=== PATIENT | female | born 1950 | race Caucasian/White ===

== ENCOUNTER → 2019-10-25 00:01 | Outpatient (RCR) | payer MEDICARE, OTHER, SELFPAY | LOC: ONCMED 08:42 | PROVIDERS: Visit Provider Internal Medicine Medical Oncology | DX: C50.812 Malignant neoplasm of overlapping sites of left female breast (principal); C50.811 Malignant neoplasm of overlapping sites of right female breast; C77.3 Secondary and unspecified malignant neoplasm of axilla and upper limb lymph nodes; Z17.0 Estrogen receptor positive status [ER+]; I10 Essential (primary) hypertension; E03.9 Hypothyroidism, unspecified; D64.9 Anemia, unspecified; F10.20 Alcohol dependence, uncomplicated; Z79.82 Long term (current) use of aspirin; F41.8 Other specified anxiety disorders; Z79.899 Other long term (current) drug therapy; Z85.42 Personal history of malignant neoplasm of other parts of uterus; Z87.891 Personal history of nicotine dependence; Z92.3 Personal history of irradiation | CPT/HCPCS: 36591; 80053; 82306; 82607; 83735; 83880; 84439; 84443; 85025; 99214; J1642 ==

== ENCOUNTER 2019-11-01 06:00 | Outpatient (RCR) | payer MEDICARE, OTHER, SELFPAY ==
[2019-11-01 08:26] LABS: Basophils # 0.1 10^3/uL (0.0-0.1); Basophils % 1.8 %; Eosinophils # 0.1 10^3/uL (0.0-0.8); Eosinophils % 2.3 %; Hematocrit 41.9 % (37.0-47.0); Hemoglobin 13.6 g/dL (11.5-15.3); Lymphocytes # 1.5 10^3/uL (0.8-4.8); Lymphocytes % 37.2 %; Mean Corpuscular HGB Conc 32.5 g/dL (30.0-36.0); Mean Corpuscular Volume 101.7 fL (81-99); Mean Platelet Volume 11.2 fL (7.4-10.4); Monocytes # 0.4 10^3/uL (0.2-0.9); Monocytes % 10.7 %; Neutrophils # 1.9 10^3/uL (1.8-7.7); Nucleated Red Blood Cells % 0 %; Platelet Count 119 10^3/cmm (130-400); Red Blood Count 4.12 10^6/uL (4.1-5.3); Red Cell Distribution Width 14.8 % (12.1-15.1); White Blood Count 3.9 10^3/uL (4.0-10.0)
[2019-11-01 08:40] LABS: Alanine Aminotransferase 17 U/L (0-33); Albumin Level 3.9 g/dL (3.5-5.2); Alkaline Phosphatase 105 IU/L (35-105); Anion Gap 16.8 (5-19); Aspartate Amino Transferase 37 U/L (0-32); Blood Urea Nitrogen 17 mg/dL (8-23); Calcium 10.3 mg/Dl (8.8-10.2); Carbon Dioxide 26 mmol/L (22-29); Chloride 98 mmol/L (98-107); Globulin 3.4 g/dL (1.3-4.6); Glomerular Filtration Rate 71.5 mL/min (90-130); Glucose 106 mg/dL (74-106); Potassium 3.8 mmol/L (3.5-5.1); Sodium 137 mmol/L (136-145); Total Bilirubin 0.9 mg/dL (0.15-1.2); Total Protein 7.3 g/dL (6.6-8.7)
[2019-11-01] MEDS: diphenhydrAMINE 25 mg Capsule PO (10:14)
[2019-11-01] MEDS: acetaminophen 325 mg Tablet 650 MG PO (10:15)
[2019-11-01 13:33] LABS: Magnesium 1.6 mg/dL (1.7-2.3)
--- NOTE | 2019-11-07 10:39 | ONC FU_ITS ---
Dr. Rascon Patient Follow-Up Note Patient: Bee Zheng Unit #: [id number]: 1950 Dicatated By: Tab Rascon M.D.Date of Visit:Nov 01, 2019 Onc Med Follow-up/Prog Note Chief Complaint: Bilateral breast cancer. History of Present Illness: This is a 69 year-old woman with bilateral invasive breast cancer, both locally advanced. The right breast was grade 2 infiltrating ductal carcinoma, stage at least IIB (T2, N1, M0), ER/OH positive and HER-2/bernadine negative. The left breast cancer was grade 3 infiltrating ductal carcinoma, stage at least IIA (T2, NX, M0), ER/OH positive and HER-2/bernadine positive. She had presented with gradually worsening swelling and firmness in her breasts after she had sustained a chest injury in a fall about 9 months ago. Bilateral mammograms on 03/23/2019 were BI-RADS 5, highly suggestive of malignancy. Findings included areas of dense asymmetry in the central right breast measuring 3.5 cm and in the central left breast measuring 4.5 by 3.9 cm. The right breast ultrasound showed an irregular hypoechoic mass at 12:00, middle depth, measuring 3.5 x 2.2 cm. Also noted was eccentric thickening of a lymph node in the right axilla. The left breast ultrasound showed a large amount of shadowing within the central breast mass containing calcifications at 12:00, measuring 4.6 x 3.7 cm. There were small benign-appearing lymph nodes on the left. She underwent bilateral ultrasound-guided biopsies on 04/06/2019. The left breast showed grade 3 infiltrating ductal carcinoma with a minor DCIS component. The breast prognostic profile showed ER positive at 87% and OH positive at 72%. There was overexpression of HER-2/bernadine, 3+ by IHC and amplification ratio by FISH of 2.3 with 7.0 HER-2 copies/cell. The Ki-67 was unfavorable at 22%. The right breast showed grade 2 infiltrating ductal carcinoma. A subsequent prognostic profile on the right breast biopsy showed ER positive at 87% and OH positive at 21%. That tumor was negative for overexpression of HER-2/bernadine, 1+ by IHC and amplification ratio by FISH of 1.0 with 2.4 HER-2 copies/cell. Staging PET/CT on 05/07/2019 showed FDG avid right breast lesion measuring 2.1 cm, SUV 13.7, and a solitary hypermetabolic right axillary lymph node with SUV 5.3, consistent with local metastatic disease. Other right axillary lymph nodes were too small to characterize by PET. The left breast showed 2 nearly contiguous lesions, the more dominant measuring 2.5 x 3.8 cm with SUV 8.3. The more inferior and lateral lesion measured 1.3 x 1.5 cm with SUV 11.7. Left axillary lymph nodes were too small to characterize by PET. There were no areas of uptake to suggest any other metastatic disease. A needle biopsy of the right axillary lymph node on 05/19/2019 showed metastatic carcinoma most consistent with breast primary. Given those findings and with HER-2/bernadine positive disease in the left breast, she was recommended to undergo neoadjuvant chemotherapy with TCH-P. Her medical history is otherwise significant in that she had presented in 2014 anemia, severe enough to require transfusion. This was ultimately determined to be due to endometrial cancer, for which she underwent hysterectomy/bilateral salpingo-oophorectomy. Those records are not available at this time. She indicates that there was no lymph node involvement. She apparently did receive postoperative radiation with HDR implant. There has been no evidence of recurrence of the endometrial cancer. Her other medical illnesses include hypertension and hypothyroidism. She has a history of smoking 1-2 packs of cigarettes daily for 50 years. She quit smoking in 2014. She has alcohol use of at least a 6-pack of beer daily. INTERIM HISTORY: On 06/02/2019 she began cycle 1 of neoadjuvant chemotherapy with TCH-P. She tolerated the treatment without acute toxicity. She subsequently developed pretty severe diarrhea, beginning around a 3 or 4. It lasted for 2 weeks. She continued with cycle 2 on 06/28/2019. That treatment was complicated by a pretty severe skin eruption, and she continued to have diarrhea. With cycle 3 on 07/26/2019 I did opt to omit the docetaxel. With had cycle there was no recurrence of skin eruption, but she continued to have severe diarrhea. With cycle 4, on 08/23/2019, I opted to admit the Perjeta and replace the taxane portion of her chemotherapy with Abraxane. On 08/29/2019 she was admitted to the hospital with severe pancytopenia. She continued to have diarrhea and she also developed significant liver dysfunction. She required transfusion of PRBC and platelets. She had uneventful recovery of her white blood cell count, but she continued to have severe thrombocytopenia at discharge, requiring additional outpatient platelet pheresis. I had seen her for a follow-up visit on 09/20/2019. Given the multiple toxicities she had experienced, I opted not to attempt any further chemotherapy. A restaging PET/CT on 09/24/2019 showed primary right breast carcinoma measuring 1.6 cm with SUV 4.6, significantly improved from the prior study. The solitary right axillary lymph node had resolved. The nearly contiguous left breast lesions reported to have SUV of 3.1, also representing a significant response to therapy. At her follow-up visit on 10/25/2019 she still had very limited activity, and she also continued to have significant lower extremity edema. At that point her treatment remained on hold. She is seen for a follow-up visit. She still has limited activity, but she is feeling better than she has been. She is ambulating with a walker. Her ECOG score is 2. Her appetite also is getting better. She has no fever or night sweats. She reports having some hearing loss. She has a little bit of dry cough. She has no shortness of breath or chest pain. She still occasionally has a little nausea. She has just occasional diarrhea now. Bladder function has improved with the diuretic. She is having pain in her back, particularly in the area of the shoulder blade on the left side. She is having significant neuropathy pain in her legs. Medications: Aspirin 1 Tablet (of 81 mg) Oral daily, Imodium A-D 2 Tablet (of 2 mg) Oral b.i.d. PRN, Lasix 1 Tablet (of 40 mg) Oral daily, Levothyroxine Sodium 1 (112 mcg) Tablet Oral daily, LORazepam 0.5 - 1 Tablet (of 1 mg) Oral t.i.d. PRN, Magnesium 1 Tablet Oral b.i.d., Potassium Chloride ER 2 Tablet (of 10 meq) Tablet, controlled release Oral daily, Prochlorperazine Maleate 1 Tablet (of 10 mg) Oral q 4 hours PRN Allergies: No Known Allergies. Review of Systems: Constitutional - Her energy is getting better. She is up and around at home with a walker. Her appetite is getting better, but her weight is down. No fever, chills, hot flashes, or night sweats. ECOG score is 2, ENMT - She has sinus drainage. No mouth sores. No sore throat or difficulty swallowing. Her hearing is decreased in her left ear, Hematologic/Lymphatic - She bruises easily, Respiratory - No shortness of breath. She has an occasional dry cough. No pleuritic pain or hemoptysis, Cardiovascular - No angina pain. No palpitations, Gastrointestinal - She has occasional nausea. No vomiting. No heartburn or acid reflux. She has occasional diarrhea. No blood in the stool or black stools, Genitourinary (F) - No dysuria or hematuria. No urinary frequency. No urgency or incontinence, Musculoskeletal - She has pain in her back, shoulder blades and legs, Integumentary - No skin complications, Neurologic - No headache or dizziness. No numbness/paresthesias or other focal neurologic symptoms, Psychiatric - She has some anxiety and depression. She has trouble sleeping at night. Vital Signs: Performed on Nov 01, 2019 11:10 Height - 66.00 in Temperature - 97.2 F (LOW) Pulse - 99 /min Respiration - 18 /min BP - 135/92 mm(hg) O2 Sat - 96 % Pain - 0 Fatigue - 0 Performed on Nov 01, 2019 09:26 Height - 66.00 in Weight - 176.4 lbs (HIGH) BSA - 1.90 sq.m BMI - 28.47 Temperature - 97.9 F (LOW) Pulse - 110 /min (HIGH) Respiration - 22 /min BP - 93/62 mm(hg) O2 Sat - 94 % (LOW) Pain - 2 Physical Examination: Constitutional - She still appears somewhat weak generally, but definitely improved, Eyes - Sclerae nonicteric. Conjunctivae clear, ENMT - No lesions noted in the oral cavity. Both external ear canals appear to be occluded with cerumen, Hematologic/Lymphatic - No cervical, clavicular, or axillary adenopathy, Respiratory - Lungs are clear with good air movement bilaterally, Cardiovascular - Heart rhythm is regular. She has a mild tachycardia, and she appears to have a split S1. There is no murmur, sandrine, or rub noted, Abdomen - Soft. Liver and spleen are not enlarged. There is no abdominal mass or ascites noted and there is no inguinal adenopathy, Extremities - There is just slight residual lower extremity edema, Neurologic - No focal neurologic deficits noted. Lab/Imaging: Test performed on Oct 25, 2019 11:30 Magnesium 1.2 mg/dL T4, Free 1.92 ng/dL TSH 0.56 uIU/mL Vitamin B12 571 pg/mL Vitamin D (25-Hydroxy), Total 52 ng/mL Test performed on Oct 25, 2019 10:14 Sodium 135 mmol/L Potassium 3.5 mmol/L Chloride 99 mmol/L CO2 24 mmol/L Anion Gap 15.5 BUN 11 mg/dL Creatinine 0.7 mg/dL Cr Clearance (Est) 110.2400 mL/min eGFR 83.5 mL/min Glucose 95 mg/dl Calcium 9.6 mg/dL Protein, Total 6.7 g/dL Albumin 3.6 g/dL Globulin 3.1 gm/dL Bilirubin, Total 0.8 mg/dL ALT (SGPT) 14 U/L AST (SGOT) 26 U/L Alkaline Phosphatase 91 U/L WBC 4.0 10 3/uL RBC 3.76 10 6/uL HGB 12.3 g/dL HCT 38.4 % MCV 102.1 fl MCH 32.7 pg MCHC 32.0 g/dl RDW 14.6 % Platelet Count 89 10 3/cmm MPV 11.3 fl Neutrophils 2.1 10 3/uL Lymphocytes 1.4 10 3/uL Monocytes 0.4 10 3/uL Eosinophils 0.1 10 3/uL Basophils 0.1 10 3/uL Neutrophil % 51.3 % Lymphocyte % 35.8 % Monocyte % 9.2 % Eosinophil % 2.0 % Basophils % 1.7 % Test performed on Sep 06, 2019 13:15 Platelet Pheresis, Leukored TRANSFUSED PRODUCT: LEUKRD/PLAT PHERESIS 1ST CONT COUNT: 2 ABO & Rh Type BLD TYPE A POSITIVE Impression: 1. Patient with bilateral invasive breast cancer, both locally advanced. The right breast was grade 2 infiltrating ductal carcinoma, stage at least IIB (T2, N1, M0), ER/OH positive and HER-2/bernadine negative. The left breast cancer was grade 3 infiltrating ductal carcinoma, stage at least IIA (T2, NX, M0), ER/OH positive and HER-2/bernadine positive. 2. She underwent bilateral ultrasound directed breast biopsies on 04/06/2019, and she underwent ultrasound directed needle biopsy of a right axillary lymph node on 05/19/2019. 3. She has a history of endometrial cancer for which she underwent hysterectomy/bilateral salpingo-oophorectomy and postoperative HDR implant radiation in 2014. Her other medical illnesses include: 4. Hypertension. 5. Hypothyroidism. As the left breast cancer was HER-2/bernadine positive, she was recommended to undergo neoadjuvant chemotherapy with TCH-P. She began cycle 1 on 06/02/2019. The treatment was complicated by pretty severe diarrhea, beginning about day 3 or 4 and lasting about 2 weeks. She was able to continue with cycle 2 on 06/28/2019. That treatment was further complicated by a severe skin eruption. With cycle 3 on 07/26/2019 I did opt to omit the docetaxel. She had no recurrence of the skin eruption, but she continued to have grade 3 diarrhea, and she also had moderately severe neutropenia. With cycle 4, on 08/23/2019, I opted to omit the Perjeta and reintroduce the taxanes portion of her chemotherapy in the form of Abraxane. She had significant toxicity with that treatment including severe pancytopenia, liver dysfunction, and continued diarrhea. She also developed significant neuropathy. However, she did have a significant response to treatment by clinical evaluation and by PET/CT, though with obvious residual disease in both breasts. At her follow-up visit on 10/25/2019 she still had very limited activity, and her treatment remained on hold. Since then she has had significant improvement in her lower extremity edema. She still has limited activity tolerance, but it is definitely improving. Plan: As before, I do not intend to attempt any further chemotherapy, but she will now resume treatment with single agent Herceptin at the 3-week dosing schedule, to complete a full year treatment. I have contacted Dr. Pompa to begin the process of scheduling her for bilateral mastectomy. She would then be an appropriate candidate for postoperative chest wall radiation and she also will be eligible for adjuvant hormonal therapy. Signed By: Tba Rascon M.D. <<Signature on File>>
== END 2019-11-01 23:59 | disposition home or self-care (01) ==
LOC: ONCMED 06:00
PROVIDERS: Visit Provider Internal Medicine Medical Oncology
DX: Z51.12 Encounter for antineoplastic immunotherapy (principal); C50.812 Malignant neoplasm of overlapping sites of left female breast; C50.811 Malignant neoplasm of overlapping sites of right female breast; Z17.0 Estrogen receptor positive status [ER+]; C77.3 Secondary and unspecified malignant neoplasm of axilla and upper limb lymph nodes; Z90.710 Acquired absence of both cervix and uterus; I10 Essential (primary) hypertension; E03.9 Hypothyroidism, unspecified; F10.20 Alcohol dependence, uncomplicated; G62.0 Drug-induced polyneuropathy; T45.1X5A Adverse effect of antineoplastic and immunosuppressive drugs, initial encounter; Z85.42 Personal history of malignant neoplasm of other parts of uterus; Z87.891 Personal history of nicotine dependence; Z92.3 Personal history of irradiation
CPT/HCPCS: 80053; 83735; 85025; 96413; 99214; J7050; J9355

== ENCOUNTER 2019-11-17 11:11 | Observation (INO) | payer MEDICARE, OTHER, SELFPAY ==
[2019-11-16 13:49] VITALS: BMI 28.0
[2019-11-17] VITALS (18 sets, daily range): BP systolic 105–123; BP diastolic 70–88; PULSE 78–108; RESP 12–18; TEMP 36.2–37; O2SAT 83–96
[2019-11-17] MEDS: sodium chloride 0.9% 1,000 ML 30 ML IV (07:18)
--- NOTE | 2019-11-17 07:42 | ANES.PREANES ---
Pre-Anesthetic Assessment Pre-Anesthetic Assessment: Height/Weight: Height 1.68 m Weight 78.925 kg Temp Pulse Resp BP Pulse Ox 97.2 F L 86 18 118/86 93 11/17/19 06:49 11/17/19 06:49 11/17/19 06:49 11/17/19 06:49 11/17/19 06:49 Preop Diagnosis: Bilateral Breast CA Proposed Procedure: Operation Date: 11/17/19 08:00 Proposed Procedures p Mastectomy Radial(Bilateral) - Vern Pompa MD Last intake: Intake Last Liquid Date 11/16/19 Last Liquid Time 19:00 Last Solid Date 11/16/19 Last Solid Time 17:00 Last Intake: 19:00 Social: Packs per day: 1 Pack years: 46 Comment: quit 5 y Exam: Pre-Anes Outpt Exam: alert, oriented x 3, clear to auscultation bilaterally and regular rate & rhythm Airway: Submandibular: WNL Cervical ROM: WNL MP: 1 Dentition: Chipped CV/HEM: CV/HEM: HTN Comments: borderline : : UTI Metabolic: Metabolic: Thyroid Comments: replacement 30 y Musc/skel: Musc/skel: Lower Back Pain PFSH Anesthesia PFSH: Family History (Updated 11/16/19 @ 13:43 by [email or web address]) Other Cancer Social History (Updated 11/16/19 @ 13:43 by [email or web address]) Smoking and tobacco status: former smoker Alcohol intake: current Data Anesthesia Cardiac Studies: No Data to Display
[2019-11-17] MEDS: midazolam 1 mg/mL INJ 2 mL 2 MG IVP (08:09)
--- NOTE | 2019-11-17 09:16 | PM.HPUD ---
H&P update H&P Update: DATE OF SURGERY/PROCEDURE: 11/17/19 DATE H&P PERFORMED: 11/17/19 PLANNED PROCEDURE: Operation Date: 11/17/19 08:00 Proposed Procedures p Mastectomy Radial(Bilateral) - Vern Pompa MD Full H&P Perinent History: Family History: Family History (Updated 11/16/19 @ 13:43 by Megan Manrique) Other Cancer Social History: Social History Smoking and tobacco status: former smoker Alcohol intake: current
--- NOTE | 2019-11-17 10:56 | PM.OP ---
Operative Report Date of procedure: 11/17/19 Pre-op Diagnosis: Bilateral Breast CA Post-op diagnosis: same Procedure Done: Bilateral modified radical mastectomies. Specimens removed/disposition: Bilateral breasts with associated axillary contents. Surgeon: Vern Pompa Anesthesia: General Estimated blood loss (mL): 150 Complications: None. Condition: stable Disposition: PACU Procedure: The patient was brought to the operating room and was placed in a supine position on the operating room table. General endotracheal anesthesia was induced by means of a laryngeal mask airway. The chest and axillae were prepped and draped in a sterile fashion. Attention was first directed to the right side. An elliptical incision was carried out from just lateral to the sternum, surrounding the entire nipple areolar complex and coming back together at the inferior aspect of the axilla. Cautery was used to divide the dermis and was used to maintain hemostasis throughout the procedure. Skin flaps were created both superiorly and inferiorly by elevating the skin with skin hooks and using cautery to divide the breast tissue at the junction of the breast tissue and subcutaneous fat. This was carried out down to the chest wall both superiorly and inferiorly as well as medially, encompassing all of the breast tissue. The breast was then taken off of the chest wall using cautery from a medial to lateral direction. Significant vessels seen during the dissection were ligated with ties of 2-0 Vicryl. The dissection was then carried out around the lateral edge of the pectoralis muscle and the axilla was entered. Medially, the dissection was carried out along the chest wall and the long thoracic nerve was identified. The dissection was carried out laterally and posteriorly and the thoracodorsal vessels and nerve were identified. The tissue anterior to the nerves was brought inferiorly, once again ligating vessels with ties of 2-0 Vicryl. The specimen was removed. The entire wound was irrigated and some small bleeding points were controlled with cautery. A 19 English fluted Esau drain was brought through a separate stab incision underneath the incision laterally under the axilla. The drain was sewn in at the skin using a suture of 2-0 silk. The drain was laid along the axilla and up along the anterior chest wall under the skin flaps. The dermis at the incision was brought back together using multiple inverted interrupted sutures of 3-0 Vicryl and the skin was finally approximated using skin nataly. Attention was then directed to the left side where an identical procedure was carried out. Findings were almost identical. Drain placement and closure was the same. Some triple antibiotic ointment was placed over the incisions and sterile fluff dressings and a binder were then placed. The patient was subsequently taken to the recovery room in stable condition postoperatively.
[2019-11-17] MEDS: ondansetron 2 mg/ML SDV 2 mL 4 MG IVP ×3 (11:06→21:31)
[2019-11-17 12:06] LABS: Glucose Point of Care 90 mg/dL (70-110)
[2019-11-17] MEDS: FUROsemide 40 mg Tablet PO (12:28)
[2019-11-17] MEDS: aspirin 81 mg Chew Tablet PO (12:28)
[2019-11-17] MEDS: HYDROcodone-acetaminophen 5-325 mg Tablet 2 TAB PO ×2 (12:28→16:39)
[2019-11-17] MEDS: D5-NS 0.45% + KCL 20 mEq 20 MEQ/1,000 ML BAG 100 MEQ IV ×2 (12:30→22:39)
[2019-11-17] MEDS: famotidine 20 mg/2 mL INJ IVP (12:58)
[2019-11-17] MEDS: ceFAZolin 1,000 MG in sodium chloride 0.9% (plus) 50 ML 100 MG IV (16:38)
[2019-11-17] MEDS: gabapentin 300 mg Capsule PO (18:39)
[2019-11-18 00:32] VITALS: BP 112/76; PULSE 97; RESP 19; TEMP 36.8; O2SAT 93
[2019-11-18] MEDS: ceFAZolin 1,000 MG in sodium chloride 0.9% (plus) 50 ML 100 MG IV (01:06)
[2019-11-18] MEDS: famotidine 20 mg/2 mL INJ IVP (01:07)
[2019-11-18 03:39] VITALS: BP 120/75; PULSE 96; RESP 22; TEMP 36.6; O2SAT 90
[2019-11-18] MEDS: heparin 5,000 unit/mL INJ 1 mL 5000 UNIT SUBCUT (05:32)
[2019-11-18] MEDS: TRAMadol 50 mg Tablet PO (06:34)
[2019-11-18 06:36] LABS: Glucose Point of Care 157 mg/dL (70-110)
[2019-11-18 06:36] LABS: Glucose Point of Care 155 mg/dL (70-110)
[2019-11-18 07:46] VITALS: BP 114/81; PULSE 92; RESP 18; TEMP 36.5; O2SAT 94
--- NOTE | 2019-11-18 08:55 | P.PN_ITS ---
Subjective Subjective: Interval history: The patient feels well this morning. She has had minimal pain medication. She would like to go home. She was placed on oxygen by nasal cannula last night as her oxygen saturations were around 90%, but this was completely asymptomatic. Vitals/I&O/Wt Last Vital Signs Temp 97.7 F 11/18/19 07:46 Pulse 92 11/18/19 07:46 Resp 18 11/18/19 07:46 BP 114/81 11/18/19 07:46 Pulse Ox 94 11/18/19 07:46 11/17/19 11/18/19 11/18/19 22:59 06:59 14:59 Intake Total 1080 / 1250 280 / 1530 Output Total 860 / 1080 482 / 1562 Balance 220 / 170 -202 / -32 Weight last 48 hrs Weight 174 lb Physical Exam Narrative: EXAM NARRATIVE: Lungs are clear to auscultation. I removed the patient's nasal cannula and her oxygen saturations on room air were maintained around 94 to 95%. The Esau drain bulbs have some sanguineous/serosanguineous fluid in the bulbs. The dressing was completely removed and the wounds look good. A light dressing was reapplied. A&P Assessment and plan (1) Bilateral breast cancer: The patient is status post bilateral modified radical mastectomies. She appears to be doing very well and is anxious to go home. The patient will be discharged with plans to follow-up with me in the office as an outpatient. Status: Acute Code(s): C50.911 - Malignant neoplasm of unspecified site of right female breast; C50.912 - Malignant neoplasm of unspecified site of left female breast Attestations Medical Necessity Statement*: Patient to be discharged today. Coding Level of Care Code Acute Monogram And Letter Paster for [facility] Fwd Diagnoses Bilateral breast cancer C50.911; C50.912
[2019-11-18] MEDS: magnesium oxide 400 mg tablet PO (09:24)
[2019-11-18] MEDS: aspirin 81 mg Chew Tablet PO (09:24)
[2019-11-18] MEDS: levothyroxine 112 mcg Tablet PO (09:25)
[2019-11-18 09:30] VITALS: BP 114/81; PULSE 92; RESP 18; TEMP 36.5; O2SAT 94
--- NOTE | 2019-11-30 06:34 | P.DS_ITS ---
Discharge Providers Date of Admission: 11/17/19 11:11 Date of Discharge: Date of Discharge: November 18, 2019 Attending Provider at Admission: Vern Pompa MD Attending Provider at Discharge: Vern Pompa MD Primary Care Provider: Magalie Patino Diagnoses at Discharge Discharge Diagnosis (1) Bilateral breast cancer: Status: Acute Reason for Visit Reason for Visit: Reason For Visit: Double Mastecomy Hospital Course Discharge Summary: The patient was admitted on 11/17/2019. She underwent bilateral modified radical mastectomies on the same day. Postoperatively she was placed on the medical surgical floor. She did well all night and by the following morning she was having minimal discomfort, her wounds look good, and she was anxious to go home. Arrangements were made for her to be discharged after she was instructed with respect to wound care, activity limitations, etc. Arrangements were made for her to follow-up in my office as an outpatient. Physical Exam Narrative: EXAM NARRATIVE: Vital signs are stable. Wounds look good. The Esau drains both contain some serosanguineous fluid. Discharge Data Data Completed and Pending: Completed Studies During Hospitalization Category Date Time Status Pathology: Surgic al [PTH] Routine Pth 11/17/19 11:07 Completed Vitals: Last Vital Signs Temp 97.7 F 11/18/19 09:30 Pulse 92 11/18/19 09:30 Resp 18 11/18/19 09:30 BP 114/81 11/18/19 09:30 Pulse Ox 94 11/18/19 09:30 Discharge Plan Discharge Patient Disposition: Home, Self-Care Condition: Stable Prescriptions: New tramadol 50 mg Tablet 50 mg PO Q6H PRN (Reason: Moderate Pain) Qty: 20 RF: 0 Continued furosemide 40 mg tablet 40 mg PO DAILY RF: 0 potassium chloride 10 mEq tablet extended release 20 meq PO BID RF: 0 magnesium oxide 400 mg (241.3 mg magnesium) tablet 400 mg PO DAILY RF: 0 gabapentin 300 mg capsule 300 mg PO BID RF: 0 aspirin 81 mg Tablet,Chewable 81 mg PO DAILY RF: 0 levothyroxine 112 mcg tablet 112 mcg PO DAILY RF: 0 Discharge Orders: Discharge Order (Routine); Ordered 11/18/19 Ordered By: Vern Pompa Referrals: Vern Pompa MD [Physician] - 2 weeks (You have a appointment on @ 1030am.) Discharge Diet: Advance as tolerated Discharge Activity: Resume usual activity Patient Instructions: Tramadol (By mouth), Dong-Espinal Drain Care (GEN), Mastectomy (DC) Activity Restrictions/Additional Instructions: 1. Discharge to home today. 2. Appointment to see me in 10-14 days. 3. Bandage may be removed tomorrow to shower. Keep bandage on if needed when not bathing as discussed. 4. Nursing: Please teach patient how to empty Esau drains and reconstitute bulbs. Empty Esau drains at home as needed. 5. When dressing is off daily, regularly manually massage/press on the areas around the incision to flatten out any ripples or ridges that may be developing to keep the skin flat. 6. Tramadol 50 mg 1 tablet by mouth every 6 hours as needed for pain. #20, no refills. Discharge Date/Time: 11/18/19 11:19 Discharge Attestations Time Spent in Discharge Care*: less than 30 min Quality Metrics Clinical Quality Measures During this hospital stay, did patient experience: None Coding Level of Care Code Acute Pharmacy Coordinator for [facility] Fwd Diagnoses Bilateral breast cancer C50.911; C50.912
== END 2019-11-18 11:19 | disposition home or self-care (01) ==
LOC: MEDSURG 11:12
PROVIDERS: Admitting Provider Surgery; PCP Nurse Practitioner Family; Visit Provider Surgery
PROC: (CPT 19303; principal; 2019-11-17 08:00)
DX: C50.912 Malignant neoplasm of unspecified site of left female breast (principal); C50.911 Malignant neoplasm of unspecified site of right female breast; Z79.82 Long term (current) use of aspirin; I10 Essential (primary) hypertension; Z87.891 Personal history of nicotine dependence
CPT/HCPCS: 19303; 12345; 36416; 82962; 88309; 96361; 96365; 96372; 96374; 96375; G0378; J0690; J1100; J1644; J1885; J2001; J2250; J2405; J2704; J3010; J3490; J7030

== ENCOUNTER 2019-11-22 08:21 | Outpatient (RCR) | payer MEDICARE, OTHER, SELFPAY ==
[2019-11-21 15:40] LABS: Basophils # 0.1 10^3/uL (0.0-0.1); Basophils % 1.2 %; Eosinophils # 0.1 10^3/uL (0.0-0.8); Eosinophils % 1.6 %; Hematocrit 35.9 % (37.0-47.0); Hemoglobin 11.6 g/dL (11.5-15.3); Lymphocytes # 1.2 10^3/uL (0.8-4.8); Lymphocytes % 28.6 %; Mean Corpuscular HGB Conc 32.3 g/dL (30.0-36.0); Mean Corpuscular Volume 102.3 fL (81-99); Monocytes # 0.3 10^3/uL (0.2-0.9); Monocytes % 7.6 %; Neutrophils # 2.6 10^3/uL (1.8-7.7); Neutrophils % 60.8 %; Nucleated Red Blood Cells % 0 %; Platelet Count 137 10^3/cmm (130-400); Red Blood Count 3.51 10^6/uL (4.1-5.3); Red Cell Distribution Width 13.9 % (12.1-15.1); White Blood Count 4.3 10^3/uL (4.0-10.0)
[2019-11-21 15:44] LABS: Alanine Aminotransferase 21 U/L (0-33); Albumin Level 3.8 g/dL (3.5-5.2); Alkaline Phosphatase 114 IU/L (35-105); Anion Gap 15.9 (5-19); Blood Urea Nitrogen 18 mg/dL (8-23); Calcium 10.2 mg/dL (8.5-10.5); Carbon Dioxide 30 mmol/L (22-29); Chloride 98 mmol/L (98-107); Globulin 3.2 g/dL (1.3-4.6); Glomerular Filtration Rate 62.5 mL/min (90-130); Glucose 115 mg/dL (74-106); Potassium 3.9 mmol/L (3.5-5.1); Sodium 140 mmol/L (136-145); Total Bilirubin 0.5 mg/dL (0.15-1.2)
[2019-11-21 16:03] LABS: Aspartate Amino Transferase 41 U/L (0-32)
[2019-11-22] MEDS: acetaminophen 325 mg Tablet 650 MG PO (14:55)
[2019-11-22] MEDS: sodium chloride 0.9% 250 ML 75 ML IV (14:55)
[2019-11-22] MEDS: diphenhydrAMINE 25 mg Capsule PO (14:57)
== END 2019-11-25 23:59 | disposition home or self-care (01) ==
LOC: ONCMED 08:21
PROVIDERS: PCP Nurse Practitioner Family; Visit Provider Internal Medicine Medical Oncology
DX: Z51.12 Encounter for antineoplastic immunotherapy (principal); C50.812 Malignant neoplasm of overlapping sites of left female breast; C50.811 Malignant neoplasm of overlapping sites of right female breast
CPT/HCPCS: 80053; 85025; 96413; J7050; J9355

== ENCOUNTER 2019-12-13 05:49 | Outpatient (RCR) | payer MEDICARE, OTHER, SELFPAY ==
[2019-12-12 16:15] LABS: Basophils # 0.1 10^3/uL (0.0-0.1); Basophils % 1.4 %; Eosinophils # 0.1 10^3/uL (0.0-0.8); Eosinophils % 2.8 %; Hematocrit 38.5 % (37.0-47.0); Hemoglobin 12.3 g/dL (11.5-15.3); Lymphocytes # 1.2 10^3/uL (0.8-4.8); Lymphocytes % 28.7 %; Mean Corpuscular HGB Conc 31.9 g/dL (30.0-36.0); Mean Corpuscular Hemoglobin 32.5 pg (28.0-34.0); Mean Corpuscular Volume 101.6 fL (81-99); Mean Platelet Volume 10.9 fL (7.4-10.4); Monocytes # 0.4 10^3/uL (0.2-0.9); Monocytes % 8.9 %; Neutrophils # 2.5 10^3/uL (1.8-7.7); Nucleated Red Blood Cells % 0 %; Platelet Count 164 10^3/cmm (130-400); Red Blood Count 3.79 10^6/uL (4.1-5.3); Red Cell Distribution Width 13.4 % (12.1-15.1); White Blood Count 4.3 10^3/uL (4.0-10.0)
[2019-12-12 18:55] LABS: Alanine Aminotransferase 20 U/L (0-33); Albumin Level 3.6 g/dL (3.5-5.2); Alkaline Phosphatase 138 IU/L (35-105); Anion Gap 16.1 (5-19); Aspartate Amino Transferase 33 U/L (0-32); Blood Urea Nitrogen 18 mg/dL (8-23); Calcium 10.3 mg/dL (8.5-10.5); Carbon Dioxide 28 mmol/L (22-29); Chloride 102 mmol/L (98-107); Globulin 3.7 g/dL (1.3-4.6); Glomerular Filtration Rate 49.5 mL/min (90-130); Glucose 92 mg/dL (65-115); Magnesium 1.9 mg/dL (1.7-2.3); Potassium 4.1 mmol/L (3.5-5.1); Sodium 142 mmol/L (136-145); Total Bilirubin 0.5 mg/dL (0.15-1.2); Total Protein 7.3 g/dL (6.6-8.7)
[2019-12-13] MEDS: diphenhydrAMINE 25 mg Capsule PO (15:20)
[2019-12-13] MEDS: acetaminophen 325 mg Tablet 650 MG PO (15:20)
[2019-12-13] MEDS: sodium chloride 0.9% 250 ML 75 ML IV (15:20)
--- NOTE | 2019-12-14 10:12 | ONC FU_ITS ---
[facility] Patient Note Patient: Bee Zheng Unit #: [id number]: 1950 Dictated By: Christopher KatzDate of Visit: Dec 13, 2019 Onc MED Follow-Up/Prog Note Chief Complaint: Bilateral breast cancer. History of Present Illness: Mrs Zheng is a 69 year-old woman with bilateral invasive breast cancer, both locally advanced. The right breast was grade 2 infiltrating ductal carcinoma, stage at least IIB (T2, N1, M0), ER/OR positive and HER-2/bernadine negative. The left breast cancer was grade 3 infiltrating ductal carcinoma, stage at least IIA (T2, NX, M0), ER/OR positive and HER-2/bernadine positive. She had presented with gradually worsening swelling and firmness in her breasts after she had sustained a chest injury in a fall about 9 months ago. Bilateral mammograms on 03/23/2019 were BI-RADS 5, highly suggestive of malignancy. Findings included areas of dense asymmetry in the central right breast measuring 3.5 cm and in the central left breast measuring 4.5 by 3.9 cm. The right breast ultrasound showed an irregular hypoechoic mass at 12:00, middle depth, measuring 3.5 x 2.2 cm. Also noted was eccentric thickening of a lymph node in the right axilla. The left breast ultrasound showed a large amount of shadowing within the central breast mass containing calcifications at 12:00, measuring 4.6 x 3.7 cm. There were small benign-appearing lymph nodes on the left. She underwent bilateral ultrasound-guided biopsies on 04/06/2019. The left breast showed grade 3 infiltrating ductal carcinoma with a minor DCIS component. The breast prognostic profile showed ER positive at 87% and OR positive at 72%. There was overexpression of HER-2/bernadine, 3+ by IHC and amplification ratio by FISH of 2.3 with 7.0 HER-2 copies/cell. The Ki-67 was unfavorable at 22%. The right breast showed grade 2 infiltrating ductal carcinoma. A subsequent prognostic profile on the right breast biopsy showed ER positive at 87% and OR positive at 21%. That tumor was negative for overexpression of HER-2/bernadine, 1+ by IHC and amplification ratio by FISH of 1.0 with 2.4 HER-2 copies/cell. Staging PET/CT on 05/07/2019 showed FDG avid right breast lesion measuring 2.1 cm, SUV 13.7, and a solitary hypermetabolic right axillary lymph node with SUV 5.3, consistent with local metastatic disease. Other right axillary lymph nodes were too small to characterize by PET. The left breast showed 2 nearly contiguous lesions, the more dominant measuring 2.5 x 3.8 cm with SUV 8.3. The more inferior and lateral lesion measured 1.3 x 1.5 cm with SUV 11.7. Left axillary lymph nodes were too small to characterize by PET. There were no areas of uptake to suggest any other metastatic disease. A needle biopsy of the right axillary lymph node on 05/19/2019 showed metastatic carcinoma most consistent with breast primary. Given those findings and with HER-2/bernadine positive disease in the left breast, she was recommended to undergo neoadjuvant chemotherapy with TCH-P. Her medical history is otherwise significant in that she had presented in 2014 anemia, severe enough to require transfusion. This was ultimately determined to be due to endometrial cancer, for which she underwent hysterectomy/bilateral salpingo-oophorectomy. Those records are not available at this time. She indicates that there was no lymph node involvement. She apparently did receive postoperative radiation with HDR implant. There has been no evidence of recurrence of the endometrial cancer. Her other medical illnesses include hypertension and hypothyroidism. She has a history of smoking 1-2 packs of cigarettes daily for 50 years. She quit smoking in 2014. She has alcohol use of at least a 6-pack of beer daily. INTERIM HISTORY: On 06/02/2019 she began cycle 1 of neoadjuvant chemotherapy with TCH-P. She tolerated the treatment without acute toxicity. She subsequently developed pretty severe diarrhea, beginning around a 3 or 4. It lasted for 2 weeks. She continued with cycle 2 on 06/28/2019. That treatment was complicated by a pretty severe skin eruption, and she continued to have diarrhea. With cycle 3 on 07/26/2019 I did opt to omit the docetaxel. With had cycle there was no recurrence of skin eruption, but she continued to have severe diarrhea. With cycle 4, on 08/23/2019, I opted to admit the Perjeta and replace the taxane portion of her chemotherapy with Abraxane. On 08/29/2019 she was admitted to the hospital with severe pancytopenia. She continued to have diarrhea and she also developed significant liver dysfunction. She required transfusion of PRBC and platelets. She had uneventful recovery of her white blood cell count, but she continued to have severe thrombocytopenia at discharge, requiring additional outpatient platelet pheresis. Dr Rascon had seen her for a follow-up visit on 09/20/2019. Given the multiple toxicities she had experienced, it was opted not to attempt any further chemotherapy. A restaging PET/CT on 09/24/2019 showed primary right breast carcinoma measuring 1.6 cm with SUV 4.6, significantly improved from the prior study. The solitary right axillary lymph node had resolved. The nearly contiguous left breast lesions reported to have SUV of 3.1, also representing a significant response to therapy. At her follow-up visit on 10/25/2019 she still had very limited activity, and she also continued to have significant lower extremity edema. At that point her treatment remained on hold. Mrs. Zheng resumed Herceptin on November 01, 2019. She has had 2 doses thus far. She is tolerated both of them well. On November 17, 2019 she underwent bilateral modified radical mastectomy with axillary lymph node biopsy. The pathology report from November 17, 2019 indicates the left breast and axillary contents had multifocal residual invasive ductal carcinoma grade 2/3; invasive carcinoma invades the dermis and dermal lymphatics and the nipple and adjacent skin; rare foci of ductal carcinoma in situ, solid and cribriform patterns, low nuclear grade; margins free of invasive carcinoma and ductal carcinoma in situ; 6 of 8 axillary lymph nodes positive with metastatic carcinoma. Right breast and axillary contents report focal residual invasive ductal carcinoma, grade 1/3 with extensive fibrosis; residual ductal carcinoma in situ, solid pattern, intermediate nuclear grade; small intraductal papilloma; extensive sclerosing adenosis with numerous microcalcifications; focal fibroadenomatoid change; margins free of invasive carcinoma and ductal carcinoma in situ; 8 of 8 axillary lymph nodes reported with metastatic carcinoma. Pathology reports staging as pT2, pN2a -IIIA. Mrs. Zheng is here today for follow-up. She has no new concerns. She is recovered well from surgery. She states her energy is improving. She is eating good. She is able to get around and do some things around the house as well. She denies any nausea or vomiting. She still has some residual neuropathy but she states it is getting better. She did inquire about dropping her potassium her potassium is normal at 4.1. She states she is ready to get off of some of her medications. She continues to have some intermittent lower extremity edema but it does recover well when she elevates her feet. She states is worse of course when she is up on them. She denies any diarrhea or constipation. She has had no mouth sores, sore throat or difficulty swallowing. She states her breathing is normal for her. She has no new concerns today. Her ECOG is 2. She is doing some exercises around the house try to strengthen her legs. She is still utilizing a walker to help with mobility. She states she still does feels a little weak in the legs at times but is been able to go without it further distances and has not had any near falls or falls. She states that she feels her legs are getting stronger. Past Medical History: Anemia Diverticulosis History of uterine cancer Hypertension Hypothyroidism Past Surgical History: Hernia repair Tubal ligation Mastectomy in 2019 - double mastectomy Hysterectomy/bilateral salpingo-oophorectomy in 2014 Allergies: No Known Allergies. Medications: Aspirin 1 Tablet (of 81 mg) Oral daily Imodium A-D 2 Tablet (of 2 mg) Oral b.i.d. PRN Lasix 1 Tablet (of 40 mg) Oral daily Levothyroxine Sodium 1 (112 mcg) Tablet Oral daily LORazepam 0.5 - 1 Tablet (of 1 mg) Oral t.i.d. PRN Magnesium 1 Tablet Oral b.i.d. Potassium Chloride ER 2 Tablet (of 10 meq) Tablet, controlled release Oral daily Prochlorperazine Maleate 1 Tablet (of 10 mg) Oral q 4 hours PRN traMADol HCl 1 (50 mg) Tablet Oral t.i.d. PRN Family History: Ms. Zheng's mother at age 84: cancer of unknown primary. Ms. Zheng's father at age 80: congestive heart failure. Ms. Zheng has 3 brothers: 3 . She has 4 sisters: 2 alive, 2 . Ms. Zheng's first sister's breast cancer. Father during surgery for cerebral aneurysm. Mother had lung cancer and breast cancer, and a sister has been treated for breast cancer. A sister of stroke associated with cerebral aneurysm. She had 3 brothers, all of whom also are . Social History: Ms. Zheng is and she is an huc. Ms. Zheng quit smoking 4 years ago but had smoked 1.5 packs/day for 50 years. She is an active drinker.She consumes 6 drinks/day 7 days/week. 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 She has a history of smoking 1-2 packs of cigarettes daily for 50 years. She quit smoking in 2014. She has daily alcohol use of at least a 6-pack of beer daily. she hasn't drank in town. Review Of Symptoms: Constitutional Denies fevers, chills, night sweats. Allergic/Immunologic No reactions. Eyes Denies significant visual changes. No diplopia. No amaurosis. ENMT Denies changes in hearing, sore throat, mouth sores, difficulty or changes in swallowing ability, and/or sinus drainage. Hematologic/Lymphatic Denies easy bruising or bleeding. The patient denies any tender or palpable lymph nodes. Breasts No current concerns. Respiratory Denies dyspnea on exertion, chest pain, cough or hemoptysis. Denies orthopnea. Cardiovascular Denies anginal chest pain, palpitations or orthopnea. Gastrointestinal Denies nausea, vomiting, GI bleeding, or constipation. Denies change in bowel habits and/or stool color, no heartburn or early satiety. She denies diarrhea. Genitourinary (F) No hematuria, hesitancy, incontinence, vaginal bleeding, discharge or other problems with urination. Musculoskeletal Denies joint pain, swelling or redness. No decreased range of motion. Integumentary Denies chronic rashes, inflammation, ulcerations or skin changes. Neurologic Denies headache, blurred vision, and no areas of focal weakness or numbness. Normal-assisted gait. No increase in neuropathy symptoms. Maybe some better . Psychiatric Denies insomnia, depression, kat or mood swings. Vital Signs: Performed on Dec 13, 2019 14:39 Height - 66.00 in Weight - 171.8 lbs (LOW) BSA - 1.88 sq.m BMI - 27.73 Temperature - 96.9 F (LOW) Pulse - 82 /min Respiration - 12 /min BP - 117/65 mm(hg) O2 Sat - 94 % (LOW) Pain - 0 Fatigue - 0,2 - Ambulatory/capable of all self-care, unable to perform any work activities. Up and about more than 50% of waking hours. (ECOG) Physical Examination: Constitutional Alert, oriented, no acute distress. Skin pink, warm and dry. Head Normocephalic; atraumatic. Eyes Conjunctivae and sclerae are clear and without icterus. Pupils are reactive and equal. ENMT No oral exudates, ulcers, masses, thrush or mucositis. Oropharynx clear. Tongue normal. Neck Supple without masses or thyromegaly. No jugular venous distension. Hematologic/Lymphatic No petechiae or purpura. No tender or palpable lymph nodes in the cervical or supraclavicular areas. Respiratory Lungs are clear to auscultation without rhonchi or wheezing. Cardiovascular Regular rate and rhythm of heart without murmurs,clicks, gallops or rubs. Breasts Bilateral mastectomy incisions healing well. She still has some nataly left on the incision, but no signs of infection, evisceration or drainage. She has slight seroma underneath the right incision site but it is not warm or red. Abdomen Non-tender, non-distended, no masses, ascites. Good bowel sounds noted in all quads. No guarding or rebound tenderness. No pulsatile masses. Back/Spine Non-tender to palpation. Extremities No visible deformities, no cyanosis, clubbing or edema. Musculoskeletal No tenderness or swelling, normal range of motion without obvious weakness. Integumentary No rashes or lesions. Neurologic No sensory or motor deficits, normal cerebellar function, assisted gait with walker-yolette for her. Psychiatric Alert and oriented times three. Coherent speech. Verbalizes understanding of our discussions today. Laboratory:Test performed on Nov 21, 2019 14:00 Sodium 140 mmol/L Potassium 3.9 mmol/L Chloride 98 mmol/L CO2 30 mmol/L Anion Gap 15.9 BUN 18 mg/dL Creatinine 0.9 mg/dL Cr Clearance (Est) 76.6200 mL/min eGFR 62.5 mL/min Glucose 115 mg/dL Calcium 10.2 mg/dL Protein, Total 7.0 g/dL Albumin 3.8 g/dL Globulin 3.2 g/dL Bilirubin, Total 0.5 mg/dL ALT (SGPT) 21 U/L AST (SGOT) 41 U/L Alkaline Phosphatase 114 IU/L WBC 4.3 10 3/uL RBC 3.51 10 6/uL HGB 11.6 g/dL HCT 35.9 % MCV 102.3 fL MCH 33.0 pg MCHC 32.3 g/dL RDW 13.9 % Platelet Count 137 10 3/cmm MPV 11.0 fL Neutrophils 2.6 10 3/uL Lymphocytes 1.2 10 3/uL Monocytes 0.3 10 3/uL Eosinophils 0.1 10 3/uL Basophils 0.1 10 3/uL Neutrophil % 60.8 % Lymphocyte % 28.6 % Monocyte % 7.6 % Eosinophil % 1.6 % Basophils % 1.2 % Test performed on Oct 25, 2019 11:30 NT proBNP 5134 pg/mL Magnesium 1.2 mg/dL T4, Free 1.92 ng/dL TSH 0.56 uIU/mL Vitamin B12 571 pg/mL Vitamin D (25-Hydroxy), Total 52 ng/mL Test performed on Sep 06, 2019 13:15 Platelet Pheresis, Leukored TRANSFUSED PRODUCT: LEUKRD/PLAT PHERESIS 1ST CONT COUNT: 2 ABO & Rh Type BLD TYPE A POSITIVE Impression: 1. Patient with bilateral invasive breast cancer, both locally advanced. The right breast was grade 2 infiltrating ductal carcinoma, stage at least IIB (T2, N1, M0), ER/OR positive and HER-2/bernadine negative. The left breast cancer was grade 3 infiltrating ductal carcinoma, stage at least IIA (T2, NX, M0), ER/OR positive and HER-2/bernadine positive. 2. She underwent bilateral ultrasound directed breast biopsies on 04/06/2019, and she underwent ultrasound directed needle biopsy of a right axillary lymph node on 05/19/2019. 3. She has a history of endometrial cancer for which she underwent hysterectomy/bilateral salpingo-oophorectomy and postoperative HDR implant radiation in 2014. Her other medical illnesses include: 4. Hypertension. 5. Hypothyroidism. As the left breast cancer was HER-2/bernadine positive, she was recommended to undergo neoadjuvant chemotherapy with TCH-P. She began cycle 1 on 06/02/2019. The treatment was complicated by pretty severe diarrhea, beginning about day 3 or 4 and lasting about 2 weeks. She was able to continue with cycle 2 on 06/28/2019. That treatment was further complicated by a severe skin eruption. With cycle 3 on 07/26/2019 I did opt to omit the docetaxel. She had no recurrence of the skin eruption, but she continued to have grade 3 diarrhea, and she also had moderately severe neutropenia. With cycle 4, on 08/23/2019, I opted to omit the Perjeta and reintroduce the taxanes portion of her chemotherapy in the form of Abraxane. She had significant toxicity with that treatment including severe pancytopenia, liver dysfunction, and continued diarrhea. She also developed significant neuropathy. However, she did have a significant response to treatment by clinical evaluation and by PET/CT, though with obvious residual disease in both breasts. At her follow-up visit on 10/25/2019 she still had very limited activity, and her treatment remained on hold. Since then she has had significant improvement in her lower extremity edema. She still has limited activity tolerance, but it is definitely improving. She was able to resume Herceptin on 11/01/2019 and has tolerated it well. On November 17, 2019 she underwent bilateral modified radical mastectomy with axillary lymph node biopsy per Dr Pompa ([facility] [place]). The pathology report from November 17, 2019 indicates the left breast and axillary contents had multifocal residual invasive ductal carcinoma grade 2/3; invasive carcinoma invades the dermis and dermal lymphatics and the nipple and adjacent skin; rare foci of ductal carcinoma in situ, solid and cribriform patterns, low nuclear grade; margins free of invasive carcinoma and ductal carcinoma in situ; 6 of 8 axillary lymph nodes positive with metastatic carcinoma. Right breast and axillary contents report focal residual invasive ductal carcinoma, grade 1/3 with extensive fibrosis; residual ductal carcinoma in situ, solid pattern, intermediate nuclear grade; small intraductal papilloma; extensive sclerosing adenosis with numerous microcalcifications; focal fibroadenomatoid change; margins free of invasive carcinoma and ductal carcinoma in situ; 8 of 8 axillary lymph nodes reported with metastatic carcinoma. Pathology reports staging as pT2, pN2a -IIIA. Plan: 1. Proceed with planned 3 week dosing Herceptin today. 2. I will review the pathology from the mastectomies on 11/17/[address] Rascon as she had involvment bilaterally in axillary nodes per path report. 3. Labs from 12/12/2019 were reviewed in detail and discussed with Mrs. Zheng and her family. WBC 4.3, hemoglobin 12.3, platelets 164,000 neutrophils are 2500. Creatinine 1.1 random glucose 92. Potassium 4.1 LFTs are normal. Alk phos is 138. Magnesium 1.9. 4. She may decrease her potassium to 1 tablet daily from 1 twice daily and will recheck a potassium in 3 weeks. 5. She has been encouraged to leave the magnesium the same dosing for now as her level is normal. 6. She is currently scheduled to return in 3 weeks with CBC CMP for consideration of Herceptin. I will call her with the change in plan of care after talking with Dr. Rascon if that is appropriate. She will at least need to start on adjuvant hormonal therapy as well as be referred for radiation therapy. 7. She will need baseline bone density for adjuvant hormonal therapy monitoring and postmenopausal estrogen deficiency. 8. Her last echocardiogram was on 09/21/2019 and reported an overall ejection fraction between 55 and 60%. The right ventricle is moderately enlarged moderate to severe hypokinesis of the ventricle and severe pulmonary hypertension with a pulmonary artery pressure of 66 is also noted that she had moderate to severe tricuspid regurgitation. She is only had 2 doses of Herceptin since that echocardiogram. She had had 4 doses of the Herceptin and 3 doses of Perjeta prior to that echocardiogram. 9. I will plan to call Mrs. Zheng with a new plan of care after discussing her pathology with Dr. Rascon. She is instructed to call us in the interim should questions or problems arise. ADDENDUM: After talking with Dr. Rascon I have requested a prior authorization to add Kadcyla (ado-trastuzumab emtansine) 3.6 mg/kg every 3 weeks for 14 cycles for residual disease post neoadjuvant chemotherapy and bilateral modified radical mastectomy. She will need repeat echocardiogram prior to starting the Kadcyla as it is been almost 3 months since the last one. Mrs. Soni also be started on adjuvant hormonal therapy and be referred to Dr. River for consideration of radiation. Signed By: Moises KatzNAleksandra-, [facility] Tab Rascon MD <<Signature on File>>
== END 2019-12-24 23:59 | disposition home or self-care (01) ==
LOC: ONCMED 05:49
PROVIDERS: Internal Medicine Medical Oncology; PCP Nurse Practitioner Family; Visit Provider Nurse Practitioner
DX: Z51.12 Encounter for antineoplastic immunotherapy (principal); C50.812 Malignant neoplasm of overlapping sites of left female breast; C50.111 Malignant neoplasm of central portion of right female breast; C77.3 Secondary and unspecified malignant neoplasm of axilla and upper limb lymph nodes; Z17.0 Estrogen receptor positive status [ER+]; I10 Essential (primary) hypertension; E03.9 Hypothyroidism, unspecified; F10.20 Alcohol dependence, uncomplicated; Z79.82 Long term (current) use of aspirin; Z79.891 Long term (current) use of opiate analgesic; Z79.899 Other long term (current) drug therapy; Z90.13 Acquired absence of bilateral breasts and nipples; Z87.891 Personal history of nicotine dependence; Z85.42 Personal history of malignant neoplasm of other parts of uterus; Z92.21 Personal history of antineoplastic chemotherapy
CPT/HCPCS: 36415; 80053; 83735; 85025; 96413; 99214; J7050; J9355

== ENCOUNTER 2020-01-24 06:40 | Outpatient (RCR) | payer MEDICARE, OTHER, SELFPAY ==
--- NOTE | 2019-12-28 14:38 | USCV_ITS ---
Bee Zheng Age: 69 Gender: F : 1950 Exam Date: 12/28/2019 14:55 Ordering Phys: Daniella Jones NP Technologist: Warren Ireland Exam Location: [facility] [place] Indication: HIGH RISK MEDS BP: / HR: 77 Rhythm: Sinus Technical Quality: Suboptimal MEASUREMENTS (Male / Female) Normal Values 2D ECHO LV Diastolic Diameter PLAX 3.6 cm 4.2 - 5.9 / 3.9 - 5.3 cm LV Systolic Diameter PLAX 2.3 cm IVS Diastolic Thickness 0.8 cm 0.6 - 1.0 / 0.6 - 0.9 cm IVS Systolic Thickness 1.0 cm LVPW Diastolic Thickness 0.9 cm 0.6 - 1.0 / 0.6 - 0.9 cm LVPW Systolic Thickness 1.1 cm LVOT Diameter 2.2 cm LV Ejection Fraction 2D Teich 68.7 % LV Ejection Fraction MOD 2C 53.8 % LV Ejection Fraction 2C AL 52.8 % LA Diameter 4.0 cm LA Width 3.7 cm LA Height 4.8 cm RA Width 3.2 cm RA Height 4.3 cm Aorta at Sinotubular Diameter 3.1 cm M-MODE LV Diastolic Diameter MM 4.3 cm 4.2 - 5.9 / 3.9 - 5.3 cm LV Systolic Diameter MM 2.4 cm LV Ejection Fraction MM Teich 77.1 % IVS Diastolic Thickness MM 1.0 cm 0.6 - 1.0 / 0.6 - 0.9 cm IVS Systolic Thickness MM 1.6 cm LVPW Diastolic Thickness MM 1.0 cm 0.6 - 1.0 / 0.6 - 0.9 cm LVPW Systolic Thickness MM 1.6 cm RV Diastolic Diameter MM 1.6 cm Aortic Annulus Diameter 3.4 cm LA Ao Ratio MM 1.2 FINDINGS Left Ventricle 2D examination only. The left ventricular size and function is normal. No wall motion disturbances. Ejection fraction 55 to 60%. Diastolic function not evaluated. Right Ventricle Moderately increased right ventricular size. Moderately decreased right ventricular systolic function. Right Atrium Mildly increased right atrial size. Left Atrium Mildly increased left atrial size. Mitral Valve Structurally normal mitral valve. Aortic Valve Structurally normal trileaflet aortic valve. Tricuspid Valve Structurally normal tricuspid valve. Pulmonic Valve Pulmonic valve not well visualized. Pericardium Normal pericardium without effusion. Aorta Normal ascending aorta dimension. CONCLUSIONS 2D examination only. The left ventricular size and function is normal. No wall motion disturbances. Ejection fraction 55 to 60%. Diastolic function not evaluated. Mildly increased left atrial size. Mildly increased right atrial size. Moderately increased right ventricular size. Moderately decreased right ventricular systolic function. From the previous echo dated 09/21/2019, the right heart size has decreased slightly. There is still moderate right ventricular dysfunction. The pulmonary artery is not well seen on this study. The pericardial effusion is resolved. The pulmonary artery pressure was not measured. The left ventricular function is unchanged. Dr. Yoan Harris MD (Electronically Signed) Final Date: 28 December 2019 16:28 S
[2020-01-02 11:18] LABS: Basophils # 0.1 10^3/uL (0.0-0.1); Basophils % 1.7 %; Eosinophils # 0.1 10^3/uL (0.0-0.8); Eosinophils % 2.8 %; Hematocrit 40.1 % (37.0-47.0); Hemoglobin 12.9 g/dL (11.5-15.3); Lymphocytes # 1.1 10^3/uL (0.8-4.8); Lymphocytes % 30.7 %; Mean Corpuscular HGB Conc 32.2 g/dL (30.0-36.0); Mean Corpuscular Hemoglobin 33.2 pg (28.0-34.0); Mean Corpuscular Volume 103.1 fL (81-99); Mean Platelet Volume 11.3 fL (7.4-10.4); Monocytes # 0.4 10^3/uL (0.2-0.9); Monocytes % 11.5 %; Neutrophils # 1.9 10^3/uL (1.8-7.7); Nucleated Red Blood Cells % 0 %; Platelet Count 138 10^3/cmm (130-400); Red Blood Count 3.89 10^6/uL (4.1-5.3); Red Cell Distribution Width 12.7 % (12.1-15.1); White Blood Count 3.6 10^3/uL (4.0-10.0)
[2020-01-02 11:34] LABS: Alanine Aminotransferase 24 U/L (0-33); Albumin Level 3.8 g/dL (3.5-5.2); Alkaline Phosphatase 118 IU/L (35-105); Anion Gap 14.7 (5-19); Aspartate Amino Transferase 31 U/L (0-32); Blood Urea Nitrogen 20 mg/dL (8-23); Calcium 10.2 mg/dL (8.5-10.5); Carbon Dioxide 27 mmol/L (22-29); Chloride 105 mmol/L (98-107); Globulin 2.8 g/dL (1.3-4.6); Glomerular Filtration Rate 71.5 mL/min (90-130); Glucose 82 mg/dL (65-115); Osmolality Calculated 290 mOsm/kg (285-295); Potassium 4.7 mmol/L (3.5-5.1); Sodium 142 mmol/L (136-145); Total Bilirubin 0.5 mg/dL (0.15-1.2); Total Protein 6.6 g/dL (6.6-8.7)
[2020-01-03] MEDS: sodium chloride 0.9% 250 ML 75 ML IV (11:10)
--- NOTE | 2020-01-07 10:44 | ONC FU_ITS ---
Dr. Rascon Patient Follow-Up Note Patient: Bee Zheng Unit #: [id number]: 1950 Dicatated By: Tab Rascon M.D.Date of Visit:Jan 03, 2020 Onc Med Follow-up/Prog Note Chief Complaint: Bilateral breast cancer. History of Present Illness: This is a 69 year-old woman with bilateral invasive breast cancer, both locally advanced. The right breast was grade 1 infiltrating ductal carcinoma, post treatment stage IIA (ypT1c, ypN2a, M0), ER/VT positive and HER-2/bernadine negative. The left breast cancer was grade 3 infiltrating ductal carcinoma, post treatment stage at least IB (ypT2, ypN2a, M0), ER/VT positive and HER-2/bernadine positive. She had presented with gradually worsening swelling and firmness in her breasts after she had sustained a chest injury in a fall about 9 months ago. Bilateral mammograms on 03/23/2019 were BI-RADS 5, highly suggestive of malignancy. Findings included areas of dense asymmetry in the central right breast measuring 3.5 cm and in the central left breast measuring 4.5 by 3.9 cm. The right breast ultrasound showed an irregular hypoechoic mass at 12:00, middle depth, measuring 3.5 x 2.2 cm. Also noted was eccentric thickening of a lymph node in the right axilla. The left breast ultrasound showed a large amount of shadowing within the central breast mass containing calcifications at 12:00, measuring 4.6 x 3.7 cm. There were small benign-appearing lymph nodes on the left. She underwent bilateral ultrasound-guided biopsies on 04/06/2019. The left breast showed grade 3 infiltrating ductal carcinoma with a minor DCIS component. The breast prognostic profile showed ER positive at 87% and VT positive at 72%. There was overexpression of HER-2/bernadine, 3+ by IHC and amplification ratio by FISH of 2.3 with 7.0 HER-2 copies/cell. The Ki-67 was unfavorable at 22%. The right breast showed grade 2 infiltrating ductal carcinoma. A subsequent prognostic profile on the right breast biopsy showed ER positive at 87% and VT positive at 21%. That tumor was negative for overexpression of HER-2/bernadine, 1+ by IHC and amplification ratio by FISH of 1.0 with 2.4 HER-2 copies/cell. Staging PET/CT on 05/07/2019 showed FDG avid right breast lesion measuring 2.1 cm, SUV 13.7, and a solitary hypermetabolic right axillary lymph node with SUV 5.3, consistent with local metastatic disease. Other right axillary lymph nodes were too small to characterize by PET. The left breast showed 2 nearly contiguous lesions, the more dominant measuring 2.5 x 3.8 cm with SUV 8.3. The more inferior and lateral lesion measured 1.3 x 1.5 cm with SUV 11.7. Left axillary lymph nodes were too small to characterize by PET. There were no areas of uptake to suggest any other metastatic disease. A needle biopsy of the right axillary lymph node on 05/19/2019 showed metastatic carcinoma most consistent with breast primary. Given those findings and with HER-2/bernadine positive disease in the left breast, she was recommended to undergo neoadjuvant chemotherapy with TCH-P. On 06/02/2019 she began cycle 1 of neoadjuvant chemotherapy with TCH-P. She tolerated the treatment without acute toxicity. She subsequently developed pretty severe diarrhea, beginning around a 3 or 4. It lasted for 2 weeks. She continued with cycle 2 on 06/28/2019. That treatment was complicated by a pretty severe skin eruption, and she continued to have diarrhea. With cycle 3 on 07/26/2019 I did opt to omit the docetaxel. With had cycle there was no recurrence of skin eruption, but she continued to have severe diarrhea. With cycle 4, on 08/23/2019, I opted to admit the Perjeta and replace the taxane portion of her chemotherapy with Abraxane. On 08/29/2019 she was admitted to the hospital with severe pancytopenia. She continued to have diarrhea and she also developed significant liver dysfunction. She required transfusion of PRBC and platelets. She had uneventful recovery of her white blood cell count, but she continued to have severe thrombocytopenia at discharge, requiring additional outpatient platelet pheresis. I had seen her for a follow-up visit on 09/20/2019. Given the multiple toxicities she had experienced, I opted not to attempt any further chemotherapy. A restaging PET/CT on 09/24/2019 showed primary right breast carcinoma measuring 1.6 cm with SUV 4.6, significantly improved from the prior study. The solitary right axillary lymph node had resolved. The nearly contiguous left breast lesions were reported to have SUV of 3.1, also representing a significant response to therapy. At her follow-up visit on 10/25/2019 she still had very limited activity, and she also continued to have significant lower extremity edema. At that point her treatment remained on hold. Her medical history is otherwise significant in that she had presented in 2014 anemia, severe enough to require transfusion. This was ultimately determined to be due to endometrial cancer, for which she underwent hysterectomy/bilateral salpingo-oophorectomy. Those records are not available at this time. She indicates that there was no lymph node involvement. She apparently did receive postoperative radiation with HDR implant. There has been no evidence of recurrence of the endometrial cancer. Her other medical illnesses include hypertension and hypothyroidism. She has a history of smoking 1-2 packs of cigarettes daily for 50 years. She quit smoking in 2014. She has alcohol use of at least a 6-pack of beer daily. INTERIM HISTORY: At her follow-up visit on 11/01/2019 she had recovered sufficiently to resume treatment with single agent Herceptin at a 3-week dosing schedule. She tolerated it without significant toxicity. On 11/17/2019 she underwent bilateral modified radical mastectomies. Pathology on the left breast showed grade 2 invasive ductal carcinoma, multifocal, with the largest focus measuring 2.8 cm in maximum diameter. There was invasion into the dermis, but without skin ulceration. There was a small component of nuclear grade 1 ductal carcinoma in situ. The margins were negative. There was involvement in 6 of 8 axillary lymph nodes with the largest metastatic deposit measuring 6 mm. Pathologic staging was ypT2, ypN2a. The right breast showed grade 1 invasive ductal carcinoma measuring 1.3 cm in maximum diameter. There was an extensive component of nuclear grade 2 intraductal cancer, estimated at 13 mm. The margins were uninvolved. There was involvement in 8 of 8 axillary lymph nodes with the largest metastatic deposit measuring 5 mm. Pathologic staging was ypT1c, ypN2a. She had no complications with the surgery. She was able to continue with cycle 2 of single agent Herceptin on 11/22/2019. She is seen for a follow-up visit. She has been feeling better generally. She continues to show improvement in her activity tolerance to the point that she is now ambulating pretty well with a walker. She has been able to start doing a little bit of light housework. Her ECOG score is 2. She has good appetite. She has gained weight. She does not have fever, night sweats, or hot flashes. She very seldom has cough. She does not complain of shortness of breath or chest pain. She still occasionally has watery stools. She has no other GI or complaints. She is not having any significant joint or bone pain. She does not complain of headache. She does have some ongoing problems with balance and she still has some numbness/tingling in her toes. Medications: Aspirin 1 Tablet (of 81 mg) Oral daily, Imodium A-D 2 Tablet (of 2 mg) Oral b.i.d. PRN, Lasix 1 Tablet (of 40 mg) Oral daily PRN, Levothyroxine Sodium 1 (112 mcg) Tablet Oral daily, LORazepam 0.5 - 1 Tablet (of 1 mg) Oral t.i.d. PRN, Magnesium 1 Tablet Oral b.i.d., Potassium Chloride ER 1 Tablet (of 10 meq) Tablet, controlled release Oral daily, Prochlorperazine Maleate 1 Tablet (of 10 mg) Oral q 4 hours PRN, traMADol HCl 1 (50 mg) Tablet Oral t.i.d. PRN Allergies: No Known Allergies. Review of Systems: Constitutional - Her energy level is improving. She is walking alot at home with a walker and she is doing a little bit of light house work. She feels like she is improving overall. Her appetite is good and weight is up about 7 pounds from last visit. No fever, chills, hot flashes, or night sweats. ECOG score is 2, ENMT - She sinus drainage. No mouth sores. No sore throat or difficulty swallowing, Hematologic/Lymphatic - She bruises easily, Respiratory - No shortness of breath. Occasional dry cough in the mornings. No pleuritic pain or hemoptysis, Cardiovascular - No angina pain. No palpitations, Gastrointestinal - No nausea or vomiting. No heartburn or acid reflux. No diarrhea or constipation. No blood in the stool or black stools, Genitourinary (F) - No dysuria or hematuria. No urinary frequency. No urgency or incontinence, Musculoskeletal - No joint or bone pain, Integumentary - No skin complications, Neurologic - No headache or dizziness. She has some numbness/tingling in her feet, Psychiatric - No anxiety or depression. No insomnia. Vital Signs: Performed on Jan 03, 2020 12:50 Height - 66.00 in Temperature - 97.4 F (LOW) Pulse - 63 /min Respiration - 18 /min BP - 139/91 mm(hg) O2 Sat - 95 % (LOW) Performed on Jan 03, 2020 09:23 Height - 66.00 in Weight - 178.4 lbs (HIGH) BSA - 1.91 sq.m BMI - 28.79 Temperature - 97.8 F (LOW) Pulse - 76 /min Respiration - 24 /min BP - 112/73 mm(hg) O2 Sat - 97 % Pain - 0 Physical Examination: Constitutional - She looks better generally, Eyes - Sclerae nonicteric. Conjunctivae clear, ENMT - No lesions noted in the oral cavity, Hematologic/Lymphatic - No cervical or clavicular adenopathy, Respiratory - Lungs are clear with good air movement bilaterally, Cardiovascular - Heart is regular. There is no murmur, gallop, or rub noted, Breasts - The chest wall appears well-healed bilaterally. There is no axillary adenopathy noted, Abdomen - Soft. Liver and spleen are not enlarged. There is no abdominal mass or ascites noted and there is no inguinal adenopathy, Extremities - Mild lower extremity edema, Neurologic - No focal neurologic deficits noted. Lab/Imaging: Her CBC shows hemoglobin 12.9 g, white blood cell count 3600, and platelet count 138,000. Comprehensive metabolic profile is unremarkable. Impression: 1. Patient with bilateral invasive breast cancer, both locally advanced. The right breast cancer was grade 1 infiltrating ductal carcinoma, post treatment stage IIA (ypT1c, ypN2a, M0), ER/VT positive and HER-2/bernadine negative. The left breast cancer was grade 3 infiltrating ductal carcinoma, post treatment stage at least IB (ypT2, ypN2a, M0), ER/VT positive and HER-2/bernadine positive. 2. She underwent bilateral ultrasound directed breast biopsies on 04/06/2019, and she underwent ultrasound directed needle biopsy of a right axillary lymph node on 05/19/2019. 3. She was given neoadjuvant chemotherapy with TCH-P, cycle 1 beginning on 06/02/2019. She experienced multiple toxicities including diarrhea and neuropathy, severe enough to require modifications in her treatment. The chemotherapy was stopped after 4 cycles due to toxicity. 4. As of 11/01/2019 she resumed treatment with single agent Herceptin at a 3-week dosing interval. 5. On 11/17/2019 she underwent bilateral modified radical mastectomies. Her other medical illnesses include: 6. Hypertension. 7. Hypothyroidism. 8. She has a history of endometrial cancer for which she underwent hysterectomy/bilateral salpingo-oophorectomy and postoperative HDR implant radiation in 2014. On 11/22/2019 she continued with cycle 2 of single agent Herceptin. She tolerated it well. She has continued to show gradual recovery from the chemotherapy-related toxicities. She has had further improvement in her performance status, though at this point she still has fairly limited activity. Plan: She will continue her adjuvant therapy. With residual axillary node involvement following her neoadjuvant chemotherapy, she will now begin treatment with Kadcyla as opposed to single agent Herceptin. She also will now begin adjuvant hormonal therapy with anastrozole 1 mg daily. She will need to see the radiation oncologist for chest wall radiation. She will be scheduled for a follow-up visit in 3 weeks. Signed By: Tab Rascon M.D. <<Signature on File>>
--- NOTE | 2020-01-11 13:26 | N.ONRAD NP_ITS ---
Radiation Oncology New Patient Visit Patient: Bee Zheng MR#: [id number] : 1950> Age: 69> Sex: Female> Dictated by: Dr. Miguel Casanova Date of Service: 01/11/2020 Referring Physician(s) : Dr. Vern Pompa Diagnosis: C50.812 - malignant neoplasm of overlapping sites of left female breast, Diagnosed 01/03/2020 (active), stage ib, t2, pn2a, m0, g2, her2 pos, er pos, pr p, C50.811 - malignant neoplasm of overlapping sites of right female breast, Diagnosed 01/03/2020 (active), stage ib, t1c, pn2a, m0, g1, her2 neg, er pos, pr and Z17.0 - estrogen receptor positive status [er+], Diagnosed 06/23/2019 (active). Radiotherapy to date: Summary > No prior radiation therapy. Chief Complaint / History of Present Illness: Bee Zheng is a 69-year-old lady who has bilateral breast cancer. She presented with swelling and firmness in both breasts. She underwent bilateral mammography 03/23/2019 and both breast had areas suspicious for malignancy. Ultrasound guided biopsies on 04/06/2019 confirmed invasive ductal carcinoma in both breasts. Both cancers were ER and VA positive. The cancer on the left was HER-2 positive. The cancer on the right was HER-2 negative. The patient staging PET scan showed regional disease in the lymph node as well as the disease in the breasts. No metastatic disease seen. She had a needle biopsy of a right axillary node that was positive for metastatic cancer. Systemic therapy was initiated with TCH-P. She tolerated treatment poorly and she required alterations in her regimen. She was hospitalized in August. After that hospitalization it was decided not to pursue further chemotherapy. PET/CT showed good response to treatment but there appeared to be residual disease. She underwent bilateral mastectomies on 11/17/2019. The left breast contained a 28 mm central focus of cancer as well as smaller tumor foci measuring from 3 to 17 mm. She also had intraductal carcinoma identified. Cancer invaded the dermis without skin ulceration. Margins were widely negative. 6 of 8 axillary nodes contained micrometastases with focal extranodal extension. The largest metastatic deposit was 6 mm. Lymphovascular invasion was present and dermal lymphovascular invasion was present. The right breast had a 13 mm residual cancer. Extensive intraductal disease was noted. Margins were widely negative. 8 of 8 lymph nodes were involved with macro metastases with focal extranodal extension. The largest metastatic deposit deposit was 5 mm. No lymphovascular invasion was identified. BRIAN has mild soreness in the areas of her mastectomies but otherwise she feels that she has been healing very well. She is referred for postoperative radiation. Current Medications: Anastrozole, aspirin, dexamethasone, gabapentin, imodium A-D, kadcyla, lasix, lasix, levothyroxine Sodium, lORazepam, lORazepam, magnesium, magnesium Oxide, potassium Chloride ER, potassium Chloride ER, prochlorperazine Maleate, prochlorperazine Maleate, traMADol HCl. Allergies: No Known Allergies Medical History: - Anemia, - diverticulosis, - history of uterine cancer, - hypertension, - hypothyroidism. No history of collagen vascular disease. No previous radiation therapy. Surgical History: Hernia repair, hysterectomy/bilateral salpingo-oophorectomy in 2014, We do not have the details regarding her hysterectomy. She apparently had cancer, probably cancer of the uterus. She describes having 3 sessions of brachii therapy once weekly at [facility]. As noted above, her memory of the specific treatments is very poor. mastectomy on 11/17/2019 (double mastectomy) and tubal ligation. Family History: Father is at age 80 having experienced congestive heart failure. Mother is at age 84 having experienced cancer of unknown primary. Brother is . Brother is . Brother is . Sister is having experienced breast cancer. Sister is alive. Sister is alive. Sister is . Father during surgery for cerebral aneurysm. Mother had lung cancer and breast cancer, and a sister has been treated for breast cancer. A sister of stroke associated with cerebral aneurysm. She had 3 brothers, all of whom also are . Social History: Last screened on 01/11/2020 - Yes - but has quit for 4 years. Smoked 1.5 packs/day for 50 years (75 pack years). Last screened on 01/11/2020 - Active drinker 6 drinks/day 7 days/week. Current Complaints / Review of Systems: . Vital Signs: Physical Exam: Alert, oriented, no distress. Her memory of distant past events seems poor. She seems to remember very little about the brachii therapy that she received at [facility] in [place] a few years ago. Her performance status appears to be good. She has no cervical, supraclavicular, or axillary lymphadenopathy. Lungs clear to percussion. On auscultation no rales rhonchi or wheezes. Heart rhythm regular. No murmur gallop or rub. Chest wall exam reveals bilateral mastectomy scars. They are well-healed. There is no evidence of a seroma or hematoma. There is no fluid in either axilla. No lesions on the chest wall to suggest early recurrence. No subcutaneous masses involving the chest wall. Abdomen no distention. No organomegaly or mass or tenderness. Musculoskeletal she has an excellent range of motion in both shoulders. No bone tenderness. Normal gait. Performance Status: 1 - No physically strenuous activity, but ambulatory and able to carry out light or sedentary work (e.g. office work, light house work). (ECOG) Pathology: Primary, c50.812 - malignant neoplasm of overlapping sites of left female breast, Diagnosed 01/03/2020 (active) stage ib, t2, pn2a, m0, g2, her2 pos, er pos, pr p, Primary, c50.811 - malignant neoplasm of overlapping sites of right female breast, Diagnosed 01/03/2020 (active) stage ib, t1c, pn2a, m0, g1, her2 neg, er pos, pr, Primary, z17.0 - estrogen receptor positive status [er+], Diagnosed 06/23/2019 (active) and Secondary, z85.42 - personal history of malignant neoplasm of other parts of uterus, Diagnosed 05/05/2019 (active). Lab: Test performed on 10/25/2019 11:30 AM NT proBNP - 5134 pg/ml (high), T4, Free - 1.92 ng/dl (high), Test performed on 12/12/2019 1:50 PM RBC - 3.79 10 6/ul (low), MCV - 101.6 fl (high), MPV - 10.9 fl (high), Creatinine - 1.1 mg/dl (high), Cr Clearance (Est) - 62.6900 ml/min (low), eGFR - 49.5 ml/min (low), AST (SGOT) - 33 u/l (high) and Alkaline Phosphatase - 138 iu/l (high). Imaging: See HPI Impression: Ms. Zheng has locally advanced bilateral breast cancer. She is a candidate for treatment to both chest evrdin and regional nodes because of the degree of axillary lymphadenopathy present on both sides. She will need an IMRT plan because of the need to treat the internal mammary nodes. I discussed a typical course of postoperative radiation with her. I told her that she would probably have around 6 weeks of treatment. She told me that she was only planning on having about 5 weeks of radiation. I did not get into an argument or a discussion about that. I told her we normally give a longer course of treatment than 5 weeks. I reviewed side effects and possible complications. I told her of the heart and lungs will receive some radiation and long-term problems, though possible, are not anticipated. I encouraged her to maintain the good range of motion she has in both shoulders. I discussed lymphedema as well as the possibility of needing physical therapy for loss of range of motion. I discussed the skin reaction that may occur. She wishes to proceed with treatment as recommended. Plan: Schedule Simulation. Signed by: 01/11/2020 1:25:10 PM <<Signature on File>> Time spent with patient: CPT Code: CPT Code:
--- NOTE | 2020-01-16 | CT_ITS ---
Radiation Therapy Planning CT images; total exam DLP: 597.63 mGy-cm MTDD
[2020-01-23 18:18] LABS: Alanine Aminotransferase 23 U/L (0-33); Albumin Level 3.8 g/dL (3.5-5.2); Alkaline Phosphatase 145 IU/L (35-105); Anion Gap 15.5 (5-19); Aspartate Amino Transferase 36 U/L (0-32); Blood Urea Nitrogen 15 mg/dL (8-23); Calcium 10.1 mg/dL (8.5-10.5); Carbon Dioxide 26 mmol/L (22-29); Chloride 101 mmol/L (98-107); Globulin 2.7 g/dL (1.3-4.6); Glomerular Filtration Rate 71.5 mL/min (90-130); Glucose 121 mg/dL (65-115); Osmolality Calculated 286 mOsm/kg (285-295); Potassium 3.5 mmol/L (3.5-5.1); Sodium 139 mmol/L (136-145); Total Bilirubin 0.5 mg/dL (0.15-1.2); Total Protein 6.5 g/dL (6.6-8.7)
[2020-01-23 18:27] LABS: Basophils # 0.1 10^3/uL (0.0-0.1); Basophils % 1.8 %; Eosinophils # 0.1 10^3/uL (0.0-0.8); Eosinophils % 2.3 %; Hematocrit 41.3 % (37.0-47.0); Hemoglobin 13.1 g/dL (11.5-15.3); Lymphocytes # 1.4 10^3/uL (0.8-4.8); Lymphocytes % 35.6 %; Mean Corpuscular HGB Conc 31.7 g/dL (30.0-36.0); Mean Corpuscular Hemoglobin 31.7 pg (28.0-34.0); Mean Platelet Volume 11.4 fL (7.4-10.4); Monocytes # 0.4 10^3/uL (0.2-0.9); Monocytes % 10.5 %; Neutrophils % 49.5 %; Nucleated Red Blood Cells % 0 %; Platelet Count 96 10^3/cmm (130-400); Red Blood Count 4.13 10^6/uL (4.1-5.3); Red Cell Distribution Width 13.2 % (12.1-15.1)
[2020-01-23 19:10] LABS: Slide Review Slide Review Perform
--- NOTE | 2020-01-26 10:01 | ONC FU_ITS ---
Dr. Rascon Patient Follow-Up Note Patient: Bee Zheng Unit #: [id number]: 1950 Dicatated By: Tab Rascon M.D.Date of Visit:Jan 24, 2020 Onc Med Follow-up/Prog Note Chief Complaint: Bilateral breast cancer. History of Present Illness: This is a 69 year-old woman with bilateral invasive breast cancer, both locally advanced. The right breast was grade 1 infiltrating ductal carcinoma, post treatment stage IIA (ypT1c, ypN2a, M0), ER/DC positive and HER-2/bernadine negative. The left breast cancer was grade 3 infiltrating ductal carcinoma, post treatment stage at least IB (ypT2, ypN2a, M0), ER/DC positive and HER-2/bernadine positive. She had presented with gradually worsening swelling and firmness in her breasts after she had sustained a chest injury in a fall about 9 months ago. Bilateral mammograms on 03/23/2019 were BI-RADS 5, highly suggestive of malignancy. Findings included areas of dense asymmetry in the central right breast measuring 3.5 cm and in the central left breast measuring 4.5 by 3.9 cm. The right breast ultrasound showed an irregular hypoechoic mass at 12:00, middle depth, measuring 3.5 x 2.2 cm. Also noted was eccentric thickening of a lymph node in the right axilla. The left breast ultrasound showed a large amount of shadowing within the central breast mass containing calcifications at 12:00, measuring 4.6 x 3.7 cm. There were small benign-appearing lymph nodes on the left. She underwent bilateral ultrasound-guided biopsies on 04/06/2019. The left breast showed grade 3 infiltrating ductal carcinoma with a minor DCIS component. The breast prognostic profile showed ER positive at 87% and DC positive at 72%. There was overexpression of HER-2/bernadine, 3+ by IHC and amplification ratio by FISH of 2.3 with 7.0 HER-2 copies/cell. The Ki-67 was unfavorable at 22%. The right breast showed grade 2 infiltrating ductal carcinoma. A subsequent prognostic profile on the right breast biopsy showed ER positive at 87% and DC positive at 21%. That tumor was negative for overexpression of HER-2/bernadine, 1+ by IHC and amplification ratio by FISH of 1.0 with 2.4 HER-2 copies/cell. Staging PET/CT on 05/07/2019 showed FDG avid right breast lesion measuring 2.1 cm, SUV 13.7, and a solitary hypermetabolic right axillary lymph node with SUV 5.3, consistent with local metastatic disease. Other right axillary lymph nodes were too small to characterize by PET. The left breast showed 2 nearly contiguous lesions, the more dominant measuring 2.5 x 3.8 cm with SUV 8.3. The more inferior and lateral lesion measured 1.3 x 1.5 cm with SUV 11.7. Left axillary lymph nodes were too small to characterize by PET. There were no areas of uptake to suggest any other metastatic disease. A needle biopsy of the right axillary lymph node on 05/19/2019 showed metastatic carcinoma most consistent with breast primary. Given those findings and with HER-2/bernadine positive disease in the left breast, she was recommended to undergo neoadjuvant chemotherapy with TCH-P. On 06/02/2019 she began cycle 1 of neoadjuvant chemotherapy with TCH-P. She tolerated the treatment without acute toxicity. She subsequently developed pretty severe diarrhea, beginning around a 3 or 4. It lasted for 2 weeks. She continued with cycle 2 on 06/28/2019. That treatment was complicated by a pretty severe skin eruption, and she continued to have diarrhea. With cycle 3 on 07/26/2019 I did opt to omit the docetaxel. With had cycle there was no recurrence of skin eruption, but she continued to have severe diarrhea. With cycle 4, on 08/23/2019, I opted to admit the Perjeta and replace the taxane portion of her chemotherapy with Abraxane. On 08/29/2019 she was admitted to the hospital with severe pancytopenia. She continued to have diarrhea and she also developed significant liver dysfunction. She required transfusion of PRBC and platelets. She had uneventful recovery of her white blood cell count, but she continued to have severe thrombocytopenia at discharge, requiring additional outpatient platelet pheresis. I had seen her for a follow-up visit on 09/20/2019. Given the multiple toxicities she had experienced, I opted not to attempt any further chemotherapy. A restaging PET/CT on 09/24/2019 showed primary right breast carcinoma measuring 1.6 cm with SUV 4.6, significantly improved from the prior study. The solitary right axillary lymph node had resolved. The nearly contiguous left breast lesions were reported to have SUV of 3.1, also representing a significant response to therapy. At her follow-up visit on 10/25/2019 she still had very limited activity, and she also continued to have significant lower extremity edema. At that point her treatment remained on hold. Her medical history is otherwise significant in that she had presented in 2014 anemia, severe enough to require transfusion. This was ultimately determined to be due to endometrial cancer, for which she underwent hysterectomy/bilateral salpingo-oophorectomy. Those records are not available at this time. She indicates that there was no lymph node involvement. She apparently did receive postoperative radiation with HDR implant. There has been no evidence of recurrence of the endometrial cancer. Her other medical illnesses include hypertension and hypothyroidism. She has a history of smoking 1-2 packs of cigarettes daily for 50 years. She quit smoking in 2014. She has alcohol use of at least a 6-pack of beer daily. INTERIM HISTORY: At her follow-up visit on 11/01/2019 she had recovered sufficiently to resume treatment with single agent Herceptin at a 3-week dosing schedule. She tolerated it without significant toxicity. On 11/17/2019 she underwent bilateral modified radical mastectomies. Pathology on the left breast showed grade 2 invasive ductal carcinoma, multifocal, with the largest focus measuring 2.8 cm in maximum diameter. There was invasion into the dermis, but without skin ulceration. There was a small component of nuclear grade 1 ductal carcinoma in situ. The margins were negative. There was involvement in 6 of 8 axillary lymph nodes with the largest metastatic deposit measuring 6 mm. Pathologic staging was ypT2, ypN2a. The right breast showed grade 1 invasive ductal carcinoma measuring 1.3 cm in maximum diameter. There was an extensive component of nuclear grade 2 intraductal cancer, estimated at 13 mm. The margins were uninvolved. There was involvement in 8 of 8 axillary lymph nodes with the largest metastatic deposit measuring 5 mm. Pathologic staging was ypT1c, ypN2a. She had no complications with the surgery. She was able to continue single agent Herceptin at the 3- week dosing schedue. As of 12/13/2019 she had received her 3rd cycle. During that time she did show gradual improvement in her neuropathy and performance status. As of her visit on 01/03/2020 I opted to change her systemic therapy to Kadcyla at 3.6 mg/kg by IV infusion. At that time, she also began adjuvant hormonal therapy with anastrozole 1 mg daily. She is seen for a follow-up visit. She has been feeling good generally. She is not aware of having any adverse effects from the Kadcyla infusion 3 weeks ago. She still has some weakness in her legs, but her energy/activity tolerance continues to improve. Her ECOG score is 1. She has good appetite. Her weight is up 5 pounds. She has not had fever. She has had a little bit of hot feeling since starting anastrozole. She is not having actual hot flashes or night sweating. She occasionally has a dry cough. She has no shortness of breath or chest pain. She still has occasional nausea. She has no other GI or complaints. She has no significant joint or bone pain. She has occasional spells of dizziness. Her legs are weak, but improving, as noted. She still has some numbness/tingling in her hands and feet. Medications: Aleve 1 Tablet (of 220 mg) Oral PRN, Aspirin 1 Tablet (of 81 mg) Oral daily, Imodium A-D 2 Tablet (of 2 mg) Oral b.i.d. PRN, Lasix 1 Tablet (of 40 mg) Oral daily PRN, Levothyroxine Sodium 1 (112 mcg) Tablet Oral daily, LORazepam 0.5 - 1 Tablet (of 1 mg) Oral t.i.d. PRN, Magnesium 1 Tablet Oral b.i.d., Potassium Chloride ER 1 Tablet (of 10 meq) Tablet, controlled release Oral daily, Prochlorperazine Maleate 1 Tablet (of 10 mg) Oral q 4 hours PRN, traMADol HCl 1 (50 mg) Tablet Oral t.i.d. PRN Allergies: No Known Allergies. Review of Systems: Constitutional - Her energy level is good. She is able to do house work. Appetite is good and weight is stable. No fever or chills. She is having mild hot flashes. No night sweats. ECOG score is 1, ENMT - No sinus congestion/drainage. No mouth sores. No sore throat or difficulty swallowing, Hematologic/Lymphatic - No abnormal bruising or bleeding, Respiratory - No shortness of breath. She has an occasional dry cough. No pleuritic pain or hemoptysis, Cardiovascular - No angina pain. No palpitations, Gastrointestinal - No nausea or vomiting. No heartburn or acid reflux. No diarrhea or constipation. No blood in the stool or black stools, Genitourinary (F) - No dysuria or hematuria. No urinary frequency. No urgency or incontinence, Musculoskeletal - No joint or bone pain, Integumentary - She had a recent tick bite on her left lower back, Neurologic - No headache or dizziness. She has some numbness and tingling in her hands and feet, Psychiatric - No anxiety or depression. No insomnia. Vital Signs: Performed on Jan 24, 2020 14:00 Height - 66.00 in Weight - 178.8 lbs (LOW) BSA - 1.91 sq.m BMI - 28.86 Temperature - 98.7 F Pulse - 81 /min Respiration - 24 /min BP - 120/75 mm(hg) O2 Sat - 94 % (LOW) Pain - 0 Physical Examination: Constitutional - She looks pretty good generally, Eyes - Sclerae nonicteric. Conjunctivae clear, ENMT - No lesions noted in the oral cavity, Hematologic/Lymphatic - No cervical or clavicular adenopathy, Respiratory - Lungs are clear with good air movement bilaterally, Cardiovascular - Heart is regular. There is no murmur, gallop, or rub noted, Abdomen - Soft. Liver and spleen are not enlarged. There is no abdominal mass or ascites noted and there is no inguinal adenopathy, Extremities - Slight edema, Neurologic - No focal neurologic deficits noted. Lab/Imaging: CBC shows hemoglobin 13.1 g, white blood cell count 4000, and platelet count 96,000. Comprehensive metabolic profile is unremarkable except for slight elevation of the alkaline phosphatase of 145/105 IU/L and slightly elevated SGOT at 36/32 U/L. Impression: 1. Patient with bilateral invasive breast cancer, both locally advanced. The right breast cancer was grade 1 infiltrating ductal carcinoma, post treatment stage IIA (ypT1c, ypN2a, M0), ER/DC positive and HER-2/bernadine negative. The left breast cancer was grade 3 infiltrating ductal carcinoma, post treatment stage at least IB (ypT2, ypN2a, M0), ER/DC positive and HER-2/bernadine positive. 2. She underwent bilateral ultrasound directed breast biopsies on 04/06/2019, and she underwent ultrasound directed needle biopsy of a right axillary lymph node on 05/19/2019. 3. She was given neoadjuvant chemotherapy with TCH-P, cycle 1 beginning on 06/02/2019. She experienced multiple toxicities including diarrhea and neuropathy, severe enough to require modifications in her treatment. The chemotherapy was stopped after 4 cycles due to toxicity. 4. As of 11/01/2019 she resumed treatment with single agent Herceptin at a 3-week dosing interval. 5. On 11/17/2019 she underwent bilateral modified radical mastectomies. Her other medical illnesses include: 6. Hypertension. 7. Hypothyroidism. 8. She has a history of endometrial cancer for which she underwent hysterectomy/bilateral salpingo-oophorectomy and postoperative HDR implant radiation in 2014. On 11/22/2019 she continued with cycle 2 of single agent Herceptin. She tolerated it well. She has had very gradual recovery from the chemotherapy-related toxicities. She continues to show improvement in her leg weakness and performance status. As of 01/03/2020 her systemic adjuvant therapy was changed from single agent Herceptin to Kadcyla at 3.6 mg/kg by IV infusion every 3 weeks. At that time she also started adjuvant hormonal therapy with anastrozole 1 mg daily. She has tolerated her initial infusion of Kadcyla with no adverse effects, and thus far she also appears to be tolerating the anastrozole very well. She also has been seen by the radiation oncologist for prophylactic chest wall radiation. Plan: She will proceed cycle 2 of Kadcyla. The dosage remains the same. She also continues adjuvant hormonal therapy with anastrozole 1 mg daily. She will need to see the radiation oncologist for chest wall radiation. She will be scheduled for a follow-up visit in 3 weeks. Signed By: Tab Rascon M.D. <<Signature on File>>
== END 2020-01-24 23:59 | disposition home or self-care (01) ==
LOC: ONCMED 06:40
PROVIDERS: Nurse Practitioner; Specialist; PCP Nurse Practitioner Family; Visit Provider Internal Medicine Medical Oncology
DX: Z51.12 Encounter for antineoplastic immunotherapy (principal); C50.811 Malignant neoplasm of overlapping sites of right female breast; C50.812 Malignant neoplasm of overlapping sites of left female breast; C77.3 Secondary and unspecified malignant neoplasm of axilla and upper limb lymph nodes; Z17.0 Estrogen receptor positive status [ER+]; I10 Essential (primary) hypertension; E03.9 Hypothyroidism, unspecified; F10.20 Alcohol dependence, uncomplicated; Z79.82 Long term (current) use of aspirin; Z79.899 Other long term (current) drug therapy; Z79.811 Long term (current) use of aromatase inhibitors; Z85.42 Personal history of malignant neoplasm of other parts of uterus; Z92.3 Personal history of irradiation; Z87.891 Personal history of nicotine dependence; Z90.13 Acquired absence of bilateral breasts and nipples; Z90.710 Acquired absence of both cervix and uterus
CPT/HCPCS: 36415; 77300; 77301; 77338; 80053; 85025; 93308; 96413; 99204; 99214; J7050; J9354

== ENCOUNTER 2020-02-23 06:52 | Outpatient (RCR) | payer MEDICARE, OTHER, SELFPAY ==
--- NOTE | 2020-01-31 15:52 | ONCRAD TMN_ITS ---
Radiation Oncology Weekly Treatment Management Patient: Bee Zheng MR#: [id number] : 1950 Age: 69 Sex: Female Dictated by: Dr. Norman Sierra Date of Service: 01/31/2020 Referring Physician(s) : Dr. Vern Pompa Primary Diagnosis: C50.812 - Malignant neoplasm of overlapping sites of left female breast, Diagnosed 01/03/2020 (Active) Stage IB, T2, pN2a, M0, G2, HER2 Pos, ER Pos, CO P C50.811 - Malignant neoplasm of overlapping sites of right female breast, Diagnosed 01/03/2020 (Active) Stage IB, T1c, pN2a, M0, G1, HER2 Neg, ER Pos, CO Z17.0 - Estrogen receptor positive status [ER+], Diagnosed 06/23/2019 (Active) Radiotherapy to date: Course: Chest 2019, Treatment Site: [id number], Ref. ID: Chest A, Energy: 6X, Dose/Fx (cGy): 180, #Fx: , Dose Correction (cGy): 0, Total Dose (cGy): 720, Start Date: 01/25/2020, Elapsed Days: 6 Course: Chest 2019, Treatment Site: [id number], Ref. ID: Chest B, Energy: 6X, Dose/Fx (cGy): 180, #Fx: , Dose Correction (cGy): 0, Total Dose (cGy): 720, Start Date: 01/25/2020, Elapsed Days: 6 Course: Chest 2019, Treatment Site: [id number], Ref. ID: Chest C, Energy: 6X, Dose/Fx (cGy): 180, #Fx: , Dose Correction (cGy): 0, Total Dose (cGy): 720, Start Date: 01/25/2020, Elapsed Days: 5 Current Complaints/Interval History: Current Medications: Aleve, anastrozole, aspirin, dexamethasone, gabapentin, imodium A-D, kadcyla, lasix, lasix, levothyroxine Sodium, lORazepam, lORazepam, magnesium, magnesium Oxide, potassium Chloride ER, potassium Chloride ER, prochlorperazine Maleate, prochlorperazine Maleate, traMADol HCl. Allergies: No Known Allergies Vital Signs: Performed on 01/31/2020 1:54 PM BMI - 28.795 kg/m2 (high), Height - 66.00 in, Weight - 178.4 lbs, Temperature - 98.2 f, Pulse - 86, Respiration - 18, O2 Sat - 94 % (low), Pain - 0 and BP - 100/ 70 mm(hg). Physical Exam: Appears stable, no skin erythema or desquamation. Performance Status: 1 - No physically strenuous activity, but ambulatory and able to carry out light or sedentary work (e.g. office work, light house work). (ECOG) Lab: None pending in Radiation Oncology. Imaging: No new diagnostic imaging was performed since the last weekly treatment visit. All radiation therapy related imaging (including but not limited to kV, MV, and CBCT generated images) was reviewed. Appropriate changes, if any, were made to assure accurate target localization. Impression/Plan: Tolerating treatment well with expected side effects. Continue treatment as planned. CPT: 43565 Signed by: Dr. Norman Sierra>01/31/2020 3:51:32 PM <<Signature on File>>
--- NOTE | 2020-02-07 15:38 | ONCRAD TMN_ITS ---
Radiation Oncology Weekly Treatment Management Patient: Bee Zheng MR#: [id number] : 1950> Age: 69> Sex: Female Dictated by: Dr. Norman Sierra Date of Service: 02/07/2020 Referring Physician(s) : Dr. Vern Pompa Primary Diagnosis: C50.812 - Malignant neoplasm of overlapping sites of left female breast, Diagnosed 01/03/2020 (Active) Stage IB, T2, pN2a, M0, G2, HER2 Pos, ER Pos, ME P C50.811 - Malignant neoplasm of overlapping sites of right female breast, Diagnosed 01/03/2020 (Active) Stage IB, T1c, pN2a, M0, G1, HER2 Neg, ER Pos, ME Z17.0 - Estrogen receptor positive status [ER+], Diagnosed 06/23/2019 (Active) Radiotherapy to date: Course: 2019 Treatment Site: [id number], Ref. ID: Chest A, Energy: 6X, Dose/Fx (cGy): 180, #Fx: , Dose Correction (cGy): 0, Total Dose (cGy): 1,620, Start Date: 01/25/2020, Elapsed Days: 13 Treatment Site: [id number], Ref. ID: Chest B, Energy: 6X, Dose/Fx (cGy): 180, #Fx: , , Total Dose (cGy): 1,620, Start Date: 01/25/2020, Elapsed Days: 13 Treatment Site: [id number], Ref. ID: Chest C, Energy: 6X, Dose/Fx (cGy): 180, #Fx: , Dose Correction (cGy): 0, Total Dose (cGy): 1,620, Start Date: 01/25/2020, Elapsed Days: 13 Current Complaints/Interval History: Constitutional Complains of mild fatigue. Denies lack of appetite, fever and night sweats. ENMT Complains of dysphagia which just recently started. Integumentary Has no redness to the chest wall Breasts Has no chest wall pain Cardiovascular Denies chest pain. Respiratory Complains of cough which is dry and happens occasionally. Denies dyspnea and wheezing. Current Medications: Aleve, anastrozole, aspirin, dexamethasone, gabapentin, imodium A-D, kadcyla, lasix, lasix, levothyroxine Sodium, lORazepam, lORazepam, magnesium, magnesium Oxide, potassium Chloride ER, potassium Chloride ER, prochlorperazine Maleate, prochlorperazine Maleate, traMADol HCl. Allergies: No Known Allergies Vital Signs: Performed on 02/07/2020 2:30 PM BMI - 28.407 kg/m2 (high), Height - 66.00 in, Weight - 176.0 lbs, Temperature - 98.7 f, Pulse - 90, Respiration - 20, O2 Sat - 97 %, Pain - 0 and BP - 98/ 62 mm(hg)(/low). Physical Exam: Appears stable, no skin erythema or desquamation. Performance Status: 1 - No physically strenuous activity, but ambulatory and able to carry out light or sedentary work (e.g. office work, light house work). (ECOG) Lab: None pending in Radiation Oncology. Test performed on 10/25/2019 11:30 AM NT proBNP - 5134 pg/ml (high), T4, Free - 1.92 ng/dl (high), Test performed on 12/12/2019 1:50 PM RBC - 3.79 10 6/ul (low), MCV - 101.6 fl (high), MPV - 10.9 fl (high), Creatinine - 1.1 mg/dl (high), Cr Clearance (Est) - 62.6900 ml/min (low), eGFR - 49.5 ml/min (low), AST (SGOT) - 33 u/l (high) and Alkaline Phosphatase - 138 iu/l (high). Imaging: No new diagnostic imaging was performed since the last weekly treatment visit. All radiation therapy related imaging (including but not limited to kV, MV, and CBCT generated images) was reviewed. Appropriate changes, if any, were made to assure accurate target localization. Impression/Plan: Tolerating treatment well with expected side effects. Continue treatment as planned. CPT: 22613 Signed by: Dr. Norman Sierra>02/07/2020 3:37:47 PM <<Signature on File>>
[2020-02-14 13:32] LABS: Basophils % 1.6 %; Eosinophils # 0.1 10^3/uL (0.0-0.8); Lymphocytes # 0.6 10^3/uL (0.8-4.8); Lymphocytes % 25.5 %; Mean Corpuscular HGB Conc 32.6 g/dL (30.0-36.0); Mean Corpuscular Hemoglobin 32.4 pg (28.0-34.0); Mean Corpuscular Volume 99.5 fL (81-99); Mean Platelet Volume 11.2 fL (7.4-10.4); Monocytes # 0.3 10^3/uL (0.2-0.9); Monocytes % 10.8 %; Neutrophils # 1.5 10^3/uL (1.8-7.7); Neutrophils % 59.7 %; Nucleated Red Blood Cells % 0 %; Platelet Count 57 10^3/cmm (130-400); Red Blood Count 4.32 10^6/uL (4.1-5.3); Red Cell Distribution Width 14.1 % (12.1-15.1); White Blood Count 2.5 10^3/uL (4.0-10.0)
[2020-02-14 13:45] LABS: Alanine Aminotransferase 28 U/L (0-33); Albumin Level 4.1 g/dL (3.5-5.2); Alkaline Phosphatase 117 IU/L (35-105); Anion Gap 15.5 (5-19); Aspartate Amino Transferase 49 U/L (0-32); Blood Urea Nitrogen 18 mg/dL (8-23); Carbon Dioxide 31 mmol/L (22-29); Chloride 99 mmol/L (98-107); Globulin 3.7 g/dL (1.3-4.6); Glomerular Filtration Rate 62.5 mL/min (90-130); Glucose 103 mg/dL (65-115); Osmolality Calculated 291 mOsm/kg (285-295); Potassium 3.5 mmol/L (3.5-5.1); Sodium 142 mmol/L (136-145); Total Bilirubin 1.1 mg/dL (0.15-1.2); Total Protein 7.8 g/dL (6.6-8.7)
--- NOTE | 2020-02-15 17:06 | ONCRAD TMN_ITS ---
Radiation Oncology Weekly Treatment Management Patient: Bee Zheng MR#: [id number] : 1950> Age: 69> Sex: Female Dictated by: Dr. Randolph Goins Date of Service: 02/15/2020 Referring Physician(s) : Dr. Vern Pompa Primary Diagnosis: C50.812 - Malignant neoplasm of overlapping sites of left female breast, Diagnosed 01/03/2020 (Active) Stage IB, T2, pN2a, M0, G2, HER2 Pos, ER Pos, DE P C50.811 - Malignant neoplasm of overlapping sites of right female breast, Diagnosed 01/03/2020 (Active) Stage IB, T1c, pN2a, M0, G1, HER2 Neg, ER Pos, DE Z17.0 - Estrogen receptor positive status [ER+], Diagnosed 06/23/2019 (Active) Radiotherapy to date: Course: Chest 2019, Treatment Site: [id number], Ref. ID: Chest A, Energy: 6X, Dose/Fx (cGy): 180, #Fx: , Dose Correction (cGy): 0, Total Dose (cGy): 2,520, Start Date: 01/25/2020, Elapsed Days: 21 Treatment Site: [id number], Ref. ID: Chest B, Energy: 6X, Dose/Fx (cGy): 180, #Fx: , Dose Correction (cGy): 0, Total Dose (cGy): 2,520, Start Date: 01/25/2020, Elapsed Days: 21 Treatment Site: [id number], Ref. ID: Chest C, Energy: 6X, Dose/Fx (cGy): 180, #Fx: , Dose Correction (cGy): 0, Total Dose (cGy): 2,520, Start Date: 01/25/2020, Elapsed Days: 21 Current Complaints/Interval History: Boyfriend of 20 year suddenly over the weekend. Using Auquaphor topically. PE minimal chest wall tanning. Constitutional Complains of mild fatigue. Denies lack of appetite, fever and night sweats. ENMT Denies dysphagia. Integumentary Has slight redness to the chest wall Breasts Has no chest wall pain Cardiovascular Denies chest pain. Respiratory Denies cough, dyspnea and wheezing. Current Medications: Aleve, anastrozole, aspirin, dexamethasone, gabapentin, imodium A-D, kadcyla, lasix, lasix, levothyroxine Sodium, lORazepam, lORazepam, magnesium, magnesium Oxide, potassium Chloride ER, potassium Chloride ER, prochlorperazine Maleate, prochlorperazine Maleate, traMADol HCl. Allergies: No Known Allergies Vital Signs: Performed on 02/15/2020 1:33 PM Height - 66.00 in, Weight - 175.0 lbs (low), BSA - 1.89 sq.m, BMI - 28.25, Temperature - 98.2 f (low), Pulse - 105 /min (high), Respiration - 24 /min, O2 Sat - 95 % (low), Pain - 0, BP - 115/ 71 mm(hg), Performed on 02/15/2020 2:08 PM BMI - 28.246 kg/m2 (high), Height - 66.00 in, Weight - 175.0 lbs, Temperature - 98.2 f, Pulse - 105, Respiration - 24, O2 Sat - 95 % (low), Pain - 0 and BP - 115/ 71 mm(hg). Physical Exam: Appears stable, no skin erythema or desquamation. Performance Status: 1 - No physically strenuous activity, but ambulatory and able to carry out light or sedentary work (e.g. office work, light house work). (ECOG) Lab: None pending in Radiation Oncology. Test performed on 10/25/2019 11:30 AM NT proBNP - 5134 pg/ml (high), T4, Free - 1.92 ng/dl (high), Test performed on 12/12/2019 1:50 PM RBC - 3.79 10 6/ul (low), MCV - 101.6 fl (high), MPV - 10.9 fl (high), Creatinine - 1.1 mg/dl (high), Cr Clearance (Est) - 62.6900 ml/min (low), eGFR - 49.5 ml/min (low), AST (SGOT) - 33 u/l (high) and Alkaline Phosphatase - 138 iu/l (high). Imaging: No new diagnostic imaging was performed since the last weekly treatment visit. All radiation therapy related imaging (including but not limited to kV, MV, and CBCT generated images) was reviewed. Appropriate changes, if any, were made to assure accurate target localization. Impression/Plan: Tolerating treatment well with expected side effects. Continue treatment as planned. CPT: 14767 Signed by: Dr. Randolph Goins>02/15/2020 5:05:22 PM <<Signature on File>>
--- NOTE | 2020-02-18 14:58 | ONC FU_ITS ---
Dr. Rascon Patient Follow-Up Note Patient: Bee Zheng Unit #: [id number]: 1950 Dicatated By: Tab Rascon M.D.Date of Visit:Feb 15, 2020 Onc Med Follow-up/Prog Note Chief Complaint: Bilateral breast cancer. History of Present Illness: This is a 69 year-old woman with bilateral invasive breast cancer, both locally advanced. The right breast was grade 1 infiltrating ductal carcinoma, post treatment stage IIA (ypT1c, ypN2a, M0), ER/HI positive and HER-2/bernadine negative. The left breast cancer was grade 3 infiltrating ductal carcinoma, post treatment stage at least IB (ypT2, ypN2a, M0), ER/HI positive and HER-2/bernadine positive. She had presented with gradually worsening swelling and firmness in her breasts after she had sustained a chest injury in a fall about 9 months ago. Bilateral mammograms on 03/23/2019 were BI-RADS 5, highly suggestive of malignancy. Findings included areas of dense asymmetry in the central right breast measuring 3.5 cm and in the central left breast measuring 4.5 by 3.9 cm. The right breast ultrasound showed an irregular hypoechoic mass at 12:00, middle depth, measuring 3.5 x 2.2 cm. Also noted was eccentric thickening of a lymph node in the right axilla. The left breast ultrasound showed a large amount of shadowing within the central breast mass containing calcifications at 12:00, measuring 4.6 x 3.7 cm. There were small benign-appearing lymph nodes on the left. She underwent bilateral ultrasound-guided biopsies on 04/06/2019. The left breast showed grade 3 infiltrating ductal carcinoma with a minor DCIS component. The breast prognostic profile showed ER positive at 87% and HI positive at 72%. There was overexpression of HER-2/bernadine, 3+ by IHC and amplification ratio by FISH of 2.3 with 7.0 HER-2 copies/cell. The Ki-67 was unfavorable at 22%. The right breast showed grade 2 infiltrating ductal carcinoma. A subsequent prognostic profile on the right breast biopsy showed ER positive at 87% and HI positive at 21%. That tumor was negative for overexpression of HER-2/bernadine, 1+ by IHC and amplification ratio by FISH of 1.0 with 2.4 HER-2 copies/cell. Staging PET/CT on 05/07/2019 showed FDG avid right breast lesion measuring 2.1 cm, SUV 13.7, and a solitary hypermetabolic right axillary lymph node with SUV 5.3, consistent with local metastatic disease. Other right axillary lymph nodes were too small to characterize by PET. The left breast showed 2 nearly contiguous lesions, the more dominant measuring 2.5 x 3.8 cm with SUV 8.3. The more inferior and lateral lesion measured 1.3 x 1.5 cm with SUV 11.7. Left axillary lymph nodes were too small to characterize by PET. There were no areas of uptake to suggest any other metastatic disease. A needle biopsy of the right axillary lymph node on 05/19/2019 showed metastatic carcinoma most consistent with breast primary. Given those findings and with HER-2/bernadine positive disease in the left breast, she was recommended to undergo neoadjuvant chemotherapy with TCH-P. On 06/02/2019 she began cycle 1 of neoadjuvant chemotherapy with TCH-P. She tolerated the treatment without acute toxicity. She subsequently developed pretty severe diarrhea, beginning around a 3 or 4. It lasted for 2 weeks. She continued with cycle 2 on 06/28/2019. That treatment was complicated by a pretty severe skin eruption, and she continued to have diarrhea. With cycle 3 on 07/26/2019 I did opt to omit the docetaxel. With had cycle there was no recurrence of skin eruption, but she continued to have severe diarrhea. With cycle 4, on 08/23/2019, I opted to admit the Perjeta and replace the taxane portion of her chemotherapy with Abraxane. On 08/29/2019 she was admitted to the hospital with severe pancytopenia. She continued to have diarrhea and she also developed significant liver dysfunction. She required transfusion of PRBC and platelets. She had uneventful recovery of her white blood cell count, but she continued to have severe thrombocytopenia at discharge, requiring additional outpatient platelet pheresis. I had seen her for a follow-up visit on 09/20/2019. Given the multiple toxicities she had experienced, I opted not to attempt any further chemotherapy. A restaging PET/CT on 09/24/2019 showed primary right breast carcinoma measuring 1.6 cm with SUV 4.6, significantly improved from the prior study. The solitary right axillary lymph node had resolved. The nearly contiguous left breast lesions were reported to have SUV of 3.1, also representing a significant response to therapy. At her follow-up visit on 10/25/2019 she still had very limited activity, and she also continued to have significant lower extremity edema. At that point her treatment remained on hold. Her medical history is otherwise significant in that she had presented in 2014 anemia, severe enough to require transfusion. This was ultimately determined to be due to endometrial cancer, for which she underwent hysterectomy/bilateral salpingo-oophorectomy. Those records are not available at this time. She indicates that there was no lymph node involvement. She apparently did receive postoperative radiation with HDR implant. There has been no evidence of recurrence of the endometrial cancer. Her other medical illnesses include hypertension and hypothyroidism. She has a history of smoking 1-2 packs of cigarettes daily for 50 years. She quit smoking in 2014. She has alcohol use of at least a 6-pack of beer daily. INTERIM HISTORY: At her follow-up visit on 11/01/2019 she had recovered sufficiently to resume treatment with single agent Herceptin at a 3-week dosing schedule. She tolerated it without significant toxicity. On 11/17/2019 she underwent bilateral modified radical mastectomies. Pathology on the left breast showed grade 2 invasive ductal carcinoma, multifocal, with the largest focus measuring 2.8 cm in maximum diameter. There was invasion into the dermis, but without skin ulceration. There was a small component of nuclear grade 1 ductal carcinoma in situ. The margins were negative. There was involvement in 6 of 8 axillary lymph nodes with the largest metastatic deposit measuring 6 mm. Pathologic staging was ypT2, ypN2a. The right breast showed grade 1 invasive ductal carcinoma measuring 1.3 cm in maximum diameter. There was an extensive component of nuclear grade 2 intraductal cancer, estimated at 13 mm. The margins were uninvolved. There was involvement in 8 of 8 axillary lymph nodes with the largest metastatic deposit measuring 5 mm. Pathologic staging was ypT1c, ypN2a. She had no complications with the surgery. She was able to continue single agent Herceptin at the 3- week dosing schedue. As of 12/13/2019 she had received her 3rd cycle. During that time she did show gradual improvement in her neuropathy and performance status. As of her visit on 01/03/2020 I opted to change her systemic therapy to Kadcyla at 3.6 mg/kg by IV infusion. At that time, she also began adjuvant hormonal therapy with anastrozole 1 mg daily. She tolerated the initial infusion of Kadcyla with no adverse effects. She then continued with cycle 2 on 01/24/2020. She began chest wall radiation on 01/25/2020. She is seen for a follow-up visit. She has been feeling good generally. She still has somewhat limited activity, but she is able to do light work. ECOG score is 1. Her appetite is up and down. Her weight is stable. She has not had fever or night sweats. She has occasional hot flashes. She initially had some pain in her hands after starting the anastrozole, but that has improved. She has a scratchy throat, but no mouth sores. She has occasional cough. She does not complain of shortness of breath or chest pain. She still has nausea occasionally. She has no other GI or complaints. She has headache occasionally and she occasionally has dizziness. She complains that her legs still feel heavy. Her hands tend to go to sleep. Medications: Aleve 1 Tablet (of 220 mg) Oral PRN, Aspirin 1 Tablet (of 81 mg) Oral daily, Imodium A-D 2 Tablet (of 2 mg) Oral b.i.d. PRN, Lasix 1 Tablet (of 40 mg) Oral daily PRN, Levothyroxine Sodium 1 (112 mcg) Tablet Oral daily, LORazepam 0.5 - 1 Tablet (of 1 mg) Oral t.i.d. PRN, Magnesium 1 Tablet Oral b.i.d., Potassium Chloride ER 1 Tablet (of 10 meq) Tablet, controlled release Oral daily, Prochlorperazine Maleate 1 Tablet (of 10 mg) Oral q 4 hours PRN, traMADol HCl 1 (50 mg) Tablet Oral t.i.d. PRN Allergies: No Known Allergies. Review of Systems: Constitutional - Complains of mild fatigue. Denies lack of appetite, fever and night sweats, ENMT - Denies dysphagia, Integumentary - Has slight redness to the chest wall, Breasts - Has no chest wall pain, Cardiovascular - Denies chest pain, Respiratory - Denies cough, dyspnea and wheezing, Constitutional - She generally feels good. Her energy is good. She is able to do housework. Her appetite is up and down. Her weight is stable. No fever or chills. She having mild hot flashes. No sweating. ECOG score is 1, ENMT - She has seasonal allergies. No mouth sores. No sore throat or difficulty swallowing, Hematologic/Lymphatic - No abnormal bruising or bleeding, Respiratory - No shortness of breath. No cough. No pleuritic pain or hemoptysis, Cardiovascular - No angina pain. No palpitations, Gastrointestinal - No nausea or vomiting. No heartburn or acid reflux. No diarrhea or constipation. No blood in the stool or black stools, Genitourinary (F) - No dysuria or hematuria. No urinary frequency. No urgency or incontinence, Musculoskeletal - She has persistent pain in her legs, Integumentary - No skin complications, Neurologic - No headache or dizziness. 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 She has insomnia. Vital Signs: Performed on Feb 15, 2020 14:08 Height - 66.00 in Weight - 175.0 lbs Temperature - 98.2 F Pulse - 105 Respiration - 24 BP - 115/71 mm(hg) O2 Sat - 95 % (LOW) Pain - 0 Performed on Feb 15, 2020 14:08 BMI - 28.246 kg/m2 (HIGH) Performed on Feb 15, 2020 13:33 Height - 66.00 in Weight - 175.0 lbs (LOW) BSA - 1.89 sq.m BMI - 28.25 Temperature - 98.2 F (LOW) Pulse - 105 /min (HIGH) Respiration - 24 /min BP - 115/71 mm(hg) O2 Sat - 95 % (LOW) Pain - 0 Physical Examination: Constitutional - She looks pretty good generally, Eyes - Sclerae nonicteric. Conjunctivae clear, ENMT - No lesions noted in the oral cavity, Hematologic/Lymphatic - No cervical or clavicular adenopathy, Respiratory - Lungs are clear with good air movement bilaterally, Cardiovascular - Heart rhythm is regular. There is no murmur, gallop, or rub noted, Breasts - There are no chest wall lesions noted. There is no axillary adenopathy, Abdomen - Soft. Liver and spleen are not enlarged. There is no abdominal mass or ascites noted and there is no inguinal adenopathy, Extremities - Mild edema, Neurologic - No focal neurologic deficits noted. Lab/Imaging: Test performed on Feb 14, 2020 13:17 Sodium 142 mmol/L Potassium 3.5 mmol/L Chloride 99 mmol/L CO2 31 mmol/L Anion Gap 15.5 BUN 18 mg/dL Creatinine 0.9 mg/dL Cr Clearance (Est) 77.4900 mL/min eGFR 62.5 mL/min Glucose 103 mg/dL Calcium 11.0 mg/dL Protein, Total 7.8 g/dL Albumin 4.1 g/dL Globulin 3.7 g/dL Bilirubin, Total 1.1 mg/dL ALT (SGPT) 28 U/L AST (SGOT) 49 U/L Alkaline Phosphatase 117 IU/L WBC 2.5 10 3/uL RBC 4.32 10 6/uL HGB 14.0 g/dL HCT 43.0 % MCV 99.5 fL MCH 32.4 pg MCHC 32.6 g/dL RDW 14.1 % Platelet Count 57 10 3/cmm MPV 11.2 fL Neutrophils 1.5 10 3/uL Lymphocytes 0.6 10 3/uL Monocytes 0.3 10 3/uL Eosinophils 0.1 10 3/uL Basophils 0.0 10 3/uL Neutrophil % 59.7 % Lymphocyte % 25.5 % Monocyte % 10.8 % Eosinophil % 2.0 % Basophils % 1.6 % Impression: 1. Patient with bilateral invasive breast cancer, both locally advanced. The right breast cancer was grade 1 infiltrating ductal carcinoma, post treatment stage IIA (ypT1c, ypN2a, M0), ER/HI positive and HER-2/bernadine negative. The left breast cancer was grade 3 infiltrating ductal carcinoma, post treatment stage at least IB (ypT2, ypN2a, M0), ER/HI positive and HER-2/bernadine positive. 2. She underwent bilateral ultrasound directed breast biopsies on 04/06/2019, and she underwent ultrasound directed needle biopsy of a right axillary lymph node on 05/19/2019. 3. She was given neoadjuvant chemotherapy with TCH-P, cycle 1 beginning on 06/02/2019. She experienced multiple toxicities including diarrhea and neuropathy, severe enough to require modifications in her treatment. The chemotherapy was stopped after 4 cycles due to toxicity. 4. As of 11/01/2019 she resumed treatment with single agent Herceptin at a 3-week dosing interval. 5. On 11/17/2019 she underwent bilateral modified radical mastectomies. Her other medical illnesses include: 6. Hypertension. 7. Hypothyroidism. 8. She has a history of endometrial cancer for which she underwent hysterectomy/bilateral salpingo-oophorectomy and postoperative HDR implant radiation in 2014. On 11/22/2019 she continued with cycle 2 of single agent Herceptin. She tolerated it well. She has had very gradual recovery from the chemotherapy-related toxicities. She continues to show improvement in her leg weakness and performance status. As of 01/03/2020 her systemic adjuvant therapy was changed from single agent Herceptin to Kadcyla at 3.6 mg/kg by IV infusion every 3 weeks. At that time she also started adjuvant hormonal therapy with anastrozole 1 mg daily. She has now completed 2 cycles of Kadcyla with no adverse effects, and thus far she also appears to be tolerating the anastrozole very well. She also has been seen by the radiation oncologist and she currently is undergoing prophylactic chest wall radiation. Plan: She will proceed cycle 3 of Kadcyla. The dosage remains the same. She also continues adjuvant hormonal therapy with anastrozole 1 mg daily. She continues chest wall radiation. She will be scheduled for a follow-up visit in 3 weeks. In the meantime, I will put in a request for breast prostheses and bras, as she has had bilateral mastectomy. Signed By: Tab Rascon M.D. <<Signature on File>>
--- NOTE | 2020-02-21 17:02 | ONCRAD TMN_ITS ---
Radiation Oncology Weekly Treatment Management Patient: Bee Zheng MR#: [id number] : 1950> Age: 69> Sex: Female Dictated by: Dr. Randolph Goins Date of Service: 02/21/2020 Referring Physician(s) : Dr. Vern Pompa Primary Diagnosis: C50.812 - Malignant neoplasm of overlapping sites of left female breast, Diagnosed 01/03/2020 (Active) Stage IB, T2, pN2a, M0, G2, HER2 Pos, ER Pos, MN P C50.811 - Malignant neoplasm of overlapping sites of right female breast, Diagnosed 01/03/2020 (Active) Stage IB, T1c, pN2a, M0, G1, HER2 Neg, ER Pos, MN Z17.0 - Estrogen receptor positive status [ER+], Diagnosed 06/23/2019 (Active) Radiotherapy to date: Course: Chest 2019, Treatment Site: [id number], Ref. ID: Chest A, Energy: 6X, Dose/Fx (cGy): 180, #Fx: , Dose Correction (cGy): 0, Total Dose (cGy): 3,240, Start Date: 01/25/2020, Elapsed Days: 27 Treatment Site: [id number], Ref. ID: Chest B, Energy: 6X, Dose/Fx (cGy): 180, #Fx: 18 28, Dose Correction (cGy): 0, Total Dose (cGy): 3,240, Start Date: 01/25/2020, Elapsed Days: 27 Treatment Site: [id number], Ref. ID: Chest C, Energy: 6X, Dose/Fx (cGy): 180, #Fx: 18 28, Dose Correction (cGy): 0, Total Dose (cGy): 3,240, Start Date: 01/25/2020, Elapsed Days: 27 Current Complaints/Interval History: Drinking Gatoraid and water. Using topical lotion over chest wall with less tightness experienced. No itch or burn. On chronic diuretic (Lasix?) Constitutional Complains of mild fatigue. Denies lack of appetite, fever and night sweats. ENMT Denies dysphagia. Integumentary Has redness to the chest wall Breasts Has no chest wall pain Cardiovascular Complains of edema in both feet. Denies arrhythmias and chest pain. Respiratory Denies cough, dyspnea and wheezing. Current Medications: Aleve, anastrozole, aspirin, dexamethasone, gabapentin, imodium A-D, kadcyla, lasix, lasix, levothyroxine Sodium, lORazepam, lORazepam, magnesium, magnesium Oxide, potassium Chloride ER, potassium Chloride ER, prochlorperazine Maleate, prochlorperazine Maleate, traMADol HCl. Allergies: No Known Allergies Vital Signs: Performed on 02/21/2020 2:17 PM BMI - 28.44 kg/m2 (high), Height - 66.00 in, Weight - 176.2 lbs, Temperature - 98.2 f, Pulse - 102, Respiration - 18, O2 Sat - 96 %, Pain - 0 and BP - 86/ 50 mm(hg)(low). Physical Exam: Mild chest wall erythema with min ankle fullness Performance Status: 1 - No physically strenuous activity, but ambulatory and able to carry out light or sedentary work (e.g. office work, light house work). (ECOG) Lab: None pending in Radiation Oncology. Test performed on 10/25/2019 11:30 AM NT proBNP - 5134 pg/ml (high), T4, Free - 1.92 ng/dl (high), Test performed on 02/14/2020 1:17 PM WBC - 2.5 10 3/ul (low), MCV - 99.5 fl (high), Platelet Count - 57 10 3/cmm (low), MPV - 11.2 fl (high), Neutrophils - 1.5 10 3/ul (low), Lymphocytes - 0.6 10 3/ul (low), CO2 - 31 mmol/l (high), eGFR - 62.5 ml/min (low), Calcium - 11.0 mg/dl (high), AST (SGOT) - 49 u/l (high) and Alkaline Phosphatase - 117 iu/l (high). Imaging: No new diagnostic imaging was performed since the last weekly treatment visit. All radiation therapy related imaging (including but not limited to kV, MV, and CBCT generated images) was reviewed. Appropriate changes, if any, were made to assure accurate target localization. Impression/Plan: Tolerating treatment well with expected side effects. Continue treatment as planned. In light of hypotension, she will reduce diuretic use to [id number] and monitor BP at home. We will also recheck BP here. CPT: 25226 Signed by: Dr. Randolph Goins>02/21/2020 5:00:05 PM <<Signature on File>>
== END 2020-02-23 23:59 | disposition home or self-care (01) ==
LOC: ONCMED 06:52
PROVIDERS: Internal Medicine Medical Oncology; PCP Nurse Practitioner Family; Visit Provider Radiology Radiation Oncology
DX: Z51.0 Encounter for antineoplastic radiation therapy (principal); C50.812 Malignant neoplasm of overlapping sites of left female breast; C50.811 Malignant neoplasm of overlapping sites of right female breast; C77.3 Secondary and unspecified malignant neoplasm of axilla and upper limb lymph nodes; I10 Essential (primary) hypertension; E03.9 Hypothyroidism, unspecified; Z17.0 Estrogen receptor positive status [ER+]; Z79.811 Long term (current) use of aromatase inhibitors; Z85.42 Personal history of malignant neoplasm of other parts of uterus; Z79.82 Long term (current) use of aspirin; Z90.13 Acquired absence of bilateral breasts and nipples; Z90.710 Acquired absence of both cervix and uterus; Z90.722 Acquired absence of ovaries, bilateral; Z79.899 Other long term (current) drug therapy
CPT/HCPCS: 36415; 77336; 77386; 80053; 85025; 99214

== ENCOUNTER 2020-03-23 06:46 | Outpatient (RCR) | payer MEDICARE, OTHER, SELFPAY ==
[2020-02-28 14:08] LABS: Basophils # 0.1 10^3/uL (0.0-0.1); Basophils % 2.3 %; Eosinophils # 0.1 10^3/uL (0.0-0.8); Eosinophils % 4.5 %; Hematocrit 42.4 % (37.0-47.0); Hemoglobin 13.8 g/dL (11.5-15.3); Lymphocytes # 0.4 10^3/uL (0.8-4.8); Lymphocytes % 13.2 %; Mean Corpuscular HGB Conc 32.5 g/dL (30.0-36.0); Mean Corpuscular Hemoglobin 32.9 pg (28.0-34.0); Mean Corpuscular Volume 101.2 fL (81-99); Mean Platelet Volume 11.3 fL (7.4-10.4); Monocytes # 0.4 10^3/uL (0.2-0.9); Monocytes % 13.9 %; Neutrophils # 1.8 10^3/uL (1.8-7.7); Neutrophils % 65.7 %; Nucleated Red Blood Cells % 0 %; Platelet Count 68 10^3/cmm (130-400); Red Blood Count 4.19 10^6/uL (4.1-5.3); White Blood Count 2.7 10^3/uL (4.0-10.0)
[2020-02-28 14:15] LABS: Alanine Aminotransferase 19 U/L (0-33); Albumin Level 3.9 g/dL (3.5-5.2); Alkaline Phosphatase 113 IU/L (35-105); Anion Gap 16.3 (5-19); Aspartate Amino Transferase 34 U/L (0-32); Blood Urea Nitrogen 15 mg/dL (8-23); Carbon Dioxide 26 mmol/L (22-29); Chloride 100 mmol/L (98-107); Globulin 3.3 g/dL (1.3-4.6); Glomerular Filtration Rate 62.5 mL/min (90-130); Glucose 154 mg/dL (65-115); Osmolality Calculated 287 mOsm/kg (285-295); Potassium 3.3 mmol/L (3.5-5.1); Sodium 139 mmol/L (136-145); Total Bilirubin 0.8 mg/dL (0.15-1.2); Total Protein 7.2 g/dL (6.6-8.7)
--- NOTE | 2020-02-29 15:38 | ONCRAD TMN_ITS ---
Radiation Oncology Weekly Treatment Management Patient: Bee Zheng MR#: [id number] : 1950> Age: 69> Sex: Female Dictated by: Dr. Randolph Goins Date of Service: 02/29/2020 Referring Physician(s) : Dr. Vern Pompa Primary Diagnosis: C50.812 - Malignant neoplasm of overlapping sites of left female breast, Diagnosed 01/03/2020 (Active) Stage IB, T2, pN2a, M0, G2, HER2 Pos, ER Pos, CA P C50.811 - Malignant neoplasm of overlapping sites of right female breast, Diagnosed 01/03/2020 (Active) Stage IB, T1c, pN2a, M0, G1, HER2 Neg, ER Pos, CA Z17.0 - Estrogen receptor positive status [ER+], Diagnosed 06/23/2019 (Active) Radiotherapy to date: Course: Chest 2019, Treatment Site: [id number], Ref. ID: Chest A, Energy: 6X, Dose/Fx (cGy): 180, #Fx: 28, Dose Correction (cGy): 0, Total Dose (cGy): 4,320, Start Date: 01/25/2020, Elapsed Days: 35 Treatment Site: [id number], Ref. ID: Chest B, Energy: 6X, Dose/Fx (cGy): 180, #Fx: / 28, Dose Correction (cGy): 0, Total Dose (cGy): 4,320, Start Date: 01/25/2020, Elapsed Days: 35 Treatment Site: [id number], Ref. ID: Chest C, Energy: 6X, Dose/Fx (cGy): 180, #Fx: 24 / 28, Dose Correction (cGy): 0, Total Dose (cGy): 4,320, Start Date: 01/25/2020, Elapsed Days: 35 Current Complaints/Interval History: Notes some chest wall stiffness. Some scratchy throat also noted. Mild ongoing fatigue. Constitutional Complains of mild fatigue. Denies lack of appetite, fever, night sweats and change in weight. ENMT Complains of dysphagia. Integumentary Has no redness to the chest wall. Breasts Has no chest wall pain Cardiovascular Denies chest pain. Respiratory Complains of cough related to sinus drainage. Denies dyspnea and wheezing. Current Medications: Aleve, anastrozole, aspirin, dexamethasone, gabapentin, imodium A-D, kadcyla, lasix, lasix, levothyroxine Sodium, lORazepam, lORazepam, magnesium, magnesium Oxide, potassium Chloride ER, potassium Chloride ER, prochlorperazine Maleate, prochlorperazine Maleate, traMADol HCl. Allergies: No Known Allergies Vital Signs: Performed on 02/29/2020 2:20 PM BMI - 29.214 kg/m2 (high), Height - 66.00 in, Weight - 181.0 lbs, Temperature - 98.2 f, Pulse - 94, Respiration - 20, O2 Sat - 96 %, Pain - 0 and BP - 116/ 77 mm(hg). Physical Exam: Appears stable. Mild chest wall erythema and tanning. Arms with full range of motion with no arm edema. Performance Status: 0 - Fully active, able to carry on all pre disease activities without restrictions. (ECOG) Lab: None pending in Radiation Oncology. Test performed on 10/25/2019 11:30 AM NT proBNP - 5134 pg/ml (high), T4, Free - 1.92 ng/dl (high), Test performed on 02/14/2020 1:17 PM WBC - 2.5 10 3/ul (low), MCV - 99.5 fl (high), Platelet Count - 57 10 3/cmm (low), MPV - 11.2 fl (high), Neutrophils - 1.5 10 3/ul (low), Lymphocytes - 0.6 10 3/ul (low), CO2 - 31 mmol/l (high), eGFR - 62.5 ml/min (low), Calcium - 11.0 mg/dl (high), AST (SGOT) - 49 u/l (high) and Alkaline Phosphatase - 117 iu/l (high). Imaging: No new diagnostic imaging was performed since the last weekly treatment visit. All radiation therapy related imaging (including but not limited to kV, MV, and CBCT generated images) was reviewed. Appropriate changes, if any, were made to assure accurate target localization. Impression/Plan: Tolerating treatment well with expected side effects. Continue treatment as planned. Add salt and soda gargles. CPT: 37883 Signed by: Dr. Randolph Goins>02/29/2020 3:36:39 PM <<Signature on File>>
--- NOTE | 2020-03-03 15:42 | ONC FU_ITS ---
Dr. Rascon Patient Follow-Up Note Patient: Bee Zheng Unit #: [id number]: 1950 Dicatated By: Tab Rascon M.D.Date of Visit:February 29, 2020 Onc Med Follow-up/Prog Note Chief Complaint: Bilateral breast cancer. History of Present Illness: This is a 69 year-old woman with bilateral invasive breast cancer, both locally advanced. The right breast was grade 1 infiltrating ductal carcinoma, post treatment stage IIA (ypT1c, ypN2a, M0), ER/MA positive and HER-2/bernadine negative. The left breast cancer was grade 3 infiltrating ductal carcinoma, post treatment stage at least IB (ypT2, ypN2a, M0), ER/MA positive and HER-2/bernadine positive. She had presented with gradually worsening swelling and firmness in her breasts after she had sustained a chest injury in a fall about 9 months ago. Bilateral mammograms on 03/23/2019 were BI-RADS 5, highly suggestive of malignancy. Findings included areas of dense asymmetry in the central right breast measuring 3.5 cm and in the central left breast measuring 4.5 by 3.9 cm. The right breast ultrasound showed an irregular hypoechoic mass at 12:00, middle depth, measuring 3.5 x 2.2 cm. Also noted was eccentric thickening of a lymph node in the right axilla. The left breast ultrasound showed a large amount of shadowing within the central breast mass containing calcifications at 12:00, measuring 4.6 x 3.7 cm. There were small benign-appearing lymph nodes on the left. She underwent bilateral ultrasound-guided biopsies on 04/06/2019. The left breast showed grade 3 infiltrating ductal carcinoma with a minor DCIS component. The breast prognostic profile showed ER positive at 87% and MA positive at 72%. There was overexpression of HER-2/bernadine, 3+ by IHC and amplification ratio by FISH of 2.3 with 7.0 HER-2 copies/cell. The Ki-67 was unfavorable at 22%. The right breast showed grade 2 infiltrating ductal carcinoma. A subsequent prognostic profile on the right breast biopsy showed ER positive at 87% and MA positive at 21%. That tumor was negative for overexpression of HER-2/bernadine, 1+ by IHC and amplification ratio by FISH of 1.0 with 2.4 HER-2 copies/cell. Staging PET/CT on 05/07/2019 showed FDG avid right breast lesion measuring 2.1 cm, SUV 13.7, and a solitary hypermetabolic right axillary lymph node with SUV 5.3, consistent with local metastatic disease. Other right axillary lymph nodes were too small to characterize by PET. The left breast showed 2 nearly contiguous lesions, the more dominant measuring 2.5 x 3.8 cm with SUV 8.3. The more inferior and lateral lesion measured 1.3 x 1.5 cm with SUV 11.7. Left axillary lymph nodes were too small to characterize by PET. There were no areas of uptake to suggest any other metastatic disease. A needle biopsy of the right axillary lymph node on 05/19/2019 showed metastatic carcinoma most consistent with breast primary. Given those findings and with HER-2/bernadine positive disease in the left breast, she was recommended to undergo neoadjuvant chemotherapy with TCH-P. On 06/02/2019 she began cycle 1 of neoadjuvant chemotherapy with TCH-P. She tolerated the treatment without acute toxicity. She subsequently developed pretty severe diarrhea, beginning around a 3 or 4. It lasted for 2 weeks. She continued with cycle 2 on 06/28/2019. That treatment was complicated by a pretty severe skin eruption, and she continued to have diarrhea. With cycle 3 on 07/26/2019 I did opt to omit the docetaxel. With had cycle there was no recurrence of skin eruption, but she continued to have severe diarrhea. With cycle 4, on 08/23/2019, I opted to admit the Perjeta and replace the taxane portion of her chemotherapy with Abraxane. On 08/29/2019 she was admitted to the hospital with severe pancytopenia. She continued to have diarrhea and she also developed significant liver dysfunction. She required transfusion of PRBC and platelets. She had uneventful recovery of her white blood cell count, but she continued to have severe thrombocytopenia at discharge, requiring additional outpatient platelet pheresis. I had seen her for a follow-up visit on 09/20/2019. Given the multiple toxicities she had experienced, I opted not to attempt any further chemotherapy. A restaging PET/CT on 09/24/2019 showed primary right breast carcinoma measuring 1.6 cm with SUV 4.6, significantly improved from the prior study. The solitary right axillary lymph node had resolved. The nearly contiguous left breast lesions were reported to have SUV of 3.1, also representing a significant response to therapy. At her follow-up visit on 10/25/2019 she still had very limited activity, and she also continued to have significant lower extremity edema. At that point her treatment remained on hold. Her medical history is otherwise significant in that she had presented in 2014 anemia, severe enough to require transfusion. This was ultimately determined to be due to endometrial cancer, for which she underwent hysterectomy/bilateral salpingo-oophorectomy. Those records are not available at this time. She indicates that there was no lymph node involvement. She apparently did receive postoperative radiation with HDR implant. There has been no evidence of recurrence of the endometrial cancer. Her other medical illnesses include hypertension and hypothyroidism. She has a history of smoking 1-2 packs of cigarettes daily for 50 years. She quit smoking in 2014. She has alcohol use of at least a 6-pack of beer daily. INTERIM HISTORY: At her follow-up visit on 11/01/2019 she had recovered sufficiently to resume treatment with single agent Herceptin at a 3-week dosing schedule. She tolerated it without significant toxicity. On 11/17/2019 she underwent bilateral modified radical mastectomies. Pathology on the left breast showed grade 2 invasive ductal carcinoma, multifocal, with the largest focus measuring 2.8 cm in maximum diameter. There was invasion into the dermis, but without skin ulceration. There was a small component of nuclear grade 1 ductal carcinoma in situ. The margins were negative. There was involvement in 6 of 8 axillary lymph nodes with the largest metastatic deposit measuring 6 mm. Pathologic staging was ypT2, ypN2a. The right breast showed grade 1 invasive ductal carcinoma measuring 1.3 cm in maximum diameter. There was an extensive component of nuclear grade 2 intraductal cancer, estimated at 13 mm. The margins were uninvolved. There was involvement in 8 of 8 axillary lymph nodes with the largest metastatic deposit measuring 5 mm. Pathologic staging was ypT1c, ypN2a. She had no complications with the surgery. She was able to continue single agent Herceptin at the 3- week dosing schedue. As of 12/13/2019 she had received her 3rd cycle. During that time she did show gradual improvement in her neuropathy and performance status. As of her visit on 01/03/2020 I opted to change her systemic therapy to Kadcyla at 3.6 mg/kg by IV infusion. At that time, she also began adjuvant hormonal therapy with anastrozole 1 mg daily. She tolerated the initial infusion of Kadcyla with no adverse effects. She continued with cycle 2 on 01/24/2020, and she began chest wall radiation on 01/25/2020. Her 3rd cycle of Kadcyla was delayed due to neutropenia. She is seen for a follow-up visit. She has been feeling somewhat more fatigued during the radiation. She is still doing light work. ECOG score is 1. Appetite is good. She has no fever, night sweats, or hot flashes. She has had scratchy throat. She does not complain of shortness of breath, cough, or chest pain. She has had some nausea. She has no other GI or complaints. She continues to have pain in her legs and she has some numbness in her legs and in her fingers. Medications: Aleve 1 Tablet (of 220 mg) Oral PRN, Aspirin 1 Tablet (of 81 mg) Oral daily, Imodium A-D 2 Tablet (of 2 mg) Oral b.i.d. PRN, Lasix 1 Tablet (of 40 mg) Oral daily PRN, Levothyroxine Sodium 1 (112 mcg) Tablet Oral daily, LORazepam 0.5 - 1 Tablet (of 1 mg) Oral t.i.d. PRN, Magnesium 1 Tablet Oral b.i.d., Potassium Chloride ER 1 Tablet (of 10 meq) Tablet, controlled release Oral daily, Prochlorperazine Maleate 1 Tablet (of 10 mg) Oral q 4 hours PRN, traMADol HCl 1 (50 mg) Tablet Oral t.i.d. PRN Allergies: No Known Allergies. Review of Systems: Constitutional - She has been feeling okay. Her energy level is pretty good. She is able to do work around the house. Her appetite is good and weight is up a few pounds. No fever, chills, hot flashes, or night sweats. ECOG score is 1, ENMT - She has sinus drainage. No mouth sores. No sore throat or difficulty swallowing, Hematologic/Lymphatic - She bruises easily, Respiratory - No shortness of breath. No cough. No pleuritic pain or hemoptysis, Cardiovascular - No angina pain. No palpitations, Gastrointestinal - She is having nausea with radiation. No vomiting. No heartburn or acid reflux. No diarrhea or constipation. No blood in the stool or black stools, Genitourinary (F) - No dysuria or hematuria. No urinary frequency. No urgency or incontinence, Musculoskeletal - She has some pain in her legs, Integumentary - No skin complications, Neurologic - No headache or dizziness. She has numbness and tingling in her legs and and in her fingers, Psychiatric - She has anxiety and depression. She does not sleep well, Constitutional - Complains of mild fatigue. Denies lack of appetite, fever, night sweats and change in weight, ENMT - Complains of dysphagia, Integumentary - Has no redness to the chest wall, Breasts - Has no chest wall pain, Cardiovascular - Denies chest pain, Respiratory - Complains of cough related to sinus drainage. Denies dyspnea and wheezing. Vital Signs: Performed on February 29, 2020 14:20 Height - 66.00 in Weight - 181.0 lbs Temperature - 98.2 F Pulse - 94 Respiration - 20 BP - 116/77 mm(hg) O2 Sat - 96 % Pain - 0 Performed on February 29, 2020 14:20 BMI - 29.214 kg/m2 (HIGH) Physical Examination: Constitutional - She looks pretty good generally, Eyes - Sclerae nonicteric. Conjunctivae clear, ENMT - No lesions noted in the oral cavity, Hematologic/Lymphatic - No cervical or clavicular adenopathy, Respiratory - Lungs are clear with good air movement bilaterally, Cardiovascular - Heart rhythm is regular. There is no murmur, gallop, or rub noted, Abdomen - Soft. Liver and spleen are not enlarged. There is no abdominal mass or ascites noted and there is no inguinal adenopathy, Extremities - No edema, Neurologic - No focal neurologic deficits noted. Lab/Imaging: Test performed on February 28, 2020 13:36 Sodium 139 mmol/L Potassium 3.3 mmol/L Chloride 100 mmol/L CO2 26 mmol/L Anion Gap 16.3 BUN 15 mg/dL Creatinine 0.9 mg/dL Cr Clearance (Est) 77.4900 mL/min eGFR 62.5 mL/min Glucose 154 mg/dL Calcium 10.0 mg/dL Protein, Total 7.2 g/dL Albumin 3.9 g/dL Globulin 3.3 g/dL Bilirubin, Total 0.8 mg/dL ALT (SGPT) 19 U/L AST (SGOT) 34 U/L Alkaline Phosphatase 113 IU/L WBC 2.7 10 3/uL RBC 4.19 10 6/uL HGB 13.8 g/dL HCT 42.4 % MCV 101.2 fL MCH 32.9 pg MCHC 32.5 g/dL RDW 15.0 % Platelet Count 68 10 3/cmm MPV 11.3 fL Neutrophils 1.8 10 3/uL Lymphocytes 0.4 10 3/uL Monocytes 0.4 10 3/uL Eosinophils 0.1 10 3/uL Basophils 0.1 10 3/uL Neutrophil % 65.7 % Lymphocyte % 13.2 % Monocyte % 13.9 % Eosinophil % 4.5 % Basophils % 2.3 % Impression: 1. Patient with bilateral invasive breast cancer, both locally advanced. The right breast cancer was grade 1 infiltrating ductal carcinoma, post treatment stage IIA (ypT1c, ypN2a, M0), ER/MA positive and HER-2/bernadine negative. The left breast cancer was grade 3 infiltrating ductal carcinoma, post treatment stage at least IB (ypT2, ypN2a, M0), ER/MA positive and HER-2/bernadine positive. 2. She underwent bilateral ultrasound directed breast biopsies on 04/06/2019, and she underwent ultrasound directed needle biopsy of a right axillary lymph node on 05/19/2019. 3. She was given neoadjuvant chemotherapy with TCH-P, cycle 1 beginning on 06/02/2019. She experienced multiple toxicities including diarrhea and neuropathy, severe enough to require modifications in her treatment. The chemotherapy was stopped after 4 cycles due to toxicity. 4. As of 11/01/2019 she resumed treatment with single agent Herceptin at a 3-week dosing interval. 5. On 11/17/2019 she underwent bilateral modified radical mastectomies. Her other medical illnesses include: 6. Hypertension. 7. Hypothyroidism. 8. She has a history of endometrial cancer for which she underwent hysterectomy/bilateral salpingo-oophorectomy and postoperative HDR implant radiation in 2014. On 11/22/2019 she continued with cycle 2 of single agent Herceptin. She tolerated it well. She has had very gradual recovery from the chemotherapy-related toxicities. She continues to show improvement in her leg weakness and performance status. As of 01/03/2020 her systemic adjuvant therapy was changed from single agent Herceptin to Kadcyla at 3.6 mg/kg by IV infusion every 3 weeks. At that time she also started adjuvant hormonal therapy with anastrozole 1 mg daily. She completed 2 cycles of Kadcyla with no adverse effects. She was then seen by the radiation oncologist and she began prophylactic chest wall radiation. Her 3rd cycle of Kadcyla was delayed due to neutropenia She reports having some nausea and some increased fatigue with the radiation. She continues to have moderately severe neutropenia. Plan: Her Kadcyla will remain on hold due to the neutropenia. She will continue adjuvant hormonal therapy with anastrozole 1 mg daily. She will continue her oral potassium supplement. She will be scheduled for a follow-up visit in 2 weeks. Signed By: Tab Rascon M.D. <<Signature on File>>
--- NOTE | 2020-03-06 15:56 | ONCRAD TMN_ITS ---
Radiation Oncology Weekly Treatment Management Patient: Bee Zheng MR#: [id number] : 1950> Age: 69> Sex: Female Dictated by: Dr. Randolph Goins Date of Service: 03/06/2020 Referring Physician(s) : Dr. Vern Pompa Primary Diagnosis: C50.812 - Malignant neoplasm of overlapping sites of left female breast, Diagnosed 01/03/2020 (Active) Stage IB, T2, pN2a, M0, G2, HER2 Pos, ER Pos, TN P C50.811 - Malignant neoplasm of overlapping sites of right female breast, Diagnosed 01/03/2020 (Active) Stage IB, T1c, pN2a, M0, G1, HER2 Neg, ER Pos, TN Z17.0 - Estrogen receptor positive status [ER+], Diagnosed 06/23/2019 (Active) Radiotherapy to date: Course: Chest 2019, Treatment Site: [id number], Ref. ID: Chest A, Energy: 6X, Dose/Fx (cGy): 180, #Fx: , Dose Correction (cGy): 0, Total Dose (cGy): 5,040, Start Date: 01/25/2020, End Date: 03/06/2020, Elapsed Days: 41 Treatment Site: [id number], Ref. ID: Chest B, Energy: 6X, Dose/Fx (cGy): 180, #Fx: 28, Dose Correction (cGy): 0, Total Dose (cGy): 5,040, Start Date: 01/25/2020, End Date: 03/06/2020, Elapsed Days: 41 Treatment Site: [id number], Ref. ID: Chest C, Energy: 6X, Dose/Fx (cGy): 180, #Fx: , Dose Correction (cGy): 0, Total Dose (cGy): 5,040, Start Date: 01/25/2020, End Date: 03/06/2020, Elapsed Days: 41 Current Complaints/Interval History: She notes some itching over her chest wall. No skin peeling or significant burning pain. She is eating well. She is using topical Aquaphor. She has a follow-up with Dr. Rascon next week. Constitutional Complains of mild fatigue. Denies lack of appetite, fever, night sweats and change in weight. ENMT Complains of dysphagia occasionally. Integumentary Has rednees to the chest wall Breasts Has no chest wall pain. Cardiovascular Denies chest pain. Respiratory Complains of cough occasionally. Complains of dyspnea associated with normal activity. Complains of wheezing. Current Medications: Aleve, anastrozole, aspirin, dexamethasone, gabapentin, imodium A-D, kadcyla, lasix, lasix, levothyroxine Sodium, lORazepam, lORazepam, magnesium, magnesium Oxide, potassium Chloride ER, potassium Chloride ER, prochlorperazine Maleate, prochlorperazine Maleate, traMADol HCl. Allergies: No Known Allergies Vital Signs: Performed on 03/06/2020 2:32 PM BMI - 28.762 kg/m2 (high), Height - 66.00 in, Weight - 178.2 lbs, Temperature - 98.4 f, Pulse - 102, Respiration - 20, O2 Sat - 100 %, Pain - 0 and BP - 104/ 74 mm(hg). Physical Exam she had tanning over both chest verdin erythema centrally with minimal peeling of the sternal area. Arms had full range of motion no arm edema. Performance Status: 1 - No physically strenuous activity, but ambulatory and able to carry out light or sedentary work (e.g. office work, light house work). (ECOG) Lab: None pending in Radiation Oncology. Test performed on 10/25/2019 11:30 AM NT proBNP - 5134 pg/ml (high), T4, Free - 1.92 ng/dl (high), Test performed on 02/28/2020 1:36 PM WBC - 2.7 10 3/ul (low), MCV - 101.2 fl (high), Platelet Count - 68 10 3/cmm (low), MPV - 11.3 fl (high), Lymphocytes - 0.4 10 3/ul (low), Potassium - 3.3 mmol/l (low), eGFR - 62.5 ml/min (low), Glucose - 154 mg/dl (high), AST (SGOT) - 34 u/l (high) and Alkaline Phosphatase - 113 iu/l (high). Imaging: No new diagnostic imaging was performed since the last weekly treatment visit. All radiation therapy related imaging (including but not limited to kV, MV, and CBCT generated images) was reviewed. Appropriate changes, if any, were made to assure accurate target localization. Impression/Plan she has completed bilateral chest wall radiation therapy. She has done well overall with modest skin toxicity this should resolve in the next weeks or. I advised topical Benadryl for her itch. She will see Dr. Rascon as scheduled and return here in 1 month. CPT: 52847 Signed by: Dr. Randolph Goins>03/06/2020 3:54:39 PM <<Signature on File>>
[2020-03-14 13:41] LABS: Basophils # 0.1 10^3/uL (0.0-0.1); Basophils % 1.9 %; Eosinophils # 0.5 10^3/uL (0.0-0.8); Eosinophils % 13.1 %; Hematocrit 39.8 % (37.0-47.0); Hemoglobin 13.4 g/dL (11.5-15.3); Lymphocytes # 0.3 10^3/uL (0.8-4.8); Lymphocytes % 7.8 %; Mean Corpuscular HGB Conc 33.7 g/dL (30.0-36.0); Mean Corpuscular Hemoglobin 33.3 pg (28.0-34.0); Mean Platelet Volume 11.2 fL (7.4-10.4); Monocytes # 0.7 10^3/uL (0.2-0.9); Monocytes % 18.1 %; Neutrophils # 2.1 10^3/uL (1.8-7.7); Neutrophils % 58.5 %; Nucleated Red Blood Cells % 0 %; Platelet Count 68 10^3/cmm (130-400); Red Blood Count 4.02 10^6/uL (4.1-5.3); Red Cell Distribution Width 14.8 % (12.1-15.1); White Blood Count 3.6 10^3/uL (4.0-10.0)
[2020-03-14 14:03] LABS: Alanine Aminotransferase 22 U/L (0-33); Albumin Level 3.6 g/dL (3.5-5.2); Alkaline Phosphatase 161 IU/L (35-105); Anion Gap 15.7 (5-19); Aspartate Amino Transferase 36 U/L (0-32); Blood Urea Nitrogen 23 mg/dL (8-23); Calcium 10.3 mg/dL (8.5-10.5); Carbon Dioxide 24 mmol/L (22-29); Chloride 98 mmol/L (98-107); Globulin 3.7 g/dL (1.3-4.6); Glomerular Filtration Rate 71.5 mL/min (90-130); Glucose 131 mg/dL (65-115); Osmolality Calculated 277 mOsm/kg (285-295); Potassium 3.7 mmol/L (3.5-5.1); Sodium 134 mmol/L (136-145); Total Bilirubin 0.6 mg/dL (0.15-1.2); Total Protein 7.3 g/dL (6.6-8.7)
[2020-03-14] MEDS: sodium chloride 0.9% 1,000 ML 999 ML IV (14:55)
--- NOTE | 2020-03-19 17:02 | ONC FU_ITS ---
[facility] Patient Note Patient: Bee Zheng Unit #: [id number]: 1950 Dictated By: Christopher KatzDate of Visit: March 14, 2020 Onc MED Follow-Up/Prog Note Chief Complaint: Bilateral breast cancer. History of Present Illness: Ms Zheng is a 69 year-old woman with bilateral invasive breast cancer, both locally advanced. The right breast was grade 1 infiltrating ductal carcinoma, post treatment stage IIA (ypT1c, ypN2a, M0), ER/WI positive and HER-2/bernadine negative. The left breast cancer was grade 3 infiltrating ductal carcinoma, post treatment stage at least IB (ypT2, ypN2a, M0), ER/WI positive and HER-2/bernadine positive. She had presented with gradually worsening swelling and firmness in her breasts after she had sustained a chest injury in a fall about 9 months ago. Bilateral mammograms on 03/23/2019 were BI-RADS 5, highly suggestive of malignancy. Findings included areas of dense asymmetry in the central right breast measuring 3.5 cm and in the central left breast measuring 4.5 by 3.9 cm. The right breast ultrasound showed an irregular hypoechoic mass at 12:00, middle depth, measuring 3.5 x 2.2 cm. Also noted was eccentric thickening of a lymph node in the right axilla. The left breast ultrasound showed a large amount of shadowing within the central breast mass containing calcifications at 12:00, measuring 4.6 x 3.7 cm. There were small benign-appearing lymph nodes on the left. She underwent bilateral ultrasound-guided biopsies on 04/06/2019. The left breast showed grade 3 infiltrating ductal carcinoma with a minor DCIS component. The breast prognostic profile showed ER positive at 87% and WI positive at 72%. There was overexpression of HER-2/bernadine, 3+ by IHC and amplification ratio by FISH of 2.3 with 7.0 HER-2 copies/cell. The Ki-67 was unfavorable at 22%. The right breast showed grade 2 infiltrating ductal carcinoma. A subsequent prognostic profile on the right breast biopsy showed ER positive at 87% and WI positive at 21%. That tumor was negative for overexpression of HER-2/bernadine, 1+ by IHC and amplification ratio by FISH of 1.0 with 2.4 HER-2 copies/cell. Staging PET/CT on 05/07/2019 showed FDG avid right breast lesion measuring 2.1 cm, SUV 13.7, and a solitary hypermetabolic right axillary lymph node with SUV 5.3, consistent with local metastatic disease. Other right axillary lymph nodes were too small to characterize by PET. The left breast showed 2 nearly contiguous lesions, the more dominant measuring 2.5 x 3.8 cm with SUV 8.3. The more inferior and lateral lesion measured 1.3 x 1.5 cm with SUV 11.7. Left axillary lymph nodes were too small to characterize by PET. There were no areas of uptake to suggest any other metastatic disease. A needle biopsy of the right axillary lymph node on 05/19/2019 showed metastatic carcinoma most consistent with breast primary. Given those findings and with HER-2/bernadine positive disease in the left breast, she was recommended to undergo neoadjuvant chemotherapy with TCH-P. On 06/02/2019 she began cycle 1 of neoadjuvant chemotherapy with TCH-P. She tolerated the treatment without acute toxicity. She subsequently developed pretty severe diarrhea, beginning around a 3 or 4. It lasted for 2 weeks. She continued with cycle 2 on 06/28/2019. That treatment was complicated by a pretty severe skin eruption, and she continued to have diarrhea. With cycle 3 on 07/26/2019 I did opt to omit the docetaxel. With had cycle there was no recurrence of skin eruption, but she continued to have severe diarrhea. With cycle 4, on 08/23/2019, Dr Rascon opted to admit the Perjeta and replace the taxane portion of her chemotherapy with Abraxane. On 08/29/2019 she was admitted to the hospital with severe pancytopenia. She continued to have diarrhea and she also developed significant liver dysfunction. She required transfusion of PRBC and platelets. She had uneventful recovery of her white blood cell count, but she continued to have severe thrombocytopenia at discharge, requiring additional outpatient platelet pheresis. Dr Rascon had seen her for a follow-up visit on 09/20/2019. Given the multiple toxicities she had experienced, it was opted to not attempt any further chemotherapy. A restaging PET/CT on 09/24/2019 showed primary right breast carcinoma measuring 1.6 cm with SUV 4.6, significantly improved from the prior study. The solitary right axillary lymph node had resolved. The nearly contiguous left breast lesions were reported to have SUV of 3.1, also representing a significant response to therapy. At her follow-up visit on 10/25/2019 she still had very limited activity, and she also continued to have significant lower extremity edema. At that point her treatment remained on hold. Her medical history is otherwise significant in that she had presented in 2014 anemia, severe enough to require transfusion. This was ultimately determined to be due to endometrial cancer, for which she underwent hysterectomy/bilateral salpingo-oophorectomy. Those records are not available at this time. She indicates that there was no lymph node involvement. She apparently did receive postoperative radiation with HDR implant. There has been no evidence of recurrence of the endometrial cancer. Her other medical illnesses include hypertension and hypothyroidism. She has a history of smoking 1-2 packs of cigarettes daily for 50 years. She quit smoking in 2014. She has alcohol use of at least a 6-pack of beer daily. INTERIM HISTORY: At her follow-up visit on 11/01/2019 she had recovered sufficiently to resume treatment with single agent Herceptin at a 3-week dosing schedule. She tolerated it without significant toxicity. On 11/17/2019 she underwent bilateral modified radical mastectomies. Pathology on the left breast showed grade 2 invasive ductal carcinoma, multifocal, with the largest focus measuring 2.8 cm in maximum diameter. There was invasion into the dermis, but without skin ulceration. There was a small component of nuclear grade 1 ductal carcinoma in situ. The margins were negative. There was involvement in 6 of 8 axillary lymph nodes with the largest metastatic deposit measuring 6 mm. Pathologic staging was ypT2, ypN2a. The right breast showed grade 1 invasive ductal carcinoma measuring 1.3 cm in maximum diameter. There was an extensive component of nuclear grade 2 intraductal cancer, estimated at 13 mm. The margins were uninvolved. There was involvement in 8 of 8 axillary lymph nodes with the largest metastatic deposit measuring 5 mm. Pathologic staging was ypT1c, ypN2a. She had no complications with the surgery. She was able to continue single agent Herceptin at the 3- week dosing schedue. As of 12/13/2019 she had received her 3rd cycle. During that time she did show gradual improvement in her neuropathy and performance status. As of her visit on 01/03/2020, Dr Rascon opted to change her systemic therapy to Kadcyla at 3.6 mg/kg by IV infusion. At that time, she also began adjuvant hormonal therapy with anastrozole 1 mg daily. She tolerated the initial infusion of Kadcyla with no adverse effects. She continued with cycle 2 on 01/24/2020, and she began chest wall radiation on 01/25/2020. Her 3rd cycle of Kadcyla was delayed due to neutropenia. Mrs. Zheng is here again today for follow-up. She is being considered for cycle 3 Kadcyla. She has been on hold due to blood counts. Her platelet count has been low as well as her neutrophils have been low. Her ANC on February 13 was 1.5 and then on 02/28/2020 they were 1800. Her platelet count that time was 68,000. Her last Kadcyla treatment was January 24, 2020. She states overall she feels pretty good. She is just wanting to proceed with the treatment if possible. She continues to have some weakness is difficult for her to get out of the house at times. She is still recovering from the radiation. She has had generalized weakness and requires assistance with ambulation. She is not driving herself yet either. She denies any new shortness of breath orthopnea. She has had no chest pain or palpitations. Denies any bowel or bladder concerns. She states overall she is feeling good except extremely tired and weak. She denies any fever chills or any signs of infection for at least the last 72 hours. Her ECOG is 2. Past Medical History: Anemia Diverticulosis History of uterine cancer Hypertension Hypothyroidism Past Surgical History: Hernia repair Tubal ligation Mastectomy in 2019 - double mastectomy Hysterectomy/bilateral salpingo-oophorectomy in 2014 Allergies: No Known Allergies. Medications: Aleve 1 Tablet (of 220 mg) Tablet Oral PRN Aspirin 1 Tablet (of 81 mg) Oral daily Imodium A-D 2 Tablet (of 2 mg) Oral b.i.d. PRN Lasix 1 Tablet (of 40 mg) Oral daily PRN Levothyroxine Sodium 1 (112 mcg) Tablet Oral daily LORazepam 0.5 - 1 Tablet (of 1 mg) Oral t.i.d. PRN Magnesium 1 Tablet Oral b.i.d. Potassium Chloride ER 1 Tablet (of 10 meq) Tablet, controlled release Oral daily Prochlorperazine Maleate 1 Tablet (of 10 mg) Oral q 4 hours PRN Family History: Ms. Zheng's mother at age 84: cancer of unknown primary. Ms. Zheng's father at age 80: congestive heart failure. Ms. Zheng has 3 brothers: 3 . She has 4 sisters: 2 alive, 2 . Ms. Zheng's first sister's breast cancer. Father during surgery for cerebral aneurysm. Mother had lung cancer and breast cancer, and a sister has been treated for breast cancer. A sister of stroke associated with cerebral aneurysm. She had 3 brothers, all of whom also are . Social History: Ms. 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 Ms. Zheng quit smoking 4 years ago but had smoked 1.5 packs/day for 50 years. She is an active drinker.She consumes 6 drinks/day 7 days/week. 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 She has a history of smoking 1-2 packs of cigarettes daily for 50 years. She quit smoking in 2014. She has daily alcohol use of at least a 6-pack of beer daily. she hasn't drank in town. Review Of Symptoms: Constitutional Denies fevers, chills, night sweats. Allergic/Immunologic No reactions. Eyes Denies significant visual changes. No diplopia. No amaurosis. ENMT Denies changes in hearing, sore throat, mouth sores, difficulty or changes in swallowing ability, and/or sinus drainage. Endocrine No diabetes, thyroid disease or hormone replacement. Denies hot flashes or night sweats. Hematologic/Lymphatic Denies easy bruising or bleeding. The patient denies any tender or palpable lymph nodes. Breasts No current concerns. Respiratory Denies dyspnea on exertion, chest pain, cough or hemoptysis. Denies orthopnea. Cardiovascular Denies anginal chest pain, palpitations or orthopnea. Gastrointestinal Denies nausea, vomiting, GI bleeding, or constipation. Denies change in bowel habits and/or stool color, no heartburn or early satiety. She denies diarrhea. Genitourinary (F) No hematuria, hesitancy, incontinence, vaginal bleeding, discharge or other problems with urination. Musculoskeletal Denies joint pain, swelling or redness. No decreased range of motion. Integumentary Denies chronic rashes, inflammation, ulcerations or skin changes. Neurologic Denies headache, blurred vision, and no areas of focal weakness or numbness. Normal-assisted gait. No increase in neuropathy symptoms. Maybe some better . Psychiatric Denies insomnia, depression, kat or mood swings. Vital Signs: Performed on March 14, 2020 14:29 Height - 66.00 in Weight - 175.2 lbs (LOW) BSA - 1.89 sq.m BMI - 28.28 Temperature - 97.4 F (LOW) Pulse - 103 /min (HIGH) Respiration - 22 /min BP - 104/66 mm(hg) O2 Sat - 93 % (LOW) Pain - 0,2 - Ambulatory/capable of all self-care, unable to perform any work activities. Up and about more than 50% of waking hours. (ECOG) Physical Examination: Constitutional Alert, oriented, no acute distress. Skin pink, warm and dry. Head Normocephalic; atraumatic. Eyes Conjunctivae and sclerae are clear and without icterus. Pupils are reactive and equal. ENMT No oral exudates, ulcers, masses, thrush or mucositis. Oropharynx clear. Tongue normal. Neck Supple without masses or thyromegaly. No jugular venous distension. Hematologic/Lymphatic No petechiae or purpura. No tender or palpable lymph nodes in the cervical or supraclavicular areas. Respiratory Lungs are clear to auscultation without rhonchi or wheezing. Cardiovascular Regular rate and rhythm of heart without murmurs,clicks, gallops or rubs. Chest Chest wall slightly pink from radiation field, but no peeling or exudate noted. Breasts Bilateral mastectomy incisions healing well. She still has some nataly left on the incision, but no signs of infection, evisceration or drainage. She has slight seroma underneath the right incision site but it is not warm or red. Abdomen Non-tender, non-distended, no masses, ascites. Good bowel sounds noted in all quads. No guarding or rebound tenderness. No pulsatile masses. Back/Spine Non-tender to palpation. Extremities No visible deformities, no cyanosis, clubbing or edema. Musculoskeletal No tenderness or swelling, normal range of motion without obvious weakness. Integumentary No rashes or lesions. Neurologic No sensory or motor deficits, normal cerebellar function, assisted gait with walker-yolette for her. Psychiatric Alert and oriented times three. Coherent speech. Verbalizes understanding of our discussions today. Laboratory:Test performed on March 14, 2020 13:16 Sodium 134 mmol/L Potassium 3.7 mmol/L Chloride 98 mmol/L CO2 24 mmol/L Anion Gap 15.7 BUN 23 mg/dL Creatinine 0.8 mg/dL Cr Clearance (Est) 87.1700 mL/min eGFR 71.5 mL/min Glucose 131 mg/dL Calcium 10.3 mg/dL Protein, Total 7.3 g/dL Albumin 3.6 g/dL Globulin 3.7 g/dL Bilirubin, Total 0.6 mg/dL ALT (SGPT) 22 U/L AST (SGOT) 36 U/L Alkaline Phosphatase 161 IU/L WBC 3.6 10 3/uL RBC 4.02 10 6/uL HGB 13.4 g/dL HCT 39.8 % MCV 99.0 fL MCH 33.3 pg MCHC 33.7 g/dL RDW 14.8 % Platelet Count 68 10 3/cmm MPV 11.2 fL Neutrophils 2.1 10 3/uL Lymphocytes 0.3 10 3/uL Monocytes 0.7 10 3/uL Eosinophils 0.5 10 3/uL Basophils 0.1 10 3/uL Neutrophil % 58.5 % Lymphocyte % 7.8 % Monocyte % 18.1 % Eosinophil % 13.1 % Basophils % 1.9 % Impression: 1. Patient with bilateral invasive breast cancer, both locally advanced. The right breast cancer was grade 1 infiltrating ductal carcinoma, post treatment stage IIA (ypT1c, ypN2a, M0), ER/WI positive and HER-2/bernadine negative. The left breast cancer was grade 3 infiltrating ductal carcinoma, post treatment stage at least IB (ypT2, ypN2a, M0), ER/WI positive and HER-2/bernadine positive. 2. She underwent bilateral ultrasound directed breast biopsies on 04/06/2019, and she underwent ultrasound directed needle biopsy of a right axillary lymph node on 05/19/2019. 3. She was given neoadjuvant chemotherapy with TCH-P, cycle 1 beginning on 06/02/2019. She experienced multiple toxicities including diarrhea and neuropathy, severe enough to require modifications in her treatment. The chemotherapy was stopped after 4 cycles due to toxicity. 4. As of 11/01/2019 she resumed treatment with single agent Herceptin at a 3-week dosing interval. 5. On 11/17/2019 she underwent bilateral modified radical mastectomies. Her other medical illnesses include: 6. Hypertension. 7. Hypothyroidism. 8. She has a history of endometrial cancer for which she underwent hysterectomy/bilateral salpingo-oophorectomy and postoperative HDR implant radiation in 2014. On 11/22/2019 she continued with cycle 2 of single agent Herceptin. She tolerated it well. She has had very gradual recovery from the chemotherapy-related toxicities. She continues to show improvement in her leg weakness and performance status. As of 01/03/2020 her systemic adjuvant therapy was changed from single agent Herceptin to Kadcyla at 3.6 mg/kg by IV infusion every 3 weeks. At that time she also started adjuvant hormonal therapy with anastrozole 1 mg daily. She completed 2 cycles of Kadcyla with no adverse effects. She was then seen by the radiation oncologist and she began prophylactic chest wall radiation. Her 3rd cycle of Kadcyla was delayed due to neutropenia.Her ANC is slowly recovering but now she has thrombocytopenia with a platelet count of 68,000. I did talk to the radiation therapist and she had a pretty significant chest wall/bone involvement with her radiation. Plan: 1. Her Kadcyla will remain on hold due to the neutropenia and thrombocytopenia. 2. continue adjuvant hormonal therapy with anastrozole 1 mg daily. 3. Labs from today were reviewed in detail and discussed with Ms. Zheng and a copy was given to her white count 3.6, hemoglobin 13.4, platelets 68,000 ANC is 2100. Potassium 3.7 random glucose is 131. LFTs are normal' creatinine was 0.8 and her alk phos is 161- presumably from radiation. her weight is stable and her blood pressure is stable today. We will plan to give her another 2-week break. I have asked that she have CBC CMP prior to her visit in 2 weeks and this would need to be in-home labs if at all possible as she has homebound status. It is extremely difficult for her to get out and have her labs drawn- some times to the point that she does not have them drawn and we do not have them for her visit or we have to wait for them when she does get here. She relies on family to transport her to her appointments and sometimes that is not reliable. 4. Ms. Zheng instructed to call us in the interim should she have questions or problems arise. She has no questions at this time. We discussed that the additional 2 weeks will hopefully allow her to recover from the thrombocytopenia. The neutropenia is slowly recovering. I suspect between the chemotherapy and her chest wall radiation we will see improvement in 2 weeks. Signed By: Christopher Katz-, AOCNP Tab Rascon MD <<Signature on File>>
[2020-03-23] MEDS: sodium chloride 0.9% 1,000 ML 999 ML IV (10:00)
== END 2020-03-25 23:59 | disposition home or self-care (01) ==
LOC: ONCMED 06:46
PROVIDERS: Nurse Practitioner; PCP Nurse Practitioner Family; Visit Provider Internal Medicine Medical Oncology
DX: Z51.0 Encounter for antineoplastic radiation therapy (principal); C50.812 Malignant neoplasm of overlapping sites of left female breast; C50.811 Malignant neoplasm of overlapping sites of right female breast; Z17.0 Estrogen receptor positive status [ER+]; L58.0 Acute radiodermatitis; Y84.2 Radiological procedure and radiotherapy as the cause of abnormal reaction of the patient, or of later complication, without mention of misadventure at the time of the procedure; D70.1 Agranulocytosis secondary to cancer chemotherapy; T45.1X5A Adverse effect of antineoplastic and immunosuppressive drugs, initial encounter; I10 Essential (primary) hypertension; E03.9 Hypothyroidism, unspecified; Z79.811 Long term (current) use of aromatase inhibitors; Z87.891 Personal history of nicotine dependence; Z90.13 Acquired absence of bilateral breasts and nipples; Z85.42 Personal history of malignant neoplasm of other parts of uterus; Z90.710 Acquired absence of both cervix and uterus; Z79.899 Other long term (current) drug therapy
CPT/HCPCS: 36415; 77336; 77386; 77412; 80053; 85025; 96360; 99214; J7030

== ENCOUNTER 2020-04-09 13:35 | Outpatient (CLI) | payer MEDICARE, OTHER, SELFPAY ==
--- NOTE | 2020-04-09 13:45 | CT_ITS ---
WS: [id number] CTA OF THE CHEST WITH PULMONARY EMBOLISM PROTOCOL TECHNIQUE: High-resolution contrast enhanced CTA of the chest with coronal and sagittal reformatted i tan with pulmonary embolism protocol. MIP images are also reviewed. CLINICAL INFORMATION: BILATERAL BREAST CANCER, SHORTNESS OF BREATH, COUGH COMPARISON: CTA chest September 21, 2019 DLP: 741.[address] scans at [facility] use at least one of these dose optimization techniques: automat ed exposure control; mA and/or kV adjustment per patient size (includes targeted exams where dose is matched to clinical indication); or iterative reconstruction. FINDINGS: Again seen is moderate dilatation of the main pulmonary artery trunk. Aneurysmal dilatation measures approximately 5.4 cm in maximum transverse dimension unchanged. Stable mild dilatation of the main pu lmonary arteries. Normal segmental and subsegmental pulmonary arteries. No filling defects to indicat e pulmonary embolus. Normal caliber thoracic aorta. Mild aortic calcification. No mediastinal or tereso r lymphadenopathy. Small pericardial effusion. Moderate chronic emphysematous changes. A few calcified granulomas. Small right pleural effusion is n ew from previous. Pleural thickening with patchy airspace infiltrates in the mid and upper lungs ante riorly. Recommend correlation for pneumonitis. This may be due to radiation pneumonitis. Airspace inf iltrate along the right upper lobe bronchus. Small amount of pleural fluid along the right fissure. T he visualized thoracic spine appears normal. Again seen is contrast reflux into the IVC. This can be seen with tricuspid regurgitation. Left Port -A-Cath. Adrenal glands are normal. Splenic granulomas. CT/CT angio chest PE protcl [id number] IMPRESSION: 1. Dilatation of the main pulmonary artery trunk measuring 5.4 cm in transvers e dimension is unchanged. 2. No evidence of pulmonary embolus. 3. Small right pleural effusion and small pericardial effusion are new from pr evious. 4. Fibrotic appearing airspace infiltrates in the mid and upper lungs anterior ly are new from previous and may be due to radiation pneumonitis. Additional ai rspace infiltrates along the right upper lobe bronchus. 5. No other significant changes.
[2020-04-09] MEDS: iohexol 350 mg/mL 100 mL Btl IV (14:18)
== END 2020-04-09 13:36 | disposition home or self-care (01) ==
LOC: RADWPI 13:36
PROVIDERS: PCP Nurse Practitioner Family; Visit Provider Nurse Practitioner
DX: C50.811 Malignant neoplasm of overlapping sites of right female breast (principal); C50.812 Malignant neoplasm of overlapping sites of left female breast; R06.02 Shortness of breath; R05 Cough; I28.1 Aneurysm of pulmonary artery; J90 Pleural effusion, not elsewhere classified; R91.8 Other nonspecific abnormal finding of lung field
CPT/HCPCS: 71275; Q9967

== ENCOUNTER 2020-04-17 06:49 | Outpatient (RCR) | payer MEDICARE, OTHER, SELFPAY ==
[2020-03-26 12:35] LABS: Basophils # 0.1 10^3/uL (0.0-0.1); Basophils % 1.4 %; Eosinophils # 0.7 10^3/uL (0.0-0.8); Eosinophils % 20.2 %; Hematocrit 40.6 % (37.0-47.0); Hemoglobin 13.5 g/dL (11.5-15.3); Lymphocytes # 0.4 10^3/uL (0.8-4.8); Mean Corpuscular HGB Conc 33.3 g/dL (30.0-36.0); Mean Corpuscular Volume 102.3 fL (81-99); Mean Platelet Volume 11.9 fL (7.4-10.4); Monocytes # 0.4 10^3/uL (0.2-0.9); Monocytes % 11.5 %; Neutrophils % 55.3 %; Nucleated Red Blood Cells % 0 %; Platelet Count 68 10^3/cmm (130-400); Red Blood Count 3.97 10^6/uL (4.1-5.3); Red Cell Distribution Width 16.1 % (12.1-15.1); White Blood Count 3.6 10^3/uL (4.0-10.0)
[2020-03-26 12:50] LABS: Alanine Aminotransferase 21 U/L (0-33); Alkaline Phosphatase 122 IU/L (35-105); Anion Gap 15.6 (5-19); Aspartate Amino Transferase 35 U/L (0-32); Blood Urea Nitrogen 19 mg/dL (8-23); Calcium 9.3 mg/dL (8.5-10.5); Carbon Dioxide 25 mmol/L (22-29); Chloride 100 mmol/L (98-107); Globulin 2.9 g/dL (1.3-4.6); Glomerular Filtration Rate 62.5 mL/min (90-130); Glucose 128 mg/dL (65-115); Osmolality Calculated 282 mOsm/kg (285-295); Potassium 3.6 mmol/L (3.5-5.1); Sodium 137 mmol/L (136-145); Total Bilirubin 0.7 mg/dL (0.15-1.2); Total Protein 5.9 g/dL (6.6-8.7)
--- NOTE | 2020-03-27 11:35 | ONC FU_ITS ---
[facility] Patient Note Patient: Bee Zheng Unit #: [id number]: [id number] Dictated By: Christopher KatzDate of Visit: Mar 27, 2020 Onc MED Telephone Note Ms. Zheng called in this morning with complaints of sinus/upper respiratory infection. She has a productive cough that is pretty nasty looking and greenish-brown sputum. She states she has had occasional chills but no fever. She has also required hydration last Thursday. She states that she does not feel she needs hydration today. She was due for Kadcyla today but her platelet count yesterday was 60,000 so she will be postponed again. I have called her in [facility] for her upper respiratory infection and will see how she does in feels in 1 week. I have asked that she return with a CBC CMP the day before her appointment and plan to see her back in 1 week. She was instructed to contact us in the interim should questions or problems arise. Signed By: Christopher Katz-KIAH LAMP <<Signature on File>>
[2020-03-29] MEDS: sodium chloride 0.9% 1,000 ML 999 ML IV (13:16)
[2020-04-02 16:07] LABS: Basophils # 0.1 10^3/uL (0.0-0.1); Basophils % 0.8 %; Eosinophils # 1.4 10^3/uL (0.0-0.8); Eosinophils % 21.6 %; Hemoglobin 15.5 g/dL (11.5-15.3); Lymphocytes # 0.6 10^3/uL (0.8-4.8); Mean Corpuscular HGB Conc 32.3 g/dL (30.0-36.0); Mean Corpuscular Hemoglobin 33.6 pg (28.0-34.0); Mean Corpuscular Volume 104.1 fL (81-99); Mean Platelet Volume 12.8 fL (7.4-10.4); Monocytes # 0.5 10^3/uL (0.2-0.9); Monocytes % 7.2 %; Neutrophils # 3.8 10^3/uL (1.8-7.7); Neutrophils % 60.1 %; Nucleated Red Blood Cells % 0 %; Platelet Count 64 10^3/cmm (130-400); Red Blood Count 4.61 10^6/uL (4.1-5.3); White Blood Count 6.4 10^3/uL (4.0-10.0)
[2020-04-02 16:43] LABS: Alanine Aminotransferase 23 U/L (0-33); Albumin Level 2.8 g/dL (3.5-5.2); Alkaline Phosphatase 121 IU/L (35-105); Anion Gap 19.9 (5-19); Aspartate Amino Transferase 35 U/L (0-32); Blood Urea Nitrogen 27 mg/dL (8-23); Calcium 9.8 mg/dL (8.5-10.5); Carbon Dioxide 23 mmol/L (22-29); Chloride 99 mmol/L (98-107); Globulin 3.2 g/dL (1.3-4.6); Glomerular Filtration Rate 49.5 mL/min (90-130); Glucose 133 mg/dL (65-115); Osmolality Calculated 285 mOsm/kg (285-295); Potassium 3.9 mmol/L (3.5-5.1); Sodium 138 mmol/L (136-145); Total Bilirubin 0.9 mg/dL (0.15-1.2)
[2020-04-03] MEDS: sodium chloride 0.9% 1,000 ML 999 ML IV (13:54)
[2020-04-03] MEDS: fluconazole premix 100 MG in empty flexible container 1 EACH 50 MG IV (14:02)
--- NOTE | 2020-04-07 14:48 | ONC FU_ITS ---
[facility] Patient Note Patient: Bee Zheng Unit #: [id number]: 1950 Dictated By: Christopher KatzDate of Visit: Apr 03, 2020 Onc MED Follow-Up/Prog Note Chief Complaint: Bilateral breast cancer. History of Present Illness: Ms Zheng is a 69 year-old woman with bilateral invasive breast cancer, both locally advanced. The right breast was grade 1 infiltrating ductal carcinoma, post treatment stage IIA (ypT1c, ypN2a, M0), ER/GA positive and HER-2/bernadine negative. The left breast cancer was grade 3 infiltrating ductal carcinoma, post treatment stage at least IB (ypT2, ypN2a, M0), ER/GA positive and HER-2/bernadine positive. She had presented with gradually worsening swelling and firmness in her breasts after she had sustained a chest injury in a fall about 9 months ago. Bilateral mammograms on 03/23/2019 were BI-RADS 5, highly suggestive of malignancy. Findings included areas of dense asymmetry in the central right breast measuring 3.5 cm and in the central left breast measuring 4.5 by 3.9 cm. The right breast ultrasound showed an irregular hypoechoic mass at 12:00, middle depth, measuring 3.5 x 2.2 cm. Also noted was eccentric thickening of a lymph node in the right axilla. The left breast ultrasound showed a large amount of shadowing within the central breast mass containing calcifications at 12:00, measuring 4.6 x 3.7 cm. There were small benign-appearing lymph nodes on the left. She underwent bilateral ultrasound-guided biopsies on 04/06/2019. The left breast showed grade 3 infiltrating ductal carcinoma with a minor DCIS component. The breast prognostic profile showed ER positive at 87% and GA positive at 72%. There was overexpression of HER-2/bernadine, 3+ by IHC and amplification ratio by FISH of 2.3 with 7.0 HER-2 copies/cell. The Ki-67 was unfavorable at 22%. The right breast showed grade 2 infiltrating ductal carcinoma. A subsequent prognostic profile on the right breast biopsy showed ER positive at 87% and GA positive at 21%. That tumor was negative for overexpression of HER-2/bernadine, 1+ by IHC and amplification ratio by FISH of 1.0 with 2.4 HER-2 copies/cell. Staging PET/CT on 05/07/2019 showed FDG avid right breast lesion measuring 2.1 cm, SUV 13.7, and a solitary hypermetabolic right axillary lymph node with SUV 5.3, consistent with local metastatic disease. Other right axillary lymph nodes were too small to characterize by PET. The left breast showed 2 nearly contiguous lesions, the more dominant measuring 2.5 x 3.8 cm with SUV 8.3. The more inferior and lateral lesion measured 1.3 x 1.5 cm with SUV 11.7. Left axillary lymph nodes were too small to characterize by PET. There were no areas of uptake to suggest any other metastatic disease. A needle biopsy of the right axillary lymph node on 05/19/2019 showed metastatic carcinoma most consistent with breast primary. Given those findings and with HER-2/bernadine positive disease in the left breast, she was recommended to undergo neoadjuvant chemotherapy with TCH-P. On 06/02/2019 she began cycle 1 of neoadjuvant chemotherapy with TCH-P. She tolerated the treatment without acute toxicity. She subsequently developed pretty severe diarrhea, beginning around a 3 or 4. It lasted for 2 weeks. She continued with cycle 2 on 06/28/2019. That treatment was complicated by a pretty severe skin eruption, and she continued to have diarrhea. With cycle 3 on 07/26/2019 I did opt to omit the docetaxel. With had cycle there was no recurrence of skin eruption, but she continued to have severe diarrhea. With cycle 4, on 08/23/2019, Dr Rascon opted to admit the Perjeta and replace the taxane portion of her chemotherapy with Abraxane. On 08/29/2019 she was admitted to the hospital with severe pancytopenia. She continued to have diarrhea and she also developed significant liver dysfunction. She required transfusion of PRBC and platelets. She had uneventful recovery of her white blood cell count, but she continued to have severe thrombocytopenia at discharge, requiring additional outpatient platelet pheresis. Dr Rascon had seen her for a follow-up visit on 09/20/2019. Given the multiple toxicities she had experienced, it was opted to not attempt any further chemotherapy. A restaging PET/CT on 09/24/2019 showed primary right breast carcinoma measuring 1.6 cm with SUV 4.6, significantly improved from the prior study. The solitary right axillary lymph node had resolved. The nearly contiguous left breast lesions were reported to have SUV of 3.1, also representing a significant response to therapy. At her follow-up visit on 10/25/2019 she still had very limited activity, and she also continued to have significant lower extremity edema. At that point her treatment remained on hold. Her medical history is otherwise significant in that she had presented in 2014 anemia, severe enough to require transfusion. This was ultimately determined to be due to endometrial cancer, for which she underwent hysterectomy/bilateral salpingo-oophorectomy. Those records are not available at this time. She indicates that there was no lymph node involvement. She apparently did receive postoperative radiation with HDR implant. There has been no evidence of recurrence of the endometrial cancer. Her other medical illnesses include hypertension and hypothyroidism. She has a history of smoking 1-2 packs of cigarettes daily for 50 years. She quit smoking in 2014. She has alcohol use of at least a 6-pack of beer daily. INTERIM HISTORY: At her follow-up visit on 11/01/2019 she had recovered sufficiently to resume treatment with single agent Herceptin at a 3-week dosing schedule. She tolerated it without significant toxicity. On 11/17/2019 she underwent bilateral modified radical mastectomies. Pathology on the left breast showed grade 2 invasive ductal carcinoma, multifocal, with the largest focus measuring 2.8 cm in maximum diameter. There was invasion into the dermis, but without skin ulceration. There was a small component of nuclear grade 1 ductal carcinoma in situ. The margins were negative. There was involvement in 6 of 8 axillary lymph nodes with the largest metastatic deposit measuring 6 mm. Pathologic staging was ypT2, ypN2a. The right breast showed grade 1 invasive ductal carcinoma measuring 1.3 cm in maximum diameter. There was an extensive component of nuclear grade 2 intraductal cancer, estimated at 13 mm. The margins were uninvolved. There was involvement in 8 of 8 axillary lymph nodes with the largest metastatic deposit measuring 5 mm. Pathologic staging was ypT1c, ypN2a. She had no complications with the surgery. She was able to continue single agent Herceptin at the 3- week dosing schedue. As of 12/13/2019 she had received her 3rd cycle. During that time she did show gradual improvement in her neuropathy and performance status. As of her visit on 01/03/2020, Dr Rascon opted to change her systemic therapy to Kadcyla at 3.6 mg/kg by IV infusion. At that time, she also began adjuvant hormonal therapy with anastrozole 1 mg daily. She tolerated the initial infusion of Kadcyla with no adverse effects. She continued with cycle 2 on 01/24/2020, and she began chest wall radiation on 01/25/2020. Her 3rd cycle of Kadcyla was delayed due to neutropenia. Mrs. Zheng is heretoday for follow-up. Her Kadcyla has been on hold due to blood counts. Her platelet count has been low as well as her neutrophils have been low. Her ANC on April 02 was recovered at 3800 however her platelet count is 64,000. Her last Kadcyla treatment was January 24, 2020. I spoke with Mrs. Zheng last night in regards to her blood counts to let her know that we would not plan on giving her chemotherapy today however she was having some mouth sores . She states she had some rash on her abdomen. She states she is just feeling washed out. I did request that she go ahead and come in until he could see her rash as well as her mouth. She has been getting intermittent hydration and tolerating this well. She states that she has been eating relatively good but has been draggy off and on. She states she is discounted washed out . She denies any fever or chills. She states mouth sores have been there for 2 to 3 days. She has started using some baking soda salt water and thinks this may be helping some. She states she is unsure what caused the rash on her abdomen. She states it has been itchy. She has been using Benadryl cream and oral which is relieving the itching. He states the rash is getting some better. She states it has not had any blisters or had any pain. She denies any shortness of breath orthopnea. She denies chest pain or palpitations. She states her bowels are normal for her. She denies any bladder concerns. She is had no lower extremity edema. Her ECOG is 2. Past Medical History: Anemia Diverticulosis History of uterine cancer Hypertension Hypothyroidism Past Surgical History: Hernia repair Tubal ligation Mastectomy in 2019 - double mastectomy Hysterectomy/bilateral salpingo-oophorectomy in 2014 Allergies: No Known Allergies. Medications: Aleve 1 Tablet (of 220 mg) Tablet Oral PRN Aspirin 1 Tablet (of 81 mg) Oral daily Imodium A-D 2 Tablet (of 2 mg) Oral b.i.d. PRN Lasix 1 Tablet (of 40 mg) Oral daily PRN Levothyroxine Sodium 1 (112 mcg) Tablet Oral daily LORazepam 0.5 - 1 Tablet (of 1 mg) Oral t.i.d. PRN Magnesium 1 Tablet Oral b.i.d. Potassium Chloride ER 1 Tablet (of 10 meq) Tablet, controlled release Oral daily Prochlorperazine Maleate 1 Tablet (of 10 mg) Oral q 4 hours PRN Family History: Ms. Zheng's mother at age 84: cancer of unknown primary. Ms. Zheng's father at age 80: congestive heart failure. Ms. Zheng has 3 brothers: 3 . She has 4 sisters: 2 alive, 2 . Ms. Zheng's first sister's breast cancer. Father during surgery for cerebral aneurysm. Mother had lung cancer and breast cancer, and a sister has been treated for breast cancer. A sister of stroke associated with cerebral aneurysm. She had 3 brothers, all of whom also are . 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 Ms. Zheng quit smoking 4 years ago but had smoked 1.5 packs/day for 50 years. She is an active drinker.She consumes 6 drinks/day 7 days/week. She has a history of smoking 1-2 packs of cigarettes daily for 50 years. She quit smoking in 2014. She has daily alcohol use of at least a 6-pack of beer daily. Review Of Symptoms: Constitutional Denies fevers, chills, night sweats. Allergic/Immunologic No reactions. Eyes Denies significant visual changes. No diplopia. No amaurosis. ENMT Denies changes in hearing, sore throat, difficulty or changes in swallowing ability, and/or sinus drainage. She states her mouth is tender and has been over the last 3 to 4 days but thinks it is some better today. She states her lips have been peeling some as well. Hematologic/Lymphatic Denies easy bruising or bleeding. The patient denies any tender or palpable lymph nodes. Breasts No current concerns. Respiratory Denies dyspnea on exertion, chest pain, cough or hemoptysis. Denies orthopnea. Cardiovascular Denies anginal chest pain, palpitations or orthopnea. Gastrointestinal Denies nausea, vomiting, GI bleeding, or constipation. Denies change in bowel habits and/or stool color, no heartburn or early satiety. She denies diarrhea. Genitourinary (F) No hematuria, hesitancy, incontinence, vaginal bleeding, discharge or other problems with urination. Musculoskeletal Denies joint pain, swelling or redness. No decreased range of motion. Integumentary Denies chronic rashes, inflammation, ulcerations. She states she has had a rash on her abdomen for 2 to 3 days and unsure what it is. Is not been blistery or raised. Is just been red she states it has been itchy off and on but Benadryl is relieving this. She thinks it is some better today. Neurologic Denies headache, blurred vision, and no areas of focal weakness or numbness. Normal-assisted gait. No increase in neuropathy symptoms. Maybe some better . Psychiatric Denies insomnia, depression, kat or mood swings. Vital Signs: Performed on Apr 03, 2020 13:09 Height - 66.00 in Weight - 178 lbs (HIGH) BSA - 1.90 sq.m BMI - 28.73 Temperature - 98.3 F (LOW) Pulse - 71 /min Respiration - 18 /min BP - 114/89 mm(hg) O2 Sat - 98 % Pain - 0,2 - Ambulatory/capable of all self-care, unable to perform any work activities. Up and about more than 50% of waking hours. (ECOG) Physical Examination: Constitutional Alert, oriented, no acute distress. Skin pink, warm and dry. Head Normocephalic; atraumatic. Eyes Conjunctivae and sclerae are clear and without icterus. Pupils are reactive and equal. ENMT No oral exudates, ulcers, masses, thrush or mucositis. Oropharynx clear. Tongue normal. Her mouth has white appearance on her tongue. I see no active lesions or skin peeling inside the mouth. She does have slight peeling of the lips. There is no exudate in regard to that. She has no lesions on the outside of the lip currently. Neck Supple without masses or thyromegaly. No jugular venous distension. Hematologic/Lymphatic No petechiae or purpura. No tender or palpable lymph nodes in the cervical or supraclavicular areas. Respiratory Lungs are clear to auscultation without rhonchi or wheezing. Cardiovascular Regular rate and rhythm of heart without murmurs,clicks, gallops or rubs. Chest Chest wall slightly pink from radiation field, but no peeling or exudate noted. Abdomen Non-tender, non-distended, no masses, ascites. Good bowel sounds noted in all quads. No guarding or rebound tenderness. No pulsatile masses. Back/Spine Non-tender to palpation. Extremities No visible deformities, no cyanosis, clubbing or edema. Musculoskeletal No tenderness or swelling, normal range of motion without obvious weakness. Integumentary No rashes or lesions. Neurologic No sensory or motor deficits, normal cerebellar function, normal slow gait today. Psychiatric Alert and oriented times three. Coherent speech. Verbalizes understanding of our discussions today. Laboratory:Test performed on Apr 02, 2020 13:40 WBC 6.4 10 3/uL RBC 4.61 10 6/uL HGB 15.5 g/dL HCT 48.0 % MCV 104.1 fL MCH 33.6 pg MCHC 32.3 g/dL RDW 18.0 % Platelet Count 64 10 3/cmm MPV 12.8 fL Neutrophils 3.8 10 3/uL Lymphocytes 0.6 10 3/uL Monocytes 0.5 10 3/uL Eosinophils 1.4 10 3/uL Basophils 0.1 10 3/uL Neutrophil % 60.1 % Lymphocyte % 10.0 % Monocyte % 7.2 % Eosinophil % 21.6 % Basophils % 0.8 % NRBC % 0 % Test performed on Mar 26, 2020 11:40 Sodium 137 mmol/L Potassium 3.6 mmol/L Chloride 100 mmol/L CO2 25 mmol/L Anion Gap 15.6 BUN 19 mg/dL Creatinine 0.9 mg/dL Cr Clearance (Est) 77.4900 mL/min eGFR 62.5 mL/min Glucose 128 mg/dL Calcium 9.3 mg/dL Protein, Total 5.9 g/dL Albumin 3.0 g/dL Globulin 2.9 g/dL Bilirubin, Total 0.7 mg/dL ALT (SGPT) 21 U/L AST (SGOT) 35 U/L Alkaline Phosphatase 122 IU/L Test performed on Dec 12, 2019 13:50 Magnesium 1.9 mg/dL Test performed on Oct 25, 2019 11:30 NT proBNP 5134 pg/mL T4, Free 1.92 ng/dL TSH 0.56 uIU/mL Vitamin B12 571 pg/mL Vitamin D (25-Hydroxy), Total 52 ng/mL Impression: 1. Patient with bilateral invasive breast cancer, both locally advanced. The right breast cancer was grade 1 infiltrating ductal carcinoma, post treatment stage IIA (ypT1c, ypN2a, M0), ER/GA positive and HER-2/bernadine negative. The left breast cancer was grade 3 infiltrating ductal carcinoma, post treatment stage at least IB (ypT2, ypN2a, M0), ER/GA positive and HER-2/bernadine positive. 2. She underwent bilateral ultrasound directed breast biopsies on 04/06/2019, and she underwent ultrasound directed needle biopsy of a right axillary lymph node on 05/19/2019. 3. She was given neoadjuvant chemotherapy with TCH-P, cycle 1 beginning on 06/02/2019. She experienced multiple toxicities including diarrhea and neuropathy, severe enough to require modifications in her treatment. The chemotherapy was stopped after 4 cycles due to toxicity. 4. As of 11/01/2019 she resumed treatment with single agent Herceptin at a 3-week dosing interval. 5. On 11/17/2019 she underwent bilateral modified radical mastectomies. Her other medical illnesses include: 6. Hypertension. 7. Hypothyroidism. 8. She has a history of endometrial cancer for which she underwent hysterectomy/bilateral salpingo-oophorectomy and postoperative HDR implant radiation in 2014. On 11/22/2019 she continued with cycle 2 of single agent Herceptin. She tolerated it well. She has had very gradual recovery from the chemotherapy-related toxicities. She continues to show improvement in her leg weakness and performance status. As of 01/03/2020 her systemic adjuvant therapy was changed from single agent Herceptin to Kadcyla at 3.6 mg/kg by IV infusion every 3 weeks. At that time she also started adjuvant hormonal therapy with anastrozole 1 mg daily. She completed 2 cycles of Kadcyla with no adverse effects. She was then seen by the radiation oncologist and she began prophylactic chest wall radiation. Her 3rd cycle of Kadcyla was delayed due to neutropenia.Her ANC is slowly recovering but now she has thrombocytopenia with a platelet count of 64,000. Plan: 1. Her Kadcyla will remain on hold due to the thrombocytopenia. 2. continue adjuvant hormonal therapy with anastrozole 1 mg daily. 3. Labs from today were reviewed in detail and discussed with Ms. Zheng and a copy was given to her white count 6.4, hemoglobin 15.5, platelets 64,000 ANC is 3800. Potassium 397 random glucose is 133. LFTs are normal. creatinine was 1.1 and her alk phos is 121. We will plan to give her another 2-week break. I have asked that she have CBC CMP prior to her visit in 2 weeks and this would need to be in-home labs if at all possible as she has homebound status. It is extremely difficult for her to get out and have her labs drawn- some times to the point that she does not have them drawn and we do not have them for her visit or we have to wait for them when she does get here. She relies on family to transport her to her appointments and sometimes that is not reliable. 4. Ms. Zheng instructed to call us in the interim should she have questions or problems arise. She has no questions at this time. We discussed that the additional 2 weeks will hopefully allow her to recover from the thrombocytopenia. The neutropenia has slowly recovered. 5. We did discuss calling in famciclovir for her mouth sores but she wanted to try the baking soda salt water first and promises to let us know if she has any further problems. 6. I did go ahead and give her fluconazole IV today as she does have a appearance of beginning thrush in her mouth. She did not want to take any oral antifungals at this time. 7. I have asked her to return in 1 week but this is more so to follow-up on her rash in her mouth and overall performance status rather than to presume she will be ready for chemotherapy again. If she is doing well and does not need hydration we can just wait and see her back in 2 weeks. Signed By: Siri Katz.P.-CAROLE, AOCNP Tab Rascon MD <<Signature on File>>
[2020-04-09 10:37] LABS: Basophils # 0.1 10^3/uL (0.0-0.1); Basophils % 2.1 %; Eosinophils # 0.5 10^3/uL (0.0-0.8); Eosinophils % 8.7 %; Hemoglobin 15.7 g/dL (11.5-15.3); Lymphocytes # 0.6 10^3/uL (0.8-4.8); Lymphocytes % 10.9 %; Mean Corpuscular HGB Conc 33.4 g/dL (30.0-36.0); Mean Corpuscular Hemoglobin 35.8 pg (28.0-34.0); Mean Corpuscular Volume 107.1 fL (81-99); Mean Platelet Volume 13.1 fL (7.4-10.4); Monocytes # 0.5 10^3/uL (0.2-0.9); Neutrophils # 3.7 10^3/uL (1.8-7.7); Neutrophils % 68.7 %; Nucleated Red Blood Cells % 0 %; Platelet Count 51 10^3/cmm (130-400); Red Blood Count 4.39 10^6/uL (4.1-5.3); Red Cell Distribution Width 19.6 % (12.1-15.1); White Blood Count 5.3 10^3/uL (4.0-10.0)
[2020-04-09 11:27] LABS: Alanine Aminotransferase 22 U/L (0-33); Alkaline Phosphatase 129 IU/L (35-105); Anion Gap 14.8 (5-19); Aspartate Amino Transferase 38 U/L (0-32); Blood Urea Nitrogen 15 mg/dL (8-23); Calcium 9.2 mg/dL (8.5-10.5); Carbon Dioxide 25 mmol/L (22-29); Chloride 104 mmol/L (98-107); Globulin 2.4 g/dL (1.3-4.6); Glomerular Filtration Rate 62.3 mL/min (90-130); Glucose 123 mg/dL (65-115); Osmolality Calculated 288 mOsm/kg (285-295); Potassium 3.8 mmol/L (3.5-5.1); Sodium 140 mmol/L (136-145); Total Protein 5.4 g/dL (6.6-8.7)
[2020-04-10] MEDS: sodium chloride 0.9% 1,000 ML 999 ML IV (14:48)
--- NOTE | 2020-04-10 17:18 | ONCRAD EPV_ITS ---
Radiation Oncology Established Patient Visit Patient: Page MR#: [id number] : 1950> Age: 70> Sex: Female> Dictated by: Dr. Miguel Casanova Date of Service: 04/10/2020 Referring Physician(s) : Dr. 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 ID: Chest A, Energy: 6X, Dose/Fx (cGy): 180, #Fx: , Dose Correction (cGy): 0, Total Dose (cGy): 5,040, Start Date: 01/25/2020, End Date: 03/06/2020, Elapsed Days: 41 Treatment Site: [id number], Ref. ID: Chest B, Energy: 6X, Dose/Fx (cGy): 180, #Fx: , Dose Correction (cGy): 0, Total Dose (cGy): 5,040, Start Date: 01/25/2020, End Date: 03/06/2020, Elapsed Days: 41 Treatment Site: [id number], Ref. ID: Chest C, Energy: 6X, Dose/Fx (cGy): 180, #Fx: 28, Dose Correction (cGy): 0, Total Dose (cGy): 5,040, Start Date: 01/25/2020, End Date: 03/06/2020, Elapsed Days: 41 Chief Complaint / History of PresentMsJeanine returns for follow-up. She completed bilateral chest wall as well as bilateral regional sis radiation including the internal mammary nodes on 03/06/2020. She received 5040 cGy in 28 fractions to all areas. She developed a quite substantial skin reaction and has been treating it with basic hygiene measures and Aquaphor. She states the skin is almost healed. Her general condition has been poor. About 2 weeks after completing radiation she developed worsening dyspnea. She experiences shortness of breath with almost any exertional activity. She has a mild dry cough with minimal clear sputum production. She denies having fever. She has had minimal change in her appetite but has had significant fatigue. She has received a course of antibiotics, but has not been on any steroids. She had a CT angio of the chest yesterday. Current Medications: Aleve, anastrozole, aspirin, dexamethasone, gabapentin, imodium A-D, kadcyla, lasix, lasix, levothyroxine Sodium, lORazepam, lORazepam, magnesium, magnesium Oxide, potassium Chloride ER, potassium Chloride ER, prochlorperazine Maleate, prochlorperazine Maleate. Allergies: Levaquin. Current Complaints / Review of Systems: Constitutional - Complains of moderate fatigue. Denies lack of appetite, fever and night sweats. Eyes - Denies blurred vision and double vision. ENMT - Complains of altered taste. Denies dysphagia, mouth dryness and stomatitis. Neck - Denies neck pain. Integumentary - Denies rash. Breasts - Denies pain. Cardiovascular - Complains of edema in both feet. Denies arrhythmias and chest pain. Respiratory - Complains of a mild cough which is non-productive. Complains of severe dyspnea associated with normal activity. Complains of wheezing. Gastrointestinal - Denies abdominal pain, constipation, diarrhea, heartburn / dyspepsia, melena / GI bleeding, nausea and vomiting. Genitourinary (F) - Denies dysuria, frequency, nocturia and urgency. Musculoskeletal - Complains of joint pain in both shoulders. Complains of generalized muscle weakness. Neurologic - Complains of headaches off and on. Denies dizziness. Endocrine - Complains of thyroid disease. Denies diabetes. Hematologic/Lymphatic - Denies tender or enlarged lymph nodes.. Vital Signs: Performed on 04/10/2020 1:22 PM BMI - 28.375 kg/m2 (high), Height - 66.00 in, Weight - 175.8 lbs, Temperature - 98.8 f, Pulse - 101, Respiration - 24, O2 Sat - 91 % (low), Pain - 5 and BP - 91/ 65 mm(hg). Physical Exam: General: Alert and oriented x 3. No acute distress. HEENT: Normocephalic, atraumatic. Extraocular Movements Intact: NECK: Supple without supraclavicular or jugular lymphadenopathy. No axillary nodes. LUNGS: Clear to auscultation bilaterally without rales, rhonchi or wheeze. HEART: Regular rate and rhythm, normal S1 and S2 without murmur, gallop or rub. Chest Wall: No evidence of lacal recurrence. There is an area on the right anterior chest wall that is about 2 cm in diameter. This area has healing desquamation. There is an excellent layer of new skin formed. All other areas of the chest wall and axilla show an intact covering of skin. There is no evidence of new lesions. EXTREMITIES: No lymphedema. NEUROLOGIC: Cranial nerves II ???XII are grossly intact. Normal sensation, strength 5/5 in all extremities, normal gait, no ataxia. Performance Status: 3 - Capable of only limited self-care, confined to bed or chair more than 50% of waking hours. (ECOG) Lab: None pending. Test performed on 10/25/2019 11:30 AM NT proBNP - 5134 pg/ml (high), T4, Free - 1.92 ng/dl (high), Test performed on 03/26/2020 11:40 AM eGFR - 62.5 ml/min (low), Glucose - 128 mg/dl (high), Protein, Total - 5.9 g/dl (low), Albumin - 3.0 g/dl (low), AST (SGOT) - 35 u/l (high), Alkaline Phosphatase - 122 iu/l (high), Test performed on 04/02/2020 1:40 PM HGB - 15.5 g/dl (high), HCT - 48.0 % (high), MCV - 104.1 fl (high), RDW - 18.0 % (high), Platelet Count - 64 10 3/cmm (low), MPV - 12.8 fl (high), Lymphocytes - 0.6 10 3/ul (low) and Eosinophils - 1.4 10 3/ul (high). Pathology: Primary, d70.1 - agranulocytosis secondary to cancer chemotherapy, Diagnosed 03/14/2020 (active), Primary, d69.59 - other secondary thrombocytopenia, Diagnosed 03/14/2020 (active), Primary, c50.812 - malignant neoplasm of overlapping sites of left female breast, Diagnosed 01/03/2020 (active) stage ib, t2, pn2a, m0, g2, her2 pos, er pos, pr p, Primary, c50.811 - malignant neoplasm of overlapping sites of right female breast, Diagnosed 01/03/2020 (active) stage ib, t1c, pn2a, m0, g1, her2 neg, er pos, pr, Primary, z17.0 - estrogen receptor positive status [er+], Diagnosed 06/23/2019 (active) and Secondary, z85.42 - personal history of malignant neoplasm of other parts of uterus, Diagnosed 05/05/2019 (active). Imaging: The CT angio of the chest 04/09/2020 was reviewed. As indicated by the radiologist in the formal report, there is evidence of bilateral radiation pneumonitis. The infiltrates are primarily just beneath the chest wall in the peripheral lung. No blood clots seen. Impression: No evidence of local or regional recurrence. The skin is healing extremely well. She has developed radiation pneumonitis. I will discuss placing her on oral steroids. Follow-up in 6 weeks. Signed by: 04/10/2020 5:17:14 PM <<Signature on File>> Time spent with patient: CPT Code: CPT Code:
--- NOTE | 2020-04-15 14:42 | ONC FU_ITS ---
[facility] Patient Note Patient: Bee Zheng Unit #: [id number]: 1950 Dictated By: Christopher KatzDate of Visit: Apr 10, 2020 Onc MED Follow-Up/Prog Note Chief Complaint: Bilateral breast cancer. History of Present Illness: Ms Zheng is a 69 year-old woman with bilateral invasive breast cancer, both locally advanced. The right breast was grade 1 infiltrating ductal carcinoma, post treatment stage IIA (ypT1c, ypN2a, M0), ER/WY positive and HER-2/bernadine negative. The left breast cancer was grade 3 infiltrating ductal carcinoma, post treatment stage at least IB (ypT2, ypN2a, M0), ER/WY positive and HER-2/bernadine positive. She had presented with gradually worsening swelling and firmness in her breasts after she had sustained a chest injury in a fall about 9 months ago. Bilateral mammograms on 03/23/2019 were BI-RADS 5, highly suggestive of malignancy. Findings included areas of dense asymmetry in the central right breast measuring 3.5 cm and in the central left breast measuring 4.5 by 3.9 cm. The right breast ultrasound showed an irregular hypoechoic mass at 12:00, middle depth, measuring 3.5 x 2.2 cm. Also noted was eccentric thickening of a lymph node in the right axilla. The left breast ultrasound showed a large amount of shadowing within the central breast mass containing calcifications at 12:00, measuring 4.6 x 3.7 cm. There were small benign-appearing lymph nodes on the left. She underwent bilateral ultrasound-guided biopsies on 04/06/2019. The left breast showed grade 3 infiltrating ductal carcinoma with a minor DCIS component. The breast prognostic profile showed ER positive at 87% and WY positive at 72%. There was overexpression of HER-2/bernadine, 3+ by IHC and amplification ratio by FISH of 2.3 with 7.0 HER-2 copies/cell. The Ki-67 was unfavorable at 22%. The right breast showed grade 2 infiltrating ductal carcinoma. A subsequent prognostic profile on the right breast biopsy showed ER positive at 87% and WY positive at 21%. That tumor was negative for overexpression of HER-2/bernadine, 1+ by IHC and amplification ratio by FISH of 1.0 with 2.4 HER-2 copies/cell. Staging PET/CT on 05/07/2019 showed FDG avid right breast lesion measuring 2.1 cm, SUV 13.7, and a solitary hypermetabolic right axillary lymph node with SUV 5.3, consistent with local metastatic disease. Other right axillary lymph nodes were too small to characterize by PET. The left breast showed 2 nearly contiguous lesions, the more dominant measuring 2.5 x 3.8 cm with SUV 8.3. The more inferior and lateral lesion measured 1.3 x 1.5 cm with SUV 11.7. Left axillary lymph nodes were too small to characterize by PET. There were no areas of uptake to suggest any other metastatic disease. A needle biopsy of the right axillary lymph node on 05/19/2019 showed metastatic carcinoma most consistent with breast primary. Given those findings and with HER-2/bernadine positive disease in the left breast, she was recommended to undergo neoadjuvant chemotherapy with TCH-P. On 06/02/2019 she began cycle 1 of neoadjuvant chemotherapy with TCH-P. She tolerated the treatment without acute toxicity. She subsequently developed pretty severe diarrhea, beginning around a 3 or 4. It lasted for 2 weeks. She continued with cycle 2 on 06/28/2019. That treatment was complicated by a pretty severe skin eruption, and she continued to have diarrhea. With cycle 3 on 07/26/2019 I did opt to omit the docetaxel. With had cycle there was no recurrence of skin eruption, but she continued to have severe diarrhea. With cycle 4, on 08/23/2019, Dr Rascon opted to admit the Perj[facility] and replace the taxane portion of her chemotherapy with Abraxane. On 08/29/2019 she was admitted to the hospital with severe pancytopenia. She continued to have diarrhea and she also developed significant liver dysfunction. She required transfusion of PRBC and platelets. She had uneventful recovery of her white blood cell count, but she continued to have severe thrombocytopenia at discharge, requiring additional outpatient platelet pheresis. Dr Rascon had seen her for a follow-up visit on 09/20/2019. Given the multiple toxicities she had experienced, it was opted to not attempt any further chemotherapy. A restaging PET/CT on 09/24/2019 showed primary right breast carcinoma measuring 1.6 cm with SUV 4.6, significantly improved from the prior study. The solitary right axillary lymph node had resolved. The nearly contiguous left breast lesions were reported to have SUV of 3.1, also representing a significant response to therapy. At her follow-up visit on 10/25/2019 she still had very limited activity, and she also continued to have significant lower extremity edema. At that point her treatment remained on hold. Her medical history is otherwise significant in that she had presented in 2014 anemia, severe enough to require transfusion. This was ultimately determined to be due to endometrial cancer, for which she underwent hysterectomy/bilateral salpingo-oophorectomy. Those records are not available at this time. She indicates that there was no lymph node involvement. She apparently did receive postoperative radiation with HDR implant. There has been no evidence of recurrence of the endometrial cancer. Her other medical illnesses include hypertension and hypothyroidism. She has a history of smoking 1-2 packs of cigarettes daily for 50 years. She quit smoking in 2014. She has alcohol use of at least a 6-pack of beer daily. INTERIM HISTORY: At her follow-up visit on 11/01/2019 she had recovered sufficiently to resume treatment with single agent Herceptin at a 3-week dosing schedule. She tolerated it without significant toxicity. On 11/17/2019 she underwent bilateral modified radical mastectomies. Pathology on the left breast showed grade 2 invasive ductal carcinoma, multifocal, with the largest focus measuring 2.8 cm in maximum diameter. There was invasion into the dermis, but without skin ulceration. There was a small component of nuclear grade 1 ductal carcinoma in situ. The margins were negative. There was involvement in 6 of 8 axillary lymph nodes with the largest metastatic deposit measuring 6 mm. Pathologic staging was ypT2, ypN2a. The right breast showed grade 1 invasive ductal carcinoma measuring 1.3 cm in maximum diameter. There was an extensive component of nuclear grade 2 intraductal cancer, estimated at 13 mm. The margins were uninvolved. There was involvement in 8 of 8 axillary lymph nodes with the largest metastatic deposit measuring 5 mm. Pathologic staging was ypT1c, ypN2a. She had no complications with the surgery. She was able to continue single agent Herceptin at the 3- week dosing schedue. As of 12/13/2019 she had received her 3rd cycle. During that time she did show gradual improvement in her neuropathy and performance status. As of her visit on 01/03/2020, Dr Rascon opted to change her systemic therapy to Kadcyla at 3.6 mg/kg by IV infusion. At that time, she also began adjuvant hormonal therapy with anastrozole 1 mg daily. She tolerated the initial infusion of Kadcyla with no adverse effects. She continued with cycle 2 on 01/24/2020, and she began chest wall radiation on 01/25/2020. Her 3rd cycle of Kadcyla was delayed due to neutropenia. Mrs. Zheng is here today for follow-up. Her Kadcyla has been on hold due to blood counts. Her platelet count has been low as well as her neutrophils have been low. Her ANC on April 02 was recovered at 3800 however her platelet count is 64,000. Her last Kadcyla treatment was January 24, 2020. Ms. Zheng is here today to see radiation therapy as well. She feels that she may need hydration today as well. She is trying to eat and is drinking much better at home but states she still feels little washed out and the hydration does seem to help some. Has not had any increased shortness of breath or lower extremity edema with the hydration. She did have a CT pulmonary angiogram on April 09, 2020 for increased shortness of breath. It does note that she has dilatation of the main pulmonary artery tract measuring 5.4 in transverse dimension which was unchanged. There was no evidence of pulmonary embolus. She did have a small right pleural effusion and a small pericardial effusion which are new from the previous scan. She had fiberoptic appearing airspace infiltrates in the mid and upper lungs anteriorly which are new from the previous scan and may be due to radiation pneumonitis. Additional airspace infiltrates along the right upper lobe bronchus. There were no other significant changes. Mrs. Zheng and I discussed using steroids for the possible radiation pneumonitis to try to help her breathing as she is remained short of breath. She states she thinks her breathing is some better. She states she just really does not want to do steroids because they make me loopy and put me on a trip . She denies any pain with inspiration. She denies any fever or chills. Has had occasional cough but states is nothing out of the ordinary for her. Is been nonproductive. She has no new concerns today. Her ECOG is 2. Past Medical History: Anemia Diverticulosis History of uterine cancer Hypertension Hypothyroidism Past Surgical History: Hernia repair Tubal ligation Mastectomy in 2019 - double mastectomy Hysterectomy/bilateral salpingo-oophorectomy in 2014 Allergies: Levaquin Medications: Aleve 1 Tablet (of 220 mg) Tablet Oral PRN Aspirin 1 Tablet (of 81 mg) Oral daily Imodium A-D 2 Tablet (of 2 mg) Oral b.i.d. PRN Lasix 1 Tablet (of 40 mg) Oral daily PRN Levothyroxine Sodium 1 (112 mcg) Tablet Oral daily LORazepam 0.5 - 1 Tablet (of 1 mg) Oral t.i.d. PRN Magnesium 1 Tablet Oral b.i.d. Potassium Chloride ER 1 Tablet (of 10 meq) Tablet, controlled release Oral daily Prochlorperazine Maleate 1 Tablet (of 10 mg) Oral q 4 hours PRN Family History: Ms. Zheng's mother at age 84: cancer of unknown primary. Ms. Zheng's father at age 80: congestive heart failure. Ms. Zheng has 3 brothers: 3 . She has 4 sisters: 2 alive, 2 . Ms. Zheng's first sister's breast cancer. Father during surgery for cerebral aneurysm. Mother had lung cancer and breast cancer, and a sister has been treated for breast cancer. A sister of stroke associated with cerebral aneurysm. She had 3 brothers, all of whom also are . 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 Ms. Zheng quit smoking 4 years ago but had smoked 1.5 packs/day for 50 years. She is an active drinker.She consumes 6 drinks/day 7 days/week. She has a history of smoking 1-2 packs of cigarettes daily for 50 years. She quit smoking in 2014. She has daily alcohol use of at least a 6-pack of beer daily. Review Of Symptoms: Respiratory She is having dyspnea on exertion- about the same , but denies chest pain, cough or hemoptysis. Denies orthopnea. Constitutional Denies fevers, chills, night sweats. Allergic/Immunologic No reactions. Eyes Denies significant visual changes. No diplopia. No amaurosis. ENMT Denies changes in hearing, sore throat, difficulty or changes in swallowing ability, and/or sinus drainage. She states her mouth improved from last week. Endocrine No diabetes, thyroid disease or hormone replacement. Denies hot flashes or night sweats. Hematologic/Lymphatic Denies easy bruising or bleeding. The patient denies any tender or palpable lymph nodes. Breasts No current concerns. Cardiovascular Denies anginal chest pain, palpitations or orthopnea. Gastrointestinal Denies nausea, vomiting, GI bleeding, or constipation. Denies change in bowel habits and/or stool color, no heartburn or early satiety. She denies diarrhea. Genitourinary (F) No hematuria, hesitancy, incontinence, vaginal bleeding, discharge or other problems with urination. Musculoskeletal Denies joint pain, swelling or redness. No decreased range of motion. Integumentary Denies rashes, inflammation, ulcerations or skin changes. Neurologic Denies headache, blurred vision, and no areas of focal weakness or numbness. Normal-assisted gait. No increase in neuropathy symptoms. Maybe some better . Psychiatric Denies insomnia, depression, kat or mood swings. Constitutional Complains of moderate fatigue. Denies lack of appetite, fever and night sweats. Eyes Denies blurred vision and double vision. ENMT Complains of altered taste. Denies dysphagia, mouth dryness and stomatitis. Neck Denies neck pain. Integumentary Denies rash. Breasts Denies pain. Cardiovascular Complains of edema in both feet. Denies arrhythmias and chest pain. Respiratory Complains of a mild cough which is non-productive. Complains of severe dyspnea associated with normal activity. Complains of wheezing. Gastrointestinal Denies abdominal pain, constipation, diarrhea, heartburn / dyspepsia, melena / GI bleeding, nausea and vomiting. Genitourinary (F) Denies dysuria, frequency, nocturia and urgency. Musculoskeletal Complains of joint pain in both shoulders. Complains of generalized muscle weakness. Neurologic Complains of headaches off and on. Denies dizziness. Endocrine Complains of thyroid disease. Denies diabetes. Hematologic/Lymphatic Denies tender or enlarged lymph nodes. Vital Signs: Performed on Apr 10, 2020 13:22 Height - 66.00 in Weight - 175.8 lbs Temperature - 98.8 F Pulse - 101 Respiration - 24 BP - 91/65 mm(hg) O2 Sat - 91 % (LOW) Pain - 5 Performed on Apr 10, 2020 13:22 BMI - 28.375 kg/m2 (HIGH),2 - Ambulatory/capable of all self-care, unable to perform any work activities. Up and about more than 50% of waking hours. (ECOG) Physical Examination: Constitutional Alert, oriented, no acute distress. Skin pink, warm and dry. Head Normocephalic; atraumatic. Eyes Conjunctivae and sclerae are clear and without icterus. Pupils are reactive and equal. ENMT No oral exudates, ulcers, masses, thrush or mucositis. Oropharynx clear. Tongue normal. Neck Supple without masses or thyromegaly. No jugular venous distension. Hematologic/Lymphatic No petechiae or purpura. No tender or palpable lymph nodes in the cervical or supraclavicular areas. Respiratory Lungs are clear to auscultation without rhonchi or wheezing. Cardiovascular Regular rate and rhythm of heart without murmurs,clicks, gallops or rubs. Chest Chest wall slightly pink from radiation field, but no peeling or exudate noted. Breasts bilateral mastectomy sites have healed well. Abdomen Non-tender, non-distended, no masses, ascites. Back/Spine Non-tender to palpation. Extremities No visible deformities, no cyanosis, clubbing or edema. Musculoskeletal No tenderness or swelling, normal range of motion without obvious weakness. Integumentary No rashes or lesions. Neurologic No sensory or motor deficits, normal cerebellar function, normal slow gait today. Psychiatric Alert and oriented times three. Coherent speech. Verbalizes understanding of our discussions today. Laboratory:Test performed on Apr 02, 2020 13:40 WBC 6.4 10 3/uL RBC 4.61 10 6/uL HGB 15.5 g/dL HCT 48.0 % MCV 104.1 fL MCH 33.6 pg MCHC 32.3 g/dL RDW 18.0 % Platelet Count 64 10 3/cmm MPV 12.8 fL Neutrophils 3.8 10 3/uL Lymphocytes 0.6 10 3/uL Monocytes 0.5 10 3/uL Eosinophils 1.4 10 3/uL Basophils 0.1 10 3/uL Neutrophil % 60.1 % Lymphocyte % 10.0 % Monocyte % 7.2 % Eosinophil % 21.6 % Basophils % 0.8 % NRBC % 0 % Test performed on Mar 26, 2020 11:40 Sodium 137 mmol/L Potassium 3.6 mmol/L Chloride 100 mmol/L CO2 25 mmol/L Anion Gap 15.6 BUN 19 mg/dL Creatinine 0.9 mg/dL Cr Clearance (Est) 77.4900 mL/min eGFR 62.5 mL/min Glucose 128 mg/dL Calcium 9.3 mg/dL Protein, Total 5.9 g/dL Albumin 3.0 g/dL Globulin 2.9 g/dL Bilirubin, Total 0.7 mg/dL ALT (SGPT) 21 U/L AST (SGOT) 35 U/L Alkaline Phosphatase 122 IU/L Test performed on Dec 12, 2019 13:50 Magnesium 1.9 mg/dL Test performed on Oct 25, 2019 11:30 NT proBNP 5134 pg/mL T4, Free 1.92 ng/dL TSH 0.56 uIU/mL Vitamin B12 571 pg/mL Vitamin D (25-Hydroxy), Total 52 ng/mL Impression: 1. Patient with bilateral invasive breast cancer, both locally advanced. The right breast cancer was grade 1 infiltrating ductal carcinoma, post treatment stage IIA (ypT1c, ypN2a, M0), ER/WY positive and HER-2/bernadine negative. The left breast cancer was grade 3 infiltrating ductal carcinoma, post treatment stage at least IB (ypT2, ypN2a, M0), ER/WY positive and HER-2/bernadine positive. 2. She underwent bilateral ultrasound directed breast biopsies on 04/06/2019, and she underwent ultrasound directed needle biopsy of a right axillary lymph node on 05/19/2019. 3. She was given neoadjuvant chemotherapy with TCH-P, cycle 1 beginning on 06/02/2019. She experienced multiple toxicities including diarrhea and neuropathy, severe enough to require modifications in her treatment. The chemotherapy was stopped after 4 cycles due to toxicity. 4. As of 11/01/2019 she resumed treatment with single agent Herceptin at a 3-week dosing interval. 5. On 11/17/2019 she underwent bilateral modified radical mastectomies. Her other medical illnesses include: 6. Hypertension. 7. Hypothyroidism. 8. She has a history of endometrial cancer for which she underwent hysterectomy/bilateral salpingo-oophorectomy and postoperative HDR implant radiation in 2014. On 11/22/2019 she continued with cycle 2 of single agent Herceptin. She tolerated it well. She has had very gradual recovery from the chemotherapy-related toxicities. She continues to show improvement in her leg weakness and performance status. As of 01/03/2020 her systemic adjuvant therapy was changed from single agent Herceptin to Kadcyla at 3.6 mg/kg by IV infusion every 3 weeks. At that time she also started adjuvant hormonal therapy with anastrozole 1 mg daily. She completed 2 cycles of Kadcyla with no adverse effects. She was then seen by the radiation oncologist and she began prophylactic chest wall radiation. Her 3rd cycle of Kadcyla was delayed due to neutropenia.Her ANC is slowly recovering but now she has thrombocytopenia with a platelet count of 51,000. Plan: 1. Her Kadcyla will remain on hold due to the thrombocytopenia. Platelet count is 51,000 down from 64,000 last week. 2. continue adjuvant hormonal therapy with anastrozole 1 mg daily. 3. Labs from 04/09/2020 were reviewed in detail and discussed with Ms. Zheng and a copy was given to her white count 5.3 hemoglobin 15.7 platelets 51,000 ANC is 3700. Potassium 3.8 random glucose is 123. LFTs are normal. creatinine was 0.9 and her alk phos is 129. 4. She will receive 1 L normal saline today as hydration. 5. We will plan to give her another 1-week break. I have asked that she have CBC CMP prior to her visit in 1 week and this would need to be in-home labs if at all possible as she has homebound status. It is extremely difficult for her to get out and have her labs drawn- some times to the point that she does not have them drawn and we do not have them for her visit or we have to wait for them when she does get here. She relies on family to transport her to her appointments and sometimes that is not reliable. 6. Ms. Zheng instructed to call us in the interim should she have questions or problems arise. She has no questions at this time. If her platelets have not recovered in 1 week then we will given her additional 2 weeks will hopefully allow her to recover from the thrombocytopenia. The neutropenia has slowly recovered. 7. I have asked her to return in 1 week with CBC, CMP. She may have hydration as needed then and in the interim as well. 8. Dr. Rascon had a chance to review reviewed the CTA, he recommend that Mrs. Zheng pursue steroids for the radiation pneumonitis. I did call and talk to her and she was so reluctant at first but we did discuss that we would just do a short course and if she has significant intolerance that we can try to taper off quicker as needed. She is advised that the radiation pneumonitis is most likely what is causing her shortness of breath although it is not affecting her blood counts at this point. After some discussion she did agree to try the steroids for the radiation pneumonitis. A prescription was sent to her pharmacy fot Prednisone. The prednisone dosing is 20 mg 2 tablets day 1 (40 mg), 1-1/2 tablets on day 2 (30 mg), 1 tablet on day 3 (20 mg), then 1/2 tablet (10 mg) on day 4 and 5 and if she has significant improvement in her breathing she may stop at that point otherwise she can continue until she sees us next week. Signed By: Christopher Katz-, AOCNP Tab Rascon MD <<Signature on File>>
[2020-04-16 18:45] LABS: Basophils % 0.8 %; Eosinophils % 0.6 %; Hematocrit 43.7 % (37.0-47.0); Hemoglobin 13.7 g/dL (11.5-15.3); Lymphocytes # 0.5 10^3/uL (0.8-4.8); Lymphocytes % 9.7 %; Mean Corpuscular HGB Conc 31.4 g/dL (30.0-36.0); Mean Corpuscular Hemoglobin 34.2 pg (28.0-34.0); Mean Platelet Volume 12.1 fL (7.4-10.4); Monocytes # 0.5 10^3/uL (0.2-0.9); Monocytes % 10.1 %; Neutrophils # 3.9 10^3/uL (1.8-7.7); Neutrophils % 78.6 %; Nucleated Red Blood Cells % 0 %; Platelet Count 61 10^3/cmm (130-400); Red Blood Count 4.01 10^6/uL (4.1-5.3); Red Cell Distribution Width 19.2 % (12.1-15.1); White Blood Count 4.9 10^3/uL (4.0-10.0)
[2020-04-16 19:08] LABS: Alanine Aminotransferase 30 U/L (0-33); Albumin Level 2.9 g/dL (3.5-5.2); Alkaline Phosphatase 176 IU/L (35-105); Anion Gap 16.5 (5-19); Aspartate Amino Transferase 39 U/L (0-32); Blood Urea Nitrogen 15 mg/dL (8-23); Calcium 8.8 mg/dL (8.5-10.5); Carbon Dioxide 26 mmol/L (22-29); Chloride 104 mmol/L (98-107); Globulin 3.4 g/dL (1.3-4.6); Glomerular Filtration Rate 83.2 mL/min (90-130); Glucose 151 mg/dL (65-115); Osmolality Calculated 293 mOsm/kg (285-295); Potassium 4.5 mmol/L (3.5-5.1); Sodium 142 mmol/L (136-145); Total Bilirubin 0.7 mg/dL (0.15-1.2); Total Protein 6.3 g/dL (6.6-8.7)
== END 2020-04-24 23:59 | disposition home or self-care (01) ==
LOC: ONCMED 06:49
PROVIDERS: Internal Medicine Medical Oncology; Absent Provider Specialist; PCP Nurse Practitioner Family; Visit Provider Nurse Practitioner
DX: C50.811 Malignant neoplasm of overlapping sites of right female breast (principal); C50.812 Malignant neoplasm of overlapping sites of left female breast; D70.1 Agranulocytosis secondary to cancer chemotherapy; D69.59 Other secondary thrombocytopenia; T45.1X5A Adverse effect of antineoplastic and immunosuppressive drugs, initial encounter; J70.0 Acute pulmonary manifestations due to radiation; Y84.2 Radiological procedure and radiotherapy as the cause of abnormal reaction of the patient, or of later complication, without mention of misadventure at the time of the procedure; B37.0 Candidal stomatitis; I10 Essential (primary) hypertension; E03.9 Hypothyroidism, unspecified; Z17.0 Estrogen receptor positive status [ER+]; Z87.891 Personal history of nicotine dependence; Z72.89 Other problems related to lifestyle; Z85.42 Personal history of malignant neoplasm of other parts of uterus; Z90.710 Acquired absence of both cervix and uterus; Z90.13 Acquired absence of bilateral breasts and nipples; Z90.722 Acquired absence of ovaries, bilateral; Z79.811 Long term (current) use of aromatase inhibitors; Z92.3 Personal history of irradiation; R06.02 Shortness of breath; R05 Cough; I28.1 Aneurysm of pulmonary artery; R91.8 Other nonspecific abnormal finding of lung field
CPT/HCPCS: 36415; 71275; 80053; 85025; 96360; 96365; 96368; 99214; J1450; J7030; Q9967

== ENCOUNTER 2020-05-01 06:57 | Outpatient (RCR) | payer MEDICARE, OTHER, SELFPAY ==
[2020-05-01 09:01] LABS: Basophils # 0.1 10^3/uL (0.0-0.1); Basophils % 1.5 %; Eosinophils # 0.3 10^3/uL (0.0-0.8); Eosinophils % 6.1 %; Hematocrit 42.1 % (37.0-47.0); Hemoglobin 13.8 g/dL (11.5-15.3); Lymphocytes # 0.5 10^3/uL (0.8-4.8); Lymphocytes % 10.2 %; Mean Corpuscular HGB Conc 32.8 g/dL (30.0-36.0); Mean Corpuscular Hemoglobin 35.8 pg (28.0-34.0); Mean Corpuscular Volume 109.4 fL (81-99); Monocytes # 0.5 10^3/uL (0.2-0.9); Monocytes % 10.4 %; Neutrophils # 3.3 10^3/uL (1.8-7.7); Neutrophils % 71.6 %; Nucleated Red Blood Cells % 0 %; Platelet Count 93 10^3/cmm (130-400); Red Blood Count 3.85 10^6/uL (4.1-5.3); Red Cell Distribution Width 16.9 % (12.1-15.1); White Blood Count 4.6 10^3/uL (4.0-10.0)
[2020-05-01 09:32] LABS: Alanine Aminotransferase 39 U/L (0-33); Albumin Level 3.3 g/dL (3.5-5.2); Alkaline Phosphatase 210 IU/L (35-105); Anion Gap 13.8 (5-19); Aspartate Amino Transferase 45 U/L (0-32); Blood Urea Nitrogen 16 mg/dL (8-23); Calcium 9.3 mg/dL (8.5-10.5); Carbon Dioxide 24 mmol/L (22-29); Chloride 105 mmol/L (98-107); Globulin 3.4 g/dL (1.3-4.6); Glomerular Filtration Rate 62.3 mL/min (90-130); Glucose 132 mg/dL (65-115); Osmolality Calculated 286 mOsm/kg (285-295); Potassium 3.8 mmol/L (3.5-5.1); Sodium 139 mmol/L (136-145); Total Bilirubin 0.8 mg/dL (0.15-1.2); Total Protein 6.7 g/dL (6.6-8.7)
--- NOTE | 2020-05-01 10:43 | ONC FU_ITS ---
Dr. Rascon Patient Follow-Up Note Patient: Bee Zheng Unit #: [id number]: 1950 Dicatated By: Tab Rascon M.D.Date of Visit:May 01, 2020 Onc Med Follow-up/Prog Note Chief Complaint: Bilateral breast cancer. History of Present Illness: This is a 70 year-old woman with bilateral invasive breast cancer, both locally advanced. The right breast was grade 1 infiltrating ductal carcinoma, post treatment stage IIA (ypT1c, ypN2a, M0), ER/KS positive and HER-2/bernadine negative. The left breast cancer was grade 3 infiltrating ductal carcinoma, post treatment stage at least IB (ypT2, ypN2a, M0), ER/KS positive and HER-2/bernadine positive. She had presented with gradually worsening swelling and firmness in her breasts after she had sustained a chest injury in a fall about 9 months ago. Bilateral mammograms on 03/23/2019 were BI-RADS 5, highly suggestive of malignancy. Findings included areas of dense asymmetry in the central right breast measuring 3.5 cm and in the central left breast measuring 4.5 by 3.9 cm. The right breast ultrasound showed an irregular hypoechoic mass at 12:00, middle depth, measuring 3.5 x 2.2 cm. Also noted was eccentric thickening of a lymph node in the right axilla. The left breast ultrasound showed a large amount of shadowing within the central breast mass containing calcifications at 12:00, measuring 4.6 x 3.7 cm. There were small benign-appearing lymph nodes on the left. She underwent bilateral ultrasound-guided biopsies on 04/06/2019. The left breast showed grade 3 infiltrating ductal carcinoma with a minor DCIS component. The breast prognostic profile showed ER positive at 87% and KS positive at 72%. There was overexpression of HER-2/bernadine, 3+ by IHC and amplification ratio by FISH of 2.3 with 7.0 HER-2 copies/cell. The Ki-67 was unfavorable at 22%. The right breast showed grade 2 infiltrating ductal carcinoma. A subsequent prognostic profile on the right breast biopsy showed ER positive at 87% and KS positive at 21%. That tumor was negative for overexpression of HER-2/bernadine, 1+ by IHC and amplification ratio by FISH of 1.0 with 2.4 HER-2 copies/cell. Staging PET/CT on 05/07/2019 showed FDG avid right breast lesion measuring 2.1 cm, SUV 13.7, and a solitary hypermetabolic right axillary lymph node with SUV 5.3, consistent with local metastatic disease. Other right axillary lymph nodes were too small to characterize by PET. The left breast showed 2 nearly contiguous lesions, the more dominant measuring 2.5 x 3.8 cm with SUV 8.3. The more inferior and lateral lesion measured 1.3 x 1.5 cm with SUV 11.7. Left axillary lymph nodes were too small to characterize by PET. There were no areas of uptake to suggest any other metastatic disease. A needle biopsy of the right axillary lymph node on 05/19/2019 showed metastatic carcinoma most consistent with breast primary. Given those findings and with HER-2/bernadine positive disease in the left breast, she was recommended to undergo neoadjuvant chemotherapy with TCH-P. On 06/02/2019 she began cycle 1 of neoadjuvant chemotherapy with TCH-P. She tolerated the treatment without acute toxicity. She subsequently developed pretty severe diarrhea, beginning around a 3 or 4. It lasted for 2 weeks. She continued with cycle 2 on 06/28/2019. That treatment was complicated by a pretty severe skin eruption, and she continued to have diarrhea. With cycle 3 on 07/26/2019 I did opt to omit the docetaxel. With had cycle there was no recurrence of skin eruption, but she continued to have severe diarrhea. With cycle 4, on 08/23/2019, I opted to admit the Perjeta and replace the taxane portion of her chemotherapy with Abraxane. On 08/29/2019 she was admitted to the hospital with severe pancytopenia. She continued to have diarrhea and she also developed significant liver dysfunction. She required transfusion of PRBC and platelets. She had uneventful recovery of her white blood cell count, but she continued to have severe thrombocytopenia at discharge, requiring additional outpatient platelet pheresis. I had seen her for a follow-up visit on 09/20/2019. Given the multiple toxicities she had experienced, I opted not to attempt any further chemotherapy. A restaging PET/CT on 09/24/2019 showed primary right breast carcinoma measuring 1.6 cm with SUV 4.6, significantly improved from the prior study. The solitary right axillary lymph node had resolved. The nearly contiguous left breast lesions were reported to have SUV of 3.1, also representing a significant response to therapy. At her follow-up visit on 10/25/2019 she still had very limited activity, and she also continued to have significant lower extremity edema. At that point her treatment remained on hold. Her medical history is otherwise significant in that she had presented in 2014 anemia, severe enough to require transfusion. This was ultimately determined to be due to endometrial cancer, for which she underwent hysterectomy/bilateral salpingo-oophorectomy. Those records are not available at this time. She indicates that there was no lymph node involvement. She apparently did receive postoperative radiation with HDR implant. There has been no evidence of recurrence of the endometrial cancer. Her other medical illnesses include hypertension and hypothyroidism. She has a history of smoking 1-2 packs of cigarettes daily for 50 years. She quit smoking in 2014. She has alcohol use of at least a 6-pack of beer daily. INTERIM HISTORY: At her follow-up visit on 11/01/2019 she had recovered sufficiently to resume treatment with single agent Herceptin at a 3-week dosing schedule. She tolerated it without significant toxicity. On 11/17/2019 she underwent bilateral modified radical mastectomies. Pathology on the left breast showed grade 2 invasive ductal carcinoma, multifocal, with the largest focus measuring 2.8 cm in maximum diameter. There was invasion into the dermis, but without skin ulceration. There was a small component of nuclear grade 1 ductal carcinoma in situ. The margins were negative. There was involvement in 6 of 8 axillary lymph nodes with the largest metastatic deposit measuring 6 mm. Pathologic staging was ypT2, ypN2a. The right breast showed grade 1 invasive ductal carcinoma measuring 1.3 cm in maximum diameter. There was an extensive component of nuclear grade 2 intraductal cancer, estimated at 13 mm. The margins were uninvolved. There was involvement in 8 of 8 axillary lymph nodes with the largest metastatic deposit measuring 5 mm. Pathologic staging was ypT1c, ypN2a. She had no complications with the surgery. She was able to continue single agent Herceptin at the 3- week dosing schedue. As of 12/13/2019 she had received her 3rd cycle. During that time she did show gradual improvement in her neuropathy and performance status. As of her visit on 01/03/2020 I opted to change her systemic therapy to Kadcyla at 3.6 mg/kg by IV infusion. At that time, she also began adjuvant hormonal therapy with anastrozole 1 mg daily. She tolerated the initial infusion of Kadcyla with no adverse effects. She continued with cycle 2 on 01/24/2020, and she began chest wall radiation on 01/25/2020. Her 3rd cycle of Kadcyla was delayed due to neutropenia. She went on to complete radiation on 03/06/2020, 5040 cGy to each chest wall. She had then presented with increased shortness of breath. Her CT pulmonary angiogram on 04/09/2020 showed no evidence for pulmonary embolus. She was small right pleural and pericardial effusions, which were new. The most significant finding was fibrotic appearing airspace infiltrates in the mid and upper lungs anteriorly, also new. The findings were felt to be most consistent with radiation pneumonitis. She began on steroid therapy. She is seen for a follow-up visit. She has been feeling better generally since she is been on the steroid. She had actually tapered off and stopped prednisone last week. She still has limited activity tolerance, but it is getting better. She is doing light work again. ECOG score is 1. She has good appetite. She has no fever, night sweats, or hot flashes. Within the past few days she has been a little more short of breath again. She has just occasional dry cough. She does not complain of chest pain. She has some generalized aches and pains. She sometimes has more severe pain in the hip area, but it is tolerable. She has had some nausea. She has no other GI or complaints. She has headache occasionally. She still has neuropathy in her legs. Medications: Aleve 1 Tablet (of 220 mg) Tablet Oral PRN, Aspirin 1 Tablet (of 81 mg) Oral daily, Imodium A-D 2 Tablet (of 2 mg) Oral b.i.d. PRN, Lasix 1 Tablet (of 40 mg) Oral daily PRN, Levothyroxine Sodium 1 (112 mcg) Tablet Oral daily, LORazepam 0.5 - 1 Tablet (of 1 mg) Oral t.i.d. PRN, Magnesium 1 Tablet Oral b.i.d., Potassium Chloride ER 1 Tablet (of 10 meq) Tablet, controlled release Oral daily, Prochlorperazine Maleate 1 Tablet (of 10 mg) Oral q 4 hours PRN Allergies: Levaquin Review of Systems: Constitutional - She is generally feeling okay. Her energy has improved. She is able to do light housework. She is now able to ambulate with a walker or and sometimes without it. Her appetite is good and her weight is down about 4 pounds since last visit. No fever, night sweats, or hot flashes. ECOG score is 1, ENMT - She has sinus congestion/drainage. No mouth sores. No sore throat or difficulty swallowing, Hematologic/Lymphatic - No abnormal bruising or bleeding, Respiratory - She has shortness of breath with activity. No cough. No pleuritic pain or hemoptysis, Cardiovascular - No angina pain. No palpitations, Gastrointestinal - She has some nausea this morning. No vomiting. No heartburn or acid reflux. No diarrhea or constipation. No blood in the stool or black stools, Genitourinary (F) - No dysuria or hematuria. No urinary frequency. No urgency or incontinence, Musculoskeletal - She has intermittent hip pain, mainly to her left hip. She has some generalized aches and pains, Integumentary - No skin complications, Neurologic - She has a headache today. She believes it is sinus related. No dizziness. She has neuropathy in her legs, Psychiatric - No anxiety or depression. No insomnia. Vital Signs: Performed on May 01, 2020 09:59 Height - 66.00 in Weight - 171.6 lbs (LOW) BSA - 1.87 sq.m BMI - 27.70 Temperature - 98.4 F Pulse - 86 /min Respiration - 26 /min BP - 112/46 mm(hg) O2 Sat - 94 % (LOW) Pain - 0 Physical Examination: Constitutional - She looks pretty good generally, Eyes - Sclerae nonicteric. Conjunctivae clear, ENMT - No lesions noted in the oral cavity, Hematologic/Lymphatic - No cervical or clavicular adenopathy, Respiratory - Lungs sound clear, Cardiovascular - Heart rhythm is regular. There is no murmur, gallop, or rub noted, Breasts - There are no chest wall lesions noted. There is no axillary adenopathy, Abdomen - Soft. Liver and spleen are not enlarged. There is no abdominal mass or ascites noted and there is no inguinal adenopathy, Extremities - No edema, Neurologic - No focal neurologic deficits noted. Lab/Imaging: Test performed on May 01, 2020 08:35 Sodium 139 mmol/L Potassium 3.8 mmol/L Chloride 105 mmol/L CO2 24 mmol/L Anion Gap 13.8 BUN 16 mg/dL Creatinine 0.9 mg/dL Cr Clearance (Est) 76.4300 mL/min eGFR 62.3 mL/min Glucose 132 mg/dL Calcium 9.3 mg/dL Protein, Total 6.7 g/dL Albumin 3.3 g/dL Globulin 3.4 g/dL Bilirubin, Total 0.8 mg/dL ALT (SGPT) 39 U/L AST (SGOT) 45 U/L Alkaline Phosphatase 210 IU/L WBC 4.6 10 3/uL RBC 3.85 10 6/uL HGB 13.8 g/dL HCT 42.1 % MCV 109.4 fL MCH 35.8 pg MCHC 32.8 g/dL RDW 16.9 % Platelet Count 93 10 3/cmm MPV 11.0 fL Neutrophils 3.3 10 3/uL Lymphocytes 0.5 10 3/uL Monocytes 0.5 10 3/uL Eosinophils 0.3 10 3/uL Basophils 0.1 10 3/uL Neutrophil % 71.6 % Lymphocyte % 10.2 % Monocyte % 10.4 % Eosinophil % 6.1 % Basophils % 1.5 % NRBC % 0 % Impression: 1. Patient with bilateral invasive breast cancer, both locally advanced. The right breast cancer was grade 1 infiltrating ductal carcinoma, post treatment stage IIA (ypT1c, ypN2a, M0), ER/KS positive and HER-2/bernadine negative. The left breast cancer was grade 3 infiltrating ductal carcinoma, post treatment stage at least IB (ypT2, ypN2a, M0), ER/KS positive and HER-2/bernadine positive. 2. She underwent bilateral ultrasound directed breast biopsies on 04/06/2019, and she underwent ultrasound directed needle biopsy of a right axillary lymph node on 05/19/2019. 3. She was given neoadjuvant chemotherapy with TCH-P, cycle 1 beginning on 06/02/2019. She experienced multiple toxicities including diarrhea and neuropathy, severe enough to require modifications in her treatment. The chemotherapy was stopped after 4 cycles due to toxicity. 4. As of 11/01/2019 she resumed treatment with single agent Herceptin at a 3-week dosing interval. 5. On 11/17/2019 she underwent bilateral modified radical mastectomies. Her other medical illnesses include: 6. Hypertension. 7. Hypothyroidism. 8. She has a history of endometrial cancer for which she underwent hysterectomy/bilateral salpingo-oophorectomy and postoperative HDR implant radiation in 2014. On 11/22/2019 she continued with cycle 2 of single agent Herceptin. She tolerated it well. She has had very gradual recovery from the chemotherapy-related toxicities. She continues to show improvement in her leg weakness and performance status. As of 01/03/2020 her systemic adjuvant therapy was changed from single agent Herceptin to Kadcyla at 3.6 mg/kg by IV infusion every 3 weeks. At that time she also started adjuvant hormonal therapy with anastrozole 1 mg daily. She completed 2 cycles of Kadcyla with no adverse effects. She was then seen by the radiation oncologist and she began prophylactic chest wall radiation. Her 3rd cycle of Kadcyla was delayed due to neutropenia. She went on to complete radiation on 03/06/2020, total dose 5040 cGy to each chest wall. She had then presented with increased shortness of breath, and her CT pulmonary angiogram on 04/09/2020 showed new fibrotic changes in both lungs, felt to be consistent with radiation pneumonitis. She has now completed a course of steroid therapy. During this time she has continued adjuvant hormonal therapy with anastrozole, but her Kadcyla has remained on hold. She has had some improvement in her performance status with the steroid therapy, though recently she has been a little more short of breath again. There has been an increase in her liver enzymes, which I suspect may be steroid related. Plan: She will continue adjuvant hormonal therapy with anastrozole 1 mg daily. I think it will be best to keep the Kadcyla on hold. I will have her restart prednisone at 10 mg daily. She will be scheduled for a follow-up visit in 1 month. She will have restaging CT scans prior to that visit. Signed By: Tab Rascon M.D. <<Signature on File>>
== END 2020-05-25 23:59 | disposition home or self-care (01) ==
LOC: ONCMED 06:57
PROVIDERS: PCP Nurse Practitioner Family; Visit Provider Internal Medicine Medical Oncology
DX: C50.811 Malignant neoplasm of overlapping sites of right female breast (principal); C50.812 Malignant neoplasm of overlapping sites of left female breast; Z17.0 Estrogen receptor positive status [ER+]; R94.5 Abnormal results of liver function studies; I10 Essential (primary) hypertension; E03.9 Hypothyroidism, unspecified; Z85.42 Personal history of malignant neoplasm of other parts of uterus; Z92.3 Personal history of irradiation; Z87.891 Personal history of nicotine dependence; Z90.13 Acquired absence of bilateral breasts and nipples; Z90.710 Acquired absence of both cervix and uterus; Z90.722 Acquired absence of ovaries, bilateral; Z79.811 Long term (current) use of aromatase inhibitors; Z79.899 Other long term (current) drug therapy
CPT/HCPCS: 36591; 80053; 85025; 99214

== ENCOUNTER 2020-06-04 05:30 | Outpatient (RCR) | payer MEDICARE, OTHER, SELFPAY ==
--- NOTE | 2020-05-31 09:06 | CT_ITS ---
WS: [id number] CT CHEST, ABDOMEN, AND PELVIS TECHNIQUE: Contrast-enhanced CT of the chest, abdomen, and pelvis with coronal and sagittal reformatt ed images. CLINICAL INFORMATION: BREAST CANCER, PNEUMONITIS, ELEVATED LIVER ENZYMES COMPARISON: None. DLP: 2319.[address] scans at [facility] use at least one of these dose optimization techniques: automat ed exposure control; mA and/or kV adjustment per patient size (includes targeted exams where dose is matched to clinical indication); or iterative reconstruction. CT CHEST: Again seen is moderate dilatation of the main pulmonary artery trunk. Aneurysmal dilatation measures approximately 5.4 cm in maximum transverse dimension unchanged. Stable mild dilatation of the main pu lmonary arteries. Normal caliber thoracic aorta. Mild aortic calcification. No mediastinal or hilar l ymphadenopathy. Small pericardial effusion. Moderate chronic emphysematous changes. A few calcified granulomas. No acute pulmonary infiltrates. C hronic pleural and subpleural fibrosis left upper lobe unchanged. No axillary lymphadenopathy. CT ABDOMEN AND PELVIS: Prior hysterectomy. Liver is normal. Normal portal vein and splenic vein. Cholelithiasis. Splenic granulomas. Normal GE j unction. Normal pancreas. Adrenal glands are normal. Normal renal parenchymal enhancement. No hydrone phrosis. Normal caliber abdominal aorta. Aortic calcification. Sigmoid diverticulosis. No evidence of acute diverticulitis. Stable low-attenuation collection in the right lower quadrant likely incidental seroma measuring 3.2 x 2.8 cm unchanged. No periaortic or retroperitoneal lymphadenopathy. No inguinal lymphadenopathy. CT/CT chest abd pel w con* IMPRESSION: 1. No evidence of metastatic disease in the chest abdomen or pelvis. 2. No mediastinal or hilar lymphadenopathy. No abdominal or pelvic lymphadenop athy. 3. Stable dilatation of the main pulmonary trunk described above. 4. Small pericardial effusion. 5. Cholelithiasis.
[2020-06-04 09:00] LABS: Basophils # 0.1 10^3/uL (0.0-0.1); Basophils % 1.8 %; Eosinophils # 0.1 10^3/uL (0.0-0.8); Eosinophils % 2.7 %; Hematocrit 41.6 % (37.0-47.0); Hemoglobin 13.7 g/dL (11.5-15.3); Lymphocytes # 0.7 10^3/uL (0.8-4.8); Lymphocytes % 14.8 %; Mean Corpuscular HGB Conc 32.9 g/dL (30.0-36.0); Mean Corpuscular Hemoglobin 35.6 pg (28.0-34.0); Mean Corpuscular Volume 108.1 fL (81-99); Mean Platelet Volume 10.8 fL (7.4-10.4); Monocytes # 0.7 10^3/uL (0.2-0.9); Monocytes % 15.9 %; Neutrophils # 2.83 10^3/uL (1.8-7.7); Neutrophils % 64.3 %; Nucleated Red Blood Cells % 0 %; Platelet Count 88 10^3/cmm (130-400); Red Blood Count 3.85 10^6/uL (4.1-5.3); Red Cell Distribution Width 13.4 % (12.1-15.1); White Blood Count 4.4 10^3/uL (4.0-10.0)
[2020-06-04 09:14] LABS: Alanine Aminotransferase 29 U/L (0-33); Albumin Level 3.6 g/dL (3.5-5.2); Alkaline Phosphatase 120 IU/L (35-105); Anion Gap 11.3 (5-19); Aspartate Amino Transferase 24 U/L (0-32); Blood Urea Nitrogen 12 mg/dL (8-23); Calcium 9.2 mg/dL (8.5-10.5); Carbon Dioxide 25 mmol/L (22-29); Chloride 106 mmol/L (98-107); Globulin 3.1 g/dL (1.3-4.6); Glomerular Filtration Rate 71.3 mL/min (90-130); Glucose 87 mg/dL (65-115); Osmolality Calculated 281 mOsm/kg (285-295); Potassium 4.3 mmol/L (3.5-5.1); Sodium 138 mmol/L (136-145); Total Bilirubin 0.8 mg/dL (0.15-1.2); Total Protein 6.7 g/dL (6.6-8.7)
[2020-06-04 09:50] LABS: Erythrocyte Sedimentation Rate 12 mm/hr (0-15)
--- NOTE | 2020-06-04 19:59 | ONC FU_ITS ---
Dr. Rascon Patient Follow-Up Note Patient: Bee Zheng Unit #: [id number]: 1950 Dicatated By: Tab Rascon M.D.Date of Visit:Jun 04, 2020 Onc Med Follow-up/Prog Note Chief Complaint: Bilateral breast cancer. History of Present Illness: This is a 70 year-old woman with bilateral invasive breast cancer, both locally advanced. The right breast was grade 1 infiltrating ductal carcinoma, post treatment stage IIA (ypT1c, ypN2a, M0), ER/OR positive and HER-2/bernadine negative. The left breast cancer was grade 3 infiltrating ductal carcinoma, post treatment stage at least IB (ypT2, ypN2a, M0), ER/OR positive and HER-2/bernadine positive. She had presented with gradually worsening swelling and firmness in her breasts after she had sustained a chest injury in a fall about 9 months ago. Bilateral mammograms on 03/23/2019 were BI-RADS 5, highly suggestive of malignancy. Findings included areas of dense asymmetry in the central right breast measuring 3.5 cm and in the central left breast measuring 4.5 by 3.9 cm. The right breast ultrasound showed an irregular hypoechoic mass at 12:00, middle depth, measuring 3.5 x 2.2 cm. Also noted was eccentric thickening of a lymph node in the right axilla. The left breast ultrasound showed a large amount of shadowing within the central breast mass containing calcifications at 12:00, measuring 4.6 x 3.7 cm. There were small benign-appearing lymph nodes on the left. She underwent bilateral ultrasound-guided biopsies on 04/06/2019. The left breast showed grade 3 infiltrating ductal carcinoma with a minor DCIS component. The breast prognostic profile showed ER positive at 87% and OR positive at 72%. There was overexpression of HER-2/bernadine, 3+ by IHC and amplification ratio by FISH of 2.3 with 7.0 HER-2 copies/cell. The Ki-67 was unfavorable at 22%. The right breast showed grade 2 infiltrating ductal carcinoma. A subsequent prognostic profile on the right breast biopsy showed ER positive at 87% and OR positive at 21%. That tumor was negative for overexpression of HER-2/bernadine, 1+ by IHC and amplification ratio by FISH of 1.0 with 2.4 HER-2 copies/cell. Staging PET/CT on 05/07/2019 showed FDG avid right breast lesion measuring 2.1 cm, SUV 13.7, and a solitary hypermetabolic right axillary lymph node with SUV 5.3, consistent with local metastatic disease. Other right axillary lymph nodes were too small to characterize by PET. The left breast showed 2 nearly contiguous lesions, the more dominant measuring 2.5 x 3.8 cm with SUV 8.3. The more inferior and lateral lesion measured 1.3 x 1.5 cm with SUV 11.7. Left axillary lymph nodes were too small to characterize by PET. There were no areas of uptake to suggest any other metastatic disease. A needle biopsy of the right axillary lymph node on 05/19/2019 showed metastatic carcinoma most consistent with breast primary. Given those findings and with HER-2/bernadine positive disease in the left breast, she was recommended to undergo neoadjuvant chemotherapy with TCH-P. On 06/02/2019 she began cycle 1 of neoadjuvant chemotherapy with TCH-P. She tolerated the treatment without acute toxicity. She subsequently developed pretty severe diarrhea, beginning around a 3 or 4. It lasted for 2 weeks. She continued with cycle 2 on 06/28/2019. That treatment was complicated by a pretty severe skin eruption, and she continued to have diarrhea. With cycle 3 on 07/26/2019 I did opt to omit the docetaxel. With had cycle there was no recurrence of skin eruption, but she continued to have severe diarrhea. With cycle 4, on 08/23/2019, I opted to admit the Perjeta and replace the taxane portion of her chemotherapy with Abraxane. On 08/29/2019 she was admitted to the hospital with severe pancytopenia. She continued to have diarrhea and she also developed significant liver dysfunction. She required transfusion of PRBC and platelets. She had uneventful recovery of her white blood cell count, but she continued to have severe thrombocytopenia at discharge, requiring additional outpatient platelet pheresis. I had seen her for a follow-up visit on 09/20/2019. Given the multiple toxicities she had experienced, I opted not to attempt any further chemotherapy. A restaging PET/CT on 09/24/2019 showed primary right breast carcinoma measuring 1.6 cm with SUV 4.6, significantly improved from the prior study. The solitary right axillary lymph node had resolved. The nearly contiguous left breast lesions were reported to have SUV of 3.1, also representing a significant response to therapy. At her follow-up visit on 10/25/2019 she still had very limited activity, and she also continued to have significant lower extremity edema. At that point her treatment remained on hold. Her medical history is otherwise significant in that she had presented in 2014 anemia, severe enough to require transfusion. This was ultimately determined to be due to endometrial cancer, for which she underwent hysterectomy/bilateral salpingo-oophorectomy. Those records are not available at this time. She indicates that there was no lymph node involvement. She apparently did receive postoperative radiation with HDR implant. There has been no evidence of recurrence of the endometrial cancer. Her other medical illnesses include hypertension and hypothyroidism. She has a history of smoking 1-2 packs of cigarettes daily for 50 years. She quit smoking in 2014. She has alcohol use of at least a 6-pack of beer daily. INTERIM HISTORY: At her follow-up visit on 11/01/2019 she had recovered sufficiently to resume treatment with single agent Herceptin at a 3-week dosing schedule. She tolerated it without significant toxicity. On 11/17/2019 she underwent bilateral modified radical mastectomies. Pathology on the left breast showed grade 2 invasive ductal carcinoma, multifocal, with the largest focus measuring 2.8 cm in maximum diameter. There was invasion into the dermis, but without skin ulceration. There was a small component of nuclear grade 1 ductal carcinoma in situ. The margins were negative. There was involvement in 6 of 8 axillary lymph nodes with the largest metastatic deposit measuring 6 mm. Pathologic staging was ypT2, ypN2a. The right breast showed grade 1 invasive ductal carcinoma measuring 1.3 cm in maximum diameter. There was an extensive component of nuclear grade 2 intraductal cancer, estimated at 13 mm. The margins were uninvolved. There was involvement in 8 of 8 axillary lymph nodes with the largest metastatic deposit measuring 5 mm. Pathologic staging was ypT1c, ypN2a. She had no complications with the surgery. She was able to continue single agent Herceptin at the 3- week dosing schedue. As of 12/13/2019 she had received her 3rd cycle. During that time she did show gradual improvement in her neuropathy and performance status. As of her visit on 01/03/2020 I opted to change her systemic therapy to Kadcyla at 3.6 mg/kg by IV infusion. At that time, she also began adjuvant hormonal therapy with anastrozole 1 mg daily. She tolerated the initial infusion of Kadcyla with no adverse effects. She continued with cycle 2 on 01/24/2020, and she began chest wall radiation on 01/25/2020. Her 3rd cycle of Kadcyla was delayed due to neutropenia. She went on to complete radiation on 03/06/2020, 5040 cGy to each chest wall. She had then presented with increased shortness of breath. Her CT pulmonary angiogram on 04/09/2020 showed no evidence for pulmonary embolus. She was small right pleural and pericardial effusions, which were new. The most significant finding was fibrotic appearing airspace infiltrates in the mid and upper lungs anteriorly, also new. The findings were felt to be most consistent with radiation pneumonitis. She began on steroid therapy. As of her follow-up visit on 05/01/2020, she was showing clinical improvement, and her prednisone dosage was decreased to 10 mg daily. Her restaging CT scans on 05/31/2020 showed moderate chronic emphysematous changes, with no acute pulmonary infiltrates. 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 There was also mild but stable dilatation of the main pulmonary arteries. There was no evidence of metastatic disease in the chest, abdomen, or pelvis. She is seen for a follow-up visit. She has been feeling pretty good generally, though she continues to have significant neuropathy in her legs, she feels that the pain may be getting worse. It does limit her activity, though she otherwise has too much energy. Her ECOG score is 1. Her appetite is good. She has gained weight. She has not had fever. She says she has had a few sweats. She continues to complain of shortness of breath. She has some cough associated with sinus drainage. She does not complain of chest pain. She occasionally has nausea. She has no other GI or complaints. She has sore joints. She also has some neuropathy in her hands. Medications: Aleve 1 Tablet (of 220 mg) Tablet Oral PRN, Anastrozole 1 Tablet (of 1 mg) Oral daily, Aspirin 1 Tablet (of 81 mg) Oral daily, Imodium A-D 2 Tablet (of 2 mg) Oral b.i.d. PRN, Lasix 1 Tablet (of 40 mg) Oral daily PRN, Levothyroxine Sodium 1 (112 mcg) Tablet Oral daily, LORazepam 0.5 - 1 Tablet (of 1 mg) Oral t.i.d. PRN, Magnesium 1 Tablet Oral b.i.d., Potassium Chloride ER 1 Tablet (of 10 meq) Tablet, controlled release Oral daily, Prochlorperazine Maleate 1 Tablet (of 10 mg) Oral q 4 hours PRN Allergies: Levaquin Review of Systems: Constitutional - Her energy is alot better, but her activity remains limited due to her neuropathy. She is doing all her housework. Appetite is good and weight is up about 7 pounds from last visit. No fever, night sweats, or hot flashes. ECOG score is 1, ENMT - She has chronic sinus congestion/drainage. No mouth sores. No sore throat or difficulty swallowing, Hematologic/Lymphatic - No abnormal bruising or bleeding, Respiratory - She has shortness of breath with activity. No cough. No pleuritic pain or hemoptysis, Cardiovascular - No angina pain. No palpitations, Gastrointestinal - She had some recent nausea, denies any today. No vomiting. No heartburn or acid reflux. No diarrhea or constipation. No blood in the stool or black stools, Genitourinary (F) - No dysuria or hematuria. No urinary frequency. No urgency or incontinence, Musculoskeletal - She has sore joints, Integumentary - No skin complications, Neurologic - She has occasional headaches. She gets lightheaded with positional changes. She has neuropathy in her hands and fingers, and she has painful neuropathy in her legs, Psychiatric - No anxiety or depression. No insomnia. Vital Signs: Performed on Jun 04, 2020 09:54 Height - 66.00 in Weight - 178.6 lbs (HIGH) BSA - 1.91 sq.m BMI - 28.83 Temperature - 97.5 F (LOW) Pulse - 108 /min (HIGH) Respiration - 26 /min BP - 111/70 mm(hg) O2 Sat - 93 % (LOW) Pain - 10 Physical Examination: Constitutional - She looks pretty good generally, Eyes - Sclerae nonicteric. Conjunctivae clear, ENMT - No lesions noted in the oral cavity, Hematologic/Lymphatic - No cervical, clavicular, or axillary adenopathy, Respiratory - Lungs sound clear with slightly diminished air movement bilaterally, Cardiovascular - Heart rhythm is regular. There is a mild tachycardia. There is no murmur, gallop, or rub noted, Abdomen - Soft. Liver and spleen are not enlarged. There is no abdominal mass or ascites noted and there is no inguinal adenopathy, Extremities - No edema, Neurologic - No focal neurologic deficits noted. Lab/Imaging: Test performed on Jun 04, 2020 08:43 Sodium 138 mmol/L Potassium 4.3 mmol/L Chloride 106 mmol/L CO2 25 mmol/L Anion Gap 11.3 BUN 12 mg/dL Creatinine 0.8 mg/dL Cr Clearance (Est) 85.9800 mL/min eGFR 71.3 mL/min Glucose 87 mg/dL Calcium 9.2 mg/dL Protein, Total 6.7 g/dL Albumin 3.6 g/dL Globulin 3.1 g/dL Bilirubin, Total 0.8 mg/dL ALT (SGPT) 29 U/L AST (SGOT) 24 U/L Alkaline Phosphatase 120 IU/L ESR (Sed Rate) 12 mm/hr WBC 4.4 10 3/uL RBC 3.85 10 6/uL HGB 13.7 g/dL HCT 41.6 % MCV 108.1 fL MCH 35.6 pg MCHC 32.9 g/dL RDW 13.4 % Platelet Count 88 10 3/cmm MPV 10.8 fL Neutrophils 2.83 10 3/uL Lymphocytes 0.7 10 3/uL Monocytes 0.7 10 3/uL Eosinophils 0.1 10 3/uL Basophils 0.1 10 3/uL Neutrophil % 64.3 % Lymphocyte % 14.8 % Monocyte % 15.9 % Eosinophil % 2.7 % Basophils % 1.8 % NRBC % 0 % Impression: 1. Patient with bilateral invasive breast cancer, both locally advanced. The right breast cancer was grade 1 infiltrating ductal carcinoma, post treatment stage IIA (ypT1c, ypN2a, M0), ER/OR positive and HER-2/bernadine negative. The left breast cancer was grade 3 infiltrating ductal carcinoma, post treatment stage at least IB (ypT2, ypN2a, M0), ER/OR positive and HER-2/bernadine positive. 2. She underwent bilateral ultrasound directed breast biopsies on 04/06/2019, and she underwent ultrasound directed needle biopsy of a right axillary lymph node on 05/19/2019. 3. She was given neoadjuvant chemotherapy with TCH-P, cycle 1 beginning on 06/02/2019. She experienced multiple toxicities including diarrhea and neuropathy, severe enough to require modifications in her treatment. The chemotherapy was stopped after 4 cycles due to toxicity. 4. As of 11/01/2019 she resumed treatment with single agent Herceptin at a 3-week dosing interval. 5. On 11/17/2019 she underwent bilateral modified radical mastectomies. Her other medical illnesses include: 6. Hypertension. 7. Hypothyroidism. 8. She has a history of endometrial cancer for which she underwent hysterectomy/bilateral salpingo-oophorectomy and postoperative HDR implant radiation in 2014. On 11/22/2019 she continued with cycle 2 of single agent Herceptin. She tolerated it well. She has had very gradual recovery from the chemotherapy-related toxicities. She continues to show improvement in her leg weakness and performance status. As of 01/03/2020 her systemic adjuvant therapy was changed from single agent Herceptin to Kadcyla at 3.6 mg/kg by IV infusion every 3 weeks. At that time she also started adjuvant hormonal therapy with anastrozole 1 mg daily. She completed 2 cycles of Kadcyla with no adverse effects. She was then seen by the radiation oncologist and she began prophylactic chest wall radiation. Her 3rd cycle of Kadcyla was delayed due to neutropenia. She went on to complete radiation on 03/06/2020, total dose 5040 cGy to each chest wall. She had then presented with increased shortness of breath, and her CT pulmonary angiogram on 04/09/2020 showed new fibrotic changes in both lungs, felt to be consistent with radiation pneumonitis. She has now completed a course of steroid therapy. During this time she has continued adjuvant hormonal therapy with anastrozole, but her Kadcyla has remained on hold. She had some improvement in her performance status with the steroid therapy, though recently she has been a little more short of breath again. There was an increase in her liver enzymes, but that has improved following a decrease in the prednisone dosage to 10 mg daily. She continues to have significant pain in the lower extremities, which is presumed to be neuropathic. She also continues to have some shortness of breath. Thus far she seems to be tolerating the anastrozole with no adverse effects other than I am not entirely certain that may not be contributing to her pain. Plan: She will continue adjuvant hormonal therapy with anastrozole 1 mg daily. She will continue prednisone, but I will now reduce the dosage to 5 mg daily. I will see her again in 1 month. At that time she also will be scheduled for a baseline DEXA scan, as I do not think she has had any prior evaluation for her bone health. Signed By: Tab Rascon M.D. <<Signature on File>>
== END 2020-06-25 23:59 | disposition home or self-care (01) ==
LOC: ONCMED 05:30
PROVIDERS: PCP Nurse Practitioner Family; Visit Provider Internal Medicine Medical Oncology
DX: C50.812 Malignant neoplasm of overlapping sites of left female breast (principal); C50.811 Malignant neoplasm of overlapping sites of right female breast; Z17.0 Estrogen receptor positive status [ER+]; I10 Essential (primary) hypertension; E03.9 Hypothyroidism, unspecified; Z85.41 Personal history of malignant neoplasm of cervix uteri; Z90.710 Acquired absence of both cervix and uterus; Z92.21 Personal history of antineoplastic chemotherapy; Z79.52 Long term (current) use of systemic steroids; Z79.818 Long term (current) use of other agents affecting estrogen receptors and estrogen levels
CPT/HCPCS: 36591; 71260; 74177; 80053; 85025; 85651; 99214; Q9967

== ENCOUNTER 2020-06-29 09:31 | Outpatient (CLI) | payer MEDICARE, OTHER, SELFPAY ==
--- NOTE | 2020-06-29 09:36 | XR_ITS ---
WS: [id number] SCREENING DEXA SCAN [employer] CLINICAL INFORMATION: ASYMPTOMATIC POSTMENOPAUSAL STATE, STEROID THERAPY COMPARISON: None. FINDINGS: The L1-L4 bone mineral density measures 0.889 g/cm2. This corresponds to a T score score of -2.4 and Z score of -1.3. Left femoral neck bone mineral density measures 0.835 g/cm2. This corresponds to a T score of -1.4 an d Z score of -0.4. Right femoral neck bone mineral density measures 0.847 g/cm2. This corresponds to a T score -1.3of an d Z score of -0.3. Mean femoral neck bone mineral density measures 0.841 g/cm2. This corresponds to a T score of -1.3 an d Z score of -0.3. XR/XR DEXA axial skeleton* [id number] IMPRESSION: Osteopenia approaching osteoporosis in the lumbar spine. Osteopenia in the femo ral necks. Patient's FRAX calculated 10 year probability for major osteoporotic fracture i s 26.5 % and osteoporotic hip fracture is 4.9%.
== END 2020-06-29 09:32 | disposition home or self-care (01) ==
LOC: RADWPI 09:34
PROVIDERS: PCP Nurse Practitioner Family; Visit Provider Internal Medicine Medical Oncology
DX: Z78.0 Asymptomatic menopausal state (principal); Z79.52 Long term (current) use of systemic steroids; M85.88 Other specified disorders of bone density and structure, other site
CPT/HCPCS: 77080

== ENCOUNTER 2020-07-05 06:36 | Outpatient (RCR) | payer MEDICARE, OTHER, SELFPAY ==
[2020-07-05] MEDS: alteplase 1 mg/mL SDV 2 mL 2 MG IV (10:38)
[2020-07-05 10:46] LABS: Basophils # 0.1 10^3/uL (0.0-0.1); Basophils % 2.2 %; Eosinophils # 0.1 10^3/uL (0.0-0.8); Eosinophils % 3.1 %; Hematocrit 41.1 % (37.0-47.0); Lymphocytes # 0.6 10^3/uL (0.8-4.8); Lymphocytes % 17.9 %; Mean Corpuscular HGB Conc 31.6 g/dL (30.0-36.0); Mean Corpuscular Hemoglobin 35.3 pg (28.0-34.0); Mean Corpuscular Volume 111.7 fL (81-99); Mean Platelet Volume 11.4 fL (7.4-10.4); Monocytes # 0.5 10^3/uL (0.2-0.9); Monocytes % 14.5 %; Neutrophils # 2.01 10^3/uL (1.8-7.7); Nucleated Red Blood Cells % 0 %; Platelet Count 59 10^3/cmm (130-400); Red Blood Count 3.68 10^6/uL (4.1-5.3); Red Cell Distribution Width 12.6 % (12.1-15.1); White Blood Count 3.2 10^3/uL (4.0-10.0)
[2020-07-05 11:16] LABS: Alanine Aminotransferase 25 U/L (0-33); Albumin Level 3.3 g/dL (3.5-5.2); Alkaline Phosphatase 104 IU/L (35-105); Anion Gap 12.7 (5-19); Aspartate Amino Transferase 29 U/L (0-32); Blood Urea Nitrogen 19 mg/dL (8-23); Carbon Dioxide 24 mmol/L (22-29); Chloride 105 mmol/L (98-107); Globulin 2.8 g/dL (1.3-4.6); Glomerular Filtration Rate 71.3 mL/min (90-130); Glucose 101 mg/dL (65-115); Osmolality Calculated 283 mOsm/kg (285-295); Potassium 3.7 mmol/L (3.5-5.1); Sodium 138 mmol/L (136-145); Total Bilirubin 0.6 mg/dL (0.15-1.2); Total Protein 6.1 g/dL (6.6-8.7); Vitamin B12 398 pg/mL (232-1245)
[2020-07-05 14:34] LABS: 25 Hydroxy Vitamin D 9 ng/mL (30-100); Thyroid Stimulating Hormone 2.34 uIU/mL (0.27-4.20)
--- NOTE | 2020-07-14 14:01 | ONC FU_ITS ---
[facility] Patient Note Patient: Bee Zheng Unit #: [id number]: [id number] Dictated By: Christopher KatzDate of Visit: Jul 05, 2020 Onc MED Follow-Up/Prog Note Chief Complaint: Bilateral breast cancer. History of Present Illness: Ms Zheng is a 70 year-old woman with bilateral invasive breast cancer, both locally advanced. The right breast was grade 1 infiltrating ductal carcinoma, post treatment stage IIA (ypT1c, ypN2a, M0), ER/SC positive and HER-2/bernadine negative. The left breast cancer was grade 3 infiltrating ductal carcinoma, post treatment stage at least IB (ypT2, ypN2a, M0), ER/SC positive and HER-2/bernadine positive. She had presented with gradually worsening swelling and firmness in her breasts after she had sustained a chest injury in a fall about 9 months ago. Bilateral mammograms on 03/23/2019 were BI-RADS 5, highly suggestive of malignancy. Findings included areas of dense asymmetry in the central right breast measuring 3.5 cm and in the central left breast measuring 4.5 by 3.9 cm. The right breast ultrasound showed an irregular hypoechoic mass at 12:00, middle depth, measuring 3.5 x 2.2 cm. Also noted was eccentric thickening of a lymph node in the right axilla. The left breast ultrasound showed a large amount of shadowing within the central breast mass containing calcifications at 12:00, measuring 4.6 x 3.7 cm. There were small benign-appearing lymph nodes on the left. She underwent bilateral ultrasound-guided biopsies on 04/06/2019. The left breast showed grade 3 infiltrating ductal carcinoma with a minor DCIS component. The breast prognostic profile showed ER positive at 87% and SC positive at 72%. There was overexpression of HER-2/bernadine, 3+ by IHC and amplification ratio by FISH of 2.3 with 7.0 HER-2 copies/cell. The Ki-67 was unfavorable at 22%. The right breast showed grade 2 infiltrating ductal carcinoma. A subsequent prognostic profile on the right breast biopsy showed ER positive at 87% and SC positive at 21%. That tumor was negative for overexpression of HER-2/bernadine, 1+ by IHC and amplification ratio by FISH of 1.0 with 2.4 HER-2 copies/cell. Staging PET/CT on 05/07/2019 showed FDG avid right breast lesion measuring 2.1 cm, SUV 13.7, and a solitary hypermetabolic right axillary lymph node with SUV 5.3, consistent with local metastatic disease. Other right axillary lymph nodes were too small to characterize by PET. The left breast showed 2 nearly contiguous lesions, the more dominant measuring 2.5 x 3.8 cm with SUV 8.3. The more inferior and lateral lesion measured 1.3 x 1.5 cm with SUV 11.7. Left axillary lymph nodes were too small to characterize by PET. There were no areas of uptake to suggest any other metastatic disease. A needle biopsy of the right axillary lymph node on 05/19/2019 showed metastatic carcinoma most consistent with breast primary. Given those findings and with HER-2/bernadine positive disease in the left breast, she was recommended to undergo neoadjuvant chemotherapy with TCH-P. On 06/02/2019 she began cycle 1 of neoadjuvant chemotherapy with TCH-P. She tolerated the treatment without acute toxicity. She subsequently developed pretty severe diarrhea, beginning around a 3 or 4. It lasted for 2 weeks. She continued with cycle 2 on 06/28/2019. That treatment was complicated by a pretty severe skin eruption, and she continued to have diarrhea. With cycle 3 on 07/26/2019, it was opted to omit the docetaxel. With had cycle there was no recurrence of skin eruption, but she continued to have severe diarrhea. With cycle 4, on 08/23/2019, Dr Rascon opted to admit the Perjeta and replace the taxane portion of her chemotherapy with Abraxane. On 08/29/2019 she was admitted to the hospital with severe pancytopenia. She continued to have diarrhea and she also developed significant liver dysfunction. She required transfusion of PRBC and platelets. She had uneventful recovery of her white blood cell count, but she continued to have severe thrombocytopenia at discharge, requiring additional outpatient platelet pheresis. Dr Rascon had seen her for a follow-up visit on 09/20/2019. Given the multiple toxicities she had experienced, it was opted not to attempt any further chemotherapy. A restaging PET/CT on 09/24/2019 showed primary right breast carcinoma measuring 1.6 cm with SUV 4.6, significantly improved from the prior study. The solitary right axillary lymph node had resolved. The nearly contiguous left breast lesions were reported to have SUV of 3.1, also representing a significant response to therapy. At her follow-up visit on 10/25/2019 she still had very limited activity, and she also continued to have significant lower extremity edema. At that point her treatment remained on hold. Her medical history is otherwise significant in that she had presented in 2014 anemia, severe enough to require transfusion. This was ultimately determined to be due to endometrial cancer, for which she underwent hysterectomy/bilateral salpingo-oophorectomy. Those records are not available at this time. She indicates that there was no lymph node involvement. She apparently did receive postoperative radiation with HDR implant. There has been no evidence of recurrence of the endometrial cancer. Her other medical illnesses include hypertension and hypothyroidism. She has a history of smoking 1-2 packs of cigarettes daily for 50 years. She quit smoking in 2014. She has alcohol use of at least a 6-pack of beer daily. INTERIM HISTORY: At her follow-up visit on 11/01/2019 she had recovered sufficiently to resume treatment with single agent Herceptin at a 3-week dosing schedule. She tolerated it without significant toxicity. On 11/17/2019 she underwent bilateral modified radical mastectomies. Pathology on the left breast showed grade 2 invasive ductal carcinoma, multifocal, with the largest focus measuring 2.8 cm in maximum diameter. There was invasion into the dermis, but without skin ulceration. There was a small component of nuclear grade 1 ductal carcinoma in situ. The margins were negative. There was involvement in 6 of 8 axillary lymph nodes with the largest metastatic deposit measuring 6 mm. Pathologic staging was ypT2, ypN2a. The right breast showed grade 1 invasive ductal carcinoma measuring 1.3 cm in maximum diameter. There was an extensive component of nuclear grade 2 intraductal cancer, estimated at 13 mm. The margins were uninvolved. There was involvement in 8 of 8 axillary lymph nodes with the largest metastatic deposit measuring 5 mm. Pathologic staging was ypT1c, ypN2a. She had no complications with the surgery. She was able to continue single agent Herceptin at the 3- week dosing schedue. As of 12/13/2019 she had received her 3rd cycle. During that time she did show gradual improvement in her neuropathy and performance status. As of her visit on 01/03/2020 I opted to change her systemic therapy to Kadcyla at 3.6 mg/kg by IV infusion. At that time, she also began adjuvant hormonal therapy with anastrozole 1 mg daily. She tolerated the initial infusion of Kadcyla with no adverse effects. She continued with cycle 2 on 01/24/2020, and she began chest wall radiation on 01/25/2020. Her 3rd cycle of Kadcyla was delayed due to neutropenia. She went on to complete radiation on 03/06/2020, 5040 cGy to each chest wall. She had then presented with increased shortness of breath. Her CT pulmonary angiogram on 04/09/2020 showed no evidence for pulmonary embolus. She was small right pleural and pericardial effusions, which were new. The most significant finding was fibrotic appearing airspace infiltrates in the mid and upper lungs anteriorly, also new. The findings were felt to be most consistent with radiation pneumonitis. She began on steroid therapy. As of her follow-up visit on 05/01/2020, she was showing clinical improvement, and her prednisone dosage was decreased to 10 mg daily. Her restaging CT scans on 05/31/2020 showed moderate chronic emphysematous changes, with no acute pulmonary infiltrates. 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 There was also mild but stable dilatation of the main pulmonary arteries. There was no evidence of metastatic disease in the chest, abdomen, or pelvis. Ms. Zhneg is here today for follow-up. She states overall she is feeling much better. She states she is eating better for her but is eating all the wrong things . She states she has been eating some high fat foods because that is what taste good and she has been craving them. She states she has been having some dark looking stools that are slimy . But she states she is been eating cake donuts, [employer], big max, chili, lots of tomatoes and things that she thinks would aggravate her stools. She has not noticed any shannan bleeding or blood with her bowel movements. She denies any new shortness of breath orthopnea. She states she has dyspnea but no worse than what is normal for her. She does have a cough but states is nonproductive. She states it is a smoker's cough . She has been getting up and getting around more. She is using her walker for ambulation assistance less and less. She states overall she is feeling stronger. She is very jovial today and states that she does feel good overall. She is currently on prednisone 5 mg daily and this is working well for her. She denies any joint pain. We did discuss her DEXA scan from June 29, 2020 which reveals a T score of a -2.4 of the L1-L4 bone mineral density the left femoral neck measures a T score -1.4 right femoral neck T score was -1.3. She does have documented significant osteo-porosis nearing osteopenia in the lumbar spine will see if we can obtain prior authorization to get her treated for the osteoporosis with Xgeva. Her 10-year probability by FRAX calculation for a major osteoporotic fracture is 26.5% and osteoporotic hip fracture was 4.9%. She does not tolerate nonsteroidals so therefore I do not feel that she would tolerate any kind of oral agent for osteoporosis. She states the neuropathy in her legs is stable and seems to be improving somewhat. She states it is deftly not getting worse at this point. Her ECOG is 1. Past Medical History: Anemia Diverticulosis History of uterine cancer Hypertension Hypothyroidism Past Surgical History: Hernia repair Tubal ligation Mastectomy in 2019 - double mastectomy Hysterectomy/bilateral salpingo-oophorectomy in 2014 Allergies: Levaquin Medications: Aleve 1 Tablet (of 220 mg) Tablet Oral PRN Anastrozole 1 Tablet (of 1 mg) Oral daily Aspirin 1 Tablet (of 81 mg) Oral daily Imodium A-D 2 Tablet (of 2 mg) Oral b.i.d. PRN Lasix 1 Tablet (of 40 mg) Oral daily PRN Levothyroxine Sodium 1 (112 mcg) Tablet Oral daily LORazepam 0.5 - 1 Tablet (of 1 mg) Oral t.i.d. PRN Magnesium 1 Tablet Oral b.i.d. Potassium Chloride ER 1 Tablet (of 10 meq) Tablet, controlled release Oral daily Prochlorperazine Maleate 1 Tablet (of 10 mg) Oral q 4 hours PRN Family History: Ms. Zheng's mother at age 84: cancer of unknown primary. Ms. Zheng's father at age 80: congestive heart failure. Ms. Zheng has 3 brothers: 3 . She has 4 sisters: 2 alive, 2 . Ms. Zheng's first sister's breast cancer. Father during surgery for cerebral aneurysm. Mother had lung cancer and breast cancer, and a sister has been treated for breast cancer. A sister of stroke associated with cerebral aneurysm. She had 3 brothers, all of whom also are . 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 Ms. Zheng quit smoking 4 years ago but had smoked 1.5 packs/day for 50 years. She is an active drinker.She consumes 6 drinks/day 7 days/week. She has a history of smoking 1-2 packs of cigarettes daily for 50 years. She quit smoking in 2014. She has daily alcohol use of at least a 6-pack of beer daily. Review Of Symptoms: Constitutional Denies fevers, chills, night sweats. Some fatigue but better overall. Allergic/Immunologic No reactions. Eyes Denies significant visual changes. No diplopia. No amaurosis. ENMT Denies changes in hearing, sore throat, difficulty or changes in swallowing ability, and/or sinus drainage. Endocrine No diabetes, thyroid disease or hormone replacement. Denies hot flashes or night sweats. Hematologic/Lymphatic Denies easy bruising or bleeding. The patient denies any tender or palpable lymph nodes. Breasts No current concerns. Respiratory She is having dyspnea on exertion- about the same , but denies chest pain, cough or hemoptysis. Denies orthopnea. Cardiovascular Denies anginal chest pain, palpitations or orthopnea. Gastrointestinal Denies nausea, vomiting, GI bleeding, or constipation. Denies change in bowel habits and/or stool color, no heartburn or early satiety. She denies diarrhea. She states she has had some slimy stools. Genitourinary (F) No hematuria, hesitancy, incontinence, vaginal bleeding, discharge or other problems with urination. Musculoskeletal Denies joint pain, swelling or redness. No decreased range of motion. Integumentary Denies rashes, inflammation, ulcerations or skin changes. Neurologic Denies headache, blurred vision, and no areas of focal weakness or numbness. Normal-assisted gait. No increase in neuropathy symptoms. Maybe some better . Psychiatric Denies insomnia, depression, kat or mood swings. Vital Signs: Performed on Jul 05, 2020 11:40 Height - 66.00 in Weight - 180.4 lbs (HIGH) BSA - 1.91 sq.m BMI - 29.12 Temperature - 97.0 F (LOW) Pulse - 82 /min Respiration - 18 /min BP - 115/79 mm(hg) O2 Sat - 88 % (LOW) Pain - 0,1 - No physically strenuous activity, but ambulatory and able to carry out light or sedentary work (e.g. office work, light house work). (ECOG) Physical Examination: Constitutional Alert, oriented, no acute distress. Skin pink, warm and dry. Head Normocephalic; atraumatic. Eyes Conjunctivae and sclerae are clear and without icterus. Pupils are reactive and equal. ENMT No oral exudates, ulcers, masses, thrush or mucositis. Oropharynx clear. Tongue normal. Neck Supple without masses or thyromegaly. No jugular venous distension. Hematologic/Lymphatic No petechiae or purpura. No tender or palpable lymph nodes in the cervical or supraclavicular areas. Respiratory Lungs are clear to auscultation without rhonchi or wheezing. Cardiovascular Regular rate and rhythm of heart without murmurs,clicks, gallops or rubs. Chest Chest wall slightly pink from radiation field, but no peeling or exudate noted. Breasts bilateral mastectomy sites have healed well. Abdomen Non-tender, non-distended, no masses, ascites. Back/Spine Non-tender to palpation. Extremities No visible deformities, no cyanosis, clubbing or edema. Musculoskeletal No tenderness or swelling, normal range of motion without obvious weakness. Integumentary No rashes or lesions. Neurologic No sensory or motor deficits, normal cerebellar function, normal slow gait today. Psychiatric Alert and oriented times three. Coherent speech. Verbalizes understanding of our discussions today. Laboratory:Test performed on Jul 05, 2020 10:16 Sodium 138 mmol/L Vitamin B12 398 pg/mL Potassium 3.7 mmol/L Chloride 105 mmol/L CO2 24 mmol/L Anion Gap 12.7 BUN 19 mg/dL Creatinine 0.8 mg/dL Cr Clearance (Est) 85.9800 mL/min eGFR 71.3 mL/min Glucose 101 mg/dL Calcium 9.0 mg/dL Osmolality - Calculated 283 mOsm/kg Protein, Total 6.1 g/dL Albumin 3.3 g/dL Globulin 2.8 g/dL Bilirubin, Total 0.6 mg/dL ALT (SGPT) 25 U/L AST (SGOT) 29 U/L Alkaline Phosphatase 104 IU/L WBC 3.2 10 3/uL RBC 3.68 10 6/uL HGB 13.0 g/dL HCT 41.1 % MCV 111.7 fL MCH 35.3 pg MCHC 31.6 g/dL RDW 12.6 % Platelet Count 59 10 3/cmm MPV 11.4 fL Neutrophils 2.01 10 3/uL Lymphocytes 0.6 10 3/uL Monocytes 0.5 10 3/uL Eosinophils 0.1 10 3/uL Basophils 0.1 10 3/uL Neutrophil % 62.0 % Lymphocyte % 17.9 % Monocyte % 14.5 % Eosinophil % 3.1 % Basophils % 2.2 % NRBC % 0 % Impression: 1. Patient with bilateral invasive breast cancer, both locally advanced. The right breast cancer was grade 1 infiltrating ductal carcinoma, post treatment stage IIA (ypT1c, ypN2a, M0), ER/SC positive and HER-2/bernadine negative. The left breast cancer was grade 3 infiltrating ductal carcinoma, post treatment stage at least IB (ypT2, ypN2a, M0), ER/SC positive and HER-2/bernadine positive. 2. She underwent bilateral ultrasound directed breast biopsies on 04/06/2019, and she underwent ultrasound directed needle biopsy of a right axillary lymph node on 05/19/2019. 3. She was given neoadjuvant chemotherapy with TCH-P, cycle 1 beginning on 06/02/2019. She experienced multiple toxicities including diarrhea and neuropathy, severe enough to require modifications in her treatment. The chemotherapy was stopped after 4 cycles due to toxicity. 4. As of 11/01/2019 she resumed treatment with single agent Herceptin at a 3-week dosing interval. 5. On 11/17/2019 she underwent bilateral modified radical mastectomies. Her other medical illnesses include: 6. Hypertension. 7. Hypothyroidism. 8. She has a history of endometrial cancer for which she underwent hysterectomy/bilateral salpingo-oophorectomy and postoperative HDR implant radiation in 2014. On 11/22/2019 she continued with cycle 2 of single agent Herceptin. She tolerated it well. She has had very gradual recovery from the chemotherapy-related toxicities. She continues to show improvement in her leg weakness and performance status. As of 01/03/2020 her systemic adjuvant therapy was changed from single agent Herceptin to Kadcyla at 3.6 mg/kg by IV infusion every 3 weeks. At that time she also started adjuvant hormonal therapy with anastrozole 1 mg daily. She completed 2 cycles of Kadcyla with no adverse effects. She was then seen by the radiation oncologist and she began prophylactic chest wall radiation. Her 3rd cycle of Kadcyla was delayed due to neutropenia. She went on to complete radiation on 03/06/2020, total dose 5040 cGy to each chest wall. She had then presented with increased shortness of breath, and her CT pulmonary angiogram on 04/09/2020 showed new fibrotic changes in both lungs, felt to be consistent with radiation pneumonitis. She has now completed a course of steroid therapy. During this time she has continued adjuvant hormonal therapy with anastrozole, but her Kadcyla has remained on hold. She had some improvement in her performance status with the steroid therapy, though recently she has been a little more short of breath again. There was an increase in her liver enzymes, but that improved following a decrease in the prednisone dosage to 10 mg daily. Her LFTS are now normal and her Prednisone is at 5 mg daily. She continued to have significant pain in the lower extremities, which was presumed to be neuropathic. She also continued to have some shortness of breath. Thus far she seems to be tolerating the anastrozole with no adverse effects other than it is not entirely certain that may not be contributing to her pain. She states her overall pain is improving and she does not think it is interferring with her quality of life at this time. Plan: 1. continue adjuvant hormonal therapy with anastrozole 1 mg daily. The Kadcyla remains on hold due to thrombocytopenia and neutropenia. 2. She will continue prednisone @ 5 mg daily. 3. DEXA scan from 06/29/2020 Reports a L1-L4 bone mineral density with a T score of a -2.4 left femoral neck bone mineral density T score -1.4 right femoral neck bone mineral density T score -1.3. 4. Labs from today were reviewed in detail and discussed with Ms. Zheng and a copy was given to her. White count 3.2 hemoglobin 13.0 platelets 59,000 ANC is 2000 potassium 3.7 creatinine 0.8 LFTs are normal vitamin B-12 level is normal at 398. 5. We will ask for a prior authorization for Xgeva and will plan to start this with her follow-up in 1 month. She has significant osteopenia of the L1-L4 with a T score -2.4. She also is on aromatase inhibitor and high risk for osteoporosis. She does not tolerate oral agents due to GI upset. 6. We will plan to see her back in 1 month with CBC CMP and follow-up. We will plan to initiate the Xgeva if approved at that time. 7. Mrs. Zheng instructed to contact us in the interim should questions or problems arise. She is aware that her platelet count is 59,000 although she has been low in the past she was again reminded to let us know if she has any bruising or bleeding. She did not feel the dark stools or actual blood she states is more from her high-fat diet but she is been encouraged to watch this. I did offer to do fecal testing for blood but she wanted to wait at this time. She will let us know if she feels there is any concern prior to her follow-up in 1 month. Signed By: Loly Katz, CNP Tab Rascon MD <<Signature on File>>
== END 2020-07-25 23:59 | disposition home or self-care (01) ==
LOC: ONCMED 06:36
PROVIDERS: PCP Nurse Practitioner Family; Visit Provider Nurse Practitioner
DX: C50.811 Malignant neoplasm of overlapping sites of right female breast (principal); C50.812 Malignant neoplasm of overlapping sites of left female breast; Z17.0 Estrogen receptor positive status [ER+]; D70.1 Agranulocytosis secondary to cancer chemotherapy; T45.1X5A Adverse effect of antineoplastic and immunosuppressive drugs, initial encounter; D69.59 Other secondary thrombocytopenia; I10 Essential (primary) hypertension; E03.9 Hypothyroidism, unspecified; Z85.42 Personal history of malignant neoplasm of other parts of uterus; Z92.3 Personal history of irradiation
CPT/HCPCS: 36593; 80053; 82306; 82607; 84443; 85025; 96375; 99214; J2997

== ENCOUNTER 2020-08-13 06:00 | Outpatient (RCR) | payer MEDICARE, OTHER, SELFPAY ==
[2020-08-13 09:27] LABS: Basophils # 0.1 10^3/uL (0.0-0.1); Basophils % 2.1 %; Eosinophils # 0.1 10^3/uL (0.0-0.8); Eosinophils % 2.1 %; Hematocrit 42.2 % (37.0-47.0); Lymphocytes # 0.9 10^3/uL (0.8-4.8); Mean Corpuscular HGB Conc 33.2 g/dL (30.0-36.0); Mean Corpuscular Hemoglobin 34.7 pg (28.0-34.0); Mean Corpuscular Volume 104.7 fL (81-99); Mean Platelet Volume 10.9 fL (7.4-10.4); Monocytes # 0.6 10^3/uL (0.2-0.9); Monocytes % 12.5 %; Neutrophils # 3.37 10^3/uL (1.8-7.7); Neutrophils % 65.7 %; Nucleated Red Blood Cells % 0 %; Platelet Count 102 10^3/cmm (130-400); Red Blood Count 4.03 10^6/uL (4.1-5.3); Red Cell Distribution Width 12.8 % (12.1-15.1); White Blood Count 5.1 10^3/uL (4.0-10.0)
[2020-08-13 09:54] LABS: Alanine Aminotransferase 26 U/L (0-33); Albumin Level 3.7 g/dL (3.5-5.2); Alkaline Phosphatase 142 IU/L (35-105); Aspartate Amino Transferase 31 U/L (0-32); Blood Urea Nitrogen 15 mg/dL (8-23); Calcium 10.1 mg/dL (8.5-10.5); Carbon Dioxide 25 mmol/L (22-29); Chloride 105 mmol/L (98-107); Globulin 3.2 g/dL (1.3-4.6); Glomerular Filtration Rate 62.3 mL/min (90-130); Glucose 99 mg/dL (65-115); Osmolality Calculated 291 mOsm/kg (285-295); Sodium 140 mmol/L (136-145); Total Bilirubin 0.7 mg/dL (0.15-1.2); Total Protein 6.9 g/dL (6.6-8.7)
--- NOTE | 2020-08-13 12:06 | ONCRAD EPV_ITS ---
Radiation Oncology Established Patient Visit Patient: Marce Gamboa [id number] : 1950 Age: 70 Sex: Female Dictated by: Dr. Saul Smith Date of Service: 08/13/2020 Referring Physician(s) : Dr. Vern Pompa Diagnosis: Infiltrating ductal carcinoma involving the bilateral breasts initially diagnosed 03/2019. Right Breast: Stage IIA (ypT1c ypN2a M0) grade 1 infiltrating ductal carcinoma, ER/IN positive, HER-2/bernadine negative Left breast: IB (ypT2 ypN2a M0) grade 3 infiltrating ductal carcinoma, ER/IN positive, HER-2/bernadine positive Treatment rendered: -) Neoadjuvant TCH-P systemic chemotherapy (06/02/2019-08/23/2019). With cycle 4, Perjeta was omitted and the taxane was replaced with Abraxane. Herceptin therapy later switched to Kadcyla. Systemic therapy was complicated with severe pancytopenia, peripheral neuropathy necessitating a walker to assist with ambulation, and pericardial effusion. Anastrozole was initiated 01/03/2020. -) Bilateral modified radical mastectomy (11/17/2019) -) Adjuvant radiation therapy to the bilateral anterior chest wall and draining lymphatics inclusive of the internal mammary lymph nodes (~2nd to 4th intercostal space) to an aggregate dose of 50.4 Gy/28fx (01/25/2020-03/06/2020). Treatment was complicated with presumed radiation pneumonitis and treated with steroids (V20 30%, Mean Lung dose 16 Gy). Current History: The patient is seen in follow-up, and she reports breathing better. She has no range of motion limitations in her bilateral arms, she has no lymphedema, she reports no bone pain, and no new lumps or bumps. She does however report that she has had episodic blood in her stool and she has never had a colonoscopy. Current Medications: Aleve, anastrozole, anastrozole, aspirin, calcium, cholecalciferol, dexamethasone, euthyrox, gabapentin, gas Relief, imodium A-D, kadcyla, lasix, lasix, levothyroxine Sodium, lORazepam, lORazepam, magnesium, magnesium Oxide, potassium Chloride ER, potassium Chloride ER, predniSONE, prochlorperazine Maleate, prochlorperazine Maleate. Allergies: Levaquin. Current Complaints / Review of Systems: Constitutional - Complains of mild fatigue. Denies lack of appetite, fever, night sweats and change in weight. Eyes - Denies blurred vision and double vision. ENMT - Complains of problems with hearing in the left ear. Denies dysphagia, ear pain, mouth dryness, stomatitis, altered taste and tinnitus. Neck - Denies neck pain. Integumentary - Denies rash. Breasts - No chest wall pain. Cardiovascular - Complains of edema in both legs. Denies arrhythmias and chest pain. Respiratory - Complains of cough occasionally from sinus drainage. Complains of dyspnea associated with normal activity. Denies hemoptysis and wheezing. Gastrointestinal - Complains of occasional constipation. Complains of melena / GI bleeding which can happen in the morning and it w?ill be mixed with mucus. These episodes are improving with change in diet.. Denies abdominal pain, diarrhea, heartburn / dyspepsia, nausea and vomiting. Genitourinary (F) - Complains of nocturia gets up every 2 to 3 hours per night. Denies dysuria, frequency, urgency, vaginal discharge / bleeding and vaginal spotting. Musculoskeletal - Complains of joint pain in the lower back. Denies bone pain. Neurologic - Complains of dizziness occasionally. Denies headaches. Endocrine - Complains of thyroid disease. Denies diabetes. Hematologic/Lymphatic - Denies tender or enlarged lymph nodes.. Vital Signs: Performed on 08/13/2020 9:43 AM BMI - 30.28 kg/m2 (high), Height - 66.00 in, Weight - 187.6 lbs, Temperature - 98.4 f, Pulse - 91, Respiration - 20, O2 Sat - 94 % (low), Pain - 0 and BP - 105/ 69 mm(hg). Physical Exam: General: Alert and oriented x 3. No acute distress. HEENT: Normocephalic, atraumatic. Extraocular Movements Intact: Pupils Equal, Round, Reactive to Light and Accommodation: Sclerae anicteric. Oral cavity is clear without lesions, masses or ulcers. NECK: Supple without supraclavicular or jugular lymphadenopathy. LUNGS: Clear to auscultation bilaterally without rales, rhonchi or wheeze. Cheat Wall and axillary lymph nodes: Bilateral postmastectomy surgical scars are appreciated. The patient has obvious posttreatment subcutaneous fibrosis and skin telangiectasia most prominently surrounding the bilateral mastectomy scar. There is no palpable abnormality on the anterior chest wall or bilateral axilla concerning for disease recurrence. HEART: Regular rate and rhythm, normal S1 and S2 without murmur, gallop or rub. MUSCULOSKELETAL: No tenderness or percussion pain over the axial skeleton, scapulae or pelvis. ABDOMEN: Soft, nontender, nondistended without masses or organomegaly. Bowell sounds are present. EXTREMITIES: No peripheral edema is identified. There is no apparent range of motion difficulties in her arms bilaterally. NEUROLOGIC: Cranial nerves II ???XII are grossly intact. Normal sensation, strength 5/5 in all extremities, normal gait, no ataxia. Performance Status: 1 - No physically strenuous activity, but ambulatory and able to carry out light or sedentary work (e.g. office work, light house work). (ECOG) Lab: None pending. Test performed on 07/05/2020 10:16 AM WBC - 3.2 10 3/ul (low), RBC - 3.68 10 6/ul (low), MCV - 111.7 fl (high), MCH - 35.3 pg (high), Platelet Count - 59 10 3/cmm (low), MPV - 11.4 fl (high), Lymphocytes - 0.6 10 3/ul (low), eGFR - 71.3 ml/min (low), Osmolality - Calculated - 283 mosm/kg (low), Protein, Total - 6.1 g/dl (low) and Albumin - 3.3 g/dl (low). Impression: The patient is a 70-year-old female with a history of uterine cancer (s/p surgical staging and adjuvant vaginal brachytherapy by report) and infiltrating ductal carcinoma involving the bilateral breasts that was initially diagnosed on 03/2019 (see details listed above). With regards to her bilateral breast cancer, she was treated with neoadjuvant chemotherapy, followed by bilateral mastectomy, followed by endocrine therapy plus adjuvant radiation therapy to the bilateral anterior chest wall and comprehensive draining lymphatics to a total dose of 50.4 Gy/28 fractions (completed 03/06/2020). In follow-up today, she has no clinical concern or physical exam findings suspicious for disease recurrence or significant late complications from radiation treatment. However, I recommend considering to obtain BRCA genetic testing (patient has 3 children and 10 grandchildren) and I also recommend considering to get a colonoscopy. I will discuss this case with Dr. Rascon, who is seeing the patient in follow-up after me, and obtain his opinion regarding colonoscopy and genetic testing. If Dr. Rascon agrees, these tests would be more appropriately managed through Dr. Rascon's office. From a radiation therapy perspective, I recommended that the patient follow-up with us in 1 year. Signed by: 08/13/2020 12:05:57 PM <<Signature on File>> Time spent with patient: CPT Code: CPT Code:
--- NOTE | 2020-08-17 15:07 | ONC FU_ITS ---
Dr. Rascon Patient Follow-Up Note Patient: Bee Zheng Unit #: [id number]: 1950 Dicatated By: Tab Rascon M.D.Date of Visit:Aug 13, 2020 Onc Med Follow-up/Prog Note Chief Complaint: Bilateral breast cancer. History of Present Illness: This is a 70 year-old woman with bilateral invasive breast cancer, both locally advanced. The right breast was grade 1 infiltrating ductal carcinoma, post treatment stage IIA (ypT1c, ypN2a, M0), ER/LA positive and HER-2/bernadine negative. The left breast cancer was grade 3 infiltrating ductal carcinoma, post treatment stage at least IB (ypT2, ypN2a, M0), ER/LA positive and HER-2/bernadine positive. She had presented with gradually worsening swelling and firmness in her breasts after she had sustained a chest injury in a fall about 9 months ago. Bilateral mammograms on 03/23/2019 were BI-RADS 5, highly suggestive of malignancy. Findings included areas of dense asymmetry in the central right breast measuring 3.5 cm and in the central left breast measuring 4.5 by 3.9 cm. The right breast ultrasound showed an irregular hypoechoic mass at 12:00, middle depth, measuring 3.5 x 2.2 cm. Also noted was eccentric thickening of a lymph node in the right axilla. The left breast ultrasound showed a large amount of shadowing within the central breast mass containing calcifications at 12:00, measuring 4.6 x 3.7 cm. There were small benign-appearing lymph nodes on the left. She underwent bilateral ultrasound-guided biopsies on 04/06/2019. The left breast showed grade 3 infiltrating ductal carcinoma with a minor DCIS component. The breast prognostic profile showed ER positive at 87% and LA positive at 72%. There was overexpression of HER-2/bernadine, 3+ by IHC and amplification ratio by FISH of 2.3 with 7.0 HER-2 copies/cell. The Ki-67 was unfavorable at 22%. The right breast showed grade 2 infiltrating ductal carcinoma. A subsequent prognostic profile on the right breast biopsy showed ER positive at 87% and LA positive at 21%. That tumor was negative for overexpression of HER-2/bernadine, 1+ by IHC and amplification ratio by FISH of 1.0 with 2.4 HER-2 copies/cell. Staging PET/CT on 05/07/2019 showed FDG avid right breast lesion measuring 2.1 cm, SUV 13.7, and a solitary hypermetabolic right axillary lymph node with SUV 5.3, consistent with local metastatic disease. Other right axillary lymph nodes were too small to characterize by PET. The left breast showed 2 nearly contiguous lesions, the more dominant measuring 2.5 x 3.8 cm with SUV 8.3. The more inferior and lateral lesion measured 1.3 x 1.5 cm with SUV 11.7. Left axillary lymph nodes were too small to characterize by PET. There were no areas of uptake to suggest any other metastatic disease. A needle biopsy of the right axillary lymph node on 05/19/2019 showed metastatic carcinoma most consistent with breast primary. Given those findings and with HER-2/bernadine positive disease in the left breast, she was recommended to undergo neoadjuvant chemotherapy with TCH-P. On 06/02/2019 she began cycle 1 of neoadjuvant chemotherapy with TCH-P. She tolerated the treatment without acute toxicity. She subsequently developed pretty severe diarrhea, beginning around a 3 or 4. It lasted for 2 weeks. She continued with cycle 2 on 06/28/2019. That treatment was complicated by a pretty severe skin eruption, and she continued to have diarrhea. With cycle 3 on 07/26/2019 I did opt to omit the docetaxel. With had cycle there was no recurrence of skin eruption, but she continued to have severe diarrhea. With cycle 4, on 08/23/2019, I opted to admit the Perjeta and replace the taxane portion of her chemotherapy with Abraxane. On 08/29/2019 she was admitted to the hospital with severe pancytopenia. She continued to have diarrhea and she also developed significant liver dysfunction. She required transfusion of PRBC and platelets. She had uneventful recovery of her white blood cell count, but she continued to have severe thrombocytopenia at discharge, requiring additional outpatient platelet pheresis. I had seen her for a follow-up visit on 09/20/2019. Given the multiple toxicities she had experienced, I opted not to attempt any further chemotherapy. A restaging PET/CT on 09/24/2019 showed primary right breast carcinoma measuring 1.6 cm with SUV 4.6, significantly improved from the prior study. The solitary right axillary lymph node had resolved. The nearly contiguous left breast lesions were reported to have SUV of 3.1, also representing a significant response to therapy. At her follow-up visit on 10/25/2019 she still had very limited activity, and she also continued to have significant lower extremity edema. At that point her treatment remained on hold. Her medical history is otherwise significant in that she had presented in 2014 anemia, severe enough to require transfusion. This was ultimately determined to be due to endometrial cancer, for which she underwent hysterectomy/bilateral salpingo-oophorectomy. Those records are not available at this time. She indicates that there was no lymph node involvement. She apparently did receive postoperative radiation with HDR implant. There has been no evidence of recurrence of the endometrial cancer. Her other medical illnesses include hypertension and hypothyroidism. She has a history of smoking 1-2 packs of cigarettes daily for 50 years. She quit smoking in 2014. She has alcohol use of at least a 6-pack of beer daily. INTERIM HISTORY: At her follow-up visit on 11/01/2019 she had recovered sufficiently to resume treatment with single agent Herceptin at a 3-week dosing schedule. She tolerated it without significant toxicity. On 11/17/2019 she underwent bilateral modified radical mastectomies. Pathology on the left breast showed grade 2 invasive ductal carcinoma, multifocal, with the largest focus measuring 2.8 cm in maximum diameter. There was invasion into the dermis, but without skin ulceration. There was a small component of nuclear grade 1 ductal carcinoma in situ. The margins were negative. There was involvement in 6 of 8 axillary lymph nodes with the largest metastatic deposit measuring 6 mm. Pathologic staging was ypT2, ypN2a. The right breast showed grade 1 invasive ductal carcinoma measuring 1.3 cm in maximum diameter. There was an extensive component of nuclear grade 2 intraductal cancer, estimated at 13 mm. The margins were uninvolved. There was involvement in 8 of 8 axillary lymph nodes with the largest metastatic deposit measuring 5 mm. Pathologic staging was ypT1c, ypN2a. She had no complications with the surgery. She was able to continue single agent Herceptin at the 3- week dosing schedue. As of 12/13/2019 she had received her 3rd cycle. During that time she did show gradual improvement in her neuropathy and performance status. As of her visit on 01/03/2020 I opted to change her systemic therapy to Kadcyla at 3.6 mg/kg by IV infusion. At that time, she also began adjuvant hormonal therapy with anastrozole 1 mg daily. She tolerated the initial infusion of Kadcyla with no adverse effects. She continued with cycle 2 on 01/24/2020, and she began chest wall radiation on 01/25/2020. Her 3rd cycle of Kadcyla was delayed due to neutropenia. She went on to complete radiation on 03/06/2020, 5040 cGy to each chest wall. She had then presented with increased shortness of breath. Her CT pulmonary angiogram on 04/09/2020 showed no evidence for pulmonary embolus. She was small right pleural and pericardial effusions, which were new. The most significant finding was fibrotic appearing airspace infiltrates in the mid and upper lungs anteriorly, also new. The findings were felt to be most consistent with radiation pneumonitis. She began on steroid therapy. As of her follow-up visit on 05/01/2020, she was showing clinical improvement, and her prednisone dosage was decreased to 10 mg daily. Her restaging CT scans on 05/31/2020 showed moderate chronic emphysematous changes, with no acute pulmonary infiltrates. 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 There was also mild but stable dilatation of the main pulmonary arteries. There was no evidence of metastatic disease in the chest, abdomen, or pelvis. With those findings, she continued adjuvant hormonal therapy with anastrozole. I did not attempt to restart Kadcyla or Herceptin. She is seen for a follow-up visit. She has been feeling good generally. She has good energy, though her activity is still limited. ECOG score is 1. Her appetite is good. Her weight is up 7 pounds. She does not have fever, night sweats, or hot flashes. She has no shortness of breath, cough, or chest pain. She has some nausea, which she attributes to sinus drainage. Her bowels fluctuate between constipation and diarrhea. Recently she developed some rectal bleeding. She is not having pain with it. Bladder function has been okay. Her back hurts at times. She has no other joint or bone pain. 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 Medications: Aleve 1 Tablet (of 220 mg) Tablet Oral PRN, Anastrozole 1 Tablet (of 1 mg) Oral daily, Aspirin 1 Tablet (of 81 mg) Oral daily, Imodium A-D 2 Tablet (of 2 mg) Oral b.i.d. PRN, Lasix 1 Tablet (of 40 mg) Oral daily PRN, Levothyroxine Sodium 1 (112 mcg) Tablet Oral daily, LORazepam 0.5 - 1 Tablet (of 1 mg) Oral t.i.d. PRN, Magnesium 1 Tablet Oral b.i.d., Potassium Chloride ER 1 Tablet (of 10 meq) Tablet, controlled release Oral daily, Prochlorperazine Maleate 1 Tablet (of 10 mg) Oral q 4 hours PRN Allergies: Levaquin Review of Systems: Constitutional - She has been feeling pretty good generally. Her energy is better. She is doing light work. Appetite is good. Her weight is up 7 pounds. She has no fever, night sweats, or hot flashes. ECOG score is 1, ENMT - She has sinus drainage. No mouth sores. Her throat was recently scratchy, but just for 1 dayNo difficulty swallowing, Hematologic/Lymphatic - No abnormal bruising or bleeding, Respiratory - No shortness of breath. No cough. No pleuritic pain or hemoptysis, Cardiovascular - No angina pain. No palpitations, Gastrointestinal - She has nausea with the sinus drainage. She has occasional acid reflux. Her bowels fluctuate between constipation and diarrhea. No blood in the stool or black stools, Genitourinary (F) - No dysuria or hematuria. No urinary frequency. No urgency or incontinence, Musculoskeletal - She has back pain at times, Integumentary - No skin rash, Neurologic - She very seldom has headache. She occasionally has lightheadedness. She has neuropathy in her hands and feet, Psychiatric - She has anxiety/depression. She has difficulty sleeping, Constitutional - Complains of mild fatigue. Denies lack of appetite, fever, night sweats and change in weight, Eyes - Denies blurred vision and double vision, ENMT - Complains of problems with hearing in the left ear. Denies dysphagia, ear pain, mouth dryness, stomatitis, altered taste and tinnitus, Neck - Denies neck pain, Integumentary - Denies rash, Breasts - No chest wall pain, Cardiovascular - Complains of edema in both legs. Denies arrhythmias and chest pain, Respiratory - Complains of cough occasionally from sinus drainage. Complains of dyspnea associated with normal activity. Denies hemoptysis and wheezing, Gastrointestinal - Complains of occasional constipation. Recently she has had rectal bleeding, typically in the morning and mixed with mucus. These episodes are improving with change in diet.. Denies abdominal pain, heartburn / dyspepsia, nausea and vomiting, Genitourinary (F) - Complains of nocturia gets up every 2 to 3 hours per night. Denies dysuria, frequency, urgency, vaginal discharge / bleeding and vaginal spotting, Musculoskeletal - Complains of joint pain in the lower back. Denies bone pain, Neurologic - Complains of dizziness occasionally. Denies headaches, Endocrine - Complains of thyroid disease. Denies diabetes, Hematologic/Lymphatic - Denies tender or enlarged lymph nodes. Vital Signs: Performed on Aug 13, 2020 09:43 Height - 66.00 in Weight - 187.6 lbs Temperature - 98.4 F Pulse - 91 Respiration - 20 BP - 105/69 mm(hg) O2 Sat - 94 % (LOW) Pain - 0 Performed on Aug 13, 2020 09:43 BMI - 30.28 kg/m2 (HIGH) Physical Examination: Constitutional - She looks pretty good generally, Eyes - Sclerae nonicteric. Conjunctivae clear, ENMT - No lesions noted in the oral cavity, Hematologic/Lymphatic - No cervical or clavicular adenopathy, Respiratory - Lungs sound clear, Cardiovascular - Heart rhythm is regular. There is no murmur, gallop, or rub noted, Breasts - There are no chest wall lesions noted. There is no axillary adenopathy, Abdomen - Soft. Liver and spleen are not enlarged. There is no abdominal mass or ascites noted and there is no inguinal adenopathy, Extremities - No edema, Neurologic - No focal neurologic deficits noted. Lab/Imaging: Test performed on Aug 13, 2020 09:10 Sodium 140 mmol/L TSH 4.80 uIU/mL Potassium 4.0 mmol/L Chloride 105 mmol/L CO2 25 mmol/L Anion Gap 14.0 BUN 15 mg/dL Creatinine 0.9 mg/dL Cr Clearance (Est) 76.4300 mL/min eGFR 62.3 mL/min Glucose 99 mg/dL Osmolality - Calculated 291 mOsm/kg Calcium 10.1 mg/dL Protein, Total 6.9 g/dL Albumin 3.7 g/dL Globulin 3.2 g/dL Bilirubin, Total 0.7 mg/dL ALT (SGPT) 26 U/L AST (SGOT) 31 U/L Alkaline Phosphatase 142 IU/L WBC 5.1 10 3/uL RBC 4.03 10 6/uL HGB 14.0 g/dL HCT 42.2 % MCV 104.7 fL MCH 34.7 pg MCHC 33.2 g/dL RDW 12.8 % Platelet Count 102 10 3/cmm MPV 10.9 fL Neutrophils 3.37 10 3/uL Lymphocytes 0.9 10 3/uL Monocytes 0.6 10 3/uL Eosinophils 0.1 10 3/uL Basophils 0.1 10 3/uL Neutrophil % 65.7 % Lymphocyte % 17.0 % Monocyte % 12.5 % Eosinophil % 2.1 % Basophils % 2.1 % NRBC % 0 % Impression: 1. Patient with bilateral invasive breast cancer, both locally advanced. The right breast cancer was grade 1 infiltrating ductal carcinoma, post treatment stage IIA (ypT1c, ypN2a, M0), ER/LA positive and HER-2/bernadine negative. The left breast cancer was grade 3 infiltrating ductal carcinoma, post treatment stage at least IB (ypT2, ypN2a, M0), ER/LA positive and HER-2/bernadine positive. 2. She underwent bilateral ultrasound directed breast biopsies on 04/06/2019, and she underwent ultrasound directed needle biopsy of a right axillary lymph node on 05/19/2019. 3. She was given neoadjuvant chemotherapy with TCH-P, cycle 1 beginning on 06/02/2019. She experienced multiple toxicities including diarrhea and neuropathy, severe enough to require modifications in her treatment. The chemotherapy was stopped after 4 cycles due to toxicity. 4. As of 11/01/2019 she resumed treatment with single agent Herceptin at a 3-week dosing interval. 5. On 11/17/2019 she underwent bilateral modified radical mastectomies. Her other medical illnesses include: 6. Hypertension. 7. Hypothyroidism. 8. She has a history of endometrial cancer for which she underwent hysterectomy/bilateral salpingo-oophorectomy and postoperative HDR implant radiation in 2014. On 11/22/2019 she continued with cycle 2 of single agent Herceptin. She tolerated it well. She has had very gradual recovery from the chemotherapy-related toxicities. She continues to show improvement in her leg weakness and performance status. As of 01/03/2020 her systemic adjuvant therapy was changed from single agent Herceptin to Kadcyla at 3.6 mg/kg by IV infusion every 3 weeks. At that time she also started adjuvant hormonal therapy with anastrozole 1 mg daily. She completed 2 cycles of Kadcyla with no adverse effects. She was then seen by the radiation oncologist and she began prophylactic chest wall radiation. Her 3rd cycle of Kadcyla was delayed due to neutropenia. She went on to complete radiation on 03/06/2020, total dose 5040 cGy to each chest wall. She had then presented with increased shortness of breath, and her CT pulmonary angiogram on 04/09/2020 showed new fibrotic changes in both lungs, felt to be consistent with radiation pneumonitis. She has now completed a course of steroid therapy. During this time she has continued adjuvant hormonal therapy with anastrozole, but her Kadcyla has remained on hold. She had some improvement in her performance status with the steroid therapy, though recently she has been a little more short of breath again. There was an increase in her liver enzymes, but that improved following a decrease in the prednisone dosage to 10 mg daily. During follow-up she had further decreased her prednisone dosage to 5 mg daily and she had gradual improvement in her clinical status. At this point she continues to have significant residual neuropathy, particularly in her lower extremities. She also has had recent onset of rectal bleeding. There has been no obvious recurrence/progression of the breast cancer. Plan: She will continue adjuvant hormonal therapy with anastrozole 1 mg daily. She will continue prednisone at 2.5 mg daily for another 2 weeks and then stop. I will schedule pain with Dr. Arauz for evaluation of rectal bleeding. She will be scheduled for a follow-up visit in 1 month. Signed By: Tab Rascon M.D. <<Signature on File>>
== END 2020-08-25 23:59 | disposition home or self-care (01) ==
LOC: ONCMED 06:00
PROVIDERS: PCP Nurse Practitioner Family; Visit Provider Internal Medicine Medical Oncology
DX: C50.811 Malignant neoplasm of overlapping sites of right female breast (principal); C50.812 Malignant neoplasm of overlapping sites of left female breast; K92.1 Melena; I10 Essential (primary) hypertension; E03.9 Hypothyroidism, unspecified; Z17.0 Estrogen receptor positive status [ER+]; Z79.899 Other long term (current) drug therapy; Z90.13 Acquired absence of bilateral breasts and nipples; Z79.811 Long term (current) use of aromatase inhibitors; Z85.42 Personal history of malignant neoplasm of other parts of uterus; Z90.710 Acquired absence of both cervix and uterus; Z90.722 Acquired absence of ovaries, bilateral; Z92.3 Personal history of irradiation
CPT/HCPCS: 36591; 80053; 84443; 85025; 99214

== ENCOUNTER 2020-09-17 05:51 | Outpatient (RCR) | payer MEDICARE, OTHER, SELFPAY ==
[2020-09-17 14:58] LABS: Basophils # 0.1 10^3/uL (0.0-0.1); Basophils % 1.7 %; Eosinophils # 0.2 10^3/uL (0.0-0.8); Eosinophils % 4.5 %; Hematocrit 41.6 % (37.0-47.0); Hemoglobin 13.9 g/dL (11.5-15.3); Lymphocytes # 0.7 10^3/uL (0.8-4.8); Lymphocytes % 14.8 %; Mean Corpuscular HGB Conc 33.4 g/dL (30.0-36.0); Mean Corpuscular Hemoglobin 34.8 pg (28.0-34.0); Mean Platelet Volume 10.8 fL (7.4-10.4); Monocytes # 0.6 10^3/uL (0.2-0.9); Monocytes % 12.7 %; Neutrophils # 3.09 10^3/uL (1.8-7.7); Neutrophils % 66.3 %; Nucleated Red Blood Cells % 0 %; Platelet Count 95 10^3/cmm (130-400); Red Cell Distribution Width 13.3 % (12.1-15.1); White Blood Count 4.7 10^3/uL (4.0-10.0)
[2020-09-17 15:32] LABS: Alanine Aminotransferase 16 U/L (0-33); Albumin Level 3.7 g/dL (3.5-5.2); Alkaline Phosphatase 126 IU/L (35-105); Anion Gap 14.8 (5-19); Aspartate Amino Transferase 23 U/L (0-32); Blood Urea Nitrogen 12 mg/dL (8-23); Calcium 9.8 mg/dL (8.5-10.5); Carbon Dioxide 25 mmol/L (22-29); Chloride 103 mmol/L (98-107); Globulin 3.1 g/dL (1.3-4.6); Glomerular Filtration Rate 71.3 mL/min (90-130); Glucose 93 mg/dL (65-115); Osmolality Calculated 287 mOsm/kg (285-295); Potassium 3.8 mmol/L (3.5-5.1); Sodium 139 mmol/L (136-145); Total Bilirubin 0.7 mg/dL (0.15-1.2); Total Protein 6.8 g/dL (6.6-8.7)
--- NOTE | 2020-09-18 07:39 | ONC FU_ITS ---
Dr. Rascon Patient Follow-Up Note Patient: Bee Zheng Unit #: [id number]: 1950 Dicatated By: Tab Rascon M.D.Date of Visit:Sep 17, 2020 Onc Med Follow-up/Prog Note Chief Complaint: Bilateral breast cancer. History of Present Illness: This is a 70 year-old woman with bilateral invasive breast cancer, both locally advanced. The right breast was grade 1 infiltrating ductal carcinoma, post treatment stage IIA (ypT1c, ypN2a, M0), ER/OH positive and HER-2/bernadine negative. The left breast cancer was grade 3 infiltrating ductal carcinoma, post treatment stage at least IB (ypT2, ypN2a, M0), ER/OH positive and HER-2/bernadine positive. She had presented with gradually worsening swelling and firmness in her breasts after she had sustained a chest injury in a fall about 9 months ago. Bilateral mammograms on 03/23/2019 were BI-RADS 5, highly suggestive of malignancy. Findings included areas of dense asymmetry in the central right breast measuring 3.5 cm and in the central left breast measuring 4.5 by 3.9 cm. The right breast ultrasound showed an irregular hypoechoic mass at 12:00, middle depth, measuring 3.5 x 2.2 cm. Also noted was eccentric thickening of a lymph node in the right axilla. The left breast ultrasound showed a large amount of shadowing within the central breast mass containing calcifications at 12:00, measuring 4.6 x 3.7 cm. There were small benign-appearing lymph nodes on the left. She underwent bilateral ultrasound-guided biopsies on 04/06/2019. The left breast showed grade 3 infiltrating ductal carcinoma with a minor DCIS component. The breast prognostic profile showed ER positive at 87% and OH positive at 72%. There was overexpression of HER-2/bernadine, 3+ by IHC and amplification ratio by FISH of 2.3 with 7.0 HER-2 copies/cell. The Ki-67 was unfavorable at 22%. The right breast showed grade 2 infiltrating ductal carcinoma. A subsequent prognostic profile on the right breast biopsy showed ER positive at 87% and OH positive at 21%. That tumor was negative for overexpression of HER-2/bernadine, 1+ by IHC and amplification ratio by FISH of 1.0 with 2.4 HER-2 copies/cell. Staging PET/CT on 05/07/2019 showed FDG avid right breast lesion measuring 2.1 cm, SUV 13.7, and a solitary hypermetabolic right axillary lymph node with SUV 5.3, consistent with local metastatic disease. Other right axillary lymph nodes were too small to characterize by PET. The left breast showed 2 nearly contiguous lesions, the more dominant measuring 2.5 x 3.8 cm with SUV 8.3. The more inferior and lateral lesion measured 1.3 x 1.5 cm with SUV 11.7. Left axillary lymph nodes were too small to characterize by PET. There were no areas of uptake to suggest any other metastatic disease. A needle biopsy of the right axillary lymph node on 05/19/2019 showed metastatic carcinoma most consistent with breast primary. Given those findings and with HER-2/bernadine positive disease in the left breast, she was recommended to undergo neoadjuvant chemotherapy with TCH-P. On 06/02/2019 she began cycle 1 of neoadjuvant chemotherapy with TCH-P. She tolerated the treatment without acute toxicity. She subsequently developed pretty severe diarrhea, beginning around a 3 or 4. It lasted for 2 weeks. She continued with cycle 2 on 06/28/2019. That treatment was complicated by a pretty severe skin eruption, and she continued to have diarrhea. With cycle 3 on 07/26/2019 I did opt to omit the docetaxel. With had cycle there was no recurrence of skin eruption, but she continued to have severe diarrhea. With cycle 4, on 08/23/2019, I opted to admit the Perjeta and replace the taxane portion of her chemotherapy with Abraxane. On 08/29/2019 she was admitted to the hospital with severe pancytopenia. She continued to have diarrhea and she also developed significant liver dysfunction. She required transfusion of PRBC and platelets. She had uneventful recovery of her white blood cell count, but she continued to have severe thrombocytopenia at discharge, requiring additional outpatient platelet pheresis. I had seen her for a follow-up visit on 09/20/2019. Given the multiple toxicities she had experienced, I opted not to attempt any further chemotherapy. A restaging PET/CT on 09/24/2019 showed primary right breast carcinoma measuring 1.6 cm with SUV 4.6, significantly improved from the prior study. The solitary right axillary lymph node had resolved. The nearly contiguous left breast lesions were reported to have SUV of 3.1, also representing a significant response to therapy. At her follow-up visit on 10/25/2019 she still had very limited activity, and she also continued to have significant lower extremity edema. At that point her treatment remained on hold. Her medical history is otherwise significant in that she had presented in 2014 anemia, severe enough to require transfusion. This was ultimately determined to be due to endometrial cancer, for which she underwent hysterectomy/bilateral salpingo-oophorectomy. Those records are not available at this time. She indicates that there was no lymph node involvement. She apparently did receive postoperative radiation with HDR implant. There has been no evidence of recurrence of the endometrial cancer. Her other medical illnesses include hypertension and hypothyroidism. She has a history of smoking 1-2 packs of cigarettes daily for 50 years. She quit smoking in 2014. She has alcohol use of at least a 6-pack of beer daily. INTERIM HISTORY: At her follow-up visit on 11/01/2019 she had recovered sufficiently to resume treatment with single agent Herceptin at a 3-week dosing schedule. She tolerated it without significant toxicity. On 11/17/2019 she underwent bilateral modified radical mastectomies. Pathology on the left breast showed grade 2 invasive ductal carcinoma, multifocal, with the largest focus measuring 2.8 cm in maximum diameter. There was invasion into the dermis, but without skin ulceration. There was a small component of nuclear grade 1 ductal carcinoma in situ. The margins were negative. There was involvement in 6 of 8 axillary lymph nodes with the largest metastatic deposit measuring 6 mm. Pathologic staging was ypT2, ypN2a. The right breast showed grade 1 invasive ductal carcinoma measuring 1.3 cm in maximum diameter. There was an extensive component of nuclear grade 2 intraductal cancer, estimated at 13 mm. The margins were uninvolved. There was involvement in 8 of 8 axillary lymph nodes with the largest metastatic deposit measuring 5 mm. Pathologic staging was ypT1c, ypN2a. She had no complications with the surgery. She was able to continue single agent Herceptin at the 3- week dosing schedue. As of 12/13/2019 she had received her 3rd cycle. During that time she did show gradual improvement in her neuropathy and performance status. As of her visit on 01/03/2020 I opted to change her systemic therapy to Kadcyla at 3.6 mg/kg by IV infusion. At that time, she also began adjuvant hormonal therapy with anastrozole 1 mg daily. She tolerated the initial infusion of Kadcyla with no adverse effects. She continued with cycle 2 on 01/24/2020, and she began chest wall radiation on 01/25/2020. Her 3rd cycle of Kadcyla was delayed due to neutropenia. She went on to complete radiation on 03/06/2020, 5040 cGy to each chest wall. She had then presented with increased shortness of breath. Her CT pulmonary angiogram on 04/09/2020 showed no evidence for pulmonary embolus. She was small right pleural and pericardial effusions, which were new. The most significant finding was fibrotic appearing airspace infiltrates in the mid and upper lungs anteriorly, also new. The findings were felt to be most consistent with radiation pneumonitis. She began on steroid therapy. As of her follow-up visit on 05/01/2020, she was showing clinical improvement, and her prednisone dosage was decreased to 10 mg daily. Her restaging CT scans on 05/31/2020 showed moderate chronic emphysematous changes, with no acute pulmonary infiltrates. 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 There was also mild but stable dilatation of the main pulmonary arteries. There was no evidence of metastatic disease in the chest, abdomen, or pelvis. With those findings, she continued adjuvant hormonal therapy with anastrozole. I did not attempt to restart Kadcyla or Herceptin. During follow-up her prednisone dosage was gradually tapered. At her scheduled visit on 08/13/2020 she reported new onset of rectal bleeding. She was referred to Dr. Pompa to have that evaluated. She is seen for a follow-up visit. She has been feeling pretty good. She has now tapered off prednisone. She continues, though, to have limited activity. Her ECOG score is 1. She has good appetite. She has no fever, night sweats, or hot flashes. She still has some shortness of breath, but her breathing is better than it was. She has occasional nonproductive cough. She does not complain of chest pain. She continues to have some diarrhea. She is still having some red blood in the stool, though not as much. She is scheduled to have a colonoscopy on 27 September. She has no complaints. She has no significant joint or bone pain. She has had some headaches. She continues to have neuropathy in her legs/feet and to a lesser extent in her hands. She says her legs feel like weight. Medications: Aleve 1 Tablet (of 220 mg) Tablet Oral PRN, Anastrozole 1 Tablet (of 1 mg) Oral daily, Calcium + D3 1 Tablet Oral daily, Imodium A-D 2 Tablet (of 2 mg) Oral b.i.d. PRN, Lasix 1 Tablet (of 40 mg) Oral daily PRN, Levothyroxine Sodium 1 (112 mcg) Tablet Oral daily, Potassium Chloride ER 1 Tablet (of 10 meq) Tablet, controlled release Oral daily, Prochlorperazine Maleate 1 Tablet (of 10 mg) Oral q 4 hours PRN Allergies: Levaquin Review of Systems: Constitutional - Her energy is pretty good but she still has limited activity. Appetite is good and weight is stable. No fever, night sweats, or hot flashes. ECOG score is 1, ENMT - She has sinus drainage. No mouth sores. No sore throat or difficulty swallowing, Hematologic/Lymphatic - No abnormal bruising or bleeding, Respiratory - She has shortness of breath, but her breathing is better than it was. She has nonproductive cough. No pleuritic pain or hemoptysis, Cardiovascular - No angina pain. No palpitations, Gastrointestinal - No nausea or vomiting. She has acid reflux. She has occasional diarrhea, and she is still having some red blood in the stool, though not as much, Genitourinary (F) - No dysuria or hematuria. No urinary frequency. No urgency or incontinence, Musculoskeletal - No joint or bone pain, Integumentary - No skin rash, Neurologic - She has had some headaches. No dizziness. She has neuropathy in her legs/feet and to lesser extent in her hands. She has her legs still feel like weight, Psychiatric - No anxiety or depression. She has difficulty sleeping. Vital Signs: Performed on Sep 17, 2020 15:55 Height - 66.00 in Weight - 183.4 lbs (LOW) BSA - 1.93 sq.m BMI - 29.60 Temperature - 97.6 F (LOW) Pulse - 106 /min (HIGH) Respiration - 16 /min BP - 105/72 mm(hg) O2 Sat - 93 % (LOW) Pain - 0 Physical Examination: Constitutional - She looks pretty good generally, Eyes - Sclerae nonicteric. Conjunctivae clear, ENMT - No lesions noted in the oral cavity, Hematologic/Lymphatic - No cervical or clavicular adenopathy, Respiratory - Lungs sound clear, Cardiovascular - Heart rhythm is irregular. There is no murmur, gallop, or rub noted, Breasts - There is mild soft tissue swelling in the chest wall bilaterally. There are no chest wall lesions noted. There is no axillary adenopathy, Abdomen - Soft. Liver and spleen are not enlarged. There is no abdominal mass or ascites noted and there is no inguinal adenopathy, Extremities - No edema, Integumentary - No skin eruption, Neurologic - There is weakness and both legs. She does not appear to have any focal neurologic deficit. Lab/Imaging: Test performed on Sep 17, 2020 14:37 Sodium 139 mmol/L Potassium 3.8 mmol/L Chloride 103 mmol/L CO2 25 mmol/L Anion Gap 14.8 BUN 12 mg/dL Creatinine 0.8 mg/dL Cr Clearance (Est) 85.9800 mL/min eGFR 71.3 mL/min Glucose 93 mg/dL Osmolality - Calculated 287 mOsm/kg Calcium 9.8 mg/dL Protein, Total 6.8 g/dL Albumin 3.7 g/dL Globulin 3.1 g/dL Bilirubin, Total 0.7 mg/dL ALT (SGPT) 16 U/L AST (SGOT) 23 U/L Alkaline Phosphatase 126 IU/L WBC 4.7 10 3/uL RBC 4.00 10 6/uL HGB 13.9 g/dL HCT 41.6 % MCV 104.0 fL MCH 34.8 pg MCHC 33.4 g/dL RDW 13.3 % Platelet Count 95 10 3/cmm MPV 10.8 fL Neutrophils 3.09 10 3/uL Lymphocytes 0.7 10 3/uL Monocytes 0.6 10 3/uL Eosinophils 0.2 10 3/uL Basophils 0.1 10 3/uL Neutrophil % 66.3 % Lymphocyte % 14.8 % Monocyte % 12.7 % Eosinophil % 4.5 % Basophils % 1.7 % NRBC % 0 % Impression: 1. Patient with bilateral invasive breast cancer, both locally advanced. The right breast cancer was grade 1 infiltrating ductal carcinoma, post treatment stage IIA (ypT1c, ypN2a, M0), ER/OH positive and HER-2/bernadine negative. The left breast cancer was grade 3 infiltrating ductal carcinoma, post treatment stage at least IB (ypT2, ypN2a, M0), ER/OH positive and HER-2/bernadine positive. 2. She underwent bilateral ultrasound directed breast biopsies on 04/06/2019, and she underwent ultrasound directed needle biopsy of a right axillary lymph node on 05/19/2019. 3. She was given neoadjuvant chemotherapy with TCH-P, cycle 1 beginning on 06/02/2019. She experienced multiple toxicities including diarrhea and neuropathy, severe enough to require modifications in her treatment. The chemotherapy was stopped after 4 cycles due to toxicity. 4. As of 11/01/2019 she resumed treatment with single agent Herceptin at a 3-week dosing interval. 5. On 11/17/2019 she underwent bilateral modified radical mastectomies. Her other medical illnesses include: 6. Hypertension. 7. Hypothyroidism. 8. She has a history of endometrial cancer for which she underwent hysterectomy/bilateral salpingo-oophorectomy and postoperative HDR implant radiation in 2014. On 11/22/2019 she continued with cycle 2 of single agent Herceptin. She tolerated it well. She has had very gradual recovery from the chemotherapy-related toxicities. She continues to show improvement in her leg weakness and performance status. As of 01/03/2020 her systemic adjuvant therapy was changed from single agent Herceptin to Kadcyla at 3.6 mg/kg by IV infusion every 3 weeks. At that time she also started adjuvant hormonal therapy with anastrozole 1 mg daily. She completed 2 cycles of Kadcyla with no adverse effects. She was then seen by the radiation oncologist and she began prophylactic chest wall radiation. Her 3rd cycle of Kadcyla was delayed due to neutropenia. She went on to complete radiation on 03/06/2020, total dose 5040 cGy to each chest wall. She had then presented with increased shortness of breath, and her CT pulmonary angiogram on 04/09/2020 showed new fibrotic changes in both lungs, felt to be consistent with radiation pneumonitis. She has now completed a course of steroid therapy. During this time she has continued adjuvant hormonal therapy with anastrozole, but her Kadcyla has remained on hold. She had some improvement in her performance status with the steroid therapy, though recently she has been a little more short of breath again. There was an increase in her liver enzymes, but that improved following a decrease in the prednisone dosage to 10 mg daily. During follow-up she continued her adjuvant hormonal therapy with anastrozole, and she was tapered off prednisone. At her scheduled visit on 08/13/2020 she reported new onset of rectal bleeding, and she is scheduled to have colonoscopy with Dr. Pompa next week. 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 There has been no evidence of recurrence/progression of the breast cancer. Plan: She will continue adjuvant hormonal therapy with anastrozole 1 mg daily. She will be undergoing colonoscopy next week for evaluation of the rectal bleeding. I will see her again in 1 month. Signed By: Tab Rascon M.D. <<Signature on File>>
== END 2020-09-24 23:59 | disposition home or self-care (01) ==
LOC: ONCMED 05:51
PROVIDERS: PCP Nurse Practitioner Family; Visit Provider Internal Medicine Medical Oncology
DX: C50.811 Malignant neoplasm of overlapping sites of right female breast (principal); C50.812 Malignant neoplasm of overlapping sites of left female breast; Z17.0 Estrogen receptor positive status [ER+]; D70.1 Agranulocytosis secondary to cancer chemotherapy; T45.1X5A Adverse effect of antineoplastic and immunosuppressive drugs, initial encounter; D69.59 Other secondary thrombocytopenia; I10 Essential (primary) hypertension; E03.9 Hypothyroidism, unspecified; Z85.42 Personal history of malignant neoplasm of other parts of uterus; Z90.710 Acquired absence of both cervix and uterus; Z79.818 Long term (current) use of other agents affecting estrogen receptors and estrogen levels
CPT/HCPCS: 36591; 80053; 85025; 99214

== ENCOUNTER → 2020-09-22 08:13 | Outpatient (BNVA) | payer MEDICARE, OTHER, SELFPAY | PROVIDERS: PCP Nurse Practitioner Family; Visit Provider Surgery | DX: Z20.828 Contact with and (suspected) exposure to other viral communicable diseases (principal); Z01.812 Encounter for preprocedural laboratory examination | CPT/HCPCS: 87635 ==

== ENCOUNTER 2020-09-27 06:01 | Day surgery (SDC) | payer MEDICARE, OTHER, SELFPAY ==
[2020-09-25 12:21] VITALS: BMI 29.8
[2020-09-27 06:20] VITALS: BP 102/69; PULSE 104; RESP 18; TEMP 36.1; O2SAT 93
--- NOTE | 2020-09-27 06:41 | W.PM.OPSUD ---
Surgery/Procedure H&P Update DATE OF PROCEDURE: September 27, 2020 DATE H&P PERFORMED: 09/11/20 H&P UPDATE INFORMATION: No changes to prior documentation PREOP DIAGNOSIS: Bilateral Breast CA PLANNED PROCEDURE: Operation Date: 09/27/20 07:00 Proposed Procedures p Colonoscopy 26147 K92.1 R19.7(Not Applicable) - Vern Pompa MD
--- NOTE | 2020-09-27 06:48 | P.ANESASSM_ITS ---
Pre-Anesthetic Assessment Pre-Anesthetic Assessment: Height/Weight: Height 1.68 m Weight 83.915 kg Temp Pulse Resp BP Pulse Ox 97 F L 104 H 18 102/69 93 09/27/20 06:20 09/27/20 06:20 09/27/20 06:20 09/27/20 06:20 09/27/20 06:20 Preop Diagnosis: Bilateral Breast CA Proposed Procedure: Operation Date: 09/27/20 07:00 Proposed Procedures p Colonoscopy 07363 K92.1 R19.7(Not Applicable) - Vern Pompa MD Familial anesthetic complications: denies Was Beta Denis taken within 24 hours: N/A Last intake: Intake Last Liquid Date 09/26/20 Last Liquid Time 20:00 Last Solid Date 09/25/20 Last Solid Time 20:00 Last Intake: 00:00 Social: Social History: No alcohol and No tobacco (quit 6 years ago ) Exam: Pre-Anes Outpt Exam: alert, oriented x 3 and clear to auscultation bilaterally Airway: Submandibular: WNL Cervical ROM: WNL MP: 3 Dentition: Other (upper denture ) Pulmonary: Pulmonary: None reported (sinus drainage ) CV/HEM: CV/HEM: None reported : : UTI (bladder infection 1 year ago ) Hepatic: Hepatic: None reported GI: GI: None reported Metabolic: Metabolic: Thyroid (hypo) Musc/skel: Comments: neuropathy in hands in feet Neuropsych: Neuropsych: None reported Anesthetic Plan: ASA status: 2 Anesthesia: Anesthesia Evaluation and MAC PFSH Anesthesia PFSH: Surgical History (Updated 11/18/19 @ 08:58 by Vern Pompa MD) Status post bilateral mastectomy Family History (Updated 11/16/19 @ 13:43 by [facility]) Other Cancer Social History (Updated 11/16/19 @ 13:43 by [employer] [employer]) Smoking and tobacco status: former smoker Alcohol intake: current Data Anesthesia Cardiac Studies: No Data to Display
[2020-09-27] MEDS: sodium chloride 0.9% 1,000 ML 30 ML IV (06:51)
--- NOTE | 2020-09-27 06:53 | P.ANESASSM_ITS ---
Pre-Anesthetic Assessment Pre-Anesthetic Assessment: Height/Weight: Height 1.68 m Weight 83.915 kg Temp Pulse Resp BP Pulse Ox 97 F L 104 H 18 102/69 93 09/27/20 06:20 09/27/20 06:20 09/27/20 06:20 09/27/20 06:20 09/27/20 06:20 Preop Diagnosis: Bilateral Breast CA Proposed Procedure: Operation Date: 09/27/20 07:00 Proposed Procedures p Colonoscopy 39723 K92.1 R19.7(Not Applicable) - Vern Pompa MD Familial anesthetic complications: PONV Was Beta Denis taken within 24 hours: N/A Last intake: Intake Last Liquid Date 09/26/20 Last Liquid Time 20:00 Last Solid Date 09/25/20 Last Solid Time 20:00 Social: Social History: No alcohol and No tobacco Comment: former smoker Exam: Pre-Anes Outpt Exam: alert, oriented x 3, clear to auscultation bilaterally and regular rate & rhythm Airway: Cervical ROM: WNL MP: 3 Dentition: Full GI: GI: GERD Metabolic: Metabolic: Thyroid Musc/skel: Musc/skel: Fibromyalgia Anesthetic Plan: ASA status: 2 Anesthesia: MAC Risk of > 500 ml blood loss (7ml/kg in children): No Meds/Allergies Current Medications: Current Medications Generic Name Dose Route Start Last Admin Trade Name Freq PRN Reason Stop Dose Admin Sodium Chloride 1,000 mls @ 30 ml s/hr 09/27/20 06:15 09/27/20 06:51 Sodium Chloride 0.9% IV 09/28/20 06:14 30 mls/hr .Q24H RADHA Administration PFSH Anesthesia PFSH: Surgical History (Updated 11/18/19 @ 08:58 by Vern Pompa MD) Status post bilateral mastectomy Family History (Updated 11/16/19 @ 13:43 by [employer]) Other Cancer Social History (Updated 11/16/19 @ 13:43 by [employer]) Smoking and tobacco status: former smoker Alcohol intake: current Data Anesthesia Cardiac Studies: No Data to Display
[2020-09-27 07:23] VITALS: BP 92/49; PULSE 95; RESP 16; TEMP 36.3; O2SAT 91
--- NOTE | 2020-09-27 07:29 | ANE.PACU2 ---
Inpatient post-anesthesia follow up: Airway intact: Yes Vital signs: Temperature 97.4 F Pulse Rate 95 Respiratory Rate 16 Blood Pressure 92/49 Pulse Oximetry 91 Oxygen Delivery Me thod Nasal Cannula Oxygen Flow Rate 2 Fraction of Inspir ed Oxygen Hydration adequate: Yes Nausea and vomiting: No Pain level: 1 Mental status: Baseline
[2020-09-27 07:38] VITALS: BP 95/60; PULSE 88; RESP 16; TEMP 36.2; O2SAT 94
== END 2020-09-27 08:00 | disposition home or self-care (01) ==
PROVIDERS: PCP Nurse Practitioner Family; Visit Provider Surgery
PROC: 0DJD8ZZ Inspection of Lower Intestinal Tract, Via Natural or Artificial Opening Endoscopic (ICD-10-PCS; CPT 45378; principal; 2020-09-27 07:00)
DX: K52.9 Noninfective gastroenteritis and colitis, unspecified (principal); K57.30 Diverticulosis of large intestine without perforation or abscess without bleeding; K21.9 Gastro-esophageal reflux disease without esophagitis; M79.7 Fibromyalgia; Z87.891 Personal history of nicotine dependence; I10 Essential (primary) hypertension; Z85.3 Personal history of malignant neoplasm of breast
CPT/HCPCS: 12345; 45380; 88305; J2704; J7030; T1015-U1

== ENCOUNTER 2020-10-16 06:11 | Outpatient (RCR) | payer MEDICARE, OTHER, SELFPAY ==
[2020-10-16 10:28] LABS: Basophils # 0.1 10^3/uL (0.0-0.1); Basophils % 1.5 %; Eosinophils % 16.7 %; Hematocrit 41.8 % (37.0-47.0); Hemoglobin 13.8 g/dL (11.5-15.3); Lymphocytes # 0.6 10^3/uL (0.8-4.8); Lymphocytes % 9.6 %; Mean Corpuscular Hemoglobin 34.5 pg (28.0-34.0); Mean Corpuscular Volume 104.5 fL (81-99); Mean Platelet Volume 10.7 fL (7.4-10.4); Monocytes # 0.6 10^3/uL (0.2-0.9); Monocytes % 9.2 %; Neutrophils % 62.7 %; Nucleated Red Blood Cells % 0 %; Platelet Count 116 10^3/cmm (130-400); Red Cell Distribution Width 13.9 % (12.1-15.1); White Blood Count 6.1 10^3/uL (4.0-10.0)
[2020-10-16 10:46] LABS: Alanine Aminotransferase 7 U/L (0-33); Albumin Level 2.9 g/dL (3.5-5.2); Alkaline Phosphatase 99 IU/L (35-105); Anion Gap 14.1 (5-19); Aspartate Amino Transferase 15 U/L (0-32); Blood Urea Nitrogen 11 mg/dL (8-23); Calcium 8.7 mg/dL (8.5-10.5); Carbon Dioxide 27 mmol/L (22-29); Chloride 96 mmol/L (98-107); Globulin 3.7 g/dL (1.3-4.6); Glomerular Filtration Rate 49.4 mL/min (90-130); Glucose 93 mg/dL (65-115); Osmolality Calculated 277 mOsm/kg (285-295); Potassium 3.1 mmol/L (3.5-5.1); Sodium 134 mmol/L (136-145); Total Protein 6.6 g/dL (6.6-8.7)
[2020-10-16] MEDS: famotidine 20 mg/2 mL INJ IVP (12:57)
[2020-10-16] MEDS: ondansetron 2 mg/ML SDV 2 mL 8 MG IV (12:58)
[2020-10-16] MEDS: metroNIDAZOLE IV 500 MG/100 ML PREMIX 100 MG IV (13:15)
[2020-10-16] MEDS: sodium chloride 0.9% 1,000 ML 999 ML IV (14:00)
--- NOTE | 2020-10-21 20:38 | ONC FU_ITS ---
[facility] Patient Note Patient: Bee Zheng Unit #: [id number]: 1950 Dictated By: Christopher KatzDate of Visit: Oct 16, 2020 Onc MED Follow-Up/Prog Note Chief Complaint: Bilateral breast cancer. History of Present Illness: Ms Zheng is a 70 year-old woman with bilateral invasive breast cancer, both locally advanced. The right breast was grade 1 infiltrating ductal carcinoma, post treatment stage IIA (ypT1c, ypN2a, M0), ER/SD positive and HER-2/bernadine negative. The left breast cancer was grade 3 infiltrating ductal carcinoma, post treatment stage at least IB (ypT2, ypN2a, M0), ER/SD positive and HER-2/bernadine positive. She had presented with gradually worsening swelling and firmness in her breasts after she had sustained a chest injury in a fall about 9 months ago. Bilateral mammograms on 03/23/2019 were BI-RADS 5, highly suggestive of malignancy. Findings included areas of dense asymmetry in the central right breast measuring 3.5 cm and in the central left breast measuring 4.5 by 3.9 cm. The right breast ultrasound showed an irregular hypoechoic mass at 12:00, middle depth, measuring 3.5 x 2.2 cm. Also noted was eccentric thickening of a lymph node in the right axilla. The left breast ultrasound showed a large amount of shadowing within the central breast mass containing calcifications at 12:00, measuring 4.6 x 3.7 cm. There were small benign-appearing lymph nodes on the left. She underwent bilateral ultrasound-guided biopsies on 04/06/2019. The left breast showed grade 3 infiltrating ductal carcinoma with a minor DCIS component. The breast prognostic profile showed ER positive at 87% and SD positive at 72%. There was overexpression of HER-2/bernadine, 3+ by IHC and amplification ratio by FISH of 2.3 with 7.0 HER-2 copies/cell. The Ki-67 was unfavorable at 22%. The right breast showed grade 2 infiltrating ductal carcinoma. A subsequent prognostic profile on the right breast biopsy showed ER positive at 87% and SD positive at 21%. That tumor was negative for overexpression of HER-2/bernadine, 1+ by IHC and amplification ratio by FISH of 1.0 with 2.4 HER-2 copies/cell. Staging PET/CT on 05/07/2019 showed FDG avid right breast lesion measuring 2.1 cm, SUV 13.7, and a solitary hypermetabolic right axillary lymph node with SUV 5.3, consistent with local metastatic disease. Other right axillary lymph nodes were too small to characterize by PET. The left breast showed 2 nearly contiguous lesions, the more dominant measuring 2.5 x 3.8 cm with SUV 8.3. The more inferior and lateral lesion measured 1.3 x 1.5 cm with SUV 11.7. Left axillary lymph nodes were too small to characterize by PET. There were no areas of uptake to suggest any other metastatic disease. A needle biopsy of the right axillary lymph node on 05/19/2019 showed metastatic carcinoma most consistent with breast primary. Given those findings and with HER-2/bernadine positive disease in the left breast, she was recommended to undergo neoadjuvant chemotherapy with TCH-P. On 06/02/2019 she began cycle 1 of neoadjuvant chemotherapy with TCH-P. She tolerated the treatment without acute toxicity. She subsequently developed pretty severe diarrhea, beginning around a 3 or 4. It lasted for 2 weeks. She continued with cycle 2 on 06/28/2019. That treatment was complicated by a pretty severe skin eruption, and she continued to have diarrhea. With cycle 3 on 07/26/2019 I did opt to omit the docetaxel. With had cycle there was no recurrence of skin eruption, but she continued to have severe diarrhea. With cycle 4, on 08/23/2019, I opted to admit the Perjeta and replace the taxane portion of her chemotherapy with Abraxane. On 08/29/2019 she was admitted to the hospital with severe pancytopenia. She continued to have diarrhea and she also developed significant liver dysfunction. She required transfusion of PRBC and platelets. She had uneventful recovery of her white blood cell count, but she continued to have severe thrombocytopenia at discharge, requiring additional outpatient platelet pheresis. Dr Rascon had seen her for a follow-up visit on 09/20/2019. Given the multiple toxicities she had experienced, it was opted not to attempt any further chemotherapy. A restaging PET/CT on 09/24/2019 showed primary right breast carcinoma measuring 1.6 cm with SUV 4.6, significantly improved from the prior study. The solitary right axillary lymph node had resolved. The nearly contiguous left breast lesions were reported to have SUV of 3.1, also representing a significant response to therapy. At her follow-up visit on 10/25/2019 she still had very limited activity, and she also continued to have significant lower extremity edema. At that point her treatment remained on hold. Her medical history is otherwise significant in that she had presented in 2014 anemia, severe enough to require transfusion. This was ultimately determined to be due to endometrial cancer, for which she underwent hysterectomy/bilateral salpingo-oophorectomy. Those records are not available at this time. She indicates that there was no lymph node involvement. She apparently did receive postoperative radiation with HDR implant. There has been no evidence of recurrence of the endometrial cancer. Her other medical illnesses include hypertension and hypothyroidism. She has a history of smoking 1-2 packs of cigarettes daily for 50 years. She quit smoking in 2014. She has alcohol use of at least a 6-pack of beer daily. INTERIM HISTORY: At her follow-up visit on 11/01/2019 she had recovered sufficiently to resume treatment with single agent Herceptin at a 3-week dosing schedule. She tolerated it without significant toxicity. On 11/17/2019 she underwent bilateral modified radical mastectomies. Pathology on the left breast showed grade 2 invasive ductal carcinoma, multifocal, with the largest focus measuring 2.8 cm in maximum diameter. There was invasion into the dermis, but without skin ulceration. There was a small component of nuclear grade 1 ductal carcinoma in situ. The margins were negative. There was involvement in 6 of 8 axillary lymph nodes with the largest metastatic deposit measuring 6 mm. Pathologic staging was ypT2, ypN2a. The right breast showed grade 1 invasive ductal carcinoma measuring 1.3 cm in maximum diameter. There was an extensive component of nuclear grade 2 intraductal cancer, estimated at 13 mm. The margins were uninvolved. There was involvement in 8 of 8 axillary lymph nodes with the largest metastatic deposit measuring 5 mm. Pathologic staging was ypT1c, ypN2a. She had no complications with the surgery. She was able to continue single agent Herceptin at the 3- week dosing schedue. As of 12/13/2019 she had received her 3rd cycle. During that time she did show gradual improvement in her neuropathy and performance status. As of her visit on 01/03/2020 I opted to change her systemic therapy to Kadcyla at 3.6 mg/kg by IV infusion. At that time, she also began adjuvant hormonal therapy with anastrozole 1 mg daily. She tolerated the initial infusion of Kadcyla with no adverse effects. She continued with cycle 2 on 01/24/2020, and she began chest wall radiation on 01/25/2020. Her 3rd cycle of Kadcyla was delayed due to neutropenia. She went on to complete radiation on 03/06/2020, 5040 cGy to each chest wall. She had then presented with increased shortness of breath. Her CT pulmonary angiogram on 04/09/2020 showed no evidence for pulmonary embolus. She was small right pleural and pericardial effusions, which were new. The most significant finding was fibrotic appearing airspace infiltrates in the mid and upper lungs anteriorly, also new. The findings were felt to be most consistent with radiation pneumonitis. She began on steroid therapy. As of her follow-up visit on 05/01/2020, she was showing clinical improvement, and her prednisone dosage was decreased to 10 mg daily. Her restaging CT scans on 05/31/2020 showed moderate chronic emphysematous changes, with no acute pulmonary infiltrates. 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 There was also mild but stable dilatation of the main pulmonary arteries. There was no evidence of metastatic disease in the chest, abdomen, or pelvis. With those findings, she continued adjuvant hormonal therapy with anastrozole. I did not attempt to restart Kadcyla or Herceptin. During follow-up her prednisone dosage was gradually tapered. At her scheduled visit on 08/13/2020 she reported new onset of rectal bleeding. She was referred to Dr. Pompa to have that evaluated. Ms Zheng is here today for followup. She has had persistent diarrhea since her last visit. She did have colonoscopy with Dr. Pompa on 09/27/2020. The endoscopic diagnosis were diverticulosis without perforation or abscess without bleeding and colitis. 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 She had also had [facility] diagnostic testing. Her results have returned and she has negative results. This was a multicancer profile. This means that she is negative for BRCA 1 and 2 with no other abnormal genes identified. She denies any new pain or fever. She states that she just cannot stop the diarrhea. She has had persistent nausea as well but thinks that is related to the diarrhea. She states she has been taking 2 Imodium tian-ish-dnosifx which slows it down a little but it just comes right back . She denies any fever or chills. She denies any new pain. She denies lower extremity edema because she takes Lasix once a week . Her ECOG is 2. Past Medical History: Anemia Diverticulosis History of uterine cancer Hypertension Hypothyroidism Past Surgical History: Hernia repair Tubal ligation Mastectomy in 2019 - double mastectomy Hysterectomy/bilateral salpingo-oophorectomy in 2014 Allergies: Levaquin Medications: Anastrozole 1 Tablet (of 1 mg) Oral daily Calcium + D3 1 Tablet Oral daily Imodium A-D 2 Tablet (of 2 mg) Oral b.i.d. PRN Lasix 1 Tablet (of 40 mg) Oral daily PRN Levothyroxine Sodium 1 (112 mcg) Tablet Oral daily Potassium Chloride ER 1 Tablet (of 10 meq) Tablet, controlled release Oral daily Prochlorperazine Maleate 1 Tablet (of 10 mg) Oral q 4 hours PRN Family History: Ms. Zheng's mother at age 84: cancer of unknown primary. Ms. Zheng's father at age 80: congestive heart failure. Ms. Zheng has 3 brothers: 3 . She has 4 sisters: 2 alive, 2 . Ms. Zheng's first sister's breast cancer. Father during surgery for cerebral aneurysm. Mother had lung cancer and breast cancer, and a sister has been treated for breast cancer. A sister of stroke associated with cerebral aneurysm. She had 3 brothers, all of whom also are . 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 Ms. Zheng quit smoking 5 years ago but had smoked 1.5 packs/day for 50 years. She is an active drinker.She consumes 6 drinks/day 7 days/week. She has a history of smoking 1-2 packs of cigarettes daily for 50 years. She quit smoking in 2014. She has daily alcohol use of at least a 6-pack of beer daily. Review Of Symptoms: Constitutional Denies fevers, chills, night sweats. Some fatigue but better overall. Allergic/Immunologic No reactions. Eyes Denies significant visual changes. No diplopia. No amaurosis. ENMT Denies changes in hearing, sore throat, difficulty or changes in swallowing ability, and/or sinus drainage. Hematologic/Lymphatic Denies easy bruising or bleeding. The patient denies any tender or palpable lymph nodes. Breasts No current concerns. Respiratory She is having dyspnea on exertion- about the same , but denies chest pain, cough or hemoptysis. Denies orthopnea. Cardiovascular Denies anginal chest pain, palpitations or orthopnea. Gastrointestinal Persistent diarrhea and nausea since colonoscopy on 09/27/2020. Her weight is down 6 pounds since her last visit at the end of August 2020. Genitourinary (F) No hematuria, hesitancy, incontinence, vaginal bleeding, discharge or other problems with urination. Musculoskeletal Denies joint pain, swelling or redness. No decreased range of motion. Integumentary Denies rashes, inflammation, ulcerations or skin changes. Neurologic Denies headache, blurred vision, and no areas of focal weakness or numbness. Normal-assisted gait. No increase in neuropathy symptoms. Psychiatric Denies insomnia, depression, kat or mood swings. Vital Signs: Performed on Oct 16, 2020 12:04 Height - 66.00 in Weight - 177.8 lbs (LOW) BSA - 1.90 sq.m BMI - 28.70 Temperature - 97.8 F (LOW) Pulse - 80 /min Respiration - 18 /min BP - 107/65 mm(hg) O2 Sat - 95 % (LOW) Pain - 0,1 - No physically strenuous activity, but ambulatory and able to carry out light or sedentary work (e.g. office work, light house work). (ECOG) Physical Examination: Constitutional Alert, oriented, no acute distress. Skin pink, warm and dry. Head Normocephalic; atraumatic. Eyes Conjunctivae and sclerae are clear and without icterus. Pupils are reactive and equal. ENMT No oral exudates, ulcers, masses, thrush or mucositis. Oropharynx clear. Tongue normal. Neck Supple without masses or thyromegaly. No jugular venous distension. Hematologic/Lymphatic No petechiae or purpura. No tender or palpable lymph nodes in the cervical or supraclavicular areas. Respiratory Lungs are clear to auscultation without rhonchi or wheezing. Cardiovascular Regular rate and rhythm of heart without murmurs,clicks, gallops or rubs. Abdomen Non-tender, non-distended, no masses, ascites. Back/Spine Non-tender to palpation. Extremities No visible deformities, no cyanosis, clubbing or edema. Musculoskeletal No tenderness or swelling, normal range of motion without obvious weakness. Integumentary No rashes or lesions. Neurologic No sensory or motor deficits, normal cerebellar function, normal slow gait today. Psychiatric Alert and oriented times three. Coherent speech. Verbalizes understanding of our discussions today. Laboratory:Test performed on Oct 16, 2020 10:10 Sodium 134 mmol/L Potassium 3.1 mmol/L Chloride 96 mmol/L CO2 27 mmol/L Anion Gap 14.1 BUN 11 mg/dL Creatinine 1.1 mg/dL Cr Clearance (Est) 62.5300 mL/min eGFR 49.4 mL/min Glucose 93 mg/dL Osmolality - Calculated 277 mOsm/kg Calcium 8.7 mg/dL Protein, Total 6.6 g/dL Albumin 2.9 g/dL Globulin 3.7 g/dL Bilirubin, Total 1.0 mg/dL ALT (SGPT) 7 U/L AST (SGOT) 15 U/L Alkaline Phosphatase 99 IU/L WBC 6.1 10 3/uL RBC 4.00 10 6/uL HGB 13.8 g/dL HCT 41.8 % MCV 104.5 fL MCH 34.5 pg MCHC 33.0 g/dL RDW 13.9 % Platelet Count 116 10 3/cmm MPV 10.7 fL Neutrophils 3.80 10 3/uL Lymphocytes 0.6 10 3/uL Monocytes 0.6 10 3/uL Eosinophils 1.0 10 3/uL Basophils 0.1 10 3/uL Neutrophil % 62.7 % Lymphocyte % 9.6 % Monocyte % 9.2 % Eosinophil % 16.7 % Basophils % 1.5 % NRBC % 0 % Impression: 1. Patient with bilateral invasive breast cancer, both locally advanced. The right breast cancer was grade 1 infiltrating ductal carcinoma, post treatment stage IIA (ypT1c, ypN2a, M0), ER/SD positive and HER-2/bernadine negative. The left breast cancer was grade 3 infiltrating ductal carcinoma, post treatment stage at least IB (ypT2, ypN2a, M0), ER/SD positive and HER-2/bernadine positive. 2. She underwent bilateral ultrasound directed breast biopsies on 04/06/2019, and she underwent ultrasound directed needle biopsy of a right axillary lymph node on 05/19/2019. 3. She was given neoadjuvant chemotherapy with TCH-P, cycle 1 beginning on 06/02/2019. She experienced multiple toxicities including diarrhea and neuropathy, severe enough to require modifications in her treatment. The chemotherapy was stopped after 4 cycles due to toxicity. 4. As of 11/01/2019 she resumed treatment with single agent Herceptin at a 3-week dosing interval. 5. On 11/17/2019 she underwent bilateral modified radical mastectomies. Her other medical illnesses include: 6. Hypertension. 7. Hypothyroidism. 8. She has a history of endometrial cancer for which she underwent hysterectomy/bilateral salpingo-oophorectomy and postoperative HDR implant radiation in 2014. On 11/22/2019 she continued with cycle 2 of single agent Herceptin. She tolerated it well. She has had very gradual recovery from the chemotherapy-related toxicities. She continues to show improvement in her leg weakness and performance status. As of 01/03/2020 her systemic adjuvant therapy was changed from single agent Herceptin to Kadcyla at 3.6 mg/kg by IV infusion every 3 weeks. At that time she also started adjuvant hormonal therapy with anastrozole 1 mg daily. She completed 2 cycles of Kadcyla with no adverse effects. She was then seen by the radiation oncologist and she began prophylactic chest wall radiation. Her 3rd cycle of Kadcyla was delayed due to neutropenia. She went on to complete radiation on 03/06/2020, total dose 5040 cGy to each chest wall. She had then presented with increased shortness of breath, and her CT pulmonary angiogram on 04/09/2020 showed new fibrotic changes in both lungs, felt to be consistent with radiation pneumonitis. She has now completed a course of steroid therapy. During this time she has continued adjuvant hormonal therapy with anastrozole, but her Kadcyla has remained on hold. She had some improvement in her performance status with the steroid therapy, though recently she has been a little more short of breath again. There was an increase in her liver enzymes, but that improved following a decrease in the prednisone dosage to 10 mg daily. During follow-up she continued her adjuvant hormonal therapy with anastrozole, and she was tapered off prednisone. At her scheduled visit on 08/13/2020 she reported new onset of rectal bleeding, and she is scheduled to have colonoscopy with Dr. Pompa next week. 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 There has been no evidence of recurrence/progression of the breast cancer. Plan: 1. She was offered hydration today to include normal saline, Zofran, IV Flagyl. 2. We will also start her on oral Flagyl and Lomotil. She was also given written instructions that she can try adding the Imodium and Lomotil alternating if needed. We also discussed blackberry juice. 3. We will also send in a prescription for refill of her Compazine for nausea. 4. Labs from today reviewed in detail discussed with Ms. Zheng and a copy was given to her. WBC 6.1, hemoglobin 13.8, platelets 116,000, ANC is 3800. Potassium 3.1 creatinine 1.1 calcium 8.7 albumin 2.9 LFTs are normal. We also discussed her [facility] report and a copy was given to her. 5. She states her potassium is low because she had not been taking it. She states she will resume it today. 6. I have asked her not to take her Lasix once a week if she is not having any edema or if she continues to have the significant diarrhea when she is due for her next Lasix. We discussed the reason being concerns for dehydration. 7. I encouraged her hydration daily if needed but she states she thinks that she will be okay . She is planning a trip over the holidays and is concerned that she may not build to make it due to the diarrhea. 8. Ms. Zheng was instructed to contact us before at noon due to the holiday if her diarrhea has not improved. 9. For follow-up of her breast cancer we will plan to see her back in a month with CBC CMP. She is instructed to contact us in interim if questions or problems arise. 10. She states she has almost finished antibiotics given to her by Dr. Pompa after her colonoscopy. She states the diarrhea has not been any better or worse since taking those antibiotics as well. Signed By: Christopher Katz-, AOCNP Tab Rascon MD <<Signature on File>>
== END 2020-10-25 23:59 | disposition home or self-care (01) ==
LOC: ONCMED 06:11
PROVIDERS: PCP Nurse Practitioner Family; Visit Provider Nurse Practitioner
DX: C50.811 Malignant neoplasm of overlapping sites of right female breast (principal); C50.812 Malignant neoplasm of overlapping sites of left female breast; Z17.0 Estrogen receptor positive status [ER+]; D70.1 Agranulocytosis secondary to cancer chemotherapy; T45.1X5A Adverse effect of antineoplastic and immunosuppressive drugs, initial encounter; D69.59 Other secondary thrombocytopenia; I10 Essential (primary) hypertension; E03.9 Hypothyroidism, unspecified; Z92.21 Personal history of antineoplastic chemotherapy; Z79.899 Other long term (current) drug therapy
CPT/HCPCS: 80053; 85025; 96361; 96365; 96367; 96375; 99214; J1100; J2405; J3490; J7030; S0030

== ENCOUNTER 2020-11-20 11:09 | Outpatient (CLI) | payer MEDICARE, OTHER, SELFPAY ==
[2020-11-20] MEDS: sodium chloride 0.9% 1,000 ML 999 ML IV (12:00)
[2020-11-20 12:01] LABS: Basophils # 0.1 10^3/uL (0.0-0.1); Basophils % 1.5 %; Eosinophils # 0.1 10^3/uL (0.0-0.8); Eosinophils % 3.3 %; Hematocrit 41.1 % (37.0-47.0); Hemoglobin 13.8 g/dL (11.5-15.3); Lymphocytes # 0.4 10^3/uL (0.8-4.8); Lymphocytes % 10.8 %; Mean Corpuscular HGB Conc 33.6 g/dL (30.0-36.0); Mean Corpuscular Hemoglobin 34.8 pg (28.0-34.0); Mean Corpuscular Volume 103.8 fL (81-99); Mean Platelet Volume 11.2 fL (7.4-10.4); Monocytes # 0.6 10^3/uL (0.2-0.9); Monocytes % 14.8 %; Neutrophils # 2.76 10^3/uL (1.8-7.7); Neutrophils % 69.3 %; Nucleated Red Blood Cells % 0 %; Platelet Count 107 10^3/cmm (130-400); Red Blood Count 3.96 10^6/uL (4.1-5.3); Red Cell Distribution Width 13.9 % (12.1-15.1)
[2020-11-20 12:27] LABS: Alanine Aminotransferase 7 U/L (0-33); Albumin Level 3.1 g/dL (3.5-5.2); Alkaline Phosphatase 117 IU/L (35-105); Aspartate Amino Transferase 17 U/L (0-32); Blood Urea Nitrogen 12 mg/dL (8-23); Calcium 9.4 mg/dL (8.5-10.5); Carbon Dioxide 26 mmol/L (22-29); Chloride 99 mmol/L (98-107); Glomerular Filtration Rate 62.3 mL/min (90-130); Glucose 105 mg/dL (65-115); Osmolality Calculated 280 mOsm/kg (285-295); Sodium 135 mmol/L (136-145); Total Bilirubin 0.8 mg/dL (0.15-1.2); Total Protein 7.1 g/dL (6.6-8.7)
== END 2020-11-20 11:10 | disposition home or self-care (01) ==
PROVIDERS: Internal Medicine Medical Oncology; PCP Nurse Practitioner Family; Visit Provider Nurse Practitioner
DX: C50.811 Malignant neoplasm of overlapping sites of right female breast (principal); C50.812 Malignant neoplasm of overlapping sites of left female breast; Z17.0 Estrogen receptor positive status [ER+]; R19.7 Diarrhea, unspecified; R63.4 Abnormal weight loss; D69.59 Other secondary thrombocytopenia; D70.1 Agranulocytosis secondary to cancer chemotherapy; T45.1X5A Adverse effect of antineoplastic and immunosuppressive drugs, initial encounter
CPT/HCPCS: 36415; 80053; 85025; 87493; 87506; 96360; J7030

== ENCOUNTER 2020-12-03 06:01 | Outpatient (CLI) | payer MEDICARE, OTHER, SELFPAY ==
--- NOTE | 2020-12-04 07:31 | ONC FU_ITS ---
Dr. Rascon Patient Follow-Up Note Patient: Bee Zheng Unit #: [id number]: 1950 Dicatated By: Tab Rascon M.D.Date of Visit:Dec 03, 2020 Onc Med Follow-up/Prog Note Chief Complaint: Bilateral breast cancer. History of Present Illness: This is a 70 year-old woman with bilateral invasive breast cancer, both locally advanced. The right breast was grade 1 infiltrating ductal carcinoma, post treatment stage IIA (ypT1c, ypN2a, M0), ER/NE positive and HER-2/bernadine negative. The left breast cancer was grade 3 infiltrating ductal carcinoma, post treatment stage at least IB (ypT2, ypN2a, M0), ER/NE positive and HER-2/bernadine positive. She had presented with gradually worsening swelling and firmness in her breasts after she had sustained a chest injury in a fall about 9 months ago. Bilateral mammograms on 03/23/2019 were BI-RADS 5, highly suggestive of malignancy. Findings included areas of dense asymmetry in the central right breast measuring 3.5 cm and in the central left breast measuring 4.5 by 3.9 cm. The right breast ultrasound showed an irregular hypoechoic mass at 12:00, middle depth, measuring 3.5 x 2.2 cm. Also noted was eccentric thickening of a lymph node in the right axilla. The left breast ultrasound showed a large amount of shadowing within the central breast mass containing calcifications at 12:00, measuring 4.6 x 3.7 cm. There were small benign-appearing lymph nodes on the left. She underwent bilateral ultrasound-guided biopsies on 04/06/2019. The left breast showed grade 3 infiltrating ductal carcinoma with a minor DCIS component. The breast prognostic profile showed ER positive at 87% and NE positive at 72%. There was overexpression of HER-2/bernadine, 3+ by IHC and amplification ratio by FISH of 2.3 with 7.0 HER-2 copies/cell. The Ki-67 was unfavorable at 22%. The right breast showed grade 2 infiltrating ductal carcinoma. A subsequent prognostic profile on the right breast biopsy showed ER positive at 87% and NE positive at 21%. That tumor was negative for overexpression of HER-2/bernadine, 1+ by IHC and amplification ratio by FISH of 1.0 with 2.4 HER-2 copies/cell. Staging PET/CT on 05/07/2019 showed FDG avid right breast lesion measuring 2.1 cm, SUV 13.7, and a solitary hypermetabolic right axillary lymph node with SUV 5.3, consistent with local metastatic disease. Other right axillary lymph nodes were too small to characterize by PET. The left breast showed 2 nearly contiguous lesions, the more dominant measuring 2.5 x 3.8 cm with SUV 8.3. The more inferior and lateral lesion measured 1.3 x 1.5 cm with SUV 11.7. Left axillary lymph nodes were too small to characterize by PET. There were no areas of uptake to suggest any other metastatic disease. A needle biopsy of the right axillary lymph node on 05/19/2019 showed metastatic carcinoma most consistent with breast primary. Given those findings and with HER-2/bernadine positive disease in the left breast, she was recommended to undergo neoadjuvant chemotherapy with TCH-P. On 06/02/2019 she began cycle 1 of neoadjuvant chemotherapy with TCH-P. She tolerated the treatment without acute toxicity. She subsequently developed pretty severe diarrhea, beginning around a 3 or 4. It lasted for 2 weeks. She continued with cycle 2 on 06/28/2019. That treatment was complicated by a pretty severe skin eruption, and she continued to have diarrhea. With cycle 3 on 07/26/2019 I did opt to omit the docetaxel. With had cycle there was no recurrence of skin eruption, but she continued to have severe diarrhea. With cycle 4, on 08/23/2019, I opted to admit the Perjeta and replace the taxane portion of her chemotherapy with Abraxane. On 08/29/2019 she was admitted to the hospital with severe pancytopenia. She continued to have diarrhea and she also developed significant liver dysfunction. She required transfusion of PRBC and platelets. She had uneventful recovery of her white blood cell count, but she continued to have severe thrombocytopenia at discharge, requiring additional outpatient platelet pheresis. I had seen her for a follow-up visit on 09/20/2019. Given the multiple toxicities she had experienced, I opted not to attempt any further chemotherapy. A restaging PET/CT on 09/24/2019 showed primary right breast carcinoma measuring 1.6 cm with SUV 4.6, significantly improved from the prior study. The solitary right axillary lymph node had resolved. The nearly contiguous left breast lesions were reported to have SUV of 3.1, also representing a significant response to therapy. At her follow-up visit on 10/25/2019 she still had very limited activity, and she also continued to have significant lower extremity edema. At that point her treatment remained on hold. Her medical history is otherwise significant in that she had presented in 2014 anemia, severe enough to require transfusion. This was ultimately determined to be due to endometrial cancer, for which she underwent hysterectomy/bilateral salpingo-oophorectomy. Those records are not available at this time. She indicates that there was no lymph node involvement. She apparently did receive postoperative radiation with HDR implant. There has been no evidence of recurrence of the endometrial cancer. At her follow-up visit on 11/01/2019 she had recovered sufficiently to resume treatment with single agent Herceptin at a 3-week dosing schedule. She tolerated it without significant toxicity. On 11/17/2019 she underwent bilateral modified radical mastectomies. Pathology on the left breast showed grade 2 invasive ductal carcinoma, multifocal, with the largest focus measuring 2.8 cm in maximum diameter. There was invasion into the dermis, but without skin ulceration. There was a small component of nuclear grade 1 ductal carcinoma in situ. The margins were negative. There was involvement in 6 of 8 axillary lymph nodes with the largest metastatic deposit measuring 6 mm. Pathologic staging was ypT2, ypN2a. The right breast showed grade 1 invasive ductal carcinoma measuring 1.3 cm in maximum diameter. There was an extensive component of nuclear grade 2 intraductal cancer, estimated at 13 mm. The margins were uninvolved. There was involvement in 8 of 8 axillary lymph nodes with the largest metastatic deposit measuring 5 mm. Pathologic staging was ypT1c, ypN2a. She had no complications with the surgery. She was able to continue single agent Herceptin at the 3- week dosing schedue. As of 12/13/2019 she had received her 3rd cycle. During that time she did show gradual improvement in her neuropathy and performance status. As of her visit on 01/03/2020 I opted to change her systemic therapy to Kadcyla at 3.6 mg/kg by IV infusion. At that time, she also began adjuvant hormonal therapy with anastrozole 1 mg daily. She tolerated the initial infusion of Kadcyla with no adverse effects. She continued with cycle 2 on 01/24/2020, and she began chest wall radiation on 01/25/2020. Her 3rd cycle of Kadcyla was delayed due to neutropenia. She went on to complete radiation on 03/06/2020, 5040 cGy to each chest wall. She had then presented with increased shortness of breath. Her CT pulmonary angiogram on 04/09/2020 showed no evidence for pulmonary embolus. She was small right pleural and pericardial effusions, which were new. The most significant finding was fibrotic appearing airspace infiltrates in the mid and upper lungs anteriorly, also new. The findings were felt to be most consistent with radiation pneumonitis. She began on steroid therapy. As of her follow-up visit on 05/01/2020, she was showing clinical improvement, and her prednisone dosage was decreased to 10 mg daily. Her restaging CT scans on 05/31/2020 showed moderate chronic emphysematous changes, with no acute pulmonary infiltrates. 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 There was also mild but stable dilatation of the main pulmonary arteries. There was no evidence of metastatic disease in the chest, abdomen, or pelvis. With those findings, she continued adjuvant hormonal therapy with anastrozole. I did not attempt to restart Kadcyla or Herceptin. During follow-up her prednisone dosage was gradually tapered. At her scheduled visit on 08/13/2020 she reported new onset of rectal bleeding. Colonoscopy by Dr. Pompa was unrevealing. Her other medical illnesses include hypertension and hypothyroidism. She has a history of smoking 1-2 packs of cigarettes daily for 50 years. She quit smoking in 2014. She has alcohol use of at least a 6-pack of beer daily. INTERIM HISTORY: She has been feeling pretty good generally. She still uses a walker with ambulation, but she is able to do light work. ECOG score is 1. Her appetite comes and goes. Her weight is back down about 10 pounds. She does not have fever, night sweats, or hot flashes. She says she always has sinus drainage and she has nonproductive cough. Her breathing is getting better. She does not complain of chest pain. She still occasionally has nausea. The rectal bleeding seems to have completely resolved, but she has continued to have diarrhea. It is manageable with Lomotil, but she has been having to take 2 tablets 4 times a day. She continues to have some aching in her joints. She has just occasional headache and she occasionally has lightheadedness. She continues to have neuropathy in her hands and in her legs/feet. She is seen for a follow-up visit. She has been feeling pretty good. She has now tapered off prednisone. She continues, though, to have limited activity. Her ECOG score is 1. She has good appetite. She has no fever, night sweats, or hot flashes. She still has some shortness of breath, but her breathing is better than it was. She has occasional nonproductive cough. She does not complain of chest pain. She continues to have some diarrhea. She is still having some red blood in the stool, though not as much. She is scheduled to have a colonoscopy on 27 September. She has no complaints. She has no significant joint or bone pain. She has had some headaches. She continues to have neuropathy in her legs/feet and to a lesser extent in her hands. She says her legs feel like weight. Medications: Anastrozole 1 Tablet (of 1 mg) Oral daily, Calcium + D3 1 Tablet Oral daily, Imodium A-D 2 Tablet (of 2 mg) Oral b.i.d. PRN, Lasix 1 Tablet (of 40 mg) Oral daily PRN, Levothyroxine Sodium 1 (112 mcg) Tablet Oral daily, Potassium Chloride ER 1 Tablet (of 10 meq) Tablet, controlled release Oral daily, Prochlorperazine Maleate 1 Tablet (of 10 mg) Oral q 4 hours PRN Allergies: Levaquin Vital Signs: Performed on Dec 03, 2020 12:29 Height - 66.00 in Weight - 165.2 lbs (LOW) BSA - 1.84 sq.m BMI - 26.66 Temperature - 98.0 F (LOW) Pulse - 96 /min Respiration - 18 /min BP - 118/69 mm(hg) O2 Sat - 96 % Pain - 0 Fatigue - 5 Physical Examination: Constitutional - She looks pretty good generally, Eyes - Sclerae nonicteric. Conjunctivae clear, ENMT - No lesions noted in the oral cavity, Hematologic/Lymphatic - No cervical or clavicular adenopathy, Respiratory - Lungs sound clear, Cardiovascular - Heart rhythm is irregular. There is no murmur, gallop, or rub noted, Breasts - There are no chest wall lesions noted. There is no axillary adenopathy, Abdomen - Soft. Liver and spleen are not enlarged. There is no abdominal mass or ascites noted and there is no inguinal adenopathy, Extremities - There are mild venous stasis changes bilaterally. There is slight edema, Neurologic - There is weakness and both legs. She does not appear to have any focal neurologic deficit. Lab/Imaging: Test performed on Nov 20, 2020 11:34 Sodium 135 mmol/L Potassium 4.0 mmol/L Chloride 99 mmol/L CO2 26 mmol/L Anion Gap 14.0 BUN 12 mg/dL Creatinine 0.9 mg/dL Cr Clearance (Est) 76.4300 mL/min eGFR 62.3 mL/min Glucose 105 mg/dL Osmolality - Calculated 280 mOsm/kg Calcium 9.4 mg/dL Protein, Total 7.1 g/dL Albumin 3.1 g/dL Globulin 4.0 g/dL Bilirubin, Total 0.8 mg/dL ALT (SGPT) 7 U/L AST (SGOT) 17 U/L Alkaline Phosphatase 117 IU/L WBC 4.0 10 3/uL RBC 3.96 10 6/uL HGB 13.8 g/dL HCT 41.1 % MCV 103.8 fL MCH 34.8 pg MCHC 33.6 g/dL RDW 13.9 % Platelet Count 107 10 3/cmm MPV 11.2 fL Neutrophils 2.76 10 3/uL Lymphocytes 0.4 10 3/uL Monocytes 0.6 10 3/uL Eosinophils 0.1 10 3/uL Basophils 0.1 10 3/uL Neutrophil % 69.3 % Lymphocyte % 10.8 % Monocyte % 14.8 % Eosinophil % 3.3 % Basophils % 1.5 % NRBC % 0 % Problem List: 1. Bilateral invasive breast cancer, both locally advanced. The right breast cancer was grade 1 infiltrating ductal carcinoma, post treatment stage IIA (ypT1c, ypN2a, M0), ER/NE positive and HER-2/bernadine negative. The left breast cancer was grade 3 infiltrating ductal carcinoma, post treatment stage at least IB (ypT2, ypN2a, M0), ER/NE positive and HER-2/bernadine positive. 2. She underwent bilateral ultrasound directed breast biopsies on 04/06/2019, and she underwent ultrasound directed needle biopsy of a right axillary lymph node on 05/19/2019. 3. She was given neoadjuvant chemotherapy with TCH-P, cycle 1 beginning on 06/02/2019. She experienced multiple toxicities including diarrhea and neuropathy, severe enough to require modifications in her treatment. The chemotherapy was stopped after 4 cycles due to toxicity. 4. As of 11/01/2019 she resumed treatment with single agent Herceptin at a 3-week dosing interval. 5. On 11/17/2019 she underwent modified radical mastectomy bilaterally. 6. Hypertension. 7. Hypothyroidism. 8. She has a history of endometrial cancer for which she underwent hysterectomy/bilateral salpingo-oophorectomy and postoperative HDR implant radiation in 2014. Problems Addressed with this Encounter and Plan: 1. Bilateral invasive breast cancer, both locally advanced. The right breast cancer was grade 1 infiltrating ductal carcinoma, post treatment stage IIA (ypT1c, ypN2a, M0), ER/NE positive and HER-2/bernadine negative. The left breast cancer was grade 3 infiltrating ductal carcinoma, post treatment stage at least IB (ypT2, ypN2a, M0), ER/NE positive and HER-2/bernadine positive. She underwent bilateral ultrasound directed breast biopsies on 04/06/2019, and she underwent ultrasound directed needle biopsy of a right axillary lymph node on 05/19/2019. Her subsequent breast cancer treatment included: 1. Neoadjuvant chemotherapy with TCH-P for 4 cycles 08/23/2019, stopped due to multiple toxicities, including peripheral neuropathy.. 2. Herceptin monotherapy beginning 11/01/2019. 3. Modified radical mastectomy bilaterally on 11/17/2019. 4. Adjuvant hormonal therapy with anastrozole 1 mg daily beginning 01/03/2020. 5. Kadcyla for 2 cycles, on 01/03/2020 and 01/24/2020, stopped due to toxicity. 6. Prophylactic chest wall radiation, completed on 03/06/2020 to 5040 cGy to each chest wall. She continues to have somewhat marginal performance status, but thus far she has tolerated the anastrozole with no significant adverse effects, and thus far there has been no evidence of recurrence of the breast cancer. She will continue anastrozole 1 mg daily. She will be scheduled for a follow-up visit in 3 months. 2. She has treatment related peripheral neuropathy. She has significant disability associated with it. She continues symptomatic/supportive treatment. 3. She has ongoing problems with diarrhea following her chemotherapy. A specific cause has not been determined. Her stool was negative for C. difficile and for enteric pathogens. She has been managing it adequately with Lomotil, though she has been having to take 2 tablets 4 times a day. As such, I will have her try a bile acid sequestering agent. 4. She had suspected radiation pneumonitis. She has been able to taper off prednisone. Signed By: Tab Rascon M.D. <<Signature on File>>
== END 2020-12-03 06:02 | disposition home or self-care (01) ==
LOC: ONCMED 06:03
PROVIDERS: PCP Nurse Practitioner Family; Visit Provider Internal Medicine Medical Oncology
DX: C50.811 Malignant neoplasm of overlapping sites of right female breast (principal); C50.812 Malignant neoplasm of overlapping sites of left female breast; Z17.0 Estrogen receptor positive status [ER+]; D70.1 Agranulocytosis secondary to cancer chemotherapy; G62.0 Drug-induced polyneuropathy; T45.1X5A Adverse effect of antineoplastic and immunosuppressive drugs, initial encounter; D69.59 Other secondary thrombocytopenia; I10 Essential (primary) hypertension; E03.9 Hypothyroidism, unspecified; Z90.11 Acquired absence of right breast and nipple; Z90.12 Acquired absence of left breast and nipple; Z85.41 Personal history of malignant neoplasm of cervix uteri; Z90.710 Acquired absence of both cervix and uterus; Z79.811 Long term (current) use of aromatase inhibitors
CPT/HCPCS: 99214

== ENCOUNTER 2021-01-04 08:46 | Outpatient (CLI) | payer MEDICARE, OTHER, SELFPAY | END 2021-01-04 08:47 | disposition home or self-care (01) | PROVIDERS: PCP Nurse Practitioner Family; Visit Provider Internal Medicine Medical Oncology | DX: Z45.2 Encounter for adjustment and management of vascular access device (principal) | CPT/HCPCS: 96523 ==

== ENCOUNTER 2021-02-08 08:42 | Outpatient (CLI) | payer MEDICARE, OTHER, SELFPAY | END 2021-02-08 08:43 | disposition home or self-care (01) | PROVIDERS: PCP Nurse Practitioner Family; Visit Provider Nurse Practitioner | DX: Z45.2 Encounter for adjustment and management of vascular access device (principal) | CPT/HCPCS: 96523 ==

== ENCOUNTER 2021-03-07 12:05 | Outpatient (CLI) | payer MEDICARE, OTHER, SELFPAY ==
[2021-03-07 12:57] LABS: Basophils # 0.1 10^3/uL (0.0-0.1); Basophils % 2.4 %; Eosinophils # 0.1 10^3/uL (0.0-0.8); Eosinophils % 3.7 %; Hematocrit 38.7 % (37.0-47.0); Hemoglobin 12.5 g/dL (11.5-15.3); Lymphocytes # 0.6 10^3/uL (0.8-4.8); Lymphocytes % 16.5 %; Mean Corpuscular HGB Conc 32.3 g/dL (30.0-36.0); Mean Corpuscular Hemoglobin 33.7 pg (28.0-34.0); Mean Corpuscular Volume 104.3 fL (81-99); Mean Platelet Volume 10.9 fL (7.4-10.4); Monocytes # 0.4 10^3/uL (0.2-0.9); Monocytes % 11.7 %; Neutrophils # 2.45 10^3/uL (1.8-7.7); Neutrophils % 65.4 %; Nucleated Red Blood Cells % 0 %; Platelet Count 99 10^3/cmm (130-400); Red Blood Count 3.71 10^6/uL (4.1-5.3); Red Cell Distribution Width 13.1 % (12.1-15.1); White Blood Count 3.8 10^3/uL (4.0-10.0)
[2021-03-07 13:32] LABS: Alanine Aminotransferase 14 U/L (0-33); Albumin Level 3.5 g/dL (3.5-5.2); Alkaline Phosphatase 165 IU/L (35-105); Anion Gap 13.2 (5-19); Aspartate Amino Transferase 24 U/L (0-32); Blood Urea Nitrogen 14 mg/dL (8-23); Calcium 9.1 mg/dL (8.5-10.5); Carbon Dioxide 25 mmol/L (22-29); Chloride 103 mmol/L (98-107); Globulin 3.8 g/dL (1.3-4.6); Glomerular Filtration Rate 71.3 mL/min (90-130); Glucose 87 mg/dL (65-115); Osmolality Calculated 284 mOsm/kg (285-295); Potassium 4.2 mmol/L (3.5-5.1); Sodium 137 mmol/L (136-145); Total Bilirubin 0.7 mg/dL (0.15-1.2); Total Protein 7.3 g/dL (6.6-8.7)
--- NOTE | 2021-03-10 09:50 | ONC FU_ITS ---
Dr. Rascon Patient Follow-Up Note Patient: Bee Zheng Unit #: [id number]: 1950 Dicatated By: Tab Rascon M.D.Date of Visit:March 07, 2021 Onc Med Follow-up/Prog Note Chief Complaint: Bilateral breast cancer. History of Present Illness: This is a 70 year-old woman with bilateral invasive breast cancer, both locally advanced. The right breast was grade 1 infiltrating ductal carcinoma, post treatment stage IIA (ypT1c, ypN2a, M0), ER/MN positive and HER-2/bernadine negative. The left breast cancer was grade 3 infiltrating ductal carcinoma, post treatment stage at least IB (ypT2, ypN2a, M0), ER/MN positive and HER-2/bernadine positive. She had presented with gradually worsening swelling and firmness in her breasts after she had sustained a chest injury in a fall about 9 months ago. Bilateral mammograms on 03/23/2019 were BI-RADS 5, highly suggestive of malignancy. Findings included areas of dense asymmetry in the central right breast measuring 3.5 cm and in the central left breast measuring 4.5 by 3.9 cm. The right breast ultrasound showed an irregular hypoechoic mass at 12:00, middle depth, measuring 3.5 x 2.2 cm. Also noted was eccentric thickening of a lymph node in the right axilla. The left breast ultrasound showed a large amount of shadowing within the central breast mass containing calcifications at 12:00, measuring 4.6 x 3.7 cm. There were small benign-appearing lymph nodes on the left. She underwent bilateral ultrasound-guided biopsies on 04/06/2019. The left breast showed grade 3 infiltrating ductal carcinoma with a minor DCIS component. The breast prognostic profile showed ER positive at 87% and MN positive at 72%. There was overexpression of HER-2/bernadine, 3+ by IHC and amplification ratio by FISH of 2.3 with 7.0 HER-2 copies/cell. The Ki-67 was unfavorable at 22%. The right breast showed grade 2 infiltrating ductal carcinoma. A subsequent prognostic profile on the right breast biopsy showed ER positive at 87% and MN positive at 21%. That tumor was negative for overexpression of HER-2/bernadine, 1+ by IHC and amplification ratio by FISH of 1.0 with 2.4 HER-2 copies/cell. Staging PET/CT on 05/07/2019 showed FDG avid right breast lesion measuring 2.1 cm, SUV 13.7, and a solitary hypermetabolic right axillary lymph node with SUV 5.3, consistent with local metastatic disease. Other right axillary lymph nodes were too small to characterize by PET. The left breast showed 2 nearly contiguous lesions, the more dominant measuring 2.5 x 3.8 cm with SUV 8.3. The more inferior and lateral lesion measured 1.3 x 1.5 cm with SUV 11.7. Left axillary lymph nodes were too small to characterize by PET. There were no areas of uptake to suggest any other metastatic disease. A needle biopsy of the right axillary lymph node on 05/19/2019 showed metastatic carcinoma most consistent with breast primary. Given those findings and with HER-2/bernadine positive disease in the left breast, she was recommended to undergo neoadjuvant chemotherapy with TCH-P. On 06/02/2019 she began cycle 1 of neoadjuvant chemotherapy with TCH-P. She tolerated the treatment without acute toxicity. She subsequently developed pretty severe diarrhea, beginning around a 3 or 4. It lasted for 2 weeks. She continued with cycle 2 on 06/28/2019. That treatment was complicated by a pretty severe skin eruption, and she continued to have diarrhea. With cycle 3 on 07/26/2019 I did opt to omit the docetaxel. With had cycle there was no recurrence of skin eruption, but she continued to have severe diarrhea. With cycle 4, on 08/23/2019, I opted to admit the Perjeta and replace the taxane portion of her chemotherapy with Abraxane. On 08/29/2019 she was admitted to the hospital with severe pancytopenia. She continued to have diarrhea and she also developed significant liver dysfunction. She required transfusion of PRBC and platelets. She had uneventful recovery of her white blood cell count, but she continued to have severe thrombocytopenia at discharge, requiring additional outpatient platelet pheresis. I had seen her for a follow-up visit on 09/20/2019. Given the multiple toxicities she had experienced, I opted not to attempt any further chemotherapy. A restaging PET/CT on 09/24/2019 showed primary right breast carcinoma measuring 1.6 cm with SUV 4.6, significantly improved from the prior study. The solitary right axillary lymph node had resolved. The nearly contiguous left breast lesions were reported to have SUV of 3.1, also representing a significant response to therapy. At her follow-up visit on 10/25/2019 she still had very limited activity, and she also continued to have significant lower extremity edema. At that point her treatment remained on hold. Her medical history is otherwise significant in that she had presented in 2014 anemia, severe enough to require transfusion. This was ultimately determined to be due to endometrial cancer, for which she underwent hysterectomy/bilateral salpingo-oophorectomy. Those records are not available at this time. She indicates that there was no lymph node involvement. She apparently did receive postoperative radiation with HDR implant. There has been no evidence of recurrence of the endometrial cancer. At her follow-up visit on 11/01/2019 she had recovered sufficiently to resume treatment with single agent Herceptin at a 3-week dosing schedule. She tolerated it without significant toxicity. On 11/17/2019 she underwent bilateral modified radical mastectomies. Pathology on the left breast showed grade 2 invasive ductal carcinoma, multifocal, with the largest focus measuring 2.8 cm in maximum diameter. There was invasion into the dermis, but without skin ulceration. There was a small component of nuclear grade 1 ductal carcinoma in situ. The margins were negative. There was involvement in 6 of 8 axillary lymph nodes with the largest metastatic deposit measuring 6 mm. Pathologic staging was ypT2, ypN2a. The right breast showed grade 1 invasive ductal carcinoma measuring 1.3 cm in maximum diameter. There was an extensive component of nuclear grade 2 intraductal cancer, estimated at 13 mm. The margins were uninvolved. There was involvement in 8 of 8 axillary lymph nodes with the largest metastatic deposit measuring 5 mm. Pathologic staging was ypT1c, ypN2a. She had no complications with the surgery. She was able to continue single agent Herceptin at the 3- week dosing schedue. As of 12/13/2019 she had received her 3rd cycle. During that time she did show gradual improvement in her neuropathy and performance status. As of her visit on 01/03/2020 I opted to change her systemic therapy to Kadcyla at 3.6 mg/kg by IV infusion. At that time, she also began adjuvant hormonal therapy with anastrozole 1 mg daily. She tolerated the initial infusion of Kadcyla with no adverse effects. She continued with cycle 2 on 01/24/2020, and she began chest wall radiation on 01/25/2020. Her 3rd cycle of Kadcyla was delayed due to neutropenia. She went on to complete radiation on 03/06/2020, 5040 cGy to each chest wall. She had then presented with increased shortness of breath. Her CT pulmonary angiogram on 04/09/2020 showed no evidence for pulmonary embolus. She was small right pleural and pericardial effusions, which were new. The most significant finding was fibrotic appearing airspace infiltrates in the mid and upper lungs anteriorly, also new. The findings were felt to be most consistent with radiation pneumonitis. She began on steroid therapy. As of her follow-up visit on 05/01/2020, she was showing clinical improvement, and her prednisone dosage was decreased to 10 mg daily. Her restaging CT scans on 05/31/2020 showed moderate chronic emphysematous changes, with no acute pulmonary infiltrates. 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 There was also mild but stable dilatation of the main pulmonary arteries. There was no evidence of metastatic disease in the chest, abdomen, or pelvis. With those findings, she continued adjuvant hormonal therapy with anastrozole. I did not attempt to restart Kadcyla or Herceptin. During follow-up her prednisone dosage was gradually tapered. At her scheduled visit on 08/13/2020 she reported new onset of rectal bleeding. Colonoscopy by Dr. Pompa was unrevealing. Her other medical illnesses include hypertension and hypothyroidism. She has a history of smoking 1-2 packs of cigarettes daily for 50 years. She quit smoking in 2014. She has alcohol use of at least a 6-pack of beer daily. INTERIM HISTORY: She is seen for a follow-up visit. She has been feeling pretty good generally. She still complains that her legs are wobbly and she has limited activity tolerance. She is able to do light work. ECOG score is 1. Her appetite lately has been better. She does not have fever, night sweats, or hot flashes. She has some sinus drainage and cough. She does not complain of shortness of breath or chest pain. She still has intermittent diarrhea, sometimes with red blood in the stool. She just attributes it to being irritated. She has no other GI or complaints. She sometimes has a twinge in her back. She has no other joint or bone pain. She has just occasional headache. She only rarely has dizziness. She does complain that the neuropathy in her legs is bad. Medications: Anastrozole 1 Tablet (of 1 mg) Oral daily, Calcium + D3 1 Tablet Oral daily, Imodium A-D 2 Tablet (of 2 mg) Oral b.i.d. PRN, Lasix 1 Tablet (of 40 mg) Oral daily PRN, Levothyroxine Sodium 1 (112 mcg) Tablet Oral daily, Potassium Chloride ER 1 Tablet (of 10 meq) Tablet, controlled release Oral daily, Prochlorperazine Maleate 1 Tablet (of 10 mg) Oral q 4 hours PRN Allergies: Levaquin Vital Signs: Performed on March 07, 2021 13:59 Height - 66.00 in Weight - 171 lbs (HIGH) BSA - 1.87 sq.m BMI - 27.60 Temperature - 97.9 F (LOW) Pulse - 109 /min (HIGH) Respiration - 18 /min BP - 109/69 mm(hg) O2 Sat - 98 % Pain - 0 Fatigue - 0 Physical Examination: Constitutional - She looks pretty good generally, Eyes - Sclerae nonicteric. Conjunctivae clear, ENMT - No lesions noted in the oral cavity, Hematologic/Lymphatic - No cervical, clavicular, or axillary adenopathy, Respiratory - Lungs sound clear, Cardiovascular - Heart rhythm is irregular. There is no murmur, gallop, or rub noted, Abdomen - Soft. Liver and spleen are not enlarged. There is no abdominal mass or ascites noted and there is no inguinal adenopathy, Extremities - There are mild venous stasis changes bilaterally. There is no edema, Neurologic - She still has weakness in both legs. There are no focal neurologic deficits noted. Lab/Imaging: Test performed on March 07, 2021 12:30 Sodium 137 mmol/L TSH 7.00 uIU/mL Potassium 4.2 mmol/L Chloride 103 mmol/L CO2 25 mmol/L Anion Gap 13.2 BUN 14 mg/dL Creatinine 0.8 mg/dL Cr Clearance (Est) 85.9800 mL/min eGFR 71.3 mL/min Glucose 87 mg/dL Osmolality - Calculated 284 mOsm/kg Calcium 9.1 mg/dL Protein, Total 7.3 g/dL Albumin 3.5 g/dL Globulin 3.8 g/dL Bilirubin, Total 0.7 mg/dL ALT (SGPT) 14 U/L AST (SGOT) 24 U/L Alkaline Phosphatase 165 IU/L WBC 3.8 10 3/uL RBC 3.71 10 6/uL HGB 12.5 g/dL HCT 38.7 % MCV 104.3 fL MCH 33.7 pg MCHC 32.3 g/dL RDW 13.1 % Platelet Count 99 10 3/cmm MPV 10.9 fL Neutrophils 2.45 10 3/uL Lymphocytes 0.6 10 3/uL Monocytes 0.4 10 3/uL Eosinophils 0.1 10 3/uL Basophils 0.1 10 3/uL Neutrophil % 65.4 % Lymphocyte % 16.5 % Monocyte % 11.7 % Eosinophil % 3.7 % Basophils % 2.4 % NRBC % 0 % Problem List: 1. Bilateral invasive breast cancer, both locally advanced. The right breast cancer was grade 1 infiltrating ductal carcinoma, post treatment stage IIA (ypT1c, ypN2a, M0), ER/MN positive and HER-2/bernadine negative. The left breast cancer was grade 3 infiltrating ductal carcinoma, post treatment stage at least IB (ypT2, ypN2a, M0), ER/MN positive and HER-2/bernadine positive. The chemotherapy was stopped after 4 cycles due to toxicity. 3. On 11/17/2019 she underwent modified radical mastectomy bilaterally. 4. She has residual chemotherapy related neuropathy. 5. Hypertension. 6. Hypothyroidism. 7. She has a history of endometrial cancer for which she underwent hysterectomy/bilateral salpingo-oophorectomy and postoperative HDR implant radiation in 2014. Problems Addressed with this Encounter and Plan: 1. Patient with bilateral invasive breast cancer, both locally advanced. The right breast cancer was grade 1 infiltrating ductal carcinoma, post treatment stage IIA (ypT1c, ypN2a, M0), ER/MN positive and HER-2/bernadine negative. The left breast cancer was grade 3 infiltrating ductal carcinoma, post treatment stage at least IB (ypT2, ypN2a, M0), ER/MN positive and HER-2/bernadine positive. She underwent bilateral ultrasound directed breast biopsies on 04/06/2019, and she underwent ultrasound directed needle biopsy of a right axillary lymph node on 05/19/2019. Her subsequent breast cancer treatment included: 1. Neoadjuvant chemotherapy with TCH-P for 4 cycles 08/23/2019, stopped due to multiple toxicities, including peripheral neuropathy.. 2. Herceptin monotherapy beginning 11/01/2019. 3. Modified radical mastectomy bilaterally on 11/17/2019. 4. Adjuvant hormonal therapy with anastrozole 1 mg daily beginning 01/03/2020. 5. Kadcyla for 2 cycles, on 01/03/2020 and 01/24/2020, stopped due to toxicity. 6. Prophylactic chest wall radiation, completed on 03/06/2020 to 5040 cGy to each chest wall. During followup she has continued to have somewhat marginal performance status, but she does appear to be showing gradual improvement. Thus far she has tolerated the anastrozole with no significant adverse effects, and thus far there has been no evidence of recurrence of the breast cancer. She will continue her adjuvant hormonal therapy with anastrozole 1 mg daily. She will be scheduled for a follow-up visit in 3 months. 2. She has treatment related peripheral neuropathy with associated disability. She continues symptomatic/supportive treatment. 3. She has continued diarrhea following her chemotherapy, and she has some associated rectal bleeding. Colonoscopy was unrevealing. She is getting some benefit with a bile acid sequestering agent. 4. She had suspected radiation pneumonitis. She was able to taper off prednisone with no recurrence of symptoms. 5. She has hypothyroidism and her TSH is mildly elevated. Her levothyroxine dosage will be increased to 125 mcg daily. Signed By: Tab Rascon M.D. <<Signature on File>>
== END 2021-03-07 12:06 | disposition home or self-care (01) ==
LOC: ONCMED 12:06
PROVIDERS: PCP Nurse Practitioner Family; Visit Provider Internal Medicine Medical Oncology
DX: C50.811 Malignant neoplasm of overlapping sites of right female breast (principal); C50.812 Malignant neoplasm of overlapping sites of left female breast; Z17.0 Estrogen receptor positive status [ER+]; Z90.11 Acquired absence of right breast and nipple; Z90.12 Acquired absence of left breast and nipple; G62.0 Drug-induced polyneuropathy; T45.1X5A Adverse effect of antineoplastic and immunosuppressive drugs, initial encounter; I10 Essential (primary) hypertension; E03.9 Hypothyroidism, unspecified; Z85.41 Personal history of malignant neoplasm of cervix uteri; Z79.899 Other long term (current) drug therapy; Z79.811 Long term (current) use of aromatase inhibitors
CPT/HCPCS: 36591; 80053; 84443; 85025; 99214

== ENCOUNTER 2021-04-12 08:56 | Outpatient (CLI) | payer MEDICARE, OTHER, SELFPAY | END 2021-04-12 08:57 | disposition home or self-care (01) | LOC: ONCMED 08:57 | PROVIDERS: PCP Nurse Practitioner Family; Visit Provider Internal Medicine Medical Oncology | DX: C50.811 Malignant neoplasm of overlapping sites of right female breast (principal); C50.812 Malignant neoplasm of overlapping sites of left female breast; Z17.0 Estrogen receptor positive status [ER+]; Z79.899 Other long term (current) drug therapy | CPT/HCPCS: 36593; 96523 ==

== ENCOUNTER 2021-05-01 13:36 | Emergency (ER) | payer MEDICARE, OTHER, SELFPAY ==
[2021-05-01 14:33] VITALS: BP 85/58; PULSE 90; RESP 18; TEMP 37.1; O2SAT 95; BMI 25.3
[2021-05-01 14:38] VITALS: BP 98/56; PULSE 100; RESP 18; O2SAT 94
--- NOTE | 2021-05-01 14:49 | W.ED.NAVMDI ---
Documented by User: Norman Morgan MD 05/01/21 17:44 HPI - Nausea/Vomiting/Diarrhea General: Chief complaint: Nausea/Vomiting/Diarrhea Stated complaint: fatigued, vomitting, dizziness, low bp Time Seen by Provider: 05/01/21 14:40 History of Present Illness: HPI Narrative: This patient is a 71-year-old female that underwent bilateral mastectomy related breast cancer. Patient has a long history of chronic diarrhea issues and low blood pressures related to her chronic medical conditions. Patient is followed by GI and oncology patient states her blood pressure has been running little bit lower than normal. Patient's normal blood pressures range in the mid to upper 80s systolic. Patient was just seen by GI this couple days ago blood pressure was 88 systolic. She states that the specialist and the PCP have not been worried about her blood pressures. Patient states this morning it felt like it was in the 70s. Patient denies any chest pain or shortness of breath and actually looks pretty healthy at the time for her chronic conditions. Patient states she is on chronic medications for her chronic diarrhea. States she has had diarrhea for over a year since having radiation therapies. For cancer. Will do medical evaluation treat as needed Associated nausea: No Associated symtoms: Denies anxiety, change in vision, chest pain, dysuria, fatigue, headache(s), nausea or palpitations Review of Systems General: Reports: 10 or more systems reviewed and unremarkable except in HPI and below Const: Denies: fever(s), chills, body aches or fatigue Eyes: Denies: change in vision or blurry vision ENMT: Denies: throat pain, hoarseness or mouth pain Card: Denies: chest pain, palpitations, irregular heart rhythm, edema, swelling of feet/ankles or lightheadedness Resp: Denies: dyspnea, productive cough, non-productive cough, wheezing or pain on inspiration GI: Denies: abdominal pain, nausea or vomiting : Denies: flank pain, difficulty voiding, dysuria, urinary frequency, urinary urgency or urinary hesitancy Musc: Denies: neck pain, back pain, extremity pain, extremity swelling, joint pain, joint swelling, joint redness, joint warmth or limited range of motion Skin/Breast: Denies: rash, pruritus, erythema or skin tenderness Neuro: Denies: headache(s), numbness in extremities or weakness in extremities Psych: Denies: anxiety or depression PFSH ED PFSH: Surgical History Status post bilateral mastectomy Family History Other Cancer Social History Smoking and tobacco status: former smoker Alcohol intake: current Physical Exam Const: COMMON NORMALS: no acute distress, average body habitus, patient oriented x3, no limitations, healthy appearing, alert and well nourished HENMT: COMMON NORMALS: normocephalic, atraumatic, hearing grossly normal bilaterally, external ears normal, EAC's normal, TM's normal bilaterally, Normal external nose present, Normal nasal mucous membranes and turbinates present, moist oral mucous membranes, oropharynx normal, dentition normal and gingiva normal HEAD & SCALP: normocephalic and atraumatic NOSE: Normal external nose present and Normal nasal mucous membranes and turbinates present EXTERNAL EAR: Yes external ears normal EXTERNAL AUDITORY CANAL: EAC's normal TYMPANIC MEMBRANE: TM's normal bilaterally Neck/C-Spine: COMMON NORMALS: full ROM, no lymphadenopathy, supple, no meningeal signs, no JVD, Thyroid normal and No carotid bruits THYROID: Thyroid normal Chest: COMMONS NORMALS: normal inspection of the chest, normal palpation of entire chest wall, normal inspection of the breasts and normal palpation of the breasts Breast/axilla inspection: Yes normal inspection of the breasts BREAST/AXILLA PALPATION: Yes normal palpation of the breasts Resp: COMMON NORMALS: normal respiratory effort, No retractions, No use of accessory muscles, clear to auscultation bilaterally and percussion normal AUSCULTATION: clear to auscultation bilaterally PERCUSSION: percussion normal Cardio: COMMON NORMALS: no JVD, regular rate, regular rhythm, S1 normal heart sound present, S2 normal heart sound present, No gallops present (Cardio), No clicks present (Cardio), No murmurs present (Cardio), No rub (Cardio) and Peripheral pulses 2+ throughout RATE: regular rate RHYTHM: regular rhythm HEART SOUNDS: S1 normal heart sound present and S2 normal heart sound present PERIPHERAL PULSES: Peripheral pulses 2+ throughout GI: COMMON NORMALS: Normal to inspection, nondistended, normoactive bowel sounds present, Soft to palpation, non-tender, No hepatosplenomegaly present, no masses and no bruits PALPATION: Yes Soft to palpation and Yes No hepatosplenomegaly present Back/Pelvis: COMMON NORMALS: thoracic and lumbar spine normal to inspection, no thoracic nor lumbar tenderness, thoraco-lumbar ROM normal and straight leg raise negative bilaterally Extremity: COMMON NORMALS: normal to inspection, full ROM, capillary refill normal, no joint enlargement, no clubbing, cyanosis or edema, no calf tenderness and no pedal edema Neuro: COMMON NORMALS: patient oriented x3 SENSORIUM/ORIENTATION: Yes alert MENINGEAL SIGNS: Yes no meningeal signs Course Reevaluation(s): Reevaluation #1: Blood pressure check in bilateral arms. Right arm 89/61. Left arm 88/64. No signs of orthostasis. Right ankle check for comparison 102/56. Most likely with chronic low blood pressure readings in the mid 80s is related to double mastectomy. Patient be normal blood pressures for this patient. We will continue to monitor. Time: 15:18 Consultations: Consultation #1: Care transferred to Dr. Linn for shift change Time: 17:43 Vital Signs: Vital signs: Vital Signs Temperature 98.8 F 05/01/21 14:33 Pulse Rate 100 05/01/21 14:38 Respiratory Rate 18 05/01/21 14:38 Blood Pressure 98/56 05/01/21 14:38 Pulse Oximetry 94 05/01/21 14:38 MDM - Nausea/Vomiting/Diarrhea Lab Data: Labs: Lab Results 05/01/21 05/01/21 Range/Units 15:21 15:21 WBC 6.9 (4.0-10.0) 10^3/ uL RBC 3.65 L (4.1-5.3) 10^6/u L Hgb 12.6 (11.5-15.3) g/dL Hct 40.2 (37.0-47.0) % MCV 110.1 H (81-99) fL MCH 34.5 H (28.0-34.0) pg MCHC 31.3 (30.0-36.0) g/dL RDW 16.0 H (12.1-15.1) % Plt Count 100 L (130-400) 10^3/c mm MPV 10.6 H (7.4-10.4) fL Neut % (Auto) 71.6 % Lymph % (Auto) 12.3 % [place] % (Auto) 11.4 % Eos % (Auto) 2.5 % Baso % (Auto) 1.6 % Neut # (Auto) 4.97 (1.8-7.7) 10^3/u L Lymph # (Auto) 0.9 (0.8-4.8) 10^3/u L [place] # (Auto) 0.8 (0.2-0.9) 10^3/u L Eos # (Auto) 0.2 (0.0-0.8) 10^3/u L Baso # (Auto) 0.1 (0.0-0.1) 10^3/u L Nucleated RBC % (a uto) 0 % Nucleated RBCs # 0.0 /100WBC Sodium 135 L (136-145) mmol/L Potassium 3.8 (3.5-5.1) mmol/L Chloride 102 (98-107) mmol/L Carbon Dioxide 23 (22-29) mmol/L Anion Gap 13.8 (5-19) BUN 11 (8-23) mg/dL Creatinine 0.9 (0.5-0.9) mg/dL GFR Calculation 62.1 L (90-130) mL/min Glucose 85 (65-115) mg/dL Calculated Osmolal ity 279 L (285-295) mOsm/k g Calcium 8.0 L (8.5-10.5) mg/dL Total Bilirubin 0.6 (0.15-1.2) mg/dL AST 27 (0-32) U/L ALT 8 (0-33) U/L Alkaline Phosphata se 142 H (35-105) IU/L Total Protein 5.9 L (6.6-8.7) g/dL Albumin 2.2 L (3.5-5.2) g/dL Globulin 3.7 (1.3-4.6) g/dL Lipase 19 (13-60) U/L Discharge Plan Discharge Patient Disposition: Home Clinical Impression: Dizziness, Chronic diarrhea, Bilateral breast cancer Condition: Stable Prescriptions: No Action pantoprazole 40 mg tablet,delayed release (DR/EC) 40 mg PO QAM Qty: 90 RF: 3 ciprofloxacin HCl [Cipro] 500 mg tablet 500 mg PO BID 7 Days Qty: 14 RF: 0 metronidazole [Flagyl] 500 mg tablet 500 mg PO BID 7 Days Qty: 14 RF: 0 anastrozole 1 mg Tablet 1 mg PO DAILY RF: 0 Euthyrox 125 mcg tablet 125 mcg PO DAILY RF: 0 furosemide 40 mg tablet 40 mg PO DAILY PRN (Reason: swelling) RF: 0 potassium chloride 10 mEq tablet extended release 20 meq PO BID PRN (Reason: with lasix) RF: 0 gabapentin 300 mg capsule 300 mg PO BID RF: 0 Discharge Orders: Discharge ED (Routine); Ordered 05/01/21 Ordered By: Arsen Linn Referrals: Magalie Patino FNP [Primary Care Provider] - Discharge Diet: Usual diet Discharge Activity: Increase activity as tolerated Patient Instructions: Syncope (ED) Coding Level of Care Code ED Medical Reimbursement Manager for Chg Fwd Exam Comprehensive Documented by User: Arsen Linn MD 05/01/21 18:22 HPI - Nausea/Vomiting/Diarrhea General: Chief complaint: Nausea/Vomiting/Diarrhea Stated complaint: fatigued, vomitting, dizziness, low bp Time Seen by Provider: 05/01/21 14:40 PFS ED PFSH: Surgical History Status post bilateral mastectomy Family History Other Cancer Social History Smoking and tobacco status: former smoker Alcohol intake: current Course Vital Signs: Vital signs: Vital Signs Temperature 98.8 F 05/01/21 14:33 Pulse Rate 100 05/01/21 14:38 Respiratory Rate 18 05/01/21 14:38 Blood Pressure 98/56 05/01/21 14:38 Pulse Oximetry 94 05/01/21 14:38 MDM - Nausea/Vomiting/Diarrhea MDM Narrative: Medical decision making narrative: Patient was unable to provide a urine sample and refused straight cath. White count is not elevated. She denies dysuria and frequency. She admits that she has not been drinking enough water recently. Albumin level is low. I suspect hypovolemia is the etiology of her worsening lightheadedness and orthostasis. She admits that she passed out twice. She was offered admission and further work-up, however she prefers to go home. In my presence, she was able to stand up and walk around the room without feeling lightheadedness after receiving fluid bolus. At this time, I feel the risk of cardiac etiology to her syncope is low. She was discharged home in stable condition knowing she is always welcome back in the emergency department if her symptoms get worse before patient follow-up. Lab Data: Labs: Lab Results 05/01/21 05/01/21 Range/Units 15:21 15:21 WBC 6.9 (4.0-10.0) 10^3/ uL RBC 3.65 L (4.1-5.3) 10^6/u L Hgb 12.6 (11.5-15.3) g/dL Hct 40.2 (37.0-47.0) % MCV 110.1 H (81-99) fL MCH 34.5 H (28.0-34.0) pg MCHC 31.3 (30.0-36.0) g/dL RDW 16.0 H (12.1-15.1) % Plt Count 100 L (130-400) 10^3/c mm MPV 10.6 H (7.4-10.4) fL Neut % (Auto) 71.6 % Lymph % (Auto) 12.3 % [place] % (Auto) 11.4 % Eos % (Auto) 2.5 % Baso % (Auto) 1.6 % Neut # (Auto) 4.97 (1.8-7.7) 10^3/u L Lymph # (Auto) 0.9 (0.8-4.8) 10^3/u L [place] # (Auto) 0.8 (0.2-0.9) 10^3/u L Eos # (Auto) 0.2 (0.0-0.8) 10^3/u L Baso # (Auto) 0.1 (0.0-0.1) 10^3/u L Nucleated RBC % (a uto) 0 % Nucleated RBCs # 0.0 /100WBC Sodium 135 L (136-145) mmol/L Potassium 3.8 (3.5-5.1) mmol/L Chloride 102 (98-107) mmol/L Carbon Dioxide 23 (22-29) mmol/L Anion Gap 13.8 (5-19) BUN 11 (8-23) mg/dL Creatinine 0.9 (0.5-0.9) mg/dL GFR Calculation 62.1 L (90-130) mL/min Glucose 85 (65-115) mg/dL Calculated Osmolal ity 279 L (285-295) mOsm/k g Calcium 8.0 L (8.5-10.5) mg/dL Total Bilirubin 0.6 (0.15-1.2) mg/dL AST 27 (0-32) U/L ALT 8 (0-33) U/L Alkaline Phosphata se 142 H (35-105) IU/L Total Protein 5.9 L (6.6-8.7) g/dL Albumin 2.2 L (3.5-5.2) g/dL Globulin 3.7 (1.3-4.6) g/dL Lipase 19 (13-60) U/L Discharge Plan Discharge Patient Disposition: Home Clinical Impression: Dizziness, Chronic diarrhea, Bilateral breast cancer Condition: Stable Prescriptions: No Action pantoprazole 40 mg tablet,delayed release (DR/EC) 40 mg PO QAM Qty: 90 RF: 3 ciprofloxacin HCl [Cipro] 500 mg tablet 500 mg PO BID 7 Days Qty: 14 RF: 0 metronidazole [Flagyl] 500 mg tablet 500 mg PO BID 7 Days Qty: 14 RF: 0 anastrozole 1 mg Tablet 1 mg PO DAILY RF: 0 Euthyrox 125 mcg tablet 125 mcg PO DAILY RF: 0 furosemide 40 mg tablet 40 mg PO DAILY PRN (Reason: swelling) RF: 0 potassium chloride 10 mEq tablet extended release 20 meq PO BID PRN (Reason: with lasix) RF: 0 gabapentin 300 mg capsule 300 mg PO BID RF: 0 Discharge Orders: Discharge ED (Routine); Ordered 05/01/21 Ordered By: Arsen Linn Referrals: Magalie Patino FNP [Primary Care Provider] - Discharge Diet: Usual diet Discharge Activity: Increase activity as tolerated Patient Instructions: Syncope (ED) Coding Level of Care Code ED Medical Reimbursement Manager for Chg Fwd Exam Comprehensive
--- NOTE | 2021-05-01 15:12 | PC.NURSE ---
Blood pressure : Left arm 88/64 Right arm 89/61 Right ankle 102/56
[2021-05-01] MEDS: ondansetron 2 mg/ML SDV 2 mL 4 MG IVP (15:35)
[2021-05-01] MEDS: sodium chloride 0.9% 1,000 ML 999 ML IV (15:35)
[2021-05-01 15:38] LABS: Basophils # 0.1 10^3/uL (0.0-0.1); Basophils % 1.6 %; Eosinophils # 0.2 10^3/uL (0.0-0.8); Eosinophils % 2.5 %; Hematocrit 40.2 % (37.0-47.0); Hemoglobin 12.6 g/dL (11.5-15.3); Lymphocytes # 0.9 10^3/uL (0.8-4.8); Lymphocytes % 12.3 %; Mean Corpuscular HGB Conc 31.3 g/dL (30.0-36.0); Mean Corpuscular Hemoglobin 34.5 pg (28.0-34.0); Mean Corpuscular Volume 110.1 fL (81-99); Mean Platelet Volume 10.6 fL (7.4-10.4); Monocytes # 0.8 10^3/uL (0.2-0.9); Monocytes % 11.4 %; Neutrophils # 4.97 10^3/uL (1.8-7.7); Neutrophils % 71.6 %; Nucleated Red Blood Cells % 0 %; Platelet Count 100 10^3/cmm (130-400); Red Blood Count 3.65 10^6/uL (4.1-5.3); White Blood Count 6.9 10^3/uL (4.0-10.0)
[2021-05-01 16:23] LABS: Alanine Aminotransferase 8 U/L (0-33); Albumin Level 2.2 g/dL (3.5-5.2); Alkaline Phosphatase 142 IU/L (35-105); Blood Urea Nitrogen 11 mg/dL (8-23); Carbon Dioxide 23 mmol/L (22-29); Chloride 102 mmol/L (98-107); Globulin 3.7 g/dL (1.3-4.6); Glomerular Filtration Rate 62.1 mL/min (90-130); Glucose 85 mg/dL (65-115); Lipase 19 U/L (13-60); Osmolality Calculated 279 mOsm/kg (285-295); Sodium 135 mmol/L (136-145); Total Bilirubin 0.6 mg/dL (0.15-1.2); Total Protein 5.9 g/dL (6.6-8.7)
[2021-05-01 16:30] LABS: Anion Gap 13.8 (5-19); Aspartate Amino Transferase 27 U/L (0-32); Potassium 3.8 mmol/L (3.5-5.1)
[2021-05-01 18:08] VITALS: BP 112/87; PULSE 72; RESP 18; O2SAT 94
[2021-05-01 18:34] VITALS: BP 112/87; PULSE 67; RESP 20; TEMP 36.6; O2SAT 94
== END 2021-05-01 18:38 | disposition home or self-care (01) ==
PROVIDERS: Emergency Provider Emergency Medicine; PCP Nurse Practitioner Family
DX: R42 Dizziness and giddiness (principal); K52.9 Noninfective gastroenteritis and colitis, unspecified; C50.912 Malignant neoplasm of unspecified site of left female breast; C50.911 Malignant neoplasm of unspecified site of right female breast; Z87.891 Personal history of nicotine dependence
CPT/HCPCS: 80053; 83690; 85025; 96361; 96374; 99284; J2405; J7030

== ENCOUNTER 2021-05-02 17:45 | Inpatient (IN) | payer MEDICARE, OTHER, SELFPAY ==
[2021-05-02] VITALS (16 sets, daily range): BP systolic 54–151; BP diastolic 37–70; PULSE 109–127; RESP 20–31; TEMP 36.4; O2SAT 30–96; BMI 25.3; BMI 27.0
--- NOTE | 2021-05-02 17:51 | XRR_ITS ---
PROCEDURE INFORMATION: Exam: XR Chest Exam date and time: 05/02/2021 5:51 PM Age: 71 years old Clinical indication: Cough; Additional info: Reduced breath sounds TECHNIQUE: Imaging protocol: XR of the chest. Views: 1 view. COMPARISON: CT chest abd pel w con* 05/31/2020 10:38 AM FINDINGS: Lungs: Unremarkable. No consolidation. Pleural spaces: Unremarkable. No pleural effusion. No pneumothorax. Heart/Mediastinum: Unremarkable. No cardiomegaly. Bones/joints: Unremarkable. A left central line is present extending to the SVC. XR/XR chest 1V portable [id number] IMPRESSION: No acute findings. Left central line in the SVC
--- NOTE | 2021-05-02 17:52 | ECG_ITS ---
[facility] Test Date: 2021-05-03 Pat Name: Bee Zheng Department: Room: ICU07 Gender: Female [employer]man: : 1950 Requested By: Driss Turpin Order Number: [id number] Reading MD: CHRISTIANE CRUZ Measurements Intervals [place] Rate: 106 P: 53 [place]: 165 QRS: 147 QRSD: 127 T: -38 QT: 359 QTc: 477 Interpretive Statements SINUS TACHYCARDIA WITH OCCASIONAL VENTRICULAR PREMATURE COMPLEXES POSSIBLE LEFT ATRIAL ENLARGEMENT [-0.1mV P WAVE IN V1/V2] MARKED RIGHT AXIS DEVIATION [QRS AXIS > 100] RIGHT BUNDLE BRANCH BLOCK [120+ ms QRS DURATION, UPRIGHT V1, 40+ ms S IN I/aVL/V4/V5/V6] SEPTAL MYOCARDIAL INFARCTION [40+ ms Q WAVE IN V1/V2], OF INDETERMINATE AGE MODERATE T-WAVE ABNORMALITY, CONSIDER INFERIOR ISCHEMIA [-0.1+ mV T WAVE IN II/aVF] Compared to ECG 05/02/2021 19:55:53 T-wave abnormality now present Possible ischemia now present Myocardial infarct finding still present Electronically Signed On 05-03-2021 14:27:19 CDT by CHRISTIANE CRUZ [id number]
[2021-05-02] MEDS: sodium chloride 0.9% 1,000 ML 999 ML IV ×2 (18:10→19:55)
[2021-05-02 18:24] LABS: ABG PCO2 26.3 mmHg (35-45); ABG PH Result 7.31 (7.35-7.45); Arterial Blood Gas Hematocrit 37.6 % (37-47); Base Excess ABG -11.4 mmol/L (-2.0-2.0); Blood Gas Allen Test Pos; Blood Gas Operator Identificat ED; Blood Gas Sample Site Radial, left; Blood Gas Sample Type Arterial; HCO3 ABG 13.2 mmol/L (22-26); HGB O2 Sat 93.9 % (95-100); Methemoglobin 0.8 % (0.4-1.5); Oxygen Device NRB; PO2 ABG 91.5 mmHg (80.0-100.0); Total Hemoglobin 12.3 g/dL (12-16)
[2021-05-02 18:31] LABS: Basophils # 0.1 10^3/uL (0.0-0.1); Basophils % 0.8 %; Eosinophils % 0.2 %; Hematocrit 40.1 % (37.0-47.0); Hemoglobin 12.5 g/dL (11.5-15.3); Lymphocytes # 1.4 10^3/uL (0.8-4.8); Lymphocytes % 16.4 %; Mean Corpuscular HGB Conc 31.2 g/dL (30.0-36.0); Mean Corpuscular Hemoglobin 34.3 pg (28.0-34.0); Mean Corpuscular Volume 110.2 fL (81-99); Mean Platelet Volume 10.4 fL (7.4-10.4); Monocytes # 0.7 10^3/uL (0.2-0.9); Monocytes % 8.4 %; Neutrophils # 6.07 10^3/uL (1.8-7.7); Neutrophils % 72.8 %; Nucleated Red Blood Cells % 0.2 %; Platelet Count 126 10^3/cmm (130-400); Red Blood Count 3.64 10^6/uL (4.1-5.3); Red Cell Distribution Width 16.4 % (12.1-15.1); White Blood Count 8.4 10^3/uL (4.0-10.0)
--- NOTE | 2021-05-02 19:01 | CTR_ITS ---
PROCEDURE INFORMATION: Exam: CTA Chest With Contrast Exam date and time: 05/02/2021 7:01 PM Age: 71 years old Clinical indication: Abdominal tenderness; Shortness of breath and tachypnea; Prior surgery; Surgery type: Mastectomy, hyst, hernia; Patient HX: HX. Breast cancer and uterine cancer. Currently on chemo pill; Additional info: Dyspnea/ tachy/ hypotension. Pe? Pna? TECHNIQUE: Imaging protocol: Computed tomographic angiography of the chest with contrast. 3D rendering (Not supervised by radiologist): MIP and/or 3D reconstructed images were created by the technologist. Radiation optimization: All CT scans at this facility use at least one of these dose optimization techniques: automated exposure control; mA and/or kV adjustment per patient size (includes targeted exams where dose is matched to clinical indication); or iterative reconstruction. Contrast material: VISI 320; Contrast volume: 95 ml; Contrast route: INTRAVENOUS (IV); COMPARISON: 1. CT angio chest PE protcl [id number] 04/09/2020 2:01 PM 2. CTA Chest-Pulmonary Emb [id number] 08/28/2019 10:59:39 AM RADIATION DOSE METRICS: Total DLP (mGy-cm): 1295.67 FINDINGS: Tubes, catheters and devices: There is infusion port catheter in place with its tip in the superior vena cava. Pulmonary arteries: There are large filling defects in bilateral lower lobe segmental branches in keeping with acute pulmonary embolism. There is marked dilatation of the main pulmonary artery segment consistent with pulmonary hypertension which is not significantly changed from the prior examinations. Aorta: There is no thoracic aortic aneurysm or dissection. Veins: There is reflux of contrast into the IVC and hepatic veins which suggest right heart dysfunction. Lungs: There are calcified granulomas in the right lung. Pleural spaces: There is a small right pleural effusion. Heart: There is a small pericardial effusion similar to previous. Lymph nodes: There are calcified hilar and mediastinal lymph nodes in keeping with old granulomatous disease. Bones/joints: Unremarkable. No acute fracture. Soft tissues: There is some scarring along the anterior chest wall on both sides likely related to prior radiation therapy. The more acute appearing radiation pneumonitis on 04/09/2020 has resolved. There are bilateral mastectomies. IMPRESSION: 1. Acute bilateral pulmonary emboli. 2. Severe right heart strain. 3. Chronic pulmonary hypertension not significantly changed from previous. 4. Small right pleural effusion. 5. Small pericardial effusion. 6. Old granulomatous disease. 7. No pulmonary metastasis are identified. COMMENTS: THIS REPORT CONTAINS FINDINGS THAT MAY BE CRITICAL TO PATIENT CARE. The findings were verbally communicated via telephone conference with ELIZA PROCTOR at 8:16 PM CDT on 05/02/2021. The findings were acknowledged and understood. PROCEDURE INFORMATION: Exam: CT Abdomen And Pelvis With Contrast Exam date and time: 05/02/2021 7:01 PM Age: 71 years old Clinical indication: Abdominal tenderness; Shortness of breath and tachypnea; Prior surgery; Surgery type: Mastectomy, hyst, hernia; Patient HX: HX. Breast cancer and uterine cancer. Currently on chemo pill; Additional info: Dyspnea/ tachy/ hypotension. Pe? Pna? TECHNIQUE: Imaging protocol: Computed tomography of the abdomen and pelvis with contrast. Radiation optimization: All CT scans at this facility use at least one of these dose optimization techniques: automated exposure control; mA and/or kV adjustment per patient size (includes targeted exams where dose is matched to clinical indication); or iterative reconstruction. Contrast material: VISI 320; Contrast volume: 95 ml; Contrast route: INTRAVENOUS (IV); COMPARISON: CT chest abd pel w con* 05/31/2020 10:38:13 AM RADIATION DOSE METRICS: Total DLP (mGy-cm): 1295.67 FINDINGS: Liver: There is a diffuse decrease in hepatic parenchymal density, consistent with moderate fatty infiltration. There is mild periportal edema of uncertain significance. Gallbladder and bile ducts: Multiple calcified gallstones are present. There is diffuse nonspecific gallbladder wall thickening. Gallbladder wall thickening is increased compared with 05/31/2020. There is no biliary tract dilatation. Pancreas: The pancreas is normal. Spleen: The spleen demonstrates punctate calcifications, consistent with remote granulomatous organism exposure. Adrenal glands: The adrenal glands are normal. Kidneys and ureters: There is a right renal collecting system calcification. The left kidney is normal. There is no evidence of hydronephrosis. There is no stone along the course of either ureter. Stomach and bowel: There is mild diffuse edema of the colon wall which is nonspecific. No diverticulitis is identified. Appendix: A normal appendix is identified. Intraperitoneal space: There is a small amount of free intraperitoneal fluid present. Vasculature: The aorta demonstrates moderate atherosclerotic calcification. There is no evidence of an abdominal aortic aneurysm. Lymph nodes: There is no evidence of lymphadenopathy. Urinary bladder: Unremarkable as visualized. Reproductive: There has been a hysterectomy. There is a 3 cm sized cyst in the right side of the pelvis there is a right lateral chest wall which could represent adnexal cyst not significantly changed from previous. Bones/joints: The lumbar spine demonstrates mild degenerative changes at multiple levels. Soft tissues: Unremarkable. CT/CT angio chest w abd pel w con IMPRESSION: 1. Fatty liver. 2. Cholelithiasis 3. Moderate diffuse gallbladder wall thickening increased from previous. 4. Ascites 5. Mild periportal edema of uncertain significance. 6. Question of mild edema of the colonic wall of uncertain significance. Radiation Dose CTDIVOL = (mGy): DLP = 1295.67~1295.67 (mGy-cm)
[2021-05-02 19:02] LABS: Troponin(5th) Baseline 104 ng/L (0-10)
[2021-05-02 19:03] LABS: Alanine Aminotransferase 11 U/L (0-33); Albumin Level 2.2 g/dL (3.5-5.2); Alkaline Phosphatase 147 IU/L (35-105); Aspartate Amino Transferase 42 U/L (0-32); Blood Urea Nitrogen 15 mg/dL (8-23); Calcium 7.8 mg/dL (8.5-10.5); Carbon Dioxide 16 mmol/L (22-29); Chloride 100 mmol/L (98-107); Globulin 3.4 g/dL (1.3-4.6); Glucose 195 mg/dL (65-115); Osmolality Calculated 286 mOsm/kg (285-295); Sodium 135 mmol/L (136-145); Total Bilirubin 0.9 mg/dL (0.15-1.2); Total Protein 5.6 g/dL (6.6-8.7)
[2021-05-02] MEDS: piperacillin-tazobactam 3.375 GM in sodium chloride 0.9% (plus) 50 ML IV (19:28)
[2021-05-02 19:35] LABS: Blood Urine Neg (Negative); Glucose Urine UA Norm (Normal); Ketones Urine Negative (Negative); Protein Urine 1+ (Negative); Urine Appearance Hazy (CLEAR); Urine Color Amber (Yellow); pH Urine 5 (5-7)
[2021-05-02 19:36] LABS: Add Urine Culture? No; Add Urine Microscopic? YES; Bacteria Urine 3+ /hpf; Bilirubin Urine 1+ (Negative); Leukocyte Esterase Urine 1+ (Negative); Nitrate Urine Positive (Negative); Squamous Epithelial Cell Urine 0-4 /hpf (0-5); Urobilinogen Urine 1 mg/dL (Negative); WBC Urine 0-4 /hpf (0-5)
[2021-05-02] MEDS: iodixanol 320 mg/mL 100mL Btl IV (19:45)
[2021-05-02 19:50] LABS: NT Pro B Type Natriuretic Pept > 7000 pg/mL (0-125)
--- NOTE | 2021-05-02 19:51 | PC.NURSE ---
i assumed care of this patient at 1900 05/02/21 from BK Cummings
--- NOTE | 2021-05-02 19:52 | ECG_ITS ---
[facility] Test Date: 2021-05-02 Pat Name: Bee Zheng Department: Room: Gender: Female [employer] Machine: : 1950 Requested By: Driss Turpin Order Number: [id number] Roxanne MD: Oralia Berumen M.D. Measurements Intervals [place] Rate: 116 P: 65 [place]: 123 QRS: 164 QRSD: 145 T: -18 QT: 361 QTc: 502 Interpretive Statements SINUS TACHYCARDIA WITH OCCASIONAL VENTRICULAR PREMATURE COMPLEXES MARKED RIGHT AXIS DEVIATION [QRS AXIS > 100] RIGHT BUNDLE BRANCH BLOCK [120+ ms QRS DURATION, UPRIGHT V1, 40+ ms S IN I/aVL/V4/V5/V6] SEPTAL MYOCARDIAL INFARCTION [40+ ms Q WAVE IN V1/V2], OF INDETERMINATE AGE Compared to ECG 08/29/2019 13:51:49 Ventricular premature complex(es) now present Myocardial infarct finding now present Electronically Signed On 05-03-2021 6:32:04 CDT by Oralia Berumen M.D. [id number]
--- NOTE | 2021-05-02 20:08 | P.CONIM_ITS ---
Providers/Reason For Consult Consulting Physician/Specialty*: Cardiology Reason for Consult*: Abnormal EKG, abnormal cardiac markers Primary Care Provider: FABY Howard History of Present Illness History of Present Illness Bee Zheng is a 71 year old female past medical history significant for metastatic invasive ductal carcinoma of the breast chronic diarrhea status post chemotherapy and radiation presented with chest pressure tachycardic and hypotensive. She was in acute renal failure most likely prerenal type. She was thought to be dehydrated given bolus of IV fluid. Initial cardiac markers at the baseline of 106 it is the reason we have been asked to see the patient. Patient denies any prior history of heart problem she gives no history of some chest pressure but not chest pain. CT scan with the PE protocol was consistent with bilateral pulmonary embolism. After IV fluids she is feeling much better currently denies chest pain. Twelve-lead EKG is consistent with a right bundle branch block otherwise no significant ST-T ST changes. Review of Systems Musc: Denies: joint warmth Meds/Allergies Home Medications and Allergies Home Medications Medication Instructions Recorded Confirmed Last Taken Type furosemide 40 mg PO DAILY PRN 11/16/19 05/01/21 09/26/20 History gabapentin 300 mg PO BID 11/16/19 05/01/21 05/01/21 History potassium chloride 20 meq PO BID PRN 11/16/19 05/01/21 09/26/20 History anastrozole 1 mg PO DAILY 09/25/20 05/01/21 05/01/21 History pantoprazole 40 mg tablet,delayed 40 mg PO QAM #90 tab 04/23/21 05/01/21 05/01/21 Rx release ciprofloxacin HCl 500 mg tablet 500 mg PO BID 7 Days #14 tab 04/24/21 05/01/21 05/01/21 Rx metronidazole 500 mg tablet 500 mg PO BID 7 Days #14 tab 04/24/21 05/01/21 05/01/21 Rx levothyroxine [Euthyrox] 125 mcg PO DAILY 05/01/21 05/01/21 05/01/21 01:00 History Allergies Allergy/AdvReac Type Severity Reaction Status Date / Time No Known Allergies Allergy Verified 05/02/21 17:57 PFSH Acute PFSH: Surgical History Status post bilateral mastectomy Family History Other Cancer Social History Smoking and tobacco status: former smoker Alcohol intake: current Vitals/I&O/Wt Last Vital Signs Pulse 115 H 05/02/21 20:03 Resp 24 H 05/02/21 20:03 BP 54/37 05/02/21 20:03 Pulse Ox 92 05/02/21 20:03 05/02/21 05/02/21 05/02/21 06:59 14:59 22:59 Intake Total 1050 / 1050 Balance 1050 / 1050 Weight last 48 hrs Weight 157 lb Physical Exam Narrative: EXAM NARRATIVE: GENERAL: Patient is alert, awake and oriented x3. Mildly distressed NECK: No jugular vein distension. HEENT: No cyanosis. No icterus. No pallor. HEART: Regular S1 and S2. No murmur, rub or gallop. LUNGS: Decreased breath bilaterally. ABDOMEN: Soft, nontender and nondistended. Positive bowel sounds. No guarding, rebound or tenderness. CENTRAL NERVOUS SYSTEM: Grossly nonfocal. EXTREMITIES: Lower extremities without edema bilaterally. Data Micro: Micro: Microbiology 05/02/21 18:52 Blood Culture - Pr eliminary Blood SPECIMEN [facility] 05/02/21 18:20 Blood Culture - Pr eliminary Blood SPECIMEN [facility] A&P Assessment and plan (1) Chest pressure: Most likely secondary to pulmonary embolism. Troponin I06 generation 5 co uld be due to right ventricle strain, advised echocardiogram and starting heparin as per PE protocol. Aspirin statin advised. Most likely this is noncardiac type II cardiac markers bump however we will continue to monitor her. Currently she is chest pain-free. Further plan will be advised as per progress of the patient. Status: Acute (2) Pulmonary embolism: Patient is being started on IV heparin. Echocardiogram to assess RV strain depending upon her criteria for TPA or embolectomy per the plan will be advised as per medicine and ER Status: Acute Qualifiers: Pulmonary embolism type: unspecified Acute cor pulmonale presence: unspecified Chronicity: acute Qualified Code(s): I26.99 - Other pulmonary embolism without acute cor pulmonale (3) Hypotension: Most likely due to dehydration chronic diarrhea and volume depletion. Continue IV fluid and pressor Status: Acute Qualifiers: Hypotension type: unspecified hypotension type Qualified Code(s): I95.9 - Hypotension, unspecified Consult Attestations Medical Necessity Statement: Patient require continuation hospitalization for above defined care. Coding Level of Care Code New Pt Acute Student Assistance Counselor for [facility] Fwd Patient Type New History Detailed Exam Detailed Medical Decision Making Moderate Complexity Diagnoses Chest pressure R07.89 Pulmonary embolism I26.99 Pulmonary embolism type: unspecified Acute cor pulmonale presence: unspecified Chronicity: acute Hypotension I95.9 Hypotension type: unspecified hypotension type
[2021-05-02] MEDS: vancomycin 1,000 MG in sodium chloride 0.9% 250 ML 250 MG IV (20:13)
--- NOTE | 2021-05-02 20:31 | W.ED.CHESTPA ---
HPI - Chest Pain General: Chief Complaint: Chest Pain Stated Complaint: WEAKNESS/ CANCER PT Time Seen by Provider: 05/02/21 17:51 History of Present Illness: HPI narrative: The patient is a 71-year-old female with past medical history breast cancer who has gone through radiation and chemotherapy and is on anastrozole. She was seen here yesterday for hypotension and given a liter of fluids and discharge. Today she comes in severely hypotensive and altered. She complains of chest pain. Patient's daughter says she runs hypotensive with systolic in the 90s and that hypotension is normal for her. Says she has been feeling heaviness in her chest that started earlier today. Heart rate on arrival was 140 sinus tachycardia. Review of Systems General: Reports: ROS unobtainable due to mental status (Initial alteration of mental status did not answer all questions appropriat) PFSH ED PFSH: Medical History (Updated 05/02/21 @ 22:53 by Cyndi Chicas MD) Bilateral breast cancer 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 Is with Dr. Rascon. Right breast was grade 1 stage IIa (ypT1c, YPN2A, M0), ER/[place] positive and HER-2/nu negative. Left breast was grade 3 stage at least 1B (ypT2, YPN2A, M0), ER/[place] positive and HER-2/bernadine positive. Chemotherapy stopped after 4 cycles due to toxicity. Had modified radical mastectomy bilaterally and underwent prophylactic chest wall radiation. Chronic diarrhea Drug-induced peripheral neuropathy Chemotherapy History of blood transfusion History of DVT (deep vein thrombosis) Left lower extremity, approximately 10 years ago, preceded first cancer diagnosis History of endometrial cancer Status post hysterectomy and bilateral salpingo-oophorectomy with postoperative HDR implant radiation in 2014 Hypothyroidism Port-A-Cath in place Post-radiation pneumonitis Surgical History History of colonoscopy (~09/2020) History of hernia repair History of hysterectomy Status post bilateral mastectomy Family History (Updated 05/02/21 @ 22:50 by Cyndi Chicas MD) Mother Cancer Denies family history of Clotting disorder Social History (Updated 05/02/21 @ 22:51 by Cyndi Chicas MD) Smoking and tobacco status: former smoker Alcohol intake: former Former alcohol use details: Previously drank beer regularly but none in about a year Substance/Drug Use: never Lives independently: Yes Household members: none Physical Exam Narrative: EXAM NARRATIVE: Acutely altered mental status. Able to answer some questions but unclear if she is answering them appropriately. General pallor. After a liter of fluids her pallor improved and she was alert and oriented x3. HENMT: COMMON NORMALS: normocephalic, external ears normal and Normal external nose present HEAD & SCALP: normal to inspection and normocephalic NOSE: Normal external nose present EXTERNAL EAR: Yes external ears normal MOUTH: Normal oral and palatal mucosa present THROAT: posterior oropharynx normal Eye: COMMON NORMALS: Equal, round and reactive pupils present and EOMs intact bilaterally GENERAL EYE: appearance normal, both eyes and all related structures PUPIL: Yes Equal, round and reactive pupils present Neck/C-Spine: COMMON NORMALS: full ROM, no lymphadenopathy, no meningeal signs and no JVD GENERAL: Yes normal visual inspection Lymph: LYMPHATIC: no lymphadenopathy noted Chest: COMMONS NORMALS: normal inspection of the chest and normal palpation of entire chest wall Cardio: COMMON NORMALS: no JVD GI: COMMON NORMALS: Normal to inspection, nondistended, normoactive bowel sounds present, Soft to palpation, non-tender and no masses INSPECTION: Yes normal to inspection PALPATION: Yes Soft to palpation : COMMON NORMALS: Yes no CVA tenderness BLADDER/KIDNEY EXAM: Yes no CVA tenderness Back/Pelvis: COMMON NORMALS: no CVA tenderness, thoracic and lumbar spine normal to inspection, no thoracic nor lumbar tenderness and thoraco-lumbar ROM normal Extremity: COMMON NORMALS: normal to inspection, full ROM, capillary refill normal, no joint enlargement and no pedal edema GENERAL: Yes normal exam except as noted Neuro: MENINGEAL SIGNS: Yes no meningeal signs Course Vital Signs: Vital signs: Vital Signs Pulse Rate 112 H 05/02/21 23:04 Respiratory Rate 24 H 05/02/21 23:04 Blood Pressure 151/53 05/02/21 23:04 Pulse Oximetry 94 05/02/21 23:04 MDM - Chest Pain MDM Narrative: Medical decision making narrative: The patient initially came to the ED hypotensive and altered requiring nonrebreather to saturate in the upper 90s. Her family member reports she has cancer of the breast and has been through chemo and radiation with resultant chronic severe diarrhea. Also notes that she has not taken much in in the past 2 to 3 days and visited the ER yesterday for IV fluids and was discharged. Also noted she is chronically hypertensive with systolic in the 90s being her baseline. She was given a liter of IV fluids along with beginning blood work which greatly improved her color and mental status as well as blood pressure to 120s over 80s. She was now able to talk to me and told me that she had heaviness in her chest in the middle. Troponin came back elevated over 100 which was concerning and got Dr. Fernando involved who recommended no acute intervention. She went to CT and after arrival she was again hypotensive severely. She was started on Levophed. CT report showed bilateral PEs with severe right heart strain. She is significantly hypotensive as well which qualifies for TPA administration. She was started on heparin and TPA was also ordered as well as I discussed with Dr. Markham pulmonology who came into to see the patient and administer the TPA himself. Dr. Chicas was also involved in this patient's care and helped children counselor her the risks and benefits of her condition, admitting here versus transferring. I also did a lot of discussing the risks, benefits, and alternatives of all procedures and transfer with the patient and her family. I initially called [facility] and got a helicopter on standby as I thought she was clinically significant enough to need transfer if stable to [facility]. I discussed the risks of TPA with her bleeding being the most clinically significant 1 and she understood and accept the risks of that. After administration of 50 mg her blood pressure began to improve as well the patient started to feel somewhat better. Helicopter arrived and I discussed with the patient transfer. Dr. Markham felt we could care for the patient here and we do have an ICU bed available. Discussed that with the patient and her family that if all goes well we could treat her here just fine but if there is a complication such as worsening PE burden or bleed she would be better at [facility]. She understands and accepts the risks of this including hemorrhage and and wishes to stay here and be admitted. Her blood pressure continued to be stabilized and her condition continued to improve. Dr. Chicas accepted to the ICU. Patient is in stable condition and pending admission. Lab Data: Labs: Lab Results 05/02/21 05/02/21 05/02/21 Range/Units 18:14 18:20 18:20 WBC 8.4 (4.0-10.0) 10^3/ uL RBC 3.64 L (4.1-5.3) 10^6/u L Hgb 12.5 (11.5-15.3) g/dL Hct 40.1 (37.0-47.0) % MCV 110.2 H (81-99) fL MCH 34.3 H (28.0-34.0) pg MCHC 31.2 (30.0-36.0) g/dL RDW 16.4 H (12.1-15.1) % Plt Count 126 L (130-400) 10^3/c mm MPV 10.4 (7.4-10.4) fL Neut % (Auto) 72.8 % Lymph % (Auto) 16.4 % [place] % (Auto) 8.4 % Eos % (Auto) 0.2 % Baso % (Auto) 0.8 % Neut # (Auto) 6.07 (1.8-7.7) 10^3/u L Lymph # (Auto) 1.4 (0.8-4.8) 10^3/u L [place] # (Auto) 0.7 (0.2-0.9) 10^3/u L Eos # (Auto) 0.0 (0.0-0.8) 10^3/u L Baso # (Auto) 0.1 (0.0-0.1) 10^3/u L Nucleated RBC % (a uto) 0.2 % Nucleated RBCs # 0.0 /100WBC PT 16.50 H (12.1-14.9) SECO NDS INR 1.30 H (0.8-1.2) Specimen Type Arterial Sample Site Radial, left ABG pH 7.31 L (7.35-7.45) ABG pCO2 26.3 L (35-45) mmHg ABG pO2 91.5 (80.0-100.0) mmH g ABG HCO3 13.2 L (22-26) mmol/L ABG Base Excess -11.4 L (-2.0-2.0) mmol/ L Stevenson Test Pos Hematocrit 37.6 (37-47) % Hgb O2 Saturation 93.9 L (95-100) % Carboxyhemoglobin 1.0 (0.4-20.1) %THgb Methemoglobin 0.8 (0.4-1.5) % Total Hemoglobin 12.3 (12-16) g/dL O2 Delivery Device Nrb O2 Liters/Min 10.0 % Architectural Drafter ID Ed Sodium (136-145) mmol/L Potassium (3.5-5.1) mmol/L Chloride (98-107) mmol/L Carbon Dioxide (22-29) mmol/L Anion Gap (5-19) BUN (8-23) mg/dL Creatinine (0.5-0.9) mg/dL GFR Calculation (90-130) mL/min Glucose (65-115) mg/dL Calculated Osmolal ity (285-295) mOsm/k g Lactic Acid (0.5-2.2) mmol/L Calcium (8.5-10.5) mg/dL Total Bilirubin (0.15-1.2) mg/dL AST (0-32) U/L ALT (0-33) U/L Alkaline Phosphata se (35-105) IU/L Troponin T Baselin e (0-10) ng/L Troponin T 120 Min [place] (0-10) ng/L Delta Troponin T (0-10) ABS# NT-Pro-B Natriuret Pep (0-125) pg/mL Total Protein (6.6-8.7) g/dL Albumin (3.5-5.2) g/dL Globulin (1.3-4.6) g/dL Procalcitonin (0-0.5) ng/mL TSH (0.27-4.20) uIU/ mL Urine Color (Yellow) Urine Appearance (CLEAR) Urine pH (5-7) Ur Specific Gravit y (1.005-1.030) Urine Protein (Negative) Urine Glucose (UA) (Normal) Urine Ketones (Negative) Urine Blood (Negative) Urine Nitrate (Negative) Urine Bilirubin (Negative) Urine Urobilinogen (Negative) mg/dL Ur Leukocyte Paulina ase (Negative) Urine RBC (0-2) /hpf Urine WBC (0-5) /hpf Ur Squamous Epith Cells (0-5) /hpf Amorphous Sediment Urine Bacteria (NONE) /hpf 05/02/21 05/02/21 05/02/21 Range/Units 18:20 18:20 18:44 WBC (4.0-10.0) 10^3/ uL RBC (4.1-5.3) 10^6/u L Hgb (11.5-15.3) g/dL Hct (37.0-47.0) % MCV (81-99) fL MCH (28.0-34.0) pg MCHC (30.0-36.0) g/dL RDW (12.1-15.1) % Plt Count (130-400) 10^3/c mm MPV (7.4-10.4) fL Neut % (Auto) % Lymph % (Auto) % [place] % (Auto) % Eos % (Auto) % Baso % (Auto) % Neut # (Auto) (1.8-7.7) 10^3/u L Lymph # (Auto) (0.8-4.8) 10^3/u L [place] # (Auto) (0.2-0.9) 10^3/u L Eos # (Auto) (0.0-0.8) 10^3/u L Baso # (Auto) (0.0-0.1) 10^3/u L Nucleated RBC % (a uto) % Nucleated RBCs # /100WBC PT (12.1-14.9) SECO NDS INR (0.8-1.2) Specimen Type Sample Site ABG pH (7.35-7.45) ABG pCO2 (35-45) mmHg ABG pO2 (80.0-100.0) mmH g ABG HCO3 (22-26) mmol/L ABG Base Excess (-2.0-2.0) mmol/ L Stevenson Test Hematocrit (37-47) % Hgb O2 Saturation (95-100) % Carboxyhemoglobin (0.4-20.1) %THgb Methemoglobin (0.4-1.5) % Total Hemoglobin (12-16) g/dL O2 Delivery Device O2 Liters/Min % Architectural Drafter ID Sodium 135 L (136-145) mmol/L Potassium 4.0 (3.5-5.1) mmol/L Chloride 100 (98-107) mmol/L Carbon Dioxide 16 L (22-29) mmol/L Anion Gap 23.0 H (5-19) BUN 15 (8-23) mg/dL Creatinine 1.6 H (0.5-0.9) mg/dL GFR Calculation 32.0 L (90-130) mL/min Glucose 195 H (65-115) mg/dL Calculated Osmolal ity 286 (285-295) mOsm/k g Lactic Acid (0.5-2.2) mmol/L Calcium 7.8 L (8.5-10.5) mg/dL Total Bilirubin 0.9 (0.15-1.2) mg/dL AST 42 H (0-32) U/L ALT 11 (0-33) U/L Alkaline Phosphata se 147 H (35-105) IU/L Troponin T Baselin e 104 H* (0-10) ng/L Troponin T 120 Min [place] (0-10) ng/L Delta Troponin T (0-10) ABS# NT-Pro-B Natriuret Pep > 7000 H (0-125) pg/mL Total Protein 5.6 L (6.6-8.7) g/dL Albumin 2.2 L (3.5-5.2) g/dL Globulin 3.4 (1.3-4.6) g/dL Procalcitonin (0-0.5) ng/mL TSH 1.40 (0.27-4.20) uIU/ mL Urine Color Rena (Yellow) Urine Appearance Hazy A (CLEAR) Urine pH 5 (5-7) Ur Specific Gravit y 1.020 (1.005-1.030) Urine Protein 1+ H (Negative) Urine Glucose (UA) Norm (Normal) Urine Ketones Negative (Negative) Urine Blood Neg (Negative) Urine Nitrate Positive H (Negative) Urine Bilirubin 1+ H (Negative) Urine Urobilinogen 1 H (Negative) mg/dL Ur Leukocyte Paulina ase 1+ H (Negative) Urine RBC None (0-2) /hpf Urine WBC 0-4 H (0-5) /hpf Ur Squamous Epith Cells 0-4 H (0-5) /hpf Amorphous Sediment Not Reportable Urine Bacteria 3+ H (NONE) /hpf 05/02/21 05/02/21 05/02/21 Range/Units 20:30 20:30 20:30 WBC (4.0-10.0) 10^3/ uL RBC (4.1-5.3) 10^6/u L Hgb (11.5-15.3) g/dL Hct (37.0-47.0) % MCV (81-99) fL MCH (28.0-34.0) pg MCHC (30.0-36.0) g/dL RDW (12.1-15.1) % Plt Count (130-400) 10^3/c mm MPV (7.4-10.4) fL Neut % (Auto) % Lymph % (Auto) % [place] % (Auto) % Eos % (Auto) % Baso % (Auto) % Neut # (Auto) (1.8-7.7) 10^3/u L Lymph # (Auto) (0.8-4.8) 10^3/u L [place] # (Auto) (0.2-0.9) 10^3/u L Eos # (Auto) (0.0-0.8) 10^3/u L Baso # (Auto) (0.0-0.1) 10^3/u L Nucleated RBC % (a uto) % Nucleated RBCs # /100WBC PT (12.1-14.9) SECO NDS INR (0.8-1.2) Specimen Type Sample Site ABG pH (7.35-7.45) ABG pCO2 (35-45) mmHg ABG pO2 (80.0-100.0) mmH g ABG HCO3 (22-26) mmol/L ABG Base Excess (-2.0-2.0) mmol/ L Stevenson Test Hematocrit (37-47) % Hgb O2 Saturation (95-100) % Carboxyhemoglobin (0.4-20.1) %THgb Methemoglobin (0.4-1.5) % Total Hemoglobin (12-16) g/dL O2 Delivery Device O2 Liters/Min % Architectural Drafter ID Sodium (136-145) mmol/L Potassium (3.5-5.1) mmol/L Chloride (98-107) mmol/L Carbon Dioxide (22-29) mmol/L Anion Gap (5-19) BUN (8-23) mg/dL Creatinine (0.5-0.9) mg/dL GFR Calculation (90-130) mL/min Glucose (65-115) mg/dL Calculated Osmolal ity (285-295) mOsm/k g Lactic Acid 6.1 H* (0.5-2.2) mmol/L Calcium (8.5-10.5) mg/dL Total Bilirubin (0.15-1.2) mg/dL AST (0-32) U/L ALT (0-33) U/L Alkaline Phosphata se (35-105) IU/L Troponin T Baselin e (0-10) ng/L Troponin T 120 Min [place] 119.9 H (0-10) ng/L Delta Troponin T 15.9 H* (0-10) ABS# NT-Pro-B Natriuret Pep (0-125) pg/mL Total Protein (6.6-8.7) g/dL Albumin (3.5-5.2) g/dL Globulin (1.3-4.6) g/dL Procalcitonin 0.24 (0-0.5) ng/mL TSH (0.27-4.20) uIU/ mL Urine Color (Yellow) Urine Appearance (CLEAR) Urine pH (5-7) Ur Specific Gravit y (1.005-1.030) Urine Protein (Negative) Urine Glucose (UA) (Normal) Urine Ketones (Negative) Urine Blood (Negative) Urine Nitrate (Negative) Urine Bilirubin (Negative) Urine Urobilinogen (Negative) mg/dL Ur Leukocyte Paulina ase (Negative) Urine RBC (0-2) /hpf Urine WBC (0-5) /hpf Ur Squamous Epith Cells (0-5) /hpf Amorphous Sediment Urine Bacteria (NONE) /hpf 05/02/21 Range/Units 20:30 WBC (4.0-10.0) 10^3/ uL RBC (4.1-5.3) 10^6/u L Hgb (11.5-15.3) g/dL Hct (37.0-47.0) % MCV (81-99) fL MCH (28.0-34.0) pg MCHC (30.0-36.0) g/dL RDW (12.1-15.1) % Plt Count 97 L (130-400) 10^3/c mm MPV (7.4-10.4) fL Neut % (Auto) % Lymph % (Auto) % [place] % (Auto) % Eos % (Auto) % Baso % (Auto) % Neut # (Auto) (1.8-7.7) 10^3/u L Lymph # (Auto) (0.8-4.8) 10^3/u L [place] # (Auto) (0.2-0.9) 10^3/u L Eos # (Auto) (0.0-0.8) 10^3/u L Baso # (Auto) (0.0-0.1) 10^3/u L Nucleated RBC % (a uto) % Nucleated RBCs # /100WBC PT (12.1-14.9) SECO NDS INR (0.8-1.2) Specimen Type Sample Site ABG pH (7.35-7.45) ABG pCO2 (35-45) mmHg ABG pO2 (80.0-100.0) mmH g ABG HCO3 (22-26) mmol/L ABG Base Excess (-2.0-2.0) mmol/ L Stevenson Test Hematocrit (37-47) % Hgb O2 Saturation (95-100) % Carboxyhemoglobin (0.4-20.1) %THgb Methemoglobin (0.4-1.5) % Total Hemoglobin (12-16) g/dL O2 Delivery Device O2 Liters/Min % Architectural Drafter ID Sodium (136-145) mmol/L Potassium (3.5-5.1) mmol/L Chloride (98-107) mmol/L Carbon Dioxide (22-29) mmol/L Anion Gap (5-19) BUN (8-23) mg/dL Creatinine (0.5-0.9) mg/dL GFR Calculation (90-130) mL/min Glucose (65-115) mg/dL Calculated Osmolal ity (285-295) mOsm/k g Lactic Acid (0.5-2.2) mmol/L Calcium (8.5-10.5) mg/dL Total Bilirubin (0.15-1.2) mg/dL AST (0-32) U/L ALT (0-33) U/L Alkaline Phosphata se (35-105) IU/L Troponin T Baselin e (0-10) ng/L Troponin T 120 Min [place] (0-10) ng/L Delta Troponin T (0-10) ABS# NT-Pro-B Natriuret Pep (0-125) pg/mL Total Protein (6.6-8.7) g/dL Albumin (3.5-5.2) g/dL Globulin (1.3-4.6) g/dL Procalcitonin (0-0.5) ng/mL TSH (0.27-4.20) uIU/ mL Urine Color (Yellow) Urine Appearance (CLEAR) Urine pH (5-7) Ur Specific Gravit y (1.005-1.030) Urine Protein (Negative) Urine Glucose (UA) (Normal) Urine Ketones (Negative) Urine Blood (Negative) Urine Nitrate (Negative) Urine Bilirubin (Negative) Urine Urobilinogen (Negative) mg/dL Ur Leukocyte Paulina ase (Negative) Urine RBC (0-2) /hpf Urine WBC (0-5) /hpf Ur Squamous Epith Cells (0-5) /hpf Amorphous Sediment Urine Bacteria (NONE) /hpf Critical Care Time Critical Care Time: Critical Care Time: Yes Total Critical Care Time: 120 Attestation: The patient has bilateral PEs with significant severe right heart strain requiring oxygen. She was given multiple fluid boluses, pressors, heparin, and TPA. Discussion with multiple specialists, cardiology, pulmonology, hospitalist and eventually admitted to the ICU. She has significant hypotension as well and there is a clinically significant likelihood that she was going to pass away if not treated immediately Discharge Plan Discharge Patient Disposition: Admitted As Inpatient Admit Provider: Cyndi Chicas Coding Level of Care Code ED Boilermaking Supervisor for g Fwd Exam Comprehensive
[2021-05-02 20:47] LABS: Platelet Count 97 10^3/cmm (130-400)
--- NOTE | 2021-05-02 20:57 | PC.NURSE ---
LEVOPHED TITRATED BY DR BARROSO
--- NOTE | 2021-05-02 20:58 | PC.NURSE ---
LEVOPHED TITRATED BY DR BARROSO TO 18 MCG/MIN
[2021-05-02 21:09] LABS: Troponin 5 2HR 119.9 ng/L (0-10)
[2021-05-02 21:10] LABS: Lactic Sepsis W/Reflex 6.1 mmol/L (0.5-2.2); Troponin 5 2HR Delta 15.9 ABS# (0-10)
--- NOTE | 2021-05-02 21:16 | P.HP_ITS ---
Providers/Chief Complaint Admitting Physician: Cyndi Chicas MD Primary Care Provider: FABY Howard Chief Complaint: WEAKNESS/ CANCER PT History of Present Illness Bee Zheng is a 71 year old female who presented to the emergency room with chest pressure. On arrival she was tachycardic. Initial blood pressure was 120s but subsequently dropped significantly. She was hypoxic requiring oxygen therapy. Work-up was ensued. She received a couple liters of fluid. EKG show ed nonspecific changes but no ST elevation. Initial troponin was 100. BNP was greater than 7000. CTA of the chest was done and ended up showing bilateral PE with severe right heart strain. She continued to be tachycardic and hypotensive despite fluids. Lactic acid was elevated. She was requiring oxygen therapy. Ultimately decision was made, after extensive discussion with patient and her da ughter, to administer TPA. Cardiology and pulmonology had seen the patient in the emergency room. She required initiation of pressors. She does have a history of breast cancer and is on anastrozole. About 10 years ago she had a blood clot in her right lower extremity. This preceded her initial cancer diagnosis. She had been in the emergency room the evening before feeling weak and dizzy and with low blood pressures. She received some fluids, improved and opted to go home. She has chronic diarrhea. She just completed a course of Cipro and Flagyl for this. Beyond medical issues related to breast cancer, has hypothyroidism. History is obtained from combination of patient and her daug hter. Patient has had waxing mentation in the emergency room. She is being admitted to the ICU in improved but continued critical condition. In addition to TPA she has received Lovenox. Current Levophed is at 20 mics. Received I believe 2-1/2 L of saline. Review of Systems Const: Denies: fever(s) or chills Eyes: Denies: change in vision ENMT: Denies: nasal congestion or epistaxis Card: Reports: chest pain, palpitations, edema and lightheadedness; Denies: syncope Resp: Reports: dyspnea and pain on inspiration; Denies: productive cough, non-productive cough or hemoptysis GI: Reports: abdominal pain, nausea, vomiting, diarrhea (not worse than baseline) and other (Occasional blood with wiping only); Denies: constipation, hematochezia or melena : Denies: difficulty voiding or hematuria Musc: Reports: muscle cramps, muscle weakness and other (Generalized aches and pains, nothing acute, denies calf pain) Skin/Breast: Denies: rash or sores Neuro: Reports: headache(s), numbness in extremities (Along with pain due to neuropathy) and weakness in extremities (General rather than focal); Denies: frequent falls Psych: Denies: anxiety or depression Joel/Lymph: Denies: easy bruising or easy bleeding Medications/Allergies Home Medications Medication Instructions Recorded Confirmed Last Taken Type furosemide 40 mg PO DAILY PRN 11/16/19 05/01/21 09/26/20 History gabapentin 300 mg PO BID 11/16/19 05/01/21 05/01/21 History potassium chloride 20 meq PO BID PRN 11/16/19 05/01/21 09/26/20 History anastrozole 1 mg PO DAILY 09/25/20 05/01/21 05/01/21 History pantoprazole 40 mg tablet,delayed 40 mg PO QAM #90 tab 04/23/21 05/01/21 05/01/21 Rx release ciprofloxacin HCl 500 mg tablet 500 mg PO BID 7 Days #14 tab 04/24/21 05/01/21 05/01/21 Rx metronidazole 500 mg tablet 500 mg PO BID 7 Days #14 tab 04/24/21 05/01/21 05/01/21 Rx levothyroxine [Euthyrox] 125 mcg PO DAILY 05/01/21 05/01/21 05/01/21 01:00 History Allergies Allergy/AdvReac Type Severity Reaction Status Date / Time No Known Allergies Allergy Verified 05/02/21 17:57 PFSH Acute PFSH: Medical History (Updated 05/02/21 @ 22:53 by Cyndi Chicas MD) Bilateral breast cancer 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 Is with Dr. Rascon. Right breast was grade 1 stage IIa (ypT1c, YPN2A, M0), ER/MT positive and HER-2/nu negative. Left breast was grade 3 stage at least 1B (ypT2, YPN2A, M0), ER/MT positive and HER-2/bernadine positive. Chemotherapy stopped after 4 cycles due to toxicity. Had modified radical mastectomy bilaterally and underwent prophylactic chest wall radiation. Chronic diarrhea Drug-induced peripheral neuropathy Chemotherapy History of blood transfusion History of DVT (deep vein thrombosis) Left lower extremity, approximately 10 years ago, preceded first cancer diagnosis History of endometrial cancer Status post hysterectomy and bilateral salpingo-oophorectomy with postoperative HDR implant radiation in 2014 Hypothyroidism Port-A-Cath in place Post-radiation pneumonitis Surgical History History of colonoscopy (~09/2020) History of hernia repair History of hysterectomy Status post bilateral mastectomy Family History (Updated 05/02/21 @ 22:50 by Cyndi Chicas MD) Mother Cancer Denies family history of Clotting disorder Social History (Updated 05/02/21 @ 22:51 by Cyndi Chicas MD) Smoking and tobacco status: former smoker Alcohol intake: former Former alcohol use details: Previously drank beer r egularly but none in about a year Substance/Drug Use: never Lives independently: Yes Household members: none Vitals/I&O/Wt Last Vital Signs Pulse 117 H 05/02/21 20:56 Resp 28 H 05/02/21 20:56 BP 99/52 05/02/21 20:56 Pulse Ox 93 05/02/21 20:56 05/02/21 05/02/21 05/02/21 06:59 14:59 22:59 Intake Total 1066.574 / 1066.574 Balance 1066.574 / 1066.574 Weight last 48 hrs Weight 71.214 kg Physical Exam Narrative: EXAM NARRATIVE: Constitutional: Patient is awake, slow to answer questions, extremely pale and ill-appearing HEENT: Normocephalic, pupils are reactive, eye make-up is intact, clear nasopharynx, oropharynx with moist mucous membranes, no petechiae noted Neck: Supple Respiratory: Tachypneic, shallow respirations, no rales rhonchi or wheezes, supraclavicular retractions mild Cardiovascular: Tachycardic, distant heart sounds, no murmurs, capillary refill right at 3 seconds, peripheral pulses are equal but weak, central pulses 2+, no mottling, distal extremities cool to touch, no bruits appreciated Abdomen: Soft, mild tenderness and upper quadrants without rebound or guarding, bowel sounds are present : Normal external genitalia Extremities: Chest wall is tender to palpation over Port-A-Cath site and sternum, status post bilateral mastectomy, edema noted to right lower extremity compared to left lower extremity, no palpable cords, no erythematous or acutely swollen joints appreciated Skin: Dry, pale, no acute sores or rashes identified Neuro: Lethargic, oriented to person and to place but not necessarily to the severity of current situation, not able to answer all questions due to waxing mentation but when does answer for the most part appropriate, face is symmetric, extraocular movements are grossly intact, toes are downgoing, handgrip equal, moves both lower extremities Psych: Cooperative Urinary Catheter Management^: Rothman: Cath Placed During This Visit: yes Urinary Catheter Date of Insertion: 05/02/21 Urinary Catheter Time of Insertion: 21:14 Data : 05/02/21 20:30 05/02/21 18:20 Micro: Microbiology 05/02/21 18:52 Blood Culture - Preliminary Blood SPECIMEN COLLECTED 05/02/21 18:20 Blood Culture - Preliminary Blood SPECIMEN COLLECTED Other data: EKG: Per my interpretation sinus tachycardia, PVCs, no ST segment elevation, nonspecific changes Prior or outside records reviewed: Reviewed previous available [email or web address] records Discussed with other providers: Discussed with ED provider, cardiology, pulmonology A&P Assessment and plan (1) Obstructive cardiovascular shock: With persistent hypotension, tachycardia, elevation in troponin/BNP/lactic acid/creatinine, low platelets, alteration in mental status Status: Acute (2) Acute massive pulmonary embolism: Status post TPA Status: Acute (3) Pulmonary hypertension: Present for some time exacerbated by above Status: Acute (4) Bilateral breast cancer: Has been on anastrozole, follows with Dr. Rascon Status: Acute Qualifiers: Breast location: unspecified site of breast Estrogen receptor status: positive Patient sex: female Qualified Code(s): C50.911 - Malignant neoplasm of unspecified site of right female breast; C50.912 - Malignant neoplasm of unspecified site of left female breast; Z17.0 - Estrogen receptor positive status [ER+] (5) Chronic diarrhea: Status: Chronic Additional A&P Information Abnormal urinalysis Swollen right lower extremity Port-A-Cath Musculoskeletal chest pain from prior surgeries, Port-A-Cath in addition to pain from embolism/shock Inpatient admission ICU care Dr. Markham to follow Continue TPA Receiving Lovenox Continue pressor support, wean as able Given extent of pulmonary hypertension right ventricular strain currently holding further fluids Monitor renal function closely Monitor for signs of bleeding Serial neuro exams PPI Lactobacillus Hold further Cipro and Flagyl Check stool studies Received vancomycin and Zosyn in the emergency room, for now we will monitor and repeat urinalysis after Rothman placement Blood cultures were collected in the emergency room Will have to stop anastrozole Check ultrasound of lower extremities Hold home medications currently with the exception of levothyroxine Supportive care otherwise Had multiple discussions with patient as well as her daughter explaining the clinical situation of PE with shock and risk of without aggressive intervention. Both were given opportunities to ask questions several times. Discussed TPA including risk of bleeding including severe potentially life- threatening bleeding versus the benefit of breaking up the clot so that she does not succumb to PE. Reviewed no epistaxis, hematuria. Has some bright red blood with wiping after bowel movements only of late. Had a colonoscopy in September of this year. Platelet count is in the 90s. After careful discussion with myself, two ER physicians, pulmonology, patient and daughter informed decision was made received with TPA administration. Considerations were given to transfer to outside facility but patient ultimately did not want to be transferred and wanted to stay here. With aggressive care administered in the emergency room she began to stabilize the continues to require critical care management and is at high risk of acute clinical decline necessitating even more aggressive intervention. CODE STATUS was discussed and patient would not want any long-term ventilator dependence or repeated resuscitation but she is okay with short-term intervention including if necessary intubation and CPR. Full code order has been entered. Currently anticipate disposition home though of course will depend on clinical status Lines/tubes: Has a Rothman due to critical nature of current condition, has a port but we are not presently accessing it CODE STATUS: Full code presently that would not want long-term measures Attestations Medical Necessity Statement*: Anticipated stay greater than two midnights inpatient critically ill with PE associated with cardiogenic shock necessitating TPA and other care as indicated. At high risk of without such critical care intervention. Critical Care Time: The high probability of a clinically significant, sudden or life threatening deterioration of the patient's cardiopulmonary system(s) required my full and direct attention, intervention and personal management. The critical care time is as shown. This time is in addition to time spent performing any reported procedures but includes the following: [x] Data and vital sign review and interpretation [x] Patient assessment, examination and intervention [x] Documentation [x] Medication orders and management Critical Care Time (min): 90 Coding Level of Care Code Acute Photographic Laboratory Technician for Chg Fwd Diagnoses Obstructive cardiovascular shock R57.8 Acute massive pulmonary embolism I26.99 Pulmonary hypertension I27.20 Bilateral breast cancer C50.911; C50.912; Z17.0 Breast location: unspecified site of breast Estrogen receptor status: positive Patient sex: female Chronic diarrhea K52.9
[2021-05-02 21:24] LABS: Procalcitonin 0.24 ng/mL (0-0.5)
--- NOTE | 2021-05-02 22:00 | PM.CONSULT ---
Providers/Reason For Consult Consulting Physician/Specialty*: Pulmonary critical care medicine Reason for Consult*: Obstructive shock in the setting of pulmonary embolism Primary Care Provider: FABY Howard History of Present Illness History of Present Illness Bee Zheng is a 71 year old female with a history of bilateral breast cancer status post bilateral modified mastectomies. She had also received chemotherapy and radiation. The patient has a previous history of DVT in her left lower extremity as well and used to be on Coumadin. The patient presented to the hospital today with chest pain, hypotension and altered mental status. It appears that the patient was seen in the emergency department yesterday and was given IV fluid and sent home with a presumed diagnosis of dehydration from chronic diarrhea. According to the chart review, her systolic blood pressure run in the 90s. Today however in the emergency room the patient her blood pressure systolic in the 60s. The patient was tachycardic in the 140s. She initially underwent work-up for a cardiac etiology for her chest pain. However when a CT angiogram of the chest was obtained the patient was found to have bilateral PEs in bilateral lower lobe segmental pulmonary arteries. Her lactic acid level was 6. I was emergently consulted for evaluation of intravenous TPA administration. I had evaluated the patient in the emergency department. The patient was arousable however she was clearly lethargic. Her blood pressure was in the 60s with a heart rate in the 1 teens. Bedside ultrasound revealed severely dilated right ventricle with septal bowing towards the left ventricle both during systole and diastole. The left ventricular cavity was slitlike. There was no blood clot in bilateral veins. Interestingly, her previous chart review also revealed that the pulmonary hypertension is not new for the patient. She has had several CT scans in the past which showed significantly dilated right ventricle. Her pulmonary artery diameter was 5.7 cm in 2020. An echocardiogram obtained in 2019 estimated the pulmonary artery systolic pressure to be 69 mmHg. Interestingly, the patient has never undergone any work-up for pulmonary hypertension. The patient has past medical history of smoking, emphysema which is present on the previous CT scans as well. Based on the information available, I have decided that the patient was suffering from massive pulmonary embolism and would benefit from systemic thrombolysis. I had given her 50 mg of TPA over 20 minutes as bolus followed by another 35 mg over an hour. The patient does not have any history of metastatic lesion in the brain, brain aneurysm, previous stroke, any GI bleed. Prior to initiation of the TPA I had discussed the possible risk including intracranial bleeding with the patient and her daughter. The patient was also requiring 18 mcg of Levophed to obtain adequate blood pressure. After the initiation of the TPA, the patient's blood pressure improved further. Her mental status improved and the patient was able to have a conversation with me. She did not complain of chest discomfort anymore. Review of Systems Narrative: Unable to obtain a complete review of systems because of her clinical condition. Meds/Allergies Home Medications and Allergies Home Medications Medication Instructions Recorded Confirmed Last Taken Type furosemide 40 mg PO DAILY PRN 11/16/19 05/01/21 09/26/20 History gabapentin 300 mg PO BID 11/16/19 05/01/21 05/01/21 History potassium chloride 20 meq PO BID PRN 11/16/19 05/01/21 09/26/20 History anastrozole 1 mg PO DAILY 09/25/20 05/01/21 05/01/21 History pantoprazole 40 mg tablet,delayed 40 mg PO QAM #90 tab 04/23/21 05/01/21 05/01/21 Rx release ciprofloxacin HCl 500 mg tablet 500 mg PO BID 7 Days #14 tab 04/24/21 05/01/21 05/01/21 Rx metronidazole 500 mg tablet 500 mg PO BID 7 Days #14 tab 04/24/21 05/01/21 05/01/21 Rx levothyroxine [Euthyrox] 125 mcg PO DAILY 05/01/21 05/01/21 05/01/21 01:00 History Allergies Allergy/AdvReac Type Severity Reaction Status Date / Time No Known Allergies Allergy Verified 05/02/21 17:57 Current Medications Current Medications Generic Name Dose Route Start Last Admin Trade Name Freq PRN Reason Stop Dose Admin Norepinephrine Bitartrate 4 mg 254 mls @ 0 mls/hr 05/02/21 20:30 05/02/21 21:40 / Dextrose IV 20 mcg/min .Q0M RADHA 76.2 mls/hr Titration Protocol Per Protocol PFSH Acute PFSH: Medical History Bilateral breast cancer 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 Is with Dr. Rascon. Right breast was grade 1 stage IIa (ypT1c, YPN2A, M0), ER/ME positive and HER-2/nu negative. Left breast was grade 3 stage at least 1B (ypT2, YPN2A, M0), ER/ME positive and HER-2/bernadine positive. Chemotherapy stopped after 4 cycles due to toxicity. Had modified radical mastectomy bilaterally and underwent prophylactic chest wall radiation. Chronic diarrhea Drug-induced peripheral neuropathy Chemotherapy History of blood transfusion History of endometrial cancer Status post hysterectomy and bilateral salpingo-oophorectomy with postoperative HDR implant radiation in 2014 Hypothyroidism Post-radiation pneumonitis Surgical History History of colonoscopy (~09/2020) History of hernia repair History of hysterectomy Status post bilateral mastectomy Family History Other Cancer Social History Smoking and tobacco status: former smoker Alcohol intake: current Vitals/I&O/Wt Last Vital Signs Pulse 117 H 05/02/21 21:29 Resp 24 H 05/02/21 21:29 BP 109/54 05/02/21 21:29 Pulse Ox 95 05/02/21 21:29 05/02/21 05/02/21 05/02/21 06:59 14:59 22:59 Intake Total 1114.580 / 1114.580 Balance 1114.580 / 1114.580 Weight last 48 hrs Weight 157 lb Physical Exam Narrative: EXAM NARRATIVE: General: Patient is awake alert and oriented after administration of the TPA Neck: Positive JVD Respiratory: Auscultation: Reduced breath sound bilaterally, no crackles wheezing or rhonchi Cardiovascular: Tachycardia, S1-S2 present, pansystolic murmur in the tricuspid area, positive right ventricular heave, no peripheral edema. Abdomen: Soft, nontender, nondistended, positive bowel sound Musculoskeletal: No obvious joint deformity Skin: No rash Neuro: Mental status is normal, no gross cranial nerve deficit, normal motor and coordination. Urinary Catheter Management^: Rothman: Cath Placed During This Visit: yes Urinary Catheter Date of Insertion: 05/02/21 Urinary Catheter Time of Insertion: 21:14 Data Micro: Micro: Microbiology 05/02/21 18:52 Blood Culture - Pr eliminary Blood SPECIMEN COLLEC WHITNEY 05/02/21 18:20 Blood Culture - Pr eliminary Blood SPECIMEN COLLEC WHITNEY Other Data: Attestation for Other Data: I personally reviewed and interpreted the following: Other data: I have reviewed the patient's laboratory, microbiologic and radiology data. Please see the HPI for detail. A&P Assessment and plan (1) Acute massive pulmonary embolism: The patient has massive pulmonary embolism characterized by hemodynamic instability and lactic acidosis. Currently the patient is on 18 mcg of Levophed. She has received 50 mg of TPA. We are starting her on Lovenox. The patient is looking clinically much better than how she did. She is able to provide a complete history which she was unable to before. Her MAP is greater than 65. At this point, I am not going to give her any more TPA. Although, the recommended doses 100 mg in 2 hours. The data behind this is not very strong. It is likely, that the same amount of benefit could be obtained with a smaller dose. In addition, the clot burden is not extensive. I believe the reason the patient decompensated so quickly even without having anatomic saddle embolus is the presence of previous pulmonary hypertension which has been not been diagnosed. Because of the location of the blood clots the patient is not a candidate for catheter directed embolectomy. And since she has already received systemic TPA she does not need catheter directed thrombolysis at this time. However, if the patient does not show sustained improvement over the next 4 to 6 hours, I will likely give the left over 50 mg of TPA. We need to avoid giving IV fluid to this patient. I have discussed the risk of having bleeding including intracranial bleed with the patient and the family. We will keep a close on a her in the ICU. The patient will likely need lifelong anticoagulation in the future. Status: Acute (2) Pulmonary hypertension: The patient likely has significant pulmonary hypertension. The etiology of this is unclear to me. Once the patient is out of the acute phase, she will need further work-up for this pulmonary hypertension in the future. Status: Acute (3) Obstructive cardiovascular shock: I am hoping that the TPA will help with resolution of the obstructive shock in the near future. Status: Acute (4) Bilateral breast cancer: The patient is under the care of Dr. Rascon for the metastatic breast cancer. Status: Acute Coding Level of Care Code Acute Booster Pump Operator for Dawood Barrientos Diagnoses Acute massive pulmonary embolism I26.99 Pulmonary hypertension I27.20 Obstructive cardiovascular shock R57.8 Bilateral breast cancer C50.911; C50.912
[2021-05-02] MEDS: enoxaparin 80 mg/0.8 mL Syringe 70 MG SUBCUT (22:08)
[2021-05-02 22:32] LABS: Reflex Lactate Order REFLEX LACTIC ORDERD
--- NOTE | 2021-05-02 23:28 | PC.NURSE ---
called report to ICU nurse
--- NOTE | 2021-05-02 23:28 | PC.NURSE ---
verbal consent for TPA was obtained from patient with Dr. Markham and myself at bedside. Was given emergently
--- NOTE | 2021-05-02 23:37 | PC.NURSE ---
PTarrived at 2330 via stretcher from ER with staff x2. Pt AAOx4. VSS. Levophed infusing at 20mcg/min. Rothman cath draining clear raul urine to BSD. Makes all needs known. Pt repositioned in bed. No issues noted at this time. Will monitor.
--- NOTE | 2021-05-02 23:52 | ECG_ITS ---
[facility] Test Date: 2021-05-02 Pat Name: Bee Zheng Department: Room: Gender: Female Third Shift Lieutenant: : 1950 Requested By: Driss Turpin Order Number: [id number] Roxanne MD: Oralia Berumen M.D. Measurements Intervals Natalia Rate: 119 P: 72 LA: 114 QRS: 161 QRSD: 146 T: -20 QT: 334 QTc: 471 Interpretive Statements SINUS TACHYCARDIA WITH SHORT LA INTERVAL WITH FREQUENT VENTRICULAR PREMATURE COMPLEXES MARKED RIGHT AXIS DEVIATION [QRS AXIS > 100] RIGHT BUNDLE BRANCH BLOCK [120+ ms QRS DURATION, UPRIGHT V1, 40+ ms S IN I/aVL/V4/V5/V6] SEPTAL MYOCARDIAL INFARCTION [40+ ms Q WAVE IN V1/V2], OF INDETERMINATE AGE Compared to ECG 08/29/2019 13:51:49 Ventricular premature complex(es) now present Short LA interval now present Myocardial infarct finding now present Electronically Signed On 05-03-2021 6:32:28 CDT by Oralia Berumen M.D. [email or web address]
[2021-05-03] VITALS (144 sets, daily range): BP systolic 71–136; BP diastolic 37–87; PULSE 97–130; RESP 4–32; TEMP 36.3–36.6; O2SAT 77–98
[2021-05-03 00:26] LABS: Lactic Acid level (Lactate) 4.7 mmol/L (0.5-2.2)
--- NOTE | 2021-05-03 01:37 | PC.NURSE ---
SPO2 88% on 3LNC. Fio2 increased to 3.5LNC. Hob raised. Will monitor.
--- NOTE | 2021-05-03 01:57 | PC.NURSE ---
FIO2 increased to 4LNC. Pt sleeping with mouth wide open.
[2021-05-03 04:25] LABS: Basophils % 0.5 %; Hematocrit 57.4 % (37.0-47.0); Hemoglobin 18.8 g/dL (11.5-15.3); Lymphocytes # 0.9 10^3/uL (0.8-4.8); Lymphocytes % 10.9 %; Mean Corpuscular HGB Conc 32.8 g/dL (30.0-36.0); Mean Corpuscular Hemoglobin 34.4 pg (28.0-34.0); Mean Corpuscular Volume 105.1 fL (81-99); Mean Platelet Volume 10.8 fL (7.4-10.4); Monocytes # 0.5 10^3/uL (0.2-0.9); Monocytes % 6.4 %; Neutrophils # 6.45 10^3/uL (1.8-7.7); Neutrophils % 80.8 %; Nucleated Red Blood Cells % 0 %; Platelet Count 60 10^3/cmm (130-400); Red Blood Count 5.46 10^6/uL (4.1-5.3); Red Cell Distribution Width 16.7 % (12.1-15.1)
--- NOTE | 2021-05-03 04:48 | PC.NURSE ---
Per Dr. Markham, wean levophed to map >65 as quick as possible to prevent high bp's and increased chance of intracranial bleed.
[2021-05-03 05:01] LABS: Slide Review Slide Review Perform
[2021-05-03 05:29] LABS: Alanine Aminotransferase 100 U/L (0-33); Albumin Level 1.9 g/dL (3.5-5.2); Alkaline Phosphatase 155 IU/L (35-105); Blood Urea Nitrogen 17 mg/dL (8-23); Calcium 7.8 mg/dL (8.5-10.5); Carbon Dioxide 12 mmol/L (22-29); Chloride 105 mmol/L (98-107); Glomerular Filtration Rate 27.9 mL/min (90-130); Glucose 147 mg/dL (65-115); Osmolality Calculated 280 mOsm/kg (285-295); Sodium 133 mmol/L (136-145); Total Protein 5.9 g/dL (6.6-8.7)
[2021-05-03 05:30] LABS: Anion Gap 19.9 (5-19); Aspartate Amino Transferase 486 U/L (0-32); Potassium 3.9 mmol/L (3.5-5.1)
--- NOTE | 2021-05-03 06:22 | PC.NURSE ---
US completed of BLE. BP cuff moved to L leg d/t possible thrombus in R greater saphenous vein and R popliteal. No other issues noted. Levophed decreased to 10mcg/min, MAP 80, BP 95/73.
--- NOTE | 2021-05-03 08:03 | USCV_ITS ---
Bee Zheng Age: 71 Gender: F : 1950 Exam Date: 05/03/2021 09:50 Ordering Phys: Patel Jain MD Technologist: Warren Ireland Exam Location: [facility] [place] Indication: BP: 108 / 72 HR: 100 Rhythm: Sinus Technical Quality: Technically difficult study MEASUREMENTS (Male / Female) Normal Values 2D ECHO LVOT Diameter 2.0 cm LA Diameter 3.2 cm LA Width 3.9 cm LA Height 4.4 cm RA Width 3.4 cm RA Height 4.8 cm M-MODE LV Diastolic Diameter MM 4.7 cm 4.2 - 5.9 / 3.9 - 5.3 cm LV Systolic Diameter MM 3.2 cm LV Ejection Fraction MM Teich 60.5 % IVS Diastolic Thickness MM 1.0 cm 0.6 - 1.0 / 0.6 - 0.9 cm IVS Systolic Thickness MM 2.0 cm LVPW Diastolic Thickness MM 1.3 cm 0.6 - 1.0 / 0.6 - 0.9 cm LVPW Systolic Thickness MM 1.8 cm RV Diastolic Diameter MM 1.8 cm DOPPLER AV Peak Velocity 106.0 cm/s LVOT Peak Velocity 46.0 cm/s AV Area Cont Eq vti 2.4 cm squared AV Area Cont Eq pk 1.4 cm squared MV Area PHT 14.7 cm squared Mitral E to A Ratio 1.3 MV E' Velocity 47.0 cm/s Mitral E to LV E' Septal Ratio 5.4 TR Peak Velocity 250.0 cm/s TR Peak Gradient 25.0 mmHg Right Atrial Pressure 15.0 mmHg Pulmonary Artery Systolic Pressu 40.0 mmHg FINDINGS Left Ventricle Very limited quality echocardiogram. Grossly LV systolic function appears to be normal however accurate assessment not possible because of poor visualization Right Ventricle Not visualized Right Atrium Not well visualized Left Atrium Not well visualized Mitral Valve Not well visualized Aortic Valve Not well visualized Tricuspid Valve Not visualized Pulmonic Valve Not visualized Pericardium Small pericardial effusion is seen Aorta Not visualized CONCLUSIONS Very limited quality echocardiogram because of poor ultrasonic windows and inability to visualze cardiac structures.Grossly LV systolic function appears to be normal however accurate assessment not possible because of poor visualization Small pericardial effusion is seen Recommend limited echocardiogram with contrast for better visualization Colton Garcia MD (Electronically Signed) Final Date: 03 May 2021 14:56 S
[2021-05-03] MEDS: lactobacillus 1 Tablet 1 TAB PO ×2 (08:43→17:56)
[2021-05-03] MEDS: pantoprazole DR 40 mg Tablet PO (08:43)
--- NOTE | 2021-05-03 09:51 | P.PN_ITS ---
Subjective Subjective: Interval history: She is doing somewhat better. She is having some cough. Some phlegm production, denies hemoptysis. Denies chest pain. Is not lightheaded. Vitals/I&O/Wt Last Vital Signs Temp 97.4 F L 05/03/21 05:06 Pulse 100 05/03/21 09:06 Resp 24 H 05/03/21 09:06 BP 85/63 05/03/21 09:06 Pulse Ox 95 05/03/21 08:00 05/02/21 05/03/21 05/03/21 22:59 06:59 14:59 Intake Total 1114.580 / 8697.809 3804.567 / 2941.147 Output Total 150 / 150 Balance 1114.580 / 2418.307 3736.567 / 2791.147 Weight last 48 hrs Weight 76.204 kg Weight 75.977 kg Weight 71.214 kg Physical Exam Const: COMMON NORMALS: no acute distress, patient oriented x3 and alert GENERAL APPEARANCE: cooperative and comfortable ORIENTATION/CONSCIOUSNESS: Yes awake HENMT: COMMON NORMALS: oropharynx normal Neck/C-Spine: COMMON NORMALS: no JVD Resp: COMMON NORMALS: normal respiratory effort and clear to auscultation bilaterally AUSCULTATION: clear to auscultation bilaterally Cardio: COMMON NORMALS: no JVD, regular rhythm, S1 normal heart sound present, S2 normal heart sound present and No murmurs present (Cardio) RHYTHM: regular rhythm HEART SOUNDS: S1 normal heart sound present and S2 normal heart sound present GI: COMMON NORMALS: Normal to inspection, nondistended, normoactive bowel sounds present, Soft to palpation and non-tender PALPATION: Yes Soft to palpation Extremity: COMMON NORMALS: no joint enlargement GENERAL: Yes edema (1+) Neuro: COMMON NORMALS: patient oriented x3 and moves all extremities SENSORIUM/ORIENTATION: Yes alert Skin: COMMON NORMALS: no rashes or lesions noted GENERAL SKIN EXAM: no rashes or lesions noted Urinary Catheter Management^: Rothman: Cath Placed During This Visit: yes Reason for Continuing Indwelling Catheter: Accurate Measurement of Urinary Output in Critically Ill Patients Urinary Catheter Date of Insertion: 05/02/21 Urinary Catheter Time of Insertion: 21:14 Data : 05/03/21 03:45 05/03/21 03:45 Micro: Microbiology 05/02/21 18:52 Blood Culture - Preliminary Blood SPECIMEN COLLECTED 05/02/21 18:20 Blood Culture - Preliminary Blood SPECIMEN COLLECTED A&P Assessment and plan (1) Obstructive cardiovascular shock: Improving gradually. Down to 10mg Levophed. Continue to wean as t olerating. Repeat LA Multiorgan injury: YORDY, worsening liver parameters, troponin elevation with ri ght heart strain. Monitor kidney, liver parameters. Denies chest pain. Monitor for decompensated heart failure. Avoid fluid overload. Status: Acute (2) Acute massive pulmonary embolism: Status post TPA Recheck CBC, as hemoglobin appears to be higher than yesterday, 18.8. Appears to be spurious result. Noted platelet decreased to 60,000. History of fluctuating platelet levels. Acute DVT noted on right leg. Some blood streaks noted in the brown loose stool this morning. Currently has Lovenox on board. Acute kidney injury, creatinine clearance decreased below 30. Does not need additional dose of Lovenox until this evening. Would likely switch over to heparin drip without bolus, however, will recheck C BC now and again later in the afternoon to see if additional anticoagulation is safe. With low platelets, acute DVT, hemodynamically significant PE, some blood in the stool, will need IVC filter. We are reaching out to interventional cardiology. Status: Acute (3) Pulmonary hypertension: Present for some time exacerbated by above Status: Acute (4) Bilateral breast cancer: Has been on anastrozole, follows with Dr. Rascon Status: Acute Qualifiers: Breast location: unspecified site of breast Estrogen receptor status: positive Patient sex: female Qualified Code(s): C50.911 - Malignant neoplasm of unspecified site of right female breast; C50.912 - Malignant neoplasm of unspecified site of left female breast; Z17.0 - Estrogen receptor positive status [ER+] (5) Chronic diarrhea: Status: Chronic Additional A&P Information Streaks in stool: Noted this morning in loose brown stool. No external hemorrhoids were seen. Recheck blood counts. Cautious anticoagulation, if blood counts remained steady, no further bleeding, with regards to anticoagulation with transition to heparin drip without bolus, if any recurrence of bleeding, decline in hemoglobin, may not be able to tolerate anticoagulation. If bleeding, platelets remain low, transfuse. Abnormal urinalysis Swollen right lower extremity Port-A-Cath Musculoskeletal chest pain from prior surgeries, Port-A-Cath in addition to pain from embolism/shock Attestations Medical Necessity Statement*: Continue admission for assessment management of hemodynamically significant PE, status post TPA, anticoagulation, in the setting of thrombocytopenia, possible GI bleed, multiple organ injury. Coding Level of Care Code Acute Pharmacy Benefit Manager for [facility] Fwd Diagnoses Obstructive cardiovascular shock R57.8 Acute massive pulmonary embolism I26.99 Pulmonary hypertension I27.20 Bilateral breast cancer C50.911; C50.912; Z17.0 Breast location: unspecified site of breast Estrogen receptor status: positive Patient sex: female Chronic diarrhea K52.9
[2021-05-03 11:06] LABS: Lactate (Lactic Acid level) 3.1 mmol/L (0.5-2.2)
[2021-05-03 11:25] LABS: Basophils # 0.2 10^3/uL (0.0-0.1); Basophils % 1.7 %; Eosinophils % 0.3 %; Hematocrit 40.4 % (37.0-47.0); Hemoglobin 12.1 g/dL (11.5-15.3); Lymphocytes # 1.7 10^3/uL (0.8-4.8); Lymphocytes % 16.4 %; Mean Corpuscular Hemoglobin 34.3 pg (28.0-34.0); Mean Corpuscular Volume 114.4 fL (81-99); Mean Platelet Volume 10.8 fL (7.4-10.4); Monocytes % 9.7 %; Neutrophils # 7.48 10^3/uL (1.8-7.7); Neutrophils % 71.2 %; Nucleated Red Blood Cells % 0 %; Platelet Count 119 10^3/cmm (130-400); Red Blood Count 3.53 10^6/uL (4.1-5.3); Red Cell Distribution Width 16.3 % (12.1-15.1); White Blood Count 10.5 10^3/uL (4.0-10.0)
--- NOTE | 2021-05-03 13:39 | PM.PN ---
Subjective Subjective: Interval history: Patient had TPA last night for hemodynamically significant pulmonary embolism. She has right popliteal peroneal great saphenous vein near saphenofemoral junction DVT. She has GI bleed on anticoagulation Vitals/I&O/Wt Last Vital Signs Temp 97.4 F L 05/03/21 05:06 Pulse 101 H 05/03/21 13:00 Resp 22 H 05/03/21 13:00 BP 105/63 05/03/21 13:00 Pulse Ox 96 05/03/21 13:00 05/02/21 05/03/21 05/03/21 22:59 06:59 14:59 Intake Total 1114.580 / 7250.710 0564.567 / 2941.147 202.946 / 202.946 Output Total 150 / 150 Balance 1114.580 / 6901.535 0713.567 / 2791.147 202.946 / 202.946 Weight last 48 hrs Weight 168 lb Weight 167 lb 8 oz Weight 157 lb Physical Exam Narrative: EXAM NARRATIVE: GENERAL: Patient is alert, awake and oriented x3. Not in distress NECK: No jugular vein distension. HEENT: No cyanosis. No icterus. No pallor. HEART: Regular S1 and S2. No murmur, rub or gallop. LUNGS: Decreased breath bilaterally. ABDOMEN: Soft, nontender and nondistended. Positive bowel sounds. No guarding, rebound or tenderness. CENTRAL NERVOUS SYSTEM: Grossly nonfocal. EXTREMITIES: Lower extremities without edema bilaterally. Urinary Catheter Management^: Rothman: Cath Placed During This Visit: yes Reason for Continuing Indwelling Catheter: Accurate Measurement of Urinary Output in Critically Ill Patients Urinary Catheter Date of Insertion: 05/02/21 Urinary Catheter Time of Insertion: 21:14 Data : 05/03/21 10:30 05/03/21 03:45 Micro: Microbiology 05/02/21 18:52 Blood Culture - Preliminary Blood SPECIMEN COLLECTED 05/02/21 18:20 Blood Culture - Preliminary Blood SPECIMEN COLLECTED A&P Assessment and plan (1) Chest pressure: Currently denies any chest pain. Status: Acute (2) Pulmonary embolism: Patient had TPA last night feeling better however on anticoagulation he started having GI bleed. Patient has underlying malignancy with hypercoagulable state. She has a right dilated ventricle acute on chronic right-sided failure with pulmonary hypertension. She has right popliteal and great saphenous vein DVT at the junction of saphenous and femoral vein. Pulmonary and medicine think that patient cannot take anticoagulation in between further GI bleed. She is at high risk of another thromboembolic pulmonary embolism phenomenon which may can be catastrophic and detrimental for the patient. It is the reason we have been asked for IVC filter placement. I concur with the findings and suggestion. I have detailed discussion with the patient and her daughter by bedside. I have explained all risk benefit and alternative for the procedure. I have explained the risk for another pulmonary embolism while performing the procedure due to any clot which can get loose, she understand the risk for clogging up of IVC filter. She understand the risk for pulmonary embolism while retrieval which we are planning in 3 to 4 months, she understand the risk of laceration of the IVC leading to bleeding worse case scenario . She understand the risk for infection hematoma bruising. She understand the risk for contrast-induced nephropathy leading to transient or permanent dialysis. She would like to proceed with it. Status: Acute Qualifiers: Acute cor pulmonale presence: unspecified Chronicity: acute Pulmonary embolism type: unspecified Qualified Code(s): I26.99 - Other pulmonary embolism without acute cor pulmonale (3) Hypotension: Patient is on pressor and slowly improving. I will kept her also on IV fluid. Status: Acute Qualifiers: Hypotension type: unspecified hypotension type Qualified Code(s): I95.9 - Hypotension, unspecified Attestations Medical Necessity Statement*: Patient require continuation hospitalization for above defined care. Coding Level of Care Code Established Pt Acute Variety Lathe Operator for [facility] Fwd Patient Type Established History Detailed Exam Detailed Medical Decision Making Moderate Complexity Diagnoses Chest pressure R07.89 Pulmonary embolism I26.99 Acute cor pulmonale presence: unspecified Chronicity: acute Pulmonary embolism type: unspecified Hypotension I95.9 Hypotension type: unspecified hypotension type
--- NOTE | 2021-05-03 15:52 | XACV_ITS ---
Ht: 165 cm Wt: 76 kg BSA: 1.89 m2 Gender: Female : 1950 Exam Type: Invasive Peripheral Vascular Procedure(s): Procedure Description: Peripheral vascular Intervention Procedure Description: PV IVC Filter Placement Exam Priority: Routine Abdominal Interventional Findings Indication for IVC filter: Inability to take anticoagulation due to GI bleed anemia. High risk for pulmonary embolism. After careful explaining all risk benefit and alternative for the procedure under sterilized condition through left common femoral venous approach using pigtail venogram was performed. Renal veins were identified. Using [employer] Galt celect IVC filter device IVC filter was delivered below the renal veins. Procedure remained successful. We are planning to take out IVC filter in 3 months once patient will be able to tolerate anticoagulation. . Recommendations Using Perclose left common femoral vein was sutured. Good hemostasis achieved. Usual post IVC filter care. Follow-up with cardiology in 7 days. Follow-up with Dr. Fernando in 3 months for IVC filter retrieval assessment.. Access Site Site: Left Femoral vein Sheath Size: 6 Fr Hemost... Method: Perclose ([employer]) Hemost... Success: Successful Procedure Details Findings Procedure Consent Obtained. Pre-Procedure Time Out. Identified patient by full name and date of as verbalized by the patient/guarantor. Does the consent match the physician's order: Yes. Accurate & Complete Informed Consent: Yes. Inpatient/Outpatient History & Physical on Chart: Yes. If H&P is completed, is and addenduem needed: No; If yes, is the addendum complete: N/A. Visualize and Verify Site with Patient/Guarantor: N/A. Relevant Radiology Images available: N/A. Pre-op teaching completed and patient verbalized understanding. The risks, benefits, and alternatives of sedation and/or procedure were discussed by physician. The patient agrees to continue. Procedure started. Correct patient, site and procedure confirmed by cath team. PERRLA. Strong, equal hand packaging operator bilaterally. Lungs clear x 5 lobes. Pt has Levophed running at 10 mcg/min. Pt arrived with pacheco catheter in place. IV Site on Arrival: 18 gauge in the left anticubital. IV Site on Arrival: 20 gauge in the right anticubital. Oxygen started at 4liters/min via nasal canula. bilateral groins was prepped with chloroprep then draped in the usual sterile fashion. Physician arrived. Physician scrubbed in. Immediate Pre-Procedure Time Out. Correct Patient: Yes; Correct Procedure: Yes; Correct Site: Yes; Correct Patient Position: Yes; Correct Supplies: Yes; Dried Flammable Prep: Yes; Blood Products Available: N/A;. Lidocaine 1% infiltrated to the left groin. Venous access obtained with a micropuncture set. Blood pressure cuff on pt left lower leg. Wire and needle out. Venous access obtained with a micropuncture set. A 6 [place] Angled Pig catheter in over wire. Abdominal aortogram performed in AP @ 10 mL/sec for a total of 30 mL. Abdominal aortogram performed in AP @ 10 mL/sec for a total of 30 mL. Abdominal aortogram performed in AP @ 10 mL/sec for a total of 30 mL. Catheter removed over the standard wire. Short 6 fr sheath exchanged for IVC filter sheath. [employer] [place] IVC filter loaded and inserted. IVC filter deployed. Lot # [id number]. 2 Perclose ([employer]) was successful obtaining hemostatsis at the Left Femoral vein insertion site. 2 Perclose placed without complications. No signs or symptoms of hematoma noted. Sterile dressing applied per usual sterile fashion. Levophed decreased to 5 mcg/min. NS bolus total 560 ml. NS now running at 100 ml/hr. Post Procedure: Pulses reassessed and unchanged. PERRLA. Strong, equal hand packaging operator bilaterally. No VTE prophylaxis required. Medication's Wasted: Heparin = 1000 units. Total IV fluids: 560 mL. Contrast type used: Omnipaque 300 mgI/mL, 500 mL bottle. Post-op diagnosis: DVT, IVC filter placement. Complications: none. Estimated blood loss: 5mL-10mL. Procedure completed. Patient transferred by bed to ICU. Vital chart was stopped. Procedure Medications Start: 4:14 PM Stop: 4:14 PM Medication: Versed Amount: 1 mg Route: I.V. Start: 4:14 PM Stop: 4:14 PM Medication: Fentanyl Amount: 25 mcg Route: I.V. Start: 4:19 PM Stop: 4:19 PM Medication: 0.9% Saline Amount: 250 ml Route: I.V. bolus Start: 4:25 PM Stop: 4:25 PM Medication: Versed Amount: 1 mg Route: I.V. Start: 4:25 PM Stop: 4:25 PM Medication: Fentanyl Amount: 25 mcg Route: I.V. I, the attending physician, have reviewed and verified all procedure medications. Yes, all medications given per verbal order Report Signatures Finalized by Etta Fernando MD on 05/17/2021 08:10 PM
[2021-05-03] MEDS: FUROsemide 10 mg/mL SDV 4mL 40 MG IVP (15:54)
--- NOTE | 2021-05-03 16:02 | PC.NURSE ---
transfer per bed to catheterization laboratory technician for procedure
--- NOTE | 2021-05-03 16:11 | P.HPUD_ITS ---
Surgery/Procedure H&P Update DATE OF PROCEDURE: May 03, 2021 DATE H&P PERFORMED: 05/03/21 H&P UPDATE INFORMATION: I have reviewed H&P completed within last 30 days, I have examined patient prior to procedure and No changes to prior documentation PREOP DIAGNOSIS: IVC filter placement for inability to take anticoagulation in a hemodynamic PLANNED PROCEDURE: Inability to take anticoagulation and hemodynamically signif icant pulmonary embolism PATIENT REASSESSED PRIOR TO SEDATION, WITH NO CHANGE NOTED: Yes PHYSICAL EXAM: alert, oriented x 3 and clear to auscultation bilaterally AIRWAY EVAL/ANESTHESIA PLAN: ASA II, Risks, benefits & alternatives of sedation and/or procedure discussed and Patient agrees to continue as planned
[2021-05-03 16:39] LABS: Basophils # 0.1 10^3/uL (0.0-0.1); Basophils % 1.3 %; Eosinophils # 0.1 10^3/uL (0.0-0.8); Eosinophils % 0.9 %; Hematocrit 36.3 % (37.0-47.0); Hemoglobin 11.8 g/dL (11.5-15.3); Lymphocytes # 1.1 10^3/uL (0.8-4.8); Lymphocytes % 11.1 %; Mean Corpuscular HGB Conc 32.5 g/dL (30.0-36.0); Mean Corpuscular Hemoglobin 34.2 pg (28.0-34.0); Mean Corpuscular Volume 105.2 fL (81-99); Mean Platelet Volume 11.1 fL (7.4-10.4); Monocytes # 0.9 10^3/uL (0.2-0.9); Monocytes % 8.7 %; Neutrophils # 7.95 10^3/uL (1.8-7.7); Neutrophils % 77.4 %; Nucleated Red Blood Cells % 0.2 %; Platelet Count 122 10^3/cmm (130-400); Red Blood Count 3.45 10^6/uL (4.1-5.3); Red Cell Distribution Width 15.9 % (12.1-15.1); White Blood Count 10.3 10^3/uL (4.0-10.0)
--- NOTE | 2021-05-03 17:52 | PM.PN ---
Subjective Subjective: Interval history: The patient was seen and examined in the ICU. She is awake alert oriented and able to have a conversation without having any significant shortness of breath. She is only on 2 L oxygen saturating in the mid to high 90s. The patient was on 10 mics of Levophed with a MAP more than 75. I performed a bedside ultrasound. The patient is still has echocardiographic evidence of right-sided pressure and volume overload. However, the septal bowing towards the left ventricle is reduced compared to how it was before the TPA last night. The patient had mild GI bleed today. DVT study revealed acute mobile thrombus near the saphenofemoral junction. The patient is going to undergo IVC filter placement today. She had received a dose of Lovenox at 10 PM last night which will be adequate for her till 10 PM tonight. Her GFR is less than 30. The patient was hypotensive likely more than 4 to 6 hours which is contributing to acute tubular necrosis. The patient would not get better with IV fluid. The kidney has to get better on its own. In the meantime, it would be extremely crucial to maintain her volume status. Medications: Reviewed: Yes Vitals/I&O/Wt Last Vital Signs Temp 98 F 05/03/21 14:00 Pulse 130 H 05/03/21 17:15 Resp 24 H 05/03/21 17:15 BP 94/79 05/03/21 17:15 Pulse Ox 98 05/03/21 15:45 05/03/21 05/03/21 05/03/21 06:59 14:59 22:59 Intake Total 1826.567 / 2941.147 202.946 / 202.946 200 / 402.946 Output Total 150 / 150 Balance 1676.567 / 2791.147 202.946 / 202.946 200 / 402.946 Weight last 48 hrs Weight 168 lb Weight 167 lb 8 oz Weight 157 lb Physical Exam Narrative: EXAM NARRATIVE: General: Patient is awake alert and oriented, in no distress Neck: Positive JVD Respiratory: Auscultation: Reduced breath sound bilaterally, no crackles wheezing or rhonchi Cardiovascular: Tachycardia, S1-S2 present, pansystolic murmur in the tricuspid area, positive right ventricular heave, no peripheral edema Abdomen: Soft, nontender, nondistended, positive bowel sound Musculoskeletal: No obvious joint deformity Skin: No rash Neuro: Mental status is normal, no gross cranial nerve deficit, normal motor and coordination. Urinary Catheter Management^: Rothman: Cath Placed During This Visit: yes Reason for Continuing Indwelling Catheter: Accurate Measurement of Urinary Output in Critically Ill Patients Urinary Catheter Date of Insertion: 05/02/21 Urinary Catheter Time of Insertion: 21:14 Data : 05/03/21 16:26 05/03/21 03:45 Micro: Microbiology 05/02/21 18:52 Blood Culture - Preliminary Blood SPECIMEN COLLECTED 05/02/21 18:20 Blood Culture - Preliminary Blood SPECIMEN COLLECTED Attestation for Other Data: I personally reviewed and interpreted the following: Other data: I have reviewed the patient's laboratory, microbiologic and radiologic data. A&P Assessment and plan (1) Acute massive pulmonary embolism: The patient is status post TPA. Today the patient looks much better. Her norepinephrine requirement has come down. The tachycardia is also better. The patient had one episode of bloodstained stool. Her hemoglobin has been stable. The patient is several liters fluid positive which could have contributed to mild dilutional anemia compared to the admission hemoglobin. The patient needs anticoagulation. We will start heparin drip without bolus. I would strongly recommend against giving the patient any IV fluid at this point. The patient has evidence of both pressure and volume overloaded right ventricle. Although there has been some improvement in the LV cavity size after TPA, continuation of IV fluid will likely result in further interventricular septal deviation to the left ventricle leading to impaired blood filling of the left ventricle during diastole as well as diastolic dysfunction. The patient is in fact getting a significant amount of IV fluid through the Levophed. And will also get heparin drip that will also contribute to positive fluid balance. The patient also has YORDY likely secondary to acute tubular necrosis. The patient will retain fluid till the kidney function starts getting better. In fact, I have given the patient a dose of Lasix. She may need further doses of Lasix. The patient can continue with oral hydration if there is any concern for dehydration. IV fluid can further complicate the patient's recovery in the setting of severe pulmonary hypertension as well as obstructive shock secondary to pulmonary embolism. Status: Acute (2) Pulmonary hypertension: The patient likely has significant pulmonary hypertension. The etiology of this is unclear to me. Once the patient is out of the acute phase, she will need further work-up for this pulmonary hypertension in the future. Status: Acute (3) Obstructive cardiovascular shock: The patient is status post TPA. We will titrate down the Levophed with a goal map of 65. Status: Acute (4) Metabolic acidosis: This is secondary to acute kidney injury. I have started the patient on oral bicarb. If the bicarb level drops further, we may need a concentrated bicarb drip to reduce volume. Status: Acute (5) Bilateral breast cancer: The patient is under the care of Dr. Rascon for the metastatic breast cancer. Status: Acute Attestations Medical Necessity Statement*: Will defer to the primary team Coding Level of Care Code Acute Operations Analyst for [facility] Fwd Diagnoses Acute massive pulmonary embolism I26.99 Pulmonary hypertension I27.20 Obstructive cardiovascular shock R57.8 Metabolic acidosis E87.2 Bilateral breast cancer C50.911; C50.912
[2021-05-03] MEDS: sodium chloride 0.45% 1,000 ML 100 ML IV (17:56)
[2021-05-03] MEDS: heparin drip 25,000 UNIT/500 ML PREMIX 21 UNIT IV (19:40)
--- NOTE | 2021-05-03 19:43 | PC.NURSE ---
heparin gtt started per MD orders with no bolus. Started at 21ml/h per protocol. PTT ordered for 6 hours. O2 incresed to 3LNC due to decreased o2 sats. Will monitor.
[2021-05-03] MEDS: sodium bicarbonate 650 mg Tablet PO (20:45)
--- NOTE | 2021-05-03 22:34 | PC.NURSE ---
BP 71/44, levophed increased to 6mcg/min.
--- NOTE | 2021-05-03 23:36 | USCV_ITS ---
Bee Zheng Age: 71 Gender: F : 1950 Exam Date: 05/03/2021 06:05 Ordering Phys: Cyndi Chicas MD Technologist: Lucrecia Velasquez Exam Location: [facility] [place] Indication: PE WITH RT HEART STRAIN HISTORY: PE PROCEDURES: The venous duplex Doppler examination of both lower extremities was performed in the standard fashion. The following venous structures were evaluated: common femoral vein, profunda vein, proximal portion of the greater saphenous vein, superficial femoral vein, and the popliteal vein. In addition, the posterior tibial and peroneal trunk were evaluated. Serial compression, augmentation maneuvers, and spectral Doppler flow evaluation were performed. FINDINGS: RT proximal GSV has very mobile thrombus at the junction with CFV. The right common and superficial femoral vein are adequately visualized with no evidence of deep vein thrombosis. Evidence of acute partial deep vein thrombosis in the right popliteal vein with abnormal flow dynamics. Evidence of acute occlusive deep vein thrombosis in the right posterior tibial vein with abnormal flow dynamics. Lt lower ext has no obvious DVT or superficial thrombus. CONCLUSIONS Acute DVT right popliteal and Peroneal veins. Acute right GSV thrombosis at junction of CFV. Nurse Soham notified after completion of the exam. Dr. Whit Hughes DO (Electronically Signed) Final Date: 03 May 2021 09:03 S
[2021-05-04] VITALS (61 sets, daily range): BP systolic 78–117; BP diastolic 45–83; PULSE 93–123; RESP 16–35; TEMP 36.2–36.7; O2SAT 79–97
[2021-05-04 02:25] LABS: Basophils # 0.1 10^3/uL (0.0-0.1); Basophils % 1.5 %; Eosinophils % 0.4 %; Hematocrit 33.5 % (37.0-47.0); Lymphocytes # 1.2 10^3/uL (0.8-4.8); Lymphocytes % 16.5 %; Mean Corpuscular HGB Conc 32.8 g/dL (30.0-36.0); Mean Corpuscular Hemoglobin 34.5 pg (28.0-34.0); Mean Platelet Volume 11.1 fL (7.4-10.4); Monocytes % 12.8 %; Neutrophils # 5.13 10^3/uL (1.8-7.7); Neutrophils % 68.4 %; Nucleated Red Blood Cells % 0.3 %; Platelet Count 121 10^3/cmm (130-400); Red Blood Count 3.19 10^6/uL (4.1-5.3); Red Cell Distribution Width 15.9 % (12.1-15.1); White Blood Count 7.5 10^3/uL (4.0-10.0)
[2021-05-04 02:42] LABS: INR 1.48 (0.8-1.2)
[2021-05-04 02:44] LABS: Alanine Aminotransferase 81 U/L (0-33); Albumin Level 1.8 g/dL (3.5-5.2); Alkaline Phosphatase 122 IU/L (35-105); Anion Gap 13.8 (5-19); Aspartate Amino Transferase 174 U/L (0-32); Blood Urea Nitrogen 16 mg/dL (8-23); Calcium 7.4 mg/dL (8.5-10.5); Carbon Dioxide 20 mmol/L (22-29); Chloride 103 mmol/L (98-107); Globulin 3.3 g/dL (1.3-4.6); Glomerular Filtration Rate 34.4 mL/min (90-130); Glucose 98 mg/dL (65-115); Osmolality Calculated 279 mOsm/kg (285-295); Phosphorus 3.9 mg/dL (2.5-4.5); Sodium 134 mmol/L (136-145); Total Bilirubin 0.6 mg/dL (0.15-1.2); Total Protein 5.1 g/dL (6.6-8.7)
[2021-05-04 02:48] LABS: Potassium 2.8 mmol/L (3.5-5.1)
[2021-05-04 02:50] LABS: Partial Thromboplastin Time 111.1 SECONDS (23.9-36.7)
[2021-05-04] MEDS: potassium chloride ER 20 mEq Tablet 60 MEQ PO (03:26)
[2021-05-04] MEDS: magnesium sulfate premix 2 GM/50 ML PIGGYBACK IV ×2 (03:27→20:46)
--- NOTE | 2021-05-04 06:22 | PC.NURSE ---
PT resting in bed. Heparin infusing per protocol. K and mg repleted overnight per Dr. Markham. Labs ordered to recheck electrolytes ordered. Levophed infusing at 6mcg/min. VSS. Multiple small, liquid BM's overnight. Excellent UOP. Dressing to L groin c/d/i. Denies any pain. AAOx4. Will monitor.
[2021-05-04 07:57] LABS: Partial Thromboplastin Time 77.1 SECONDS (23.9-36.7)
--- NOTE | 2021-05-04 08:04 | PC.NURSE ---
ptt 79 decreased heparin per protocol
[2021-05-04] MEDS: pantoprazole DR 40 mg Tablet PO (08:42)
[2021-05-04] MEDS: sodium bicarbonate 650 mg Tablet PO ×3 (08:42→20:45)
[2021-05-04] MEDS: lactobacillus 1 Tablet 1 TAB PO ×2 (08:42→17:24)
--- NOTE | 2021-05-04 08:43 | PC.NURSE ---
loose bm with streaks of red noted pericare done linen change
--- NOTE | 2021-05-04 09:19 | PM.PN ---
Subjective Subjective: Interval history: She reports she is feeling better. Denies chest pain or pressure. Occasional cough. No phlegm production. No hemoptysis. Not feeling dizzy. A little bit, but finds the food is not the best tasting for her. Got somewhat nauseated after oral potassium. Vitals/I&O/Wt Last Vital Signs Temp 97.2 F L 05/04/21 04:00 Pulse 107 H 05/04/21 08:30 Resp 26 H 05/04/21 08:30 BP 95/72 05/04/21 08:30 Pulse Ox 93 05/04/21 08:30 05/03/21 05/04/21 05/04/21 22:59 06:59 14:59 Intake Total 652.258 / 855.204 671.125 / 1526.329 250 / 250 Output Total 1950 / 1950 475 / 2425 Balance -1297.742 / -1094.796 196.125 / -898.671 250 / 250 Weight last 48 hrs Weight 74.928 kg Weight 76.204 kg Weight 75.977 kg Weight 71.214 kg Physical Exam Const: COMMON NORMALS: no acute distress, patient oriented x3 and alert GENERAL APPEARANCE: cooperative and comfortable ORIENTATION/CONSCIOUSNESS: Yes awake HENMT: COMMON NORMALS: oropharynx normal Neck/C-Spine: COMMON NORMALS: no JVD Resp: COMMON NORMALS: normal respiratory effort and clear to auscultation bilaterally AUSCULTATION: clear to auscultation bilaterally Cardio: COMMON NORMALS: no JVD, regular rhythm, S1 normal heart sound present, S2 normal heart sound present and No murmurs present (Cardio) RHYTHM: regular rhythm HEART SOUNDS: S1 normal heart sound present and S2 normal heart sound present GI: COMMON NORMALS: Normal to inspection, nondistended, normoactive bowel sounds present, Soft to palpation and non-tender PALPATION: Yes Soft to palpation Extremity: COMMON NORMALS: no joint enlargement and no pedal edema Neuro: COMMON NORMALS: patient oriented x3 and moves all extremities SENSORIUM/ORIENTATION: Yes alert Skin: COMMON NORMALS: no rashes or lesions noted GENERAL SKIN EXAM: no rashes or lesions noted Urinary Catheter Management^: Rothman: Cath Placed During This Visit: yes Reason for Continuing Indwelling Catheter: Accurate Measurement of Urinary Output in Critically Ill Patients Urinary Catheter Date of Insertion: 05/02/21 Urinary Catheter Time of Insertion: 21:14 Data : 05/04/21 02:10 05/04/21 02:10 Micro: Microbiology 05/02/21 18:52 Blood Culture - Preliminary Blood NEGATIVE TO DATE 05/02/21 18:20 Blood Culture - Preliminary Blood NEGATIVE TO DATE A&P Assessment and plan (1) Obstructive cardiovascular shock: Trending down on Levophed. Currently down to 6 MCG, blood pressure looks good, and likely will be able to wean down further. Improving gradually. Down to 10mg Levophed. Continue to wean as tolerating. Repeat LA decreasing Multiorgan injury: Improving with improving YORDY, improving liver parameters. Noted troponin elevation with right heart strain. Denies chest pain. Echocardiogram not good quality, grossly LV systolic function appears normal. Small pericardial effusion. Monitor kidney, liver parameters. Denies chest pain. Monitor for decompensated heart failure. Avoid fluid overload. Status: Acute (2) Acute massive pulmonary embolism: Status post TPA VTE noted in right lower extremity. Status post IVC filter placement 05/03. Continues on heparin drip without bolus. Some streaks of blood noted and loose stools. Hemoglobin with mild decline to 11. Discussed additional risks of bleeding, in case worsening of bleeding, may not be able to tolerate anticoagulation. She has had a colonoscopy before without identifiable cause. Monitor. Platelets today are better up to 121,000. Status: Acute (3) Pulmonary hypertension: Present for some time exacerbated by above Status: Acute (4) Bilateral breast cancer: Has been on anastrozole, follows with Dr. Rascon She told me yesterday in case she was having further complications with therapy she was considering stopping cancer treatments knowing that cancer might come back. Status: Acute Qualifiers: Breast location: unspecified site of breast Estrogen receptor status: positive Patient sex: female Qualified Code(s): C50.911 - Malignant neoplasm of unspecified site of right female breast; C50.912 - Malignant neoplasm of unspecified site of left female breast; Z17.0 - Estrogen receptor positive status [ER+] (5) Chronic diarrhea: Status: Chronic Additional A&P Information Blood streaks in stool: Monitor stools, hemoglobin. Hypokalemia: Replaced. She asks for IV replacement if possible if further replacement needed. Hypomagnesemia: Replaced. Abnormal urinalysis: So far no urinary symptoms. Monitor. Repeat as needed. Right lower extremity DVT Swollen right lower extremity: Improved Port-A-Cath Musculoskeletal chest pain from prior surgeries, Port-A-Cath in addition to pain from embolism/shock Attestations Medical Necessity Statement*: Continue admission for assessment management of shock, weaning of pressors, hemodynamically significant PE, in the setting of thrombocytopenia, blood streaks in stool, multiple organ injury, now improving, with underlying pulmonary hypertension at risk of right heart failure, replacement of severe electrolyte deficiencies. Critical Care Time: In addition to noncritical issues 38 minutes critical care time spent on assessment management of shock, hemodynamic support with pressor, pressor adjustment, volume status assessment, reassessment of multiple organ injury, anticoagulation in the setting of thrombocytopenia, reassessment of hemoglobin, discussed with call center operator, nursing staff, patient. Coding Level of Care Code Acute Art Glass Designer for Dawood Barrientos Diagnoses Obstructive cardiovascular shock R57.8 Acute massive pulmonary embolism I26.99 Pulmonary hypertension I27.20 Bilateral breast cancer C50.911; C50.912; Z17.0 Breast location: unspecified site of breast Estrogen receptor status: positive Patient sex: female Chronic diarrhea K52.9
[2021-05-04 11:22] LABS: Anion Gap 12.8 (5-19); Blood Urea Nitrogen 18 mg/dL (8-23); Calcium 7.3 mg/dL (8.5-10.5); Carbon Dioxide 21 mmol/L (22-29); Chloride 102 mmol/L (98-107); Glomerular Filtration Rate 40.6 mL/min (90-130); Glucose 106 mg/dL (65-115); Magnesium 1.5 mg/dL (1.7-2.3); Osmolality Calculated 276 mOsm/kg (285-295); Potassium 3.8 mmol/L (3.5-5.1); Sodium 132 mmol/L (136-145)
[2021-05-04 16:46] LABS: Partial Thromboplastin Time 55.4 SECONDS (23.9-36.7)
--- NOTE | 2021-05-04 20:54 | PM.PN ---
Subjective Subjective: Interval history: Patient is overall doing well. Underwent IVC filter placement with Dr Fernando yesterday. Femoral access site is normal Vitals/I&O/Wt Last Vital Signs Temp 98 F 05/04/21 14:00 Pulse 101 H 05/04/21 18:30 Resp 20 H 05/04/21 18:30 BP 86/55 05/04/21 18:30 Pulse Ox 96 05/04/21 18:30 05/04/21 05/04/21 05/04/21 06:59 14:59 22:59 Intake Total 671.125 / 1526.329 548.819 / 548.819 190.830 / 739.649 Output Total 475 / 2425 250 / 250 Balance 196.125 / -898.671 548.819 / 548.819 -59.170 / 489.649 Weight last 48 hrs Weight 165 lb 3 oz Weight 168 lb Weight 167 lb 8 oz Physical Exam Narrative: EXAM NARRATIVE: GENERAL: Patient is alert, awake and oriented x3. Not in distress NECK: No jugular vein distension. HEENT: No cyanosis. No icterus. No pallor. HEART: Regular S1 and S2. No murmur, rub or gallop. LUNGS: Decreased breath bilaterally. ABDOMEN: Soft, nontender and nondistended. Positive bowel sounds. No guarding, rebound or tenderness. CENTRAL NERVOUS SYSTEM: Grossly nonfocal. EXTREMITIES: Lower extremities without edema bilaterally. Urinary Catheter Management^: Rothman: Cath Placed During This Visit: yes Reason for Continuing Indwelling Catheter: Accurate Measurement of Urinary Output in Critically Ill Patients Urinary Catheter Date of Insertion: 05/02/21 Urinary Catheter Time of Insertion: 21:14 Data : 05/05/21 04:13 05/05/21 04:13 Micro: Microbiology 05/02/21 18:52 Blood Culture - Preliminary Blood NEGATIVE TO DATE 05/02/21 18:20 Blood Culture - Preliminary Blood NEGATIVE TO DATE A&P Assessment and plan (1) Chest pressure: Currently denies any chest pain. Status: Acute (2) Pulmonary embolism: Patient had TPA however on anticoagulation GI bleed noted. Patient has underlying malignancy with hypercoagulable state. She has a right dilated ventricle acute on chronic right-sided failure with pulmonary hypertension. She has right popliteal and great saphenous vein DVT at the junction of saphenous and femoral vein. Given possible GI bleed and the need for anticoagulation, IVC filter was successfully placed yesterday. She has done well after. Femoral access site is normal. No more GI bleed episodes. Hemoglobin is stable. Status: Acute Qualifiers: Pulmonary embolism type: unspecified Chronicity: acute Acute cor pulmonale presence: unspecified Qualified Code(s): I26.99 - Other pulmonary embolism without acute cor pulmonale (3) Hypotension: Patient is on pressor and slowly improving. Status: Acute Qualifiers: Hypotension type: unspecified hypotension type Qualified Code(s): I95.9 - Hypotension, unspecified Attestations Medical Necessity Statement*: Care expected to cross 2 midnights. Coding Level of Care Code Acute Banquet Kitchen Supervisor for Dawood Barrientos Diagnoses Chest pressure R07.89 Pulmonary embolism I26.99 Pulmonary embolism type: unspecified Chronicity: acute Acute cor pulmonale presence: unspecified Hypotension I95.9 Hypotension type: unspecified hypotension type
[2021-05-04] MEDS: temazepam 15 mg Capsule PO (23:38)
[2021-05-04] MEDS: heparin drip 25,000 UNIT/500 ML PREMIX 16 UNIT IV (23:43)
[2021-05-05] VITALS (49 sets, daily range): BP systolic 62–114; BP diastolic 45–79; PULSE 89–108; RESP 19–36; TEMP 36.7–36.8; O2SAT 85–97; BMI 27.5
[2021-05-05 05:05] LABS: Basophils # 0.1 10^3/uL (0.0-0.1); Basophils % 1.1 %; Eosinophils # 0.1 10^3/uL (0.0-0.8); Eosinophils % 1.4 %; Hematocrit 34.8 % (37.0-47.0); Hemoglobin 11.2 g/dL (11.5-15.3); Mean Corpuscular HGB Conc 32.2 g/dL (30.0-36.0); Mean Corpuscular Hemoglobin 34.7 pg (28.0-34.0); Mean Corpuscular Volume 107.7 fL (81-99); Mean Platelet Volume 11.5 fL (7.4-10.4); Monocytes # 0.7 10^3/uL (0.2-0.9); Monocytes % 10.6 %; Neutrophils # 4.38 10^3/uL (1.8-7.7); Neutrophils % 70.3 %; Nucleated Red Blood Cells % 0 %; Platelet Count 104 10^3/cmm (130-400); Red Blood Count 3.23 10^6/uL (4.1-5.3); Red Cell Distribution Width 16.1 % (12.1-15.1); White Blood Count 6.2 10^3/uL (4.0-10.0)
[2021-05-05 05:14] LABS: Alanine Aminotransferase 68 U/L (0-33); Albumin Level 1.8 g/dL (3.5-5.2); Alkaline Phosphatase 132 IU/L (35-105); Anion Gap 10.5 (5-19); Aspartate Amino Transferase 96 U/L (0-32); Blood Urea Nitrogen 19 mg/dL (8-23); Calcium 7.6 mg/dL (8.5-10.5); Carbon Dioxide 23 mmol/L (22-29); Chloride 103 mmol/L (98-107); Globulin 3.2 g/dL (1.3-4.6); Glomerular Filtration Rate 44.5 mL/min (90-130); Glucose 106 mg/dL (65-115); Magnesium 1.8 mg/dL (1.7-2.3); Osmolality Calculated 279 mOsm/kg (285-295); Potassium 3.5 mmol/L (3.5-5.1); Sodium 133 mmol/L (136-145); Total Bilirubin 0.5 mg/dL (0.15-1.2)
[2021-05-05 05:55] LABS: Partial Thromboplastin Time 49.7 SECONDS (23.9-36.7)
[2021-05-05] MEDS: lactobacillus 1 Tablet 1 TAB PO ×2 (08:16→17:03)
[2021-05-05] MEDS: sodium bicarbonate 650 mg Tablet PO ×2 (08:16→15:02)
[2021-05-05] MEDS: pantoprazole DR 40 mg Tablet PO (08:16)
--- NOTE | 2021-05-05 09:08 | P.PN_ITS ---
Subjective Subjective: Interval history: Overall she states she is doing better. She says her breathing is comfortable. Denies chest pain. She is still had loose stool, most recently denies any blood streaks in there. Denies abdominal pain. Vitals/I&O/Wt Last Vital Signs Temp 98.0 F 05/05/21 07:30 Pulse 92 05/05/21 08:00 Resp 22 H 05/05/21 08:00 BP 93/63 05/05/21 08:00 Pulse Ox 95 05/05/21 08:00 05/04/21 05/05/21 05/05/21 22:59 06:59 14:59 Intake Total 255.181 / 804.000 558.685 / 1362.685 24.003 / 24.003 Output Total 250 / 250 225 / 475 Balance 5.181 / 554.000 333.685 / 887.685 24.003 / 24.003 Weight last 48 hrs Weight 77.337 kg Weight 74.928 kg Physical Exam Const: COMMON NORMALS: no acute distress, patient oriented x3 and alert GENERAL APPEARANCE: cooperative and comfortable ORIENTATION/CONSCIOUSNESS: Yes awake HENMT: COMMON NORMALS: oropharynx normal Neck/C-Spine: COMMON NORMALS: no JVD Resp: COMMON NORMALS: normal respiratory effort and clear to auscultation bilaterally AUSCULTATION: clear to auscultation bilaterally Cardio: COMMON NORMALS: no JVD, regular rhythm, S1 normal heart sound present, S2 normal heart sound present and No murmurs present (Cardio) RHYTHM: regular rhythm HEART SOUNDS: S1 normal heart sound present and S2 normal heart sound present GI: COMMON NORMALS: Normal to inspection, nondistended, normoactive bowel sounds present, Soft to palpation and non-tender PALPATION: Yes Soft to palpation Extremity: COMMON NORMALS: no joint enlargement and no pedal edema GENERAL: Yes edema (1+) Neuro: COMMON NORMALS: patient oriented x3 and moves all extremities SENSORIUM/ORIENTATION: Yes alert Skin: COMMON NORMALS: no rashes or lesions noted GENERAL SKIN EXAM: no rashes or lesions noted Urinary Catheter Management^: Rothman: Cath Placed During This Visit: yes Reason for Continuing Indwelling Catheter: Accurate Measurement of Urinary Outpu t in Critically Ill Patients Urinary Catheter Date of Insertion: 05/02/21 Urinary Catheter Time of Insertion: 21:14 Data : 05/05/21 04:13 05/05/21 04:13 A&P Assessment and plan (1) Obstructive cardiovascular shock: Has been weaning down on Levophed and was transiently off of it last night but had to be restarted. Currently down to 3.5 MCG and hopefully should be able to wean down further and wean off. Multiorgan injury improving with improving YORDY, improving liver parameters. Noted troponin elevation with right heart strain. Denies chest pain. Ech ocardiogram not good quality, grossly LV systolic function appears normal. Small pericardial effusion. Monitor kidney, liver parameters. Denies chest pain. Monitor for decompensated heart failure. Avoid fluid overload. Status: Acute (2) Acute massive pulmonary embolism: Status post TPA VTE noted in right lower extremity. Status post IVC filter placement 05/03. Continues on heparin drip without bolus. Some streaks of blood noted and loose stools. Hemoglobin with mild decline stabilized at 11. Monitor. Platelets fluctuating but better up to 104,000. Status: Acute (3) Pulmonary hypertension: Present for some time exacerbated by above Status: Acute (4) Bilateral breast cancer: Has been on anastrozole, follows with Dr. Rascon She told me yesterday in case she was having further complications with therapy she was considering stopping cancer treatments knowing that cancer might come back. Status: Acute Qualifiers: Breast location: unspecified site of breast Estrogen receptor status: positive Patient sex: female Qualified Code(s): C50.911 - Malignant neoplasm of unspecified site of right female breast; C50.912 - Malignant neoplasm of unspecified site of left female breast; Z17.0 - Estrogen receptor positive status [ER+] (5) Chronic diarrhea: Check C diff. Add fiber. Status: Chronic Additional A&P Information Blood streaks in stool: So far better. Monitor stools, hemoglobin. Hypokalemia: Replaced. She asks for IV replacement if possible if further replacement needed. Hypomagnesemia: Replaced. Abnormal urinalysis: So far no urinary symptoms. Monitor. Repeat as needed. Right lower extremity DVT Swollen right lower extremity: Improved Port-A-Cath Musculoskeletal chest pain from prior surgeries, Port-A-Cath in addition to pain from embolism/shock Attestations Medical Necessity Statement*: Continue admission for hemodynamic support in obstructive shock, hemodynamically significant PE, improving multiple organ injury. Coding Level of Care Code Acute Tar [employer] Ammonia Pump Operator for Chg Fwd Diagnoses Obstructive cardiovascular shock R57.8 Acute massive pulmonary embolism I26.99 Pulmonary hypertension I27.20 Bilateral breast cancer C50.911; C50.912; Z17.0 Breast location: unspecified site of breast Estrogen receptor status: positive Patient sex: female Chronic diarrhea K52.9
--- NOTE | 2021-05-05 14:27 | PC.SOCIAL ---
IMM Update Pg.2 of IMM updated and reviewed with patient and family at bedside, who verbalized understanding. Copy provided.
[2021-05-05 19:09] LABS: Partial Thromboplastin Time 57.2 SECONDS (23.9-36.7)
--- NOTE | 2021-05-05 19:30 | P.PN_ITS ---
Subjective Subjective: Interval history: The patient is doing well. On minimal amount of intermittent pressor support. All blood works are getting better. Medications: Reviewed: Yes Vitals/I&O/Wt Last Vital Signs Temp 98.1 F 05/05/21 17:00 Pulse 99 05/05/21 18:30 Resp 25 H 05/05/21 18:30 BP 87/63 05/05/21 18:30 Pulse Ox 95 05/05/21 18:00 05/05/21 05/05/21 05/05/21 06:59 14:59 22:59 Intake Total 558.685 / 1362.685 405.184 / 405.184 Output Total 225 / 475 225 / 225 Balance 333.685 / 887.685 405.184 / 405.184 -225 / 180.184 Weight last 48 hrs Weight 170 lb 8 oz Weight 165 lb 3 oz Physical Exam Narrative: EXAM NARRATIVE: General: Patient is awake alert and oriented, in no distress Neck: Positive JVD Respiratory: Auscultation: Reduced breath sound bilaterally, no crackles wheezing or rhonchi Cardiovascular: Tachycardia, S1-S2 present, pansystolic murmur in the tricuspid area, positive right ventricular heave, no peripheral edema Abdomen: Soft, nontender, nondistended, positive bowel sound Musculoskeletal: No obvious joint deformity Skin: No rash Neuro: Mental status is normal, no gross cranial nerve deficit, normal motor and coordination. Urinary Catheter Management^: Rothman: Cath Placed During This Visit: yes Reason for Continuing Indwelling Catheter: Accurate Measurement of Urinary Output in Critically Ill Patients Urinary Catheter Date of Insertion: 05/02/21 Urinary Catheter Time of Insertion: 21:14 Data : 05/05/21 04:13 05/05/21 04:13 Micro: Microbiology 05/05/21 09:30 C.difficile Toxin B Gene (PCR) - Final Stool Attestation for Other Data: I personally reviewed and interpreted the following: Other data: I have reviewed the patient's laboratory microbiologic and radiologic data. The C. difficile PCR was negative A&P Assessment and plan (1) Acute massive pulmonary embolism: The patient has done well through the acute phase. The patient can be started on oral anticoagulation at this time. She is requiring very minimal amount of pressor support. If she continues to require that, we can start the patient on small dose of midodrine. Status: Acute (2) Pulmonary hypertension: The patient likely has significant pulmonary hypertension. The etiology of this is unclear to me. Once the patient is out of the acute phase, she will need further work-up for this pulmonary hypertension in the future. I am starting the patient on Lasix 20 mg twice a day. This could be adjusted based on her urine output and switch to once a day regimen. Status: Acute (3) Obstructive cardiovascular shock: The patient is status post TPA. Target a map of 60 or systolic blood pressure of 90. Status: Acute (4) Metabolic acidosis: This is resolved. I am discontinuing the bicarb supplementation today. Status: Acute (5) Bilateral breast cancer: The patient is under the care of Dr. Rascon for the metastatic breast cancer. I will follow up with her as outpatient. Status: Acute Attestations Medical Necessity Statement*: Will defer to the primary team Coding Level of Care Code Acute Supervisor [employer] for Dawood Kernsd Diagnoses Acute massive pulmonary embolism I26.99 Pulmonary hypertension I27.20 Obstructive cardiovascular shock R57.8 Metabolic acidosis E87.2 Bilateral breast cancer C50.911; C50.912
[2021-05-05] MEDS: FUROsemide 20 mg Tablet PO (20:42)
[2021-05-05] MEDS: acetaminophen 325 mg Tablet 650 MG PO (20:44)
[2021-05-05] MEDS: temazepam 15 mg Capsule PO (20:44)
[2021-05-06] VITALS (32 sets, daily range): BP systolic 76–103; BP diastolic 54–70; PULSE 81–107; RESP 14–33; TEMP 36.4–37.1; O2SAT 88–96; BMI 27.9
[2021-05-06 03:41] LABS: Basophils # 0.1 10^3/uL (0.0-0.1); Basophils % 1.7 %; Eosinophils # 0.2 10^3/uL (0.0-0.8); Eosinophils % 3.5 %; Hematocrit 35.8 % (37.0-47.0); Hemoglobin 11.2 g/dL (11.5-15.3); Lymphocytes % 18.5 %; Mean Corpuscular HGB Conc 31.3 g/dL (30.0-36.0); Mean Corpuscular Hemoglobin 33.9 pg (28.0-34.0); Mean Corpuscular Volume 108.5 fL (81-99); Mean Platelet Volume 10.8 fL (7.4-10.4); Monocytes # 0.5 10^3/uL (0.2-0.9); Monocytes % 8.4 %; Neutrophils # 3.68 10^3/uL (1.8-7.7); Neutrophils % 67.5 %; Nucleated Red Blood Cells % 0 %; Platelet Count 92 10^3/cmm (130-400); Red Cell Distribution Width 16.1 % (12.1-15.1); White Blood Count 5.5 10^3/uL (4.0-10.0)
[2021-05-06 04:00] LABS: Partial Thromboplastin Time 61.7 SECONDS (23.9-36.7)
[2021-05-06 04:05] LABS: Alanine Aminotransferase 58 U/L (0-33); Albumin Level 1.8 g/dL (3.5-5.2); Alkaline Phosphatase 213 IU/L (35-105); Aspartate Amino Transferase 70 U/L (0-32); Blood Urea Nitrogen 15 mg/dL (8-23); Calcium 7.7 mg/dL (8.5-10.5); Carbon Dioxide 26 mmol/L (22-29); Chloride 103 mmol/L (98-107); Globulin 3.6 g/dL (1.3-4.6); Glucose 93 mg/dL (65-115); Osmolality Calculated 285 mOsm/kg (285-295); Sodium 137 mmol/L (136-145); Total Bilirubin 0.4 mg/dL (0.15-1.2); Total Protein 5.4 g/dL (6.6-8.7)
[2021-05-06 04:08] LABS: Anion Gap 11.3 (5-19); Potassium 3.3 mmol/L (3.5-5.1)
[2021-05-06] MEDS: heparin drip 25,000 UNIT/500 ML PREMIX 18 UNIT IV (04:30)
[2021-05-06] MEDS: lactobacillus 1 Tablet 1 TAB PO ×2 (10:06→17:44)
[2021-05-06] MEDS: pantoprazole DR 40 mg Tablet PO (10:07)
--- NOTE | 2021-05-06 10:46 | PC.NURSE ---
0800. awakened easily for breakfast.
--- NOTE | 2021-05-06 10:47 | PC.NURSE ---
0900 2 bowel movements after breakfast, green in color and mucoid.
[2021-05-06] MEDS: loperamide 2 mg Capsule 4 MG PO (11:34)
--- NOTE | 2021-05-06 13:02 | PC.CHAP ---
Pastoral Care Encounter/Spiritual Assessment Type of Contact [] Declined dental assistant medical assistant visit [] Patient/Family/Request visit [] Outpatient visit [x] Follow-up visit [] Physician referral [] Code/Alert [] Routine visit [] Staff referral [] Actively dying [] Patient sleeping [] Family support [] [] Out of room [] Palliative care [] [] Receiving care in room [] Pre-surgical visit [] Trauma [] Long length of stay [] ICU visit [] Other: Relational/Emotional Strength [] Patient feels connected with others/family/visitors/staff [] Distress [] Loneliness/isolation [] Abandonment Spirituality of Patient [] Person of Stormy [] Attends Restoration of their Stormy [] Believes in Prayer [] Reads Bible or Sikh materials [] There are Spiritual issues to be addressed Medical Advisor Interventions [] Prayer [] Active listening [] Non-anxious presence [] Spiritual/emotional support [] Crisis/trauma care [] Spiritual counseling [] Bereavement support [] Provided bereavement packet [] Provided Bible/devotional materials [] Provided toy/stuffed animal, coloring book to patient or family member [] Provided Communion [] Anointing/[place] [] Salvation [] Completed spiritual assessment [] Other: Impact on Illness or Injury [] Angry [] Fearful [] Anxious [] Often cries [] Exhaustion [] Unable to work [] Unable to attend anabaptist [] Unable to walk/stand [] Unable to read [] Unable to drive [] Unable to eat/drink [] Unable to sleep [] Unable to be with family [] Patient intubated [] Other: Summary Time spent with patient
--- NOTE | 2021-05-06 14:01 | PM.PN ---
Subjective Subjective: Interval history: Is a 71-year-old female admitted to the ICU after a pulmonary malaise and status post TPA. Patient is noted to be fluid overloaded. Also had YORDY likely secondary to ATN as well as GI bleed. He does follow with oncology with history of metastatic breast cancer. She does have complaints of diarrhea today. Otherwise feels okay. Vitals/I&O/Wt Last Vital Signs Temp 98.0 F 05/06/21 12:00 Pulse 101 H 05/06/21 12:00 Resp 24 H 05/06/21 12:00 BP 99/65 05/06/21 12:00 Pulse Ox 95 05/06/21 12:00 05/05/21 05/06/21 05/06/21 22:59 06:59 14:59 Intake Total 73.279 / 478.463 272.4 / 750.863 354.3 / 354.3 Output Total 225 / 225 900 / 1125 600 / 600 Balance -151.721 / 253.463 -627.6 / -374.137 -245.7 / -245.7 Weight last 48 hrs Weight 173 lb Weight 170 lb 8 oz Physical Exam Const: COMMON NORMALS: no acute distress Neck/C-Spine: COMMON NORMALS: no JVD Resp: COMMON NORMALS: normal respiratory effort and No retractions Cardio: COMMON NORMALS: no JVD and regular rate RATE: regular rate GI: COMMON NORMALS: Normal to inspection, nondistended, normoactive bowel sounds present and Soft to palpation PALPATION: Yes Soft to palpation Extremity: COMMON NORMALS: normal to inspection and full ROM Urinary Catheter Management^: Rothman: Cath Placed During This Visit: yes Reason for Continuing Indwelling Catheter: Accurate Measurement of Urinary Output in Critically Ill Patients Urinary Catheter Date of Insertion: 05/02/21 Urinary Catheter Time of Insertion: 21:14 Data : 05/06/21 03:33 05/06/21 03:33 Micro: Microbiology 05/05/21 09:30 C.difficile Toxin B Gene (PCR) - Final Stool A&P Assessment and plan (1) Pulmonary embolism: Status post TPA treatment. IVC filter placed. Hemoglobin as well as stool for blood Status: Acute Qualifiers: Pulmonary embolism type: unspecified Chronicity: acute Acute cor pulmonale presence: unspecified Qualified Code(s): I26.99 - Other pulmonary embolism without acute cor pulmonale (2) Bilateral breast cancer: Follows with oncology. Has been on anastrozole Status: Acute (3) Obstructive cardiovascular shock: Resolved Status: Acute (4) Pulmonary hypertension: Status: Acute (5) Chronic diarrhea: Negative for C. difficile add Imodium Status: Chronic (6) Hypotension: Status: Acute Qualifiers: Hypotension type: unspecified hypotension type Qualified Code(s): I95.9 - Hypotension, unspecified Attestations Medical Necessity Statement*: Bee Zheng's hospital stay will require greater than 2 midnights for pe Coding Level of Care Code Acute Childcare Administrator for Chg Fwd Diagnoses Pulmonary embolism I26.99 Pulmonary embolism type: unspecified Chronicity: acute Acute cor pulmonale presence: unspecified Bilateral breast cancer C50.911; C50.912 Obstructive cardiovascular shock R57.8 Pulmonary hypertension I27.20 Chronic diarrhea K52.9 Hypotension I95.9 Hypotension type: unspecified hypotension type
--- NOTE | 2021-05-06 15:56 | PC.NUTR ---
Nutrition follow up: Discussed meal preferences and supplements. Pt refused supplements at this time. Requesting grits and grayson in AM. Likes desserts. Recommend to provide pt preferences as appropriate and encourage po intakes of meals. Notifed Dr. Dawson of wt trending up--likely fluid related as meal intakes poor. See RD assessments for further details.
[2021-05-06 16:27] LABS: Partial Thromboplastin Time 54.2 SECONDS (23.9-36.7)
[2021-05-06 18:34] LABS: Blood Urea Nitrogen 14 mg/dL (8-23); Calcium 7.5 mg/dL (8.5-10.5); Carbon Dioxide 23 mmol/L (22-29); Chloride 102 mmol/L (98-107); Glomerular Filtration Rate 71.1 mL/min (90-130); Glucose 111 mg/dL (65-115); Osmolality Calculated 277 mOsm/kg (285-295); Sodium 133 mmol/L (136-145)
[2021-05-06 18:35] LABS: Anion Gap 11.3 (5-19); Potassium 3.3 mmol/L (3.5-5.1)
[2021-05-06] MEDS: apixaban 5 mg Tablet 10 MG PO (21:11)
[2021-05-07] VITALS (33 sets, daily range): BP systolic 80–111; BP diastolic 53–85; PULSE 90–112; RESP 18–36; TEMP 36.6–36.7; O2SAT 86–96
[2021-05-07] MEDS: acetaminophen 325 mg Tablet 650 MG PO ×2 (01:49→15:21)
[2021-05-07 04:34] LABS: Alanine Aminotransferase 43 U/L (0-33); Albumin Level 1.8 g/dL (3.5-5.2); Alkaline Phosphatase 214 IU/L (35-105); Anion Gap 10.1 (5-19); Aspartate Amino Transferase 41 U/L (0-32); Blood Urea Nitrogen 15 mg/dL (8-23); Calcium 7.7 mg/dL (8.5-10.5); Carbon Dioxide 27 mmol/L (22-29); Chloride 105 mmol/L (98-107); Globulin 3.7 g/dL (1.3-4.6); Glomerular Filtration Rate 62.1 mL/min (90-130); Glucose 105 mg/dL (65-115); Osmolality Calculated 289 mOsm/kg (285-295); Potassium 3.1 mmol/L (3.5-5.1); Sodium 139 mmol/L (136-145); Total Bilirubin 0.4 mg/dL (0.15-1.2); Total Protein 5.5 g/dL (6.6-8.7)
--- NOTE | 2021-05-07 07:00 | PC.NURSE ---
bedside report received from Pinky BOURGEOIS. Levophed currently at 2mcg/min infusing through port access with no difficulty.
[2021-05-07] MEDS: FUROsemide 20 mg Tablet PO (08:17)
[2021-05-07] MEDS: apixaban 5 mg Tablet 10 MG PO ×2 (08:17→20:29)
[2021-05-07] MEDS: lactobacillus 1 Tablet 1 TAB PO ×2 (08:17→17:37)
[2021-05-07] MEDS: pantoprazole DR 40 mg Tablet PO (08:17)
[2021-05-07] MEDS: potassium chloride ER 20 mEq Tablet 40 MEQ PO (10:03)
[2021-05-07] MEDS: loperamide 2 mg Capsule 4 MG PO (10:03)
--- NOTE | 2021-05-07 11:15 | PC.SOCIAL ---
IMM Update Updated pt of their medicare rights. Verbalized understanding. Gave pt a copy and placed initialed, timed and dated copy in chart.
--- NOTE | 2021-05-07 17:02 | P.PN_ITS ---
Subjective Subjective: Interval history: 71-year-old female admitted to the ICU after a pulmonary emboli and status post TPA. Patient is noted to be fluid overloaded. Also had YORDY likely secondary to ATN as well as GI bleed. she does follow with oncology with history of metastatic breast cancer. wants to go home on O2 denies cp, or fevers Medications: Reviewed: Yes Vitals/I&O/Wt Last Vital Signs Temp 97.8 F 05/07/21 14:00 Pulse 107 H 05/07/21 14:00 Resp 19 H 05/07/21 14:00 BP 85/64 05/07/21 14:00 Pulse Ox 94 05/07/21 14:00 05/07/21 05/07/21 05/07/21 06:59 14:59 22:59 Intake Total 160 / 160 Output Total 100 / 1150 1000 / 1000 Balance -100 / -466.751 -840 / -840 Weight last 48 hrs Weight 173 lb Physical Exam Const: COMMON NORMALS: no acute distress and patient oriented x3 Resp: COMMON NORMALS: normal respiratory effort and No retractions Cardio: COMMON NORMALS: regular rate and regular rhythm RATE: regular rate RHYTHM: regular rhythm GI: COMMON NORMALS: Normal to inspection, nondistended, normoactive bowel sounds present and Soft to palpation PALPATION: Yes Soft to palpation Neuro: COMMON NORMALS: patient oriented x3 Psych: COMMON NORMALS: mental status grossly normal Urinary Catheter Management^: Rothman: Cath Placed During This Visit: yes Reason for Continuing Indwelling Catheter: Accurate Measurement of Urinary Output in Critically Ill Patients Urinary Catheter Date of Insertion: 05/02/21 Urinary Catheter Time of Insertion: 21:14 Data : 05/06/21 03:33 05/07/21 03:15 A&P Assessment and plan (1) Pulmonary embolism: stable IVC filter placed continue eliquis Status: Acute Qualifiers: Pulmonary embolism type: unspecified Chronicity: acute Acute cor pulmonale presence: unspecified Qualified Code(s): I26.99 - Other pulmonary embolism without acute cor pulmonale (2) Obstructive cardiovascular shock: resolved Status: Acute (3) Bilateral breast cancer: followup with Oncology Status: Acute (4) Hypotension: resolved Status: Acute Qualifiers: Hypotension type: unspecified hypotension type Qualified Code(s): I95.9 - Hypotension, unspecified Attestations Medical Necessity Statement*: Bee Zheng's hospital stay will require greater than 2 midnights for hypoxemia Coding Level of Care Code Acute Rn Plastic Surgery for Chg Fwd Diagnoses Pulmonary embolism I26.99 Pulmonary embolism type: unspecified Chronicity: acute Acute cor pulmonale presence: unspecified Obstructive cardiovascular shock R57.8 Bilateral breast cancer C50.911; C50.912 Hypotension I95.9 Hypotension type: unspecified hypotension type
[2021-05-08] VITALS (26 sets, daily range): BP systolic 88–146; BP diastolic 53–112; PULSE 95–117; RESP 12–27; TEMP 36.4–36.9; O2SAT 91–98
[2021-05-08] MEDS: pantoprazole DR 40 mg Tablet PO (08:38)
[2021-05-08] MEDS: FUROsemide 20 mg Tablet PO (08:38)
[2021-05-08] MEDS: lactobacillus 1 Tablet 1 TAB PO ×2 (08:38→18:35)
[2021-05-08] MEDS: apixaban 5 mg Tablet 10 MG PO ×2 (08:38→20:43)
--- NOTE | 2021-05-08 09:20 | PC.CHAP ---
Pastoral Care Encounter/Spiritual Assessment Type of Contact [] Declined computer programmer chief visit [] Patient/Family/Request visit [] Outpatient visit [] Follow-up visit [] Physician referral [] Code/Alert [x] Routine visit [] Staff referral [] Actively dying [] Patient sleeping [] Family support [] [] Out of room [] Palliative care [] [] Receiving care in room [] Pre-surgical visit [] Trauma [] Long length of stay [x] ICU visit [] Other: Relational/Emotional Strength [] Patient feels connected with others/family/visitors/staff [] Distress [] Loneliness/isolation [] Abandonment Spirituality of Patient [] Person of Stormy [] Attends Confucianist of their Stormy [] Believes in Prayer [] Reads Bible or Mandaen materials [] There are Spiritual issues to be addressed Pbx Inspector Interventions [x Prayer [x] Active listening [x Non-anxious presence [x] Spiritual/emotional support [] Crisis/trauma care [] Spiritual counseling [] Bereavement support [] Provided bereavement packet [] Provided Bible/devotional materials [] Provided toy/stuffed animal, coloring book to patient or family member [] Provided Communion [] Anointing/[place] [] Salvation [x] Completed spiritual assessment [] Other: Impact on Illness or Injury [] Angry [] Fearful [] Anxious [] Often cries [] Exhaustion [] Unable to work [] Unable to attend hindu [] Unable to walk/stand [] Unable to read [] Unable to drive [] Unable to eat/drink [] Unable to sleep [] Unable to be with family [] Patient intubated [] Other: Summary patient in quite mood, deep in thought. Time spent with patient 5 min
[2021-05-08 10:26] LABS: Basophils # 0.1 10^3/uL (0.0-0.1); Basophils % 1.5 %; Eosinophils # 0.1 10^3/uL (0.0-0.8); Eosinophils % 2.2 %; Hemoglobin 12.3 g/dL (11.5-15.3); Lymphocytes # 0.6 10^3/uL (0.8-4.8); Lymphocytes % 11.6 %; Mean Corpuscular HGB Conc 31.5 g/dL (30.0-36.0); Mean Corpuscular Hemoglobin 34.6 pg (28.0-34.0); Mean Corpuscular Volume 109.6 fL (81-99); Mean Platelet Volume 11.4 fL (7.4-10.4); Monocytes # 0.4 10^3/uL (0.2-0.9); Monocytes % 7.3 %; Neutrophils # 4.23 10^3/uL (1.8-7.7); Neutrophils % 76.9 %; Nucleated Red Blood Cells % 0 %; Platelet Count 97 10^3/cmm (130-400); Red Blood Count 3.56 10^6/uL (4.1-5.3); Red Cell Distribution Width 16.9 % (12.1-15.1); White Blood Count 5.5 10^3/uL (4.0-10.0)
[2021-05-08 10:41] LABS: Alanine Aminotransferase 31 U/L (0-33); Albumin Level 2.1 g/dL (3.5-5.2); Alkaline Phosphatase 212 IU/L (35-105); Anion Gap 12.8 (5-19); Aspartate Amino Transferase 25 U/L (0-32); Blood Urea Nitrogen 14 mg/dL (8-23); Calcium 7.9 mg/dL (8.5-10.5); Carbon Dioxide 25 mmol/L (22-29); Chloride 104 mmol/L (98-107); Globulin 3.5 g/dL (1.3-4.6); Glomerular Filtration Rate 49.2 mL/min (90-130); Glucose 83 mg/dL (65-115); Magnesium 1.1 mg/dL (1.7-2.3); Osmolality Calculated 286 mOsm/kg (285-295); Potassium 3.8 mmol/L (3.5-5.1); Sodium 138 mmol/L (136-145); Total Bilirubin 0.5 mg/dL (0.15-1.2); Total Protein 5.6 g/dL (6.6-8.7)
--- NOTE | 2021-05-08 15:14 | PM.PN ---
Subjective Subjective: Interval history: 71-year-old female admitted to the ICU after a pulmonary emboli and status post TPA. Patient is noted to be fluid overloaded. Also had YORDY likely secondary to ATN as well as GI bleed. she does follow with oncology with history of metastatic breast cancer. wants to go home on O2 denies cp, or fevers wants to go home Vitals/I&O/Wt Last Vital Signs Temp 97.9 F 05/08/21 10:00 Pulse 106 H 05/08/21 14:00 Resp 26 H 05/08/21 14:00 BP 146/109 05/08/21 14:00 Pulse Ox 95 05/08/21 14:00 05/08/21 05/08/21 05/08/21 06:59 14:59 22:59 Intake Total 150 / 413.061 120 / 120 Balance 150 / -886.939 120 / 120 Weight last 48 hrs Weight 167 lb Physical Exam Const: COMMON NORMALS: no acute distress and patient oriented x3 Resp: COMMON NORMALS: normal respiratory effort and No retractions Cardio: COMMON NORMALS: regular rate and regular rhythm RATE: regular rate RHYTHM: regular rhythm GI: COMMON NORMALS: Soft to palpation and non-tender PALPATION: Yes Soft to palpation Neuro: COMMON NORMALS: patient oriented x3 Psych: COMMON NORMALS: mental status grossly normal Urinary Catheter Management^: Rothman: Cath Placed During This Visit: yes Reason for Continuing Indwelling Catheter: Accurate Measurement of Urinary Output in Critically Ill Patients Urinary Catheter Date of Insertion: 05/02/21 Urinary Catheter Time of Insertion: 21:14 Data : 05/08/21 10:05 05/08/21 10:05 Micro: Microbiology 05/02/21 18:52 Blood Culture - Final Blood NO GROWTH AFTER 5 DAYS 05/02/21 18:20 Blood Culture - Final Blood NO GROWTH AFTER 5 DAYS A&P Assessment and plan (1) Pulmonary embolism: Status: Acute Qualifiers: Pulmonary embolism type: unspecified Chronicity: acute Acute cor pulmonale presence: unspecified Qualified Code(s): I26.99 - Other pulmonary embolism without acute cor pulmonale (2) Bilateral breast cancer: Status: Acute (3) Obstructive cardiovascular shock: Status: Acute (4) Pulmonary hypertension: Status: Acute Additional A&P Information #PE -- stable IVC filter placed continue eliquis #hypoxemia --taper O2 #weakness --PT #bilateral breast cancer --oncology followup Attestations Medical Necessity Statement*: Bee Zheng's hospital stay will require greater than 2 midnights for PE Coding Level of Care Code Acute Cardiac Rehabilitation Specialist for Chg Fwd Diagnoses Pulmonary embolism I26.99 Pulmonary embolism type: unspecified Chronicity: acute Acute cor pulmonale presence: unspecified Bilateral breast cancer C50.911; C50.912 Obstructive cardiovascular shock R57.8 Pulmonary hypertension I27.20
--- NOTE | 2021-05-08 21:25 | PC.NURSE ---
report called to [facility] on med surg, patient AO x4, follows commands, no c/o at this time
--- NOTE | 2021-05-08 22:02 | PC.NURSE ---
patient transferred to [facility] surg
[2021-05-09] VITALS (9 sets, daily range): BP systolic 80–110; BP diastolic 53–72; PULSE 91–100; RESP 16–20; TEMP 36.4–36.8; O2SAT 92–96
[2021-05-09 06:41] LABS: Basophils # 0.1 10^3/uL (0.0-0.1); Basophils % 1.7 %; Eosinophils # 0.1 10^3/uL (0.0-0.8); Eosinophils % 2.2 %; Hematocrit 36.2 % (37.0-47.0); Hemoglobin 11.4 g/dL (11.5-15.3); Lymphocytes # 0.5 10^3/uL (0.8-4.8); Lymphocytes % 13.3 %; Mean Corpuscular HGB Conc 31.5 g/dL (30.0-36.0); Mean Corpuscular Hemoglobin 34.3 pg (28.0-34.0); Mean Platelet Volume 11.6 fL (7.4-10.4); Monocytes # 0.4 10^3/uL (0.2-0.9); Monocytes % 9.8 %; Neutrophils # 2.96 10^3/uL (1.8-7.7); Neutrophils % 72.8 %; Nucleated Red Blood Cells % 0 %; Platelet Count 81 10^3/cmm (130-400); Red Blood Count 3.32 10^6/uL (4.1-5.3); Red Cell Distribution Width 17.1 % (12.1-15.1); White Blood Count 4.1 10^3/uL (4.0-10.0)
[2021-05-09 06:54] LABS: Alanine Aminotransferase 26 U/L (0-33); Albumin Level 1.9 g/dL (3.5-5.2); Alkaline Phosphatase 171 IU/L (35-105); Anion Gap 13.7 (5-19); Aspartate Amino Transferase 24 U/L (0-32); Blood Urea Nitrogen 15 mg/dL (8-23); Calcium 7.7 mg/dL (8.5-10.5); Carbon Dioxide 24 mmol/L (22-29); Chloride 104 mmol/L (98-107); Globulin 3.3 g/dL (1.3-4.6); Glomerular Filtration Rate 62.1 mL/min (90-130); Glucose 79 mg/dL (65-115); Osmolality Calculated 286 mOsm/kg (285-295); Potassium 3.7 mmol/L (3.5-5.1); Sodium 138 mmol/L (136-145); Total Bilirubin 0.5 mg/dL (0.15-1.2); Total Protein 5.2 g/dL (6.6-8.7)
[2021-05-09] MEDS: FUROsemide 20 mg Tablet PO (08:38)
[2021-05-09] MEDS: pantoprazole DR 40 mg Tablet PO ×2 (08:38→17:39)
[2021-05-09] MEDS: lactobacillus 1 Tablet 1 TAB PO ×2 (08:39→17:39)
[2021-05-09] MEDS: apixaban 5 mg Tablet 10 MG PO ×2 (08:39→20:11)
--- NOTE | 2021-05-09 09:06 | PC.SOCIAL ---
IMM Update Pg. 2 of IMM Updated and reviewed with patient, who verbalized understanding. Copy provided.
--- NOTE | 2021-05-09 10:00 | PC.NURSE ---
rcvd verbal order from Dr Dawson for stool culture. content writer put order in.
--- NOTE | 2021-05-09 11:02 | PM.PN ---
Subjective Subjective: Interval history: 71-year-old female admitted to the ICU after a pulmonary emboli and status post TPA. Patient is noted to be fluid overloaded. Also had YORDY likely secondary to ATN as well as GI bleed. she does follow with oncology with history of metastatic breast cancer. Overnight staff reported bloody stools. Stat H&H ordered. Patient does report having lightheadedness but states this is unchanged from before. Blood pressure has been stable. As well as heart rate. Her last colonoscopy is described as during September. Medications: Reviewed: Yes Vitals/I&O/Wt Last Vital Signs Temp 97.6 F 05/09/21 07:16 Pulse 98 05/09/21 07:16 Resp 20 H 05/09/21 07:16 BP 80/53 05/09/21 07:16 Pulse Ox 95 05/09/21 07:16 05/08/21 05/09/21 05/09/21 22:59 06:59 14:59 Intake Total 540 / 760 120 / 120 Output Total 300 / 300 350 / 650 Balance -300 / -80 190 / 110 120 / 120 Weight last 48 hrs Weight 167 lb 4.8 oz Weight 167 lb Physical Exam Const: COMMON NORMALS: no acute distress and patient oriented x3 Neck/C-Spine: COMMON NORMALS: no JVD Chest: OTHER: port Resp: COMMON NORMALS: normal respiratory effort and No retractions Cardio: COMMON NORMALS: no JVD, regular rate and regular rhythm RATE: regular rate RHYTHM: regular rhythm GI: COMMON NORMALS: Soft to palpation and non-tender PALPATION: Yes Soft to palpation Neuro: COMMON NORMALS: patient oriented x3 Psych: ATTITUDE: Yes calm and Yes engaged ACTIVITY/MOTOR BEHAVIOR: Yes appropriate eye contact Urinary Catheter Management^: Rothman: Cath Placed During This Visit: yes Reason for Continuing Indwelling Catheter: Accurate Measurement of Urinary Output in Critically Ill Patients Urinary Catheter Date of Insertion: 05/02/21 Urinary Catheter Time of Insertion: 21:14 Data : 05/09/21 05:45 05/09/21 05:45 A&P Assessment and plan (1) Metabolic acidosis: Status: Acute (2) Pulmonary embolism: Status: Acute Qualifiers: Pulmonary embolism type: unspecified Chronicity: acute Acute cor pulmonale presence: unspecified Qualified Code(s): I26.99 - Other pulmonary embolism without acute cor pulmonale (3) Bilateral breast cancer: Status: Acute (4) Obstructive cardiovascular shock: Status: Acute (5) Pulmonary hypertension: Status: Acute (6) Chronic diarrhea: Status: Chronic (7) Bloody stool: Status: Acute Additional A&P Information #PE -- stable IVC filter placed continue eliquis #blood stools --check FOBT, monitor vitals --may need to hold eliquis --on PPI #hypoxemia --taper O2 #weakness --PT #bilateral breast cancer --oncology followup Attestations Medical Necessity Statement*: Bee Zheng's hospital stay will require greater than 2 midnights for PE Coding Level of Care Code Acute Stenciling Machine Tender for Chg Fwd Diagnoses Metabolic acidosis E87.2 Pulmonary embolism I26.99 Pulmonary embolism type: unspecified Chronicity: acute Acute cor pulmonale presence: unspecified Bilateral breast cancer C50.911; C50.912 Obstructive cardiovascular shock R57.8 Pulmonary hypertension I27.20 Chronic diarrhea K52.9 Bloody stool K92.1
--- NOTE | 2021-05-09 17:50 | PC.NURSE ---
moved patient to [id number]
[2021-05-10] VITALS (11 sets, daily range): BP systolic 84–111; BP diastolic 57–76; PULSE 90–97; RESP 16–18; TEMP 36.4–37.2; O2SAT 92–98
[2021-05-10] MEDS: apixaban 5 mg Tablet 10 MG PO (08:46)
[2021-05-10] MEDS: lactobacillus 1 Tablet 1 TAB PO ×2 (08:46→18:29)
[2021-05-10] MEDS: pantoprazole DR 40 mg Tablet PO (08:46)
[2021-05-10] MEDS: FUROsemide 20 mg Tablet PO (08:46)
--- NOTE | 2021-05-10 13:00 | CT_ITS ---
WS: [id number] CT ABDOMEN AND PELVIS WITH CONTRAST HISTORY: gi bleed, chronic diarrhea, history of colitis TECHNIQUE: Imaging performed of the abdomen and pelvis with IV contrast. Single phase imaging of the abdomen. Coronal and sagittal reformats are submitted. All CT scans at [facility] use at least one of these dose optimization techniques: automated exposure control; mA and/or kV adjustment per patient size (includes targeted exams where dose is matched to clinical indication); or iterativ e reconstruction. IV CONTRAST: Omnipaque 300; 95 mL IV. Oral contrast: Yes. DLP: 1375.08 mGy.cm COMPARISON: 05/02/2021 Lower thorax: Small bilateral pleural effusions have mildly increased since 05/02/2021. Continued RIGHT heart strain. RIGHT heart is enlarged. Moderate circumferential pericardial effusion. No hiatal altaf ia. Liver/biliary system: Surface of the liver is irregular from cirrhosis. No mass identified or bile du ct dilatation. Normal portal vein. Gallbladder: Normally distended gallbladder with several stones layering. Pancreas: Pancreatic atrophy. Small amount of fluid adjacent to the pancreatic tail. Spleen: Normal size spleen with several granulomata. Adrenal glands: Normal. Right kidney: Mild diffuse cortical thinning. No obstruction or mass. Left kidney: Mild cortical thinning with no obstruction or mass. Aorta: Mild atherosclerosis with no aneurysm. IVC filter at the level of the renal veins. Lymphadenopathy: None. Free fluid: There is a small amount of free fluid adjacent to the liver and extending along the parac olic gutters. Mild mesenteric edema. Small amount of free fluid extends into the pelvis bilaterally. Free fluid is new. GI tract: Abnormal appearance to the GI tract since the prior study. There is moderate mucosal enhanc ement and several long segment areas of the colon. Mucosal enhancement fecal retention in the ascendi ng colon. More normal appearance of the transverse colon. There is increase fluid with circumferentia l mucosal enhancement and shagginess of the wall and edema involving the descending and sigmoid colon to the rectum. There is adjacent pericolonic inflammation and edema. Abdominal wall: Unremarkable abdominal wall. No hernia. Pelvis: Rothman catheter in a nondistended bladder. There are several foci of air in the urinary bladde r. Bones: Unremarkable. CT/CT abdomen pelvis w con* [id number] IMPRESSION: 1. New mucosal edema with increased enhancement of the mucosa in the ascending and descending colon to the level of the rectum. Mucosal edema or shagginess t he wall. Consider pseudomembranous colitis and other etiologies of colitis. 2. Small but increasing bilateral pleural effusions. 3. Small but slightly increased pericardial effusion. 4. New ascites and mesenteric edema and anasarca. 5. Cholelithiasis. 6. Cirrhosis. 7. No free air. Notified Ngozi Dawson MD at 05/10/2021 3:55 PM.
--- NOTE | 2021-05-10 13:22 | P.PN_ITS ---
Subjective Subjective: Interval history: 71-year-old female admitted to the ICU after a pulmonary emboli and status post TPA. Patient is noted to be fluid overloaded. Also had YORDY likely secondary to ATN as well as GI bleed. she does follow with oncology with history of metastatic breast cancer. she has been transferred out of ICU she has had history of diarrhea and hematochezia last colonoscopy was 10/14 she has reported blood in stool denies abd pain, dizziness, cp, or SOB Medications: Reviewed: Yes Vitals/I&O/Wt Last Vital Signs Temp 97.5 F L 05/10/21 11:39 Pulse 91 05/10/21 11:39 Resp 17 05/10/21 11:39 BP 84/57 05/10/21 11:39 Pulse Ox 95 05/10/21 11:39 05/09/21 05/10/21 05/10/21 22:59 06:59 14:59 Intake Total 220 / 460 240 / 240 Output Total 300 / 300 400 / 700 Balance -80 / 160 -400 / -240 240 / 240 Weight last 48 hrs Weight 169 lb 7 oz Weight 167 lb 4.8 oz Physical Exam Const: COMMON NORMALS: no acute distress and patient oriented x3 Chest: OTHER: previous surgical scars noted Resp: COMMON NORMALS: normal respiratory effort, No retractions and No use of accessory muscles Cardio: COMMON NORMALS: regular rate and regular rhythm RATE: regular rate RHYTHM: regular rhythm GI: COMMON NORMALS: Soft to palpation and non-tender PALPATION: Yes Soft to palpation Extremity: COMMON NORMALS: normal to inspection Neuro: COMMON NORMALS: patient oriented x3 Psych: ATTITUDE: Yes calm Urinary Catheter Management^: Rothman: Cath Placed During This Visit: yes Reason for Continuing Indwelling Catheter: Other Urinary Catheter Date of Insertion: 05/02/21 Urinary Catheter Time of Insertion: 21:14 Data : 05/09/21 05:45 05/09/21 05:45 Micro: Microbiology 05/09/21 12:22 Occult Blood (FIT) - Final Stool Routine Collection A&P Assessment and plan (1) Pulmonary embolism: Status: Acute Qualifiers: Pulmonary embolism type: unspecified Chronicity: acute Acute cor pulmonale presence: unspecified Qualified Code(s): I26.99 - Other pulmonary embolism without acute cor pulmonale (2) Bilateral breast cancer: Status: Acute (3) Bloody stool: Status: Acute (4) Chronic diarrhea: Status: Chronic Additional A&P Information #PE --O2 requirements about the same IVC filter placed continue eliquis #hematochezia --hold eliquis --awaiting CBC, INR --start IVF, --change PPI to IV --add carafate --may need to move back to ICU --she may need further evaluation for causes of lower GI bleed including colonoscopy #hypoxemia --taper O2 #weakness --PT #bilateral breast cancer --oncology followup --discussed with Dr. Rascon, had curative treatment Attestations Medical Necessity Statement*: Bee Zheng's hospital stay will require greater than 2 midnights for PE Coding Level of Care Code Acute Machine Package Sealer for Chg Fwd Diagnoses Pulmonary embolism I26.99 Pulmonary embolism type: unspecified Chronicity: acute Acute cor pulmonale presence: unspecified Bilateral breast cancer C50.911; C50.912 Bloody stool K92.1 Chronic diarrhea K52.9
[2021-05-10] MEDS: sodium chloride 0.9% 1,000 ML 100 ML IV (13:25)
[2021-05-10] MEDS: sucralfate 1 gm Tablet PO ×3 (13:30→21:13)
[2021-05-10 14:25] LABS: Basophils # 0.1 10^3/uL (0.0-0.1); Basophils % 2.5 %; Eosinophils # 0.1 10^3/uL (0.0-0.8); Hematocrit 34.6 % (37.0-47.0); Hemoglobin 10.9 g/dL (11.5-15.3); Lymphocytes # 0.4 10^3/uL (0.8-4.8); Lymphocytes % 18.2 %; Mean Corpuscular HGB Conc 31.5 g/dL (30.0-36.0); Mean Corpuscular Hemoglobin 34.3 pg (28.0-34.0); Mean Corpuscular Volume 108.8 fL (81-99); Mean Platelet Volume 11.5 fL (7.4-10.4); Monocytes # 0.3 10^3/uL (0.2-0.9); Neutrophils # 1.46 10^3/uL (1.8-7.7); Neutrophils % 61.9 %; Nucleated Red Blood Cells % 0 %; Platelet Count 100 10^3/cmm (130-400); Red Blood Count 3.18 10^6/uL (4.1-5.3); Red Cell Distribution Width 16.7 % (12.1-15.1); White Blood Count 2.4 10^3/uL (4.0-10.0)
--- NOTE | 2021-05-10 14:27 | P.CONIM_ITS ---
Providers/Reason For Consult Consulting Physician/Specialty*: Internal medicine/endoscopy Reason for Consult*: Hematochezia Attending Physician: Ngozi Dawson MD Primary Care Provider: FABY Howard History of Present Illness History of Present Illness Bee Zheng is a 71 year old female who has had a fairly busy hospital stay of of late. She was originally admitted and diagnosed with pulmonary emboli for which she received TPA. She was in preparation for discharge soon, having been placed on Eliquis. She began to have some hematochezia, the amount of which is a bit unclear. She had a colonoscopy that was not complete in September. According to the notes it was not completed because of what sounds like a redundant sigmoid colon. She did have some diverticuli and some colitis on said colonoscopy. She denies abdominal cramping or pain. She states to me that the last bloody stool she had was about 3 in the morning. Review of Systems General: Reports: 10 or more systems reviewed and unremarkable except in HPI and below Meds/Allergies Home Medications and Allergies Home Medications Medication Instructions Recorded Confirmed Last Taken Type furosemide 40 mg PO DAILY PRN 11/16/19 05/03/21 09/26/20 History gabapentin 300 mg PO BID 11/16/19 05/03/21 05/01/21 History potassium chloride 20 meq PO BID PRN 11/16/19 05/03/21 09/26/20 History anastrozole 1 mg PO DAILY 09/25/20 05/03/21 05/01/21 History levothyroxine [Euthyrox] 125 mcg PO DAILY 05/01/21 05/03/21 05/01/21 01:00 History Allergies Allergy/AdvReac Type Severity Reaction Status Date / Time No Known Allergies Allergy Verified 05/02/21 17:57 Current Medications Current Medications Generic Name Dose Route Start Last Admin Trade Name Freq PRN Reason Stop Dose Admin Acetaminophen 650 mg 05/02/21 23:36 05/07/21 15:21 Acetaminophen 325 Mg Tablet PO 650 mg Q6H PRN Administration MILD PAIN Apixaban 10 mg 05/06/21 21:00 05/10/21 08:46 Apixaban 5 Mg Tablet PO 10 mg BID@0900,2100 RADHA Administration Norepinephrine Bitartrate 4 mg 254 mls @ 0 mls/hr 05/02/21 20:30 05/09/21 09:41 / Dextrose IV Infused .Q0M RADHA Titration Protocol Per Protocol Sodium Chloride 1,000 mls @ 100 mls/hr 05/10/21 13:00 05/10/21 13:25 Sodium Chloride 0.9% IV 100 mls/hr .Q10H RADHA Administration Lactobacillus Acidophilus 1 tab 05/03/21 09:00 05/10/21 08:46 Lactobacillus 1 Tablet PO 1 tab BID RADHA Administration Loperamide HCl 4 mg 05/06/21 10:43 05/07/21 10:03 Loperamide 2 Mg Capsule PO 4 mg QID PRN Administration DIARRHEA Sucralfate 1 gm 05/10/21 13:15 05/10/21 13:30 Sucralfate 1 Gm Tablet PO 1 gm QID RADHA Administration PFSH Acute PFSH: Medical History (Updated 05/09/21 @ 11:05 by Ngozi Dawson MD) Bilateral breast cancer 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 Is with Dr. Rascon. Right breast was grade 1 stage IIa (ypT1c, YPN2A, M0), ER/TX positive and HER-2/nu negative. Left breast was grade 3 stage at least 1B (ypT2, YPN2A, M0), ER/TX positive and HER-2/bernadine positive. Chemotherapy stopped after 4 cycles due to toxicity. Had modified radical mastectomy bilaterally and underwent prophylactic chest wall radiation. Chronic diarrhea Drug-induced peripheral neuropathy Chemotherapy History of blood transfusion History of DVT (deep vein thrombosis) Left lower extremity, approximately 10 years ago, preceded first cancer alisia gnosis History of endometrial cancer Status post hysterectomy and bilateral salpingo-oophorectomy with postoperative HDR implant radiation in 2014 Hypothyroidism Port-A-Cath in place Post-radiation pneumonitis Surgical History History of colonoscopy (~09/2020) History of hernia repair History of hysterectomy Status post bilateral mastectomy Family History (Updated 05/02/21 @ 22:50 by Cyndi Chicas MD) Mother Cancer Denies family history of Clotting disorder Social History (Updated 05/02/21 @ 22:51 by Cyndi Chicas MD) Smoking and tobacco status: former smoker Alcohol intake: former Former alcohol use details: Previously drank beer regularly but none in about a year Substance/Drug Use: never Lives independently: Yes Household members: none Vitals/I&O/Wt Last Vital Signs Temp 98.9 F 05/10/21 13:41 Pulse 91 05/10/21 13:41 Resp 16 05/10/21 13:41 BP 111/76 05/10/21 13:41 Pulse Ox 95 05/10/21 13:41 05/09/21 05/10/21 05/10/21 22:59 06:59 14:59 Intake Total 220 / 460 480 / 480 Output Total 300 / 300 400 / 700 Balance -80 / 160 -400 / -240 480 / 480 Weight last 48 hrs Weight 169 lb 7 oz Weight 167 lb 4.8 oz Physical Exam Narrative: EXAM NARRATIVE: She is comfortable and in no distress. She is pretty weak with her low blood pressure. Resp: COMMON NORMALS: normal respiratory effort, No retractions, No use of accessory muscles, clear to auscultation bilaterally and percussion normal AUSCULTATION: clear to auscultation bilaterally PERCUSSION: percussion normal GI: COMMON NORMALS: Normal to inspection, nondistended, normoactive bowel sounds present, Soft to palpation, non-tender, No hepatosplenomegaly present, no masses and no bruits PALPATION: Yes Soft to palpation and Yes No hepatosplenomegaly present Urinary Catheter Management^: Rothman: Cath Placed During This Visit: yes Reason for Continuing Indwelling Catheter: Other Urinary Catheter Date of Insertion: 05/02/21 Urinary Catheter Time of Insertion: 21:14 Data Micro: Micro: Microbiology 05/09/21 12:22 Occult Blood (FIT) - Final Stool Routine Col lection A&P Assessment and plan (1) Bloody stool: Given her stable hemoglobin, this does not seem to be to busy. I appreciate that we need to know what the source of bleeding is. Unfortunately in something so intermittent, the source is often elusive. She is a bit cardiov ascularly unstable right now with low blood pressures., Though we know she is not profoundly anemic. My plan is to watch her over the weekend, let the hospitalist team work on her blood pressure and fluid status. And we will plan on doing a colonoscopy on Thursday morning. If her status changes and she bleeds profusely over the weekend obviously we will expedite that exam. Status: Acute (2) Pulmonary embolism: Status: Acute Qualifiers: Pulmonary embolism type: unspecified Chronicity: acute Acute cor pulmonale presence: unspecified Qualified Code(s): I26.99 - Other pulmonary embolism without acute cor pulmonale Coding Level of Care Code Acute Manager Social Work for Chg Fwd Exam Expanded Problem Focused Diagnoses Bloody stool K92.1 Pulmonary embolism I26.99 Pulmonary embolism type: unspecified Chronicity: acute Acute cor pulmonale presence: unspecified Comment Please allow Ericka white this note
[2021-05-10 14:35] LABS: Alanine Aminotransferase 21 U/L (0-33); Albumin Level 2.1 g/dL (3.5-5.2); Alkaline Phosphatase 157 IU/L (35-105); Aspartate Amino Transferase 20 U/L (0-32); Blood Urea Nitrogen 13 mg/dL (8-23); Calcium 7.5 mg/dL (8.5-10.5); Carbon Dioxide 28 mmol/L (22-29); Chloride 100 mmol/L (98-107); Globulin 3.4 g/dL (1.3-4.6); Glucose 103 mg/dL (65-115); Magnesium 1.1 mg/dL (1.7-2.3); Osmolality Calculated 282 mOsm/kg (285-295); Sodium 136 mmol/L (136-145); Total Bilirubin 0.5 mg/dL (0.15-1.2); Total Protein 5.5 g/dL (6.6-8.7)
[2021-05-10] MEDS: iohexol 300 mg/mL 100 mL Btl IV (15:30)
[2021-05-10] MEDS: iohexol 300 mg/mL 50 mL Btl PO (15:30)
[2021-05-10 16:28] LABS: INR 1.81 (0.8-1.2)
[2021-05-10] MEDS: magnesium oxide 400 mg tablet PO (18:29)
[2021-05-10] MEDS: metroNIDAZOLE IV 500 MG/100 ML PREMIX 100 MG IV (18:40)
[2021-05-10] MEDS: pantoprazole 40 mg SDV IVP (21:34)
[2021-05-11] VITALS (11 sets, daily range): BP systolic 100–125; BP diastolic 64–86; PULSE 79–96; RESP 17–18; TEMP 36.4–36.6; O2SAT 91–96
[2021-05-11] MEDS: metroNIDAZOLE IV 500 MG/100 ML PREMIX 100 MG IV ×3 (02:13→17:49)
[2021-05-11] MEDS: sodium chloride 0.9% 1,000 ML 75 ML IV ×2 (02:15→17:58)
--- NOTE | 2021-05-11 08:33 | PC.SOCIAL ---
IMM updated Pg 2 of IMM updated and reviewed with pt. She verbalized an understanding. No questions, copy provided.
[2021-05-11] MEDS: magnesium oxide 400 mg tablet PO (09:02)
[2021-05-11] MEDS: lactobacillus 1 Tablet 1 TAB PO ×2 (09:02→17:50)
[2021-05-11] MEDS: potassium chloride ER 20 mEq Tablet 40 MEQ PO (09:03)
[2021-05-11] MEDS: sucralfate 1 gm Tablet PO ×4 (09:03→21:11)
[2021-05-11 09:38] LABS: Basophils # 0.1 10^3/uL (0.0-0.1); Basophils % 2.8 %; Eosinophils # 0.1 10^3/uL (0.0-0.8); Eosinophils % 4.9 %; Hemoglobin 11.9 g/dL (11.5-15.3); Lymphocytes # 0.3 10^3/uL (0.8-4.8); Lymphocytes % 13.4 %; Mean Corpuscular HGB Conc 31.3 g/dL (30.0-36.0); Mean Corpuscular Hemoglobin 34.3 pg (28.0-34.0); Mean Corpuscular Volume 109.5 fL (81-99); Mean Platelet Volume 11.3 fL (7.4-10.4); Monocytes # 0.2 10^3/uL (0.2-0.9); Monocytes % 9.3 %; Neutrophils # 1.71 10^3/uL (1.8-7.7); Neutrophils % 69.2 %; Nucleated Red Blood Cells % 0 %; Platelet Count 102 10^3/cmm (130-400); Red Blood Count 3.47 10^6/uL (4.1-5.3); Red Cell Distribution Width 16.9 % (12.1-15.1); White Blood Count 2.5 10^3/uL (4.0-10.0)
[2021-05-11] MEDS: pantoprazole 40 mg SDV IVP ×2 (09:55→21:11)
--- NOTE | 2021-05-11 17:33 | P.PN_ITS ---
Subjective Subjective: Interval history: noted improvement in bloody diarrhea however did have an episode today. Medications: Reviewed: Yes Vitals/I&O/Wt Last Vital Signs Temp 97.5 F L 05/11/21 16:00 Pulse 90 05/11/21 16:00 Resp 18 05/11/21 16:00 BP 102/68 05/11/21 16:00 Pulse Ox 96 05/11/21 16:00 05/11/21 05/11/21 05/11/21 06:59 14:59 22:59 Intake Total 900.7579 / 2081.0909 360 / 360 1100 / 1460 Balance 900.7579 / 1481.0909 360 / 360 1100 / 1460 Weight last 48 hrs Weight 76.289 kg Weight 76.856 kg Physical Exam Narrative: EXAM NARRATIVE: Constitutional: Patient is awake, slow to answer questions, extremely pale and ill-appearing HEENT: Normocephalic, pupils are reactive, eye make-up is intact, clear nasophar ynx, oropharynx with moist mucous membranes, no petechiae noted Neck: Supple Respiratory: Tachypneic, shallow respirations, no rales rhonchi or wheezes, supraclavicular retractions mild Cardiovascular: Tachycardic, distant heart sounds, no murmurs, capillary refill right at 3 seconds, peripheral pulses are equal but weak, central pulses 2+, no mottling, distal extremities cool to touch, no bruits appreciated Abdomen: Soft, mild tenderness and upper quadrants without rebound or guarding, bowel sounds are present : Normal external genitalia Extremities: Chest wall is tender to palpation over Port-A-Cath site and sternum, status post bilateral mastectomy, edema noted to right lower extremity compared to left lower extremity, no palpable cords, no erythematous or acutely swollen joints appreciated Skin: Dry, pale, no acute sores or rashes identified Neuro: Lethargic, oriented to person and to place but not necessarily to the severity of current situation, not able to answer all questions due to waxing mentation but when does answer for the most part appropriate, face is symmetric, extraocular movements are grossly intact, toes are downgoing, handgrip equal, moves both lower extremities Psych: Cooperative Const: COMMON NORMALS: no acute distress, patient oriented x3 and alert GE NERAL APPEARANCE: cooperative and comfortable ORIENTATION/CONSCIOUSNESS: Yes awake HENMT: COMMON NORMALS: oropharynx normal Neck/C-Spine: COMMON NORMALS: no JVD Chest: OTHER: port Resp: COMMON NORMALS: normal respiratory effort, No retractions and clear to auscultation bilaterally AUSCULTATION: clear to auscultation bilaterally Cardio: COMMON NORMALS: no JVD, regular rate, regular rhythm, S1 normal heart sound present, S2 normal heart sound present and No murmurs present (Cardio) RATE: regular rate RHYTHM: regular rhythm HEART SOUNDS: S1 normal heart sound present and S2 normal heart sound present GI: COMMON NORMALS: Normal to inspection, nondistended, normoactive bowel soun ds present, Soft to palpation and non-tender PALPATION: Yes Soft to palpation Extremity: COMMON NORMALS: normal to inspection, full ROM, no joint enlargement and no pedal edema GENERAL: Yes edema (1+) Neuro: COMMON NORMALS: patient oriented x3 and moves all extremities SENSO RIUM/ORIENTATION: Yes alert Psych: COMMON NORMALS: mental status grossly normal ATTITUDE: Yes calm and Yes engaged ACTIVITY/MOTOR BEHAVIOR: Yes appropriate eye contact Skin: COMMON NORMALS: no rashes or lesions noted GENERAL SKIN EXAM: no rashes or lesions noted Urinary Catheter Management^: Rothman: Cath Placed During This Visit: yes Reason for Continuing Indwelling Catheter: Other Urinary Catheter Date of Insertion: 05/02/21 Urinary Catheter Time of Insertion: 21:14 Data : 05/11/21 08:29 05/10/21 13:25 Micro: Microbiology 05/10/21 21:17 Enteric Pathogens (PCR) - Final Stool Routine Collection 05/10/21 21:17 C.difficile Toxin B Gene (PCR) - Final Stool Routine Collection 05/10/21 21:17 Stool Lactoferrin - Final Stool A&P Assessment and plan (1) Pulmonary embolism: stable IVC filter placed continue eliquis Status: Acute Qualifiers: Pulmonary embolism type: unspecified Chronicity: acute Acute cor pulmonale presence: unspecified Qualified Code(s): I26.99 - Other pulmonary embolism without acute cor pulmonale (2) Bilateral breast cancer: followup with Oncology Status: Acute (3) Bloody stool: Status: Acute (4) Chronic diarrhea: Status: Chronic Additional A&P Information #PE --O2 requirements about the same -- IVC filter placed -- continue eliquis #hematochezia -- hold anticoagulation if worsening h/h -- Monitor h/h #Hypokalemia -- Replace. #hypoxemia --taper O2 #weakness --PT #bilateral breast cancer --oncology followup --discussed with Dr. Rascon, had curative treatment Attestations Medical Necessity Statement*: Continue hospitalization for management of bloody diarrhea Time Spent in Patient Care: Greater than 35 minutes (>than 50% of time spent in counselling and/or direct pt care on unit) . 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
[2021-05-12] VITALS (9 sets, daily range): BP systolic 94–117; BP diastolic 61–73; PULSE 82–92; RESP 17–18; TEMP 36.4–36.6; O2SAT 93–98
--- NOTE | 2021-05-12 00:58 | ECG_ITS ---
[facility] ED Test Date: 2021-05-12 Pat Name: Bee Zheng Department: Room: 277 Gender: Female [employer]: : 1950 Requested By: Shanti Tsang Order Number: [id number] Roxanne MD: Oralia Berumen M.D. Measurements Intervals Bunn Rate: 86 P: 68 GA: 138 QRS: 153 QRSD: 130 T: -3 QT: 439 QTc: 526 Interpretive Statements SINUS RHYTHM RIGHT BUNDLE BRANCH BLOCK AND POSSIBLE RIGHT VENTRICULAR HYPERTROPHY [RBBB, 1.5 mV R IN V1, RAD] LEFT POSTERIOR FASCICULAR BLOCK [QRS AXIS > 109, INFERIOR Q] Compared to ECG 05/03/2021 00:43:18 Left posterior fascicular block now present Sinus tachycardia no longer present Ventricular premature complex(es) no longer present Right-axis deviation no longer present Myocardial infarct finding no longer present T-wave abnormality no longer present Possible ischemia no longer present Electronically Signed On 05-14-2021 16:45:45 CDT by Oralia Berumen M.D. [id number]
[2021-05-12] MEDS: metroNIDAZOLE IV 500 MG/100 ML PREMIX 100 MG IV ×3 (03:10→17:39)
[2021-05-12 07:17] LABS: Basophils # 0.1 10^3/uL (0.0-0.1); Basophils % 1.9 %; Eosinophils # 0.1 10^3/uL (0.0-0.8); Eosinophils % 3.7 %; Hematocrit 34.8 % (37.0-47.0); Hemoglobin 10.8 g/dL (11.5-15.3); Lymphocytes # 0.4 10^3/uL (0.8-4.8); Lymphocytes % 10.9 %; Mean Corpuscular Hemoglobin 34.2 pg (28.0-34.0); Mean Corpuscular Volume 110.1 fL (81-99); Monocytes # 0.3 10^3/uL (0.2-0.9); Monocytes % 8.8 %; Neutrophils % 74.4 %; Nucleated Red Blood Cells % 0 %; Platelet Count 111 10^3/cmm (130-400); Red Blood Count 3.16 10^6/uL (4.1-5.3); Red Cell Distribution Width 16.9 % (12.1-15.1); White Blood Count 3.8 10^3/uL (4.0-10.0)
[2021-05-12] MEDS: sodium chloride 0.9% 1,000 ML 75 ML IV (07:31)
[2021-05-12] MEDS: sucralfate 1 gm Tablet PO ×4 (08:47→23:42)
[2021-05-12] MEDS: pantoprazole 40 mg SDV IVP ×2 (08:47→20:38)
[2021-05-12] MEDS: lactobacillus 1 Tablet 1 TAB PO ×2 (08:47→17:38)
[2021-05-12] MEDS: potassium chloride ER 20 mEq Tablet 40 MEQ PO (08:47)
--- NOTE | 2021-05-12 11:42 | PM.PN ---
Subjective Subjective: Interval history: Noted improvement in diarrhea Medications: Reviewed: Yes Vitals/I&O/Wt Last Vital Signs Temp 97.6 F 05/12/21 11:13 Pulse 92 05/12/21 11:13 Resp 17 05/12/21 11:13 BP 105/69 05/12/21 11:13 Pulse Ox 98 05/12/21 11:13 05/11/21 05/12/21 05/12/21 22:59 06:59 14:59 Intake Total 1679 / 2039 240 / 2280 1679 / 1680 Output Total 250 / 250 Balance 16790 / 1680 Weight last 48 hrs Weight 77.247 kg Weight 76.289 kg Physical Exam Const: COMMON NORMALS: no acute distress, patient oriented x3 and alert GENERAL APPEARANCE: cooperative and comfortable ORIENTATION/CONSCIOUSNESS: Yes awake HENMT: COMMON NORMALS: oropharynx normal Neck/C-Spine: COMMON NORMALS: no JVD Chest: OTHER: port Resp: COMMON NORMALS: normal respiratory effort, No retractions and clear to auscultation bilaterally AUSCULTATION: clear to auscultation bilaterally Cardio: COMMON NORMALS: no JVD, regular rate, regular rhythm, S1 normal heart sound present, S2 normal heart sound present and No murmurs present (Cardio) RATE: regular rate RHYTHM: regular rhythm HEART SOUNDS: S1 normal heart sound present and S2 normal heart sound present GI: COMMON NORMALS: Normal to inspection, nondistended, normoactive bowel sounds present, Soft to palpation and non-tender PALPATION: Yes Soft to palpation Extremity: COMMON NORMALS: normal to inspection, full ROM, no joint enlargement and no pedal edema GENERAL: Yes edema (1+) Neuro: COMMON NORMALS: patient oriented x3 and moves all extremities SENSORIUM/ORIENTATION: Yes alert Psych: COMMON NORMALS: mental status grossly normal ATTITUDE: Yes calm and Yes engaged ACTIVITY/MOTOR BEHAVIOR: Yes appropriate eye contact Skin: COMMON NORMALS: no rashes or lesions noted GENERAL SKIN EXAM: no rashes or lesions noted Urinary Catheter Management^: Rothman: Cath Placed During This Visit: yes Reason for Continuing Indwelling Catheter: Acute Urinary Retention or Obstruction Urinary Catheter Date of Insertion: 05/02/21 Urinary Catheter Time of Insertion: 21:14 Data : 05/12/21 06:59 05/10/21 13:25 Micro: Microbiology 05/10/21 21:17 Enteric Pathogens (PCR) - Final Stool Routine Collection A&P Assessment and plan (1) Pulmonary embolism: stable IVC filter placed continue eliquis Status: Acute Qualifiers: Pulmonary embolism type: unspecified Chronicity: acute Acute cor pulmonale presence: unspecified Qualified Code(s): I26.99 - Other pulmonary embolism without acute cor pulmonale (2) Bilateral breast cancer: followup with Oncology Status: Acute (3) Bloody stool: CT abd/pelvis - pseudomembranous coliitis C-dfif negative On flagyl Improving Status: Acute (4) Chronic diarrhea: Status: Chronic Additional A&P Information #hematochezia -- hold anticoagulation if worsening h/h -- Monitor h/h -- Improving -- S/p scope #Hypokalemia -- Replace. -- BMP now #hypoxemia --taper O2 #weakness --PT #bilateral breast cancer --oncology followup --discussed with Dr. Rascon, had curative treatment Attestations Medical Necessity Statement*: Further hospitalization for management of diarrhea Time Spent in Patient Care: Greater than 35 minutes (>than 50% of time spent in counselling and/or direct pt care on unit). Coding Level of Care Code Acute [employer] Fwd Diagnoses Pulmonary embolism I26.99 Pulmonary embolism type: unspecified Chronicity: acute Acute cor pulmonale presence: unspecified Bilateral breast cancer C50.911; C50.912 Bloody stool K92.1 Chronic diarrhea K52.9
[2021-05-12] MEDS: magnesium citrate Btl 296 mL PO ×2 (13:12→17:38)
[2021-05-12] MEDS: bisacodyl 5 mg Tablet 15 MG PO (14:02)
[2021-05-12 14:56] LABS: Anion Gap 12.7 (5-19); Blood Urea Nitrogen 10 mg/dL (8-23); Carbon Dioxide 22 mmol/L (22-29); Chloride 103 mmol/L (98-107); Glomerular Filtration Rate 62.1 mL/min (90-130); Glucose 71 mg/dL (65-115); Osmolality Calculated 276 mOsm/kg (285-295); Potassium 3.7 mmol/L (3.5-5.1); Sodium 134 mmol/L (136-145)
--- NOTE | 2021-05-12 18:15 | PC.NURSE ---
notified Dr Wen that patient's urine output was 100ml for shift.
[2021-05-12] MEDS: sodium chloride 0.9% 500 ML IV (18:58)
[2021-05-12] MEDS: ondansetron 2 mg/ML SDV 2 mL 4 MG IVP (20:37)
[2021-05-13] VITALS (13 sets, daily range): BP systolic 85–132; BP diastolic 55–84; PULSE 76–91; RESP 14–18; TEMP 36.1–37.1; O2SAT 91–99
[2021-05-13] MEDS: ondansetron 2 mg/ML SDV 2 mL 4 MG IVP (03:46)
[2021-05-13] MEDS: metroNIDAZOLE IV 500 MG/100 ML PREMIX 100 MG IV ×3 (03:47→18:08)
[2021-05-13] MEDS: sodium chloride 0.9% 1,000 ML 75 ML IV ×2 (03:49→09:00)
[2021-05-13 06:08] LABS: Basophils # 0.1 10^3/uL (0.0-0.1); Basophils % 2.7 %; Eosinophils # 0.2 10^3/uL (0.0-0.8); Hematocrit 32.6 % (37.0-47.0); Lymphocytes # 0.6 10^3/uL (0.8-4.8); Lymphocytes % 17.4 %; Mean Corpuscular HGB Conc 30.7 g/dL (30.0-36.0); Mean Corpuscular Hemoglobin 34.1 pg (28.0-34.0); Mean Corpuscular Volume 111.3 fL (81-99); Mean Platelet Volume 10.9 fL (7.4-10.4); Monocytes # 0.3 10^3/uL (0.2-0.9); Monocytes % 10.2 %; Neutrophils # 2.11 10^3/uL (1.8-7.7); Neutrophils % 63.1 %; Nucleated Red Blood Cells % 0 %; Platelet Count 110 10^3/cmm (130-400); Red Blood Count 2.93 10^6/uL (4.1-5.3); White Blood Count 3.3 10^3/uL (4.0-10.0)
[2021-05-13 06:34] LABS: Procalcitonin 0.11 ng/mL (0-0.5)
[2021-05-13 06:50] LABS: Alanine Aminotransferase 13 U/L (0-33); Albumin Level 1.9 g/dL (3.5-5.2); Alkaline Phosphatase 127 IU/L (35-105); Anion Gap 11.5 (5-19); Aspartate Amino Transferase 15 U/L (0-32); Blood Urea Nitrogen 10 mg/dL (8-23); Calcium 7.7 mg/dL (8.5-10.5); Carbon Dioxide 21 mmol/L (22-29); Chloride 109 mmol/L (98-107); Globulin 3.1 g/dL (1.3-4.6); Glomerular Filtration Rate 62.1 mL/min (90-130); Glucose 65 mg/dL (65-115); Magnesium 1.6 mg/dL (1.7-2.3); Osmolality Calculated 283 mOsm/kg (285-295); Potassium 3.5 mmol/L (3.5-5.1); Sodium 138 mmol/L (136-145); Total Bilirubin 0.4 mg/dL (0.15-1.2)
[2021-05-13] MEDS: pantoprazole 40 mg SDV IVP ×2 (08:59→21:59)
--- NOTE | 2021-05-13 09:28 | ANES.PREANE2 ---
Pre-Anesthetic Assessment Pre-Anesthetic Assessment: Height/Weight: Height 1.68 m Weight 79.152 kg Temp Pulse Resp BP Pulse Ox 98.0 F 88 18 102/63 95 05/13/21 08:00 05/13/21 08:00 05/13/21 08:00 05/13/21 08:00 05/13/21 08:00 Preop Diagnosis: IVC filter placement for inability to take anticoagulation in a hemodynamic Proposed Procedure: Operation Date: 05/03/21 16:30 Proposed Procedures p IVC Filter Insertion(Not Applicable) - Etta Fernando MD Operation Date: 05/13/21 10:45 Proposed Procedures p Colonoscopy(Not Applicable) - Mahin Duarte MD Familial anesthetic complications: None Was Beta Denis taken within 24 hours: N/A Was Clonidine taken within 24 hours: N/A Last intake: NPO > 8 hrs Social: Social History: No alcohol and No tobacco Exam: Pre-Anes Outpt Exam: alert, oriented x 3, clear to auscultation bilaterally and regular rate & rhythm Airway: Cervical ROM: WNL MP: 2 Dentition: False (uppers) Pulmonary: Comments: Acute PE w/ right heart strain with admission s/p IVC filter and TPA, now starting eliquis. On 5 L NC CV/HEM: Comments: Chronic pulmonary HTN Metabolic: Metabolic: Thyroid Anesthetic Plan: ASA status: 3 Anesthesia: MAC Other Pertinent Information: hx breast cancer Meds/Allergies Current Medications: Current Medications Generic Name Dose Route Start Last Admin Trade Name Freq PRN Reason Stop Dose Admin Acetaminophen 650 mg 05/02/21 23:36 05/07/21 15:21 Acetaminophen 32 5 Mg Tablet PO 650 mg Q6H PRN Administration MILD PAIN Apixaban 10 mg 05/06/21 21:00 05/10/21 08:46 Apixaban 5 Mg Ta blet PO 10 mg BID@0900,2100 RADHA Administration Norepinephrine Bit artrate 4 mg 254 mls @ 0 mls/h r 05/02/21 20:30 05/09/21 09:41 / Dextrose IV Infused .Q0M RADHA Titration Protocol Per Protocol Sodium Chloride 1,000 mls @ 75 ml s/hr 05/10/21 13:00 05/13/21 09:00 Sodium Chloride 0.9% IV 75 mls/hr .[id number] RADHA Administration Metronidazole 500 mg in 100 mls @ 100 mls/hr 05/10/21 18:00 05/13/21 09:09 Flagyl Iv IV 100 mls/hr Q8H RADHA Administration Protocol Lactobacillus Acid ophilus 1 tab 05/03/21 09:00 05/12/21 17:38 Lactobacillus 1 Tablet PO 1 tab BID RADHA Administration Loperamide HCl 4 mg 05/06/21 10:43 05/07/21 10:03 Loperamide 2 Mg Capsule PO 4 mg QID PRN Administration DIARRHEA Ondansetron HCl 4 mg 05/02/21 23:36 05/13/21 03:46 Ondansetron 2 Mg /Ml Sdv 2 Ml IVP 4 mg Q6H PRN Administration NAUSEA AND VOMITI NG Pantoprazole Sodiu m 40 mg 05/10/21 21:00 05/13/21 08:59 Pantoprazole 40 Mg Sdv IVP 40 mg Q12H RADHA Administration Potassium Chloride 40 meq 05/11/21 09:00 05/12/21 08:47 Potassium Chlori de Er 20 Meq Table t PO 40 meq DAILY RADHA Administration Sucralfate 1 gm 05/10/21 13:15 05/12/21 23:42 Sucralfate 1 Gm Tablet PO 1 gm QID RADHA Administration PFSH Anesthesia PFSH: Medical History (Updated 05/09/21 @ 11:05 by Ngozi Dawson MD) Bilateral breast cancer 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 Is with Dr. Rascon. Right breast was grade 1 stage IIa (ypT1c, YPN2A, M0), ER/OK positive and HER-2/nu negative. Left breast was grade 3 stage at least 1B (ypT2, YPN2A, M0), ER/OK positive and HER-2/bernadine positive. Chemotherapy stopped after 4 cycles due to toxicity. Had modified radical mastectomy bilaterally and underwent prophylactic chest wall radiation. Chronic diarrhea Drug-induced peripheral neuropathy Chemotherapy History of blood transfusion History of DVT (deep vein thrombosis) Left lower extremity, approximately 10 years ago, preceded first cancer diagnosis History of endometrial cancer Status post hysterectomy and bilateral salpingo-oophorectomy with postoperative HDR implant radiation in 2014 Hypothyroidism Port-A-Cath in place Post-radiation pneumonitis Surgical History History of colonoscopy (~09/2020) History of hernia repair History of hysterectomy Status post bilateral mastectomy Family History (Updated 05/02/21 @ 22:50 by Cyndi Chicas MD) Mother Cancer Denies family history of Clotting disorder Social History (Updated 05/02/21 @ 22:51 by Cyndi Chicas MD) Smoking and tobacco status: former smoker Alcohol intake: former Former alcohol use details: Previously drank beer regularly but none in about a year Lives independently: Yes Household members: none Data Anesthesia CBC & Chem 7: 05/13/21 05:36 05/13/21 05:36 Other Labs: Laboratory Results - last 48 hr 05/11/21 05/12/21 05/12/21 08:29 06:59 13:52 WBC 2.5 L 3.8 L RBC 3.47 L 3.16 L Hgb 11.9 10.8 L Hct 38.0 34.8 L MCV 109.5 H 110.1 H MCH 34.3 H 34.2 H MCHC 31.3 31.0 RDW 16.9 H 16.9 H Plt Count 102 L 111 L MPV 11.3 H 11.0 H Neut % (Auto) 69.2 74.4 Lymph % (Auto) 13.4 10.9 [place] % (Auto) 9.3 8.8 Eos % (Auto) 4.9 3.7 Baso % (Auto) 2.8 1.9 Neut # (Auto) 1.71 L 2.80 Lymph # (Auto) 0.3 L 0.4 L [place] # (Auto) 0.2 0.3 Eos # (Auto) 0.1 0.1 Baso # (Auto) 0.1 0.1 Nucleated RBC % (auto) 0 0 Nucleated RBCs # 0.0 0.0 Sodium 134 L Potassium 3.7 Chloride 103 Carbon Dioxide 22 Anion Gap 12.7 BUN 10 Creatinine 0.9 GFR Calculation 62.1 L Glucose 71 Calculated Osmolality 276 L Calcium 8.0 L Magnesium Total Bilirubin AST ALT Alkaline Phosphatase Total Protein Albumin Globulin Procalcitonin 05/13/21 05/13/21 05:36 05:36 WBC 3.3 L RBC 2.93 L Hgb 10.0 L Hct 32.6 L MCV 111.3 H MCH 34.1 H MCHC 30.7 RDW 17.0 H Plt Count 110 L MPV 10.9 H Neut % (Auto) 63.1 Lymph % (Auto) 17.4 [place] % (Auto) 10.2 Eos % (Auto) 6.0 Baso % (Auto) 2.7 Neut # (Auto) 2.11 Lymph # (Auto) 0.6 L [place] # (Auto) 0.3 Eos # (Auto) 0.2 Baso # (Auto) 0.1 Nucleated RBC % (auto) 0 Nucleated RBCs # 0.0 Sodium 138 Potassium 3.5 Chloride 109 H Carbon Dioxide 21 L Anion Gap 11.5 BUN 10 Creatinine 0.9 GFR Calculation 62.1 L Glucose 65 Calculated Osmolality 283 L Calcium 7.7 L Magnesium 1.6 L Total Bilirubin 0.4 AST 15 ALT 13 Alkaline Phosphatase 127 H Total Protein 5.0 L Albumin 1.9 L Globulin 3.1 Procalcitonin 0.11 Cardiac Studies: Echocardiogram 05/03/21
[2021-05-13] MEDS: sodium chloride 0.9% 1,000 ML 30 ML IV (10:05)
--- NOTE | 2021-05-13 11:52 | ANE.PACU2 ---
Inpatient post-anesthesia follow up: Airway intact: Yes Vital signs: Temperature 97.8 F Pulse Rate 79 Respiratory Rate 18 Blood Pressure 108/79 Pulse Oximetry 97 Oxygen Delivery Me thod [ Nasal Cannula Current Rate & Del shmuel] Oxygen Delivery Me thod Nasal Cannula Oxygen Flow Rate [ Current Rate 4 & Delivery] Oxygen Flow Rate 4 Fraction of Inspir ed Oxygen Hydration adequate: Yes Nausea and vomiting: No Pain level: 1 Mental status: Baseline
--- NOTE | 2021-05-13 12:04 | PC.NURSE ---
Rcvd report from Olimpia in GI. patient returning to floor soon.
--- NOTE | 2021-05-13 12:32 | PC.NURSE ---
patient arrived on floor. newswriter notified GI that is still in chart and newswriter is unable to transfer orders. Poonam said she will notified
[2021-05-13] MEDS: potassium chloride ER 20 mEq Tablet 40 MEQ PO (12:34)
[2021-05-13] MEDS: lactobacillus 1 Tablet 1 TAB PO ×2 (12:34→18:08)
[2021-05-13] MEDS: sucralfate 1 gm Tablet PO ×3 (12:34→21:55)
--- NOTE | 2021-05-13 15:05 | PC.SOCIAL ---
IMM Update Updated pt of medicare rights via phone call verbalized understanding. Place initialed, signed, dated copy in chart.
--- NOTE | 2021-05-13 16:04 | P.PN_ITS ---
Subjective Subjective: Interval history: Patient was seen and examined this morning, no acute events overnight, s/p colonoscopy today. Medications: Reviewed: Yes Vitals/I&O/Wt Last Vital Signs Temp 97.3 F L 05/13/21 12:00 Pulse 76 05/13/21 12:00 Resp 18 05/13/21 12:00 BP 127/84 05/13/21 12:00 Pulse Ox 93 05/13/21 11:58 05/13/21 05/13/21 05/13/21 06:59 14:59 22:59 Intake Total 60 / 3320 1688.75 / 1688.75 Output Total 150 / 250 Balance -90 / 3070 1688.75 / 1688.75 Weight last 48 hrs Weight 79.152 kg Weight 77.247 kg Physical Exam Const: COMMON NORMALS: patient oriented x3 HENMT: COMMON NORMALS: normocephalic and atraumatic HEAD & SCALP: normocephalic and atraumatic Chest: CHEST: Yes Symmetrical chest wall rise Resp: COMMON NORMALS: normal respiratory effort and clear to auscultation bilaterally EFFORT & INSPECTION: Yes symmetric chest movement AUSCULTATION: clear to auscultation bilaterally Cardio: COMMON NORMALS: regular rate, regular rhythm, S1 normal heart sound present, S2 normal heart sound present, No gallops present (Cardio), No murmurs present (Cardio), No rub (Cardio) and Peripheral pulses 2+ throughout RATE: regular rate RHYTHM: regular rhythm HEART SOUNDS: S1 normal heart sound present and S2 normal heart sound present PERIPHERAL PULSES: Peripheral pulses 2+ throughout GI: COMMON NORMALS: Normal to inspection, nondistended, normoactive bowel sounds present, Soft to palpation, non-tender, No hepatosplenomegaly present and no masses AUSCULTATION: Yes normoactive bowel sounds PALPATION: Yes Soft to palpation and Yes No hepatosplenomegaly present RECTAL EXAM: deferred Extremity: COMMON NORMALS: no clubbing, cyanosis or edema and no pedal edema Neuro: COMMON NORMALS: patient oriented x3 Urinary Catheter Management^: Rothman: Cath Placed During This Visit: yes Reason for Continuing Indwelling Catheter: Accurate Measurement of Urinary Output in Critically Ill Patients Urinary Catheter Date of Insertion: 05/02/21 Urinary Catheter Time of Insertion: 21:14 Data : 05/13/21 05:36 05/13/21 05:36 A&P Assessment and plan (1) Pulmonary embolism: stable IVC filter placed continue eliquis Status: Acute Qualifiers: Pulmonary embolism type: unspecified Chronicity: acute Acute cor pulmonale presence: unspecified Qualified Code(s): I26.99 - Other pulmonary embolism without acute cor pulmonale (2) Bilateral breast cancer: followup with Oncology Status: Acute (3) Bloody stool: CT abd/pelvis - pseudomembranous coliitis C-dfif negative On flagyl Improving Status: Acute (4) Chronic diarrhea: Status: Chronic Additional A&P Information #hematochezia -- hold anticoagulation if worsening h/h -- Monitor h/h -- Improving -- S/p scope : Moderate diffuse inflammation was seen, throughout the colon, colonic mucosa is erythematous, granular and friable, with spontaneous mucosal bleeding. #Hypokalemia -- Replace. -- BMP now #hypoxemia --taper O2 #weakness --PT #bilateral breast cancer --oncology followup --discussed with Dr. 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
[2021-05-14] VITALS (10 sets, daily range): BP systolic 91–122; BP diastolic 55–68; PULSE 75–93; RESP 14–17; TEMP 35.8–36.6; O2SAT 90–98
[2021-05-14] MEDS: metroNIDAZOLE IV 500 MG/100 ML PREMIX 100 MG IV (02:01)
[2021-05-14 06:44] LABS: Basophils % 0.8 %; Hematocrit 35.1 % (37.0-47.0); Hemoglobin 10.8 g/dL (11.5-15.3); Lymphocytes # 0.5 10^3/uL (0.8-4.8); Lymphocytes % 10.2 %; Mean Corpuscular HGB Conc 30.8 g/dL (30.0-36.0); Mean Corpuscular Hemoglobin 34.4 pg (28.0-34.0); Mean Corpuscular Volume 111.8 fL (81-99); Mean Platelet Volume 10.6 fL (7.4-10.4); Monocytes # 0.3 10^3/uL (0.2-0.9); Monocytes % 5.5 %; Neutrophils % 82.9 %; Nucleated Red Blood Cells % 0 %; Platelet Count 132 10^3/cmm (130-400); Red Blood Count 3.14 10^6/uL (4.1-5.3); Red Cell Distribution Width 16.9 % (12.1-15.1); White Blood Count 5.3 10^3/uL (4.0-10.0)
[2021-05-14 07:15] LABS: Anion Gap 14.3 (5-19); Blood Urea Nitrogen 10 mg/dL (8-23); Carbon Dioxide 19 mmol/L (22-29); Chloride 107 mmol/L (98-107); Glucose 99 mg/dL (65-115); Osmolality Calculated 281 mOsm/kg (285-295); Potassium 4.3 mmol/L (3.5-5.1); Sodium 136 mmol/L (136-145)
[2021-05-14] MEDS: sucralfate 1 gm Tablet PO ×4 (07:56→20:24)
[2021-05-14] MEDS: piperacillin-tazobactam 3.375 GM in sodium chloride 0.9% (plus) 100 ML IV ×3 (07:56→23:46)
[2021-05-14] MEDS: lactobacillus 1 Tablet 1 TAB PO ×2 (07:56→17:44)
[2021-05-14] MEDS: apixaban 5 mg Tablet 10 MG PO ×2 (07:57→20:24)
[2021-05-14] MEDS: pantoprazole 40 mg SDV IVP ×2 (07:57→22:09)
[2021-05-14] MEDS: potassium chloride ER 20 mEq Tablet 40 MEQ PO (07:57)
--- NOTE | 2021-05-14 12:06 | P.PN_ITS ---
Subjective Subjective: Interval history: Patient was seen and examined this morning, no acute events overnight, denies any abdominal pain , nausea , vomiting. Continue to remain afebrile. H&H has remained stable. Her other vitals and labs have been reviewed. Medications: Reviewed: Yes Vitals/I&O/Wt Last Vital Signs Temp 96.4 F L 05/14/21 10:36 Pulse 80 05/14/21 10:36 Resp 17 05/14/21 10:36 BP 100/68 05/14/21 10:36 Pulse Ox 93 05/14/21 10:36 05/13/21 05/14/21 05/14/21 22:59 06:59 14:59 Intake Total 786.25 / 2715.00 730 / 3445.00 360 / 360 Output Total 250 / 250 375 / 625 Balance 536.25 / 2465.00 355 / 2820.00 360 / 360 Weight last 48 hrs Weight 77.428 kg Weight 79.152 kg Physical Exam Const: COMMON NORMALS: patient oriented x3 HENMT: COMMON NORMALS: normocephalic and atraumatic HEAD & SCALP: normocephalic and atraumatic Chest: CHEST: Yes Symmetrical chest wall rise Resp: COMMON NORMALS: normal respiratory effort and clear to auscultation bilaterally EFFORT & INSPECTION: Yes symmetric chest movement AUSCULTATION: clear to auscultation bilaterally Cardio: COMMON NORMALS: regular rate, regular rhythm, S1 normal heart sound present, S2 normal heart sound present, No gallops present (Cardio), No murmurs present (Cardio), No rub (Cardio) and Peripheral pulses 2+ throughout RATE: regular rate RHYTHM: regular rhythm HEART SOUNDS: S1 normal heart sound present and S2 normal heart sound present PERIPHERAL PULSES: Peripheral pulses 2+ throughout GI: COMMON NORMALS: Normal to inspection, nondistended, normoactive bowel sounds present, Soft to palpation, non-tender, No hepatosplenomegaly present and no masses AUSCULTATION: Yes normoactive bowel sounds PALPATION: Yes Soft to palpation and Yes No hepatosplenomegaly present RECTAL EXAM: deferred Extremity: COMMON NORMALS: no clubbing, cyanosis or edema and no pedal edema Neuro: COMMON NORMALS: patient oriented x3 Urinary Catheter Management^: Rothman: Cath Placed During This Visit: yes Reason for Continuing Indwelling Catheter: Other Urinary Catheter Date of Insertion: 05/02/21 Urinary Catheter Time of Insertion: 21:14 Data : 05/14/21 06:30 05/14/21 06:30 A&P Assessment and plan (1) Pulmonary embolism: stable IVC filter placed continue eliquis Status: Acute Qualifiers: Pulmonary embolism type: unspecified Chronicity: acute Acute cor pulmonale presence: unspecified Qualified Code(s): I26.99 - Other pulmonary embolism without acute cor pulmonale (2) Bilateral breast cancer: followup with Oncology Status: Acute (3) Bloody stool: CT abd/pelvis - pseudomembranous coliitis C-dfif negative Initially on flagyl has been switched to zosyn Improving Status: Acute (4) Chronic diarrhea: Status: Chronic Additional A&P Information #hematochezia -- hold anticoagulation if worsening h/h -- Monitor h/h -- Improving -- S/p scope : Moderate diffuse inflammation was seen, throughout the colon, colonic mucosa is erythematous, granular and friable, with spontaneous mucosal bleeding. -She was started on solumedrol 60 mg i.v q6 h daily but has been stopped. #Hypokalemia -- Replace. -- BMP now #hypoxemia --taper O2 #weakness --PT #bilateral breast cancer --oncology followup --discussed with Dr. Rascon, had curative treatment Attestations Medical Necessity Statement*: Patient needs to be in hospital for the management of acute P/E and DVT and the need for monitoring of hematochezia as she is on full anticoagulation. 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
--- NOTE | 2021-05-14 16:25 | PC.NURSE ---
Notified Dr Gamez that patient had 150ml output today.
[2021-05-15] VITALS (13 sets, daily range): BP systolic 82–131; BP diastolic 52–78; PULSE 78–101; RESP 14–18; TEMP 35.8–36.9; O2SAT 92–98
[2021-05-15 02:56] LABS: Basophils # 0.1 10^3/uL (0.0-0.1); Basophils % 1.6 %; Eosinophils # 0.3 10^3/uL (0.0-0.8); Eosinophils % 5.9 %; Hematocrit 32.5 % (37.0-47.0); Lymphocytes # 0.7 10^3/uL (0.8-4.8); Lymphocytes % 14.9 %; Mean Corpuscular HGB Conc 30.8 g/dL (30.0-36.0); Mean Corpuscular Hemoglobin 34.1 pg (28.0-34.0); Mean Corpuscular Volume 110.9 fL (81-99); Mean Platelet Volume 10.2 fL (7.4-10.4); Monocytes # 0.6 10^3/uL (0.2-0.9); Monocytes % 11.9 %; Neutrophils # 3.22 10^3/uL (1.8-7.7); Neutrophils % 65.1 %; Nucleated Red Blood Cells % 0 %; Platelet Count 159 10^3/cmm (130-400); Red Blood Count 2.93 10^6/uL (4.1-5.3); Red Cell Distribution Width 16.9 % (12.1-15.1)
[2021-05-15 03:17] LABS: Alanine Aminotransferase 12 U/L (0-33); Albumin Level 1.9 g/dL (3.5-5.2); Alkaline Phosphatase 111 IU/L (35-105); Aspartate Amino Transferase 15 U/L (0-32); Blood Urea Nitrogen 10 mg/dL (8-23); C Reactive Protein 6.3 mg/L (0.0-4.9); Calcium 7.5 mg/dL (8.5-10.5); Carbon Dioxide 22 mmol/L (22-29); Chloride 107 mmol/L (98-107); Globulin 3.1 g/dL (1.3-4.6); Glomerular Filtration Rate 49.2 mL/min (90-130); Glucose 89 mg/dL (65-115); Osmolality Calculated 281 mOsm/kg (285-295); Sodium 136 mmol/L (136-145); Total Bilirubin 0.4 mg/dL (0.15-1.2)
[2021-05-15 03:55] LABS: Erythrocyte Sedimentation Rate 12 mm/hr (0-15)
[2021-05-15] MEDS: apixaban 5 mg Tablet 10 MG PO ×2 (09:26→20:21)
[2021-05-15] MEDS: lactobacillus 1 Tablet 1 TAB PO ×2 (09:26→17:10)
[2021-05-15] MEDS: potassium chloride ER 20 mEq Tablet 40 MEQ PO (09:27)
[2021-05-15] MEDS: piperacillin-tazobactam 3.375 GM in sodium chloride 0.9% (plus) 100 ML IV ×2 (09:27→15:25)
[2021-05-15] MEDS: pantoprazole 40 mg SDV IVP ×2 (09:27→22:19)
[2021-05-15] MEDS: sucralfate 1 gm Tablet PO ×4 (09:27→20:22)
[2021-05-15] MEDS: levothyroxine 125 mcg Tablet PO (09:48)
--- NOTE | 2021-05-15 11:27 | PC.NURSE ---
BM 200ML OF BLOODY STOOL NOTED
--- NOTE | 2021-05-15 11:55 | PM.PN ---
Subjective Subjective: Interval history: Patient was seen and examined this morning, she has continued to have bloody stool atleat 3/4 times.H/H is hanging around . Her other vitals and labs have been reviewed. Medications: Reviewed: Yes Vitals/I&O/Wt Last Vital Signs Temp 97.6 F 05/15/21 11:30 Pulse 90 05/15/21 11:30 Resp 18 05/15/21 11:30 BP 100/64 05/15/21 11:30 Pulse Ox 92 05/15/21 11:30 05/14/21 05/15/21 05/15/21 22:59 06:59 14:59 Intake Total 600 / 1300 920 / 2220 600 / 600 Output Total 175 / 175 325 / 500 200 / 200 Balance 425 / 1125 595 / 1720 400 / 400 Weight last 48 hrs Weight 78.608 kg Weight 77.428 kg Physical Exam Const: COMMON NORMALS: patient oriented x3 HENMT: COMMON NORMALS: normocephalic and atraumatic HEAD & SCALP: normocephalic and atraumatic Chest: CHEST: Yes Symmetrical chest wall rise Resp: COMMON NORMALS: normal respiratory effort and clear to auscultation bilaterally EFFORT & INSPECTION: Yes symmetric chest movement AUSCULTATION: clear to auscultation bilaterally Cardio: COMMON NORMALS: regular rate, regular rhythm, S1 normal heart sound present, S2 normal heart sound present, No gallops present (Cardio), No murmurs present (Cardio), No rub (Cardio) and Peripheral pulses 2+ throughout RATE: regular rate RHYTHM: regular rhythm HEART SOUNDS: S1 normal heart sound present and S2 normal heart sound present PERIPHERAL PULSES: Peripheral pulses 2+ throughout GI: COMMON NORMALS: Normal to inspection, nondistended, normoactive bowel sounds present, Soft to palpation, non-tender, No hepatosplenomegaly present and no masses AUSCULTATION: Yes normoactive bowel sounds PALPATION: Yes Soft to palpation and Yes No hepatosplenomegaly present RECTAL EXAM: deferred Extremity: COMMON NORMALS: no clubbing, cyanosis or edema and no pedal edema Neuro: COMMON NORMALS: patient oriented x3 Urinary Catheter Management^: Rothman: Cath Placed During This Visit: yes Reason for Continuing Indwelling Catheter: Acute Urinary Retention or Obstruction Urinary Catheter Date of Insertion: 05/02/21 Urinary Catheter Time of Insertion: 21:14 Data : 05/15/21 02:44 05/15/21 02:44 A&P Assessment and plan (1) Pulmonary embolism: stable IVC filter placed continue eliquis Status: Acute Qualifiers: Pulmonary embolism type: unspecified Chronicity: acute Acute cor pulmonale presence: unspecified Qualified Code(s): I26.99 - Other pulmonary embolism without acute cor pulmonale (2) Bilateral breast cancer: followup with Oncology Status: Acute (3) Bloody stool: CT abd/pelvis - pseudomembranous coliitis C-dfif negative Initially on flagyl has been switched to zosyn Status: Acute (4) Chronic diarrhea: Status: Chronic Additional A&P Information #hematochezia -- hold anticoagulation if worsening h/h -- Monitor h/h -- Improving -- S/p scope : Moderate diffuse inflammation was seen, throughout the colon, colonic mucosa is erythematous, granular and friable, with spontaneous mucosal bleeding. -She was started on solumedrol 60 mg i.v q6 h daily but has been stopped. #Hypokalemia -- Replace. -- BMP now #hypoxemia --taper O2 #weakness --PT #bilateral breast cancer --oncology followup --discussed with Dr. Rascon, had curative treatment Attestations Medical Necessity Statement*: Patient needs to be in hospital for the management of management of colitis, PE, anemia, hematochezia. Coding Level of Care Code Acute Crutcher Helper for Chg Fwd Diagnoses Pulmonary embolism I26.99 Pulmonary embolism type: unspecified Chronicity: acute Acute cor pulmonale presence: unspecified Bilateral breast cancer C50.911; C50.912 Bloody stool K92.1 Chronic diarrhea K52.9
[2021-05-15] MEDS: sodium chloride 0.9% 1,000 ML 30 ML IV (13:29)
--- NOTE | 2021-05-15 13:37 | PC.SOCIAL ---
IMM updated Pg 2 of IMM updated and reviewed with pt. She verbalized an understanding. No questions, copy provided.
[2021-05-15] MEDS: loperamide 2 mg Capsule 4 MG PO (20:20)
[2021-05-16] VITALS (7 sets, daily range): BP systolic 90–102; BP diastolic 62–67; PULSE 71–90; RESP 16–22; TEMP 36.3–36.6; O2SAT 86–97
[2021-05-16] MEDS: piperacillin-tazobactam 3.375 GM in sodium chloride 0.9% (plus) 100 ML IV ×2 (00:24→08:10)
[2021-05-16] MEDS: levothyroxine 125 mcg Tablet PO (05:50)
[2021-05-16] MEDS: loperamide 2 mg Capsule 4 MG PO ×2 (08:02→12:38)
[2021-05-16] MEDS: potassium chloride ER 20 mEq Tablet 40 MEQ PO (08:02)
[2021-05-16] MEDS: lactobacillus 1 Tablet 1 TAB PO (08:02)
[2021-05-16] MEDS: pantoprazole 40 mg SDV IVP (08:02)
[2021-05-16] MEDS: apixaban 5 mg Tablet 10 MG PO (08:02)
[2021-05-16] MEDS: sucralfate 1 gm Tablet PO ×2 (08:02→12:38)
[2021-05-16] MEDS: sodium chloride 0.9% 1,000 ML 75 ML IV (08:11)
[2021-05-16 08:49] LABS: Basophils # 0.1 10^3/uL (0.0-0.1); Basophils % 2.7 %; Eosinophils # 0.3 10^3/uL (0.0-0.8); Eosinophils % 7.2 %; Hematocrit 33.2 % (37.0-47.0); Hemoglobin 10.4 g/dL (11.5-15.3); Lymphocytes # 0.6 10^3/uL (0.8-4.8); Lymphocytes % 14.9 %; Mean Corpuscular HGB Conc 31.3 g/dL (30.0-36.0); Mean Corpuscular Hemoglobin 34.3 pg (28.0-34.0); Mean Corpuscular Volume 109.6 fL (81-99); Mean Platelet Volume 10.6 fL (7.4-10.4); Monocytes # 0.4 10^3/uL (0.2-0.9); Monocytes % 9.9 %; Neutrophils # 2.68 10^3/uL (1.8-7.7); Neutrophils % 64.6 %; Nucleated Red Blood Cells % 0 %; Platelet Count 133 10^3/cmm (130-400); Red Blood Count 3.03 10^6/uL (4.1-5.3); Red Cell Distribution Width 16.9 % (12.1-15.1); White Blood Count 4.2 10^3/uL (4.0-10.0)
[2021-05-16 08:57] LABS: Alanine Aminotransferase 10 U/L (0-33); Alkaline Phosphatase 98 IU/L (35-105); Anion Gap 11.5 (5-19); Aspartate Amino Transferase 15 U/L (0-32); Blood Urea Nitrogen 7 mg/dL (8-23); Calcium 7.6 mg/dL (8.5-10.5); Carbon Dioxide 21 mmol/L (22-29); Chloride 106 mmol/L (98-107); Glucose 73 mg/dL (65-115); Osmolality Calculated 277 mOsm/kg (285-295); Potassium 3.5 mmol/L (3.5-5.1); Sodium 135 mmol/L (136-145); Total Bilirubin 0.4 mg/dL (0.15-1.2)
[2021-05-16 10:10] LABS: Slide Review Slide Review Perform
--- NOTE | 2021-05-16 11:20 | P.DS_ITS ---
Discharge Providers Date of Admission: 05/02/21 22:10 Date of Discharge: May 16, 2021 Attending Provider at Admission: Cyndi Chicas MD Attending Provider at Discharge: Navdeep Gamez MD Primary Care Provider: FABY Howard Diagnoses at Discharge Discharge Diagnosis (1) Pulmonary embolism: Status: Acute Qualifiers: Pulmonary embolism type: unspecified Chronicity: acute Acute cor pulmonale presence: unspecified Qualified Code(s): I26.99 - Other pulmonary embolism without acute cor pulmonale (2) Bilateral breast cancer: Status: Acute (3) Bloody stool: Status: Acute (4) Chronic diarrhea: Status: Chronic Reason for Visit Reason for Visit: WEAKNESS/ CANCER PT Physical Exam Urinary Catheter Management^: Rothman: Cath Placed During This Visit: yes Reason for Continuing Indwelling Catheter: Acute Urinary Retention or Obstruction Urinary Catheter Date of Insertion: 05/02/21 Urinary Catheter Time of Insertion: 21:14 Discharge Data Data Completed and Pending: Completed Studies During Hospitalization Category Date Time Status CT abdomen pelvis w con* [id number] Rout ine Cat Scan 05/10/21 13:[address] angio chest w abd pel w con Stat Cat Scan 05/02/21 19:01 Completed XR chest 1V [place]y ble [id number] Urgent Exams 05/02/21 17:51 Completed Pathology: Surgic al [PTH] Routine Pth 05/13/21 11:56 [place] [id number] Routin e Ultrasound 05/03/21 23:36 Completed CV. echo complete * [id number] Routine Ultrasound 05/03/21 08:03 Completed Pending at discharge Category Date Time Status PHOTO MANAGER request for service Routin e Exams 05/03/21 15:52 Taken Labs from last 24 hours 05/16/21 05/16/21 08:23 08:23 WBC 4.2 RBC 3.03 L Hgb 10.4 L Hct 33.2 L MCV 109.6 H MCH 34.3 H MCHC 31.3 RDW 16.9 H Plt Count 133 MPV 10.6 H Neut % (Auto) 64.6 Lymph % (Auto) 14.9 [place] % (Auto) 9.9 Eos % (Auto) 7.2 Baso % (Auto) 2.7 Neut # (Auto) 2.68 Lymph # (Auto) 0.6 L [place] # (Auto) 0.4 Eos # (Auto) 0.3 Baso # (Auto) 0.1 Nucleated RBC % (a uto) 0 Nucleated RBCs # 0.0 Sodium 135 L Potassium 3.5 Chloride 106 Carbon Dioxide 21 L Anion Gap 11.5 BUN 7 L Creatinine 1.0 H GFR Calculation 55.0 L Glucose 73 Calculated Osmolal ity 277 L Calcium 7.6 L Total Bilirubin 0.4 AST 15 ALT 10 Alkaline Phosphata se 98 Total Protein 5.0 L Albumin 2.0 L Globulin 3.0 Vitals: Last Vital Signs Temp 97.8 F 05/16/21 07:42 Pulse 90 05/16/21 11:10 Resp 22 H 05/16/21 07:42 BP 91/62 05/16/21 07:42 Pulse Ox 94 05/16/21 11:10 Discharge Plan Discharge Patient Disposition: Home Condition: Stable Prescriptions: New Protonix 40 mg tablet,delayed release (DR/EC) 40 mg PO BID Qty: 60 RF: 1 Eliquis 5 mg tablet 5 mg PO BID Qty: 60 RF: 3 Continued anastrozole 1 mg Tablet 1 mg PO DAILY RF: 0 levothyroxine [Euthyrox] 125 mcg tablet 125 mcg PO DAILY RF: 0 furosemide 40 mg tablet 40 mg PO DAILY PRN (Reason: swelling) RF: 0 potassium chloride 10 mEq tablet extended release 20 meq PO BID PRN (Reason: with lasix) RF: 0 gabapentin 300 mg capsule 300 mg PO BID RF: 0 Other Ambulatory Orders: Complete Blood Count w/Auto (Routine) Timeframe: 1 Week Location: Determined by Patient Ordered By: Navdeep Gamez Referrals: [facility] [place] Home Care ([facility]) [Outside] Mahin Duarte MD [Physician] - 2 weeks Discharge Diet: Regular Patient Instructions: Opioid Safety Coding Level of Care Code Acute Chg [facility] note Diagnoses Pulmonary embolism I26.99 Pulmonary embolism type: unspecified Chronicity: acute Acute cor pulmonale presence: unspecified Bilateral breast cancer C50.911; C50.912 Bloody stool K92.1 Chronic diarrhea K52.9
--- NOTE | 2021-05-21 13:12 | W.PM.OPSFHP ---
Same Day Surgery H&P Indication for Procedure/HPI DATE OF PROCEDURE: May 21, 2021 CHIEF COMPLAINT/INDICATIONFOR SURGICAL PROCEDURE: Hematochezia PREOP DIAGNOSIS: IVC filter placement for inability to take anticoagulation in a hemodynamic PLANNED PROCEDRUE: Operation Date: 05/03/21 16:30 Proposed Procedures p IVC Filter Insertion(Not Applicable) - Etta Fernando MD Operation Date: 05/13/21 10:45 Proposed Procedures p Colonoscopy(Not Applicable) - Mahin Duarte MD Medications/Allergies* Home Medications Medication Instructions Recorded Confirmed Type furosemide 40 mg PO DAILY PRN 11/16/19 05/03/21 History gabapentin 300 mg PO BID 11/16/19 05/03/21 History potassium chloride 20 meq PO BID PRN 11/16/19 05/03/21 History anastrozole 1 mg PO DAILY 09/25/20 05/03/21 History levothyroxine [Euthyrox] 125 mcg PO DAILY 05/01/21 05/03/21 History Allergies/Adverse Reactions Allergy/AdvReac Type Severity Reaction Status Date / Time codeine Allergy Unknown Unknown Verified 05/20/21 15:19 sulfa Allergy Unknown Unknown Uncoded 05/20/21 15:19 Pertinent History/Comorbid Conditions* Medical History (Updated 05/20/21 @ 21:51 by Navdeep Gamez MD) Acute massive pulmonary embolism (05/02/21) Bilateral breast cancer 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 Is with Dr. Rascon. Right breast was grade 1 stage IIa (ypT1c, YPN2A, M0), ER/ID positive and HER-2/nu negative. Left breast was grade 3 stage at least 1B (ypT2, YPN2A, M0), ER/ID positive and HER-2/bernadine positive. Chemotherapy stopped after 4 cycles due to toxicity. Had modified radical mastectomy bilaterally and underwent prophylactic chest wall radiation. Bilateral breast cancer Bloody stool Chest pressure Chronic diarrhea Drug-induced peripheral neuropathy Chemotherapy History of blood transfusion History of DVT (deep vein thrombosis) Left lower extremity, approximately 10 years ago, preceded first cancer diagnosis History of endometrial cancer Status post hysterectomy and bilateral salpingo-oophorectomy with postoperative HDR implant radiation in 2014 Hypotension Hypothyroidism Metabolic acidosis Obstructive cardiovascular shock Port-A-Cath in place Post-radiation pneumonitis Pulmonary embolism (05/02/21) Pulmonary hypertension Surgical History (Updated 05/02/21 @ 21:29 by Cyndi Chicas MD) History of colonoscopy (~09/2020) History of hernia repair History of hysterectomy Status post bilateral mastectomy Family History (Updated 05/02/21 @ 22:50 by Cyndi Chicas MD) Cancer Mother Denies family history of Clotting disorder Social History Alcohol intake: former Former alcohol use details: Previously drank beer regularly but none in about a year Lives independently: Yes Household members: none Pertinent Exam Findings alert, oriented x 3, clear to auscultation bilaterally, regular rate & rhythm, operative site marked and procedure specific exam findings Recommendations Surgery/Procedure today Coding Level of Care Code Acute Verifying Specialist for Dawood Barrientos
== END 2021-05-16 14:40 | disposition home health service (06) | DRG 175 ==
LOC: ER 18:20 → ICU 22:11 → MEDSURG 05-08 21:44
PROVIDERS: Hospitalist; Internal Medicine; Internal Medicine Cardiovascular Disease; Internal Medicine Critical Care Medicine; Student in an Organized Health Care Education/Training Program; Admitting Provider Hospitalist; Emergency Provider Family Medicine; PCP Nurse Practitioner Family; Visit Provider Internal Medicine
PROC: (CPT 37191; principal; 2021-05-03 16:30)
PROC: 0DJD8ZZ Inspection of Lower Intestinal Tract, Via Natural or Artificial Opening Endoscopic (ICD-10-PCS; CPT 45378; principal; 2021-05-13 10:45)
DX: I26.99 Other pulmonary embolism without acute cor pulmonale (principal); N17.0 Acute kidney failure with tubular necrosis; R57.0 Cardiogenic shock; K92.1 Melena; I82.431 Acute embolism and thrombosis of right popliteal vein; I82.890 Acute embolism and thrombosis of other specified veins; E87.2 Acidosis; I31.3 Pericardial effusion (noninflammatory); R18.8 Other ascites; K51.40 Inflammatory polyps of colon without complications; A04.72 Enterocolitis due to Clostridium difficile, not specified as recurrent; K52.9 Noninfective gastroenteritis and colitis, unspecified; I27.20 Pulmonary hypertension, unspecified; I95.9 Hypotension, unspecified; E87.6 Hypokalemia; E83.42 Hypomagnesemia; D64.9 Anemia, unspecified; D69.6 Thrombocytopenia, unspecified; I51.89 Other ill-defined heart diseases; E87.70 Fluid overload, unspecified; R09.02 Hypoxemia; J43.9 Emphysema, unspecified; C50.912 Malignant neoplasm of unspecified site of left female breast; C50.911 Malignant neoplasm of unspecified site of right female breast; E03.9 Hypothyroidism, unspecified; R41.82 Altered mental status, unspecified; Z79.811 Long term (current) use of aromatase inhibitors; Z86.718 Personal history of other venous thrombosis and embolism; Z87.891 Personal history of nicotine dependence; Z17.0 Estrogen receptor positive status [ER+]; Z90.13 Acquired absence of bilateral breasts and nipples; Z92.3 Personal history of irradiation; Z85.42 Personal history of malignant neoplasm of other parts of uterus; Z90.710 Acquired absence of both cervix and uterus; Z95.9 Presence of cardiac and vascular implant and graft, unspecified; Z92.21 Personal history of antineoplastic chemotherapy
CPT/HCPCS: 36010; 36415; 36591; 36600; 37191; 45380; 45385; 51702; 71045; 71275; 74177; 80048; 80053; 81001; 82274; 82805; 83605; 83630; 83690; 83735; 83880; 84100; 84145; 84443; 84484; 85025; 85049; 85610; 85651; 85730; 86140; 87040; 87493; 87506; 88305; 93005; 93306; 93970; 94664; 96361; 96365; 96366; 96367; 96372; 96374; 96375; 97110; 97162; 97530; 99284; 99291; C1760; C1769; C1880; C1887; C1894; C9113; J1644; J1650; J1940; J2250; J2405; J2543; J2704; J2930; J2997; J3010; J3370; J3475; J7030; J7040; J7050; Q9967; S0030

== ENCOUNTER 2021-05-20 10:41 | Outpatient (CLI) | payer MEDICARE, OTHER, SELFPAY ==
[2021-05-20 10:55] LABS: Basophils # 0.1 10^3/uL (0.0-0.1); Basophils % 1.6 %; Eosinophils % 0.5 %; Hematocrit 33.3 % (37.0-47.0); Hemoglobin 10.7 g/dL (11.5-15.3); Lymphocytes # 0.6 10^3/uL (0.8-4.8); Mean Corpuscular HGB Conc 32.1 g/dL (30.0-36.0); Mean Corpuscular Hemoglobin 35.2 pg (28.0-34.0); Mean Corpuscular Volume 109.5 fL (81-99); Mean Platelet Volume 10.8 fL (7.4-10.4); Monocytes # 0.3 10^3/uL (0.2-0.9); Monocytes % 6.9 %; Neutrophils # 2.85 10^3/uL (1.8-7.7); Neutrophils % 75.2 %; Nucleated Red Blood Cells % 0 %; Platelet Count 114 10^3/cmm (130-400); Red Blood Count 3.04 10^6/uL (4.1-5.3); Red Cell Distribution Width 18.5 % (12.1-15.1); White Blood Count 3.8 10^3/uL (4.0-10.0)
--- NOTE | 2021-05-20 21:49 | P.DS_ITS ---
Discharge Providers Date of Discharge: May 20, 2021 Attending Provider at Discharge: Navdeep Gamez MD Primary Care Provider: FABY Howard Diagnoses at Discharge Discharge Diagnosis (1) Acute massive pulmonary embolism: Status: Acute (2) History of DVT (deep vein thrombosis): Status: Acute Permanent problem details: Left lower extremity, approximately 10 years ago, preceded first cancer diagnosis (3) Anemia: Status: Acute (4) Hypothyroidism: Status: Acute (5) Bloody stool: Status: Acute (6) Chronic diarrhea: Status: Acute Reason for Visit Reason for Visit: other pulmonary embolism w/out acute Hospital Course Hospital Course 71 year old female with pmh of Ca Breast ( Infiltrating ductal carcinoma, b/l ) , hypothyroidism, endometrial cancer ( Status post hysterectomy and bilateral salpingo-oophorectomy with postoperative HDR implant radiation in 2014) , h/o dvt came to the ER with c/o chest pressure. On arrival she was tachycardic.Initial blood pressure was 120s but subsequently dropped significantly. She was hypoxic requiring oxygen therapy.She received a couple liters of fluid. EKG showed nonspecific changes but no ST elevation. Initial troponin was 100. BNP was greater than 7000. CTA of the chest was done and ended up showing bilateral PE with severe right heart strain. She continued to be tachycardic and hypotensive despite fluids. Lactic acid was elevated. She was requiring oxygen therapy. Ultimately decision was made, after extensive discussion with patient and her daughter, to administer TPA. Cardiology and pulmonology was on board . She required initiation of pressors. She does have a history of breast cancer and is on anastrozole. About 10 years ago she had a blood clot in her right lower extremity.She was admitted for the management of Ac massive pulmonary embolism with obstructive shock.During the hospital stay she was also found to have right popliteal peroneal great saphenous vein near saphenofemoral junction DVT, after initiation of anticoagulation ( lovenox awitched to heparin ) she developed G/I Bleed and hence cardiology came in board for IVC Filter placement.s/p IVC filter placement on 05/03.During the hospital stay she continued to have bloody stool for which she underwent colonoscopy after brief interruption in anticoagulation, colonoscopy was suggestive of possible U/C Moderate diffuse inflammation was seen, throughout the colon, colonic mucosa is erythematous, granular and friable, with spontaneous mucosal bleeding.for which she was also kept briefly on steriods which was later discontinued C.T abdomen commented the possibility of PMC ( Pseudomembarneros collitis ). She was kept on I.V Abxs which included initially metronidazole and ciprofloxacin it was later switched to zosyn as she recently was on metro and cipro as outpatient, I,V abxs were aimed at both Possible PMC as well possible U/C Flare details of biopsy result is pending.C.Diff was negative.She has h/o chronic diarrhea.Prior to discharge her anticoagulation was reinstated she was discharged on eliquis at the time of discharge her H/H was stable. At the time of discharge she was also requiring 4 Ls oxygen likely 2/2 to Recent acute p/e possibility of pulmonary hypertension cannot be ruled out .She responded well to the above medical management and is being discharged in stable condition.She will continue to follow cardiology, pcp , oncology as well as pulmonary medicine as outpatient. Physical Exam Const: COMMON NORMALS: patient oriented x3 HENMT: COMMON NORMALS: normocephalic and atraumatic HEAD & SCALP: normocephalic and atraumatic Resp: COMMON NORMALS: No use of accessory muscles and clear to auscultation bilaterally AUSCULTATION: clear to auscultation bilaterally Cardio: COMMON NORMALS: regular rate, regular rhythm, S1 normal heart sound present, S2 normal heart sound present, No gallops present (Cardio), No murmurs present (Cardio), No rub (Cardio) and Peripheral pulses 2+ throughout RATE: regular rate RHYTHM: regular rhythm HEART SOUNDS: S1 normal heart sound present and S2 normal heart sound present PERIPHERAL PULSES: Peripheral pulses 2+ throughout GI: COMMON NORMALS: Normal to inspection, nondistended, normoactive bowel gilmar nds present, Soft to palpation, non-tender, No hepatosplenomegaly present and no masses AUSCULTATION: Yes normoactive bowel sounds PALPATION: Yes Soft to palpation and Yes No hepatosplenomegaly present RECTAL EXAM: deferred Extremity: COMMON NORMALS: no clubbing, cyanosis or edema and no pedal edema Neuro: COMMON NORMALS: patient oriented x3 Discharge Data Data Completed and Pending: Labs from last 24 hours 05/20/21 10:20 WBC 3.8 L RBC 3.04 L Hgb 10.7 L Hct 33.3 L MCV 109.5 H MCH 35.2 H MCHC 32.1 RDW 18.5 H Plt Count 114 L MPV 10.8 H Neut % (Auto) 75.2 Lymph % (Auto) 15.0 [place] % (Auto) 6.9 Eos % (Auto) 0.5 Baso % (Auto) 1.6 Neut # (Auto) 2.85 Lymph # (Auto) 0.6 L [place] # (Auto) 0.3 Eos # (Auto) 0.0 Baso # (Auto) 0.1 Nucleated RBC % (a uto) 0 Nucleated RBCs # 0.0 Discharge Plan Discharge Prescriptions: No Action anastrozole 1 mg Tablet 1 mg PO DAILY RF: 0 levothyroxine [Euthyrox] 125 mcg tablet 125 mcg PO DAILY RF: 0 furosemide 40 mg tablet 40 mg PO DAILY PRN (Reason: swelling) RF: 0 potassium chloride 10 mEq tablet extended release 20 meq PO BID PRN (Reason: with lasix) RF: 0 gabapentin 300 mg capsule 300 mg PO BID RF: 0 Protonix 40 mg tablet,delayed release (DR/EC) 40 mg PO BID Qty: 60 RF: 1 Eliquis 5 mg tablet 5 mg PO BID Qty: 60 RF: 3 Lactobacillus acidoph-L.bulgar 1 million cell Tablet 1 tab PO BID 7 Days Qty: 14 RF: 0 Discharge Attestations Time Spent in Discharge Care*: greater than 30 min Specific Discharge Activities: educating patient, educating and/or supporting family/caregiver, discussing with pcp/other providers, discussing with case filler/social workers/dc planners, documenting/other paperwork and evaluating patient/reviewing data Status at Discharge: Cognitive status at discharge: cognitively intact , Behavioral status at discharge: cooperative , Functional status at discharge: independent ambulation Overall status at discharge: patient is back to baseline Quality Metrics Clinical Quality Measures During this hospital stay, did patient experience: None Coding Level of Care Code Acute Chg [facility] note Diagnoses Acute massive pulmonary embolism I26.99 History of DVT (deep vein thrombosis) Z86.718 Anemia D64.9 Hypothyroidism E03.9 Bloody stool K92.1 Chronic diarrhea K52.9
== END 2021-05-20 10:42 | disposition home or self-care (01) ==
LOC: LAB 10:42
PROVIDERS: PCP Nurse Practitioner Family; Visit Provider Internal Medicine
DX: I26.99 Other pulmonary embolism without acute cor pulmonale (principal)
CPT/HCPCS: 85025

== ENCOUNTER 2021-07-08 13:38 | Outpatient (CLI) | payer MEDICARE, OTHER, SELFPAY ==
[2021-07-08 14:50] LABS: Basophils % 0.3 %; Eosinophils % 0.2 %; Hematocrit 32.7 % (37.0-47.0); Hemoglobin 10.2 g/dL (11.5-15.3); Lymphocytes # 0.2 10^3/uL (0.8-4.8); Lymphocytes % 3.2 %; Mean Corpuscular HGB Conc 31.2 g/dL (30.0-36.0); Mean Corpuscular Volume 105.8 fl (81-99); Mean Platelet Volume 11.5 fL (7.4-10.4); Monocytes # 0.1 10^3/uL (0.2-0.9); Monocytes % 1.8 %; Neutrophils # 6.06 10^3/uL (1.8-7.7); Neutrophils % 93.1 %; Nucleated Red Blood Cells % 0 %; Platelet Count 146 10^3/cmm (130-400); Red Blood Count 3.09 10^6/uL (4.1-5.3); Red Cell Distribution Width 14.1 % (12.1-15.1); White Blood Count 6.5 10^3/uL (4.0-10.0)
[2021-07-08 15:06] LABS: Alanine Aminotransferase 18 U/L (0-33); Albumin Level 2.8 g/dL (3.5-5.2); Alkaline Phosphatase 187 IU/L (35-105); Anion Gap 17.2 (5-19); Aspartate Amino Transferase 17 U/L (0-32); Blood Urea Nitrogen 30 mg/dL (8-23); Carbon Dioxide 21 mmol/L (22-29); Chloride 103 mmol/L (98-107); Globulin 2.4 g/dL (1.3-4.6); Glomerular Filtration Rate 37.3 mL/min (90-130); Glucose 121 mg/dL (65-115); Osmolality Calculated 293 mOsm/kg (285-295); Potassium 3.2 mmol/L (3.5-5.1); Sodium 138 mmol/L (136-145); Thyroid Stimulating Hormone 0.48 uIU/mL (0.27-4.20); Total Bilirubin 0.6 mg/dL (0.15-1.2); Total Protein 5.2 g/dL (6.6-8.7)
== END 2021-07-08 13:39 | disposition home or self-care (01) ==
PROVIDERS: PCP Nurse Practitioner Family; Visit Provider Internal Medicine Hematology & Oncology
DX: C50.811 Malignant neoplasm of overlapping sites of right female breast (principal); Z17.0 Estrogen receptor positive status [ER+]; D64.9 Anemia, unspecified; Z86.718 Personal history of other venous thrombosis and embolism
CPT/HCPCS: 36591; 80053; 84443; 85025

== ENCOUNTER 2021-07-09 06:04 | Outpatient (CLI) | payer MEDICARE, OTHER, SELFPAY ==
--- NOTE | 2021-07-09 15:40 | ONC FU_ITS ---
Dr. Rascon Patient Follow-Up Note Patient: Bee Zheng Unit #: [id number]: 1950 Dicatated By: Tab Rascon M.D.Date of Visit:Jul 09, 2021 Onc Med Follow-up/Prog Note Chief Complaint: Bilateral breast cancer. History of Present Illness: This is a 70 year-old woman with bilateral invasive breast cancer, both locally advanced. The right breast was grade 1 infiltrating ductal carcinoma, post treatment stage IIA (ypT1c, ypN2a, M0), ER/AL positive and HER-2/bernadine negative. The left breast cancer was grade 3 infiltrating ductal carcinoma, post treatment stage at least IB (ypT2, ypN2a, M0), ER/AL positive and HER-2/bernadine positive. She had presented with gradually worsening swelling and firmness in her breasts after she had sustained a chest injury in a fall about 9 months ago. Bilateral mammograms on 03/23/2019 were BI-RADS 5, highly suggestive of malignancy. Findings included areas of dense asymmetry in the central right breast measuring 3.5 cm and in the central left breast measuring 4.5 by 3.9 cm. The right breast ultrasound showed an irregular hypoechoic mass at 12:00, middle depth, measuring 3.5 x 2.2 cm. Also noted was eccentric thickening of a lymph node in the right axilla. The left breast ultrasound showed a large amount of shadowing within the central breast mass containing calcifications at 12:00, measuring 4.6 x 3.7 cm. There were small benign-appearing lymph nodes on the left. She underwent bilateral ultrasound-guided biopsies on 04/06/2019. The left breast showed grade 3 infiltrating ductal carcinoma with a minor DCIS component. The breast prognostic profile showed ER positive at 87% and AL positive at 72%. There was overexpression of HER-2/bernadine, 3+ by IHC and amplification ratio by FISH of 2.3 with 7.0 HER-2 copies/cell. The Ki-67 was unfavorable at 22%. The right breast showed grade 2 infiltrating ductal carcinoma. A subsequent prognostic profile on the right breast biopsy showed ER positive at 87% and AL positive at 21%. That tumor was negative for overexpression of HER-2/bernadine, 1+ by IHC and amplification ratio by FISH of 1.0 with 2.4 HER-2 copies/cell. Staging PET/CT on 05/07/2019 showed FDG avid right breast lesion measuring 2.1 cm, SUV 13.7, and a solitary hypermetabolic right axillary lymph node with SUV 5.3, consistent with local metastatic disease. Other right axillary lymph nodes were too small to characterize by PET. The left breast showed 2 nearly contiguous lesions, the more dominant measuring 2.5 x 3.8 cm with SUV 8.3. The more inferior and lateral lesion measured 1.3 x 1.5 cm with SUV 11.7. Left axillary lymph nodes were too small to characterize by PET. There were no areas of uptake to suggest any other metastatic disease. A needle biopsy of the right axillary lymph node on 05/19/2019 showed metastatic carcinoma most consistent with breast primary. Given those findings and with HER-2/bernadine positive disease in the left breast, she was recommended to undergo neoadjuvant chemotherapy with TCH-P. On 06/02/2019 she began cycle 1 of neoadjuvant chemotherapy with TCH-P. She tolerated the treatment without acute toxicity. She subsequently developed pretty severe diarrhea, beginning around a 3 or 4. It lasted for 2 weeks. She continued with cycle 2 on 06/28/2019. That treatment was complicated by a pretty severe skin eruption, and she continued to have diarrhea. With cycle 3 on 07/26/2019 I did opt to omit the docetaxel. With had cycle there was no recurrence of skin eruption, but she continued to have severe diarrhea. With cycle 4, on 08/23/2019, I opted to admit the Perjeta and replace the taxane portion of her chemotherapy with Abraxane. On 08/29/2019 she was admitted to the hospital with severe pancytopenia. She continued to have diarrhea and she also developed significant liver dysfunction. She required transfusion of PRBC and platelets. She had uneventful recovery of her white blood cell count, but she continued to have severe thrombocytopenia at discharge, requiring additional outpatient platelet pheresis. I had seen her for a follow-up visit on 09/20/2019. Given the multiple toxicities she had experienced, I opted not to attempt any further chemotherapy. A restaging PET/CT on 09/24/2019 showed primary right breast carcinoma measuring 1.6 cm with SUV 4.6, significantly improved from the prior study. The solitary right axillary lymph node had resolved. The nearly contiguous left breast lesions were reported to have SUV of 3.1, also representing a significant response to therapy. At her follow-up visit on 10/25/2019 she still had very limited activity, and she also continued to have significant lower extremity edema. At that point her treatment remained on hold. Her medical history is otherwise significant in that she had presented in 2014 anemia, severe enough to require transfusion. This was ultimately determined to be due to endometrial cancer, for which she underwent hysterectomy/bilateral salpingo-oophorectomy. Those records are not available at this time. She indicates that there was no lymph node involvement. She apparently did receive postoperative radiation with HDR implant. There has been no evidence of recurrence of the endometrial cancer. At her follow-up visit on 11/01/2019 she had recovered sufficiently to resume treatment with single agent Herceptin at a 3-week dosing schedule. She tolerated it without significant toxicity. On 11/17/2019 she underwent bilateral modified radical mastectomies. Pathology on the left breast showed grade 2 invasive ductal carcinoma, multifocal, with the largest focus measuring 2.8 cm in maximum diameter. There was invasion into the dermis, but without skin ulceration. There was a small component of nuclear grade 1 ductal carcinoma in situ. The margins were negative. There was involvement in 6 of 8 axillary lymph nodes with the largest metastatic deposit measuring 6 mm. Pathologic staging was ypT2, ypN2a. The right breast showed grade 1 invasive ductal carcinoma measuring 1.3 cm in maximum diameter. There was an extensive component of nuclear grade 2 intraductal cancer, estimated at 13 mm. The margins were uninvolved. There was involvement in 8 of 8 axillary lymph nodes with the largest metastatic deposit measuring 5 mm. Pathologic staging was ypT1c, ypN2a. She had no complications with the surgery. She was able to continue single agent Herceptin at the 3- week dosing schedue. As of 12/13/2019 she had received her 3rd cycle. During that time she did show gradual improvement in her neuropathy and performance status. As of her visit on 01/03/2020 I opted to change her systemic therapy to Kadcyla at 3.6 mg/kg by IV infusion. At that time, she also began adjuvant hormonal therapy with anastrozole 1 mg daily. She tolerated the initial infusion of Kadcyla with no adverse effects. She continued with cycle 2 on 01/24/2020, and she began chest wall radiation on 01/25/2020. Her 3rd cycle of Kadcyla was delayed due to neutropenia. She went on to complete radiation on 03/06/2020, 5040 cGy to each chest wall. She had then presented with increased shortness of breath. Her CT pulmonary angiogram on 04/09/2020 showed no evidence for pulmonary embolus. She was small right pleural and pericardial effusions, which were new. The most significant finding was fibrotic appearing airspace infiltrates in the mid and upper lungs anteriorly, also new. The findings were felt to be most consistent with radiation pneumonitis. She began on steroid therapy. As of her follow-up visit on 05/01/2020, she was showing clinical improvement, and her prednisone dosage was decreased to 10 mg daily. Her restaging CT scans on 05/31/2020 showed moderate chronic emphysematous changes, with no acute pulmonary infiltrates. 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 There was also mild but stable dilatation of the main pulmonary arteries. There was no evidence of metastatic disease in the chest, abdomen, or pelvis. With those findings, she continued adjuvant hormonal therapy with anastrozole. I did not attempt to restart Kadcyla or Herceptin. During follow-up her prednisone dosage was gradually tapered. At her scheduled visit on 08/13/2020 she reported new onset of rectal bleeding. Colonoscopy by Dr. Pompa was unrevealing. As of her follow-up visit on 03/07/2021 she continued to have somewhat marginal performance status. She was still having some diarrhea and some neuropathy symptoms, but there was no evidence of recurrence of her breast cancer. She continued adjuvant hormonal therapy with anastrozole 1 mg daily. Her other medical illnesses include hypertension and hypothyroidism. She has a history of smoking 1-2 packs of cigarettes daily for 50 years. She quit smoking in 2014. She has alcohol use of at least a 6-pack of beer daily. INTERIM HISTORY: On 05/02/2021 she was admitted to the hospital with extensive bilateral pulmonary emboli. There was associated severe right heart strain, and she was treated with TPA followed by Lovenox. Her further clinical course was complicated by acute GI bleeding, for which she underwent placement of IVC filter. A repeat colonoscopy on 05/13/2021 showed a couple of tiny sessile polyps in the mid transverse colon. There is moderate diffuse inflammation involving the entire colon. Biopsy showed severe chronic active colitis with cryptitis and crypt abscesses. A splenic flexure polyp was noted to be an inflammatory polyp. On 05/16/2021 she was discharged home on anticoagulation with apixaban 5 mg twice daily. During subsequent follow-up with Dr. Duarte she was started on steroid therapy for the colitis with subsequent addition of mesalamine. She is seen now for a follow-up visit. She continues to have significant fatigue, though she is able to do some housework. Her ECOG score is 1. She has had good appetite on the prednisone. She does not have fever or night sweats. She has some sinus drainage and a dry cough. Her breathing is still labored with activity, but overall it has improved. She has not been having chest pain. She sometimes has nausea. She still has some diarrhea with her bowels fluctuating between squirty and somewhat formed stools. Lately they have not been as good as they had been. She has not been aware of any more blood in the stool, though. Bladder function has been okay. She continues to have pain and weakness in her legs associated with the neuropathy. Medications: Anastrozole 1 Tablet (of 1 mg) Oral daily, Apixaban 1 Tablet (of 5 mg) Oral b.i.d., Calcium + D3 1 Tablet Oral daily, Imodium A-D 2 Tablet (of 2 mg) Oral b.i.d. PRN, Lasix 1 Tablet (of 40 mg) Oral daily PRN, Levothyroxine Sodium 1 (112 mcg) Tablet Oral daily, Mesalamine (1.2 g) Tablet, enteric coated Oral daily, Potassium Chloride ER 1 Tablet (of 10 meq) Tablet, controlled release Oral daily, Prochlorperazine Maleate 1 Tablet (of 10 mg) Oral q 4 hours PRN Allergies: Levaquin Vital Signs: Performed on Jul 09, 2021 09:38 Height - 66.00 in Weight - 150 lbs (LOW) BSA - 1.77 sq.m BMI - 24.21 Temperature - 97.9 F (LOW) Pulse - 120 /min (HIGH) Respiration - 20 /min BP - 115/77 mm(hg) Pain - 0 Fatigue - 0 Physical Examination: Constitutional - She appears somewhat weak generally, Eyes - Sclerae nonicteric. Conjunctivae clear, ENMT - No lesions noted in the oral cavity, Hematologic/Lymphatic - No cervical or clavicular adenopathy, Respiratory - Lungs sound clear, Cardiovascular - Heart rhythm appears regular with mild tachycardia. There is no murmur noted. She appears to have either a split S1 or an S4 gallop, Breasts - There are no chest wall lesions noted. There is no axillary adenopathy, Abdomen - Soft. Liver and spleen are not enlarged. There is no abdominal mass or ascites noted and there is no inguinal adenopathy, Extremities - There are mild venous stasis changes bilaterally. There is mild lower extremity edema. There is a fairly large area of purpura on the right lower leg. There are small purpuric lesions on both arms, Neurologic - She has weakness in both legs. There are no focal neurologic deficits noted. Lab/Imaging: CBC shows hemoglobin 10.2 g, white blood cell count 6500, and platelet count 146,000. Comprehensive metabolic profile shows some decline in renal function with BUN 30 and creatinine 1.4 mg/dL. Bilirubin, SGOT, and SGPT are normal. The alkaline phosphatase is mildly elevated at 187/105 IU/L. TSH is in the low normal range at 0.48 ???IU/mL. Problem List: 1. Bilateral invasive breast cancer, both locally advanced. The right breast cancer was grade 1 infiltrating ductal carcinoma, post treatment stage IIA (ypT1c, ypN2a, M0), ER/AL positive and HER-2/bernadine negative. The left breast cancer was grade 3 infiltrating ductal carcinoma, post treatment stage at least IB (ypT2, ypN2a, M0), ER/AL positive and HER-2/bernadine positive. The chemotherapy was stopped after 4 cycles due to toxicity. She underwent modified radical mastectomy bilaterally on 11/17/2019. 3. She has residual chemotherapy related neuropathy. 4. She had persistent diarrhea following the chemotherapy, and she ultimately was diagnosed with ulcerative colitis. 5. She was hospitalized with extensive bilateral pulmonary emboli in April 2021. She remains on anticoagulation with apixaban. 6. She had acute GI bleed following treatment with TPA, requiring placement of inferior vena cava filter. 7. Hypertension. 8. Hypothyroidism. 9. She has a history of endometrial cancer for which she underwent hysterectomy/bilateral salpingo-oophorectomy and postoperative HDR implant radiation in 2014. Problems Addressed with this Encounter and Plan: 1. Patient with bilateral invasive breast cancer, both locally advanced. The right breast cancer was grade 1 infiltrating ductal carcinoma, post treatment stage IIA (ypT1c, ypN2a, M0), ER/AL positive and HER-2/bernadine negative. The left breast cancer was grade 3 infiltrating ductal carcinoma, post treatment stage at least IB (ypT2, ypN2a, M0), ER/AL positive and HER-2/bernadine positive. She underwent bilateral ultrasound directed breast biopsies on 04/06/2019, and she underwent ultrasound directed needle biopsy of a right axillary lymph node on 05/19/2019. Her subsequent breast cancer treatment included: 1. Neoadjuvant chemotherapy with TCH-P for 4 cycles 08/23/2019, stopped due to multiple toxicities, including peripheral neuropathy.. 2. Herceptin monotherapy beginning 11/01/2019. 3. Modified radical mastectomy bilaterally on 11/17/2019. 4. Adjuvant hormonal therapy with anastrozole 1 mg daily beginning 01/03/2020. 5. Kadcyla for 2 cycles, on 01/03/2020 and 01/24/2020, stopped due to toxicity. 6. Prophylactic chest wall radiation, completed on 03/06/2020 to 5040 cGy to each chest wall. During followup she has continued to have somewhat marginal performance status and she has had a complicated clinical course. Thus far there has been no evidence of recurrence of the breast cancer. She continues adjuvant hormonal therapy with anastrozole 1 mg daily. I will see her again in 3 months. 2. She has treatment related peripheral neuropathy with associated disability. She continues symptomatic management with gabapentin. 3. She had continued diarrhea following her chemotherapy, and she had some associated rectal bleeding. Her initial colonoscopy was unrevealing, but on repeat colonoscopy in April 2021 she was found to have evidence of ulcerative colitis. She is currently on treatment with prednisone and mesalamine. 4. In April 2021 she was hospitalized with extensive bilateral pulmonary emboli. She had associated right heart strain, and she did receive TPA. She is now on anticoagulation with apixaban. She continues to have shortness of breath and lower extremity edema, and I suspect she has a component of congestive heart failure. I am going to repeat her echocardiogram. She will have further evaluation as indicated. Signed By: Tab Rascon M.D. <<Signature on File>>
== END 2021-07-09 06:05 | disposition home or self-care (01) ==
PROVIDERS: PCP Nurse Practitioner Family; Visit Provider Internal Medicine Medical Oncology
DX: C50.112 Malignant neoplasm of central portion of left female breast (principal); C50.811 Malignant neoplasm of overlapping sites of right female breast; Z17.0 Estrogen receptor positive status [ER+]; G62.0 Drug-induced polyneuropathy; R60.1 Generalized edema; T45.1X5S Adverse effect of antineoplastic and immunosuppressive drugs, sequela; K52.1 Toxic gastroenteritis and colitis; K62.5 Hemorrhage of anus and rectum; Z79.52 Long term (current) use of systemic steroids; Z86.711 Personal history of pulmonary embolism; Z79.01 Long term (current) use of anticoagulants; Z79.899 Other long term (current) drug therapy; Z79.811 Long term (current) use of aromatase inhibitors
CPT/HCPCS: 99214

== ENCOUNTER 2021-08-02 15:37 | Outpatient (CLI) | payer MEDICARE, OTHER, SELFPAY ==
--- NOTE | 2021-08-02 15:45 | USCV_ITS ---
Bee Zheng Age: 71 Gender: F : 1950 Exam Date: 08/02/2021 16:10 Ordering Phys: Oralia Berumen MD ([email or web address]) Technologist: Gris Aguilar [place] [facility] [place]: Cor pulmonale, sob, edema BP: 116 / 88 HR: 90 Rhythm: Sinus Technical Quality: Technically difficult study MEASUREMENTS (Male / Female) Normal Values 2D ECHO LV Diastolic Diameter PLAX 3.1 cm 4.2 - 5.9 / 3.9 - 5.3 cm LV Systolic Diameter PLAX 1.2 cm IVS Diastolic Thickness 1.4 cm 0.6 - 1.0 / 0.6 - 0.9 cm IVS Systolic Thickness 1.4 cm LVPW Diastolic Thickness 1.1 cm 0.6 - 1.0 / 0.6 - 0.9 cm LVPW Systolic Thickness 1.4 cm LVOT Diameter 1.9 cm LV Ejection Fraction 2D Teich 91.6 % LV Ejection Fraction MOD 2C 67.4 % LV Ejection Fraction 2C AL 66.4 % LA Diameter 2.9 cm LA Width 2.9 cm LA Height 6.0 cm RA Width 4.1 cm RA Height 4.6 cm Aorta at Sinotubular Diameter 2.9 cm DOPPLER AV Peak Velocity 131.0 cm/s LVOT Peak Velocity 75.0 cm/s AV Area Cont Eq vti 2.0 cm squared AV Area Cont Eq pk 1.7 cm squared MV Peak Velocity 106.0 cm/s MV Area PHT 3.8 cm squared Mitral E to A Ratio 0.6 MV E' Velocity 60.0 cm/s TR Peak Velocity 88.3 cm/s TR Peak Gradient 3.1 mmHg Right Atrial Pressure 3.0 mmHg Pulmonary Artery Systolic Pressu 6.1 mmHg PV Peak Velocity 65.0 cm/s RV Acceleration Time 0.1 s RV Ejection Time 0.2 s RV AcT/ET 0.5 FINDINGS Left Ventricle Normal left ventricular cavity size. Normal left ventricular systolic function. Left ventricular ejection fraction is estimated at 55-60 %. No diagnostic regional wall motion abnormality. Abnormal septal motion. Grade I diastolic dysfunction (abnormal relaxation filling pattern), normal to mildly elevated filling pressures. Right Ventricle Probably normal right ventricle size and systolic function. Right ventricular systolic pressure 8 mmHg. Right Atrium Right atrium not well visualized. Left Atrium Left atrium not well visualized. Mitral Valve Mildly thickened mitral valve. Aortic Valve Mildly thickened and calcified probably trileaflet aortic valve. No aortic valve stenosis. No significant aortic valve regurgitation. Tricuspid Valve Structurally normal tricuspid valve. Trace tricuspid valve regurgitation. Pulmonic Valve Pulmonic valve not well visualized. Possibly dilated pulmonary artery measured at 4 cm. Pericardium No pericardial effusion. Echo free space anterior to the right ventricle likely represents a fat pad. Aorta Normal-sized aortic root and ascending aorta. Normal-sized inferior vena cava. CONCLUSIONS 1. This is a technically difficult study inspite of using Optison was used prior per protocol. 2. Normal left ventricular cavity size and systolic function. Left ventricular ejection fraction is estimated at 55-60 %. No diagnostic regional wall motion abnormality. Abnormal septal motion. Grade I diastolic dysfunction (abnormal relaxation filling pattern), normal to mildly elevated filling pressures. 3. Probably normal right ventricle size and systolic function. 4. Possibly dilated pulmonary artery measured at 4 cm. 5. Direct comparison to previous study is not possible due to technically difficult study. Oralia Berumen MD (Electronically Signed) Final Date: 05 August 2021 19:24 S
[2021-08-02] MEDS: perflutren protein-a microsphr 0.22 mg/mL SDV 3 mL IV (17:06)
== END 2021-08-02 15:38 | disposition home or self-care (01) ==
LOC: US 15:40
PROVIDERS: PCP Nurse Practitioner Family; Visit Provider Internal Medicine Medical Oncology
DX: I50.9 Heart failure, unspecified (principal); R06.02 Shortness of breath; R60.0 Localized edema; I51.9 Heart disease, unspecified
CPT/HCPCS: C8929

== ENCOUNTER 2021-08-16 11:02 | Outpatient (CLI) | payer MEDICARE, OTHER, SELFPAY ==
[2021-08-16 12:38] LABS: Basophils % 0.3 %; Eosinophils % 0.6 %; Hematocrit 32.8 % (37.0-47.0); Hemoglobin 9.7 g/dL (11.5-15.3); Lymphocytes # 0.4 10^3/uL (0.8-4.8); Lymphocytes % 5.8 %; Mean Corpuscular HGB Conc 29.6 g/dL (30.0-36.0); Mean Corpuscular Hemoglobin 28.5 pg (28.0-34.0); Mean Corpuscular Volume 96.5 fl (81-99); Monocytes # 0.4 10^3/uL (0.2-0.9); Monocytes % 5.6 %; Neutrophils # 6.27 10^3/uL (1.8-7.7); Neutrophils % 86.3 %; Nucleated Red Blood Cells % 0 %; Platelet Count 149 10^3/cmm (130-400); Red Cell Distribution Width 15.8 % (12.1-15.1); White Blood Count 7.3 10^3/uL (4.0-10.0)
[2021-08-16 13:24] LABS: Alanine Aminotransferase 19 U/L (0-33); Albumin Level 2.9 g/dL (3.5-5.2); Alkaline Phosphatase 211 IU/L (35-105); Anion Gap 13.1 (5-19); Aspartate Amino Transferase 19 U/L (0-32); Blood Urea Nitrogen 22 mg/dL (8-23); Calcium 8.6 mg/dL (8.5-10.5); Carbon Dioxide 28 mmol/L (22-29); Chloride 99 mmol/L (98-107); Ferritin 47 ng/mL (15-150); Globulin 2.4 g/dL (1.3-4.6); Glucose 84 mg/dL (65-115); Iron 37 ug/dL (37-145); Lactate Dehydrogenase 263 U/L (135-214); NT Pro B Type Natriuretic Pept 3116 pg/mL (0-125); Osmolality Calculated 287 mOsm/kg (285-295); Percent Saturation 13.8 % (20-50); Potassium 3.1 mmol/L (3.5-5.1); Sodium 137 mmol/L (136-145); Total Iron Binding Capacity 268 mcg/dl; Total Protein 5.3 g/dL (6.6-8.7); Unsaturated Iron Binding 231 ug/dL (112-347)
[2021-08-17 07:53] LABS: CA 27.29 67 U/mL (<38)
[2021-08-19 10:22] LABS: Erythrocyte Sedimentation Rate 6 mm/hr (0-15)
== END 2021-08-16 11:03 | disposition home or self-care (01) ==
LOC: ONCMED 11:03
PROVIDERS: PCP Nurse Practitioner Family; Visit Provider Internal Medicine Medical Oncology
DX: C50.812 Malignant neoplasm of overlapping sites of left female breast (principal); C50.811 Malignant neoplasm of overlapping sites of right female breast; Z17.0 Estrogen receptor positive status [ER+]; D69.59 Other secondary thrombocytopenia; D70.1 Agranulocytosis secondary to cancer chemotherapy; T45.1X5D Adverse effect of antineoplastic and immunosuppressive drugs, subsequent encounter; I10 Essential (primary) hypertension
CPT/HCPCS: 36591; 80053; 82728; 83540; 83550; 83615; 83880; 85025; 85651; 86300

== ENCOUNTER 2021-08-19 06:52 | Outpatient (CLI) | payer MEDICARE, OTHER, SELFPAY ==
--- NOTE | 2021-08-19 20:31 | ONC FU_ITS ---
Dr. Rascon Patient Follow-Up Note Patient: Bee Zheng Unit #: [id number]: 1950 Dicatated By: Tab Rascon M.D.Date of Visit:Aug 19, 2021 Onc Med Follow-up/Prog Note Chief Complaint: Bilateral breast cancer. History of Present Illness: This is a 70 year-old woman with bilateral invasive breast cancer, both locally advanced. The right breast was grade 1 infiltrating ductal carcinoma, post treatment stage IIA (ypT1c, ypN2a, M0), ER/NH positive and HER-2/bernadine negative. The left breast cancer was grade 3 infiltrating ductal carcinoma, post treatment stage at least IB (ypT2, ypN2a, M0), ER/NH positive and HER-2/bernadine positive. She had presented with gradually worsening swelling and firmness in her breasts after she had sustained a chest injury in a fall about 9 months ago. Bilateral mammograms on 03/23/2019 were BI-RADS 5, highly suggestive of malignancy. Findings included areas of dense asymmetry in the central right breast measuring 3.5 cm and in the central left breast measuring 4.5 by 3.9 cm. The right breast ultrasound showed an irregular hypoechoic mass at 12:00, middle depth, measuring 3.5 x 2.2 cm. Also noted was eccentric thickening of a lymph node in the right axilla. The left breast ultrasound showed a large amount of shadowing within the central breast mass containing calcifications at 12:00, measuring 4.6 x 3.7 cm. There were small benign-appearing lymph nodes on the left. She underwent bilateral ultrasound-guided biopsies on 04/06/2019. The left breast showed grade 3 infiltrating ductal carcinoma with a minor DCIS component. The breast prognostic profile showed ER positive at 87% and NH positive at 72%. There was overexpression of HER-2/bernadine, 3+ by IHC and amplification ratio by FISH of 2.3 with 7.0 HER-2 copies/cell. The Ki-67 was unfavorable at 22%. The right breast showed grade 2 infiltrating ductal carcinoma. A subsequent prognostic profile on the right breast biopsy showed ER positive at 87% and NH positive at 21%. That tumor was negative for overexpression of HER-2/bernadine, 1+ by IHC and amplification ratio by FISH of 1.0 with 2.4 HER-2 copies/cell. Staging PET/CT on 05/07/2019 showed FDG avid right breast lesion measuring 2.1 cm, SUV 13.7, and a solitary hypermetabolic right axillary lymph node with SUV 5.3, consistent with local metastatic disease. Other right axillary lymph nodes were too small to characterize by PET. The left breast showed 2 nearly contiguous lesions, the more dominant measuring 2.5 x 3.8 cm with SUV 8.3. The more inferior and lateral lesion measured 1.3 x 1.5 cm with SUV 11.7. Left axillary lymph nodes were too small to characterize by PET. There were no areas of uptake to suggest any other metastatic disease. A needle biopsy of the right axillary lymph node on 05/19/2019 showed metastatic carcinoma most consistent with breast primary. Given those findings and with HER-2/bernadine positive disease in the left breast, she was recommended to undergo neoadjuvant chemotherapy with TCH-P. On 06/02/2019 she began cycle 1 of neoadjuvant chemotherapy with TCH-P. She tolerated the treatment without acute toxicity. She subsequently developed pretty severe diarrhea, beginning around a 3 or 4. It lasted for 2 weeks. She continued with cycle 2 on 06/28/2019. That treatment was complicated by a pretty severe skin eruption, and she continued to have diarrhea. With cycle 3 on 07/26/2019 I did opt to omit the docetaxel. With had cycle there was no recurrence of skin eruption, but she continued to have severe diarrhea. With cycle 4, on 08/23/2019, I opted to admit the Perjeta and replace the taxane portion of her chemotherapy with Abraxane. On 08/29/2019 she was admitted to the hospital with severe pancytopenia. She continued to have diarrhea and she also developed significant liver dysfunction. She required transfusion of PRBC and platelets. She had uneventful recovery of her white blood cell count, but she continued to have severe thrombocytopenia at discharge, requiring additional outpatient platelet pheresis. I had seen her for a follow-up visit on 09/20/2019. Given the multiple toxicities she had experienced, I opted not to attempt any further chemotherapy. A restaging PET/CT on 09/24/2019 showed primary right breast carcinoma measuring 1.6 cm with SUV 4.6, significantly improved from the prior study. The solitary right axillary lymph node had resolved. The nearly contiguous left breast lesions were reported to have SUV of 3.1, also representing a significant response to therapy. At her follow-up visit on 10/25/2019 she still had very limited activity, and she also continued to have significant lower extremity edema. At that point her treatment remained on hold. Her medical history is otherwise significant in that she had presented in 2014 anemia, severe enough to require transfusion. This was ultimately determined to be due to endometrial cancer, for which she underwent hysterectomy/bilateral salpingo-oophorectomy. Those records are not available at this time. She indicates that there was no lymph node involvement. She apparently did receive postoperative radiation with HDR implant. There has been no evidence of recurrence of the endometrial cancer. At her follow-up visit on 11/01/2019 she had recovered sufficiently to resume treatment with single agent Herceptin at a 3-week dosing schedule. She tolerated it without significant toxicity. On 11/17/2019 she underwent bilateral modified radical mastectomies. Pathology on the left breast showed grade 2 invasive ductal carcinoma, multifocal, with the largest focus measuring 2.8 cm in maximum diameter. There was invasion into the dermis, but without skin ulceration. There was a small component of nuclear grade 1 ductal carcinoma in situ. The margins were negative. There was involvement in 6 of 8 axillary lymph nodes with the largest metastatic deposit measuring 6 mm. Pathologic staging was ypT2, ypN2a. The right breast showed grade 1 invasive ductal carcinoma measuring 1.3 cm in maximum diameter. There was an extensive component of nuclear grade 2 intraductal cancer, estimated at 13 mm. The margins were uninvolved. There was involvement in 8 of 8 axillary lymph nodes with the largest metastatic deposit measuring 5 mm. Pathologic staging was ypT1c, ypN2a. She had no complications with the surgery. She was able to continue single agent Herceptin at the 3- week dosing schedue. As of 12/13/2019 she had received her 3rd cycle. During that time she did show gradual improvement in her neuropathy and performance status. As of her visit on 01/03/2020 I opted to change her systemic therapy to Kadcyla at 3.6 mg/kg by IV infusion. At that time, she also began adjuvant hormonal therapy with anastrozole 1 mg daily. She tolerated the initial infusion of Kadcyla with no adverse effects. She continued with cycle 2 on 01/24/2020, and she began chest wall radiation on 01/25/2020. Her 3rd cycle of Kadcyla was delayed due to neutropenia. She went on to complete radiation on 03/06/2020, 5040 cGy to each chest wall. She had then presented with increased shortness of breath. Her CT pulmonary angiogram on 04/09/2020 showed no evidence for pulmonary embolus. She was small right pleural and pericardial effusions, which were new. The most significant finding was fibrotic appearing airspace infiltrates in the mid and upper lungs anteriorly, also new. The findings were felt to be most consistent with radiation pneumonitis. She began on steroid therapy. As of her follow-up visit on 05/01/2020, she was showing clinical improvement, and her prednisone dosage was decreased to 10 mg daily. Her restaging CT scans on 05/31/2020 showed moderate chronic emphysematous changes, with no acute pulmonary infiltrates. 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 There was also mild but stable dilatation of the main pulmonary arteries. There was no evidence of metastatic disease in the chest, abdomen, or pelvis. With those findings, she continued adjuvant hormonal therapy with anastrozole. I did not attempt to restart Kadcyla or Herceptin. During follow-up her prednisone dosage was gradually tapered. At her scheduled visit on 08/13/2020 she reported new onset of rectal bleeding. Colonoscopy by Dr. Pompa was unrevealing. As of her follow-up visit on 03/07/2021 she continued to have somewhat marginal performance status. She was still having some diarrhea and some neuropathy symptoms, but there was no evidence of recurrence of her breast cancer. She continued adjuvant hormonal therapy with anastrozole 1 mg daily. Her other medical illnesses include hypertension and hypothyroidism. She has a history of smoking 1-2 packs of cigarettes daily for 50 years. She quit smoking in 2014. She has alcohol use of at least a 6-pack of beer daily. INTERIM HISTORY: On 05/02/2021 she was admitted to the hospital with extensive bilateral pulmonary emboli. There was associated severe right heart strain, and she was treated with TPA followed by Lovenox. Her further clinical course was complicated by acute GI bleeding, for which she underwent placement of IVC filter. A repeat colonoscopy on 05/13/2021 showed a couple of tiny sessile polyps in the mid transverse colon. There is moderate diffuse inflammation involving the entire colon. Biopsy showed severe chronic active colitis with cryptitis and crypt abscesses. A splenic flexure polyp was noted to be an inflammatory polyp. On 05/16/2021 she was discharged home on anticoagulation with apixaban 5 mg twice daily. During subsequent follow-up with Dr. Duarte she was started on steroid therapy for the colitis with subsequent addition of mesalamine. At her follow-up visit on 07/09/2021 she had no obvious recurrence of breast cancer, which she was having more swelling and more shortness of breath. Her repeat echocardiogram on 08/02/2021 showed normal left ventricular systolic function with estimated ejection fraction 55 to 60%. There was grade 1 diastolic dysfunction. There was no pericardial effusion. She is seen for a follow-up visit. She continues to complain that she is weak and shaky. She is still able to do housework. ECOG score is 1. Her appetite is variable. She has been losing weight gradually. She does not have fever or night sweats. She has some cough associated with sinus drainage. She is short of breath with activity. She is using oxygen at night. She does not complain of chest pain. She occasionally has nausea. She continues to have diarrhea. Bladder function has been okay. She has weakness and she has neuropathy pain in both legs. She sometimes gets lightheaded. Medications: Anastrozole 1 Tablet (of 1 mg) Oral daily, Apixaban 1 Tablet (of 5 mg) Oral b.i.d., Calcium + D3 1 Tablet Oral daily, Furosemide (40 mg) Tablet Oral Take as Directed, Imodium A-D 2 Tablet (of 2 mg) Oral b.i.d. PRN, Lasix 1 Tablet (of 40 mg) Oral every am, Levothyroxine Sodium 1 (112 mcg) Tablet Oral daily, Mesalamine (1.2 g) Tablet, enteric coated Oral daily, Potassium Chloride ER 1 Tablet (of 10 meq) Tablet, controlled release Oral daily, Prochlorperazine Maleate 1 Tablet (of 10 mg) Oral q 4 hours PRN Allergies: Levaquin Vital Signs: Performed on Aug 19, 2021 16:31 Height - 66.00 in Weight - 148.8 lbs (LOW) BSA - 1.76 sq.m BMI - 24.02 Temperature - 98.4 F Pulse - 105 /min (HIGH) Respiration - 18 /min BP - 92/64 mm(hg) O2 Sat - 95 % (LOW) Pain - 0 Fatigue - 5 Physical Examination: Constitutional - She appears generally weak and she appears short of breath with effort, Eyes - Sclerae nonicteric. Conjunctivae clear, ENMT - No lesions noted in the oral cavity, Hematologic/Lymphatic - No cervical or clavicular adenopathy, Respiratory - Lungs sound clear, Cardiovascular - Heart rhythm is irregular with mild tachycardia. There is no murmur noted, Breasts - There are no chest wall lesions noted. There is no axillary adenopathy, Abdomen - Soft. Liver and spleen are not enlarged. There is no abdominal mass or ascites noted and there is no inguinal adenopathy, Extremities - There are mild venous stasis changes bilaterally. There is 2+ lower extremity edema, Neurologic - She has weakness in both legs. There are no focal neurologic deficits noted. Lab/Imaging: Test performed on Aug 16, 2021 11:27 NT proBNP 3116 pg/mL Ferritin 47 ng/mL Iron 37 mcg/dL LDH (Total) 263 U/L Sodium 137 mmol/L Iron Binding Capacity (TIBC) 268 mcg/dl Potassium 3.1 mmol/L % Iron Saturation 13.8 % Chloride 99 mmol/L CO2 28 mmol/L UIBC 231 mcg/dL Anion Gap 13.1 BUN 22 mg/dL Creatinine 1.0 mg/dL Cr Clearance (Est) 57.0300 mL/min eGFR 55.0 mL/min Glucose 84 mg/dL Osmolality - Calculated 287 mOsm/kg Calcium 8.6 mg/dL Protein, Total 5.3 g/dL Albumin 2.9 g/dL Globulin 2.4 g/dL Bilirubin, Total 1.0 mg/dL ALT (SGPT) 19 U/L AST (SGOT) 19 U/L Alkaline Phosphatase 211 IU/L WBC 7.3 10 3/uL RBC 3.40 10 6/uL HGB 9.7 g/dL HCT 32.8 % MCV 96.5 fl MCH 28.5 pg MCHC 29.6 g/dL RDW 15.8 % Platelet Count 149 10 3/cmm MPV 12.0 fL Neutrophils 6.27 10 3/uL Lymphocytes 0.4 10 3/uL Monocytes 0.4 10 3/uL Eosinophils 0.0 10 3/uL Basophils 0.0 10 3/uL Neutrophil % 86.3 % Lymphocyte % 5.8 % Monocyte % 5.6 % Eosinophil % 0.6 % Basophils % 0.3 % NRBC % 0 % CA 27.29 67 U/mL Problem List: 1. Bilateral invasive breast cancer, both locally advanced. The right breast cancer was grade 1 infiltrating ductal carcinoma, post treatment stage IIA (ypT1c, ypN2a, M0), ER/NH positive and HER-2/bernadine negative. The left breast cancer was grade 3 infiltrating ductal carcinoma, post treatment stage at least IB (ypT2, ypN2a, M0), ER/NH positive and HER-2/bernadine positive. The chemotherapy was stopped after 4 cycles due to toxicity. She underwent modified radical mastectomy bilaterally on 11/17/2019. 3. She has residual chemotherapy related neuropathy. 4. She had persistent diarrhea following the chemotherapy, and she ultimately was diagnosed with ulcerative colitis. 5. She was hospitalized with extensive bilateral pulmonary emboli in April 2021. She remains on anticoagulation with apixaban. 6. She had acute GI bleed following treatment with TPA, requiring placement of inferior vena cava filter. 7. Hypertension. 8. Hypothyroidism. 9. She has a history of endometrial cancer for which she underwent hysterectomy/bilateral salpingo-oophorectomy and postoperative HDR implant radiation in 2014. Problems Addressed with this Encounter and Plan: 1. Patient with bilateral invasive breast cancer, both locally advanced. The right breast cancer was grade 1 infiltrating ductal carcinoma, post treatment stage IIA (ypT1c, ypN2a, M0), ER/NH positive and HER-2/bernadine negative. The left breast cancer was grade 3 infiltrating ductal carcinoma, post treatment stage at least IB (ypT2, ypN2a, M0), ER/NH positive and HER-2/bernadine positive. She underwent bilateral ultrasound directed breast biopsies on 04/06/2019, and she underwent ultrasound directed needle biopsy of a right axillary lymph node on 05/19/2019. Her subsequent breast cancer treatment included: 1. Neoadjuvant chemotherapy with TCH-P for 4 cycles 08/23/2019, stopped due to multiple toxicities, including peripheral neuropathy.. 2. Herceptin monotherapy beginning 11/01/2019. 3. Modified radical mastectomy bilaterally on 11/17/2019. 4. Adjuvant hormonal therapy with anastrozole 1 mg daily beginning 01/03/2020. 5. Kadcyla for 2 cycles, on 01/03/2020 and 01/24/2020, stopped due to toxicity. 6. Prophylactic chest wall radiation, completed on 03/06/2020 to 5040 cGy to each chest wall. During followup she has continued to have somewhat marginal performance status and she has had a complicated clinical course. Thus far there has been no evidence of recurrence of the breast cancer. She continues adjuvant hormonal therapy with anastrozole 1 mg daily. 2. She has treatment related peripheral neuropathy with associated disability. She continues symptomatic management with gabapentin. 3. She had continued diarrhea following her chemotherapy, and she had some associated rectal bleeding. Her initial colonoscopy was unrevealing, but on repeat colonoscopy in April 2021 she was found to have evidence of ulcerative colitis. She has been on treatment with prednisone and mesalamine, but she continues to have diarrhea and she has associated hypokalemia. 4. In April 2021 she was hospitalized with extensive bilateral pulmonary emboli. She had associated right heart strain, and she did receive TPA. She remains on anticoagulation with apixaban. She has since then continued to complain of shortness of breath. Her repeat echocardiogram shows normal left ventricular function and there is just grade 1 diastolic dysfunction. However, her NT-pro-B GUARD MANAGER level is significantly elevated at 3116 pg/mL, consistent with congestive heart failure, and I will make arranges now for her to see a threshing operator. 5. She has gradually worsening anemia. Her serum iron studies show transferrin saturation low at 13.8% and her ferritin is also relatively low at 47 ng/mL, consistent with iron deficiency. She will begin oral iron supplementation with ferrous sulfate. If she does not tolerate it or have adequate response, she will be given the option to have parenteral iron replacement. She will be scheduled for a follow-up visit in 1 month. Signed By: Tab Rascon M.D. <<Signature on File>>
== END 2021-08-19 06:53 | disposition home or self-care (01) ==
LOC: ONCMED 06:53
PROVIDERS: PCP Nurse Practitioner Family; Visit Provider Internal Medicine Medical Oncology
DX: C50.811 Malignant neoplasm of overlapping sites of right female breast (principal); C50.812 Malignant neoplasm of overlapping sites of left female breast; Z17.0 Estrogen receptor positive status [ER+]; K51.90 Ulcerative colitis, unspecified, without complications; I26.99 Other pulmonary embolism without acute cor pulmonale; Z79.01 Long term (current) use of anticoagulants; I10 Essential (primary) hypertension; E03.9 Hypothyroidism, unspecified; Z85.42 Personal history of malignant neoplasm of other parts of uterus; Z92.21 Personal history of antineoplastic chemotherapy; Z79.811 Long term (current) use of aromatase inhibitors
CPT/HCPCS: 99215

== ENCOUNTER 2021-08-19 08:28 | Outpatient (CLI) | payer MEDICARE, OTHER, SELFPAY ==
--- NOTE | 2021-08-19 08:35 | NM_ITS ---
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 TECHNIQUE: Ventilation: 32.9 mCi of Technetium 99 DTPA aerosol inhaled. Perfusion: 5.5 mCi of technetium 99m MAA IV. There is significant deposition of radionuclide centrally on the ventilatory portion. Heterogeneous m inimal distribution of radionuclide otherwise throughout both lungs due to poor ventilation. Moderate elevation of the LEFT hemidiaphragm is unchanged. The perfusion examination is much improved as comp ared to the ventilatory portion. There is heterogeneous uptake and matched defects greatest in the LE FT posterior lobe. There is a single wedge-shaped area which may not be matched seen on the LEFT late ral projection in the upper lung field. NM/IL pul vent and perfus* [id number] IMPRESSION: 1. Single wedge-shaped defect in the posterior LEFT upper lobe. Indeterminate but suspicious for pulmonary embolism. 2. Otherwise chronic elevation of the LEFT hemidiaphragm.
--- NOTE | 2021-08-19 08:59 | XR_ITS ---
WS: [id number] Exam: XR chest 2V* [id number] Date/Time of Exam: 08/19/2021 9:23 AM Reason For Exam: FOLLOW UP VQ SCAN/EVAL CHRONIC THROMBOEMBOLIC PULMONARY HTN Comparison 05/02/2021. The lungs are fully expanded and clear. Chronic elevation of the left diaphragm. Heart size is top li mits normal. Left subclavian central line ends in the lower one third of the SVC in good position. No pleural effusions are seen. An IVC filter is noted. XR/XR chest 2V* [id number] IMPRESSION: 1. No acute cardiopulmonary process. 2. Left subclavian port in satisfactory position.
== END 2021-08-19 08:29 | disposition home or self-care (01) ==
PROVIDERS: PCP Nurse Practitioner Family; Visit Provider Internal Medicine Critical Care Medicine
DX: I27.20 Pulmonary hypertension, unspecified (principal)
CPT/HCPCS: 71046; 78014; A9540; A9567

== ENCOUNTER → 2021-08-22 09:30 | Outpatient (BNVA) | payer MEDICARE, OTHER, SELFPAY | PROVIDERS: PCP Nurse Practitioner Family; Referring Provider Internal Medicine Critical Care Medicine; Visit Provider Internal Medicine Cardiovascular Disease | DX: I50.810 Right heart failure, unspecified (principal); Z01.812 Encounter for preprocedural laboratory examination; Z20.822 Contact with and (suspected) exposure to COVID-19 | CPT/HCPCS: 80048; 85025; 85610; 87635 ==

== ENCOUNTER 2021-08-27 07:33 | Outpatient (CLI) | payer MEDICARE, OTHER, SELFPAY ==
[2021-08-27] VITALS (11 sets, daily range): BP systolic 79–103; BP diastolic 57–74; PULSE 77–105; RESP 16–20; TEMP 36.8–36.9; O2SAT 2–99; BMI 24.7
--- NOTE | 2021-08-27 07:30 | XACV_ITS ---
Ht: 168 cm Wt: 69 kg BSA: 1.81 m2 Gender: Female : 1950 Any Known Allergies: Sulfa Exam Priority: Routine Procedure(s): Procedure Description: Diagnostic procedure Procedure Description: Right Heart Catheterization Procedure Description: O2 saturation [id number], Fernando; Diagnostic Cath Status: Elective Diagnostic Findings * No disease noted in the Left Main, Left Anterior Descending, Right, or Circumflex coronary arteries. * Coronary angiography shows right dominance. Conclusions 1. Right heart cathPulmonary capillary wedge pressure 10 mmHg Right ventricle 52/2 mm Hg Pulmonary artery mean pressure 46 mmHg Right atrial pressure 6 mmHgNo reversibility was noted Cardiac output by Galen 3 L Cardiac index 2.0No significant stepup noted. 2. IVC filter retrieval through right internal jugular vein. After taking access with 6 Maltese sheath, right heart cath was performed. Short 6 Maltese sheath was then exchanged with a long IVC filter removal kit sheath. Snare was introduced through IVC filter retrieval sheath. IVC filter was gently then removed from the body. Patient tolerated procedure well without any complication. Long IVC filter retrieval sheath was removed out of the body and from right internal jugular. Hemostasis was achieved by holding manual pressure. Patient tolerated procedure well without any complication. Please see detailed in the main body of the note. 3. No disease noted in the Left Main, Left Anterior Descending, Right, or Circumflex coronary arteries. Recommendations * Usual post-cath care. Resume anticoagulation from tonight. Pressures Phase:Rest RV : 52 / 2 / 5 @ 8:18:00 AM PA : 76 / 34 ( 51 ) @ 8:03:00 AM 64 / 36 ( 46 ) @ 8:07:00 AM 58 / 31 ( 42 ) @ 8:11:00 AM 56 / 31 ( 41 ) @ 8:15:00 AM 54 / 29 ( 39 ) @ 8:15:00 AM RA : a wave = 7 v wave = 8 mean = 6 @ 8:18:00 AM PCW : a wave = 15 v wave = 13 mean = 10 @ 8:03:00 AM O2 Content Phase:Rest PA : O2 Content O2: 44.0 @ 8:07:00 AM Saturations Phase:Rest AO : 85 @ 8:03:00 AM RA : 49 @ 8:15:00 AM RV : 45 @ 8:11:00 AM PA : 44 @ 8:07:00 AM Cardiac Output Phase:Rest Galen : 3 @ 10:46:41 AM Galen Cardiac Index: 2 @ 10:46:41 AM Flow Phase:Rest Qp : 3 @ 10:46:41 AM Qs : 3 @ 10:46:41 AM Clinical Evaluation EBL: 5mL-10mL Procedural Details Procedure Consent Obtained. Pre-Procedure Time Out. Identified patient by full name and date of as verbalized by the patient/guarantor. Does the consent match the physician's order: Yes. Accurate & Complete Informed Consent: Yes. Inpatient/Outpatient History & Physical on Chart: Yes. If H&P is completed, is and addenduem needed: Yes; If yes, is the addendum complete: Yes. Visualize and Verify Site with Patient/Guarantor: N/A. Relevant Radiology Images available: Yes. Pre-op teaching completed and patient verbalized understanding. The risks, benefits, and alternatives of sedation and/or procedure were discussed by physician. The patient agrees to continue. Procedure started. IV Site on Arrival: 20 gauge in the left anticubital. IV Fluids: 0.9% NaCl at KVO. 0 mL infused prior to packing house laborer. Pre Procedural Pulses: bilateral radial was 1+. Pre Procedural Pulses: bilateral posterior tibial was Doppled. Pre Procedural Pulses: right dorsalis pedis was 2+. Pre Procedural Pulses: left dorsalis pedis was Doppled. Oxygen started at 2liters/min via nasal canula. right jugular was prepped with chloroprep then draped in the usual sterile fashion. Physician notified. Baseline sample Acquired. HR: 86 BPM. Physician arrived. Jey Jeff scrubbing and Shania Tello RN circulating. Physician scrubbed in. Immediate Pre-Procedure Time Out. Correct Patient: Yes; Correct Procedure: Yes; Correct Site: Yes; Correct Patient Position: Yes; Correct Supplies: Yes; Dried Flammable Prep: Yes; Blood Products Available: N/A;. Using ultrasound to obtain jugular access. Lidocaine 1% infiltrated to the right jugular. Venous access obtained with a micropuncture set. [place] MON catheter inserted. Oximetry samples were obtained. Normal venous range: 60-85%. Normal arterial range: 95-100%. Pressure measurements obtained. Respiratory called to pickling grader O2 sats. [place] out. wire inserted through the sheath. 6Fr sheath removed and 12Fr dilator inserted. Dilator removed. IVC retrieval system inserted OTW. IVC Filter removed at this time. Sheath out. Manual Pressure held. Physician scrubbed out. PERRLA. Strong, equal hand kitchen hand bilaterally. No VTE prophylaxis required. Medication's Wasted: Lidocaine 1% = 7 mL. Medication's Wasted: Heparin = 1000 u. Total IV fluids: 310 mL. Complications: none. Estimated blood loss: 5mL-10mL. Procedure completed. Patient transferred by stretcher to Outpatient Surgery. Access Site Site: Right Jugular vein Sheath Size: 6 Fr Hemostasis Success: Unsuccessful Procedure Medications Start: 9:43 AM Stop: 9:43 AM Medication: Versed 1 mg and Fentanyl 25 mcg Amount: 1 Route: I.V. Start: 9:45 AM Stop: 9:45 AM Medication: Versed Amount: 1 mg Route: I.V. Start: 9:50 AM Stop: 9:50 AM Medication: Versed Amount: 1 mg Route: I.V. Start: 10:03 AM Stop: 10:03 AM Medication: Nitrogylcerin Amount: 2 Sprays Route: S.L. Start: 10:08 AM Stop: 10:08 AM Medication: Nitrogylcerin Amount: 2 Sprays Route: S.L. Start: 10:08 AM Stop: 10:08 AM Medication: Versed Amount: 1 mg Route: I.V. Start: 10:17 AM Stop: 10:17 AM Medication: 0.9% Saline Amount: 200 ml Route: I.V. bolus Start: 10:22 AM Stop: 10:22 AM Medication: Versed Amount: 1 mg Route: I.V. I, the attending physician, have reviewed and verified all procedure medications. Yes, all medications given per verbal order History/Risk Factors Hypertension: No Dyslipidemia: No Peripheral Arterial Disease (PAD): No Myocardial Infarction (OR): No Obesity: No Renal Disease: No Tobacco Use: Former Prior Interventions PCI: No CABG: No Valve Surgery: No Report Signatures Finalized by Etta Fernando MD on 09/08/2021 07:24 PM
[2021-08-27 10:24] LABS: Arterial Blood Gas Hematocrit 26.2 % (37-47); Blood Gas Operator Identificat PULM ARTERY; Blood Gas Sample Site Not specified; Blood Gas Sample Type Not specified; Carboxyhemoglobin 1.5 %THgb (0.4-20.1); HGB O2 Sat 42.9 % (95-100); Methemoglobin 0.9 % (0.4-1.5); Total Hemoglobin 8.6 g/dL (12-16)
--- NOTE | 2021-08-27 11:16 | PC.NURSE ---
Cardiac cath flowsheet Right venous access site documentation on cardiac cath flowsheet is referring to right jugular. Patient transferred to PACU for recovery, report given to BK Milton. Site slightly bruised, dressing clean dry and intact without evidence of bleeding or hematoma. Pt HOB at 45 degrees and educated on bedrest status and head elevation.
--- NOTE | 2021-08-27 11:21 | SUR.PHASEII ---
1055 PT IN RECOVERY RM 12, ON MONITOR, HEAD OF BED AT 45 DEGREE, BED REST
--- NOTE | 2021-08-27 12:20 | P.HP_ITS ---
Same Day Surgery H&P Indication for Procedure/HPI DATE OF PROCEDURE: August 27, 2021 Patient underwent IVC filter removal and right heart cath noted to have precapillary moderate pulmonary hypertension which was reversible. IVC filter was removed without any complication. Advised patient to start taking Eliquis from this evening. She will be discharged home. Advised to follow-up with Dr. Berumen in 7 to 10 days. CHIEF COMPLAINT/INDICATIONFOR SURGICAL PROCEDURE: IVC filter removal/right heart cath/pulmonary function PREOP DIAGNOSIS: IVC filter removal/right heart cath for pulmonary hypertension PLANNED PROCEDRUE: Operation Date: 08/27/21 08:30 Proposed Procedures p Cardiac Catheterization(Right) - Etta Fernando MD Medications/Allergies* Home Medications Medication Instructions Recorded Confirmed Type gabapentin 300 mg PO BID 11/16/19 08/27/21 History anastrozole 1 mg PO DAILY 09/25/20 08/26/21 History levothyroxine [Euthyrox] 125 mcg PO DAILY 05/01/21 08/26/21 History furosemide 40 mg tablet 40 mg PO DAILY 08/08/21 08/26/21 History potassium chloride 10 mEq 20 meq PO BID 08/08/21 08/27/21 History tablet,extended release acetaminophen 650 mg PO Q6H PRN 08/26/21 08/26/21 History Allergies/Adverse Reactions Allergy/AdvReac Type Severity Reaction Status Date / Time codeine Allergy Unknown unknown Verified 08/26/21 12:41 sulfa Allergy Unknown unknown Uncoded 08/08/21 09:24 Pertinent History/Comorbid Conditions* Medical History (Updated 08/08/21 @ 10:06 by Devante Markham MD) Acute massive pulmonary embolism (05/02/21) Bilateral breast cancer 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 Is with Dr. Rascon. Right breast was grade 1 stage IIa (ypT1c, YPN2A, M0), ER/RI positive and HER-2/nu negative. Left breast was grade 3 stage at least 1B (ypT2, YPN2A, M0), ER/RI positive and HER-2/bernadine positive. Chemotherapy stopped after 4 cycles due to toxicity. Had modified radical mastectomy bilaterally and underwent prophylactic chest wall radiation. Bilateral breast cancer Bloody stool Chest pressure Chronic diarrhea Drug-induced peripheral neuropathy Chemotherapy History of blood transfusion History of DVT (deep vein thrombosis) Left lower extremity, approximately 10 years ago, preceded first cancer diagnosis History of endometrial cancer Status post hysterectomy and bilateral salpingo-oophorectomy with postoperative HDR implant radiation in 2014 Hypotension Hypothyroidism Metabolic acidosis Obstructive cardiovascular shock Port-A-Cath in place Post-radiation pneumonitis Pulmonary embolism (05/02/21) Pulmonary hypertension Surgical History (Updated 05/22/21 @ 13:17 by Oralia Berumen MD) History of colonoscopy (~09/2020) History of hernia repair History of hysterectomy Status post bilateral mastectomy Family History (Updated 05/02/21 @ 22:50 by Cyndi Chicas MD) Cancer Mother Denies family history of Clotting disorder Social History Quit status (tobacco): has quit using tobacco Year quit tobacco: 2010 Former quit date comment: Hx of 1.5 PPD x 40 Years Second hand smoke exposure: No Smoking risk assessment/counseling performed?: No Alcohol intake: former Former alcohol use details: Previously drank beer regularly but none in about a year Counseling given: No Counseling given: No Lives independently: Yes Household members: none History of recent travel: No Current gender identity: Female Pertinent Exam Findings alert, oriented x 3 and clear to auscultation bilaterally Recommendations Surgery/Procedure today Coding Level of Care Code 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
== END 2021-08-27 14:15 | disposition home or self-care (01) ==
PROVIDERS: PCP Nurse Practitioner Family; Visit Provider Internal Medicine Cardiovascular Disease
PROC: (CPT 37193; principal; 2021-08-27 08:30)
DX: Z45.89 Encounter for adjustment and management of other implanted devices (principal); Z95.828 Presence of other vascular implants and grafts; I27.20 Pulmonary hypertension, unspecified; E03.9 Hypothyroidism, unspecified; Z87.891 Personal history of nicotine dependence; Z86.711 Personal history of pulmonary embolism
CPT/HCPCS: 36415; 37193; 82810; 93451; C1751; C1769; J1644; J2250; J3010; J3490

== ENCOUNTER 2021-09-24 14:00 | Outpatient (CLI) | payer MEDICARE, OTHER, SELFPAY ==
[2021-09-24 15:11] LABS: Basophils % 0.1 %; Hematocrit 31.8 % (37.0-47.0); Hemoglobin 9.3 g/dL (11.5-15.3); Lymphocytes # 0.4 10^3/uL (0.8-4.8); Lymphocytes % 2.5 %; Mean Corpuscular HGB Conc 29.2 g/dL (30.0-36.0); Mean Corpuscular Hemoglobin 26.4 pg (28.0-34.0); Mean Corpuscular Volume 90.3 fl (81-99); Mean Platelet Volume 10.9 fL (7.4-10.4); Monocytes # 0.2 10^3/uL (0.2-0.9); Monocytes % 1.5 %; Neutrophils % 94.8 %; Nucleated Red Blood Cells % 0 %; Platelet Count 181 10^3/cmm (130-400); Red Blood Count 3.52 10^6/uL (4.1-5.3); Red Cell Distribution Width 17.9 % (12.1-15.1); White Blood Count 14.1 10^3/uL (4.0-10.0)
[2021-09-24 16:16] LABS: Alanine Aminotransferase 14 U/L (0-33); Albumin Level 2.9 g/dL (3.5-5.2); Alkaline Phosphatase 133 IU/L (35-105); Anion Gap 18.2 (5-19); Aspartate Amino Transferase 13 U/L (0-32); Blood Urea Nitrogen 27 mg/dL (8-23); CA 15-3 30.6 U/mL (0-25); Calcium 8.1 mg/dL (8.5-10.5); Carbon Dioxide 22 mmol/L (22-29); Chloride 102 mmol/L (98-107); Globulin 1.7 g/dL (1.3-4.6); Glomerular Filtration Rate 40.6 mL/min (90-130); Glucose 176 mg/dL (65-115); Iron 17 ug/dL (37-145); Magnesium 1.4 mg/dL (1.7-2.3); Osmolality Calculated 297 mOsm/kg (285-295); Percent Saturation 5.8 % (20-50); Potassium 3.2 mmol/L (3.5-5.1); Sodium 139 mmol/L (136-145); Total Bilirubin 0.5 mg/dL (0.15-1.2); Total Iron Binding Capacity 289 mcg/dl; Total Protein 4.6 g/dL (6.6-8.7); Unsaturated Iron Binding 272 ug/dL (112-347)
== END 2021-09-24 14:01 | disposition home or self-care (01) ==
PROVIDERS: PCP Nurse Practitioner Family; Visit Provider Internal Medicine Medical Oncology
DX: C50.812 Malignant neoplasm of overlapping sites of left female breast (principal); C50.811 Malignant neoplasm of overlapping sites of right female breast; Z17.0 Estrogen receptor positive status [ER+]; D70.1 Agranulocytosis secondary to cancer chemotherapy; T45.1X5A Adverse effect of antineoplastic and immunosuppressive drugs, initial encounter; D69.59 Other secondary thrombocytopenia; D50.9 Iron deficiency anemia, unspecified; Z79.899 Other long term (current) drug therapy
CPT/HCPCS: 36591; 80053; 83540; 83550; 83735; 85025; 86300

== ENCOUNTER 2021-09-26 06:32 | Outpatient (CLI) | payer MEDICARE, OTHER, SELFPAY ==
[2021-09-26] MEDS: sodium chloride 0.9% 100 mL Bag IV (09:15)
[2021-09-26] MEDS: ferric carboxy (PYXIS) 750 mg/15 mL INJ IV (09:20)
--- NOTE | 2021-09-29 09:20 | ONC FU_ITS ---
Dr. Rascon Patient Follow-Up Note Patient: Bee Zheng Unit #: [id number]: 1950 Dicatated By: Tab Rascon M.D.Date of Visit:Sep 26, 2021 Onc Med Follow-up/Prog Note Chief Complaint: Bilateral breast cancer. History of Present Illness: This is a 71 year-old woman with bilateral invasive breast cancer, both locally advanced. The right breast was grade 1 infiltrating ductal carcinoma, post treatment stage IIA (ypT1c, ypN2a, M0), ER/OH positive and HER-2/bernadine negative. The left breast cancer was grade 3 infiltrating ductal carcinoma, post treatment stage at least IB (ypT2, ypN2a, M0), ER/OH positive and HER-2/bernadine positive. She had presented with gradually worsening swelling and firmness in her breasts after she had sustained a chest injury in a fall about 9 months ago. Bilateral mammograms on 03/23/2019 were BI-RADS 5, highly suggestive of malignancy. Findings included areas of dense asymmetry in the central right breast measuring 3.5 cm and in the central left breast measuring 4.5 by 3.9 cm. The right breast ultrasound showed an irregular hypoechoic mass at 12:00, middle depth, measuring 3.5 x 2.2 cm. Also noted was eccentric thickening of a lymph node in the right axilla. The left breast ultrasound showed a large amount of shadowing within the central breast mass containing calcifications at 12:00, measuring 4.6 x 3.7 cm. There were small benign-appearing lymph nodes on the left. She underwent bilateral ultrasound-guided biopsies on 04/06/2019. The left breast showed grade 3 infiltrating ductal carcinoma with a minor DCIS component. The breast prognostic profile showed ER positive at 87% and OH positive at 72%. There was overexpression of HER-2/bernadine, 3+ by IHC and amplification ratio by FISH of 2.3 with 7.0 HER-2 copies/cell. The Ki-67 was unfavorable at 22%. The right breast showed grade 2 infiltrating ductal carcinoma. A subsequent prognostic profile on the right breast biopsy showed ER positive at 87% and OH positive at 21%. That tumor was negative for overexpression of HER-2/bernadine, 1+ by IHC and amplification ratio by FISH of 1.0 with 2.4 HER-2 copies/cell. Staging PET/CT on 05/07/2019 showed FDG avid right breast lesion measuring 2.1 cm, SUV 13.7, and a solitary hypermetabolic right axillary lymph node with SUV 5.3, consistent with local metastatic disease. Other right axillary lymph nodes were too small to characterize by PET. The left breast showed 2 nearly contiguous lesions, the more dominant measuring 2.5 x 3.8 cm with SUV 8.3. The more inferior and lateral lesion measured 1.3 x 1.5 cm with SUV 11.7. Left axillary lymph nodes were too small to characterize by PET. There were no areas of uptake to suggest any other metastatic disease. A needle biopsy of the right axillary lymph node on 05/19/2019 showed metastatic carcinoma most consistent with breast primary. Given those findings and with HER-2/bernadine positive disease in the left breast, she was recommended to undergo neoadjuvant chemotherapy with TCH-P. On 06/02/2019 she began cycle 1 of neoadjuvant chemotherapy with TCH-P. She tolerated the treatment without acute toxicity. She subsequently developed pretty severe diarrhea, beginning around a 3 or 4. It lasted for 2 weeks. She continued with cycle 2 on 06/28/2019. That treatment was complicated by a pretty severe skin eruption, and she continued to have diarrhea. With cycle 3 on 07/26/2019 I did opt to omit the docetaxel. With had cycle there was no recurrence of skin eruption, but she continued to have severe diarrhea. With cycle 4, on 08/23/2019, I opted to admit the Perjeta and replace the taxane portion of her chemotherapy with Abraxane. On 08/29/2019 she was admitted to the hospital with severe pancytopenia. She continued to have diarrhea and she also developed significant liver dysfunction. She required transfusion of PRBC and platelets. She had uneventful recovery of her white blood cell count, but she continued to have severe thrombocytopenia at discharge, requiring additional outpatient platelet pheresis. I had seen her for a follow-up visit on 09/20/2019. Given the multiple toxicities she had experienced, I opted not to attempt any further chemotherapy. A restaging PET/CT on 09/24/2019 showed primary right breast carcinoma measuring 1.6 cm with SUV 4.6, significantly improved from the prior study. The solitary right axillary lymph node had resolved. The nearly contiguous left breast lesions were reported to have SUV of 3.1, also representing a significant response to therapy. At her follow-up visit on 10/25/2019 she still had very limited activity, and she also continued to have significant lower extremity edema. At that point her treatment remained on hold. Her medical history is otherwise significant in that she had presented in 2014 anemia, severe enough to require transfusion. This was ultimately determined to be due to endometrial cancer, for which she underwent hysterectomy/bilateral salpingo-oophorectomy. Those records are not available at this time. She indicates that there was no lymph node involvement. She apparently did receive postoperative radiation with HDR implant. There has been no evidence of recurrence of the endometrial cancer. At her follow-up visit on 11/01/2019 she had recovered sufficiently to resume treatment with single agent Herceptin at a 3-week dosing schedule. She tolerated it without significant toxicity. On 11/17/2019 she underwent bilateral modified radical mastectomies. Pathology on the left breast showed grade 2 invasive ductal carcinoma, multifocal, with the largest focus measuring 2.8 cm in maximum diameter. There was invasion into the dermis, but without skin ulceration. There was a small component of nuclear grade 1 ductal carcinoma in situ. The margins were negative. There was involvement in 6 of 8 axillary lymph nodes with the largest metastatic deposit measuring 6 mm. Pathologic staging was ypT2, ypN2a. The right breast showed grade 1 invasive ductal carcinoma measuring 1.3 cm in maximum diameter. There was an extensive component of nuclear grade 2 intraductal cancer, estimated at 13 mm. The margins were uninvolved. There was involvement in 8 of 8 axillary lymph nodes with the largest metastatic deposit measuring 5 mm. Pathologic staging was ypT1c, ypN2a. She had no complications with the surgery. She was able to continue single agent Herceptin at the 3- week dosing schedue. As of 12/13/2019 she had received her 3rd cycle. During that time she did show gradual improvement in her neuropathy and performance status. As of her visit on 01/03/2020 I opted to change her systemic therapy to Kadcyla at 3.6 mg/kg by IV infusion. At that time, she also began adjuvant hormonal therapy with anastrozole 1 mg daily. She tolerated the initial infusion of Kadcyla with no adverse effects. She continued with cycle 2 on 01/24/2020, and she began chest wall radiation on 01/25/2020. Her 3rd cycle of Kadcyla was delayed due to neutropenia. She went on to complete radiation on 03/06/2020, 5040 cGy to each chest wall. She had then presented with increased shortness of breath. Her CT pulmonary angiogram on 04/09/2020 showed no evidence for pulmonary embolus. She was small right pleural and pericardial effusions, which were new. The most significant finding was fibrotic appearing airspace infiltrates in the mid and upper lungs anteriorly, also new. The findings were felt to be most consistent with radiation pneumonitis. She began on steroid therapy. As of her follow-up visit on 05/01/2020, she was showing clinical improvement, and her prednisone dosage was decreased to 10 mg daily. Her restaging CT scans on 05/31/2020 showed moderate chronic emphysematous changes, with no acute pulmonary infiltrates. 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 There was also mild but stable dilatation of the main pulmonary arteries. There was no evidence of metastatic disease in the chest, abdomen, or pelvis. With those findings, she continued adjuvant hormonal therapy with anastrozole. I did not attempt to restart Kadcyla or Herceptin. During follow-up her prednisone dosage was gradually tapered. At her scheduled visit on 08/13/2020 she reported new onset of rectal bleeding. Colonoscopy by Dr. Pompa was unrevealing. As of her follow-up visit on 03/07/2021 she continued to have somewhat marginal performance status. She was still having some diarrhea and some neuropathy symptoms, but there was no evidence of recurrence of her breast cancer. She continued adjuvant hormonal therapy with anastrozole 1 mg daily. Her other medical illnesses include hypertension and hypothyroidism. She has a history of smoking 1-2 packs of cigarettes daily for 50 years. She quit smoking in 2014. She has alcohol use of at least a 6-pack of beer daily. INTERIM HISTORY: On 05/02/2021 she was admitted to the hospital with extensive bilateral pulmonary emboli. There was associated severe right heart strain, and she was treated with TPA followed by Lovenox. Her further clinical course was complicated by acute GI bleeding, for which she underwent placement of IVC filter. A repeat colonoscopy on 05/13/2021 showed a couple of tiny sessile polyps in the mid transverse colon. There is moderate diffuse inflammation involving the entire colon. Biopsy showed severe chronic active colitis with cryptitis and crypt abscesses. A splenic flexure polyp was noted to be an inflammatory polyp. On 05/16/2021 she was discharged home on anticoagulation with apixaban 5 mg twice daily. During subsequent follow-up with Dr. Duarte she was started on steroid therapy for the colitis with subsequent addition of mesalamine. At her follow-up visit on 07/09/2021 she had no obvious recurrence of breast cancer, which she was having more swelling and more shortness of breath. Her repeat echocardiogram on 08/02/2021 showed normal left ventricular systolic function with estimated ejection fraction 55 to 60%. There was grade 1 diastolic dysfunction. There was no pericardial effusion. In the absence of any evidence of recurrence of the breast cancer, she continued adjuvant hormonal therapy with anastrozole 1 mg daily. She is seen for a follow-up visit. She continues to have limited activity, but she is able to ambulate with a walker and she is able to do housework. ECOG score is 1. Recently her swelling has been getting worse and she has been more prone to falling. She says she just gets lightheaded and goes down. She has good appetite. She does not have fever, night sweats, or hot flashes. She has sinus drainage and a dry cough. She is short of breath with activity. She does not complain of chest pain. She occasionally has nausea. She continues to have diarrhea, and that did get worse with her oral iron supplement. She has not been aware of any improvement with the mesalamine and prednisone. She has no complaints. She has no significant joint or bone pain. She does not complain of headache. She has residual neuropathy in her hands and in her legs and feet. She is also having more difficulty with memory/cognitive function. Medications: Anastrozole 1 Tablet (of 1 mg) Oral daily, Apixaban 1 Tablet (of 5 mg) Oral b.i.d., Calcium + D3 1 Tablet Oral daily, Furosemide (40 mg) Tablet Oral Take as Directed, Imodium A-D 2 Tablet (of 2 mg) Oral b.i.d. PRN, Lasix 1 Tablet (of 40 mg) Oral every am, Levothyroxine Sodium 1 (112 mcg) Tablet Oral daily, Mesalamine (1.2 g) Tablet, enteric coated Oral daily, Potassium Chloride ER 1 Tablet (of 10 meq) Tablet, controlled release Oral daily, Prochlorperazine Maleate 1 Tablet (of 10 mg) Oral q 4 hours PRN Allergies: Levaquin Vital Signs: Performed on Sep 26, 2021 09:36 Height - 66.00 in Weight - 154.8 lbs (HIGH) BSA - 1.79 sq.m BMI - 24.99 Temperature - 97.2 F (LOW) Pulse - 112 /min (HIGH) Respiration - 18 /min BP - 102/71 mm(hg) O2 Sat - 95 % (LOW) Pain - 0 Fatigue - 5 Physical Examination: Constitutional - She appears somewhat weak generally, Eyes - Sclerae nonicteric. Conjunctivae clear, ENMT - No lesions noted in the oral cavity, Hematologic/Lymphatic - No cervical or clavicular adenopathy, Respiratory - Lungs sound clear, Cardiovascular - Heart rhythm is irregular. There is no murmur, gallop, or rub noted, Breasts - There are no chest wall lesions noted. There is no axillary adenopathy, Abdomen - Soft. Liver and spleen are not enlarged. There is no abdominal mass or ascites noted and there is no inguinal adenopathy, Extremities - There are mild venous stasis changes bilaterally. There is 2 to 3+ lower extremity edema, Integumentary - There is an abrasion over the right knee and there is a large area of ecchymosis on the right leg, Neurologic - She has weakness in both legs. There are no focal neurologic deficits noted. Lab/Imaging: Test performed on Sep 24, 2021 14:48 Iron 17 mcg/dL Magnesium 1.4 mg/dL Sodium 139 mmol/L Iron Binding Capacity (TIBC) 289 mcg/dl Potassium 3.2 mmol/L % Iron Saturation 5.8 % Chloride 102 mmol/L CO2 22 mmol/L UIBC 272 mcg/dL Anion Gap 18.2 BUN 27 mg/dL Creatinine 1.3 mg/dL Cr Clearance (Est) 43.5200 mL/min eGFR 40.6 mL/min Glucose 176 mg/dL Osmolality - Calculated 297 mOsm/kg Calcium 8.1 mg/dL Protein, Total 4.6 g/dL Albumin 2.9 g/dL Globulin 1.7 g/dL Bilirubin, Total 0.5 mg/dL ALT (SGPT) 14 U/L AST (SGOT) 13 U/L Alkaline Phosphatase 133 IU/L WBC 14.1 10 3/uL RBC 3.52 10 6/uL HGB 9.3 g/dL HCT 31.8 % MCV 90.3 fl MCH 26.4 pg MCHC 29.2 g/dL RDW 17.9 % Platelet Count 181 10 3/cmm MPV 10.9 fL Neutrophils 13.40 10 3/uL Lymphocytes 0.4 10 3/uL Monocytes 0.2 10 3/uL Eosinophils 0.0 10 3/uL Basophils 0.0 10 3/uL Neutrophil % 94.8 % Lymphocyte % 2.5 % Monocyte % 1.5 % Eosinophil % 0.0 % Basophils % 0.1 % NRBC % 0 % CA 15-3 30.6 U/mL Problem List: 1. Bilateral invasive breast cancer, both locally advanced. The right breast cancer was grade 1 infiltrating ductal carcinoma, post treatment stage IIA (ypT1c, ypN2a, M0), ER/OH positive and HER-2/bernadine negative. The left breast cancer was grade 3 infiltrating ductal carcinoma, post treatment stage at least IB (ypT2, ypN2a, M0), ER/OH positive and HER-2/bernadine positive. The chemotherapy was stopped after 4 cycles due to toxicity. She underwent modified radical mastectomy bilaterally on 11/17/2019. 3. She has residual chemotherapy related neuropathy. 4. She had persistent diarrhea following the chemotherapy, and she ultimately was diagnosed with ulcerative colitis. 5. She was hospitalized with extensive bilateral pulmonary emboli in April 2021. She remains on anticoagulation with apixaban. 6. She had acute GI bleed following treatment with TPA, requiring placement of inferior vena cava filter. 7. Hypertension. 8. Hypothyroidism. 9. She has a history of endometrial cancer for which she underwent hysterectomy/bilateral salpingo-oophorectomy and postoperative HDR implant radiation in 2014. Problems Addressed with this Encounter and Plan: 1. Patient with bilateral invasive breast cancer, both locally advanced. The right breast cancer was grade 1 infiltrating ductal carcinoma, post treatment stage IIA (ypT1c, ypN2a, M0), ER/OH positive and HER-2/bernadine negative. The left breast cancer was grade 3 infiltrating ductal carcinoma, post treatment stage at least IB (ypT2, ypN2a, M0), ER/OH positive and HER-2/bernadine positive. She underwent bilateral ultrasound directed breast biopsies on 04/06/2019, and she underwent ultrasound directed needle biopsy of a right axillary lymph node on 05/19/2019. Her subsequent breast cancer treatment included: 1. Neoadjuvant chemotherapy with TCH-P for 4 cycles 08/23/2019, stopped due to multiple toxicities, including peripheral neuropathy.. 2. Herceptin monotherapy beginning 11/01/2019. 3. Modified radical mastectomy bilaterally on 11/17/2019. 4. Adjuvant hormonal therapy with anastrozole 1 mg daily beginning 01/03/2020. 5. Kadcyla for 2 cycles, on 01/03/2020 and 01/24/2020, stopped due to toxicity. 6. Prophylactic chest wall radiation, completed on 03/06/2020 to 5040 cGy to each chest wall. During followup she has ar there has been no evidence of recurrence of the breast cancer. She continues adjuvant hormonal therapy with anastrozole 1 mg daily. Has ongoing problems with neuropathy in the lower extremities and persistent lower extremity edema. She has limited activity and recently she has been more prone to falling. As such, her overall condition remains poor, but she appears to be tolerating the anastrozole with no apparent side effects and thus far there has been no evidence of recurrence of the breast cancer. As such, she continues adjuvant hormonal therapy with anastrozole 1 mg daily. I will see her again in 1 month. 2. She has treatment related peripheral neuropathy with associated disability. She continues symptomatic management with gabapentin. 3. She has had ongoing problems with diarrhea following her chemotherapy, and at one point she also had some associated rectal bleeding. Her initial colonoscopy was unrevealing, but on repeat colonoscopy in April 2021 she was found to have evidence of ulcerative colitis. She began on treatment with prednisone and mesalamine but with no obvious symptomatic beneft. At this point she prefers to stop the mesalamine. With her swelling getting worse, I also will now have her taper off prednisone. 4. In April 2021 she was hospitalized with extensive bilateral pulmonary emboli. She had associated right heart strain, and she did receive TPA. She remains on anticoagulation with apixaban. Her repeat echocardiogram showed normal left ventricular function and just mild (grade 1) diastolic dysfunction. However, her NT-pro-B INSTALLMENT LOAN COLLECTOR level was significantly elevated at 3116 pg/mL, consistent with congestive heart failure. At this point she continues on diuretic therapy with furosemide, though management is somewhat problematic due to borderline renal function and to relatively low blood pressure. 5. She has iron deficiency anemia. She was not able to tolerate oral iron supplements due to GI side effects. As such, she will be given parenteral iron replacement with 2 infusions of Injectafer, subject to verification of insurance coverage. Signed By: Tab Rascon M.D. <<Signature on File>>
== END 2021-09-26 06:33 | disposition home or self-care (01) ==
LOC: ONCMED 06:36
PROVIDERS: PCP Nurse Practitioner Family; Visit Provider Internal Medicine Medical Oncology
DX: C50.811 Malignant neoplasm of overlapping sites of right female breast (principal); C50.812 Malignant neoplasm of overlapping sites of left female breast; Z17.0 Estrogen receptor positive status [ER+]; G62.0 Drug-induced polyneuropathy; K52.1 Toxic gastroenteritis and colitis; T45.1X5A Adverse effect of antineoplastic and immunosuppressive drugs, initial encounter; I26.99 Other pulmonary embolism without acute cor pulmonale; Z79.01 Long term (current) use of anticoagulants; D50.0 Iron deficiency anemia secondary to blood loss (chronic); Z79.899 Other long term (current) drug therapy; I10 Essential (primary) hypertension; E03.9 Hypothyroidism, unspecified; Z85.42 Personal history of malignant neoplasm of other parts of uterus; Z90.710 Acquired absence of both cervix and uterus; Z92.21 Personal history of antineoplastic chemotherapy; Z92.3 Personal history of irradiation; Z79.818 Long term (current) use of other agents affecting estrogen receptors and estrogen levels
CPT/HCPCS: 96365; 99214; J1439

== ENCOUNTER → 2021-10-02 15:16 | Outpatient (BNVA) | payer MEDICARE, OTHER, SELFPAY | PROVIDERS: PCP Nurse Practitioner Family; Visit Provider Internal Medicine Critical Care Medicine | DX: Z01.812 Encounter for preprocedural laboratory examination (principal); Z20.822 Contact with and (suspected) exposure to COVID-19 | CPT/HCPCS: 87635 ==

== ENCOUNTER 2021-10-03 06:37 | Outpatient (CLI) | payer MEDICARE, OTHER, SELFPAY ==
[2021-10-03] MEDS: ferric carboxy (IVPB) 750 MG in sodium chloride 0.9% (100 ml) 100 ML 460 MG IV (14:55)
== END 2021-10-03 06:38 | disposition home or self-care (01) ==
LOC: ONCMED 06:37
PROVIDERS: PCP Nurse Practitioner Family; Visit Provider Internal Medicine Medical Oncology
DX: D50.9 Iron deficiency anemia, unspecified (principal)
CPT/HCPCS: 96365; J1439

== ENCOUNTER 2021-10-08 07:02 | Outpatient (CLI) | payer MEDICARE, OTHER, SELFPAY ==
--- NOTE | 2021-10-08 12:50 | PFTS_ITS ---
Date of Study:10/08/21 Date of Dictation: 10/11/21 MECHANICS: Pre-bronchodilator forced vital capacity (FVC) is reduced. Pre-bronchodilator forced expiratory volume in one second (FEV1) is moderately reduced 58%. FEV1/FVC is reduced. There is no postbronchodilator study. FLOW VOLUME LOOP: Sloping of expiratory limb suggestive of airway obstruction LUNG VOLUMES: Not measured DIFFUSING CAPACITY FOR CARBON MONOXIDE: Moderately reduced 54% . INTERPRETATION: The prebronchodilator spirometry shows moderate obstruction. Gas transfer is moderately reduced. Lung volumes not measured. Correlate clinically. MTDD
== END 2021-10-08 07:03 | disposition home or self-care (01) ==
LOC: RT 07:03
PROVIDERS: PCP Nurse Practitioner Family; Visit Provider Internal Medicine Critical Care Medicine
DX: I27.20 Pulmonary hypertension, unspecified (principal)
CPT/HCPCS: 94010; 94729

== ENCOUNTER 2021-10-21 15:55 | Inpatient (IN) | payer MEDICARE, OTHER, SELFPAY ==
[2021-10-21] VITALS (7 sets, daily range): BP systolic 87–108; BP diastolic 56–79; PULSE 78–122; RESP 20; TEMP 36.7; O2SAT 94–99; BMI 24.8; BMI 26.9
--- NOTE | 2021-10-21 16:36 | XRR_ITS ---
PROCEDURE INFORMATION: Exam: XR Chest Exam date and time: 10/21/2021 4:36 PM Age: 71 years old Clinical indication: Shortness of breath; Prior surgery; Surgery date: 6+ months; Surgery type: Mastectomy; Patient HX: Uterine and breast cancer, swelling in bilateral legs with fluid blisters on feet with no history of injury, burn etc. ; Additional info: Dyspnea/cough TECHNIQUE: Imaging protocol: XR of the chest. Views: 1 view. COMPARISON: CR XR chest 2V* [id number] 08/19/2021 9:24 AM FINDINGS: Tubes, catheters and devices: Stable left [id number]. Lungs: Changes of emphysema with interstitial scarring in both lungs. Multiple calcified granulomas in both lungs. No consolidation. Pleural spaces: Unremarkable. No pleural effusion. No pneumothorax. Heart/Mediastinum: Stable dextrocardia with left aortic arch. Diaphragm: Stable chronic elevation of the left diaphragm. Bones/joints: Unremarkable. XR/XR chest 1V portable [id number] IMPRESSION: No acute finding.
--- NOTE | 2021-10-21 16:36 | USCV_ITS ---
Bee Zheng Age: 71 Gender: F : 1950 Exam Date: 10/21/2021 16:52 Ordering Phys: Torsten Bravo DO Technologist: Sara Carter Exam Location: [facility] [place]_ Indication: BLE SWELLING AND PAIN HISTORY: Lower extremity swelling. Lower extremity pain. PROCEDURES: Venous duplex imaging was performed in bilateral lower extremities. The following venous structures were evaluated: common femoral vein, profunda vein, proximal portion of the greater saphenous vein, superficial femoral vein, and the popliteal vein. In addition, the posterior tibial and peroneal trunk were evaluated. Serial compression, augmentation maneuvers, and spectral Doppler flow evaluation were performed. FINDINGS: No evidence of DVT seen in any vessel visualized at this time. Edema seen in Bilat legs CONCLUSIONS No evidence of right lower extremity DVT. No evidence of left lower extremity DVT. Subcutaneous edema Bilateral legs Adithya Stanley MD (Electronically Signed) Final Date: 21 October 2021 17:07 S
--- NOTE | 2021-10-21 17:12 | ED_ITS ---
Documented by User: Torsten Bravo DO 10/22/21 06:50 HPI - Extremity Problem General: Chief complaint: Extremity Injury, Lower Stated complaint: PITTING EDEMA Time Seen by Provider: 10/21/21 16:10 History of Present Illness: HPI Narrative: 71-year-old female presents emergency room with bilateral lower extremity edema. Patient had fluid blisters develop on dorsum of feet she put some socks on ruptured both of them. They hudson ve been there for some time she had difficult time ambulating. Patient has history of breast cancer and is currently being seen by oncology. She denies any difficulty breathing she denies any chest pain. MD Complaint: extremity pain Onset (ago): day(s) Pain Consistency: intermittent Location: left, right and lower extremity Quality: aching Radiation: none Relieving factors: elevation Exacerbating factors: weight bearing, walking and other (dependent positioning) Associated symptoms: Reports other; Deny arthralgias, chest pain, fever(s), myalgias, rash or short of breath Review of Systems Const: Denies: fever(s) ENMT: Denies: throat pain, ear or mastoid pain, nasal discharge or nasal congestion Card: Denies: chest pain Resp: Denies: dyspnea, productive cough or non-productive cough GI: Denies: abdominal pain, nausea, vomiting, hematemesis, coffee ground emesis, diarrhea, constipation, bloating, hematochezia or melena : Denies: flank pain, difficulty voiding, dysuria, urinary frequency or urinary urgency Skin/Breast: Denies: rash PFSH ED PFSH: Medical History Acute massive pulmonary embolism (05/02/21) Anemia Bilateral breast cancer 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 Is with Dr. Rascon. Right breast was grade 1 stage IIa (ypT1c, YPN2A, M0), ER/ MS positive and HER-2/nu negative. Left breast was grade 3 stage at least 1B (ypT2, YPN2A, M0), ER/MS positive and HER-2/bernadine positive. Chemotherapy stopped after 4 cycles due to toxicity. Had modified radical mastectomy bilaterally and underwent prophylactic chest wall radiation. Bilateral breast cancer Bloody stool Chest pressure Chronic diarrhea Drug-induced peripheral neuropathy Chemotherapy History of blood transfusion History of DVT (deep vein thrombosis) Left lower extremity, approximately 10 years ago, preceded first cancer diagnosis History of endometrial cancer Status post hysterectomy and bilateral salpingo-oophorectomy with postoperative HDR implant radiation in 2014 Hypotension Hypothyroidism Metabolic acidosis Obstructive cardiovascular shock Port-A-Cath in place Post-radiation pneumonitis Pulmonary embolism (05/02/21) Pulmonary hypertension Surgical History History of colonoscopy (~09/2020) History of hernia repair History of hysterectomy S/P insertion of IVC (inferior vena caval) filter Status post bilateral mastectomy Family History Mother Cancer Denies family history of Clotting disorder Social History Quit status (tobacco): has quit using tobacco Year quit tobacco: 2010 Former quit date comment: Hx of 1.5 PPD x 40 Years Second hand smoke exposure: No Smoking risk assessment/counseling performed?: No Alcohol intake: former Former alcohol use details: Previously drank beer regularly but none in about a year Counseling given: No Counseling given: No Lives independently: Yes Household members: none History of recent travel: No Current gender identity: Female Physical Exam Const: GENERAL APPEARANCE: cooperative and comfortable ORIENTATION/CONSCIOUSNESS: Yes awake, Yes oriented to person, Yes oriented to place and Yes oriented to time HENMT: COMMON NORMALS: normocephalic, atraumatic and hearing grossly normal bilaterally HEAD & SCALP: normocephalic and atraumatic Neck/C-Spine: COMMON NORMALS: no JVD Resp: COMMON NORMALS: normal respiratory effort, No retractions, No use of accessory muscles and clear to auscultation bilaterally AUSCULTATION: clear to auscultation bilaterally Cardio: COMMON NORMALS: no JVD, regular rate, regular rhythm and No murmurs present (Cardio) RATE: regular rate RHYTHM: regular rhythm GI: COMMON NORMALS: Soft to palpation and No hepatosplenomegaly present AUSCULTATION: Yes normoactive bowel sounds PALPATION: Yes Soft to palpation, No Tenderness to palpation present (GI), No Guarding due to palpation present (GI) and Yes No hepatosplenomegaly present Extremity: GENERAL: Yes edema (3+ bilateral lower extremities) Neuro: SENSORIUM/ORIENTATION: Yes oriented to person, Yes oriented to place and Yes oriented to time Skin: COMMON NORMALS: no rashes or lesions noted GENERAL SKIN EXAM: no rashes or lesions noted Course Vital Signs: Vital signs: Vital Signs Temperature 97.6 F 10/22/21 04:00 Pulse Rate 75 10/22/21 04:00 Respiratory Rate 16 10/22/21 04:00 Blood Pressure 82/50 10/22/21 04:00 Pulse Oximetry 96 10/22/21 04:00 MDM - Extremity (Nontraumatic) MDM Narrative: Medical decision making narrative: Care turned over Dr. Stack see his note for diagnosis disposition Lab Data: Labs: Lab Results 10/21/21 10/21/21 10/21/21 17:45 17:45 17:45 WBC 6.8 10^3/uL 10^3/ uL (4.0-10.0) RBC 3.31 10^6/uL L 10 ^6/uL (4.1-5.3) Hgb 9.9 g/dL L g/dL (11.5-15.3) Hct 32.8 % L % (37.0-47.0) MCV 99.1 fl H fl (81-99) MCH 29.9 pg pg (28.0-34.0) MCHC 30.2 g/dL g/dL (30.0-36.0) RDW 23.1 % H % (12.1-15.1) Plt Count 97 10^3/cmm L 10^ 3/cmm (130-400) MPV 11.0 fL H fL (7.4-10.4) Neut % (Auto) 90.7 % % Lymph % (Auto) 3.7 % % [place] % (Auto) 2.9 % % Eos % (Auto) 0.3 % % Baso % (Auto) 0.6 % % Neut # (Auto) 6.18 10^3/uL 10^3 /uL (1.8-7.7) Lymph # (Auto) 0.3 10^3/uL L 10^ 3/uL (0.8-4.8) [place] # (Auto) 0.2 10^3/uL 10^3/ uL (0.2-0.9) Eos # (Auto) 0.0 10^3/uL 10^3/ uL (0.0-0.8) Baso # (Auto) 0.0 10^3/uL 10^3/ uL (0.0-0.1) Nucleated RBC % (a uto) 0 % % Nucleated RBCs # 0.0 /100WBC /100W BC Sodium 132 mmol/L L mmol /L (136-145) Potassium 3.2 mmol/L L mmol /L (3.5-5.1) Chloride 96 mmol/L L mmol/ L (98-107) Carbon Dioxide 22 mmol/L mmol/L (22-29) Anion Gap 17.2 (5-19) BUN 30 mg/dL H mg/dL (8-23) Creatinine 1.4 mg/dL H mg/dL (0.5-0.9) GFR Calculation 37.3 mL/min L mL/ min (90-130) Glucose 109 mg/dL mg/dL (65-115) Calculated Osmolal ity 281 mOsm/kg L mOs m/kg (285-295) Calcium 7.3 mg/dL L mg/dL (8.5-10.5) Total Bilirubin 1.0 mg/dL mg/dL (0.15-1.2) AST 9 U/L U/L (0-32) ALT 9 U/L U/L (0-33) Alkaline Phosphata se 176 IU/L H IU/L (35-105) NT-Pro-B Natriuret Pep 5547 pg/mL H pg/m L (0-125) Total Protein 4.7 g/dL L g/dL (6.6-8.7) Albumin 1.9 g/dL L g/dL (3.5-5.2) Globulin 2.8 g/dL g/dL (1.3-4.6) Urine Color Urine Appearance Urine pH Ur Specific Gravit y Urine Protein Urine Glucose (UA) Urine Ketones Urine Blood Urine Nitrate Urine Bilirubin Urine Urobilinogen Ur Leukocyte Paulina ase Urine RBC Urine WBC Ur Squamous Epith Cells Amorphous Sediment Urine Bacteria 10/21/21 18:33 WBC RBC Hgb Hct MCV MCH MCHC RDW Plt Count MPV Neut % (Auto) Lymph % (Auto) [place] % (Auto) Eos % (Auto) Baso % (Auto) Neut # (Auto) Lymph # (Auto) [place] # (Auto) Eos # (Auto) Baso # (Auto) Nucleated RBC % (a uto) Nucleated RBCs # Sodium Potassium Chloride Carbon Dioxide Anion Gap BUN Creatinine GFR Calculation Glucose Calculated Osmolal ity Calcium Total Bilirubin AST ALT Alkaline Phosphata se NT-Pro-B Natriuret Pep Total Protein Albumin Globulin Urine Color Yellow (Yellow) Urine Appearance Sl hazy (CLEAR) Urine pH 5 (5-7) Ur Specific Gravit y 1.020 (1.005-1.030) Urine Protein Neg (Negative) Urine Glucose (UA) Norm (Normal) Urine Ketones Negative (Negative) Urine Blood Neg (Negative) Urine Nitrate Negative (Negative) Urine Bilirubin 1+ H (Negative) Urine Urobilinogen 1 mg/dL H mg/dL (Negative) Ur Leukocyte Paulina ase 2+ H (Negative) Urine RBC None /hpf /hpf (0-2) Urine WBC 15-25 /hpf H /hpf (0-5) Ur Squamous Epith Cells 5-10 /hpf H /hpf (0-5) Amorphous Sediment Not Reportable Urine Bacteria 2+ /hpf H /hpf (NONE) Discharge Plan Discharge Patient Disposition: Admitted As Inpatient Admit Provider: Shanti Tsang Clinical Impression: Lower extremity edema, Weakness Condition: Stable Coding Level of Care Code ED Social And Human Services Assistant for Chg Fwd Exam Comprehensive Documented by User: Jayme Stack MD 10/21/21 21:01 HPI - Extremity Problem General: Chief complaint: Extremity Injury, Lower Stated complaint: PITTING EDEMA Time Seen by Provider: 10/21/21 16:10 PFS ED PFSH: Medical History Acute massive pulmonary embolism (05/02/21) Anemia Bilateral breast cancer 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 Is with Dr. Rascon. Right breast was grade 1 stage IIa (ypT1c, YPN2A, M0), ER/MS positive and HER-2/nu negative. Left breast was grade 3 stage at least 1B (ypT2, YPN2A, M0), ER/MS positive and HER-2/bernadine positive. Chemotherapy stopped after 4 cycles due to toxicity. Had modified radical mastectomy bilaterally and underwent prophylactic chest wall radiation. Bilateral breast cancer Bloody stool Chest pressure Chronic diarrhea Drug-induced peripheral neuropathy Chemotherapy History of blood transfusion History of DVT (deep vein thrombosis) Left lower extremity, approximately 10 years ago, preceded first cancer diagnosis History of endometrial cancer Status post hysterectomy and bilateral salpingo-oophorectomy with postoperative HDR implant radiation in 2014 Hypotension Hypothyroidism Metabolic acidosis Obstructive cardiovascular shock Port-A-Cath in place Post-radiation pneumonitis Pulmonary embolism (05/02/21) Pulmonary hypertension Surgical History History of colonoscopy (~09/2020) History of hernia repair History of hysterectomy S/P insertion of IVC (inferior vena caval) filter Status post bilateral mastectomy Family History Mother Cancer Denies family history of Clotting disorder Social History Quit status (tobacco): has quit using tobacco Year quit tobacco: 2010 Former quit date comment: Hx of 1.5 PPD x 40 Years Second hand smoke exposure: No Smoking risk assessment/counseling performed?: No Alcohol intake: former Former alcohol use details: Previously drank beer regularly but none in about a year Counseling given: No Counseling given: No Lives independently: Yes Household members: none History of recent travel: No Current gender identity: Female Course Vital Signs: Vital signs: Vital Signs Temperature 97.6 F 10/22/21 04:00 Pulse Rate 75 10/22/21 04:00 Respiratory Rate 16 10/22/21 04:00 Blood Pressure 82/50 10/22/21 04:00 Pulse Oximetry 96 10/22/21 04:00 MDM - Extremity (Nontraumatic) MDM Narrative: Medical decision making narrative: Patient presents here with lower extremity edema severe in nature no signs of a cellulitis no DVT patient's not able to walk take care of herself spoke to hospitalist will admit at this time she has no one at home is able to take care of her either. Patient given IV Lasix here. Lab Data: Labs: Lab Results 10/21/21 10/21/21 10/21/21 17:45 17:45 17:45 WBC 6.8 10^3/uL 10^3/ uL (4.0-10.0) RBC 3.31 10^6/uL L 10 ^6/uL (4.1-5.3) Hgb 9.9 g/dL L g/dL (11.5-15.3) Hct 32.8 % L % (37.0-47.0) MCV 99.1 fl H fl (81-99) MCH 29.9 pg pg (28.0-34.0) MCHC 30.2 g/dL g/dL (30.0-36.0) RDW 23.1 % H % (12.1-15.1) Plt Count 97 10^3/cmm L 10^ 3/cmm (130-400) MPV 11.0 fL H fL (7.4-10.4) Neut % (Auto) 90.7 % % Lymph % (Auto) 3.7 % % [place] % (Auto) 2.9 % % Eos % (Auto) 0.3 % % Baso % (Auto) 0.6 % % Neut # (Auto) 6.18 10^3/uL 10^3 /uL (1.8-7.7) Lymph # (Auto) 0.3 10^3/uL L 10^ 3/uL (0.8-4.8) [place] # (Auto) 0.2 10^3/uL 10^3/ uL (0.2-0.9) Eos # (Auto) 0.0 10^3/uL 10^3/ uL (0.0-0.8) Baso # (Auto) 0.0 10^3/uL 10^3/ uL (0.0-0.1) Nucleated RBC % (a uto) 0 % % Nucleated RBCs # 0.0 /100WBC /100W BC Sodium 132 mmol/L L mmol /L (136-145) Potassium 3.2 mmol/L L mmol /L (3.5-5.1) Chloride 96 mmol/L L mmol/ L (98-107) Carbon Dioxide 22 mmol/L mmol/L (22-29) Anion Gap 17.2 (5-19) BUN 30 mg/dL H mg/dL (8-23) Creatinine 1.4 mg/dL H mg/dL (0.5-0.9) GFR Calculation 37.3 mL/min L mL/ min (90-130) Glucose 109 mg/dL mg/dL (65-115) Calculated Osmolal ity 281 mOsm/kg L mOs m/kg (285-295) Calcium 7.3 mg/dL L mg/dL (8.5-10.5) Total Bilirubin 1.0 mg/dL mg/dL (0.15-1.2) AST 9 U/L U/L (0-32) ALT 9 U/L U/L (0-33) Alkaline Phosphata se 176 IU/L H IU/L (35-105) NT-Pro-B Natriuret Pep 5547 pg/mL H pg/m L (0-125) Total Protein 4.7 g/dL L g/dL (6.6-8.7) Albumin 1.9 g/dL L g/dL (3.5-5.2) Globulin 2.8 g/dL g/dL (1.3-4.6) Urine Color Urine Appearance Urine pH Ur Specific Gravit y Urine Protein Urine Glucose (UA) Urine Ketones Urine Blood Urine Nitrate Urine Bilirubin Urine Urobilinogen Ur Leukocyte Paulina ase Urine RBC Urine WBC Ur Squamous Epith Cells Amorphous Sediment Urine Bacteria 10/21/21 18:33 WBC RBC Hgb Hct MCV MCH MCHC RDW Plt Count MPV Neut % (Auto) Lymph % (Auto) [place] % (Auto) Eos % (Auto) Baso % (Auto) Neut # (Auto) Lymph # (Auto) [place] # (Auto) Eos # (Auto) Baso # (Auto) Nucleated RBC % (a uto) Nucleated RBCs # Sodium Potassium Chloride Carbon Dioxide Anion Gap BUN Creatinine GFR Calculation Glucose Calculated Osmolal ity Calcium Total Bilirubin AST ALT Alkaline Phosphata se NT-Pro-B Natriuret Pep Total Protein Albumin Globulin Urine Color Yellow (Yellow) Urine Appearance Sl hazy (CLEAR) Urine pH 5 (5-7) Ur Specific Gravit y 1.020 (1.005-1.030) Urine Protein Neg (Negative) Urine Glucose (UA) Norm (Normal) Urine Ketones Negative (Negative) Urine Blood Neg (Negative) Urine Nitrate Negative (Negative) Urine Bilirubin 1+ H (Negative) Urine Urobilinogen 1 mg/dL H mg/dL (Negative) Ur Leukocyte Paulina ase 2+ H (Negative) Urine RBC None /hpf /hpf (0-2) Urine WBC 15-25 /hpf H /hpf (0-5) Ur Squamous Epith Cells 5-10 /hpf H /hpf (0-5) Amorphous Sediment Not Reportable Urine Bacteria 2+ /hpf H /hpf (NONE) EKG Data^: EKG 1: Attestation: I personally reviewed and interpreted this EKG as follows: EKG interpretation date: 10/21/21 EKG interpretation time: 19:14 Interpretation: sinus tach hr [address] or t wave abnormalities qrs 115 qtc 413 Discharge Plan Discharge Patient Disposition: Admitted As Inpatient Admit Provider: Shanti Tsang Clinical Impression: Lower extremity edema, Weakness Condition: Stable Coding Level of Care Code ED Social And Human Services Assistant for Chg Fwd Exam Comprehensive
--- NOTE | 2021-10-21 17:32 | ECG_ITS ---
[facility] Test Date: 2021-10-21 Pat Name: Bee Zheng Department: Room: Gender: Female Chief Operations Officer: : 1950 Requested By: Torsten Lockhart Order Number: [id number] Roxanne MD: Oralia Berumen M.D. Measurements Intervals [place] Rate: 103 P: 43 [place]: 123 QRS: 151 QRSD: 115 T: 3 QT: 353 QTc: 463 Interpretive Statements SINUS TACHYCARDIA POSSIBLE RIGHT VENTRICULAR HYPERTROPHY [SOME/ALL OF: PROMINENT R IN V1, LATE TRANSITION, RAD, YVETTE, SSS] Compared to ECG 05/12/2021 01:48:21 Sinus rhythm no longer present Left posterior fascicular block no longer present Electronically Signed On 10-21-2021 22:19:18 GRINDING MACHINE TENDER by Oralia Berumen M.D. [id number]
[2021-10-21 18:00] LABS: Basophils % 0.6 %; Eosinophils % 0.3 %; Hematocrit 32.8 % (37.0-47.0); Hemoglobin 9.9 g/dL (11.5-15.3); Lymphocytes # 0.3 10^3/uL (0.8-4.8); Lymphocytes % 3.7 %; Mean Corpuscular HGB Conc 30.2 g/dL (30.0-36.0); Mean Corpuscular Hemoglobin 29.9 pg (28.0-34.0); Mean Corpuscular Volume 99.1 fl (81-99); Monocytes # 0.2 10^3/uL (0.2-0.9); Monocytes % 2.9 %; Neutrophils # 6.18 10^3/uL (1.8-7.7); Neutrophils % 90.7 %; Nucleated Red Blood Cells % 0 %; Platelet Count 97 10^3/cmm (130-400); Red Blood Count 3.31 10^6/uL (4.1-5.3); Red Cell Distribution Width 23.1 % (12.1-15.1); White Blood Count 6.8 10^3/uL (4.0-10.0)
[2021-10-21 18:26] LABS: Alanine Aminotransferase 9 U/L (0-33); Albumin Level 1.9 g/dL (3.5-5.2); Alkaline Phosphatase 176 IU/L (35-105); Anion Gap 17.2 (5-19); Aspartate Amino Transferase 9 U/L (0-32); Blood Urea Nitrogen 30 mg/dL (8-23); Calcium 7.3 mg/dL (8.5-10.5); Carbon Dioxide 22 mmol/L (22-29); Chloride 96 mmol/L (98-107); Creatinine Clr Calc Pharmacy 38.0308; Globulin 2.8 g/dL (1.3-4.6); Glomerular Filtration Rate 37.3 mL/min (90-130); Glucose 109 mg/dL (65-115); Osmolality Calculated 281 mOsm/kg (285-295); Potassium 3.2 mmol/L (3.5-5.1); Sodium 132 mmol/L (136-145); Total Protein 4.7 g/dL (6.6-8.7)
[2021-10-21 19:06] LABS: Urine Appearance SL Hazy (CLEAR); Urine Color Yellow (Yellow)
[2021-10-21 19:07] LABS: Add Urine Culture? Yes; Add Urine Microscopic? YES; Bacteria Urine 2+ /hpf; Bilirubin Urine 1+ (Negative); Blood Urine Neg (Negative); Glucose Urine UA Norm (Normal); Ketones Urine Negative (Negative); Leukocyte Esterase Urine 2+ (Negative); Nitrate Urine Negative (Negative); Protein Urine Neg (Negative); Urobilinogen Urine 1 mg/dL (Negative); WBC Urine 15-25 /hpf (0-5); pH Urine 5 (5-7)
[2021-10-21 19:27] LABS: NT Pro B Type Natriuretic Pept 5547 pg/mL (0-125)
[2021-10-21] MEDS: FUROsemide 10 mg/mL SDV 10mL 60 MG IVP (21:09)
--- NOTE | 2021-10-21 22:40 | PC.NURSE ---
pt originally refusing indwelling pacheco catheter placement. After lasix adm, pt requesting pacheco catheter. vo obtained from Dr Stack. Pt tolerated procedure well. Pt cleaned from stool and urine incontinence
[2021-10-22] VITALS (9 sets, daily range): BP systolic 74–105; BP diastolic 45–58; PULSE 75–108; RESP 16–21; TEMP 36.4–36.9; O2SAT 92–98
[2021-10-22] MEDS: FUROsemide 10 mg/mL SDV 4mL 40 MG IVP ×2 (06:00→12:39)
[2021-10-22] MEDS: acetaminophen 325 mg Tablet 650 MG PO (06:06)
--- NOTE | 2021-10-22 08:18 | P.HP_ITS ---
Providers/Chief Complaint Admitting Physician: Shanti Tsang MD Primary Care Provider: FABY Howard Chief Complaint: PITTING EDEMA History of Present Illness Bee Zheng is a 71 year old female with breast cancer, currently on anastrozole, history of massive pulmonary embolism requiring TPA April 2021 subsequent placement of an IVC filter which has been removed in August 2021, on Xarelto 20 mg daily at this time. Prior evidence of RV strain noted at the time which is since resolved on a subsequent echo. Follows as an outpatient with pulmonary service due to persistent dyspnea and lower extremity edema. Has undergone right and left heart catheterization in August 2021 which was without any evidence of significant coronary artery disease. Right heart cath showed mean pulmonary pressure of 46. Her Lasix dose was recently increased to 40 mg p.o. twice daily. She has additionally recently been diagnosed with ulcerative colitis and started on 20 mg of p.o. prednisone daily with development of mata facies as documented on outpatient follow-ups. Sildenafil 20 mg 3 times a day was added for pulmonary hypertension. She uses supplemental oxygen at home usually 2 L/min. Her recent PFT as outpatient showed moderate obstructive defect. Presented to the emergency room overnight due to worsening lower extremity edema, now additionally with development of skin blisters over the dorsum of her feet after she tried to place some socks. Her superficial ulcerations are currently painful, and she is having a difficult time ambulating. Lower extremity Duplay was negative for any venous thromboembolism. B/L dorsalis pedis pulses are currently palpable Review of Systems General: Reports: 10 or more systems reviewed and unremarkable except in HPI and below Const: Denies: fever(s), chills or body aches Eyes: Denies: change in vision, blurry vision or photophobia ENMT: Reports: hoarseness; Denies: throat pain, enlarged tonsils, odynophagia or nasal congestion Card: Denies: chest pain, palpitations, irregular heart rhythm, edema, swelling of feet/ankles, lightheadedness, pre-syncope, dyspnea on exertion or orthopnea Resp: Denies: dyspnea, productive cough, non-productive cough, wheezing, stridor, pain on inspiration, change in phlegm color, hemoptysis or chest congestion GI: Denies: abdominal pain, nausea, vomiting, hematemesis, coffee ground emesis, dysphagia, heartburn, diarrhea, constipation, GI cramping, change in stool character, hematochezia or melena : Denies: flank pain, difficulty voiding, dysuria, urinary frequency, uri nary urgency, urinary hesitancy or hematuria Musc: Denies: neck pain, back pain, extremity pain, joint swelling, joint warmth or deformity Neuro: Denies: headache(s), numbness in extremities, weakness in extremities, sensory changes, difficulty walking, frequent falls, dizziness, vertigo, behavioral changes, Slurred speech present or seizure-like activity Psych: Denies: anxiety, depression, suicidal ideation or homicidal ideation Endo: Denies: polyuria, polydipsia, tired all the time, cold intolerance or hot flashes Joel/Lymph: Denies: easy bruising or easy bleeding Medications/Allergies Home Medications Medication Instructions Recorded Confirmed Last Taken Type gabapentin 300 mg PO BID 11/16/19 10/01/21 08/26/21 17:00 History anastrozole 1 mg PO DAILY 09/25/20 10/01/21 08/26/21 09:00 History levothyroxine [Euthyrox] 125 mcg PO DAILY 05/01/21 10/01/21 08/26/21 09:00 History mesalamine 1.2 gram tablet,delayed 3.6 g PO DAILY 56 Days #90 tab 06/18/21 10/01/21 08/26/21 09:00 Rx release furosemide 40 mg tablet 40 mg PO DAILY 08/08/21 10/01/21 08/26/21 09:00 History potassium chloride 10 mEq 20 meq PO BID 08/08/21 10/01/21 08/26/21 17:00 History tablet,extended release acetaminophen 650 mg PO Q6H PRN 08/26/21 10/01/21 Unknown History pantoprazole 40 mg tablet,delayed 40 mg PO BID #60 tab 09/02/21 10/01/21 Unknown Rx release sildenafil (pulm.hypertension) 20 20 mg PO TID 30 Days #90 tab 09/11/21 10/01/21 Unknown Rx mg tablet metoprolol succinate 25 mg 12.5 mg PO DAILY #45 tab 10/01/21 10/01/21 Unknown Rx tablet,extended release 24 hr prednisone 20 mg tablet 20 mg PO DAILY tab 10/01/21 10/01/21 Unknown History rivaroxaban 20 mg tablet 20 mg PO DAILY #90 tab 10/21/21 Unknown Rx Allergies Allergy/AdvReac Type Severity Reaction Status Date / Time No Known Allergies Allergy Verified 10/21/21 16:04 PFSH Acute PFSH: Medical History Acute massive pulmonary embolism (05/02/21) Anemia Bilateral breast cancer 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 Is [facility] Dr. Rascon. Right breast was grade 1 stage IIa (ypT1c, YPN2A, M0), ER/W[place] positive and HER-2/nu negative. Left breast was grade 3 stage at least 1B (ypT2, YPN2A, M0), ER/W[place] positive and HER-2/bernadine positive. Chemotherapy stopped after 4 cycles due to toxicity. Had modified radical mastectomy bila terally and underwent prophylactic chest wall radiation. Bilateral breast cancer Bloody stool Chest pressure Chronic diarrhea Drug-induced peripheral neuropathy Chemotherapy History of blood transfusion History of DVT (deep vein thrombosis) Left lower extremity, approximately 10 years ago, preceded first cancer diagnosis History of endometrial cancer Status post hysterectomy and bilateral salpingo-oophorectomy with postoperative HDR implant radiation in 2014 Hypotension Hypothyroidism Metabolic acidosis Obstructive cardiovascular shock Port-A-Cath in place Post-radiation pneumonitis Pulmonary embolism (05/02/21) Pulmonary hypertension Surgical History History of colonoscopy (~09/2020) History of hernia repair History of hysterectomy S/P insertion of IVC (inferior vena caval) filter Status post bilateral mastectomy Family History Mother Cancer Denies family history of Clotting disorder Social History Quit status (tobacco): has quit using tobacco Year quit tobacco: 2010 Former quit date comment: Hx of 1.5 PPD x 40 Years Second hand smoke exposure: No Smoking risk assessment/counseling performed?: No Alcohol intake: former Former alcohol use details: Previously drank beer regularly but none in about a year Counseling given: No Counseling given: No Lives independently: Yes Household members: none History of recent travel: No Current gender identity: Female Vitals/I&O/Wt Last Vital Signs Temp 97.8 F 12/28/21 07:56 Pulse 108 H 10/22/21 07:56 Resp 16 10/22/21 07:56 BP 74/48 10/22/21 07:56 Pulse Ox 92 10/22/21 07:56 10/21/21 10/22/21 10/22/21 22:59 06:59 14:59 Output Total 950 / 950 Balance -950 / -950 Weight last 48 hrs Weight 75.778 kg Weight 69.853 kg Physical Exam Narrative: EXAM NARRATIVE: General: No acute distress, AO x3 HEENT: PERRLA, pupils bilaterally equal and reactive, pallors not present Chest: Normal vesicular breath sounds, no added sounds, equal good air entry bilaterally CVS: S1-S2 regular, no murmurs, no tachycardia, no gallops, no rubs Abdomen: Soft, nontender, no organomegaly, bowel sounds present Neuro: No focal deficits, no facial deformity, AO x3, power 5/5 in all limbs Extremities: superficial ulceration involving the dorsum of feet, healthy s/c tissue at base, no gross signs of surrounding cellulitis Urinary Catheter Management^: Rothman: Cath Placed During This Visit: yes Urinary Catheter Date of Insertion: 10/21/21 Urinary Catheter Time of Insertion: 22:40 Data : 10/21/21 17:45 10/21/21 17:45 Micro: Microbiology 10/21/21 17:45 Blood Culture - Preliminary Blood SPECIMEN COLLECTED 10/21/21 17:40 Blood Culture - Preliminary Blood SPECIMEN COLLECTED Other data: Date of Service: 08/27/21 Procedure(s): PORTRAIT STUDIO PHOTOGRAPHER request for service Conclusions 1. Right heart cathPulmonary capillary wedge pressure 10 mmHg Right ventricle 52/2 mm Hg Pulmonary artery mean pressure 46 mmHg Right atrial pressure 6 mmHgNo reversibility was noted Cardiac output by Galen 3 L Cardiac index 2.0No significant stepup noted. 2. IVC filter retrieval through right internal jugular vein. After taking access with 6 [place] sheath, right heart cath was performed. Short 6 [place] sheath was then exchanged with a long IVC filter removal kit sheath. Snare was introduced through IVC filter retrieval sheath. IVC filter was gently then removed from the body. Patient tolerated procedure well without any complication. Long IVC filter retrieval sheath was removed out of the body and from right internal jugular. Hemostasis was achieved by holding manual pressure. Patient tolerated procedure well without any complication. Please see detailed in the main body of the note. 3. No disease noted in the Left Main, Left Anterior Descending, Right, or Circumflex coronary arteries. Date of Service: 08/02/21 Procedure(s): CV. echo wo/w contrast [id number] CONCLUSIONS 1. This is a technically difficult study inspite of using Optison was used prior per protocol. 2. Normal left ventricular cavity size and systolic function. Left ventricular ejection fraction is estimated at 55-60 %. No diagnostic regional wall motion abnormality. Abnormal septal motion. Grade I diastolic dysfunction (abnormal relaxation filling pattern), normal to mildly elevated filling pressures. 3. Probably normal right ventricle size and systolic function. 4. Possibly dilated pulmonary artery measured at 4 cm. 5. Direct comparison to previous study is not possible due to technically difficult study. A&P Assessment and plan (1) Lower extremity edema: Status: Acute (2) Pulmonary embolism: Status: Acute Qualifiers: Pulmonary embolism type: unspecified Chronicity: acute Acute cor pulmonale presence: unspecified Qualified Code(s): I26.99 - Other pulmonary embolism without acute cor pulmonale (3) Pulmonary hypertension: Status: Acute Additional A&P Information Patient with chronic lower extremity edema, history of PE, pulmonary hypertension presenting with worsening lower extremity swelling in spite of increased dose of Lasix at home recently. Bilateral lower extremity pitting edema noted. Additionally patient presented to ER due to development of skin blisters some of which have peeled off [place] exposed skin which is currently painful for the patient. Lower extremity Doppler performed in the ER negative for VTE. Dorsalis pedis is currently palpable bilaterally Admit to MedSurg and observation. Lasix 40 mg IV every 12 hours to help with lower extremity edema Recent echocardiogram August 2021 with normal systolic function, estimated EF 55 to 60%, grade 1 diastolic dysfunction normal to mildly elevated filling pressures. Status post left and right heart cath, results as above. Monitor urine output, kidney function, local wound care for superficial ulcerations. Attestations Medical Necessity Statement*: Anticipate less than 2 midnight stay for management of worsening lower extremity edema, resulted skin changes, no current signs of cellulitis Coding Level of Care Code Acute Horse Trekking Guide for [facility] Diagnoses Lower extremity edema R60.0 Pulmonary embolism I26.99 Pulmonary embolism type: unspecified Chronicity: acute Acute cor pulmonale presence: unspecified Pulmonary hypertension I27.20
--- NOTE | 2021-10-22 08:30 | PC.NURSE ---
Discussed with patient to have family member bring home medication list or all pill bottles up to the hospital so staff could update home medication list, patient verbalized understanding and called son to bring them.
[2021-10-22] MEDS: predniSONE 20 mg Tablet PO (08:39)
[2021-10-22] MEDS: gabapentin 300 mg Capsule PO ×2 (08:39→17:23)
[2021-10-22] MEDS: levothyroxine 125 mcg Tablet PO (08:39)
[2021-10-22] MEDS: pantoprazole DR 40 mg Tablet PO ×2 (08:39→17:23)
[2021-10-22] MEDS: metoprolol succinate ER (24 HR) 25 mg Tablet 12.5 MG PO (08:39)
[2021-10-22] MEDS: rivaroxaban 10 mg Tablet 20 MG PO (08:39)
[2021-10-22] MEDS: anastrozole 1 mg Tablet PO (09:16)
--- NOTE | 2021-10-22 11:39 | PC.NURSE ---
Pharmacy personnel in to see patient attempting to update home medication list, patients son brought in pills but they were not in bottles, no medication list, pharmacy attempting to call daughter to see if she has list or bottles.
--- NOTE | 2021-10-22 12:08 | PM.MISC ---
Miscellaneous Note Note: We will add albumin for third spacing Decrease dose of Lasix secondary to hyperkalemia Concern for pyoderma gangrenosum We will add topical bacitracin She is currently on steroids Patient was laying comfortably Was complaining of fatigue and lethargy Third spacing evident Multiple rash on her extremities [place] shaped wound on right dorsal foot with superficial skin sloughing no active signs of cellulitis, no active signs of necrotic tissue no signs of vascular compromise Foot is warm bilaterally Onychomycosis Soft abdomen bowel sound present Plan Decrease dose of Lasix to daily instead of twice a day Add albumin twice a day regimen Patient is refusing half-way or [facility], she wants to go home wants to participate with physical therapy during hospitalization Hypokalemia: Repleted Acute on chronic kidney disease secondary to low blood pressure and third spacing, anticipating provement with albumin and diuretic regimen No active flare of ulcerative colitis Abnormal UA however source seems contaminant No signs of DVT
[2021-10-22] MEDS: potassium chloride ER 20 mEq Tablet 40 MEQ PO (12:39)
[2021-10-22 12:53] LABS: Estmated Average Glucose 100; Hemoglobin A1C 5.1 % (4.0-6.0)
--- NOTE | 2021-10-22 12:54 | PC.PHAR ---
pt is trying to switch to a cheaper medication and filled xarelto to [facility]illy - pt is still taking eliquis as of 10/22/21. Per Dr. Mckeon, pt is to continue Prednisone 20mg once daily. added back to home med list per doctor orders.
[2021-10-22] MEDS: bacitracin ointment 28 gm 1 APPLIC TOPICAL ×2 (14:39→21:49)
[2021-10-22 17:02] LABS: Glucose Point of Care 128 mg/dL (70-110)
[2021-10-22 21:38] LABS: Glucose Point of Care 148 mg/dL (70-110)
[2021-10-23 04:00] VITALS: BP 90/55; PULSE 82; RESP 19; TEMP 36.6; O2SAT 94
[2021-10-23] MEDS: acetaminophen 325 mg Tablet 650 MG PO (06:06)
[2021-10-23 06:56] LABS: Glucose Point of Care 78 mg/dL (70-110)
[2021-10-23 06:56] LABS: Basophils % 0.2 %; Eosinophils % 0.2 %; Hematocrit 27.3 % (37.0-47.0); Hemoglobin 8.2 g/dL (11.5-15.3); Lymphocytes # 0.3 10^3/uL (0.8-4.8); Lymphocytes % 7.1 %; Mean Corpuscular Hemoglobin 29.7 pg (28.0-34.0); Mean Corpuscular Volume 98.9 fl (81-99); Mean Platelet Volume 11.6 fL (7.4-10.4); Monocytes # 0.3 10^3/uL (0.2-0.9); Monocytes % 5.8 %; Neutrophils # 3.97 10^3/uL (1.8-7.7); Nucleated Red Blood Cells % 0 %; Platelet Count 93 10^3/cmm (130-400); Red Blood Count 2.76 10^6/uL (4.1-5.3); Red Cell Distribution Width 22.5 % (12.1-15.1); White Blood Count 4.7 10^3/uL (4.0-10.0)
[2021-10-23 07:20] LABS: Alanine Aminotransferase 7 U/L (0-33); Albumin Level 2.1 g/dL (3.5-5.2); Alkaline Phosphatase 177 IU/L (35-105); Anion Gap 10.8 (5-19); Aspartate Amino Transferase 9 U/L (0-32); Blood Urea Nitrogen 22 mg/dL (8-23); Calcium 7.3 mg/dL (8.5-10.5); Carbon Dioxide 29 mmol/L (22-29); Chloride 100 mmol/L (98-107); Globulin 2.2 g/dL (1.3-4.6); Glomerular Filtration Rate 62.1 mL/min (90-130); Glucose 81 mg/dL (65-115); Osmolality Calculated 286 mOsm/kg (285-295); Sodium 137 mmol/L (136-145); Total Bilirubin 0.8 mg/dL (0.15-1.2); Total Protein 4.3 g/dL (6.6-8.7)
[2021-10-23 07:39] LABS: Potassium 2.8 mmol/L (3.5-5.1)
--- NOTE | 2021-10-23 07:42 | PC.NURSE ---
Critical results called by lab of potassium of 2.8 reported to physician.
[2021-10-23 08:00] VITALS: BP 89/57; PULSE 92; RESP 18; TEMP 36.6; O2SAT 96
[2021-10-23] MEDS: NON-FORMULARY MEDICATION (Sildenafil (Pulm.Hypertension) 20 mg tablet) 20 EACH PO ×3 (09:10→21:43)
[2021-10-23] MEDS: predniSONE 20 mg Tablet PO (09:10)
[2021-10-23] MEDS: anastrozole 1 mg Tablet PO (09:11)
[2021-10-23] MEDS: gabapentin 300 mg Capsule PO ×2 (09:12→17:52)
[2021-10-23] MEDS: pantoprazole DR 40 mg Tablet PO ×2 (09:12→17:52)
[2021-10-23] MEDS: rivaroxaban 10 mg Tablet 20 MG PO (09:12)
[2021-10-23] MEDS: levothyroxine 125 mcg Tablet PO (09:12)
--- NOTE | 2021-10-23 09:15 | USCV_ITS ---
Bee Zheng Age: 71 Gender: F : 1950 Exam Date: 10/23/2021 10:02 Ordering Phys: Etta Mckeon MD Technologist: CONSTANTIN Exam Location: [facility] – [place] Indication: SWELLING HISTORY: Upper extremity swelling. PROCEDURES: Venous duplex imaging was performed in only the left upper extremity. The following venous structures were evaluated: internal jugular vein, subclavian vein, axillary vein, and brachial veins. In addition, the basilic vein, cephalic vein, radial vein, and ulnar vein. FINDINGS: Normal 2-D, color Doppler and phasicity noted in the left upper extremity venous system extending from the left internal jugular vein through the main forearm. No thrombosis or occlusion noted. CONCLUSIONS No evidence of thrombus of the left upper extremity veins. Adithya Stanley MD (Electronically Signed) Final Date: 23 October 2021 11:44 S
[2021-10-23 11:28] LABS: Glucose Point of Care 107 mg/dL (70-110)
[2021-10-23 12:00] VITALS: BP 128/78; PULSE 86; RESP 18; TEMP 36.6
--- NOTE | 2021-10-23 12:08 | PM.PN ---
Subjective Subjective: Interval history: Swelling has improved with albumin, blood pressure low today as well, she will get albumin today Afebrile Hold Lasix today because of persistent hypotension, hypokalemia hypomagnesemia repleted Patient is agreeable to go to a senior care, PT to see her today Wound looks clean No DVT We will get left upper arm venous Doppler Vitals/I&O/Wt Last Vital Signs Temp 98 F 10/23/21 08:00 Pulse 92 10/23/21 08:00 Resp 18 10/23/21 08:00 BP 89/57 10/23/21 08:00 Pulse Ox 96 10/23/21 08:00 10/22/21 10/23/21 10/23/21 22:59 06:59 14:59 Intake Total 580 / 820 240 / 1060 Output Total 1200 / 1200 400 / 1600 150 / 150 Balance -620 / -380 -160 / -540 -150 / -150 Weight last 48 hrs Weight 75.778 kg Weight 69.853 kg Physical Exam Narrative: EXAM NARRATIVE: Patient is laying supine Complaining of fatigue and lethargy Agreeable to go to senior care Currently saturating well on 2 L, patient states that she at home takes 4 L Anasarca Third spacing Dorsum edema slightly improved Right foot dorsal surface wound seems to be showing good granulation tissue around the edges, base is clean no signs of infection EOMI, PERRLA nonfocal neuro exam Urinary Catheter Management^: Rothman: Cath Placed During This Visit: yes, but has since been removed by the nurse Reason for Continuing Indwelling Catheter: Decision to DC Catheter Urinary Catheter Date of Insertion: 10/21/21 Urinary Catheter Time of Insertion: 22:40 Date Urinary Catheter Removed: 10/23/21 Time Urinary Catheter Discontinued: 11:17 Data : 10/23/21 05:59 10/23/21 05:59 Micro: Microbiology 10/21/21 17:45 Blood Culture - Preliminary Blood NEGATIVE TO DATE 10/21/21 17:40 Blood Culture - Preliminary Blood NEGATIVE TO DATE 10/21/21 18:33 Urine Culture - Preliminary Urine,Clean Catch Gram Negative Rods A&P Assessment and plan (1) Lower extremity edema: Status: Acute (2) Weakness: Status: Acute (3) S/P insertion of IVC (inferior vena caval) filter: Status: Acute (4) Pulmonary embolism: Status: Acute Qualifiers: Pulmonary embolism type: unspecified Chronicity: acute Acute cor pulmonale presence: unspecified Qualified Code(s): I26.99 - Other pulmonary embolism without acute cor pulmonale (5) UC (ulcerative colitis): Status: Acute (6) Hypokalemia: Status: Acute (7) Hypomagnesemia: Status: Acute Additional A&P Information Third spacing causing anasarca Lower extremity edema Slight improvement with albumin Hold Lasix today Right foot wound: No active signs of prodromal gangrene or infection, clean base, with good signs of healing tissue, high deform gel. Compression wraps Hypokalemia, hypomagnesemia: Repleted No signs of DVT of legs We will get left upper arm venous Doppler to rule out DVT We will request arterial Doppler of extremities EF 55 to 60% with diastolic dysfunction clean vessels as per recent left heart cath, right heart cath consistent with pulmonary hypertension mean arterial pressure 46 mmHg Ulcerative colitis no recent flare, recently her steroids were tapered off Discontinue her steroids which I started for concern of pyoderma gangrenosum, she does not have typical features Full code Placement to a senior care PT evaluation Dietary optimization Continue Eliquis which she takes for PE Attestations Medical Necessity Statement*: Awaiting placement Time Spent in Patient Care: 16 - 35 minutes Coding Level of Care Code Acute Parks And Recreation Manager for Chg Fwd Diagnoses Lower extremity edema R60.0 Weakness R53.1 S/P insertion of IVC (inferior vena caval) filter Z95.828 Pulmonary embolism I26.99 Pulmonary embolism type: unspecified Chronicity: acute Acute cor pulmonale presence: unspecified UC (ulcerative colitis) K51.90 Hypokalemia E87.6 Hypomagnesemia E83.42
--- NOTE | 2021-10-23 12:15 | USCV_ITS ---
Bee Zheng Age: 71 Gender: F : 1950 Exam Date: 10/23/2021 16:22 Ordering Phys: Etta Mckeon MD Technologist: Lucrecia Velasquez Exam Location: [facility] – [place] Indication: ULCERS BILATERAL FEET Risk Factors: Unknown Previous Vascular Surgery: Unknown RIGHT LEFT Waveform Velocity (cm/s) Velocity (cm/s) Waveform Biphasic 117.0 Iliac Prox 89.0 Biphasic Biphasic 81.7 Iliac Mid 72.5 Biphasic Biphasic 61.3 Iliac Distal 59.8 Biphasic Biphasic 45.8 ORACLE HRMS DEVELOPER 51.5 Biphasic Biphasic SFA Prox Biphasic 68.7 78.0 Biphasic 66.1 SFA Mid 66.3 Biphasic Biphasic 50.9 SFA Dist 72.4 Biphasic Biphasic 58.5 POP 49.9 Biphasic Monophasic 43.2 CAREER PLACEMENT SERVICES COUNSELOR 39.0 Monophasic FINDINGS COULD NOT GET TO DPA ON EITHER FOOT. COULD NOT DO JEY S Patent iliac, femoral, popliteal, and posterior tibial arteries bilaterally. Minimal plaques are noted in the iliac femoral and popliteal arteries Dorsalis pedis artery could not be assessed because of the dressing CONCLUSIONS Patent above-mentioned vessels bilaterally Mild diffuse plaques in the iliac, femoral and popliteal arteries bilaterally. Dorsalis pedis artery could not be visualized. Possibly no significant arterial obstruction, based on the above findings. Dr Laura Hutchins MD FAC (Electronically Signed) Final Date: 23 October 2021 19:44 S
[2021-10-23] MEDS: magnesium sulfate premix 2 GM/50 ML PIGGYBACK IV (12:21)
[2021-10-23] MEDS: lidocaine 1% 5 ML in potassium chloride premix 100 ML 25 ML IV (12:22)
[2021-10-23 15:50] VITALS: BP 99/65; PULSE 55; RESP 18; TEMP 37; O2SAT 90
[2021-10-23 17:00] LABS: Glucose Point of Care 104 mg/dL (70-110)
[2021-10-23 20:00] VITALS: BP 95/59; PULSE 103; RESP 18; TEMP 36.4; O2SAT 103
[2021-10-23 21:53] LABS: Glucose Point of Care 180 mg/dL (70-110)
[2021-10-24] VITALS (13 sets, daily range): BP systolic 92–124; BP diastolic 55–74; PULSE 70–111; RESP 15–22; TEMP 36.5–37.1; O2SAT 89–96
[2021-10-24 06:19] LABS: Basophils % 0.2 %; Hemoglobin 7.9 g/dL (11.5-15.3); Lymphocytes # 0.3 10^3/uL (0.8-4.8); Lymphocytes % 5.4 %; Mean Corpuscular HGB Conc 30.4 g/dL (30.0-36.0); Mean Corpuscular Hemoglobin 29.8 pg (28.0-34.0); Mean Corpuscular Volume 98.1 fl (81-99); Mean Platelet Volume 11.8 fL (7.4-10.4); Monocytes # 0.2 10^3/uL (0.2-0.9); Monocytes % 4.4 %; Neutrophils # 4.51 10^3/uL (1.8-7.7); Neutrophils % 87.3 %; Nucleated Red Blood Cells % 0 %; Platelet Count 110 10^3/cmm (130-400); Red Blood Count 2.65 10^6/uL (4.1-5.3); Red Cell Distribution Width 22.6 % (12.1-15.1); White Blood Count 5.2 10^3/uL (4.0-10.0)
[2021-10-24 06:43] LABS: Anion Gap 12.3 (5-19); Blood Urea Nitrogen 20 mg/dL (8-23); Calcium 7.9 mg/dL (8.5-10.5); Carbon Dioxide 29 mmol/L (22-29); Chloride 100 mmol/L (98-107); Glomerular Filtration Rate 71.1 mL/min (90-130); Glucose 103 mg/dL (65-115); Magnesium 1.4 mg/dL (1.7-2.3); Osmolality Calculated 289 mOsm/kg (285-295); Potassium 3.3 mmol/L (3.5-5.1); Sodium 138 mmol/L (136-145)
[2021-10-24 06:44] LABS: Glucose Point of Care 102 mg/dL (70-110)
[2021-10-24] MEDS: gabapentin 300 mg Capsule PO ×2 (09:01→17:37)
[2021-10-24] MEDS: levothyroxine 125 mcg Tablet PO (09:01)
[2021-10-24] MEDS: pantoprazole DR 40 mg Tablet PO ×2 (09:01→17:37)
[2021-10-24] MEDS: rivaroxaban 10 mg Tablet 20 MG PO (09:02)
[2021-10-24] MEDS: potassium chloride ER 20 mEq Tablet 40 MEQ PO ×2 (09:02→20:34)
[2021-10-24] MEDS: anastrozole 1 mg Tablet PO (09:03)
[2021-10-24] MEDS: bacitracin ointment 28 gm 1 APPLIC TOPICAL (09:03)
[2021-10-24] MEDS: NON-FORMULARY MEDICATION (Sildenafil (Pulm.Hypertension) 20 mg tablet) 20 EACH PO ×2 (09:04→20:33)
--- NOTE | 2021-10-24 09:44 | P.PN_ITS ---
Subjective Subjective: Interval history: Hemoglobin 7.9, still hypotensive, systolic blood pressure improved with albumin We will check FOBT Concerning history of ulcer colitis we will give 1 unit PRBC hold xeralto No overnight events patient is feeling better Able to work with physical therapy Awaiting placement Vitals/I&O/Wt Last Vital Signs Temp 97.9 F 10/24/21 07:36 Pulse 93 10/24/21 07:36 Resp 18 10/24/21 07:36 BP 124/62 10/24/21 07:36 Pulse Ox 95 10/24/21 07:36 10/23/21 10/24/21 10/24/21 22:59 06:59 14:59 Intake Total 325 / 475 240 / 715 Balance 325 / 325 240 / 565 Physical Exam Narrative: EXAM NARRATIVE: No overnight events less edematous extremities as compared to day of admission In good spirits, nonfocal neuro exam EOMI, PERRLA Abdomen soft S1, S2 Variable Third spacing signs improving Right foot wound seems to have good granulation tissue and clean base, no signs of infection Urinary Catheter Management^: Rothman: Cath Placed During This Visit: yes, but has since been removed by the nurse Reason for Continuing Indwelling Catheter: Decision to DC Catheter Urinary Catheter Date of Insertion: 10/21/21 Urinary Catheter Time of Insertion: 22:40 Date Urinary Catheter Removed: 10/23/21 Time Urinary Catheter Discontinued: 11:17 Data : 10/24/21 05:44 10/24/21 05:44 Micro: Microbiology 10/21/21 18:33 Urine Culture - Final Urine,Clean Catch Escherichia coli A&P Assessment and plan (1) Hypomagnesemia: Status: Acute (2) Hypokalemia: Status: Acute (3) Lower extremity edema: Status: Acute (4) Weakness: Status: Acute (5) Pulmonary embolism: Status: Acute Qualifiers: Acute cor pulmonale presence: unspecified Chronicity: acute Pulmonary embolism type: unspecified Qualified Code(s): I26.99 - Other pulmonary embolism without acute cor pulmonale (6) S/P insertion of IVC (inferior vena caval) filter: Status: Acute (7) Pulmonary hypertension: Status: Acute (8) UC (ulcerative colitis): Status: Acute (9) Anemia: Status: Acute Additional A&P Information Acute on chronic normocytic anemia Blood loss anemia Active lower GI bleed Blood noted by the patient Has history of ulcerative colitis We will give 1 unit PRBC Hold anticoagulating agent Patient wants to keep her anticoagulating agent, I told her to check her CBC within next 4 to 5 days and if stable can resume her anticoagulating agent IVC filter has been removed She was recently weaned off of steroids Left upper arm no signs of DVT No signs of DVT of lower extremities Extremity edema improving with albumin Right foot wound seems to be showing good granulation tissue, clean base no signs of infection Continue wound dressing with topical antibiotics Hypomagnesemia, hypokalemia, repleted Pulmonary hypertension: Currently requiring 2 L, at home uses 4 L of oxygen Full code Consistent carb diet Sliding scale Awaiting placement Attestations Medical Necessity Statement*: Continue medical management Time Spent in Patient Care: less than 15 minutes Coding Level of Care Code Acute Advisor To Command In Combat for g Fwd Diagnoses Hypomagnesemia E83.42 Hypokalemia E87.6 Lower extremity edema R60.0 Weakness R53.1 Pulmonary embolism I26.99 Acute cor pulmonale presence: unspecified Chronicity: acute Pulmonary embolism type: unspecified S/P insertion of IVC (inferior vena caval) filter Z95.828 Pulmonary hypertension I27.20 UC (ulcerative colitis) K51.90 Anemia D64.9
[2021-10-24 11:34] LABS: Glucose Point of Care 105 mg/dL (70-110)
[2021-10-24] MEDS: sodium chloride 0.9% (100 ml) 100 ML 50 ML (15:04)
--- NOTE | 2021-10-24 15:17 | PC.OT ---
Patient reports with low HGB lvls of 7.9. Patient receiving transfusion upon therapist arrival. Patient to hold therapy until HGB reported increased lvls.
[2021-10-24 17:17] LABS: Glucose Point of Care 90 mg/dL (70-110)
[2021-10-24] MEDS: FUROsemide 10 mg/mL SDV 10mL 60 MG IVP (17:47)
--- NOTE | 2021-10-24 17:51 | PC.NURSE ---
notified Dr Mckeon that patient received blood and she now has SOB and HR of 114. Do you want to give her some Lasix? Blood just finished Per Dr Mckeon, Lasix 60 mg ivp Java Jsf Developer put order in. Patient is requesting something more than Tylenol for pain and something for her cough. Dr Mckeon notified.
[2021-10-24] MEDS: acetaminophen 325 mg Tablet 650 MG PO (20:34)
[2021-10-24 20:43] LABS: Hemoglobin 10.4 g/dL (11.5-15.3); Mean Corpuscular HGB Conc 30.6 g/dL (30.0-36.0); Mean Corpuscular Hemoglobin 29.8 pg (28.0-34.0); Mean Corpuscular Volume 97.4 fl (81-99); Mean Platelet Volume 10.7 fL (7.4-10.4); Platelet Count 129 10^3/cmm (130-400); Red Blood Count 3.49 10^6/uL (4.1-5.3); Red Cell Distribution Width 23.2 % (12.1-15.1); White Blood Count 8.8 10^3/uL (4.0-10.0)
[2021-10-24 21:09] LABS: Absolute Segmented Neutrophil 7.7 10/cmm (1.6-7.1); Segmented Neutrophils 88 %; Total Cells Counted 100 (0-100)
[2021-10-24 21:10] LABS: Absolute Neutrophil 7.7 10^3/cmm (1.4-6.5); Eosinophils 0 %; Lymphocytes 4 %; Lymphocytes Absolute 0.5 10^3/cmm (1.2-3.4); Monocytes Absolute 0.5 10^3/cmm (0.1-0.6); Platelet Estimate Decreased (Normal)
--- NOTE | 2021-10-24 21:10 | PC.NURSE ---
i reported high pulse 109 to nurse
[2021-10-24 21:31] LABS: Glucose Point of Care 99 mg/dL (70-110)
[2021-10-25] VITALS: BP 104/68; PULSE 70; RESP 16; TEMP 36.7; O2SAT 92
[2021-10-25 04:00] VITALS: BP 100/64; PULSE 92; RESP 16; TEMP 36.6; O2SAT 92
[2021-10-25] MEDS: FUROsemide 10 mg/mL SDV 2mL 20 MG IVP ×2 (06:28→10:46)
[2021-10-25] MEDS: ondansetron 2 mg/ML SDV 2 mL 4 MG IVP (06:28)
[2021-10-25 06:46] LABS: Basophils % 0.3 %; Eosinophils % 0.5 %; Hematocrit 32.3 % (37.0-47.0); Hemoglobin 9.9 g/dL (11.5-15.3); Lymphocytes # 0.4 10^3/uL (0.8-4.8); Lymphocytes % 6.2 %; Mean Corpuscular HGB Conc 30.7 g/dL (30.0-36.0); Mean Corpuscular Hemoglobin 29.6 pg (28.0-34.0); Mean Corpuscular Volume 96.4 fl (81-99); Mean Platelet Volume 10.9 fL (7.4-10.4); Monocytes # 0.2 10^3/uL (0.2-0.9); Monocytes % 3.2 %; Neutrophils # 5.15 10^3/uL (1.8-7.7); Neutrophils % 83.6 %; Nucleated Red Blood Cells % 0 %; Platelet Count 115 10^3/cmm (130-400); Red Blood Count 3.35 10^6/uL (4.1-5.3); Red Cell Distribution Width 23.3 % (12.1-15.1); White Blood Count 6.2 10^3/uL (4.0-10.0)
[2021-10-25 06:50] LABS: Glucose Point of Care 65 mg/dL (70-110)
[2021-10-25 07:15] LABS: Anion Gap 12.7 (5-19); Blood Urea Nitrogen 19 mg/dL (8-23); Calcium 7.7 mg/dL (8.5-10.5); Carbon Dioxide 29 mmol/L (22-29); Chloride 103 mmol/L (98-107); Glucose 72 mg/dL (65-115); Osmolality Calculated 293 mOsm/kg (285-295); Potassium 3.7 mmol/L (3.5-5.1); Sodium 141 mmol/L (136-145)
[2021-10-25 07:48] LABS: Slide Review Slide Review Perform
[2021-10-25 08:00] VITALS: BP 115/76; PULSE 76; RESP 22; TEMP 36.5; O2SAT 97
[2021-10-25 08:22] LABS: Glucose Point of Care 93 mg/dL (70-110)
[2021-10-25 09:03] VITALS: PULSE 70; RESP 16; O2SAT 92
--- NOTE | 2021-10-25 10:19 | PM.PN ---
Subjective Subjective: Interval history: Patient was resting comfortably however she is extremely ptotic and fatigued currently requiring 2 L of oxygen, overnight she became fluid overloaded experienced wheezing and received IV Lasix Patient is stating that she has been using bedpan, she did not have enough strength to get out of bed with physical therapy she was only able to get out of bed and sit in a chair, she is maximal assist She has a wound on the dorsum of her right foot which is opened showing good signs of healing with deconditioning, electrolyte imbalance she does not have enough strength to take care of herself at home, she will need rehab She is getting hydroferra wound care dressing along with topical and oral antibiotic Status post 1 unit PRBC Intermittent hematochezia with history of ulcerative colitis I did speak with the patient and her son that she might need hourly sign language interpreter for her ulcerative colitis history and hematochezia, she is not interested to be transferred to any other hospital or see hourly sign language interpreter for now Vitals/I&O/Wt Last Vital Signs Temp 97.7 F 10/25/21 08:00 Pulse 70 10/25/21 09:03 Resp 16 10/25/21 09:03 BP 115/76 10/25/21 08:00 Pulse Ox 92 10/25/21 09:03 10/24/21 10/25/21 10/25/21 22:59 06:59 14:59 Intake Total 450 / 502 240 / 742 240 / 240 Balance 450 / 502 240 / 742 240 / 240 Physical Exam Narrative: EXAM NARRATIVE: Patient was resting comfortably however extremely deconditioned Saturating well on 2 L nasal cannula Skin wrinkling noted however she has wheezing on lung auscultation No acute respiratory distress No conversational dyspnea Abdomen soft Lower extremity edema Multiple skin ulcers Right dorsal foot blister open, superficial layer has been sloughed off, clean wound no signs of cellulitis, EOMI, PERRLA Nonfocal neuro exam Urinary Catheter Management^: Rothman: Cath Placed During This Visit: yes, but has since been removed by the nurse Reason for Continuing Indwelling Catheter: Decision to DC Catheter Urinary Catheter Date of Insertion: 10/21/21 Urinary Catheter Time of Insertion: 22:40 Date Urinary Catheter Removed: 10/23/21 Time Urinary Catheter Discontinued: 11:17 Data : 10/25/21 05:43 10/25/21 05:43 Micro: Microbiology 10/25/21 00:15 Occult Blood (FIT) - Final Stool Routine Collection A&P Assessment and plan (1) Anemia: Status: Acute (2) Hypomagnesemia: Status: Acute (3) Hypokalemia: Status: Acute (4) Lower extremity edema: Status: Acute (5) Weakness: Status: Acute (6) Pulmonary embolism: Status: Acute Qualifiers: Pulmonary embolism type: unspecified Chronicity: acute Acute cor pulmonale presence: unspecified Qualified Code(s): I26.99 - Other pulmonary embolism without acute cor pulmonale (7) S/P insertion of IVC (inferior vena caval) filter: Status: Acute (8) Pulmonary hypertension: Status: Acute (9) UC (ulcerative colitis): Status: Acute (10) Hematochezia: Status: Acute (11) Physical deconditioning: Status: Acute (12) Wound of right foot: Status: Acute Additional A&P Information Hematochezia related to ulcerative colitis Acute on chronic normocytic anemia Status post 1 unit PRBC on 10/24 Patient will need gastroenterology, she is not interested to follow-up or get transferred at this point Her Blood pressure has slightly improved Hypokalemia: Hypomagnesemia: Repleted History of PE status post IVC filter placement currently on rivaroxaban: I would recommend holding her rivaroxaban for at least 2 weeks, patient does not want to discontinue her anticoagulating agent for her risk of stroke Left upper arm edema however no signs of DVT Looks like improved Albuminemia: Status post IV albumin during hospitalization Right foot wound no signs of pyoderma gangrenosum, it seems superficial skin sloughing of her blister, no active signs of infection, for empirical coverage am giving her doxycycline and topical bacitracin Hydrofera Blue wound care dressing Chronic hypoxia: At home uses 4 L currently doing well on 2 L Extremely deconditioned will need rehab Carb diet Full code DVT prophylaxis: Holding anticoagulating agent: SCDs Awaiting placement Attestations Medical Necessity Statement*: Continue medical management, awaiting placement Time Spent in Patient Care: 16 - 35 minutes Coding Level of Care Code Acute Gate Person for Oneliag Fwsarath Diagnoses Anemia D64.9 Hypomagnesemia E83.42 Hypokalemia E87.6 Lower extremity edema R60.0 Weakness R53.1 Pulmonary embolism I26.99 Pulmonary embolism type: unspecified Chronicity: acute Acute cor pulmonale presence: unspecified S/P insertion of IVC (inferior vena caval) filter Z95.828 Pulmonary hypertension I27.20 UC (ulcerative colitis) K51.90 Hematochezia K92.1 Physical deconditioning R53.81 Wound of right foot S91.301A
[2021-10-25] MEDS: NON-FORMULARY MEDICATION (Sildenafil (Pulm.Hypertension) 20 mg tablet) 20 EACH PO (10:33)
[2021-10-25] MEDS: pantoprazole DR 40 mg Tablet PO (10:33)
[2021-10-25] MEDS: gabapentin 300 mg Capsule PO (10:33)
[2021-10-25] MEDS: bacitracin ointment 28 gm 1 APPLIC TOPICAL (10:34)
[2021-10-25] MEDS: levothyroxine 125 mcg Tablet PO (10:34)
[2021-10-25 11:23] LABS: Glucose Point of Care 89 mg/dL (70-110)
--- NOTE | 2021-10-25 11:42 | P.DS_ITS ---
Discharge Providers Date of Admission: 10/22/21 14:40 Date of Discharge: October 25, 2021 Attending Provider at Admission: Shanti Tsang MD Attending Provider at Discharge: Etta Mckeon MD Primary Care Provider: FABY Howard Diagnoses at Discharge Discharge Diagnosis (1) Anemia: Status: Acute (2) Hypomagnesemia: Status: Acute (3) Hypokalemia: Status: Acute (4) Lower extremity edema: Status: Acute (5) Weakness: Status: Acute (6) Pulmonary embolism: Status: Acute Qualifiers: Pulmonary embolism type: unspecified Chronicity: acute Acute cor pulmonale presence: unspecified Qualified Code(s): I26.99 - Other pulmonary embolism without acute cor pulmonale (7) S/P insertion of IVC (inferior vena caval) filter: Status: Acute (8) Pulmonary hypertension: Status: Acute (9) UC (ulcerative colitis): Status: Acute (10) Hematochezia: Status: Acute (11) Physical deconditioning: Status: Acute (12) Wound of right foot: Status: Acute Reason for Visit Reason for Visit: PITTING EDEMA Hospital Course Hospital Course History of Present Illness Dr. Sharan Massey Marce is a 71 year old female with breast cancer, currently on anastrozole, history of massive pulmonary embolism requiring TPA April 2021 subsequent placement of an IVC filter which has been removed in August 2021, on Xarelto 20 mg daily at this time. Prior evidence of RV strain noted at the time which is since resolved on a subsequent echo. Follows as an outpatient with pulmonary service due to persistent dyspnea and lower extremity edema. Has undergone right and left heart catheterization in August 2021 which was without any evidence of significant coronary artery disease. Right heart cath showed mean pulmonary pressure of 46. Her Lasix dose was recently increased to 40 mg p.o. twice daily. She has additionally recently been diagnosed with ulcerative colitis and started on 20 mg of p.o. prednisone daily with development of mata facies as documented on outpatient follow-ups. Sildenafil 20 mg 3 times a day was added for pulmonary hypertension. She uses supplemental oxygen at home usually 2 L/min. Her recent PFT as outpatient showed moderate obstructive defect. Presented to the emergency room overnight due to worsening lower extremity edema, now additionally with development of skin blisters over the dorsum of her feet after she tried to place some socks. Her superficial ulcerations are currently painful, and she is having a difficult time ambulating. Lower extremity Duplay was negative for any venous thromboembolism. B/L dorsalis pedis pulses are currently palpable Hospital course Admitted for management evaluation of her open blister, her blister had no signs of infection, no sign of DVT or arterial ischemia venous arterial Doppler were obtained. She was given doxycycline and topical bacitracin and Hydrofera Blue wound care dressing. With compression wraps her leg swelling did improve. For her hypoalbuminemia, low blood pressure and third spacing she was given albumin for 48 hours every 12hrs IV bags. Her third spacing did improve. Her Lasix was held secondary to severe electrolyte imbalance. Her potassium, magnesium were repleted aggressively. Her hemoglobin gradually declined, she was having hematochezia however no active diarrhea. Her stools were formed. She recently finished steroid taper. She was given 1 unit PRBC on 10/24 which improved her blood pressure. Afterwards she did require IV Lasix. At home she uses 4 L of oxygen during this hospitalization she did well on 2 L. Have counseled patient to see a aerospace project manager, our general surgeons would not do colonoscopy for ulcerative colitis patients and there is no acute indication. I have asked her to hold her anticoagulating agent for next 2 weeks recheck CBC and if it stays above 9 she can resume anticoagulating agent. She does not want to stop her anticoagulating agent. She is extremely tired and fatigued not able to ambulate without any assistance, PT recommended rehab. She has been accepted at [facility]. Son updated. She will get Lasix, potassium, magnesium, calcium supplementation, holding anticoagulant agent for 2 weeks, recheck CBC, will need wound care clinic appointment, she has history of pulmonary hypertension mean arterial pressure of pulmonary vessel 46 mmHg, no signs of coronary artery disease, she check sildenafil 20 mg 3 times a day. She has moderate COPD. Physical Exam Narrative: EXAM NARRATIVE: Patient was resting comfortably however extremely deconditioned Saturating well on 2 L nasal cannula Skin wrinkling noted however she has wheezing on lung auscultation No acute respiratory distress No conversational dyspnea Abdomen soft Lower extremity edema Multiple skin ulcers Right dorsal foot blister open, superficial layer has been sloughed off, clean wound no signs of cellulitis, EOMI, PERRLA Nonfocal neuro exam Urinary Catheter Management^: Rothman: Cath Placed During This Visit: yes, but has since been removed by the nurse Reason for Continuing Indwelling Catheter: Decision to DC Catheter Urinary Catheter Date of Insertion: 10/21/21 Urinary Catheter Time of Insertion: 22:40 Date Urinary Catheter Removed: 10/23/21 Time Urinary Catheter Discontinued: 11:17 Discharge Data Data Completed and Pending: Completed Studies During Hospitalization Category Date Time Status XR chest 1V laney ble [id number] Stat Exams 10/21/21 16:36 [place] [address] Rout ine Ultrasound 10/23/21 12:15 [place] [address] Stat Ultrasound 10/21/21 16:36 Completed US venous duplex upper extremity LT [CV venous duplex Ultrasound 10/23/21 09:15 [place] [id number]] Rout ine Pending at discharge Category Date Time Status Basic Metabolic P nathan AM LABS Lab 10/26/21 04:00 Ordered Blood Culture Sta t Lab 10/21/21 17:45 Results Complete Blood Co unt w/Auto AM LABS Lab 10/26/21 04:00 Ordered Magnesium AM LABS Lab 10/26/21 04:00 Ordered Labs from last 24 hours 10/25/21 10/25/21 10/25/21 11:17 08:20 06:36 WBC RBC Hgb Hct MCV MCH MCHC RDW Plt Count MPV Neut % (Auto) Lymph % (Auto) [place] % (Auto) Eos % (Auto) Baso % (Auto) Neut # (Auto) Lymph # (Auto) [place] # (Auto) Eos # (Auto) Baso # (Auto) Nucleated RBC % (a uto) Total Counted Atypical Lymphs % Absolute Neutrophi ls Segmented Neutroph ils Abs Segm Neuts (Ma n) Band Neutrophils Abs Band Neuts (Ma n) Absolute Lymphocyt es Lymphocytes (Manua l) Monocytes (Manual) Absolute Monocytes Eosinophils (Manua l) Absolute Eosinophi ls Basophils (Manual) Absolute Basophils Nucleated RBCs # Platelet Estimate Sodium Potassium Chloride Carbon Dioxide Anion Gap BUN Creatinine GFR Calculation Glucose POC Glucose 89 93 65 L Calculated Osmolal ity Calcium Blood Type Rho(D) Type Antibody Screen Crossmatch 10/25/21 10/25/21 10/24/21 05:43 05:43 21:27 WBC 6.2 RBC 3.35 L Hgb 9.9 L Hct 32.3 L MCV 96.4 MCH 29.6 MCHC 30.7 RDW 23.3 H Plt Count 115 L MPV 10.9 H Neut % (Auto) 83.6 Lymph % (Auto) 6.2 [place] % (Auto) 3.2 Eos % (Auto) 0.5 Baso % (Auto) 0.3 Neut # (Auto) 5.15 Lymph # (Auto) 0.4 L [place] # (Auto) 0.2 Eos # (Auto) 0.0 Baso # (Auto) 0.0 Nucleated RBC % (a uto) 0 Total Counted Atypical Lymphs % Absolute Neutrophi ls Segmented Neutroph ils Abs Segm Neuts (Ma n) Band Neutrophils Abs Band Neuts (Ma n) Absolute Lymphocyt es Lymphocytes (Man[place] l) Monocytes (Manual) Absolute Monocytes Eosinophils (Manua l) Absolute Eosinophi ls Basophils (Manual) Absolute Basophils Nucleated RBCs # 0.0 Platelet Estimate Sodium 141 Potassium 3.7 Chloride 103 Carbon Dioxide 29 Anion Gap 12.7 BUN 19 Creatinine 0.7 GFR Calculation 83.0 L Glucose 72 POC Glucose 99 Calculated Osmolal ity 293 Calcium 7.7 L Blood Type Rho(D) Type Antibody Screen Crossmatch 10/24/21 10/24/21 10/24/21 20:28 17:12 11:16 WBC 8.8 RBC 3.49 L Hgb 10.4 L D Hct 34.0 L D MCV 97.4 MCH 29.8 MCHC 30.6 RDW 23.2 H Plt Count 129 L MPV 10.7 H Neut % (Auto) Lymph % (Auto) [place] % (Auto) Eos % (Auto) Baso % (Auto) Neut # (Auto) Lymph # (Auto) [place] # (Auto) Eos # (Auto) Baso # (Auto) Nucleated RBC % (a uto) Total Counted 100 Atypical Lymphs % 2.0 Absolute Neutrophi ls 7.7 H Segmented Neutroph ils 88 Abs Segm Neuts (Ma n) 7.7 H Band Neutrophils 0.0 Abs Band Neuts (Ma n) 0.0 Absolute Lymphocyt es 0.5 L Lymphocytes (Manua l) 4 Monocytes (Manual) 6.0 Absolute Monocytes 0.5 Eosinophils (Manua l) 0 Absolute Eosinophi ls 0.0 Basophils (Manual) 0.0 Absolute Basophils 0.0 Nucleated RBCs # Platelet Estimate Decreased L Sodium Potassium Chloride Carbon Dioxide Anion Gap BUN Creatinine GFR Calculation Glucose POC Glucose 90 Calculated Osmolal ity Calcium Blood Type A Positive Rho(D) Type Positive Antibody Screen Negative Crossmatch See Detail Vitals: Last Vital Signs Temp 97.7 F 10/25/21 08:00 Pulse 70 10/25/21 09:03 Resp 16 10/25/21 09:03 BP 115/76 10/25/21 08:00 Pulse Ox 92 10/25/21 09:03 Discharge Plan Discharge Patient Disposition: Xfer SNF Condition: Stable Prescriptions: New Calcium 500 With D 500 mg(1,250mg) -400 unit tablet 1 tab PO DAILY Qty: 60 RF: 0 magnesium oxide 400 mg magnesium tablet 400 mg PO BID 10 Days Qty: 20 RF: 0 doxycycline hyclate 100 mg tablet 100 mg PO BID 3 Days Qty: 6 RF: 0 nugdwqvkel-[id number] vera 500-10 unit-mg/gram ointment 1 g topical TID Qty: 28 RF: 0 Continued metoprolol succinate 25 mg tablet extended release 24 hr 12.5 mg PO DAILY Qty: 45 RF: 3 sildenafil (pulm.hypertension) 20 mg tablet 20 mg PO TID 30 Days Qty: 90 RF: 3 anastrozole 1 mg Tablet 1 mg PO DAILY RF: 0 levothyroxine [Euthyrox] 125 mcg tablet 125 mcg PO DAILY RF: 0 acetaminophen 650 mg Tablet 650 mg PO Q6H PRN (Reason: Pain) RF: 0 loperamide 2 mg Capsule 4 mg PO BID PRN (Reason: Diarrhea) RF: 0 pantoprazole 40 mg tablet,delayed release (DR/EC) 40 mg PO DAILY RF: 0 Probiotic 3 billion cell Capsule 3,000 mmu cells PO DAILY RF: 0 gabapentin 300 mg capsule 300 mg PO TID RF: 0 furosemide 40 mg tablet 80 mg PO DAILY RF: 0 potassium chloride 10 mEq tablet extended release 20 meq PO BID RF: 0 Held Eliquis 5 mg tablet 5 mg PO BID MDD see pharmacy comment RF: 0 Hold Instructions: Resume on 11/08/21. Resume if hemoglobin above 9, You can use either Xarelto or Eliquis whichever is cheaper for you Discontinued prednisone 20 mg Tablet 20 mg PO DAILY MDD see pharmacy comment RF: 0 Discharge Orders: Discharge Order (Routine); Ordered 10/25/21 Ordered By: Etta Mckeon Other Ambulatory Orders: Complete Blood Count w/Auto (Routine) Timeframe: 3 Days Location: Determined by Patient Ordered By: Etta Mckeon Referrals: [facility] [Outside] Magalie Patino FNP [Primary Care Provider] - 2 weeks [facility], [Staff Physician] - 1 week Discharge Diet: Cardiac Discharge Activity: Increase activity as tolerated and As per PT/OT instructions Patient Instructions: Opioid Safety Activity Restrictions/Additional Instructions: Please take your blood thinner only if your hemoglobin stays above 9 weeks, you have been given 1 unit of blood for bleeding related to ulcerative colitis, in case there is worsening of bleeding he will need aerospace project manager most likely in [place] Discharge Attestations Time Spent in Discharge Care*: less than 30 min Status at Discharge: Cognitive status at discharge: cognitively intact , Behavioral status at discharge: cooperative , Quality Metrics Clinical Quality Measures During this hospital stay, did patient experience: None Coding Level of Care Code Acute Chg FW DC note Diagnoses Anemia D64.9 Hypomagnesemia E83.42 Hypokalemia E87.6 Lower extremity edema R60.0 Weakness R53.1 Pulmonary embolism I26.99 Pulmonary embolism type: unspecified Chronicity: acute Acute cor pulmonale presence: unspecified S/P insertion of IVC (inferior vena caval) filter Z95.828 Pulmonary hypertension I27.20 UC (ulcerative colitis) K51.90 Hematochezia K92.1 Physical deconditioning R53.81 Wound of right foot S91.301A
--- NOTE | 2021-10-25 11:50 | PC.SOCIAL ---
IMM update IMM updated with patient. Verbalized an understanding. Copy Pg 2 provided. Initialled, dated, timed, and placed in chart.
[2021-10-25 12:00] VITALS: BP 121/69; PULSE 72; RESP 15; TEMP 36.6; O2SAT 94
--- NOTE | 2021-10-25 12:48 | PC.NURSE ---
Report called to Adriano Ballard 10/25/2021 at 1244
[2021-10-25 13:40] LABS: Adenovirus Not Detected (NOT DETECT); Chlamydia Pneumoniae Not Detected (NOT DETECT); Coronavirus 229E,HKU1,NL63,OC4 Not Detected (NOT DETECT); Human Metapneumovirus Detected (NOT DETECT); Human Rhinovirus/Enterovirus Not Detected (NOT DETECT); Influenza A Not Detected (NOT DETECT); Influenza A H1 Not Detected (NOT DETECT); Influenza A H1-2009 Not Detected (NOT DETECT); Influenza A H3 Not Detected (NOT DETECT); Influenza B Not Detected (NOT DETECT); Mycoplasma Pneumoniae Not Detected (NOT DETECT); Parainfluenza Virus Type 1 Not Detected (NOT DETECT); Parainfluenza Virus Type 2 Not Detected (NOT DETECT); Parainfluenza Virus Type 3 Not Detected (NOT DETECT); Parainfluenza Virus Type 4 Not Detected (NOT DETECT); Respiratory Syncytial Virus A Not Detected (NOT DETECT); Respiratory Syncytial Virus B Not Detected (NOT DETECT); SARS-COV-2 Not Detected (NOT DETECT)
[2021-10-25 13:51] LABS: Human Metapneumovirus Detected (NOT DETECT); Human Rhinovirus/Enterovirus Not Detected (NOT DETECT); Results from GEN
[2021-10-25] MEDS: anastrozole 1 mg Tablet PO (13:59)
--- NOTE | 2021-10-25 14:24 | PC.NURSE ---
patient taken to SNF via wheelchair and Oxygen. SNF staff borrowed our oxygen tank. paperwork given to SNF staff.
[2021-10-25 14:25] VITALS: BP 121/69; PULSE 72; RESP 15; TEMP 36.6; O2SAT 94
== END 2021-10-25 14:26 | disposition skilled nursing facility (03) | DRG 948 ==
LOC: ER 21:05 → MEDSURG 21:54
PROVIDERS: Family Medicine; Admitting Provider Student in an Organized Health Care Education/Training Program; Emergency Provider Emergency Medicine; PCP Nurse Practitioner Family; Visit Provider Internal Medicine
DX: R60.0 Localized edema (principal); K92.1 Melena; N17.9 Acute kidney failure, unspecified; C50.912 Malignant neoplasm of unspecified site of left female breast; C50.911 Malignant neoplasm of unspecified site of right female breast; Z17.0 Estrogen receptor positive status [ER+]; Z86.711 Personal history of pulmonary embolism; D50.0 Iron deficiency anemia secondary to blood loss (chronic); Z79.811 Long term (current) use of aromatase inhibitors; Z90.13 Acquired absence of bilateral breasts and nipples; Z92.3 Personal history of irradiation; Z92.21 Personal history of antineoplastic chemotherapy; G62.2 Polyneuropathy due to other toxic agents; T45.1X5D Adverse effect of antineoplastic and immunosuppressive drugs, subsequent encounter; Z86.718 Personal history of other venous thrombosis and embolism; Z85.42 Personal history of malignant neoplasm of other parts of uterus; Z90.710 Acquired absence of both cervix and uterus; Z90.722 Acquired absence of ovaries, bilateral; E03.9 Hypothyroidism, unspecified; Z95.828 Presence of other vascular implants and grafts; I27.20 Pulmonary hypertension, unspecified; J44.9 Chronic obstructive pulmonary disease, unspecified; S90.821A Blister (nonthermal), right foot, initial encounter; X58.XXXA Exposure to other specified factors, initial encounter; E83.42 Hypomagnesemia; N18.9 Chronic kidney disease, unspecified; E87.5 Hyperkalemia; Z99.81 Dependence on supplemental oxygen; Z87.891 Personal history of nicotine dependence
CPT/HCPCS: 36415; 36416; 36430; 36591; 51701; 51702; 71045; 80048; 80053; 81001; 82274; 82962; 83036; 83735; 83880; 85007; 85025; 85027; 86850; 86900; 86920; 87040; 87077; 87086; 87186; 87635; 87801; 93005; 93925; 93970; 93971; 96374; 97110; 97140; 97161; 97165; 97530; 97535; 99285; G0378; J1940; J2405; J3475; J3480; J7512; J8999; P9016; P9047

== ENCOUNTER 2021-11-07 14:01 | Outpatient (CLI) | payer MEDICARE, OTHER, SELFPAY ==
[2021-11-07 14:39] LABS: Basophils # 0.1 10^3/uL (0.0-0.1); Basophils % 0.8 %; Eosinophils # 0.1 10^3/uL (0.0-0.8); Eosinophils % 1.1 %; Hematocrit 32.1 % (37.0-47.0); Hemoglobin 9.9 g/dL (11.5-15.3); Lymphocytes # 0.6 10^3/uL (0.8-4.8); Lymphocytes % 8.7 %; Mean Corpuscular HGB Conc 30.8 g/dL (30.0-36.0); Mean Corpuscular Hemoglobin 31.4 pg (28.0-34.0); Mean Corpuscular Volume 101.9 fl (81-99); Mean Platelet Volume 11.2 fL (7.4-10.4); Monocytes # 0.8 10^3/uL (0.2-0.9); Monocytes % 10.7 %; Neutrophils # 5.74 10^3/uL (1.8-7.7); Neutrophils % 77.8 %; Nucleated Red Blood Cells % 0 %; Platelet Count 121 10^3/cmm (130-400); Red Blood Count 3.15 10^6/uL (4.1-5.3); Red Cell Distribution Width 20.8 % (12.1-15.1); White Blood Count 7.4 10^3/uL (4.0-10.0)
[2021-11-07 14:56] LABS: Alanine Aminotransferase 11 U/L (0-33); Albumin Level 2.5 g/dL (3.5-5.2); Alkaline Phosphatase 348 IU/L (35-105); Anion Gap 13.3 (5-19); Aspartate Amino Transferase 24 U/L (0-32); Blood Urea Nitrogen 12 mg/dL (8-23); Calcium 7.6 mg/dL (8.5-10.5); Carbon Dioxide 31 mmol/L (22-29); Chloride 98 mmol/L (98-107); Globulin 2.4 g/dL (1.3-4.6); Glucose 114 mg/dL (65-115); Osmolality Calculated 289 mOsm/kg (285-295); Potassium 3.3 mmol/L (3.5-5.1); Sodium 139 mmol/L (136-145); Total Bilirubin 0.6 mg/dL (0.15-1.2); Total Protein 4.9 g/dL (6.6-8.7)
[2021-11-07 15:44] LABS: Ferritin 808 ng/mL (15-150); Iron 65 ug/dL (37-145); Percent Saturation 50.3 % (20-50); Total Iron Binding Capacity 129 mcg/dl; Unsaturated Iron Binding 64 ug/dL (112-347)
--- NOTE | 2021-11-07 18:53 | ONC FU_ITS ---
Dr. Rascon Patient Follow-Up Note Patient: Bee Zheng Unit #: [id number]: 1950 Dicatated By: Tab Rascon M.D.Date of Visit:Nov 07, 2021 Onc Med Follow-up/Prog Note Chief Complaint: Bilateral breast cancer. History of Present Illness: This is a 71 year-old woman with bilateral invasive breast cancer, both locally advanced. The right breast was grade 1 infiltrating ductal carcinoma, post treatment stage IIA (ypT1c, ypN2a, M0), ER/ND positive and HER-2/bernadine negative. The left breast cancer was grade 3 infiltrating ductal carcinoma, post treatment stage at least IB (ypT2, ypN2a, M0), ER/ND positive and HER-2/bernadine positive. She had presented with gradually worsening swelling and firmness in her breasts after she had sustained a chest injury in a fall about 9 months ago. Bilateral mammograms on 03/23/2019 were BI-RADS 5, highly suggestive of malignancy. Findings included areas of dense asymmetry in the central right breast measuring 3.5 cm and in the central left breast measuring 4.5 by 3.9 cm. The right breast ultrasound showed an irregular hypoechoic mass at 12:00, middle depth, measuring 3.5 x 2.2 cm. Also noted was eccentric thickening of a lymph node in the right axilla. The left breast ultrasound showed a large amount of shadowing within the central breast mass containing calcifications at 12:00, measuring 4.6 x 3.7 cm. There were small benign-appearing lymph nodes on the left. She underwent bilateral ultrasound-guided biopsies on 04/06/2019. The left breast showed grade 3 infiltrating ductal carcinoma with a minor DCIS component. The breast prognostic profile showed ER positive at 87% and ND positive at 72%. There was overexpression of HER-2/bernadine, 3+ by IHC and amplification ratio by FISH of 2.3 with 7.0 HER-2 copies/cell. The Ki-67 was unfavorable at 22%. The right breast showed grade 2 infiltrating ductal carcinoma. A subsequent prognostic profile on the right breast biopsy showed ER positive at 87% and ND positive at 21%. That tumor was negative for overexpression of HER-2/bernadine, 1+ by IHC and amplification ratio by FISH of 1.0 with 2.4 HER-2 copies/cell. Staging PET/CT on 05/07/2019 showed FDG avid right breast lesion measuring 2.1 cm, SUV 13.7, and a solitary hypermetabolic right axillary lymph node with SUV 5.3, consistent with local metastatic disease. Other right axillary lymph nodes were too small to characterize by PET. The left breast showed 2 nearly contiguous lesions, the more dominant measuring 2.5 x 3.8 cm with SUV 8.3. The more inferior and lateral lesion measured 1.3 x 1.5 cm with SUV 11.7. Left axillary lymph nodes were too small to characterize by PET. There were no areas of uptake to suggest any other metastatic disease. A needle biopsy of the right axillary lymph node on 05/19/2019 showed metastatic carcinoma most consistent with breast primary. Given those findings and with HER-2/bernadine positive disease in the left breast, she was recommended to undergo neoadjuvant chemotherapy with TCH-P. On 06/02/2019 she began cycle 1 of neoadjuvant chemotherapy with TCH-P. She tolerated the treatment without acute toxicity. She subsequently developed pretty severe diarrhea, beginning around a 3 or 4. It lasted for 2 weeks. She continued with cycle 2 on 06/28/2019. That treatment was complicated by a pretty severe skin eruption, and she continued to have diarrhea. With cycle 3 on 07/26/2019 I did opt to omit the docetaxel. With had cycle there was no recurrence of skin eruption, but she continued to have severe diarrhea. With cycle 4, on 08/23/2019, I opted to admit the Perjeta and replace the taxane portion of her chemotherapy with Abraxane. On 08/29/2019 she was admitted to the hospital with severe pancytopenia. She continued to have diarrhea and she also developed significant liver dysfunction. She required transfusion of PRBC and platelets. She had uneventful recovery of her white blood cell count, but she continued to have severe thrombocytopenia at discharge, requiring additional outpatient platelet pheresis. I had seen her for a follow-up visit on 09/20/2019. Given the multiple toxicities she had experienced, I opted not to attempt any further chemotherapy. A restaging PET/CT on 09/24/2019 showed primary right breast carcinoma measuring 1.6 cm with SUV 4.6, significantly improved from the prior study. The solitary right axillary lymph node had resolved. The nearly contiguous left breast lesions were reported to have SUV of 3.1, also representing a significant response to therapy. At her follow-up visit on 10/25/2019 she still had very limited activity, and she also continued to have significant lower extremity edema. At that point her treatment remained on hold. Her medical history is otherwise significant in that she had presented in 2014 anemia, severe enough to require transfusion. This was ultimately determined to be due to endometrial cancer, for which she underwent hysterectomy/bilateral salpingo-oophorectomy. Those records are not available at this time. She indicates that there was no lymph node involvement. She apparently did receive postoperative radiation with HDR implant. There has been no evidence of recurrence of the endometrial cancer. At her follow-up visit on 11/01/2019 she had recovered sufficiently to resume treatment with single agent Herceptin at a 3-week dosing schedule. She tolerated it without significant toxicity. On 11/17/2019 she underwent bilateral modified radical mastectomies. Pathology on the left breast showed grade 2 invasive ductal carcinoma, multifocal, with the largest focus measuring 2.8 cm in maximum diameter. There was invasion into the dermis, but without skin ulceration. There was a small component of nuclear grade 1 ductal carcinoma in situ. The margins were negative. There was involvement in 6 of 8 axillary lymph nodes with the largest metastatic deposit measuring 6 mm. Pathologic staging was ypT2, ypN2a. The right breast showed grade 1 invasive ductal carcinoma measuring 1.3 cm in maximum diameter. There was an extensive component of nuclear grade 2 intraductal cancer, estimated at 13 mm. The margins were uninvolved. There was involvement in 8 of 8 axillary lymph nodes with the largest metastatic deposit measuring 5 mm. Pathologic staging was ypT1c, ypN2a. She had no complications with the surgery. She was able to continue single agent Herceptin at the 3- week dosing schedue. As of 12/13/2019 she had received her 3rd cycle. During that time she did show gradual improvement in her neuropathy and performance status. As of her visit on 01/03/2020 I opted to change her systemic therapy to Kadcyla at 3.6 mg/kg by IV infusion. At that time, she also began adjuvant hormonal therapy with anastrozole 1 mg daily. She tolerated the initial infusion of Kadcyla with no adverse effects. She continued with cycle 2 on 01/24/2020, and she began chest wall radiation on 01/25/2020. Her 3rd cycle of Kadcyla was delayed due to neutropenia. She went on to complete radiation on 03/06/2020, 5040 cGy to each chest wall. She had then presented with increased shortness of breath. Her CT pulmonary angiogram on 04/09/2020 showed no evidence for pulmonary embolus. She was small right pleural and pericardial effusions, which were new. The most significant finding was fibrotic appearing airspace infiltrates in the mid and upper lungs anteriorly, also new. The findings were felt to be most consistent with radiation pneumonitis. She began on steroid therapy. As of her follow-up visit on 05/01/2020, she was showing clinical improvement, and her prednisone dosage was decreased to 10 mg daily. Her restaging CT scans on 05/31/2020 showed moderate chronic emphysematous changes, with no acute pulmonary infiltrates. 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 There was also mild but stable dilatation of the main pulmonary arteries. There was no evidence of metastatic disease in the chest, abdomen, or pelvis. With those findings, she continued adjuvant hormonal therapy with anastrozole. I did not attempt to restart Kadcyla or Herceptin. During follow-up her prednisone dosage was gradually tapered. At her scheduled visit on 08/13/2020 she reported new onset of rectal bleeding. Colonoscopy by Dr. Pompa was unrevealing. As of her follow-up visit on 03/07/2021 she continued to have somewhat marginal performance status. She was still having some diarrhea and some neuropathy symptoms, but there was no evidence of recurrence of her breast cancer. She continued adjuvant hormonal therapy with anastrozole 1 mg daily. Her other medical illnesses include hypertension and hypothyroidism. She has a history of smoking 1-2 packs of cigarettes daily for 50 years. She quit smoking in 2014. She has alcohol use of at least a 6-pack of beer daily. INTERIM HISTORY: On 05/02/2021 she was admitted to the hospital with extensive bilateral pulmonary emboli. There was associated severe right heart strain, and she was treated with TPA followed by Lovenox. Her further clinical course was complicated by acute GI bleeding, for which she underwent placement of IVC filter. A repeat colonoscopy on 05/13/2021 showed a couple of tiny sessile polyps in the mid transverse colon. There is moderate diffuse inflammation involving the entire colon. Biopsy showed severe chronic active colitis with cryptitis and crypt abscesses. A splenic flexure polyp was noted to be an inflammatory polyp. On 05/16/2021 she was discharged home on anticoagulation with apixaban 5 mg twice daily. During subsequent follow-up with Dr. Duarte she was started on steroid therapy for the colitis with subsequent addition of mesalamine. At her follow-up visit on 07/09/2021 she had no obvious recurrence of breast cancer, which she was having more swelling and more shortness of breath. Her repeat echocardiogram on 08/02/2021 showed normal left ventricular systolic function with estimated ejection fraction 55 to 60%. There was grade 1 diastolic dysfunction. There was no pericardial effusion. In the absence of any evidence of recurrence of the breast cancer, she continued adjuvant hormonal therapy with anastrozole 1 mg daily. As of her follow-up visit on 09/26/2021 she was still very weak generally. She continued to have significant lower extremity edema. At that point there was further decline in her hemoglobin to 9.3 g. With her transferrin saturation was low at 5.8%, I did opt to give her parenteral iron replacement with 2 infusions of Injectafer. On 10/21/2020 when she had presented to the emergency room with worsening lower extremity edema. At that point she had developed blisters, and she was admitted to the hospital. Her venous Doppler study showed no evidence of deep vein thrombosis. She required 1 unit PRBC transfusion, and she was given albumin infusions to assist with her diuresis. Due to her overall poor condition, she was felt to be in need of senior living placement, and she was transferred to [facility] at discharge. She is seen for a follow-up visit. She has had significant improvement in the lower extremity swelling since her last visit, she is still very weak generally, and her activity is very limited. ECOG score is 3. Appetite is poor. She complains that she has no taste. She does not have fever or night sweats. After transferring to the senior living, she required antibiotic therapy for pneumonia. Since then her cough has improved and her breathing also is better. She is not having chest pain. She does complain of having nausea. She has been having loose stools, but that has improved. She has not recently been aware of any blood in the stool. She has frequent urination. She has ongoing problems with neuropathy in the lower extremities, including weakness and neuropathy pain. Medications: Anastrozole 1 Tablet (of 1 mg) Oral daily, Apixaban 1 Tablet (of 5 mg) Oral b.i.d., Calcium + D3 1 Tablet Oral daily, Furosemide (40 mg) Tablet Oral Take as Directed, Imodium A-D 2 Tablet (of 2 mg) Oral b.i.d. PRN, Lasix 1 Tablet (of 40 mg) Oral every am, Levothyroxine Sodium 1 (112 mcg) Tablet Oral daily, Mesalamine (1.2 g) Tablet, enteric coated Oral daily, Potassium Chloride ER 1 Tablet (of 10 meq) Tablet, controlled release Oral daily, Prochlorperazine Maleate 1 Tablet (of 10 mg) Oral q 4 hours PRN Allergies: Levaquin Vital Signs: Performed on Nov 07, 2021 15:51 Height - 66.00 in Weight - 144.6 lbs (LOW) BSA - 1.74 sq.m BMI - 23.34 Temperature - 97.7 F (LOW) Pulse - 99 /min Respiration - 18 /min BP - 73/51 mm(hg) (LOW) Pain - 5 Fatigue - 8 Physical Examination: Constitutional - She appears very weak, Eyes - Sclerae nonicteric. Conjunctivae clear, ENMT - Mouth is dry. There are no lesions noted in the oral cavity, Hematologic/Lymphatic - No cervical or clavicular adenopathy, Respiratory - Lungs sound clear, Cardiovascular - Heart rhythm is irregular. There is no murmur, gallop, or rub noted, Breasts - There is an area of nodularity overlying the lower aspect of the sternum. There are no chest wall lesions noted. There is no axillary adenopathy, Abdomen - Soft. There is mild tenderness in the right lower quadrant. Liver and spleen are not enlarged. There is no abdominal mass or ascites noted and there is no inguinal adenopathy, Extremities - There are mild venous stasis changes bilaterally. There is now just mild lower extremity edema. She has extensive purpura, Integumentary - There is a skin ulceration on the right heel, Neurologic - She has weakness in both legs. There are no focal neurologic deficits noted. Lab/Imaging: Test performed on Nov 07, 2021 14:25 Ferritin 808 ng/mL Iron 65 mcg/dL Sodium 139 mmol/L Iron Binding Capacity (TIBC) 129 mcg/dl Potassium 3.3 mmol/L % Iron Saturation 50.3 % Chloride 98 mmol/L CO2 31 mmol/L UIBC 64 mcg/dL Anion Gap 13.3 BUN 12 mg/dL Creatinine 1.0 mg/dL Cr Clearance (Est) 54.98 mL/min eGFR 55.0 mL/min Glucose 114 mg/dL Osmolality - Calculated 289 mOsm/kg Calcium 7.6 mg/dL Protein, Total 4.9 g/dL Albumin 2.5 g/dL Globulin 2.4 g/dL Bilirubin, Total 0.6 mg/dL ALT (SGPT) 11 U/L AST (SGOT) 24 U/L Alkaline Phosphatase 348 IU/L WBC 7.4 10 3/uL RBC 3.15 10 6/uL HGB 9.9 g/dL HCT 32.1 % MCV 101.9 fl MCH 31.4 pg MCHC 30.8 g/dL RDW 20.8 % Platelet Count 121 10 3/cmm MPV 11.2 fL Neutrophils 5.74 10 3/uL Lymphocytes 0.6 10 3/uL Monocytes 0.8 10 3/uL Eosinophils 0.1 10 3/uL Basophils 0.1 10 3/uL Neutrophil % 77.8 % Lymphocyte % 8.7 % Monocyte % 10.7 % Eosinophil % 1.1 % Basophils % 0.8 % NRBC % 0 % Problem List: 1. Bilateral invasive breast cancer, both locally advanced. The right breast cancer was grade 1 infiltrating ductal carcinoma, post treatment stage IIA (ypT1c, ypN2a, M0), ER/ND positive and HER-2/bernadine negative. The left breast cancer was grade 3 infiltrating ductal carcinoma, post treatment stage at least IB (ypT2, ypN2a, M0), ER/ND positive and HER-2/bernadine positive. The chemotherapy was stopped after 4 cycles due to toxicity. She underwent modified radical mastectomy bilaterally on 11/17/2019. 3. She has residual chemotherapy related neuropathy. 4. She had persistent diarrhea following the chemotherapy, and she ultimately was diagnosed with ulcerative colitis. 5. She was hospitalized with extensive bilateral pulmonary emboli in April 2021. She remains on anticoagulation with apixaban. 6. She had acute GI bleed following treatment with TPA, requiring placement of inferior vena cava filter. 7. Hypertension. 8. Hypothyroidism. 9. She has a history of endometrial cancer for which she underwent hysterectomy/bilateral salpingo-oophorectomy and postoperative HDR implant radiation in 2014. Problems Addressed with this Encounter and Plan: 1. Patient with bilateral invasive breast cancer, both locally advanced. The right breast cancer was grade 1 infiltrating ductal carcinoma, post treatment stage IIA (ypT1c, ypN2a, M0), ER/ND positive and HER-2/bernadine negative. The left breast cancer was grade 3 infiltrating ductal carcinoma, post treatment stage at least IB (ypT2, ypN2a, M0), ER/ND positive and HER-2/bernadine positive. She underwent bilateral ultrasound directed breast biopsies on 04/06/2019, and she underwent ultrasound directed needle biopsy of a right axillary lymph node on 05/19/2019. Her subsequent breast cancer treatment included: 1. Neoadjuvant chemotherapy with TCH-P for 4 cycles 08/23/2019, stopped due to multiple toxicities, including peripheral neuropathy. 2. Herceptin monotherapy beginning 11/01/2019. 3. Modified radical mastectomy bilaterally on 11/17/2019. 4. Adjuvant hormonal therapy with anastrozole 1 mg daily beginning 01/03/2020. 5. Kadcyla for 2 cycles, on 01/03/2020 and 01/24/2020, stopped due to toxicity. 6. Prophylactic chest wall radiation, completed on 03/06/2020 to 5040 cGy to each chest wall. During followup she had continues adjuvant hormonal therapy with anastrozole 1 mg daily, though she also continued to have poor performance status associated with severe neuropathy in the lower extremities. Since her visit in September there has been further decline in her overall condition, to the point that she has now been confined to the senior living. Her current laboratory studies show significant increase in her alkaline phosphatase, which is very worrisome for metastatic involvement in liver and/or bone. As such, she will be scheduled now for restaging PET/CT. She will have further evaluation as indicated. 2. She has treatment related peripheral neuropathy with associated disability. She continues symptomatic management with gabapentin. 3. In April 2021 she was hospitalized with extensive bilateral pulmonary emboli. She had associated right heart strain, and she did receive TPA. She remains on anticoagulation with apixaban. Her repeat echocardiogram showed normal left ventricular function and just mild (grade 1) diastolic dysfunction. However, her NT-pro-[employer] level was significantly elevated at 3116 pg/mL, consistent with congestive heart failure. She has been on diuretic therapy with furosemide, though management has been problematic due to borderline renal function and to relatively low blood pressure. There has now been some improvement in her lower extremity edema following recent hospitalization, but her overall condition remains poor. Signed By: Tab Rascon M.D. <<Signature on File>>
== END 2021-11-07 14:02 | disposition home or self-care (01) ==
LOC: ONCMED 14:05
PROVIDERS: PCP Nurse Practitioner Family; Visit Provider Internal Medicine Medical Oncology
DX: C50.912 Malignant neoplasm of unspecified site of left female breast (principal); C50.911 Malignant neoplasm of unspecified site of right female breast; Z90.13 Acquired absence of bilateral breasts and nipples; G62.9 Polyneuropathy, unspecified; R19.7 Diarrhea, unspecified; Z79.01 Long term (current) use of anticoagulants; K51.90 Ulcerative colitis, unspecified, without complications; I10 Essential (primary) hypertension; E03.9 Hypothyroidism, unspecified; Z85.42 Personal history of malignant neoplasm of other parts of uterus; Z90.710 Acquired absence of both cervix and uterus; Z90.721 Acquired absence of ovaries, unilateral; Z79.811 Long term (current) use of aromatase inhibitors
CPT/HCPCS: 36591; 80053; 82728; 83540; 83550; 85025; 99215

== ENCOUNTER 2022-01-02 09:31 | Outpatient (CLI) | payer MEDICARE, OTHER, SELFPAY ==
[2022-01-02 11:42] LABS: Basophils # 0.1 10^3/uL (0.0-0.1); Basophils % 0.8 %; Eosinophils % 0.3 %; Hemoglobin 11.3 g/dL (11.5-15.3); Lymphocytes # 0.5 10^3/uL (0.8-4.8); Lymphocytes % 6.8 %; Mean Corpuscular HGB Conc 31.4 g/dL (30.0-36.0); Mean Corpuscular Hemoglobin 34.3 pg (28.0-34.0); Mean Corpuscular Volume 109.4 fl (81-99); Mean Platelet Volume 10.7 fL (7.4-10.4); Monocytes # 0.8 10^3/uL (0.2-0.9); Monocytes % 9.8 %; Neutrophils # 6.23 10^3/uL (1.8-7.7); Neutrophils % 81.5 %; Nucleated Red Blood Cells % 0 %; Platelet Count 142 10^3/cmm (130-400); Red Blood Count 3.29 10^6/uL (4.1-5.3); Red Cell Distribution Width 16.5 % (12.1-15.1); White Blood Count 7.6 10^3/uL (4.0-10.0)
[2022-01-02 12:06] LABS: Alanine Aminotransferase 6 U/L (0-33); Albumin Level 2.3 g/dL (3.5-5.2); Alkaline Phosphatase 170 IU/L (35-105); Anion Gap 13.9 (5-19); Aspartate Amino Transferase 18 U/L (0-32); Blood Urea Nitrogen 16 mg/dL (8-23); Calcium 8.2 mg/dL (8.5-10.5); Carbon Dioxide 26 mmol/L (22-29); Chloride 99 mmol/L (98-107); Globulin 3.6 g/dL (1.3-4.6); Glomerular Filtration Rate 49.2 mL/min (90-130); Glucose 93 mg/dL (65-115); NT Pro B Type Natriuretic Pept 3296 pg/mL (0-125); Osmolality Calculated 281 mOsm/kg (285-295); Potassium 3.9 mmol/L (3.5-5.1); Sodium 135 mmol/L (136-145); Total Bilirubin 0.8 mg/dL (0.15-1.2); Total Protein 5.9 g/dL (6.6-8.7)
[2022-01-02 12:10] LABS: Slide Review Slide Review Perform
--- NOTE | 2022-01-05 12:41 | ONC FU_ITS ---
Dr. Rascon Patient Follow-Up Note Patient: Bee Zheng Unit #: [id number]: 1950 Dicatated By: Tab Rascon M.D.Date of Visit:Jan 02, 2022 Onc Med Follow-up/Prog Note Chief Complaint: Bilateral breast cancer. History of Present Illness: This is a 71 year-old woman with bilateral invasive breast cancer, both locally advanced. The right breast was grade 1 infiltrating ductal carcinoma, post treatment stage IIA (ypT1c, ypN2a, M0), ER/FL positive and HER-2/bernadine negative. The left breast cancer was grade 3 infiltrating ductal carcinoma, post treatment stage at least IB (ypT2, ypN2a, M0), ER/FL positive and HER-2/bernadine positive. She had presented with gradually worsening swelling and firmness in her breasts after she had sustained a chest injury in a fall about 9 months ago. Bilateral mammograms on 03/23/2019 were BI-RADS 5, highly suggestive of malignancy. Findings included areas of dense asymmetry in the central right breast measuring 3.5 cm and in the central left breast measuring 4.5 by 3.9 cm. The right breast ultrasound showed an irregular hypoechoic mass at 12:00, middle depth, measuring 3.5 x 2.2 cm. Also noted was eccentric thickening of a lymph node in the right axilla. The left breast ultrasound showed a large amount of shadowing within the central breast mass containing calcifications at 12:00, measuring 4.6 x 3.7 cm. There were small benign-appearing lymph nodes on the left. She underwent bilateral ultrasound-guided biopsies on 04/06/2019. The left breast showed grade 3 infiltrating ductal carcinoma with a minor DCIS component. The breast prognostic profile showed ER positive at 87% and FL positive at 72%. There was overexpression of HER-2/bernadine, 3+ by IHC and amplification ratio by FISH of 2.3 with 7.0 HER-2 copies/cell. The Ki-67 was unfavorable at 22%. The right breast showed grade 2 infiltrating ductal carcinoma. A subsequent prognostic profile on the right breast biopsy showed ER positive at 87% and FL positive at 21%. That tumor was negative for overexpression of HER-2/bernadine, 1+ by IHC and amplification ratio by FISH of 1.0 with 2.4 HER-2 copies/cell. Staging PET/CT on 05/07/2019 showed FDG avid right breast lesion measuring 2.1 cm, SUV 13.7, and a solitary hypermetabolic right axillary lymph node with SUV 5.3, consistent with local metastatic disease. Other right axillary lymph nodes were too small to characterize by PET. The left breast showed 2 nearly contiguous lesions, the more dominant measuring 2.5 x 3.8 cm with SUV 8.3. The more inferior and lateral lesion measured 1.3 x 1.5 cm with SUV 11.7. Left axillary lymph nodes were too small to characterize by PET. There were no areas of uptake to suggest any other metastatic disease. A needle biopsy of the right axillary lymph node on 05/19/2019 showed metastatic carcinoma most consistent with breast primary. Given those findings and with HER-2/bernadine positive disease in the left breast, she was recommended to undergo neoadjuvant chemotherapy with TCH-P. On 06/02/2019 she began cycle 1 of neoadjuvant chemotherapy with TCH-P. She tolerated the treatment without acute toxicity. She subsequently developed pretty severe diarrhea, beginning around a 3 or 4. It lasted for 2 weeks. She continued with cycle 2 on 06/28/2019. That treatment was complicated by a pretty severe skin eruption, and she continued to have diarrhea. With cycle 3 on 07/26/2019 I did opt to omit the docetaxel. With had cycle there was no recurrence of skin eruption, but she continued to have severe diarrhea. With cycle 4, on 08/23/2019, I opted to admit the Perjeta and replace the taxane portion of her chemotherapy with Abraxane. On 08/29/2019 she was admitted to the hospital with severe pancytopenia. She continued to have diarrhea and she also developed significant liver dysfunction. She required transfusion of PRBC and platelets. She had uneventful recovery of her white blood cell count, but she continued to have severe thrombocytopenia at discharge, requiring additional outpatient platelet pheresis. I had seen her for a follow-up visit on 09/20/2019. Given the multiple toxicities she had experienced, I opted not to attempt any further chemotherapy. A restaging PET/CT on 09/24/2019 showed primary right breast carcinoma measuring 1.6 cm with SUV 4.6, significantly improved from the prior study. The solitary right axillary lymph node had resolved. The nearly contiguous left breast lesions were reported to have SUV of 3.1, also representing a significant response to therapy. At her follow-up visit on 10/25/2019 she still had very limited activity, and she also continued to have significant lower extremity edema. At that point her treatment remained on hold. Her medical history is otherwise significant in that she had presented in 2014 anemia, severe enough to require transfusion. This was ultimately determined to be due to endometrial cancer, for which she underwent hysterectomy/bilateral salpingo-oophorectomy. Those records are not available at this time. She indicates that there was no lymph node involvement. She apparently did receive postoperative radiation with HDR implant. There has been no evidence of recurrence of the endometrial cancer. At her follow-up visit on 11/01/2019 she had recovered sufficiently to resume treatment with single agent Herceptin at a 3-week dosing schedule. She tolerated it without significant toxicity. On 11/17/2019 she underwent bilateral modified radical mastectomies. Pathology on the left breast showed grade 2 invasive ductal carcinoma, multifocal, with the largest focus measuring 2.8 cm in maximum diameter. There was invasion into the dermis, but without skin ulceration. There was a small component of nuclear grade 1 ductal carcinoma in situ. The margins were negative. There was involvement in 6 of 8 axillary lymph nodes with the largest metastatic deposit measuring 6 mm. Pathologic staging was ypT2, ypN2a. The right breast showed grade 1 invasive ductal carcinoma measuring 1.3 cm in maximum diameter. There was an extensive component of nuclear grade 2 intraductal cancer, estimated at 13 mm. The margins were uninvolved. There was involvement in 8 of 8 axillary lymph nodes with the largest metastatic deposit measuring 5 mm. Pathologic staging was ypT1c, ypN2a. She had no complications with the surgery. She was able to continue single agent Herceptin at the 3- week dosing schedue. As of 12/13/2019 she had received her 3rd cycle. During that time she did show gradual improvement in her neuropathy and performance status. As of her visit on 01/03/2020 I opted to change her systemic therapy to Kadcyla at 3.6 mg/kg by IV infusion. At that time, she also began adjuvant hormonal therapy with anastrozole 1 mg daily. She tolerated the initial infusion of Kadcyla with no adverse effects. She continued with cycle 2 on 01/24/2020, and she began chest wall radiation on 01/25/2020. Her 3rd cycle of Kadcyla was delayed due to neutropenia. She went on to complete radiation on 03/06/2020, 5040 cGy to each chest wall. She had then presented with increased shortness of breath. Her CT pulmonary angiogram on 04/09/2020 showed no evidence for pulmonary embolus. She was small right pleural and pericardial effusions, which were new. The most significant finding was fibrotic appearing airspace infiltrates in the mid and upper lungs anteriorly, also new. The findings were felt to be most consistent with radiation pneumonitis. She began on steroid therapy. As of her follow-up visit on 05/01/2020, she was showing clinical improvement, and her prednisone dosage was decreased to 10 mg daily. Her restaging CT scans on 05/31/2020 showed moderate chronic emphysematous changes, with no acute pulmonary infiltrates. 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 There was also mild but stable dilatation of the main pulmonary arteries. There was no evidence of metastatic disease in the chest, abdomen, or pelvis. With those findings, she continued adjuvant hormonal therapy with anastrozole. I did not attempt to restart Kadcyla or Herceptin. During follow-up her prednisone dosage was gradually tapered. At her scheduled visit on 08/13/2020 she reported new onset of rectal bleeding. Colonoscopy by Dr. Pompa was unrevealing. As of her follow-up visit on 03/07/2021 she continued to have somewhat marginal performance status. She was still having some diarrhea and some neuropathy symptoms, but there was no evidence of recurrence of her breast cancer. She continued adjuvant hormonal therapy with anastrozole 1 mg daily. Her other medical illnesses include hypertension and hypothyroidism. She has a history of smoking 1-2 packs of cigarettes daily for 50 years. She quit smoking in 2014. She has alcohol use of at least a 6-pack of beer daily. INTERIM HISTORY: On 05/02/2021 she was admitted to the hospital with extensive bilateral pulmonary emboli. There was associated severe right heart strain, and she was treated with TPA followed by Lovenox. Her further clinical course was complicated by acute GI bleeding, for which she underwent placement of IVC filter. A repeat colonoscopy on 05/13/2021 showed a couple of tiny sessile polyps in the mid transverse colon. There is moderate diffuse inflammation involving the entire colon. Biopsy showed severe chronic active colitis with cryptitis and crypt abscesses. A splenic flexure polyp was noted to be an inflammatory polyp. On 05/16/2021 she was discharged home on anticoagulation with apixaban 5 mg twice daily. During subsequent follow-up with Dr. Duarte she was started on steroid therapy for the colitis with subsequent addition of mesalamine. At her follow-up visit on 07/09/2021 she had no obvious recurrence of breast cancer, which she was having more swelling and more shortness of breath. Her repeat echocardiogram on 08/02/2021 showed normal left ventricular systolic function with estimated ejection fraction 55 to 60%. There was grade 1 diastolic dysfunction. There was no pericardial effusion. In the absence of any evidence of recurrence of the breast cancer, she continued adjuvant hormonal therapy with anastrozole 1 mg daily. As of her follow-up visit on 09/26/2021 she was still very weak generally. She continued to have significant lower extremity edema. At that point there was further decline in her hemoglobin to 9.3 g. With her transferrin saturation was low at 5.8%, I did opt to give her parenteral iron replacement with 2 infusions of Injectafer. On 10/21/2021 she had presented to the emergency room with worsening lower extremity edema. At that point she had developed blisters, and she was admitted to the hospital. Her venous Doppler study showed no evidence of deep vein thrombosis. She required 1 unit PRBC transfusion, and she was given albumin infusions to assist with her diuresis. Due to her overall poor condition, she was felt to be in need of fci placement, and she was transferred to [facility] at discharge. As of her follow-up visit on 11/07/2021 she was still very weak generally. Alkaline phosphatase was significantly elevated, worrisome for either liver or bony metastatic disease. Restaging PET/CT on 12/21/2021 showed left pleural effusion and extensive abdominal ascites. There was pulmonary enlargement indicative of pulmonary hypertension. A right external iliac lymph node was noted to be FDG positive and possibly reactive, though malignancy was not excluded. There were no other areas of abnormal uptake. She is seen for a follow-up visit. She has still been very weak generally. She is getting physical therapy, she has only minimal ambulation. ECOG score is 3. Her appetite has not been very good, but lately she has been eating a little better. She has not had fever. She occasionally has sweating, but not much. She says she is mostly freezing. Recently she has had a lot of fluid coming out on a couple of occasions. She has continued to have bad diarrhea. She has ongoing problems with swelling in her legs and feet. She has just occasional dry cough. Her breathing has been pretty good on oxygen. She has not been having chest pain. She has just occasional nausea and she has pain in the abdominal area. She has been using Imodium for the diarrhea. She has some urgency with urination and occasional incontinence. She has pain in both legs. She occasionally has headache and she occasionally has dizziness. She still has numbness in her hands and feet. Medications: Anastrozole 1 Tablet (of 1 mg) Oral daily, Calcium + D3 1 Tablet Oral daily, Furosemide (40 mg) Tablet Oral Take as Directed, Gabapentin 1 Capsule (of 300 mg) Oral t.i.d., Levothyroxine Sodium 1 (112 mcg) Tablet Oral daily, Metoprolol Succinate ER 0.5 Tablet (of 25 mg) Tablet SR 24 HR Oral daily, Pantoprazole Sodium 1 Tablet (of 40 mg) Tablet, enteric coated Oral daily, Potassium Chloride ER 1 Tablet (of 10 meq) Tablet, controlled release Oral daily, Sildenafil Citrate 1 Tablet (of 20 mg) Oral t.i.d. Allergies: Levaquin Vital Signs: Performed on Jan 02, 2022 10:39 Height - 66.00 in Weight - 167.8 lbs (HIGH) BSA - 1.86 sq.m BMI - 27.08 Temperature - 98.7 F Pulse - 98 /min Respiration - 16 /min BP - 99/65 mm(hg) O2 Sat - 96 % Pain - 0 Fatigue - 5 Physical Examination: Constitutional - She appears generally weak, Eyes - Sclerae nonicteric. Conjunctivae clear, ENMT - No lesions noted in the oral cavity, Hematologic/Lymphatic - No cervical or clavicular adenopathy, Respiratory - Lungs sound clear with some decrease in breath sounds on the left, Cardiovascular - Heart rhythm appears regular. There is a widely split S1. There is no murmur, gallop, or rub noted, Breasts - There are no chest wall lesions noted. There is no axillary adenopathy, Abdomen - Mildly distended but soft. Liver and spleen are not enlarged. There is no abdominal mass noted. I do not see any obvious ascites. There is no inguinal adenopathy, Extremities - There are mild venous stasis changes bilaterally. There is mild lower extremity edema, mainly on the left, Neurologic - She has weakness in both legs. There are no focal neurologic deficits noted. Problem List: 1. Bilateral invasive breast cancer, both locally advanced. The right breast cancer was grade 1 infiltrating ductal carcinoma, post treatment stage IIA (ypT1c, ypN2a, M0), ER/FL positive and HER-2/bernadine negative. The left breast cancer was grade 3 infiltrating ductal carcinoma, post treatment stage at least IB (ypT2, ypN2a, M0), ER/FL positive and HER-2/bernadine positive. The chemotherapy was stopped after 4 cycles due to toxicity. She underwent modified radical mastectomy bilaterally on 11/17/2019. 3. She has residual chemotherapy related neuropathy. 4. She had persistent diarrhea following the chemotherapy, and she ultimately was diagnosed with ulcerative colitis. 5. She was hospitalized with extensive bilateral pulmonary emboli in April 2021. She remains on anticoagulation with apixaban. 6. She had acute GI bleed following treatment with TPA, requiring placement of inferior vena cava filter. 7. Hypertension. 8. Hypothyroidism. 9. She has a history of endometrial cancer for which she underwent hysterectomy/bilateral salpingo-oophorectomy and postoperative HDR implant radiation in 2014. Problems Addressed with this Encounter and Plan: 1. Patient with bilateral invasive breast cancer, both locally advanced. The right breast cancer was grade 1 infiltrating ductal carcinoma, post treatment stage IIA (ypT1c, ypN2a, M0), ER/FL positive and HER-2/bernadine negative. The left breast cancer was grade 3 infiltrating ductal carcinoma, post treatment stage at least IB (ypT2, ypN2a, M0), ER/FL positive and HER-2/bernadine positive. She underwent bilateral ultrasound directed breast biopsies on 04/06/2019, and she underwent ultrasound directed needle biopsy of a right axillary lymph node on 05/19/2019. Her subsequent breast cancer treatment included: 1. Neoadjuvant chemotherapy with TCH-P for 4 cycles 08/23/2019, stopped due to multiple toxicities, including peripheral neuropathy. 2. Herceptin monotherapy beginning 11/01/2019. 3. Modified radical mastectomy bilaterally on 11/17/2019. 4. Adjuvant hormonal therapy with anastrozole 1 mg daily beginning 01/03/2020. 5. Kadcyla for 2 cycles, on 01/03/2020 and 01/24/2020, stopped due to toxicity. 6. Prophylactic chest wall radiation, completed on 03/06/2020 to 5040 cGy to each chest wall. During followup she had continues adjuvant hormonal therapy with anastrozole 1 mg daily, though she also continued to have poor performance status associated with severe neuropathy in the lower extremities. As have her follow-up visit in October 2021 there have been a significant increase in her alkaline phosphatase. Her restaging PET/CT on 12/21/2021 showed an FDG positive right external iliac lymph node, felt to be most likely reactive. There were no other areas of abnormal uptake on that study, but there was left pleural effusion and there was significant ascites. Also noted was pulmonary artery enlargement consistent with pulmonary hypertension. At this point she will have additional laboratory studies to include CBC, comprehensive metabolic profile, and TSH level. I also want to check a B-FRONT OFFICE REPRESENTATIVE level. I will review the PET/CT with the radiologist, and I will then plan for thoracentesis and/or paracentesis as indicated. 2. She has treatment related peripheral neuropathy with associated disability. She continues symptomatic management with gabapentin. 3. In April 2021 she was hospitalized with extensive bilateral pulmonary emboli. She had associated right heart strain, and she did receive TPA. She remains on anticoagulation with apixaban. Her repeat echocardiogram showed normal left ventricular function and just mild (grade 1) diastolic dysfunction. However, her NT-pro-B FRONT OFFICE REPRESENTATIVE level was significantly elevated at 3116 pg/mL, consistent with congestive heart failure. She has been on diuretic therapy with furosemide, though management has been problematic due to borderline renal function and to relatively low blood pressure. There has been some improvement in her lower extremity edema following the hospitalization in September. She apparently was taken off anticoagulation at discharge, and I will need to get her back on treatment with either apixaban or rivaroxaban. Signed By: Tab Rascon M.D. <<Signature on File>>
== END 2022-01-02 09:32 | disposition home or self-care (01) ==
PROVIDERS: PCP Nurse Practitioner Family; Visit Provider Internal Medicine Medical Oncology
DX: C50.912 Malignant neoplasm of unspecified site of left female breast (principal); C50.911 Malignant neoplasm of unspecified site of right female breast; Z17.0 Estrogen receptor positive status [ER+]; I10 Essential (primary) hypertension; J84.10 Pulmonary fibrosis, unspecified; E03.9 Hypothyroidism, unspecified; G62.9 Polyneuropathy, unspecified; I27.20 Pulmonary hypertension, unspecified; I50.9 Heart failure, unspecified; R60.9 Edema, unspecified; Z79.899 Other long term (current) drug therapy; Z92.21 Personal history of antineoplastic chemotherapy; Z85.89 Personal history of malignant neoplasm of other organs and systems; Z87.891 Personal history of nicotine dependence
CPT/HCPCS: 36591; 80053; 83880; 84443; 85025; 99214

== ENCOUNTER → 2022-01-07 14:17 | Outpatient (BNVA) | payer MEDICARE, OTHER, SELFPAY | PROVIDERS: PCP Nurse Practitioner Family; Visit Provider Internal Medicine Critical Care Medicine | DX: I27.20 Pulmonary hypertension, unspecified (principal); I26.99 Other pulmonary embolism without acute cor pulmonale; I50.810 Right heart failure, unspecified; Z87.891 Personal history of nicotine dependence; Z85.3 Personal history of malignant neoplasm of breast; I10 Essential (primary) hypertension; E03.9 Hypothyroidism, unspecified | CPT/HCPCS: 99214 ==

== ENCOUNTER 2022-02-05 21:12 | Outpatient (CLI) | payer MEDICARE, OTHER, SELFPAY | END 2022-02-05 21:13 | disposition home or self-care (01) | PROVIDERS: PCP Nurse Practitioner Family; Visit Provider Internal Medicine Medical Oncology | DX: Z11.9 Encounter for screening for infectious and parasitic diseases, unspecified (principal) | CPT/HCPCS: 87177; 87209 ==

== ENCOUNTER → 2022-02-25 15:29 | Outpatient (BNVA) | payer MEDICARE, OTHER, SELFPAY | PROVIDERS: PCP Nurse Practitioner Family; Visit Provider Internal Medicine Critical Care Medicine | DX: I27.20 Pulmonary hypertension, unspecified (principal); I26.99 Other pulmonary embolism without acute cor pulmonale; I50.810 Right heart failure, unspecified; Z87.891 Personal history of nicotine dependence; I10 Essential (primary) hypertension | CPT/HCPCS: 36415; 71046; 80048; 99214 ==

== ENCOUNTER 2022-03-13 15:21 | Oncology outpatient (recurring) (ONCR) | payer MEDICARE, OTHER, SELFPAY ==
[2022-03-13 16:56] LABS: Basophils # 0.1 10^3/uL (0.0-0.1); Basophils % 1.5 %; Eosinophils % 0.7 %; Hematocrit 30.8 % (37.0-47.0); Hemoglobin 9.8 g/dL (11.5-15.3); Lymphocytes # 0.6 10^3/uL (0.8-4.8); Lymphocytes % 11.8 %; Mean Corpuscular HGB Conc 31.8 g/dL (30.0-36.0); Mean Corpuscular Hemoglobin 35.3 pg (28.0-34.0); Mean Corpuscular Volume 110.8 fl (81-99); Monocytes # 0.5 10^3/uL (0.2-0.9); Monocytes % 8.5 %; Neutrophils # 4.18 10^3/uL (1.8-7.7); Neutrophils % 76.9 %; Nucleated Red Blood Cells % 0 %; Platelet Count 151 10^3/cmm (130-400); Red Blood Count 2.78 10^6/uL (4.1-5.3); Red Cell Distribution Width 15.3 % (12.1-15.1); White Blood Count 5.4 10^3/uL (4.0-10.0)
[2022-03-13 17:15] LABS: Alanine Aminotransferase 8 U/L (0-33); Albumin Level 1.9 g/dL (3.5-5.2); Alkaline Phosphatase 148 IU/L (35-105); Anion Gap 11.1 (5-19); Aspartate Amino Transferase 16 U/L (0-32); Blood Urea Nitrogen 16 mg/dL (8-23); Calcium 7.5 mg/dL (8.5-10.5); Carbon Dioxide 25 mmol/L (22-29); Chloride 102 mmol/L (98-107); Globulin 3.8 g/dL (1.3-4.6); Glomerular Filtration Rate 62.1 mL/min (90-130); Glucose 95 mg/dL (65-115); Magnesium 1.2 mg/dL (1.7-2.3); Osmolality Calculated 281 mOsm/kg (285-295); Potassium 3.1 mmol/L (3.5-5.1); Sodium 135 mmol/L (136-145); Total Bilirubin 0.5 mg/dL (0.15-1.2); Total Protein 5.7 g/dL (6.6-8.7)
== END 2022-03-19 23:59 | disposition home or self-care (01) ==
PROVIDERS: PCP Nurse Practitioner Family; Visit Provider Internal Medicine Medical Oncology
DX: C50.811 Malignant neoplasm of overlapping sites of right female breast (principal); C50.812 Malignant neoplasm of overlapping sites of left female breast; Z17.0 Estrogen receptor positive status [ER+]; Z90.13 Acquired absence of bilateral breasts and nipples; Z79.818 Long term (current) use of other agents affecting estrogen receptors and estrogen levels; K52.9 Noninfective gastroenteritis and colitis, unspecified; E88.09 Other disorders of plasma-protein metabolism, not elsewhere classified; I27.20 Pulmonary hypertension, unspecified; D50.9 Iron deficiency anemia, unspecified; I26.99 Other pulmonary embolism without acute cor pulmonale; G62.0 Drug-induced polyneuropathy; T45.1X5A Adverse effect of antineoplastic and immunosuppressive drugs, initial encounter; Z79.52 Long term (current) use of systemic steroids; Z79.01 Long term (current) use of anticoagulants; Z79.2 Long term (current) use of antibiotics; Z79.899 Other long term (current) drug therapy
CPT/HCPCS: 36591; 80053; 83735; 85025; 99215; 99999

== ENCOUNTER 2022-03-18 21:51 | Emergency (ER) | payer MEDICARE, OTHER, SELFPAY ==
[2022-03-18 21:52] VITALS: BMI 35.9
[2022-03-18 21:57] VITALS: BP 81/50; PULSE 136; RESP 12; TEMP 36.4; O2SAT 89
--- NOTE | 2022-03-18 21:57 | ECG_ITS ---
[facility] Test Date: 2022-03-18 Pat Name: Bee Zheng Department: Room: Gender: Female [employer]: : 1950 Requested By: Jayme Stack Order Number: [id number] Roxanne MD: Oralia Berumen M.D. Measurements Intervals [place] Rate: 124 P: 48 NE: 110 QRS: 149 QRSD: 156 T: 8 QT: 333 QTc: 480 Interpretive Statements SINUS TACHYCARDIA WITH SHORT NE INTERVAL INTRAVENTRICULAR CONDUCTION DELAY [130+ ms QRS DURATION] RIGHT VENTRICULAR HYPERTROPHY [SOME/ALL OF: PROMINENT R IN V1, LATE TRANSITION, RAD, YVETTE, SSS] Compared to ECG 10/21/2021 19:14:19 Short NE interval now present Intraventricular conduction delay now present Electronically Signed On 03-20-2022 11:45:04 CDT by Oralia Berumen M.D. [id number]
--- NOTE | 2022-03-18 21:57 | XRR_ITS ---
PROCEDURE INFORMATION: Exam: XR Chest Exam date and time: 03/18/2022 10:03 PM Age: 71 years old Clinical indication: Other: Code TECHNIQUE: Imaging protocol: XR of the chest. Views: 1 view. COMPARISON: CR XR chest 2V* [id number] 02/25/2022 4:48 PM FINDINGS: Tubes, catheters and devices: Endotracheal tube is 4.3 cm above patrice. Pre-existing tunneled chest port on the left terminates in the mid SVC without change from prior. Lungs: Unremarkable. No consolidation. Pleural spaces: Left chest hazy opacification most likely represents a layering pleural effusion. Negative for pneumothorax. Heart/Mediastinum: Cardiac silhouette enlargement is unchanged in size and contour prior. Diaphragm: Elevated left diaphragm. Bones/joints: Unremarkable. XR/XR chest 1V portable [id number] IMPRESSION: 1. Satisfactory endotracheal tube position. 2. Suspect left-sided pleural effusion.
--- NOTE | 2022-03-18 22:22 | PC.NURSE ---
family at bedside.
--- NOTE | 2022-03-18 22:23 | ED_ITS ---
HPI - General Adult General: Chief complaint: Cardiac Arrest/CPR Stated complaint: post code Time Seen by Provider: 03/18/22 21:55 Source: EMS Mode of arrival: EMS Limitations: altered mental status History of Present Illness: 71-year-old female has extensive medically history who had found down and had a cardiac arrest EMS states they had worked her for roughly 20 to 25 minutes she is in [facility] they did intubate her given multiple rounds epinephrine she had return of spontaneous circulation patient is intubated at this time. Review of Systems General: Reports: ROS unobtainable due to mental status PFSH ED PFSH: Medical History (Updated 03/19/22 @ 00:20 by Jayme Stack MD) Acute massive pulmonary embolism (05/02/21) Anemia Bilateral breast cancer Chronic diarrhea Drug-induced peripheral neuropathy Chemotherapy Edema leg History of DVT (deep vein thrombosis) Left lower extremity, approximately 10 years ago, preceded first cancer diagnosis History of endometrial cancer Status post hysterectomy and bilateral salpingo-oophorectomy with postoperative HDR implant radiation in 2014 Hypotension Hypothyroidism Obstructive cardiovascular shock Post-radiation pneumonitis Pulmonary hypertension Surgical History History of colonoscopy (~09/2020) History of hernia repair History of hysterectomy Port-A-Cath in place S/P insertion of IVC (inferior vena caval) filter Status post bilateral mastectomy Family History Mother Cancer Daughter No problems noted. Brother Bleeding disorder Other CAD (coronary artery disease) Hyperlipidemia Hypertension Lung disease Psychiatric illness Stroke Suicide Denies family history of Diabetes Clotting disorder Dementia Chronic kidney disease (CKD) Anesthesia complication Social History Smoking and tobacco status: former smoker Quit status (tobacco): has quit using tobacco Year quit tobacco: 2010 Former quit date comment: Hx of 1.5 PPD x 40 Years Second hand smoke exposure: No Smoking risk assessment/counseling performed?: No Alcohol intake: former Former alcohol use details: Previously drank beer regularly but none in about a year Counseling given: No Counseling given: No Lives independently: Yes Household members: none History of recent travel: No Current gender identity: Female Physical Exam Const: OTHER: unresponsive and intubated HENMT: COMMON NORMALS: normocephalic and atraumatic HEAD & SCALP: normocephalic and atraumatic Eye: OTHER: pupils unresponsive Neck/C-Spine: COMMON NORMALS: full ROM Chest: COMMONS NORMALS: normal inspection of the chest and normal palpation of entire chest wall Resp: OTHER: intubated with bilateral breath sounds Cardio: COMMON NORMALS: regular rate and regular rhythm RATE: regular rate RHYTHM: regular rhythm GI: COMMON NORMALS: Normal to inspection, nondistended, normoactive bowel sounds present Extremity: COMMON NORMALS: normal to inspection Neuro: OTHER: unresponsive Psych: OTHER: unrespopnsive Skin: COMMON NORMALS: no rashes or lesions noted GENERAL SKIN EXAM: no rashes or lesions noted Course Reevaluation(s): Reevaluation #1: Have spoken to family at length including patient's daughter who is power of assistant county attorney patient's daughter states that she had had a DNR but she was not there when they had done the chest compressions and intubated her. At this point she has been leaning towards pulling the tube and making her completely comfort care. Patient has not shown any responsiveness her pupils are still unreactive no corneal response no movement whatsoever and she is not on any sedatives. Her blood pressure is continued to decrease and is currently 60/41 I have offered to start an epinephrine drip but at this time her daughter does not want to do the epinephrine drip at this time other family is here and they are not ready to make her completely comfort care they want to keep her intubated on the breathing machine but no other treatment at this time. Time: 22:43 Reevaluation #2: At this time patient family has decided to make patient comfort care will extubate patient at this time Time: 23:48 Vital Signs: Vital signs: Vital Signs Temperature 97.6 F 03/18/22 21:57 Pulse Rate 112 H 03/18/22 23:14 Respiratory Rate 15 03/18/22 23:58 Blood Pressure 58/41 03/18/22 23:14 Pulse Oximetry 99 03/18/22 23:14 [facility] - General Adult Medical Decision Making Patient presents here post cardiac arrest patient was originally DNR and family made decision to make her comfort care patient did pass away under time of is 0019 Lab Data : 03/18/22 22:16 03/18/22 22:16 Radiology Impressions Chest X-Ray 03/18/22 21:57 IMPRESSION: 1. Satisfactory endotracheal tube position. 2. Suspect left-sided pleural effusion. Laboratory Results WBC 5.3 10^3/uL (4.0-10.0) 03/18/22 22:16 RBC 2.83 10^6/uL (4.1-5.3) L 03/18/22 22:16 Hgb 10.2 g/dL (11.5-15.3) L 03/18/22 22:16 Hct 33.4 % (37.0-47.0) L 03/18/22 22:16 MCV 118.0 fl (81-99) H 03/18/22 22:16 MCH 36.0 pg (28.0-34.0) H 03/18/22 22:16 MCHC 30.5 g/dL (30.0-36.0) 03/18/22 22:16 RDW 15.9 % (12.1-15.1) H 03/18/22 22:16 Plt Count 138 10^3/cmm (130-400) 03/18/22 22:16 MPV 10.4 fL (7.4-10.4) 03/18/22 22:16 Lymph % (Auto) Not Reportable 03/18/22 22:16 [place] % (Auto) Not Reportable 03/18/22 22:16 Lymph # (Auto) Not Reportable 03/18/22 22:16 [place] # (Auto) Not Reportable 03/18/22 22:16 Total Counted 100 (0-100) 03/18/22 22:16 Atypical Lymphs % 4.0 % (0-5) 03/18/22 22:16 Absolute Neutrophils 3.0 10^3/cmm (1.4-6.5) 03/18/22 22:16 Segmented Neutrophils 10 % 03/18/22 22:16 Abs Segm Neuts (Man) 0.5 10/cmm (1.6-7.1) L 03/18/22 22:16 Band Neutrophils 46.0 % 03/18/22 22:16 Abs Band Neuts (Man) 2.4 10^3/cmm (0.0-1.2) H 03/18/22 22:16 Absolute Lymphocytes 1.6 10^3/cmm (1.2-3.4) 03/18/22 22:16 Lymphocytes (Manual) 26 % 03/18/22 22:16 Monocytes (Manual) 1.0 % 03/18/22 22:16 Absolute Monocytes 0.1 10^3/cmm (0.1-0.6) 03/18/22 22:16 Eosinophils (Manual) 0 % 03/18/22 22:16 Absolute Eosinophils 0.0 10^3/cmm (0.0-0.7) 03/18/22 22:16 Basophils (Manual) 0.0 % 03/18/22 22:16 Absolute Basophils 0.0 10^3/cmm (0.0-0.2) 03/18/22 22:16 Metamyelocytes 12.0 % 03/18/22 22:16 Myelocytes 1.0 % 03/18/22 22:16 Nucleated RBCs 1.0 /100WBC (0-1) 03/18/22 22:16 Platelet Estimate Normal (Normal) 03/18/22 22:16 Sodium 135 mmol/L (136-145) L 03/18/22 22:16 Potassium 4.7 mmol/L (3.5-5.1) 03/18/22 22:16 Chloride 101 mmol/L (98-107) 03/18/22 22:16 Carbon Dioxide 17 mmol/L (22-29) L 03/18/22 22:16 Anion Gap 21.7 (5-19) H 03/18/22 22:16 BUN 19 mg/dL (8-23) 03/18/22 22:16 Creatinine 1.5 mg/dL (0.5-0.9) H 03/18/22 22:16 GFR Calculation 34.4 mL/min (90-130) L 03/18/22 22:16 Glucose 106 mg/dL (65-115) 03/18/22 22:16 Calculated Osmolality 283 mOsm/kg (285-295) L 03/18/22 22:16 Calcium 8.3 mg/dL (8.5-10.5) L 03/18/22 22:16 Magnesium 1.6 mg/dL (1.7-2.3) L 03/18/22 22:16 Total Bilirubin 0.8 mg/dL (0.15-1.2) 03/18/22 22:16 AST 161 U/L (0-32) H 03/18/22 22:16 ALT 80 U/L (0-33) H 03/18/22 22:16 Alkaline Phosphatase 128 IU/L (35-105) H 03/18/22 22:16 NT-Pro-B Natriuret Pep 70990 pg/mL (0-125) H 03/18/22 22:16 Total Protein 4.5 g/dL (6.6-8.7) L 03/18/22 22:16 Albumin 1.6 g/dL (3.5-5.2) L 03/18/22 22:16 Globulin 2.9 g/dL (1.3-4.6) 03/18/22 22:16 Critical Care Time Critical Care Time: Critical Care Time: Yes Total Critical Care Time: 40 Attestation: The high probability of a clinically significant, sudden or life threatening deterioration of the patient's cv system(s) required my full and direct attention, intervention and personal management. The critical care time is as shown. This time is in addition to time spent performing any reported procedures but includes the following: [x] Data and vital sign review and interpretation [x] Patient assessment, examination and intervention [x] Documentation [x] Medication orders and management Discharge Plan Discharge Patient Disposition: Clinical Impression: Cardiac arrest Coding Level of Care Code ED Sign Builder for Dawood Barrientos Exam Detailed
[2022-03-18 22:24] LABS: Hematocrit 33.4 % (37.0-47.0); Hemoglobin 10.2 g/dL (11.5-15.3); Mean Corpuscular HGB Conc 30.5 g/dL (30.0-36.0); Mean Platelet Volume 10.4 fL (7.4-10.4); Platelet Count 138 10^3/cmm (130-400); Red Blood Count 2.83 10^6/uL (4.1-5.3); Red Cell Distribution Width 15.9 % (12.1-15.1); White Blood Count 5.3 10^3/uL (4.0-10.0)
[2022-03-18 22:25] VITALS: RESP 18
[2022-03-18 22:50] LABS: Slide Review Slide Review Perform
[2022-03-18] MEDS: sodium chloride 0.9% 1,000 ML 999 ML IV (22:50)
[2022-03-18 22:51] LABS: Absolute Segmented Neutrophil 0.5 10/cmm (1.6-7.1); Band Neutrophils Absolute 2.4 10^3/cmm (0.0-1.2); Eosinophils 0 %; Lymphocytes 26 %; Lymphocytes Absolute 1.6 10^3/cmm (1.2-3.4); Monocytes Absolute 0.1 10^3/cmm (0.1-0.6); Platelet Estimate Normal (Normal); Segmented Neutrophils 10 %; Total Cells Counted 100 (0-100)
[2022-03-18 22:56] VITALS: BP 68/42; PULSE 115; RESP 14; O2SAT 100
[2022-03-18 22:58] VITALS: BP 68/42; PULSE 114; RESP 16; O2SAT 99
--- NOTE | 2022-03-18 23:02 | PC.NURSE ---
Family in room. Ice water given to family,no other needs at this time.
[2022-03-18 23:13] LABS: Alanine Aminotransferase 80 U/L (0-33); Albumin Level 1.6 g/dL (3.5-5.2); Alkaline Phosphatase 128 IU/L (35-105); Anion Gap 21.7 (5-19); Aspartate Amino Transferase 161 U/L (0-32); Blood Urea Nitrogen 19 mg/dL (8-23); Calcium 8.3 mg/dL (8.5-10.5); Carbon Dioxide 17 mmol/L (22-29); Chloride 101 mmol/L (98-107); Globulin 2.9 g/dL (1.3-4.6); Glomerular Filtration Rate 34.4 mL/min (90-130); Glucose 106 mg/dL (65-115); Magnesium 1.6 mg/dL (1.7-2.3); Osmolality Calculated 283 mOsm/kg (285-295); Potassium 4.7 mmol/L (3.5-5.1); Sodium 135 mmol/L (136-145); Total Bilirubin 0.8 mg/dL (0.15-1.2); Total Protein 4.5 g/dL (6.6-8.7)
[2022-03-18 23:14] VITALS: BP 58/41; PULSE 112; RESP 17; O2SAT 99
[2022-03-18 23:23] LABS: NT Pro B Type Natriuretic Pept 13735 pg/mL (0-125)
[2022-03-18 23:58] VITALS: RESP 15
[2022-03-18] MEDS: morphine 4 mg/mL SDV 1 mL IVP (23:58)
[2022-03-18] MEDS: LORazepam 2 mg/mL INJ 1 mL 1 MG IVP (23:59)
--- NOTE | 2022-03-18 23:59 | PC.NURSE ---
respiratory at bedside to extubate patient.
--- NOTE | 2022-03-19 00:04 | PC.NURSE ---
Patient extubated 0003 per Antonio CONSTRUCTION TECHNICIAN . patient on cardiac cath technician. Family at bedside.
--- NOTE | 2022-03-19 00:23 | PC.NURSE ---
0019 - patient noted asystole on monitor. Provider Dr. Stack at bedside . Time of called @ 0019. Family at bedside.
--- NOTE | 2022-03-19 00:39 | PC.NURSE ---
[employer] Sample Clerk contacted, pt body released per Moshe Santiago. [facility] contacted, pt is NOT candidate for tissue donation. Body release pending [facility] referral. [facility] Ref # [id number]
--- NOTE | 2022-03-19 01:07 | PC.NURSE ---
[facility] Pt is potential candidate for [facility]. Shaun time 0100. [facility] to speak with daughter before we are to release body to home.
--- NOTE | 2022-03-19 01:16 | PC.NURSE ---
0100- patient transported to [facility] via stretcher per myself and household appliance installer Poonam BOURGEOIS .
== END 2022-03-19 01:17 | disposition expired ==
PROVIDERS: Emergency Provider Emergency Medicine; PCP Nurse Practitioner Family
DX: I46.9 Cardiac arrest, cause unspecified (principal); E03.9 Hypothyroidism, unspecified; I27.20 Pulmonary hypertension, unspecified; Z86.711 Personal history of pulmonary embolism
CPT/HCPCS: 51702; 71045; 80053; 83735; 83880; 85007; 85025; 93005; 94002; 94799; 96361; 96374; 96375; 99285; J2060; J2270; J7030